=== PATIENT | male | born 1940 ===

== ENCOUNTER → 2020-05-28 13:55 | Outpatient (BNVA) | payer MEDICARE, SELFPAY | PROVIDERS: PCP Internal Medicine; Referring Provider Internal Medicine; Visit Provider Internal Medicine Cardiovascular Disease | DX: Z45.018 Encounter for adjustment and management of other part of cardiac pacemaker (principal); I25.10 Atherosclerotic heart disease of native coronary artery without angina pectoris; R07.89 Other chest pain | CPT/HCPCS: 99212 ==

== ENCOUNTER → 2020-06-11 08:18 | Outpatient (REF) | payer MEDICARE, SELFPAY ==
--- NOTE | 2020-06-11 | NM_ITS ---
Myocardial perfusion study Indication: Chest pressure with prior coronary artery disease and bypass to evaluate for myocardial ischemia Technique: The patient was brought in for a Lexiscan perfusion study on 06/11/2020. Patient performed low-level exercise and was injected 0.4 mg of Lexiscan intravenously. Within a minute of injection, 25 mCi of sestamibi was given intravenously. Images were obtained using the SPECT gamma camera interlaced with the gating device. Images were obtained in supine position. Resting perfusion study was performed on 06/15/2020. Patient was administered 25 mCi of sestamibi intravenously at rest. Images were then obtained in supine position. Images obtained with and without CT attenuation. Total DLP 57 mGy-cm. Images were processed with the software and compared side to side in short axis, horizontal long axis and vertical long axis views. Findings: The stress perfusion study showed non attenuated images show moderately reduced uptake in the basal inferior wall of the LV myocardium as well as mildly reduced uptake in the septum of the LV myocardium. Remainder of the LV myocardium is normally perfused. Attenuation corrected images show mildly reduced uptake in the basal inferior as well as distal anterior and apex of the LV myocardium.. The gated study shows normal LV systolic function with calculated LVEF of 69%. LV cavity is not present size. The gated study shows normal wall thickening and contraction of all segments except the basal inferior segment. Resting study shows no significant change in perfusion pattern compared to stress perfusion study. Gating at rest reveals normal systolic wall motion with ejection fraction at greater than 70 %. 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 NM/NM merlyn perf SPECT rest & str Impression: 1. Myocardial perfusion imaging study shows no ischemia with inferobasal NONTRANSMURAL infarct 2. Gated LVEF is 69% 3. Transient ischemic dilatation not present EKG is nondiagnostic for ischemia
--- NOTE | 2020-06-11 08:20 | CA_ITS ---
Transthoracic Echocardiogram Patient (Last, First, Middle): Kurt Henderson, Gender: Male Date of : 1940 Age: 79 Procedure Date: 06/11/2020 Procedure Type: Transthoracic Echocardiogram Location: OP Height: 165.1 cm Weight: 70.31 kg BSA: 1.78 m2 Heart Rate: bpm BP: 110 / 80 mmHg [employer] Bl[employer]: JOANNA Referring MD: David Perez MD Resource Conservationist: David Perez MD Symptoms: I10 - Essential (primary) hypertension, CAD Study Quality: Good ECG Rhythm: Sinus Conclusions: - 1. Normal LV systolic function with grade 1 diastolic dysfunction with regional wall motion abnormality suggestive underlying coronary disease 2. Normal cardiac valvular Doppler with calcific aortic valve changes 3. Normal RV systolic pressure 4. No pericardial effusion Findings Left Ventricle Normal left ventricular size, thickness, and systolic function. The visually estimated ejection fraction is between 55-60%. Spectral Doppler is indicative of an impaired relaxation filling pattern. E/E prime ratio is <8, consistent with normal filling pressures. Evidence suggests grade I (mild) diastolic dysfunction. Wall Motion Rest Echo Findings The basal inferior and basal inferoseptal segments are akinetic. All other scored wall segments showed normal motion. Right Ventricle Normal right ventricular cavity size and systolic function. There is a pacemaker wire seen in the right ventricle. Atria The left atrium is likely dilated. There is no evidence of interatrial shunt. The right atrium is normal in size. A pacemaker wire is identified in the right atrium. Aortic Valve There is mild calcification of the aortic valve. There is moderate thickening of the aortic valve. There is no aortic valve stenosis. There is no aortic valve regurgitation. Mitral Valve There is mild anterior and posterior mitral leaflet thickening. There is trace mitral valve regurgitation. There is no mitral valve stenosis. Pulmonic Valve The pulmonic valve was not well visualized. Tricuspid Valve Likely normal tricuspid valve structure and function. There is mild tricuspid valve regurgitation. The right ventricular systolic pressure is normal. The right ventricular systolic pressure is 28 mmHg. There is no evidence of pulmonary hypertension. Great Vessels All visible segments of the aorta are normal in size. The pulmonary artery was not well visualized. Venous The inferior vena cava is normal in size and collapses greater than 50% with inspiration. Pericardium/Pleural There is no evidence of pericardial effusion. Prior Study Comparison No previous study in the last 5 years for comparison Measurements 2D Linear Measurements IVSd: 0.90 0.6-0.9/0.6-1.0 cm LVIDd: 4.26 3.9-5.3/4.2-5.9 cm LVIDd Index: 2.39 2.4-3.2/2.2-3.1 cm/m2 LVIDs: 3.33 2.0-3.6 cm LVPWd: 1.17 0.7-1.1 cm Ao Root: 2.90 2.1-3.5 cm LA Diam: 3.20 2.7-3.8/3.0-4.0 cm LAIDs Index: 1.80 1.5-2.3 cm/m2 LV Mass: 183.51 67-162/88-224 g LV Mass Index: 103.09 43-95/49-115 g/m2 LVOT Diam: 2.20 3.0+(-)1.3 cm 2D Systolic Function EF 4C: 64.90 >55% EF 2C: 54.80 >55% EF BiP: 59.00 >55% Mitral Valve MV Pk E: 0.48 MV PK A: 0.55 MV Decel Time: 303.00 E/A: 0.90 E'Lateral: 8.49 E'Medial: 5.22 E/E' Med: 9.30 E/E' Lat: 5.70 PHT: 89.00 MVA PHT: 2.47 Decel Ransom: 1.60 Aortic Valve AoV Pk Ramana: 0.94 AoV Pk Grad: 4.00 LVOT LVOT Pk Ramana: 0.87 LVOT Mn Ramana: 0.57 LVOT VTI: 0.20 LVOT Pk Grad: 3.00 LVOT Mn Grad: 2.00 LVOT Diam: 2.20 LVOT Area: 3.80 Diastolic Function MV Pk E: 0.48 MV Pk A: 0.55 E/A: 0.90 E'Medial: 5.22 E/E' Med: 9.30 E' Laterial: 8.49 E/E' Lat: 5.70 Tricuspid Valve TR Pk Ramana: 2.50 TR Pk Grad: 25.00 RA Press: 3.00 RVSP: 28.00 Great Vessels Aorta Ao Root-2D: 2.90 2.0-3.7 cm Updated in Other Vendor System with Status of Final David Perez MD electronically signed on 06/12/2020 2:43:32 PM with status of Final
--- NOTE | 2020-06-11 08:20 | CA_ITS ---
Acquisition Time: 2020-06-11 10:16:24 Total Exercise Time: 00:02:00 Test Indications: cp Medications: see chart Protocol: LEXISCAN Max HR: 075 BPM 52% of Pred: 143 BPM Max BP: 116/078 mmHG Max Work Load: 1.0 METS Pharmacological stress test with Lexiscan injection, while sitting and kicking his legs, without anginal symptoms, with sinus arrythmia and one PVC, with normotensive response to injection, with nondiagnostic EKG for ischemia. Nuclear images pending. Test reviewed with Dr Perez. Referred By: David Perez Overread By: TOM MOLINA
== END ==
LOC: HO.CARD 08:18
PROVIDERS: PCP Internal Medicine Cardiovascular Disease; Visit Provider Internal Medicine Cardiovascular Disease
DX: I25.10 Atherosclerotic heart disease of native coronary artery without angina pectoris (principal); R07.89 Other chest pain; I10 Essential (primary) hypertension
CPT/HCPCS: 78452; 93017; 93306; A9500; J0280; J2785

== ENCOUNTER → 2020-12-01 11:10 | Outpatient (BNVA) | payer MEDICARE, SELFPAY | PROVIDERS: PCP Internal Medicine; Referring Provider Internal Medicine; Visit Provider Internal Medicine Cardiovascular Disease | DX: Z45.018 Encounter for adjustment and management of other part of cardiac pacemaker (principal); I25.10 Atherosclerotic heart disease of native coronary artery without angina pectoris | CPT/HCPCS: 99212 ==

== ENCOUNTER 2021-03-16 14:01 | Inpatient (IN) | payer MEDICARE, SELFPAY ==
--- NOTE | ~2021-03-16 | XR_ITS ---
EXAMINATION: XR KNEE, LEFT CLINICAL INFORMATION: Left knee swelling COMPARISON: None TECHNIQUE: Two views of the left knee. FINDINGS: No fracture or dislocation is seen. The bones are osteopenic. There is degenerative meniscal calcification. There is joint space narrowing at the medial femoral tibial joint. There is joint space narrowing and osteophyte formation at the patellofemoral joint. There is a moderate to large joint effusion. There is soft tissue arterial calcification. XR/XR knee LT 2V IMPRESSION: Moderate to large joint effusion and degenerative changes.
--- NOTE | ~2021-03-16 | XR_ITS ---
EXAMINATION: XR ELBOW, RIGHT CLINICAL INFORMATION: Fracture COMPARISON: Previous x-ray 03/16/2021 TECHNIQUE: AP, lateral, and oblique views of the right elbow. FINDINGS: There is a comminuted displaced fracture of the olecranon. This appears unchanged from recent exam. No other fracture is seen. Joint spaces are normal. There is an elbow joint effusion. There is overlying soft tissue swelling. There is a splint. XR/XR elbow RT 2V IMPRESSION: No change in the comminuted displaced olecranon fracture.
--- NOTE | ~2021-03-16 | XR_ITS ---
EXAMINATION: XR ELBOW, RIGHT CLINICAL INFORMATION: Trauma, pain COMPARISON: None TECHNIQUE: AP, lateral, and oblique views of the right elbow. FINDINGS: There is comminuted fracture involving the proximal olecranon. It is uncertain if this extends to the articular surface. There is no destructive process or dislocation. The distal humerus and proximal radius appear intact. There is small medial epicondylar spur. No visible elbow capsular effusion. XR/XR elbow RT min 3V IMPRESSION: Comminuted fracture proximal olecranon.
--- NOTE | ~2021-03-16 | CT_ITS ---
EXAMINATION: CT HEAD WITHOUT CONTRAST CT CERVICAL SPINE WITHOUT CONTRAST CLINICAL INFORMATION: Fall. COMPARISON: CT head and cervical spine February 27, 2020, December 03, 2019. TECHNIQUE: Imaging was performed from the skull base to vertex without intravenous administration of contrast. In addition, helical noncontrast CT imaging was acquired through the cervical spine and source images were reviewed along with axial reconstructions and sagittal and coronal MPRs. [This CT examination was performed using dose optimization techniques as appropriate, variously including the following: *Automated exposure control *Adjustment of mA and/or kV according to patient size (this includes techniques or standardized protocols for targeted exams where dose is matched to indication/reason for exam; i.e. extremities or head) *Use of iterative reconstruction technique] DLP: 1042 mGy-cm FINDINGS: HEAD: No intracranial mass, hemorrhage, or midline shift is visualized. There is generalized global volume loss. There is mild prominence of the ventricles and the sulci . There is mild hypodensity of the periventricular white matter due to chronic small vessel ischemic disease. There are vascular calcifications of the internal carotid arteries bilaterally. . No extra-axial collections are identified. Small volume of sinus mucosal disease in the inferior right maxillary sinus. The right frontal sinus is entirely opacified. Small volume of mucosal thickening in the anterior right ethmoid sinus. Mastoid air cells and middle ear cavities are normally aerated. CERVICAL SPINE: There is no evidence of acute cervical spine fracture. Vertebral bodies remain normal in height. Cervical vertebrae have normal alignment. There is multilevel degenerative spondylosis of the cervical spine with disc height narrowing and endplate spurs and facet joint arthrosis No pre- or paravertebral soft tissue abnormality is identified. There is an irregular 1.5 cm triangular lesion in the right upper lobe. This is unchanged since the CT of cervical spine December 03, 2019. This does have a thin calcification within it.. There is a partially calcified 7 mm lung nodule in the right upper lobe. Pacemaker leads partially visualized in the superior mediastinum. There is extensive vascular calcifications of the aorta and of carotid arteries. CT/CT cervical spine wo con IMPRESSION: 1. No acute intracranial pathology. 2. No CT evidence of acute cervical spine fracture or traumatic subluxation 3. Irregular 1.5 cm lesion right upper lobe. This is chronic unchanged since CAT scan of December 03, 2019.
--- NOTE | ~2021-03-16 | XR_ITS ---
EXAMINATION: RIGHT WRIST X-RAY CLINICAL INFORMATION: Pain post fall COMPARISON: None TECHNIQUE: 3 views of the right wrist FINDINGS: Bone alignment is normal. No fracture or dislocation is seen. There is arthritis at the first [facility] joint and trapezoid trapezium point joints. Soft tissues are unremarkable. XR/XR chest 1V IMPRESSION: Arthritis. No fracture or dislocation seen. EXAMINATION: Right elbow x-ray CLINICAL INFORMATION: Pain post fall COMPARISON: None. TECHNIQUE: 3 views of the right elbow FINDINGS: There is a comminuted displaced fracture of the olecranon. No other fracture is seen. Joint spaces are normal. There is an elbow joint effusion. There is soft tissue swelling over the fracture. IMPRESSION: Comminuted displaced fracture of the olecranon. EXAMINATION: Right shoulder x-ray CLINICAL INFORMATION: Pain post fall COMPARISON: None. TECHNIQUE: 3 views of the right shoulder FINDINGS: Bone alignment is normal. No fracture or dislocation is seen. The glenohumeral joint is normal. There is arthritis at the acromioclavicular joint. Soft tissues are unremarkable. IMPRESSION: Arthritis at the acromioclavicular joint. EXAMINATION: Chest x-ray CLINICAL INFORMATION: Pain post fall COMPARISON: Previous chest x-ray August 2016 TECHNIQUE: One view of the chest FINDINGS: The cardiac silhouette is slightly enlarged. Thoracic aorta is tortuous. The pulmonary tavon appear prominent. There is a new right subclavian dual chamber pacemaker. There is a small dense right upper lobe nodule that appears unchanged. The lungs are otherwise clear. There is no pleural effusion or pneumothorax. There are surgical clips in the left axilla. There are degenerative changes of the spine. IMPRESSION: No evidence for acute disease in the chest. Prominent pulmonary tavon questionable for enlarged pulmonary arteries versus lymphadenopathy.
--- NOTE | ~2021-03-16 | XR_ITS ---
EXAMINATION: RIGHT WRIST X-RAY CLINICAL INFORMATION: Pain post fall COMPARISON: None TECHNIQUE: 3 views of the right wrist FINDINGS: Bone alignment is normal. No fracture or dislocation is seen. There is arthritis at the first INTERMEDIATE joint and trapezoid trapezium point joints. Soft tissues are unremarkable. XR/XR wrist RT min 3V IMPRESSION: Arthritis. No fracture or dislocation seen. EXAMINATION: Right elbow x-ray CLINICAL INFORMATION: Pain post fall COMPARISON: None. TECHNIQUE: 3 views of the right elbow FINDINGS: There is a comminuted displaced fracture of the olecranon. No other fracture is seen. Joint spaces are normal. There is an elbow joint effusion. There is soft tissue swelling over the fracture. IMPRESSION: Comminuted displaced fracture of the olecranon. EXAMINATION: Right shoulder x-ray CLINICAL INFORMATION: Pain post fall COMPARISON: None. TECHNIQUE: 3 views of the right shoulder FINDINGS: Bone alignment is normal. No fracture or dislocation is seen. The glenohumeral joint is normal. There is arthritis at the acromioclavicular joint. Soft tissues are unremarkable. IMPRESSION: Arthritis at the acromioclavicular joint. EXAMINATION: Chest x-ray CLINICAL INFORMATION: Pain post fall COMPARISON: Previous chest x-ray August 2016 TECHNIQUE: One view of the chest FINDINGS: The cardiac silhouette is slightly enlarged. Thoracic aorta is tortuous. The pulmonary tavon appear prominent. There is a new right subclavian dual chamber pacemaker. There is a small dense right upper lobe nodule that appears unchanged. The lungs are otherwise clear. There is no pleural effusion or pneumothorax. There are surgical clips in the left axilla. There are degenerative changes of the spine. IMPRESSION: No evidence for acute disease in the chest. Prominent pulmonary tavon questionable for enlarged pulmonary arteries versus lymphadenopathy.
--- NOTE | ~2021-03-16 | XR_ITS ---
EXAMINATION: RIGHT WRIST X-RAY CLINICAL INFORMATION: Pain post fall COMPARISON: None TECHNIQUE: 3 views of the right wrist FINDINGS: Bone alignment is normal. No fracture or dislocation is seen. There is arthritis at the first PENITENTIARY joint and trapezoid trapezium point joints. Soft tissues are unremarkable. XR/XR shoulder RT min 2V IMPRESSION: Arthritis. No fracture or dislocation seen. EXAMINATION: Right elbow x-ray CLINICAL INFORMATION: Pain post fall COMPARISON: None. TECHNIQUE: 3 views of the right elbow FINDINGS: There is a comminuted displaced fracture of the olecranon. No other fracture is seen. Joint spaces are normal. There is an elbow joint effusion. There is soft tissue swelling over the fracture. IMPRESSION: Comminuted displaced fracture of the olecranon. EXAMINATION: Right shoulder x-ray CLINICAL INFORMATION: Pain post fall COMPARISON: None. TECHNIQUE: 3 views of the right shoulder FINDINGS: Bone alignment is normal. No fracture or dislocation is seen. The glenohumeral joint is normal. There is arthritis at the acromioclavicular joint. Soft tissues are unremarkable. IMPRESSION: Arthritis at the acromioclavicular joint. EXAMINATION: Chest x-ray CLINICAL INFORMATION: Pain post fall COMPARISON: Previous chest x-ray August 2016 TECHNIQUE: One view of the chest FINDINGS: The cardiac silhouette is slightly enlarged. Thoracic aorta is tortuous. The pulmonary tavon appear prominent. There is a new right subclavian dual chamber pacemaker. There is a small dense right upper lobe nodule that appears unchanged. The lungs are otherwise clear. There is no pleural effusion or pneumothorax. There are surgical clips in the left axilla. There are degenerative changes of the spine. IMPRESSION: No evidence for acute disease in the chest. Prominent pulmonary tavon questionable for enlarged pulmonary arteries versus lymphadenopathy.
--- NOTE | ~2021-03-16 | XR_ITS ---
EXAMINATION: RIGHT WRIST X-RAY CLINICAL INFORMATION: Pain post fall COMPARISON: None TECHNIQUE: 3 views of the right wrist FINDINGS: Bone alignment is normal. No fracture or dislocation is seen. There is arthritis at the first JAIL joint and trapezoid trapezium point joints. Soft tissues are unremarkable. XR/XR elbow RT 2V IMPRESSION: Arthritis. No fracture or dislocation seen. EXAMINATION: Right elbow x-ray CLINICAL INFORMATION: Pain post fall COMPARISON: None. TECHNIQUE: 3 views of the right elbow FINDINGS: There is a comminuted displaced fracture of the olecranon. No other fracture is seen. Joint spaces are normal. There is an elbow joint effusion. There is soft tissue swelling over the fracture. IMPRESSION: Comminuted displaced fracture of the olecranon. EXAMINATION: Right shoulder x-ray CLINICAL INFORMATION: Pain post fall COMPARISON: None. TECHNIQUE: 3 views of the right shoulder FINDINGS: Bone alignment is normal. No fracture or dislocation is seen. The glenohumeral joint is normal. There is arthritis at the acromioclavicular joint. Soft tissues are unremarkable. IMPRESSION: Arthritis at the acromioclavicular joint. EXAMINATION: Chest x-ray CLINICAL INFORMATION: Pain post fall COMPARISON: Previous chest x-ray August 2016 TECHNIQUE: One view of the chest FINDINGS: The cardiac silhouette is slightly enlarged. Thoracic aorta is tortuous. The pulmonary tavon appear prominent. There is a new right subclavian dual chamber pacemaker. There is a small dense right upper lobe nodule that appears unchanged. The lungs are otherwise clear. There is no pleural effusion or pneumothorax. There are surgical clips in the left axilla. There are degenerative changes of the spine. IMPRESSION: No evidence for acute disease in the chest. Prominent pulmonary tavon questionable for enlarged pulmonary arteries versus lymphadenopathy.
[2021-03-16 14:29] VITALS: BP 135/75; PULSE 62; RESP 18; TEMP 36.7; O2SAT 93; BMI 25.7
--- NOTE | 2021-03-16 15:06 | ED_ITS ---
HPI - General Adult General Chief complaint: General Medical Stated complaint: fractured rt elbow Time Seen by Provider: 03/16/21 14:14 Source: patient and family Mode of arrival: ambulatory Limitations: no limitations History of Present Illness HPI narrative: 80-year-old male with past medical history CAD, hypertension, depression, diabetes, breast cancer presents to the emergency department with multiple complaints. He is accompanied by his daughter who is at the bedside she states that she was seen earlier by his PCP, who stated he had a right olecranon fracture. She states he fell yesterday while he got up to go to the bathroom. It is unclear whether this was a mechanical fall, or whether this fall was due to dizziness. When he fell he hit his head, it is unclear how long he was on the floor for, he denies LOC and SMITH. According to the daughter he also had another fall today, where he fell on his bottom. She states that they are not just worried about the fracture, but they state he has had a evident cognitive decline. Per the daughter he has been more depressed than usual, and states that he having aphasia. She has noticed this decrease in cognitive decline worsening over the past week. She also states that he appears confused. Prior to this fall, they report no other falls. History is limited due to patient not answering questions, he is only answering to yes or no questions He lives at home, with his daughter and his . Denies chest pain, shortness of breath, dizziness, fevers, chills, changes in urination, numbness, paresthesias. Patient's daughter states this is not close to the patient's baseline, and he appears altered and very weak. Currently taking Bactrim for a UTI daughter states that he has a few doses left Onset (ago): day(s) (1) Related Data Home Medications Medication Instructions Recorded Confirmed alendronate 70 mg tablet 70 mg PO QWEEK 05/28/20 12/01/20 bimatoprost 0.01 % eye drops 1 drp OPHTHALMIC (EYE) BEDTIME 05/28/20 12/01/20 finasteride 5 mg tablet 5 mg PO DAILY 05/28/20 12/01/20 lamotrigine 25 mg tablet 25 mg PO DAILY 05/28/20 12/01/20 metformin 500 mg tablet,extended 500 mg PO QAM 05/28/20 12/01/20 release 24 hr pantoprazole 40 mg tablet,delayed 40 mg PO DAILY 05/28/20 12/01/20 release bupropion HCl 100 mg tablet,12 hr 150 mg PO QAM tab 12/01/20 12/01/20 sustained-release Previous Rx's Medication Instructions Recorded isosorbide mononitrate 60 mg 60 mg PO DAILY #90 tab 07/24/20 tablet,extended release 24 hr metoprolol tartrate 25 mg tablet 25 mg PO BID 90 Days #180 tab 10/01/20 atorvastatin 80 mg tablet 80 mg PO DAILY #90 tab 12/31/20 Allergies Allergy/AdvReac Type Severity Reaction Status Date / Time metoprolol AdvReac Unknown bradycardia Verified 03/16/21 14:28 timolol AdvReac Unknown low bp Verified 03/16/21 14:28 Review of Systems Review of Systems: Constitutional : No Weight loss, No Fever, No Chills, + Fatigue, No Malaise ENT/Mouth : No sore throat, No Rhinorrhea Eyes: No Eye Pain, No Swelling, No Redness Cardiovascular : No Chest Pain, No SOB, No Dyspnea on Exertion, No Orthopnea, No Edema, No Palpitations Respiratory : No Cough, No Sputum, No Wheezing Gastrointestinal : No Nausea, No Vomiting, No Diarrhea, No Constipation, No abdominal Pain, No Hematochezia, No Melena Genitourinary : No Dysuria, No Urinary Frequency, No Hematuria, Musculoskeletal : + joint pain (right elbow), No Myalgias, + Joint Swelling (right elbow), +fall Skin : No Skin Lesions, No rash Neuro : + Weakness, No Numbness, No Dizziness, No Headache Psych : No Anxiety/Panic, + Depression Heme/Lymph: No Bruising, No Bleeding,No Lymphadenopathy Endocrine : No Polyuria, No Polydipsia All other systems reviewed and are negative [facility] Past Medical History Medical History CAD (coronary artery disease) Cardiac pacemaker in situ Diabetes History of left breast cancer HTN (hypertension) Hyperlipidemia Sick sinus syndrome Surgical History History of permanent cardiac pacemaker placement Hx of CABG Hx of cataract surgery Hx of mastectomy Family History Family History Father CVD (cardiovascular disease) Mother CVD (cardiovascular disease) Brother CVD (cardiovascular disease) Sister Diabetes Son Diabetes Social History Social History Alcohol intake: never Patient Tobacco Use Status: Never used Tobacco Use of substances other than those prescribed or required for medical reasons: No Advance Directives: No Advance Directives Information Provided: No Physical Exam Vital Signs: Vital Signs: Last Vital Signs Temp 98.0 F 03/16/21 14:29 Pulse 62 03/16/21 14:29 Resp 18 03/16/21 14:29 BP 135/75 03/16/21 14:29 Pulse Ox 93 03/16/21 14:29 Body Mass Index 25.7 Appearance: Alert. Oriented to person. No acute distress. Unable to speak in full sentences, evident aphasia. Eyes: Pupils equal, round and reactive to light. ENT: Pharynx normal. Neck: Normal inspection. Neck supple. CVS: Normal heart rate and rhythm. Pulses normal. Respiratory: No respiratory distress. Breath sounds normal. Abdomen: Soft and nontender. Skin: Skin warm and dry. Normal skin color. Normal skin turgor. Extremities: No lower extremity edema. No calf ttp + Ambulating with a shuffling gait + Edema, evident swelling and erythema and abrasions overlying right elbow. Patient denies pain with ROM to elbow, shoulder, wrist, hips and foot. 2+ pulses qual and bilateral to upper and lower extremities. Neuro: Oriened to person. +Diffuse weakness. No sensory deficit. No facial drooping Course Course Course Narrative: Sign-out given To CEFERINO Burton Procedures Orthopedic Splinting/Casting Injury #1: Side: right Upper Extremity Injury Location: elbow Upper Extremity Immobilizer: sling/shoulder immobilizer and posterior splint Additional Comments: NV intact post placement Medical Decision Making MDM Narrative Medical decision making narrative: 80-year-old male past history CAD, hypertension, diabetes these comment is risk cancer presents to the emergency department with a right olecranon fracture found by his PCP earlier today, and failure to thrive. Most of the history is obtained from patient's daughter who is at the bedside, since the patient is not able to answer questions he is able to answer yes no questions. This is a concern for his he has new onset aphasia that started a week ago. She states that he fell about 36 hours of all, the fall was unwitnessed, he states he hit his head, he fell onto his right side. His PCP found an olecranon fracture but he is not complaining of any pain. She has also noted that over the past week he has had some cognitive decline, he is not his usual self, not speaking in full sentences, seems confused, and is more depressed than usual. He lives at home with his daughter and . She also adds that he is currently taking Bactrim for a UTI. Upon physical examination he denies tenderness to palpation over the elbow, wrist, shoulder, hip, knee, foot. There is a small abrasion noted over the right olecranon. He has full passive range of motion. Upper and lower extremities have 2+ pulses equal and bilateral. No wrist drop noted. Cap refill less than 2 seconds. No evident signs of trauma to the head. He is diffusely weak upper and lower extremities. There is no facial droop noted. He is not speaking in full sentences, in just answers yes or no. Sensation intact upper and lower extremities To the patient's physical exam, patient's altered mentation, and history obta ined from the family a CT of the head will be done to rule out a bleed. Plan-EKG, CT of spine, CT of head and brain x-ray of right shoulder, elbow, wrist and chest, ammonia, calcium, urine drug screen, COVID, ethanol, lactic acid, magnesium, troponin, TSH, UA, VBG, acetaminophen level, BMP, CBC, CK, liver panel and blood cultures have been ordered. ECG Data Attestation: I personally reviewed and interpreted this ECG as follows: Prior ECG tracings: available for review Interpretation: Rate: 62 Rhythm: Normal sinus [place]: Left Normal P waves. Normal [place]. Normal QRS complex. ST T wave : No ST elevations, T-wave inversion qTC: Normal prior studies: When compared to previous EKG on 03/06/2019 no significant changes. No acute signs of ischemia. The study has been interpreted contemporaneously by me. . Discharge Plan Discharge Clinical Impression: Acute confusion Elbow fracture, right Qualifiers: Encounter type: initial encounter Fracture type: closed Qualified Code(s): S42.401A - Unspecified fracture of lower end of right humerus, initial encounter for closed fracture Prescriptions: No Action isosorbide mononitrate 60 mg tablet extended release 24 hr 60 mg PO DAILY Qty: 90 RF: 3 metoprolol tartrate 25 mg tablet 25 mg PO BID 90 Days Qty: 180 RF: 1 atorvastatin 80 mg tablet 80 mg PO DAILY Qty: 90 RF: 3 alendronate 70 mg tablet 70 mg PO QWEEK RF: 0 metformin 500 mg tablet extended release 24 hr 500 mg PO QAM RF: 0 lamotrigine 25 mg tablet 25 mg PO DAILY RF: 0 finasteride 5 mg tablet 5 mg PO DAILY RF: 0 pantoprazole 40 mg tablet,delayed release (DR/EC) 40 mg PO DAILY RF: 0 Lumigan 0.01 % drops 1 drp ophthalmic (eye) BEDTIME RF: 0 bupropion HCl 100 mg tablet sustained-release 12 hr 150 mg PO QAM RF: 0
--- NOTE | 2021-03-16 15:13 | ECG_ITS ---
Test Reason : WEAKNESS/FALL Blood Pressure : / mmHG Vent. Rate : 062 BPM Atrial Rate : 062 BPM P-R Int : 208 ms QRS Dur : 088 ms QT Int : 420 ms P-R-T Axes : 000 -07 027 degrees QTc Int : 426 ms Normal sinus rhythm Inferior infarct , old Abnormal ECG When compared with ECG of 06-MAR-2019 09:59, Sinus rhythm is now Present Referred By: Cristela Villa Electronically Signed By:KERMIT LEROY
[2021-03-16 15:38] VITALS: BP 174/82; PULSE 82; RESP 18; TEMP 36.6; O2SAT 98
[2021-03-16 16:25] LABS: COVID-19 Test Negative (Negative)
[2021-03-16 17:01] LABS: Acetaminophen LAB < 1 mcg/mL (<30); Alanine Aminotransferase 34 U/L (0-40); Alkaline Phosphatase 81 U/L (39-117); Anion Gap 15 (12-20); Aspartate Amino Transferase 32 U/L (5-37); Bilirubin Direct 0.5 mg/dL (0.0-0.5); Bilirubin Total 1.1 mg/dL (0.0-1.0); Blood Urea Nitrogen 18 mg/dL (9-16); Carbon Dioxide 21 mmol/L (22-29); Chloride 108 mmol/L (96-108); Creatinine Clr Calc Pharmacy 46.8; Estimated Glomerular Filt Rate > 60; Glucose Random 103 mg/dL (60-115); Potassium 4.7 mmol/L (3.3-5.1); Sodium 139 mmol/L (135-145); Total Protein 6.4 g/dL (6.5-8.0)
[2021-03-16 17:11] LABS: VBG Base Excess -3.1 mmol/L; VBG HCO3 21 mmol/L (22-26); VBG pCO2 37 mmHg; VBG pH 7.36 (7.32-7.43); VBG pO2 47 mmHg
[2021-03-16 17:13] LABS: Venous Blood Gas Refer to POC result
[2021-03-16 17:16] LABS: Ammonia 27 umol/L (13-55)
[2021-03-16 17:22] LABS: Lactic Acid 2.3 mmol/L (0.5-2.0)
[2021-03-16 17:23] LABS: Ethanol < 10 mg/dL
[2021-03-16 17:30] LABS: Troponin-I High Sensitivity 10.1 ng/L (<3.5-35.0)
--- NOTE | 2021-03-16 17:33 | PHA.MEDREC ---
Pharmacy Consult ? Medication Reconciliation Pharmacy has completed the medication reconciliation. There are no remarkable issue for provider's attention. Reviewed medication with patient's daughter. Patient has 5 pills left of Bactrim. Ysabel Mcbride, ArunD
--- NOTE | 2021-03-16 17:36 | PC.NURSE ---
pt a very difficult stick, call made to phlebotomy to continue blood draw for CBC
[2021-03-16 17:42] LABS: Glucose, Whole Blood 94 mg/dL (60-115)
[2021-03-16 17:45] LABS: Appearance Urine CLEAR; Color Urine YELLOW; Glucose Urine UA NEG (NEG); Leukocyte Esterase Urine NEG (NEG); Nitrite Urine NEG (NEG); Specific Gravity - Urine >= 1.030 (1.005-1.025); Urine Blood NEG (NEG); Urine Ketones 5 MG/DL (NEG); Urine Protein NEG (NEG-TRACE)
[2021-03-16 17:46] LABS: TSH reflex Free T4 1.77 uIU/mL (0.32-4.0)
[2021-03-16 18:08] LABS: Amphetamine Screen Urine Not Detected (Not Detect); Barbiturates, Urine Not Detected (Not Detect); Benzodiazepines Screen Urine Not Detected (Not Detect); Cannabinoid Screen Urine Not Detected (Not Detect); Cocaine Screen Urine Not Detected (Not Detect); Fentanyl, urine Not Detected (Not Detect); Opiate Screen Urine Not Detected (Not Detect); Phencyclidine Screen Urine Not Detected (Not Detect)
[2021-03-16 19:06] LABS: Reflex Lactate? Lactic Acid Added
[2021-03-16 19:19] VITALS: BP 132/68; PULSE 66; RESP 16; TEMP 36.8; O2SAT 94
[2021-03-16 19:31] LABS: Lactic Acid 1.5 mmol/L (0.5-2.0)
[2021-03-16 19:46] LABS: MANUAL DIFF FLAG NO
[2021-03-16 19:47] LABS: Basophils Percent Auto 0.5 % (0-2); Eosinophils Absolute Auto 0.1 X10*3/uL (0.0-0.4); Eosinophils Percent Auto 1.6 % (0-4); Hematocrit 40.5 % (42-52); Hemoglobin 13.6 g/dl (14.0-18.0); Imm Gran Abs Auto 0.03 X10*3/uL (0.00-0.03); Imm Gran Pct Auto 0.3 % (0.0-0.4); Lymphocytes Absolute Auto 0.7 X10*3/uL (1.2-4.9); Lymphocytes Percent Auto 7.5 % (20-40); Mean Corpuscular HGB Conc 33.6 g/dl (31.0-36.0); Mean Corpuscular Hemoglobin 30.4 pg (27.0-33.0); Mean Corpuscular Volume 90.4 fL (80-98); Monocytes Absolute Auto 0.6 X10*3/uL (0.1-1.2); Monocytes Percent Auto 6.9 % (2-11); Neutrophils Absolute Auto 7.2 X10*3/uL (2.0-8.3); Neutrophils Percent Auto 83.2 % (45-73); Platelet Count 205 X10*3/uL (160-400); Red Blood Count 4.48 X10*6/uL (4.60-5.80); Red Cell Distribution Width 13.8 % (11.0-16.0); White Blood Count 8.7 X10*3/uL (4.8-10.8)
[2021-03-16] MEDS: Ketorolac Tromethamine 15 MG/ML VIAL 30 MG IM (21:40)
[2021-03-16 23:48] VITALS: BP 155/65; PULSE 66; TEMP 36.3; O2SAT 93
[2021-03-17] VITALS (8 sets, daily range): BP systolic 120–180; BP diastolic 53–113; PULSE 55–74; RESP 16–20; TEMP 36.9–37.1; O2SAT 91–94
[2021-03-17] MEDS: 0.9 % Sodium Chloride 1,000 ML 999 ML IV (01:17)
[2021-03-17 01:19] LABS: Troponin-I High Sensitivity 10.7 ng/L (<3.5-35.0)
[2021-03-17 02:50] LABS: Glucose, Whole Blood 66 mg/dL (60-115)
[2021-03-17] MEDS: Glucose Gel 15 GM GEL..GRAM. PO (03:20)
--- NOTE | 2021-03-17 03:21 | PC.NURSE ---
plan for patient to go into the pod as he is unable to walk. Patient shuffles despite assistance from staff. Patient refuses to speak and only shakes his head no at this point. Patient referred for crisis consult. Patient moved from 6 [address] into bed 7. He also has a consult with case management.
[2021-03-17 03:52] LABS: Glucose, Whole Blood 75 mg/dL (60-115)
[2021-03-17 06:32] LABS: Glucose, Whole Blood 122 mg/dL (60-115)
--- NOTE | 2021-03-17 09:05 | MHC.CM.ED ---
Addendum entered by Shireen Lindsay 03/17/21 11:46: Cheo Carpio, pace analyst, N will not be able to eval patient before 5pm. Shirin has notified the Care team. Original Note: Received case management consult overnight. Crisis eval is still pending. Will not be able to assess patient for CM until cleared by Crisis. Continue to monitor for d/c needs.
[2021-03-17] MEDS: Finasteride 5 MG TABLET PO (10:03)
[2021-03-17] MEDS: metFORMIN HCl ER 500 MG TAB.ER.24H PO (10:03)
[2021-03-17] MEDS: Metoprolol Tartrate 25 MG TABLET PO ×2 (10:03→19:20)
[2021-03-17] MEDS: Isosorbide Mononitrate 60 MG TAB.ER.24H PO (10:06)
[2021-03-17] MEDS: Atorvastatin Calcium 80 MG TABLET PO (10:06)
[2021-03-17] MEDS: buPROPion HCl XL 300 MG TAB.ER.24H PO (10:06)
[2021-03-17] MEDS: lamoTRIgine 25 MG TABLET PO ×2 (10:06→19:21)
[2021-03-17] MEDS: Sulfamethox/Trimeth 800/160 TABLET 1 TAB PO ×2 (10:06→19:20)
[2021-03-17] MEDS: Omeprazole 20 MG CAPSULE.DR PO (10:07)
--- NOTE | 2021-03-17 16:28 | PM.PSYCN ---
History of Present Illness Date of Service: 03/17/21 Chief Complaint: fractured rt elbow Reason for Consult: Major depression, anxiety, racing thoughts. Requesting physician: Earl Kelly Discussed with referring provider: Yes Sources of Information: patient interviewed, chart reviewed and crisis/core team assessment reviewed HPI Narrative: Patient is a 80-year-old male with past medical history of CAD, hypertension, depression, diabetes, breast cancer, presented to the emergency department with multiple complaints. Psychiatry was asked to meet with patient regarding psychiatric symptoms and recommendations. Upon entering room, patient appeared to be resting comfortably in bed, right arm in splint. His daughter Melissa was present, and he gave verbal permission for her to stay in the room. Patient has a history of bipolar 1 disorder, with 1st hypomanic episode noted in 2016 when he was a patient at [facility]. He had been admitted to in February 2019, and received ECT up until early 2019. Treatment was successful, with remission of symptoms. Patient has been prescribed several medications over the past several years, including air appear bruises all, duloxetine. Patient's care in medications include Lamictal 50 mg daily, as well as recently being restarted on Zyprexa 2.5 mg daily. The zyprexa was started several days ago. Patient has a psychiatrist, Dr. Arianne Dick, through [facility]. Patient was alert and oriented x4, and was fully cooperative with interview. Both he and his daughter report that he was diagnosed with bipolar disorder several years ago, while receiving treatment at [facility]. He has tried several different medications, and his outpatient psychiatrist has recently put him back on Zyprexa several days ago. He is also on Lamictal, currently receiving 25 mg twice daily. He reports feeling ?okay?, but that ?there is something happening to my memory, and I am not sleeping good ?. When asked to explain further, he and his daughter both reported that it is almost as if he is it experiencing hypomania again. He denies any type of suicidal ideation, denies any type of hallucinations. Reports that this I practice of the past several days has not helped him sleep, and then stated ?my mind is racing ?. He has also been experiencing as per his daughter, brief periods where he slips into a trance state. From description, it appears as if he becomes briefly catatonic, without eating, taking medications, or sleeping, simply staring. They are brief however and he does appear to do better in late afternoon evenings. Patient states that he would like to be started back with ECT treatments, as it has been effective for him in the past. Past Psychiatric History: Diagnosed with bipolar disorder, 1st hypomanic episode 2017. IPLOC at [facility] in either 2018 or 2019, related to intrusive thoughts of a knife, and hurting his . Was IPLOC on M5 here in fall 2018, received ECT. Current psychiatrist Dr. Dick at [facility]. Medical Evaluation Reviewed: Yes Personal & Social History: Patient was raised by both parents. Currently retired, lives with . Has 15 children, 7 girls and 8 boys. Reports family as supportive. Review of Systems Review of Systems A full review of systems was completed and was negative with the exception of pertinent positives noted in history of the presenting illness (HPI). Daughter reports bouts of catatonia, with selective mutism, intermittent. Yes all other systems are reviewed and are negative Constitutional: Reports no additional constitutional complaints Eyes: Reports no additional eye complaints Reports system reviewed and no additional complaints, except as documented and Reports Normal hearing present Respiratory: Reports no additional respiratory complaints Gastrointestinal: Reports no additional gastrointestinal complaints Genitourinary: Reports no additional male genitourinary complaints Comments: right arm in splint due to elbow fracture. Skin/Breast: Reports system reviewed and no additional complaints, except as docu Reports Normal hearing present, Reports behavioral changes, Reports memory loss and Reports seizure-like activity Comments: Daughter reports bouts of catatonic-like behavior, with selective mutism, refusing meds. intermittent, states it comes and goes . Psychiatric: Reports as per HPI, Reports behavioral changes, Reports difficulty concentrating and Reports memory loss Comments: reports feeling hypomanic, with racing thoughts . Endocrine: Reports as per HPI Hematologic/Lymphatic: Reports as per HPI Allergic/Immunologic: Reports as per HPI [facility] Medical History CAD (coronary artery disease) Cardiac pacemaker in situ Diabetes History of left breast cancer HTN (hypertension) Hyperlipidemia Sick sinus syndrome Surgical History History of permanent cardiac pacemaker placement Hx of CABG Hx of cataract surgery Hx of mastectomy Family History: Mother diagnosed with bipolar disorder after prison, she was hospitalized in [place]. received ECT 20 years ago, has been stable since. Social History: Retired. Lives with . Has 7 daughter, 8 sons. Family is supportive. Substance History: None reported. Trauma History: None reported. Diagnostics Vital Signs (24Hr): Vital Signs - 24 hr 03/16/21 19:19 03/16/21 23:48 03/17/21 03:16 Temperature 98.3 F 97.4 F Pulse Rate 66 66 67 Respiratory Rate 16 Blood Pressure 132/68 155/65 H 180/60 H Pulse Oximetry 94 93 91 L 03/17/21 06:11 03/17/21 07:41 03/17/21 07:49 Temperature Pulse Rate 65 65 Respiratory Rate 16 18 Blood Pressure 145/113 H 145/113 H Pulse Oximetry 93 93 03/17/21 10:03 03/17/21 10:06 03/17/21 16:10 Temperature 98.5 F Pulse Rate 72 74 55 Respiratory Rate 20 Blood Pressure 155/89 H 155/89 H 120/53 L Pulse Oximetry 92 Body Mass Index 25.7 Labs Results: 03/16/21 19:42 03/16/21 16:39 Labs: Laboratory Results - last 48 hr 03/16/21 03/16/21 03/16/21 16:05 16:39 16:59 WBC RBC Hgb Hct MCV MCH MCHC RDW Plt Count MPV Immature Gran % (Auto) Neut % (Auto) Lymph % (Auto) [place] % (Auto) Eos % (Auto) Baso % (Auto) Lymph # (Auto) [place] # (Auto) Eos # (Auto) Baso # (Auto) Abs Immat Gran (auto) Absolute Neuts (auto) Absolute Nucleated RBC Nucleated RBC % (auto) VBG pH VBG pCO2 VBG pO2 VBG HCO3 VBG O2 Saturation VBG Base Excess Sodium 139 Potassium 4.7 Chloride 108 Carbon Dioxide 21 L Anion Gap 15 BUN 18 H Creatinine 1.13 Estim Creat Clear Calc 46.8 Estimated GFR > 60 POC Glucose Random Glucose 103 Lactic Acid Calcium 10.0 Magnesium 2.0 Total Bilirubin 1.1 H Direct Bilirubin 0.5 AST 32 ALT 34 Alkaline Phosphatase 81 Ammonia 27 Total Creatine Kinase 253 H Troponin I High Sens Total Protein 6.4 L Albumin 4.0 TSH Urine Color Urine Appearance Urine pH Ur Specific [place] Urine Protein Urine Glucose (UA) Urine Ketones Urine Blood Urine Nitrite Ur Leukocyte Esterase Urine Opiates Screen Urine Fentanyl Screen Acetaminophen < 1 Ur Barbiturates Screen Ur Phencyclidine Scrn Ur Amphetamines Screen U Benzodiazepines Scrn Urine Cocaine Screen U Marijuana (THC) Screen Ethyl Alcohol COVID-19 (ANDRE) Negative COVID-19 Clin Com See Note 03/16/21 03/16/21 03/16/21 16:59 16:59 16:59 WBC RBC Hgb Hct MCV MCH MCHC RDW Plt Count MPV Immature Gran % (Auto) Neut % (Auto) Lymph % (Auto) [place] % (Auto) Eos % (Auto) Baso % (Auto) Lymph # (Auto) [place] # (Auto) Eos # (Auto) Baso # (Auto) Abs Immat Gran (auto) Absolute Neuts (auto) Absolute Nucleated RBC Nucleated RBC % (auto) VBG pH VBG pCO2 VBG pO2 VBG HCO3 VBG O2 Saturation VBG Base Excess Sodium Potassium Chloride Carbon Dioxide Anion Gap BUN Creatinine Estim Creat Clear Calc Estimated GFR POC Glucose Random Glucose Lactic Acid 2.3 H* Calcium Magnesium Total Bilirubin Direct Bilirubin AST ALT Alkaline Phosphatase Ammonia Total Creatine Kinase Troponin I High Sens 10.1 Total Protein Albumin TSH 1.77 Urine Color Urine Appearance Urine pH Ur Specific [place] Urine Protein Urine Glucose (UA) Urine Ketones Urine Blood Urine Nitrite Ur Leukocyte Esterase Urine Opiates Screen Urine Fentanyl Screen Acetaminophen Ur Barbiturates Screen Ur Phencyclidine Scrn Ur Amphetamines Screen U Benzodiazepines Scrn Urine Cocaine Screen U Marijuana (THC) Screen Ethyl Alcohol COVID-19 (ANDRE) COVID-19 Clin Com 03/16/21 03/16/21 03/16/21 16:59 17:05 17:29 WBC RBC Hgb Hct MCV MCH MCHC RDW Plt Count MPV Immature Gran % (Auto) Neut % (Auto) Lymph % (Auto) [place] % (Auto) Eos % (Auto) Baso % (Auto) Lymph # (Auto) [place] # (Auto) Eos # (Auto) Baso # (Auto) Abs Immat Gran (auto) Absolute Neuts (auto) Absolute Nucleated RBC Nucleated RBC % (auto) VBG pH 7.36 VBG pCO2 37 VBG pO2 47 VBG HCO3 21 L VBG O2 Saturation 69.0 VBG Base Excess -3.1 Sodium Potassium Chloride Carbon Dioxide Anion Gap BUN Creatinine Estim Creat Clear Calc Estimated GFR POC Glucose Random Glucose Lactic Acid Calcium Magnesium Total Bilirubin Direct Bilirubin AST ALT Alkaline Phosphatase Ammonia Total Creatine Kinase Troponin I High Sens Total Protein Albumin TSH Urine Color YELLOW Urine Appearance CLEAR Urine pH 6.0 Ur Specific [place] >= 1.030 H Urine Protein NEG Urine Glucose (UA) NEG Urine Ketones 5 Urine Blood NEG Urine Nitrite NEG Ur Leukocyte Esterase NEG Urine Opiates Screen Urine Fentanyl Screen Acetaminophen Ur Barbiturates Screen Ur Phencyclidine Scrn Ur Amphetamines Screen U Benzodiazepines Scrn Urine Cocaine Screen U Marijuana (THC) Screen Ethyl Alcohol < 10 COVID-19 (ANDRE) COVID-19 [employer] Com 03/16/21 03/16/21 03/16/21 17:29 17:37 19:10 WBC RBC Hgb Hct MCV MCH MCHC RDW Plt Count MPV Immature Gran % (Auto) Neut % (Auto) Lymph % (Auto) [place] % (Auto) Eos % (Auto) Baso % (Auto) Lymph # (Auto) [place] # (Auto) Eos # (Auto) Baso # (Auto) Abs Immat Gran (auto) Absolute Neuts (auto) Absolute Nucleated RBC Nucleated RBC % (auto) VBG pH VBG pCO2 VBG pO2 VBG HCO3 VBG O2 Saturation VBG Base Excess Sodium Potassium Chloride Carbon Dioxide Anion Gap BUN Creatinine Estim Creat Clear Calc Estimated GFR POC Glucose 94 Random Glucose Lactic Acid 1.5 Calcium Magnesium Total Bilirubin Direct Bilirubin AST ALT Alkaline Phosphatase Ammonia Total Creatine Kinase Troponin I High Sens Total Protein Albumin TSH Urine Color Urine Appearance Urine pH Ur Specific [place] Urine Protein Urine Glucose (UA) Urine Ketones Urine Blood Urine Nitrite Ur Leukocyte Esterase Urine Opiates Screen Not Detected Urine Fentanyl Screen Not Detected Acetaminophen Ur Barbiturates Screen Not Detected Ur Phencyclidine Scrn Not Detected Ur Amphetamines Screen Not Detected U Benzodiazepines Scrn Not Detected Urine Cocaine Screen Not Detected U Marijuana (THC) Screen Not Detected Ethyl Alcohol COVID-19 (ANDRE) COVID-19 [employer] Com 03/16/21 03/17/21 03/17/21 19:42 00:53 02:46 WBC 8.7 RBC 4.48 L Hgb 13.6 L Hct 40.5 L MCV 90.4 MCH 30.4 MCHC 33.6 RDW 13.8 Plt Count 205 MPV 9.0 L Immature Gran % (Auto) 0.3 Neut % (Auto) 83.2 H Lymph % (Auto) 7.5 L [place] % (Auto) 6.9 Eos % (Auto) 1.6 Baso % (Auto) 0.5 Lymph # (Auto) 0.7 L [place] # (Auto) 0.6 Eos # (Auto) 0.1 Baso # (Auto) 0.0 Abs Immat Gran (auto) 0.03 Absolute Neuts (auto) 7.2 Absolute Nucleated RBC 0.000 Nucleated RBC % (auto) 0.0 VBG pH VBG pCO2 VBG pO2 VBG HCO3 VBG O2 Saturation VBG Base Excess Sodium Potassium Chloride Carbon Dioxide Anion Gap BUN Creatinine Estim Creat Clear Calc Estimated GFR POC Glucose 66 Random Glucose Lactic Acid Calcium Magnesium Total Bilirubin Direct Bilirubin AST ALT Alkaline Phosphatase Ammonia Total Creatine Kinase Troponin I High Sens 10.7 Total Protein Albumin TSH Urine Color Urine Appearance Urine pH Ur Specific [place] Urine Protein Urine Glucose (UA) Urine Ketones Urine Blood Urine Nitrite Ur Leukocyte Esterase Urine Opiates Screen Urine Fentanyl Screen Acetaminophen Ur Barbiturates Screen Ur Phencyclidine Scrn Ur Amphetamines Screen U Benzodiazepines Scrn Urine Cocaine Screen U Marijuana (THC) Screen Ethyl Alcohol COVID-19 (ANDRE) COVID-19 Clin Com 03/17/21 03/17/21 03:46 06:27 WBC RBC Hgb Hct MCV MCH MCHC RDW Plt Count MPV Immature Gran % (Auto) Neut % (Auto) Lymph % (Auto) [place] % (Auto) Eos % (Auto) Baso % (Auto) Lymph # (Auto) [place] # (Auto) Eos # (Auto) Baso # (Auto) Abs Immat Gran (auto) Absolute Neuts (auto) Absolute Nucleated RBC Nucleated RBC % (auto) VBG pH VBG pCO2 VBG pO2 VBG HCO3 VBG O2 Saturation VBG Base Excess Sodium Potassium Chloride Carbon Dioxide Anion Gap BUN Creatinine Estim Creat Clear Calc Estimated GFR POC Glucose 75 122 H Random Glucose Lactic Acid Calcium Magnesium Total Bilirubin Direct Bilirubin AST ALT Alkaline Phosphatase Ammonia Total Creatine Kinase Troponin I High Sens Total Protein Albumin TSH Urine Color Urine Appearance Urine pH Ur Specific [place] Urine Protein Urine Glucose (UA) Urine Ketones Urine Blood Urine Nitrite Ur Leukocyte Esterase Urine Opiates Screen Urine Fentanyl Screen Acetaminophen Ur Barbiturates Screen Ur Phencyclidine Scrn Ur Amphetamines Screen U Benzodiazepines Scrn Urine Cocaine Screen U Marijuana (THC) Screen Ethyl Alcohol COVID-19 (ANDRE) COVID-19 Clin [facility] Imaging Radiology Impressions: ITS Impressions Cervical Spine CT 03/16/21 15:12 IMPRESSION: 1. No acute intracranial pathology. 2. No CT evidence of acute cervical spine fracture or traumatic subluxation 3. Irregular 1.5 cm lesion right upper lobe. This is chronic unchanged since CAT scan of December 03, 2019. Elbow X-Ray 03/16/21 15:12 IMPRESSION: Arthritis. No fracture or dislocation seen. EXAMINATION: Right elbow x-ray CLINICAL INFORMATION: Pain post fall COMPARISON: None. TECHNIQUE: 3 views of the right elbow FINDINGS: There is a comminuted displaced fracture of the olecranon. No other fracture is seen. Joint spaces are normal. There is an elbow joint effusion. There is soft tissue swelling over the fracture. IMPRESSION: Comminuted displaced fracture of the olecranon. EXAMINATION: Right shoulder x-ray CLINICAL INFORMATION: Pain post fall COMPARISON: None. TECHNIQUE: 3 views of the right shoulder FINDINGS: Bone alignment is normal. No fracture or dislocation is seen. The glenohumeral joint is normal. There is arthritis at the acromioclavicular joint. Soft tissues are unremarkable. IMPRESSION: Arthritis at the acromioclavicular joint. EXAMINATION: Chest x-ray CLINICAL INFORMATION: Pain post fall COMPARISON: Previous chest x-ray August 2016 TECHNIQUE: One view of the chest FINDINGS: The cardiac silhouette is slightly enlarged. Thoracic aorta is tortuous. The pulmonary tavon appear prominent. There is a new right subclavian dual chamber pacemaker. There is a small dense right upper lobe nodule that appears unchanged. The lungs are otherwise clear. There is no pleural effusion or pneumothorax. There are surgical clips in the left axilla. There are degenerative changes of the spine. IMPRESSION: No evidence for acute disease in the chest. Prominent pulmonary tavon questionable for enlarged pulmonary arteries versus lymphadenopathy. Head CT 03/16/21 15:12 IMPRESSION: 1. No acute intracranial pathology. 2. No CT evidence of acute cervical spine fracture or traumatic subluxation 3. Irregular 1.5 cm lesion right upper lobe. This is chronic unchanged since CAT scan of December 03, 2019. Shoulder X-Ray 03/16/21 15:12 IMPRESSION: Arthritis. No fracture or dislocation seen. EXAMINATION: Right elbow x-ray CLINICAL INFORMATION: Pain post fall COMPARISON: None. TECHNIQUE: 3 views of the right elbow FINDINGS: There is a comminuted displaced fracture of the olecranon. No other fracture is seen. Joint spaces are normal. There is an elbow joint effusion. There is soft tissue swelling over the fracture. IMPRESSION: Comminuted displaced fracture of the olecranon. EXAMINATION: Right shoulder x-ray CLINICAL INFORMATION: Pain post fall COMPARISON: None. TECHNIQUE: 3 views of the right shoulder FINDINGS: Bone alignment is normal. No fracture or dislocation is seen. The glenohumeral joint is normal. There is arthritis at the acromioclavicular joint. Soft tissues are unremarkable. IMPRESSION: Arthritis at the acromioclavicular joint. EXAMINATION: Chest x-ray CLINICAL INFORMATION: Pain post fall COMPARISON: Previous chest x-ray August 2016 TECHNIQUE: One view of the chest FINDINGS: The cardiac silhouette is slightly enlarged. Thoracic aorta is tortuous. The pulmonary tavon appear prominent. There is a new right subclavian dual chamber pacemaker. There is a small dense right upper lobe nodule that appears unchanged. The lungs are otherwise clear. There is no pleural effusion or pneumothorax. There are surgical clips in the left axilla. There are degenerative changes of the spine. IMPRESSION: No evidence for acute disease in the chest. Prominent pulmonary tavon questionable for enlarged pulmonary arteries versus lymphadenopathy. Wrist X-Ray 03/16/21 15:12 IMPRESSION: Arthritis. No fracture or dislocation seen. EXAMINATION: Right elbow x-ray CLINICAL INFORMATION: Pain post fall COMPARISON: None. TECHNIQUE: 3 views of the right elbow FINDINGS: There is a comminuted displaced fracture of the olecranon. No other fracture is seen. Joint spaces are normal. There is an elbow joint effusion. There is soft tissue swelling over the fracture. IMPRESSION: Comminuted displaced fracture of the olecranon. EXAMINATION: Right shoulder x-ray CLINICAL INFORMATION: Pain post fall COMPARISON: None. TECHNIQUE: 3 views of the right shoulder FINDINGS: Bone alignment is normal. No fracture or dislocation is seen. The glenohumeral joint is normal. There is arthritis at the acromioclavicular joint. Soft tissues are unremarkable. IMPRESSION: Arthritis at the acromioclavicular joint. EXAMINATION: Chest x-ray CLINICAL INFORMATION: Pain post fall COMPARISON: Previous chest x-ray August 2016 TECHNIQUE: One view of the chest FINDINGS: The cardiac silhouette is slightly enlarged. Thoracic aorta is tortuous. The pulmonary tavon appear prominent. There is a new right subclavian dual chamber pacemaker. There is a small dense right upper lobe nodule that appears unchanged. The lungs are otherwise clear. There is no pleural effusion or pneumothorax. There are surgical clips in the left axilla. There are degenerative changes of the spine. IMPRESSION: No evidence for acute disease in the chest. Prominent pulmonary tavon questionable for enlarged pulmonary arteries versus lymphadenopathy. Chest X-Ray 03/16/21 15:13 IMPRESSION: Arthritis. No fracture or dislocation seen. EXAMINATION: Right elbow x-ray CLINICAL INFORMATION: Pain post fall COMPARISON: None. TECHNIQUE: 3 views of the right elbow FINDINGS: There is a comminuted displaced fracture of the olecranon. No other fracture is seen. Joint spaces are normal. There is an elbow joint effusion. There is soft tissue swelling over the fracture. IMPRESSION: Comminuted displaced fracture of the olecranon. EXAMINATION: Right shoulder x-ray CLINICAL INFORMATION: Pain post fall COMPARISON: None. TECHNIQUE: 3 views of the right shoulder FINDINGS: Bone alignment is normal. No fracture or dislocation is seen. The glenohumeral joint is normal. There is arthritis at the acromioclavicular joint. Soft tissues are unremarkable. IMPRESSION: Arthritis at the acromioclavicular joint. EXAMINATION: Chest x-ray CLINICAL INFORMATION: Pain post fall COMPARISON: Previous chest x-ray August 2016 TECHNIQUE: One view of the chest FINDINGS: The cardiac silhouette is slightly enlarged. Thoracic aorta is tortuous. The pulmonary tavon appear prominent. There is a new right subclavian dual chamber pacemaker. There is a small dense right upper lobe nodule that appears unchanged. The lungs are otherwise clear. There is no pleural effusion or pneumothorax. There are surgical clips in the left axilla. There are degenerative changes of the spine. IMPRESSION: No evidence for acute disease in the chest. Prominent pulmonary tavon questionable for enlarged pulmonary arteries versus lymphadenopathy. Mental Status Exam Mental Status Exam Narrative: Patient was resting in bed comfortably, fully alert and oriented x4 during encounter. Appropriate grooming, wearing hospital garb. Right arm splinted due to elbow fracture. Patient Appearance: Well Grooomed and Appropriate Patient Orientation: Person, Place, Time and Situation Level of Consciousness: Appropriate and Alert Patient Behavior: Appropriate, Cooperative, Anxious and Good Eye Contact Mood Description: Appropriate and Anxious ( my mind is racing . ) Speech Pattern: Clear and No Speech (Patient currently fully articulate, however has had periods of time recently where he in mute. ) Memory Description: Recent Impaired and Working Impaired Hallucinations: None Delusions: Not Present Thought Process: Intact, Goal Oriented and Confusion (confusion at times reported, however patient fully alert and oriented during encounter.) Thought Content: positive for Flight of Ideas (at times) and positive for Racing Depressive Symptoms: Increased Anxiety, Insomnia and Difficulty Sleeping Abnormal Motor Activity Signs and Symptoms: Agitation (Patient appears to alternate between fully alert and oriented, calm cooperative, and agitation, almost catatonic like behaviors.) Judgement: Fair Medications Medications Current Medications Alendronate Sodium (Alendronate Sodium 70 Mg Tablet) 70 mg PO SA [facility] Atorvastatin Calcium (Atorvastatin Calcium 80 Mg Tablet) 80 mg PO DAILY [facility] Last Admin: 03/17/21 10:06 Dose: 80 mg Documented by: Bupropion HCl (Bupropion Hcl Xl 300 Mg Tab.Er.24h) 300 mg PO DAILY [facility] Last Admin: 03/17/21 10:06 Dose: 300 mg Documented by: Finasteride (Finasteride 5 Mg Tablet) 5 mg PO DAILY [facility] Last Admin: 03/17/21 10:03 Dose: 5 mg Documented by: Isosorbide Mononitrate (Isosorbide Mononitrate 60 Mg Tab.Er.24h) 60 mg PO DAILY [facility]; Protocol Last Admin: 03/17/21 10:06 Dose: 60 mg Documented by: Lamotrigine (Lamotrigine 25 Mg Tablet) 25 mg PO BID [facility] Last Admin: 03/17/21 10:06 Dose: 25 mg Documented by: Lorazepam (Lorazepam 0.5 Mg Tablet) 0.5 mg PO BID PRN PRN Reason: anxiety Melatonin (Melatonin 3 Mg Tablet) 3 mg PO BEDTIME PRN PRN Reason: insomnia Metformin HCl (Metformin Hcl Er 500 Mg Tab.Er.24h) 500 mg PO DAILY [facility] Last Admin: 03/17/21 10:03 Dose: 500 mg Documented by: Metoprolol Tartrate (Metoprolol Tartrate 25 Mg Tablet) 25 mg PO BID [facility]; Protocol Last Admin: 03/17/21 10:03 Dose: 25 mg Documented by: Non-Formulary Medication (Bimatoprost) 1 drop EYE-BOTH BEDTIME [facility] Olanzapine (Olanzapine 2.5 Mg Tablet) 2.5 mg PO BEDTIME [facility] Omeprazole (Omeprazole 20 Mg Capsule.) 20 mg PO DAILY@0630 [facility] Last Admin: 03/17/21 10:07 Dose: 20 mg Documented by: Pharmacy Consult (Consult Rx Perform Med Rec) 1 each MISCELLANE ONCE PRN PRN Reason: Consult order Pharmacy Consult (Consult Rx Perform Med Rec) 1 each MISCELLANE ONCE PRN PRN Reason: Consult order Tamsulosin HCl (Tamsulosin Hcl 0.4 Mg Capsule) 0.4 mg PO BEDTIME [facility] Trimethoprim/Sulfamethoxazole (Sulfamethox/Trimeth 800/160 Tablet) 1 tab PO BID [facility] Last Admin: 03/17/21 10:06 Dose: 1 tab Documented by: Allergies Allergies Allergy/AdvReac Type Severity Reaction Status Date / Time metoprolol AdvReac Unknown bradycardia Verified 03/16/21 14:28 timolol AdvReac Unknown low bp Verified 03/16/21 14:28 Assessment & Plan Assessment & Plan (1) Acute confusion: Status: Acute Code(s): R41.0 - Disorientation, unspecified Assessment and Plan: As per daughter, ER community case manager, and care team, patient has been alternating between periods of almost catatonic type behavior, with mutism, inattention, confusion, refusal to take meds, and periods during day of full clarity, insight into bipolar disorder, and requesting help with feeling that he is becoming hypomanic. Due to recent acute mental status changes, cyclical in nature, considering admission with further workup. Patient has had CT of brain 03/16/2021, see notes. (2) Bipolar disorder: Status: Acute Code(s): F31.9 - Bipolar disorder, unspecified Assessment and Plan: Patient has a history of bipolar disorder, with 1st hypomanic episode in 2017, while he was undergoing treatment at [facility] for breast cancer. Patient and daughter report he has not been doing well recently, with his describing feeling ?confused?. Patient has had recent medication changes, including re-initiation of Zyprexa 2.5 mg at bedtime, started 2 days ago. Patient has also recently been started back on Lamictal, currently receiving 25 mg b.i.d.. Patient is followed by Dr. Dick for outpatient psychiatry. His daughter reports that they have been in close contact with his outpatient provider, and that they are considering ECT treatment, as it has been successful for him in the past. Assessment and Plan: Patient and daughter are in agreement regarding inpatient admission to geriatric psychiatric unit here, with further evaluation to be completed regarding recent altered mental status changes and possibility of ECT as an option going forward. 1. Admit to geriatric psych unit, once medically cleared, for further assessment and care. 2. Wellbutrin discontinued, due to possible seizure-like symptoms. 3. Consider obtaining EEG, neuro consult as inpatient due to acute mental status changes. 4. Physical therapy Manuela Pascual) has seen patient this am. She has been notified of pending inpatient admit, and reports they may be able to continue providing physical therapy while inpatient. Recommend contacting them directly. This service writer has been in contact with Solitario Hawkins (CARE team) regarding recommendations. These recommendations have been shared with Earl Kelly, via secure electronic message in system. Thank you for this consultation. If you have any further questions or concerns please do not hesitate to contact us. Greater than 50% of the session was spent on counseling and/or coordination of care
--- NOTE | 2021-03-17 18:30 | MHC.CM.ED ---
Per Desiree Kim psych- pt will be admitted to [facility] psych. Possible bed tomorrow. Desiree will contact PT regarding inhouse PT for pt while hospitalized.
[2021-03-17] MEDS: Tamsulosin HCL 0.4 MG CAPSULE PO (19:20)
[2021-03-17] MEDS: OLANZapine 2.5 MG TABLET PO (19:21)
--- NOTE | 2021-03-17 23:19 | PC.NURSE ---
PT ABLE TO STAND AND USE URINAL WHILE STANDING, ASSIST OF ONE FOR SAFETY/FALL RISK.
[2021-03-18] VITALS (10 sets, daily range): BP systolic 137–199; BP diastolic 62–130; PULSE 64–80; RESP 15–18; TEMP 36–36.1; O2SAT 94–96
[2021-03-18] MEDS: LORazepam 0.5 MG TABLET PO (00:24)
--- NOTE | 2021-03-18 00:40 | PC.NURSE ---
DAUGHTER AT BEDSIDE, ASSISTS PT TO BATHROOM IN ROOM 7. PT'S URINE WAS NEGATIVE FOR INFECTION. PT HAS BEEN GETTING UP EVERY HOUR TO VOID. PT'S DAUGHTER REPORRTS HE IS IRRITATED, CAN'T GET COMFORTABLE IN BED. PT GIVEN PRN ATIVAN.
[2021-03-18 06:06] LABS: Glucose, Whole Blood 109 mg/dL (60-115)
--- NOTE | 2021-03-18 06:40 | PC.NURSE ---
PT RESTLESS, DAUGHTER REPORTS THAT HE HAS BEEN OBSESSED WITH USING TE BATHROOM, TAKING PANTS ON AND OFF AND WILL NOT LEAVE THE SLING ON RIGHT ARM.
[2021-03-18] MEDS: Omeprazole 20 MG CAPSULE.DR PO (07:04)
[2021-03-18] MEDS: OLANZapine 5 MG TABLET PO (07:04)
[2021-03-18 07:15] LABS: Glucose, Whole Blood 102 mg/dL (60-115)
--- NOTE | 2021-03-18 08:23 | PC.NURSE ---
pt is sound asleep at this time, respirations even and unlabored, pt's daughter at bedside, according to the daughter pt ate all of his breakfast. daughter requested that this rn does not wake the pt for his morning medications pt has not slept well since his arrival to the ed.
--- NOTE | 2021-03-18 11:03 | PC.NURSE ---
report given vinod ortega at s1
[2021-03-18] MEDS: Atorvastatin Calcium 80 MG TABLET PO (14:46)
[2021-03-18] MEDS: Metoprolol Tartrate 25 MG TABLET PO ×2 (14:46→19:58)
[2021-03-18] MEDS: lamoTRIgine 25 MG TABLET PO ×2 (14:46→19:59)
[2021-03-18] MEDS: Finasteride 5 MG TABLET PO (14:52)
--- NOTE | 2021-03-18 15:59 | P.HPPS_ITS ---
HPI Chief Complaint: Depression ? OD Sub abuse Sources of Information: patient interviewed HPI Subjective Notes: Conditional Voluntary Narrative: The patient is a 80-year-old male, , father 15 adult children, retired, living with his family with good social support with a past history of bipolar disorder diagnosed after treatment and then a doe for a cancer. The patient was brought to the facility after he fell and on the emergency room his family reported that he has not been sleeping, the patient has presented also with racing thoughts, poor sleep, irritability and poor attention span. He was assessed by the care team and referring to this facility for psychiatric stabilization. There is no reported he was poorly compliant with his treatment. On interview the patient denies psychotic symptoms but he admitted racing thoughts, flight of ideas and increased anxiety, with inability to focus he was able to contract for safety, he denies suicidal or homicidal ideation he was willing to take medications here. Past Psychiatric History: Diagnosed with bipolar disorder, 1st hypomanic episode 2016. IPLOC at [facility] in either 2018 or 2019, related to intrusive thoughts of a knife, and hurting his . Was IPLOC on M5 here in fall 2018, received ECT. Current psychiatrist Dr. Dick at [facility]. Medical Evaluation Reviewed: Yes [facility] Medical History CAD (coronary artery disease) Cardiac pacemaker in situ Diabetes History of left breast cancer HTN (hypertension) Hyperlipidemia Sick sinus syndrome Surgical History History of permanent cardiac pacemaker placement Hx of CABG Hx of cataract surgery Hx of mastectomy Family History: Mother diagnosed with bipolar disorder after half-way, he was hospitalized in [place]. received ECT 20 years ago, has been stable since. Social History: Retired. Lives with . Has 7 daughter, 8 sons. Family is supportive. Trauma History: None reported. Diagnostics Vital Signs (24Hr): Vital Signs - 24 hr 03/17/21 16:10 03/17/21 20:36 03/18/21 06:38 Temperature 98.5 F 98.7 F Pulse Rate 55 56 80 Respiratory Rate 20 20 16 Blood Pressure 120/53 L 137/72 182/102 H Pulse Oximetry 92 94 94 03/18/21 11:04 03/18/21 12:51 03/18/21 12:56 Temperature 96.8 F Pulse Rate 66 78 Respiratory Rate 15 18 Blood Pressure 137/62 169/108 H 167/103 H Pulse Oximetry 95 96 03/18/21 13:50 03/18/21 14:46 03/18/21 14:55 Temperature Pulse Rate 75 75 Respiratory Rate Blood Pressure 177/130 H 186/93 H 186/93 H Pulse Oximetry Body Mass Index 25.7 Labs Results: 03/16/21 19:42 03/16/21 16:39 Labs: Laboratory Results - last 48 hr 03/16/21 03/16/21 03/16/21 16:05 16:39 16:59 WBC RBC Hgb Hct MCV MCH MCHC RDW Plt Count MPV Immature Gran % (Auto) Neut % (Auto) Lymph % (Auto) [place] % (Auto) Eos % (Auto) Baso % (Auto) Lymph # (Auto) [place] # (Auto) Eos # (Auto) Baso # (Auto) Abs Immat Gran (auto) Absolute Neuts (auto) Absolute Nucleated RBC Nucleated RBC % (auto) VBG pH VBG pCO2 VBG pO2 VBG HCO3 VBG O2 Saturation VBG Base Excess Sodium 139 Potassium 4.7 Chloride 108 Carbon Dioxide 21 L Anion Gap 15 BUN 18 H Creatinine 1.13 Estim Creat Clear Calc 46.8 Estimated GFR > 60 POC Glucose Random Glucose 103 Lactic Acid Calcium 10.0 Magnesium 2.0 Total Bilirubin 1.1 H Direct Bilirubin 0.5 AST 32 ALT 34 Alkaline Phosphatase 81 Ammonia 27 Total Creatine Kinase 253 H Troponin I High Sens Total Protein 6.4 L Albumin 4.0 TSH Urine Color Urine Appearance Urine pH Ur Specific Sunol Urine Protein Urine Glucose (UA) Urine Ketones Urine Blood Urine Nitrite Ur Leukocyte Esterase Urine Opiates Screen Urine Fentanyl Screen Acetaminophen < 1 Ur Barbiturates Screen Ur Phencyclidine Scrn Ur Amphetamines Screen U Benzodiazepines Scrn Urine Cocaine Screen U Marijuana (THC) Screen Ethyl Alcohol COVID-19 (ANDRE) Negative COVID-19 Clin Com See Note 03/16/21 03/16/21 03/16/21 16:59 16:59 16:59 WBC RBC Hgb Hct MCV MCH MCHC RDW Plt Count MPV Immature Gran % (Auto) Neut % (Auto) Lymph % (Auto) [place] % (Auto) Eos % (Auto) Baso % (Auto) Lymph # (Auto) [place] # (Auto) Eos # (Auto) Baso # (Auto) Abs Immat Gran (auto) Absolute Neuts (auto) Absolute Nucleated RBC Nucleated RBC % (auto) VBG pH VBG pCO2 VBG pO2 VBG HCO3 VBG O2 Saturation VBG Base Excess Sodium Potassium Chloride Carbon Dioxide Anion Gap BUN Creatinine Estim Creat Clear Calc Estimated GFR POC Glucose Random Glucose Lactic Acid 2.3 H* Calcium Magnesium Total Bilirubin Direct Bilirubin AST ALT Alkaline Phosphatase Ammonia Total Creatine Kinase Troponin I High Sens 10.1 Total Protein Albumin TSH 1.77 Urine Color Urine Appearance Urine pH Ur Specific Sunol Urine Protein Urine Glucose (UA) Urine Ketones Urine Blood Urine Nitrite Ur Leukocyte Esterase Urine Opiates Screen Urine Fentanyl Screen Acetaminophen Ur Barbiturates Screen Ur Phencyclidine Scrn Ur Amphetamines Screen U Benzodiazepines Scrn Urine Cocaine Screen U Marijuana (THC) Screen Ethyl Alcohol COVID-19 (ANDRE) COVID-19 [employer] 03/16/21 03/16/21 03/16/21 16:59 17:05 17:29 WBC RBC Hgb Hct MCV MCH MCHC RDW Plt Count MPV Immature Gran % (Auto) Neut % (Auto) Lymph % (Auto) [place] % (Auto) Eos % (Auto) Baso % (Auto) Lymph # (Auto) [place] # (Auto) Eos # (Auto) Baso # (Auto) Abs Immat Gran (auto) Absolute Neuts (auto) Absolute Nucleated RBC Nucleated RBC % (auto) VBG pH 7.36 VBG pCO2 37 VBG pO2 47 VBG HCO3 21 L VBG O2 Saturation 69.0 VBG Base Excess -3.1 Sodium Potassium Chloride Carbon Dioxide Anion Gap BUN Creatinine Estim Creat Clear Calc Estimated GFR POC Glucose Random Glucose Lactic Acid Calcium Magnesium Total Bilirubin Direct Bilirubin AST ALT Alkaline Phosphatase Ammonia Total Creatine Kinase Troponin I High Sens Total Protein Albumin TSH Urine Color YELLOW Urine Appearance CLEAR Urine pH 6.0 Ur Specific Sunol >= 1.030 H Urine Protein NEG Urine Glucose (UA) NEG Urine Ketones 5 Urine Blood NEG Urine Nitrite NEG Ur Leukocyte Esterase NEG Urine Opiates Screen Urine Fentanyl Screen Acetaminophen Ur Barbiturates Screen Ur Phencyclidine Scrn Ur Amphetamines Screen U Benzodiazepines Scrn Urine Cocaine Screen U Marijuana (THC) Screen Ethyl Alcohol < 10 COVID-19 (ANDRE) COVID-19 [employer] 03/16/21 03/16/21 03/16/21 17:29 17:37 19:10 WBC RBC Hgb Hct MCV MCH MCHC RDW Plt Count MPV Immature Gran % (Auto) Neut % (Auto) Lymph % (Auto) [place] % (Auto) Eos % (Auto) Baso % (Auto) Lymph # (Auto) [place] # (Auto) Eos # (Auto) Baso # (Auto) Abs Immat Gran (auto) Absolute Neuts (auto) Absolute Nucleated RBC Nucleated RBC % (auto) VBG pH VBG pCO2 VBG pO2 VBG HCO3 VBG O2 Saturation VBG Base Excess Sodium Potassium Chloride Carbon Dioxide Anion Gap BUN Creatinine Estim Creat Clear Calc Estimated GFR POC Glucose 94 Random Glucose Lactic Acid 1.5 Calcium Magnesium Total Bilirubin Direct Bilirubin AST ALT Alkaline Phosphatase Ammonia Total Creatine Kinase Troponin I High Sens Total Protein Albumin TSH Urine Color Urine Appearance Urine pH Ur Specific Sunol Urine Protein Urine Glucose (UA) Urine Ketones Urine Blood Urine Nitrite Ur Leukocyte Esterase Urine Opiates Screen Not Detected Urine Fentanyl Screen Not Detected Acetaminophen Ur Barbiturates Screen Not Detected Ur Phencyclidine Scrn Not Detected Ur Amphetamines Screen Not Detected U Benzodiazepines Scrn Not Detected Urine Cocaine Screen Not Detected U Marijuana (THC) Screen Not Detected Ethyl Alcohol COVID-19 (ANDRE) COVID-19 Clin Com 03/16/21 03/17/21 03/17/21 19:42 00:53 02:46 WBC 8.7 RBC 4.48 L Hgb 13.6 L Hct 40.5 L MCV 90.4 MCH 30.4 MCHC 33.6 RDW 13.8 Plt Count 205 MPV 9.0 L Immature Gran % (Auto) 0.3 Neut % (Auto) 83.2 H Lymph % (Auto) 7.5 L [place] % (Auto) 6.9 Eos % (Auto) 1.6 Baso % (Auto) 0.5 Lymph # (Auto) 0.7 L [place] # (Auto) 0.6 Eos # (Auto) 0.1 Baso # (Auto) 0.0 Abs Immat Gran (auto) 0.03 Absolute Neuts (auto) 7.2 Absolute Nucleated RBC 0.000 Nucleated RBC % (auto) 0.0 VBG pH VBG pCO2 VBG pO2 VBG HCO3 VBG O2 Saturation VBG Base Excess Sodium Potassium Chloride Carbon Dioxide Anion Gap BUN Creatinine Estim Creat Clear Calc Estimated GFR POC Glucose 66 Random Glucose Lactic Acid Calcium Magnesium Total Bilirubin Direct Bilirubin AST ALT Alkaline Phosphatase Ammonia Total Creatine Kinase Troponin I High Sens 10.7 Total Protein Albumin TSH Urine Color Urine Appearance Urine pH Ur Specific Sunol Urine Protein Urine Glucose (UA) Urine Ketones Urine Blood Urine Nitrite Ur Leukocyte Esterase Urine Opiates Screen Urine Fentanyl Screen Acetaminophen Ur Barbiturates Screen Ur Phencyclidine Scrn Ur Amphetamines Screen U Benzodiazepines Scrn Urine Cocaine Screen U Marijuana (THC) Screen Ethyl Alcohol COVID-19 (ANDRE) COVID-19 Clin Com 03/17/21 03/17/21 03/18/21 03:46 06:27 06:02 WBC RBC Hgb Hct MCV MCH MCHC RDW Plt Count MPV Immature Gran % (Auto) Neut % (Auto) Lymph % (Auto) [place] % (Auto) Eos % (Auto) Baso % (Auto) Lymph # (Auto) [place] # (Auto) Eos # (Auto) Baso # (Auto) Abs Immat Gran (auto) Absolute Neuts (auto) Absolute Nucleated RBC Nucleated RBC % (auto) VBG pH VBG pCO2 VBG pO2 VBG HCO3 VBG O2 Saturation VBG Base Excess Sodium Potassium Chloride Carbon Dioxide Anion Gap BUN Creatinine Estim Creat Clear Calc Estimated GFR POC Glucose 75 122 H 109 Random Glucose Lactic Acid Calcium Magnesium Total Bilirubin Direct Bilirubin AST ALT Alkaline Phosphatase Ammonia Total Creatine Kinase Troponin I High Sens Total Protein Albumin TSH Urine Color Urine Appearance Urine pH Ur Specific Sunol Urine Protein Urine Glucose (UA) Urine Ketones Urine Blood Urine Nitrite Ur Leukocyte Esterase Urine Opiates Screen Urine Fentanyl Screen Acetaminophen Ur Barbiturates Screen Ur Phencyclidine Scrn Ur Amphetamines Screen U Benzodiazepines Scrn Urine Cocaine Screen U Marijuana (THC) Screen Ethyl Alcohol COVID-19 (ANDRE) COVID-19 Clin Com 03/18/21 07:10 WBC RBC Hgb Hct MCV MCH MCHC RDW Plt Count MPV Immature Gran % (Auto) Neut % (Auto) Lymph % (Auto) [place] % (Auto) Eos % (Auto) Baso % (Auto) Lymph # (Auto) [place] # (Auto) Eos # (Auto) Baso # (Auto) Abs Immat Gran (auto) Absolute Neuts (auto) Absolute Nucleated RBC Nucleated RBC % (auto) VBG pH VBG pCO2 VBG pO2 VBG HCO3 VBG O2 Saturation VBG Base Excess Sodium Potassium Chloride Carbon Dioxide Anion Gap BUN Creatinine Estim Creat Clear Calc Estimated GFR POC Glucose 102 Random Glucose Lactic Acid Calcium Magnesium Total Bilirubin Direct Bilirubin AST ALT Alkaline Phosphatase Ammonia Total Creatine Kinase Troponin I High Sens Total Protein Albumin TSH Urine Color Urine Appearance Urine pH Ur Specific Sunol Urine Protein Urine Glucose (UA) Urine Ketones Urine Blood Urine Nitrite Ur Leukocyte Esterase Urine Opiates Screen Urine Fentanyl Screen Acetaminophen Ur Barbiturates Screen Ur Phencyclidine Scrn Ur Amphetamines Screen U Benzodiazepines Scrn Urine Cocaine Screen U Marijuana (THC) Screen Ethyl Alcohol COVID-19 (ANDRE) COVID-19 Clin Com Imaging Radiology Impressions: ITS Impressions Cervical Spine CT 03/16/21 15:12 IMPRESSION: 1. No acute intracranial pathology. 2. No CT evidence of acute cervical spine fracture or traumatic subluxation 3. Irregular 1.5 cm lesion right upper lobe. This is chronic unchanged since CAT scan of December 03, 2019. Elbow X-Ray 03/16/21 15:12 IMPRESSION: Arthritis. No fracture or dislocation seen. EXAMINATION: Right elbow x-ray CLINICAL INFORMATION: Pain post fall COMPARISON: None. TECHNIQUE: 3 views of the right elbow FINDINGS: There is a comminuted displaced fracture of the olecranon. No other fracture is seen. Joint spaces are normal. There is an elbow joint effusion. There is soft tissue swelling over the fracture. IMPRESSION: Comminuted displaced fracture of the olecranon. EXAMINATION: Right shoulder x-ray CLINICAL INFORMATION: Pain post fall COMPARISON: None. TECHNIQUE: 3 views of the right shoulder FINDINGS: Bone alignment is normal. No fracture or dislocation is seen. The glenohumeral joint is normal. There is arthritis at the acromioclavicular joint. Soft tissues are unremarkable. IMPRESSION: Arthritis at the acromioclavicular joint. EXAMINATION: Chest x-ray CLINICAL INFORMATION: Pain post fall COMPARISON: Previous chest x-ray August 2016 TECHNIQUE: One view of the chest FINDINGS: The cardiac silhouette is slightly enlarged. Thoracic aorta is tortuous. The pulmonary tvaon appear prominent. There is a new right subclavian dual chamber pacemaker. There is a small dense right upper lobe nodule that appears unchanged. The lungs are otherwise clear. There is no pleural effusion or pneumothorax. There are surgical clips in the left axilla. There are degenerative changes of the spine. IMPRESSION: No evidence for acute disease in the chest. Prominent pulmonary tavon questionable for enlarged pulmonary arteries versus lymphadenopathy. Head CT 03/16/21 15:12 IMPRESSION: 1. No acute intracranial pathology. 2. No CT evidence of acute cervical spine fracture or traumatic subluxation 3. Irregular 1.5 cm lesion right upper lobe. This is chronic unchanged since CAT scan of December 03, 2019. Shoulder X-Ray 03/16/21 15:12 IMPRESSION: Arthritis. No fracture or dislocation seen. EXAMINATION: Right elbow x-ray CLINICAL INFORMATION: Pain post fall COMPARISON: None. TECHNIQUE: 3 views of the right elbow FINDINGS: There is a comminuted displaced fracture of the olecranon. No other fracture is seen. Joint spaces are normal. There is an elbow joint effusion. There is soft tissue swelling over the fracture. IMPRESSION: Comminuted displaced fracture of the olecranon. EXAMINATION: Right shoulder x-ray CLINICAL INFORMATION: Pain post fall COMPARISON: None. TECHNIQUE: 3 views of the right shoulder FINDINGS: Bone alignment is normal. No fracture or dislocation is seen. The glenohumeral joint is normal. There is arthritis at the acromioclavicular joint. Soft tissues are unremarkable. IMPRESSION: Arthritis at the acromioclavicular joint. EXAMINATION: Chest x-ray CLINICAL INFORMATION: Pain post fall COMPARISON: Previous chest x-ray August 2016 TECHNIQUE: One view of the chest FINDINGS: The cardiac silhouette is slightly enlarged. Thoracic aorta is tortuous. The pulmonary tavon appear prominent. There is a new right subclavian dual chamber pacemaker. There is a small dense right upper lobe nodule that appears unchanged. The lungs are otherwise clear. There is no pleural effusion or pneumothorax. There are surgical clips in the left axilla. There are degenerative changes of the spine. IMPRESSION: No evidence for acute disease in the chest. Prominent pulmonary tavon questionable for enlarged pulmonary arteries versus lymphadenopathy. Wrist X-Ray 03/16/21 15:12 IMPRESSION: Arthritis. No fracture or dislocation seen. EXAMINATION: Right elbow x-ray CLINICAL INFORMATION: Pain post fall COMPARISON: None. TECHNIQUE: 3 views of the right elbow FINDINGS: There is a comminuted displaced fracture of the olecranon. No other fracture is seen. Joint spaces are normal. There is an elbow joint effusion. There is soft tissue swelling over the fracture. IMPRESSION: Comminuted displaced fracture of the olecranon. EXAMINATION: Right shoulder x-ray CLINICAL INFORMATION: Pain post fall COMPARISON: None. TECHNIQUE: 3 views of the right shoulder FINDINGS: Bone alignment is normal. No fracture or dislocation is seen. The glenohumeral joint is normal. There is arthritis at the acromioclavicular joint. Soft tissues are unremarkable. IMPRESSION: Arthritis at the acromioclavicular joint. EXAMINATION: Chest x-ray CLINICAL INFORMATION: Pain post fall COMPARISON: Previous chest x-ray August 2016 TECHNIQUE: One view of the chest FINDINGS: The cardiac silhouette is slightly enlarged. Thoracic aorta is tortuous. The pulmonary tavon appear prominent. There is a new right subclavian dual chamber pacemaker. There is a small dense right upper lobe nodule that appears unchanged. The lungs are otherwise clear. There is no pleural effusion or pneumothorax. There are surgical clips in the left axilla. There are degenerative changes of the spine. IMPRESSION: No evidence for acute disease in the chest. Prominent pulmonary tavon questionable for enlarged pulmonary arteries versus lymphadenopathy. Chest X-Ray 03/16/21 15:13 IMPRESSION: Arthritis. No fracture or dislocation seen. EXAMINATION: Right elbow x-ray CLINICAL INFORMATION: Pain post fall COMPARISON: None. TECHNIQUE: 3 views of the right elbow FINDINGS: There is a comminuted displaced fracture of the olecranon. No other fracture is seen. Joint spaces are normal. There is an elbow joint effusion. There is soft tissue swelling over the fracture. IMPRESSION: Comminuted displaced fracture of the olecranon. EXAMINATION: Right shoulder x-ray CLINICAL INFORMATION: Pain post fall COMPARISON: None. TECHNIQUE: 3 views of the right shoulder FINDINGS: Bone alignment is normal. No fracture or dislocation is seen. The glenohumeral joint is normal. There is arthritis at the acromioclavicular joint. Soft tissues are unremarkable. IMPRESSION: Arthritis at the acromioclavicular joint. EXAMINATION: Chest x-ray CLINICAL INFORMATION: Pain post fall COMPARISON: Previous chest x-ray August 2016 TECHNIQUE: One view of the chest FINDINGS: The cardiac silhouette is slightly enlarged. Thoracic aorta is tortuous. The pulmonary tavon appear prominent. There is a new right subclavian dual chamber pacemaker. There is a small dense right upper lobe nodule that appears unchanged. The lungs are otherwise clear. There is no pleural effusion or pneumothorax. There are surgical clips in the left axilla. There are degenerative changes of the spine. IMPRESSION: No evidence for acute disease in the chest. Prominent pulmonary tavon questionable for enlarged pulmonary arteries versus lymphadenopathy. Meds/Allergies Meds Home Medications Acetaminophen (Acetaminophen 325 Mg Tablet) 650 mg PO Q6H PRN PRN Reason: Headache/Pain Mild Scale (1-3) Acetaminophen (Acetaminophen 325 Mg Tablet) 650 mg PO Q6H PRN PRN Reason: Headache/Pain Mild Scale (1-3) Al Hydroxide/Mg Hydroxide (Magnesium Hydrox/Alum Hydrox 30 Ml Oral.Susp) 30 ml PO Q6H PRN PRN Reason: Heartburn/Nausea Al Hydroxide/Mg Hydroxide (Magnesium Hydrox/Alum Hydrox 30 Ml Oral.Susp) 30 ml PO Q6H PRN PRN Reason: Heartburn/Nausea Alendronate Sodium (Alendronate Sodium 70 Mg Tablet) 70 mg PO [facility] Atorvastatin Calcium (Atorvastatin Calcium 80 Mg Tablet) 80 mg PO DAILY [facility] Last Admin: 03/18/21 14:46 Dose: 80 mg Documented by: Finasteride (Finasteride 5 Mg Tablet) 5 mg PO DAILY [facility] Last Admin: 03/18/21 14:52 Dose: 5 mg Documented by: Hydroxyzine HCl (Hydroxyzine Hcl 25 Mg Tablet) 25 mg PO Q6H PRN PRN Reason: Anxiety Isosorbide Mononitrate (Isosorbide Mononitrate 60 Mg Tab.Er.24h) 60 mg PO DAILY [facility]; Protocol Last Admin: 03/17/21 10:06 Dose: 60 mg Documented by: Lamotrigine (Lamotrigine 25 Mg Tablet) 25 mg PO BID [facility] Last Admin: 03/18/21 14:46 Dose: 25 mg Documented by: Lorazepam (Lorazepam 0.5 Mg Tablet) 0.5 mg PO BID PRN PRN Reason: anxiety Last Admin: 03/18/21 00:24 Dose: 0.5 mg Documented by: Magnesium Hydroxide (Milk Of Magnesia 30 Ml Oral.Susp) 30 ml PO DAILY PRN PRN Reason: Constipation Magnesium Hydroxide (Milk Of Magnesia 30 Ml Oral.Susp) 30 ml PO DAILY PRN PRN Reason: Constipation Melatonin (Melatonin 3 Mg Tablet) 3 mg PO BEDTIME PRN PRN Reason: insomnia Metformin HCl (Metformin Hcl Er 500 Mg Tab.Er.24h) 500 mg PO DAILY [facility] Last Admin: 03/17/21 10:03 Dose: 500 mg Documented by: Metoprolol Tartrate (Metoprolol Tartrate 25 Mg Tablet) 25 mg PO BID [facility]; Protocol Last Admin: 03/18/21 14:46 Dose: 25 mg Documented by: Non-Formulary Medication (Bimatoprost) 1 drop EYE-BOTH BEDTIME [facility] Olanzapine (Olanzapine 2.5 Mg Tablet) 2.5 mg PO BEDTIME [facility] Last Admin: 03/17/21 19:21 Dose: 2.5 mg Documented by: Omeprazole (Omeprazole 20 Mg Capsule.Dr) 20 mg PO DAILY@0630 [facility] Last Admin: 03/18/21 07:04 Dose: 20 mg Documented by: Pharmacy Consult (Consult Rx Perform Med Rec) 1 each MISCELLANE ONCE PRN PRN Reason: Consult order Pharmacy Consult (Consult Rx Perform Med Rec) 1 each MISCELLANE ONCE PRN PRN Reason: Consult order Tamsulosin HCl (Tamsulosin Hcl 0.4 Mg Capsule) 0.4 mg PO BEDTIME [facility] Last Admin: 03/17/21 19:20 Dose: 0.4 mg Documented by: Trazodone HCl (Trazodone Hcl 50 Mg Tablet) 50 mg PO BEDTIME PRN PRN Reason: Insomnia Trazodone HCl (Trazodone Hcl 50 Mg Tablet) 50 mg PO BEDTIME PRN PRN Reason: Insomnia Trimethoprim/Sulfamethoxazole (Sulfamethox/Trimeth 800/160 Tablet) 1 tab PO BID [facility] Last Admin: 03/17/21 19:20 Dose: 1 tab Documented by: Allergies Allergies Allergy/AdvReac Type Severity Reaction Status Date / Time metoprolol AdvReac Unknown bradycardia Verified 03/16/21 14:28 timolol AdvReac Unknown low bp Verified 03/16/21 14:28 Mental Status Exam Mental Status Exam Patient Appearance: Well Grooomed Patient Orientation: Person Level of Consciousness: Appropriate and Disoriented Patient Behavior: Cooperative Mood Description: Labile Affect Description: Constricted Patient Cognition Impaired: Yes Ability to Follow Directions: Good Speech Pattern: Soft-Spoken Delusions: Not Present Thought Process: Racing and Distracted Thought Content: positive for Loose Associations and positive for Thought Blocking Judgement: Fair Assessment & Plan Assessment & Plan (1) Bipolar disorder: Status: Acute Code(s): F31.9 - Bipolar disorder, unspecified (2) Elbow fracture, right: Status: Acute Qualifiers: Encounter type: initial encounter Fracture type: closed Qualified Code(s): S42.401A - Unspecified fracture of lower end of right humerus, initial encounter for closed fracture Code(s): S42.401A - Unspecified fracture of lower end of right humerus, initial encounter for closed fracture Assessment and Plan: The patient is an elderly male with a history of bipolar disorder with good social support referred to the facility for exacerbation of mood symptoms in the context of poor compliance. Plan 1. Continue Zyprexa 2.5 mg p.o. q.h.s. that has been effective as per his outpatient psychiatrist. 2. Gather collateral information Reason for continued inpatient stay Substantial Risk for: inability to function, rapid decompensation and med/psych decompensation
--- NOTE | 2021-03-18 17:14 | PC.ADMIT ---
Patient is a 80 year old male admitted to S1 from [facility] ED with a diagnosis of F31.9 - unspecified Bi polar and related d/o with anxious distress, severe. CV was signed by patient in [facility]. Patient is alert and oriented x4, verbal, responds to staff and appears occasionally confused. Patient was observed pacing the hallways and endorses feelings of anxiety and rates depression 10/10. patient denies SI/HI, AVH. Patient reports experiencing urinary frequency at baseline, patient's family reports patient waking up 10 to 15 times at night to use the bathroom. Patient trialed Uroxatral 01/27/21 through 02/08/21, family stopped as they felt patient became more confused. He was brought into [facility] from home by family who reports patient has been confused, refusing medication, catatonic, anxious and fall at home that resulted to fracture of his right elbow. patient reported difficulty falling asleep and poor nutrition. Upon arrival to unit, patient's blood pressure 169/108 going up to 177/130. ED staff report patient did not have morning meds as he was sleeping. S1 staff administered morning medications during admission process. Patient has previous documented diagnosis of bipolar disorder resulting to two hospitalizations; once in 2018 at [facility] and another at [facility] in 2019 where he received ECT treatments that ended in August 2019 due to the pandemic. In 2017, he was diagnosed with breast cancer and received radiation treatment, he developed depression and was later diagnosed with Bipolar d/o. While at [facility], he received treatment fro his depression from the psychiatrist there.
[2021-03-18] MEDS: Isosorbide Mononitrate 60 MG TAB.ER.24H PO (18:28)
[2021-03-18] MEDS: Sulfamethox/Trimeth 800/160 TABLET 1 TAB PO ×2 (18:30→19:59)
[2021-03-18] MEDS: metFORMIN HCl ER 500 MG TAB.ER.24H PO (18:30)
[2021-03-18] MEDS: Tamsulosin HCL 0.4 MG CAPSULE PO (19:58)
[2021-03-18] MEDS: OLANZapine 2.5 MG TABLET PO (19:59)
[2021-03-19] MEDS: Omeprazole 20 MG CAPSULE.DR PO (05:54)
[2021-03-19] MEDS: metFORMIN HCl ER 500 MG TAB.ER.24H PO (09:17)
[2021-03-19] MEDS: Metoprolol Tartrate 25 MG TABLET PO ×2 (09:18→21:25)
[2021-03-19] MEDS: lamoTRIgine 25 MG TABLET PO ×2 (09:18→21:25)
[2021-03-19] MEDS: Finasteride 5 MG TABLET PO (09:18)
[2021-03-19] MEDS: Isosorbide Mononitrate 60 MG TAB.ER.24H PO (09:18)
[2021-03-19] MEDS: Atorvastatin Calcium 80 MG TABLET PO (09:18)
[2021-03-19] MEDS: Sulfamethox/Trimeth 800/160 TABLET 1 TAB PO ×2 (10:18→21:24)
--- NOTE | 2021-03-19 13:00 | MHC.CLN ---
NUTRITION INCREASED KCAL OF DIABETIC DIET TO 2000 KCAL (28 KCAL/KG ABW).
--- NOTE | 2021-03-19 13:59 | P.PNPSI_ITS ---
Subjective Subjective Date of Service: 03/19/21 Reason For Visit: Depression ? OD Sub abuse Subjective Notes: Conditional Voluntary Interim History: The nursing staff reported that his blood pressure has been a little high but controlled. He looks confused at times and he was seen self dialogue in. The social welfare research worker has contacted his reported that his sympt oms started after he was treated for cancer at [facility] on September 2016 under later on September 2017 he developed manic symptoms. On interview, the patient reported that he slept ?it was a little?. He agreed to increase Zyprexa up to 5 mg p.o. q.h.s. Mental Status Exam Mental Status Exam Patient Appearance: Disheveled Patient Orientation: Person Level of Consciousness: Awake Patient Behavior: Cooperative Mood Description: Constricted Affect Description: Labile Patient Cognition Impaired: Yes Ability to Follow Directions: Good Speech Pattern: Clear Hallucinations: Auditory Delusions: Paranoid Ideation Thought Process: Illogical (Flight of ideas) and Distracted Thought Content: positive for Perseveration and positive for Poverty of Content Judgement: Fair Diagnostics Vital Signs (24Hr): Vital Signs - 24 hr 03/18/21 14:46 03/18/21 14:55 03/18/21 18:03 Temperature 97.0 F Pulse Rate 75 75 64 Respiratory Rate 16 Blood Pressure 186/93 H 186/93 H 184/89 H Pulse Oximetry 96 03/18/21 18:28 03/18/21 19:58 Temperature Pulse Rate 65 65 Respiratory Rate Blood Pressure 184/89 H 199/99 H Pulse Oximetry Body Mass Index 25.7 Labs Results: 03/16/21 19:42 03/16/21 16:39 Labs: Laboratory Results - last 48 hr 03/18/21 03/18/21 06:02 07:10 POC Glucose 109 102 Imaging Radiology Impressions: ITS Impressions Cervical Spine CT 03/16/21 15:12 IMPRESSION: 1. No acute intracranial pathology. 2. No CT evidence of acute cervical spine fracture or traumatic subluxation 3. Irregular 1.5 cm lesion right upper lobe. This is chronic unchanged since CAT scan of December 03, 2019. Elbow X-Ray 03/16/21 15:12 IMPRESSION: Arthritis. No fracture or dislocation seen. EXAMINATION: Right elbow x-ray CLINICAL INFORMATION: Pain post fall COMPARISON: None. TECHNIQUE: 3 views of the right elbow FINDINGS: There is a comminuted displaced fracture of the olecranon. No other fracture is seen. Joint spaces are normal. There is an elbow joint effusion. There is soft tissue swelling over the fracture. IMPRESSION: Comminuted displaced fracture of the olecranon. EXAMINATION: Right shoulder x-ray CLINICAL INFORMATION: Pain post fall COMPARISON: None. TECHNIQUE: 3 views of the right shoulder FINDINGS: Bone alignment is normal. No fracture or dislocation is seen. The glenohumeral joint is normal. There is arthritis at the acromioclavicular joint. Soft tissues are unremarkable. IMPRESSION: Arthritis at the acromioclavicular joint. EXAMINATION: Chest x-ray CLINICAL INFORMATION: Pain post fall COMPARISON: Previous chest x-ray August 2016 TECHNIQUE: One view of the chest FINDINGS: The cardiac silhouette is slightly enlarged. Thoracic aorta is tortuous. The pulmonary tavon appear prominent. There is a new right subclavian dual chamber pacemaker. There is a small dense right upper lobe nodule that appears unchanged. The lungs are otherwise clear. There is no pleural effusion or pneumothorax. There are surgical clips in the left axilla. There are degenerative changes of the spine. IMPRESSION: No evidence for acute disease in the chest. Prominent pulmonary tavon questionable for enlarged pulmonary arteries versus lymphadenopathy. Head CT 03/16/21 15:12 IMPRESSION: 1. No acute intracranial pathology. 2. No CT evidence of acute cervical spine fracture or traumatic subluxation 3. Irregular 1.5 cm lesion right upper lobe. This is chronic unchanged since CAT scan of December 03, 2019. Shoulder X-Ray 03/16/21 15:12 IMPRESSION: Arthritis. No fracture or dislocation seen. EXAMINATION: Right elbow x-ray CLINICAL INFORMATION: Pain post fall COMPARISON: None. TECHNIQUE: 3 views of the right elbow FINDINGS: There is a comminuted displaced fracture of the olecranon. No other fracture is seen. Joint spaces are normal. There is an elbow joint effusion. There is soft tissue swelling over the fracture. IMPRESSION: Comminuted displaced fracture of the olecranon. EXAMINATION: Right shoulder x-ray CLINICAL INFORMATION: Pain post fall COMPARISON: None. TECHNIQUE: 3 views of the right shoulder FINDINGS: Bone alignment is normal. No fracture or dislocation is seen. The glenohumeral joint is normal. There is arthritis at the acromioclavicular joint. Soft tissues are unremarkable. IMPRESSION: Arthritis at the acromioclavicular joint. EXAMINATION: Chest x-ray CLINICAL INFORMATION: Pain post fall COMPARISON: Previous chest x-ray August 2016 TECHNIQUE: One view of the chest FINDINGS: The cardiac silhouette is slightly enlarged. Thoracic aorta is tortuous. The pulmonary tavon appear prominent. There is a new right subclavian dual chamber pacemaker. There is a small dense right upper lobe nodule that appears unchanged. The lungs are otherwise clear. There is no pleural effusion or pneumothorax. There are surgical clips in the left axilla. There are degenerative changes of the spine. IMPRESSION: No evidence for acute disease in the chest. Prominent pulmonary tavon questionable for enlarged pulmonary arteries versus lymphadenopathy. Wrist X-Ray 03/16/21 15:12 IMPRESSION: Arthritis. No fracture or dislocation seen. EXAMINATION: Right elbow x-ray CLINICAL INFORMATION: Pain post fall COMPARISON: None. TECHNIQUE: 3 views of the right elbow FINDINGS: There is a comminuted displaced fracture of the olecranon. No other fracture is seen. Joint spaces are normal. There is an elbow joint effusion. There is soft tissue swelling over the fracture. IMPRESSION: Comminuted displaced fracture of the olecranon. EXAMINATION: Right shoulder x-ray CLINICAL INFORMATION: Pain post fall COMPARISON: None. TECHNIQUE: 3 views of the right shoulder FINDINGS: Bone alignment is normal. No fracture or dislocation is seen. The glenohumeral joint is normal. There is arthritis at the acromioclavicular joint. Soft tissues are unremarkable. IMPRESSION: Arthritis at the acromioclavicular joint. EXAMINATION: Chest x-ray CLINICAL INFORMATION: Pain post fall COMPARISON: Previous chest x-ray August 2016 TECHNIQUE: One view of the chest FINDINGS: The cardiac silhouette is slightly enlarged. Thoracic aorta is tortuous. The pulmonary tavon appear prominent. There is a new right subclavian dual chamber pacemaker. There is a small dense right upper lobe nodule that appears unchanged. The lungs are otherwise clear. There is no pleural effusion or pneumothorax. There are surgical clips in the left axilla. There are degenerative changes of the spine. IMPRESSION: No evidence for acute disease in the chest. Prominent pulmonary tavon questionable for enlarged pulmonary arteries versus lymphadenopathy. Chest X-Ray 03/16/21 15:13 IMPRESSION: Arthritis. No fracture or dislocation seen. EXAMINATION: Right elbow x-ray CLINICAL INFORMATION: Pain post fall COMPARISON: None. TECHNIQUE: 3 views of the right elbow FINDINGS: There is a comminuted displaced fracture of the olecranon. No other fracture is seen. Joint spaces are normal. There is an elbow joint effusion. There is soft tissue swelling over the fracture. IMPRESSION: Comminuted displaced fracture of the olecranon. EXAMINATION: Right shoulder x-ray CLINICAL INFORMATION: Pain post fall COMPARISON: None. TECHNIQUE: 3 views of the right shoulder FINDINGS: Bone alignment is normal. No fracture or dislocation is seen. The glenohumeral joint is normal. There is arthritis at the acromioclavicular joint. Soft tissues are unremarkable. IMPRESSION: Arthritis at the acromioclavicular joint. EXAMINATION: Chest x-ray CLINICAL INFORMATION: Pain post fall COMPARISON: Previous chest x-ray August 2016 TECHNIQUE: One view of the chest FINDINGS: The cardiac silhouette is slightly enlarged. Thoracic aorta is tortuous. The pulmonary tavon appear prominent. There is a new right subclavian dual chamber pacemaker. There is a small dense right upper lobe nodule that appears unchanged. The lungs are otherwise clear. There is no pleural effusion or pneumothorax. There are surgical clips in the left axilla. There are degenerative changes of the spine. IMPRESSION: No evidence for acute disease in the chest. Prominent pulmonary tavon questionable for enlarged pulmonary arteries versus lymphadenopathy. Medications Medications Current Medications Acetaminophen (Acetaminophen 325 Mg Tablet) 650 mg PO Q6H PRN PRN Reason: Headache/Pain Mild Scale (1-3) Acetaminophen (Acetaminophen 325 Mg Tablet) 650 mg PO Q6H PRN PRN Reason: Headache/Pain Mild Scale (1-3) Al Hydroxide/Mg Hydroxide (Magnesium Hydrox/Alum Hydrox 30 Ml Oral.Susp) 30 ml PO Q6H PRN PRN Reason: Heartburn/Nausea Al Hydroxide/Mg Hydroxide (Magnesium Hydrox/Alum Hydrox 30 Ml Oral.Susp) 30 ml PO Q6H PRN PRN Reason: Heartburn/Nausea Alendronate Sodium (Alendronate Sodium 70 Mg Tablet) 70 mg PO [facility] Atorvastatin Calcium (Atorvastatin Calcium 80 Mg Tablet) 80 mg PO DAILY [facility] Last Admin: 03/19/21 09:18 Dose: 80 mg Documented by: Finasteride (Finasteride 5 Mg Tablet) 5 mg PO DAILY [facility] Last Admin: 03/19/21 09:18 Dose: 5 mg Documented by: Hydroxyzine HCl (Hydroxyzine Hcl 25 Mg Tablet) 25 mg PO Q6H PRN PRN Reason: Anxiety Isosorbide Mononitrate (Isosorbide Mononitrate 60 Mg Tab.Er.24h) 60 mg PO DAILY [facility]; Protocol Last Admin: 03/19/21 09:18 Dose: 60 mg Documented by: Lamotrigine (Lamotrigine 25 Mg Tablet) 25 mg PO BID [facility] Last Admin: 03/19/21 09:18 Dose: 25 mg Documented by: Lorazepam (Lorazepam 0.5 Mg Tablet) 0.5 mg PO BID PRN PRN Reason: anxiety Last Admin: 03/18/21 00:24 Dose: 0.5 mg Documented by: Magnesium Hydroxide (Milk Of Magnesia 30 Ml Oral.Susp) 30 ml PO DAILY PRN PRN Reason: Constipation Magnesium Hydroxide (Milk Of Magnesia 30 Ml Oral.Susp) 30 ml PO DAILY PRN PRN Reason: Constipation Melatonin (Melatonin 3 Mg Tablet) 3 mg PO BEDTIME PRN PRN Reason: insomnia Metformin HCl (Metformin Hcl Er 500 Mg Tab.Er.24h) 500 mg PO DAILY [facility] Last Admin: 03/19/21 09:17 Dose: 500 mg Documented by: Metoprolol Tartrate (Metoprolol Tartrate 25 Mg Tablet) 25 mg PO BID [facility]; Protocol Last Admin: 03/19/21 09:18 Dose: 25 mg Documented by: Non-Formulary Medication (Bimatoprost) 1 drop EYE-BOTH BEDTIME [facility] Olanzapine (Olanzapine 2.5 Mg Tablet) 2.5 mg PO BEDTIME [facility] Last Admin: 03/18/21 19:59 Dose: 2.5 mg Documented by: Omeprazole (Omeprazole 20 Mg Capsule.) 20 mg PO DAILY@0630 [facility] Last Admin: 03/19/21 05:54 Dose: 20 mg Documented by: Pharmacy Consult (Consult Rx Perform Med Rec) 1 each MISCELLANE ONCE PRN PRN Reason: Consult order Pharmacy Consult (Consult Rx Perform Med Rec) 1 each MISCELLANE ONCE PRN PRN Reason: Consult order Tamsulosin HCl (Tamsulosin Hcl 0.4 Mg Capsule) 0.4 mg PO BEDTIME [facility] Last Admin: 03/18/21 19:58 Dose: 0.4 mg Documented by: Trazodone HCl (Trazodone Hcl 50 Mg Tablet) 50 mg PO BEDTIME PRN PRN Reason: Insomnia Trazodone HCl (Trazodone Hcl 50 Mg Tablet) 50 mg PO BEDTIME PRN PRN Reason: Insomnia Trimethoprim/Sulfamethoxazole (Sulfamethox/Trimeth 800/160 Tablet) 1 tab PO BID [facility] Last Admin: 03/19/21 10:18 Dose: 1 tab Documented by: Allergies Allergies Allergy/AdvReac Type Severity Reaction Status Date / Time metoprolol AdvReac Unknown bradycardia Verified 03/16/21 14:28 timolol AdvReac Unknown low bp Verified 03/16/21 14:28 Assessment & Plan Assessment & Plan (1) Bipolar disorder: Status: Acute Code(s): F31.9 - Bipolar disorder, unspecified (2) Elbow fracture, right: Qualifiers: Encounter type: initial encounter Fracture type: closed Qualified Code(s): S42.401A - Unspecified fracture of lower end of right humerus, initial encounter for closed fracture Status: Acute Code(s): S42.401A - Unspecified fracture of lower end of right humerus, initial encounter for closed fracture Assessment and Plan: The patient is an elderly male with a history of bipolar disorder with good social support referred to the facility for exacerbation of mood symptoms in the context of poor compliance. Plan 1. Increase Zyprexa up to 5 mg p.o. q.h.s. that has been effective as per his outpatient psychiatrist. 2. Gather collateral information Greater than 50% of the session was spent on counseling and/or coordination of care Reason for contiued inpatient stay Substantial Risk for: inability to function, rapid decompensation and med/psych decompensation
[2021-03-19 20:36] VITALS: BP 121/75; PULSE 68; RESP 18; TEMP 37; O2SAT 94
--- NOTE | 2021-03-19 21:04 | PM.EVENT ---
Event Note Date of Service: 03/19/21 Event Note: Patient has been hypertensive, HR wnl. Discussed with hospitalist and will add norvasc 2.5 mg to med regimen, may increase as tolerated if BP continues to be elevated.
[2021-03-19 21:23] VITALS: BP 132/74; PULSE 65
[2021-03-19] MEDS: Tamsulosin HCL 0.4 MG CAPSULE PO (21:24)
[2021-03-19 21:25] VITALS: BP 132/74; PULSE 65
[2021-03-19] MEDS: amLODIPine Besylate 2.5 MG TABLET PO (21:25)
[2021-03-19] MEDS: OLANZapine 2.5 MG TABLET PO (21:25)
[2021-03-20] MEDS: traZODone HCL 50 MG TABLET PO (01:20)
[2021-03-20] MEDS: LORazepam 0.5 MG TABLET PO (01:20)
[2021-03-20] MEDS: Omeprazole 20 MG CAPSULE.DR PO (05:44)
[2021-03-20 06:00] VITALS: BP 102/56; PULSE 70; TEMP 36.5; O2SAT 95
[2021-03-20] MEDS: Finasteride 5 MG TABLET PO (10:36)
[2021-03-20] MEDS: Metoprolol Tartrate 25 MG TABLET PO (10:37)
[2021-03-20] MEDS: Isosorbide Mononitrate 60 MG TAB.ER.24H PO (10:37)
[2021-03-20] MEDS: lamoTRIgine 25 MG TABLET PO ×2 (10:37→20:29)
[2021-03-20] MEDS: Atorvastatin Calcium 80 MG TABLET PO (10:37)
[2021-03-20] MEDS: Sulfamethox/Trimeth 800/160 TABLET 1 TAB PO ×2 (10:37→20:30)
[2021-03-20] MEDS: metFORMIN HCl ER 500 MG TAB.ER.24H PO (10:37)
--- NOTE | 2021-03-20 13:03 | HO.PSYCHPN ---
Subjective Subjective Date of Service: 03/20/21 Reason For Visit: Depression ? OD Sub abuse Interim History: pt does not verbally respond to MD's queries. for many of them, such as how he is doing or how his mood is, he shrugs by way of response. he has no questions or complaints for MD. per staff, pt has recent falls, currently suffering from an elbow fracture from a fall. no issues or behaviors of concern today. Mental Status Exam Mental Status Exam Patient Appearance: Disheveled Patient Orientation: Person Level of Consciousness: Awake Patient Behavior: Cooperative Mood Description: Constricted Affect Description: Calm Ability to Follow Directions: Good Speech Pattern: No Speech Judgement: Fair Diagnostics Vital Signs (24Hr): Vital Signs - 24 hr 03/19/21 20:36 03/19/21 21:23 03/19/21 21:25 Temperature 98.6 F Pulse Rate 68 65 65 Respiratory Rate 18 Blood Pressure 121/75 132/74 132/74 Pulse Oximetry 94 Body Mass Index 25.7 Labs Results: 03/16/21 19:42 03/16/21 16:39 Imaging Radiology Impressions: ITS Impressions Cervical Spine CT 03/16/21 15:12 IMPRESSION: 1. No acute intracranial pathology. 2. No CT evidence of acute cervical spine fracture or traumatic subluxation 3. Irregular 1.5 cm lesion right upper lobe. This is chronic unchanged since CAT scan of December 03, 2019. Elbow X-Ray 03/16/21 15:12 IMPRESSION: Arthritis. No fracture or dislocation seen. EXAMINATION: Right elbow x-ray CLINICAL INFORMATION: Pain post fall COMPARISON: None. TECHNIQUE: 3 views of the right elbow FINDINGS: There is a comminuted displaced fracture of the olecranon. No other fracture is seen. Joint spaces are normal. There is an elbow joint effusion. There is soft tissue swelling over the fracture. IMPRESSION: Comminuted displaced fracture of the olecranon. EXAMINATION: Right shoulder x-ray CLINICAL INFORMATION: Pain post fall COMPARISON: None. TECHNIQUE: 3 views of the right shoulder FINDINGS: Bone alignment is normal. No fracture or dislocation is seen. The glenohumeral joint is normal. There is arthritis at the acromioclavicular joint. Soft tissues are unremarkable. IMPRESSION: Arthritis at the acromioclavicular joint. EXAMINATION: Chest x-ray CLINICAL INFORMATION: Pain post fall COMPARISON: Previous chest x-ray August 2016 TECHNIQUE: One view of the chest FINDINGS: The cardiac silhouette is slightly enlarged. Thoracic aorta is tortuous. The pulmonary tavon appear prominent. There is a new right subclavian dual chamber pacemaker. There is a small dense right upper lobe nodule that appears unchanged. The lungs are otherwise clear. There is no pleural effusion or pneumothorax. There are surgical clips in the left axilla. There are degenerative changes of the spine. IMPRESSION: No evidence for acute disease in the chest. Prominent pulmonary tavon questionable for enlarged pulmonary arteries versus lymphadenopathy. Head CT 03/16/21 15:12 IMPRESSION: 1. No acute intracranial pathology. 2. No CT evidence of acute cervical spine fracture or traumatic subluxation 3. Irregular 1.5 cm lesion right upper lobe. This is chronic unchanged since CAT scan of December 03, 2019. Shoulder X-Ray 03/16/21 15:12 IMPRESSION: Arthritis. No fracture or dislocation seen. EXAMINATION: Right elbow x-ray CLINICAL INFORMATION: Pain post fall COMPARISON: None. TECHNIQUE: 3 views of the right elbow FINDINGS: There is a comminuted displaced fracture of the olecranon. No other fracture is seen. Joint spaces are normal. There is an elbow joint effusion. There is soft tissue swelling over the fracture. IMPRESSION: Comminuted displaced fracture of the olecranon. EXAMINATION: Right shoulder x-ray CLINICAL INFORMATION: Pain post fall COMPARISON: None. TECHNIQUE: 3 views of the right shoulder FINDINGS: Bone alignment is normal. No fracture or dislocation is seen. The glenohumeral joint is normal. There is arthritis at the acromioclavicular joint. Soft tissues are unremarkable. IMPRESSION: Arthritis at the acromioclavicular joint. EXAMINATION: Chest x-ray CLINICAL INFORMATION: Pain post fall COMPARISON: Previous chest x-ray August 2016 TECHNIQUE: One view of the chest FINDINGS: The cardiac silhouette is slightly enlarged. Thoracic aorta is tortuous. The pulmonary tavon appear prominent. There is a new right subclavian dual chamber pacemaker. There is a small dense right upper lobe nodule that appears unchanged. The lungs are otherwise clear. There is no pleural effusion or pneumothorax. There are surgical clips in the left axilla. There are degenerative changes of the spine. IMPRESSION: No evidence for acute disease in the chest. Prominent pulmonary tavon questionable for enlarged pulmonary arteries versus lymphadenopathy. Wrist X-Ray 03/16/21 15:12 IMPRESSION: Arthritis. No fracture or dislocation seen. EXAMINATION: Right elbow x-ray CLINICAL INFORMATION: Pain post fall COMPARISON: None. TECHNIQUE: 3 views of the right elbow FINDINGS: There is a comminuted displaced fracture of the olecranon. No other fracture is seen. Joint spaces are normal. There is an elbow joint effusion. There is soft tissue swelling over the fracture. IMPRESSION: Comminuted displaced fracture of the olecranon. EXAMINATION: Right shoulder x-ray CLINICAL INFORMATION: Pain post fall COMPARISON: None. TECHNIQUE: 3 views of the right shoulder FINDINGS: Bone alignment is normal. No fracture or dislocation is seen. The glenohumeral joint is normal. There is arthritis at the acromioclavicular joint. Soft tissues are unremarkable. IMPRESSION: Arthritis at the acromioclavicular joint. EXAMINATION: Chest x-ray CLINICAL INFORMATION: Pain post fall COMPARISON: Previous chest x-ray August 2016 TECHNIQUE: One view of the chest FINDINGS: The cardiac silhouette is slightly enlarged. Thoracic aorta is tortuous. The pulmonary tavon appear prominent. There is a new right subclavian dual chamber pacemaker. There is a small dense right upper lobe nodule that appears unchanged. The lungs are otherwise clear. There is no pleural effusion or pneumothorax. There are surgical clips in the left axilla. There are degenerative changes of the spine. IMPRESSION: No evidence for acute disease in the chest. Prominent pulmonary tavon questionable for enlarged pulmonary arteries versus lymphadenopathy. Chest X-Ray 03/16/21 15:13 IMPRESSION: Arthritis. No fracture or dislocation seen. EXAMINATION: Right elbow x-ray CLINICAL INFORMATION: Pain post fall COMPARISON: None. TECHNIQUE: 3 views of the right elbow FINDINGS: There is a comminuted displaced fracture of the olecranon. No other fracture is seen. Joint spaces are normal. There is an elbow joint effusion. There is soft tissue swelling over the fracture. IMPRESSION: Comminuted displaced fracture of the olecranon. EXAMINATION: Right shoulder x-ray CLINICAL INFORMATION: Pain post fall COMPARISON: None. TECHNIQUE: 3 views of the right shoulder FINDINGS: Bone alignment is normal. No fracture or dislocation is seen. The glenohumeral joint is normal. There is arthritis at the acromioclavicular joint. Soft tissues are unremarkable. IMPRESSION: Arthritis at the acromioclavicular joint. EXAMINATION: Chest x-ray CLINICAL INFORMATION: Pain post fall COMPARISON: Previous chest x-ray August 2016 TECHNIQUE: One view of the chest FINDINGS: The cardiac silhouette is slightly enlarged. Thoracic aorta is tortuous. The pulmonary tavon appear prominent. There is a new right subclavian dual chamber pacemaker. There is a small dense right upper lobe nodule that appears unchanged. The lungs are otherwise clear. There is no pleural effusion or pneumothorax. There are surgical clips in the left axilla. There are degenerative changes of the spine. IMPRESSION: No evidence for acute disease in the chest. Prominent pulmonary tavon questionable for enlarged pulmonary arteries versus lymphadenopathy. Medications Medications Current Medications Acetaminophen (Acetaminophen 325 Mg Tablet) 650 mg PO Q6H PRN PRN Reason: Headache/Pain Mild Scale (1-3) Acetaminophen (Acetaminophen 325 Mg Tablet) 650 mg PO Q6H PRN PRN Reason: Headache/Pain Mild Scale (1-3) Al Hydroxide/Mg Hydroxide (Magnesium Hydrox/Alum Hydrox 30 Ml Oral.Susp) 30 ml PO Q6H PRN PRN Reason: Heartburn/Nausea Al Hydroxide/Mg Hydroxide (Magnesium Hydrox/Alum Hydrox 30 Ml Oral.Susp) 30 ml PO Q6H PRN PRN Reason: Heartburn/Nausea Alendronate Sodium (Alendronate Sodium 70 Mg Tablet) 70 mg PO SA [facility] Last Admin: 03/20/21 10:56 Dose: 70 mg Documented by: Amlodipine Besylate (Amlodipine Besylate 2.5 Mg Tablet) 2.5 mg PO BEDTIME [facility]; Protocol Last Admin: 03/19/21 21:25 Dose: 2.5 mg Documented by: Atorvastatin Calcium (Atorvastatin Calcium 80 Mg Tablet) 80 mg PO DAILY [facility] Last Admin: 03/20/21 10:37 Dose: 80 mg Documented by: Finasteride (Finasteride 5 Mg Tablet) 5 mg PO DAILY [facility] Last Admin: 03/20/21 10:36 Dose: 5 mg Documented by: Hydroxyzine HCl (Hydroxyzine Hcl 25 Mg Tablet) 25 mg PO Q6H PRN PRN Reason: Anxiety Isosorbide Mononitrate (Isosorbide Mononitrate 60 Mg Tab.Er.24h) 60 mg PO DAILY [facility]; Protocol Last Admin: 03/20/21 10:37 Dose: 60 mg Documented by: Lamotrigine (Lamotrigine 25 Mg Tablet) 25 mg PO BID [facility] Last Admin: 03/20/21 10:37 Dose: 25 mg Documented by: Lorazepam (Lorazepam 0.5 Mg Tablet) 0.5 mg PO BID PRN PRN Reason: anxiety Last Admin: 03/20/21 01:20 Dose: 0.5 mg Documented by: Magnesium Hydroxide (Milk Of Magnesia 30 Ml Oral.Susp) 30 ml PO DAILY PRN PRN Reason: Constipation Magnesium Hydroxide (Milk Of Magnesia 30 Ml Oral.Susp) 30 ml PO DAILY PRN PRN Reason: Constipation Melatonin (Melatonin 3 Mg Tablet) 3 mg PO BEDTIME PRN PRN Reason: insomnia Metformin HCl (Metformin Hcl Er 500 Mg Tab.Er.24h) 500 mg PO DAILY [facility] Last Admin: 03/20/21 10:37 Dose: 500 mg Documented by: Metoprolol Tartrate (Metoprolol Tartrate 25 Mg Tablet) 25 mg PO BID [facility]; Protocol Last Admin: 03/20/21 10:37 Dose: 25 mg Documented by: Non-Formulary Medication (Bimatoprost) 1 drop EYE-BOTH BEDTIME [facility] Olanzapine (Olanzapine 2.5 Mg Tablet) 2.5 mg PO BEDTIME [facility] Last Admin: 03/19/21 21:25 Dose: 2.5 mg Documented by: Omeprazole (Omeprazole 20 Mg Capsule.) 20 mg PO DAILY@0630 [facility] Last Admin: 03/20/21 05:44 Dose: 20 mg Documented by: Pharmacy Consult (Consult Rx Perform Med Rec) 1 each MISCELLANE ONCE PRN PRN Reason: Consult order Pharmacy Consult (Consult Rx Perform Med Rec) 1 each MISCELLANE ONCE PRN PRN Reason: Consult order Tamsulosin HCl (Tamsulosin Hcl 0.4 Mg Capsule) 0.4 mg PO BEDTIME [facility] Last Admin: 03/19/21 21:24 Dose: 0.4 mg Documented by: Trazodone HCl (Trazodone Hcl 50 Mg Tablet) 50 mg PO BEDTIME PRN PRN Reason: Insomnia Last Admin: 03/20/21 01:20 Dose: 50 mg Documented by: Trazodone HCl (Trazodone Hcl 50 Mg Tablet) 50 mg PO BEDTIME PRN PRN Reason: Insomnia Trimethoprim/Sulfamethoxazole (Sulfamethox/Trimeth 800/160 Tablet) 1 tab PO BID [facility] Last Admin: 03/20/21 10:37 Dose: 1 tab Documented by: Allergies Allergies Allergy/AdvReac Type Severity Reaction Status Date / Time metoprolol AdvReac Unknown bradycardia Verified 03/16/21 14:28 timolol AdvReac Unknown low bp Verified 03/16/21 14:28 Assessment & Plan Assessment & Plan (1) Bipolar disorder: Status: Acute Code(s): F31.9 - Bipolar disorder, unspecified (2) Elbow fracture, right: Qualifiers: Encounter type: initial encounter Fracture type: closed Qualified Code(s): S42.401A - Unspecified fracture of lower end of right humerus, initial encounter for closed fracture Status: Acute Code(s): S42.401A - Unspecified fracture of lower end of right humerus, initial encounter for closed fracture Assessment and Plan: The patient is an elderly male with a history of bipolar disorder with good social support referred to the facility for exacerbation of mood symptoms in the context of poor compliance. Plan 1. Increase Zyprexa up to 5 mg p.o. q.h.s. that has been effective as per his outpatient psychiatrist. 2. Gather collateral information Greater than 50% of the session was spent on counseling and/or coordination of care Reason for contiued inpatient stay Substantial Risk for: inability to function and med/psych decompensation
[2021-03-20 20:12] VITALS: BP 124/70; PULSE 56; RESP 18; TEMP 36.6; O2SAT 97
[2021-03-20 20:27] VITALS: BP 124/70; PULSE 56
[2021-03-20] MEDS: amLODIPine Besylate 2.5 MG TABLET PO (20:27)
[2021-03-20 20:29] VITALS: BP 124/70; PULSE 56
[2021-03-20] MEDS: Tamsulosin HCL 0.4 MG CAPSULE PO (20:29)
[2021-03-20] MEDS: OLANZapine 2.5 MG TABLET PO (20:31)
[2021-03-21] MEDS: Omeprazole 20 MG CAPSULE.DR PO (05:57)
[2021-03-21 08:22] VITALS: BP 104/66; PULSE 69
[2021-03-21] MEDS: metFORMIN HCl ER 500 MG TAB.ER.24H PO (08:22)
[2021-03-21] MEDS: lamoTRIgine 25 MG TABLET PO ×2 (08:22→20:05)
[2021-03-21] MEDS: Isosorbide Mononitrate 60 MG TAB.ER.24H PO (08:22)
[2021-03-21] MEDS: Sulfamethox/Trimeth 800/160 TABLET 1 TAB PO ×2 (08:22→20:04)
[2021-03-21 08:23] VITALS: BP 104/66; PULSE 69
[2021-03-21] MEDS: Finasteride 5 MG TABLET PO (08:23)
[2021-03-21] MEDS: Metoprolol Tartrate 25 MG TABLET PO ×2 (08:23→20:04)
[2021-03-21] MEDS: Atorvastatin Calcium 80 MG TABLET PO (08:24)
[2021-03-21 08:59] VITALS: BP 104/66; PULSE 69; RESP 18; O2SAT 95
--- NOTE | 2021-03-21 14:07 | HO.PSYCHPN ---
Subjective Subjective Date of Service: 03/21/21 Reason For Visit: Depression ? OD Sub abuse Interim History: pt remains minimally verbal, shrugging the majority of his answers again today. no questions or complaints. per staff, BPs as checked on left arm OK held meds last night due to bradycardia. received all of his medications this morning. Mental Status Exam Mental Status Exam Patient Appearance: Disheveled Patient Orientation: Person Level of Consciousness: Awake Patient Behavior: Cooperative Mood Description: Constricted Affect Description: Calm Ability to Follow Directions: Good Speech Pattern: No Speech Judgement: Fair Diagnostics Vital Signs (24Hr): Vital Signs - 24 hr 03/20/21 20:12 03/20/21 20:27 03/20/21 20:29 Temperature 97.8 F Pulse Rate 56 56 56 Respiratory Rate 18 Blood Pressure 124/70 124/70 124/70 Pulse Oximetry 97 03/21/21 08:22 03/21/21 08:23 03/21/21 08:59 Temperature Pulse Rate 69 69 69 Respiratory Rate 18 Blood Pressure 104/66 104/66 104/66 Pulse Oximetry 95 Body Mass Index 25.7 Labs Results: 03/16/21 19:42 03/16/21 16:39 Imaging Radiology Impressions: ITS Impressions Cervical Spine CT 03/16/21 15:12 IMPRESSION: 1. No acute intracranial pathology. 2. No CT evidence of acute cervical spine fracture or traumatic subluxation 3. Irregular 1.5 cm lesion right upper lobe. This is chronic unchanged since CAT scan of December 03, 2019. Elbow X-Ray 03/16/21 15:12 IMPRESSION: Arthritis. No fracture or dislocation seen. EXAMINATION: Right elbow x-ray CLINICAL INFORMATION: Pain post fall COMPARISON: None. TECHNIQUE: 3 views of the right elbow FINDINGS: There is a comminuted displaced fracture of the olecranon. No other fracture is seen. Joint spaces are normal. There is an elbow joint effusion. There is soft tissue swelling over the fracture. IMPRESSION: Comminuted displaced fracture of the olecranon. EXAMINATION: Right shoulder x-ray CLINICAL INFORMATION: Pain post fall COMPARISON: None. TECHNIQUE: 3 views of the right shoulder FINDINGS: Bone alignment is normal. No fracture or dislocation is seen. The glenohumeral joint is normal. There is arthritis at the acromioclavicular joint. Soft tissues are unremarkable. IMPRESSION: Arthritis at the acromioclavicular joint. EXAMINATION: Chest x-ray CLINICAL INFORMATION: Pain post fall COMPARISON: Previous chest x-ray August 2016 TECHNIQUE: One view of the chest FINDINGS: The cardiac silhouette is slightly enlarged. Thoracic aorta is tortuous. The pulmonary taovn appear prominent. There is a new right subclavian dual chamber pacemaker. There is a small dense right upper lobe nodule that appears unchanged. The lungs are otherwise clear. There is no pleural effusion or pneumothorax. There are surgical clips in the left axilla. There are degenerative changes of the spine. IMPRESSION: No evidence for acute disease in the chest. Prominent pulmonary tavon questionable for enlarged pulmonary arteries versus lymphadenopathy. Head CT 03/16/21 15:12 IMPRESSION: 1. No acute intracranial pathology. 2. No CT evidence of acute cervical spine fracture or traumatic subluxation 3. Irregular 1.5 cm lesion right upper lobe. This is chronic unchanged since CAT scan of December 03, 2019. Shoulder X-Ray 03/16/21 15:12 IMPRESSION: Arthritis. No fracture or dislocation seen. EXAMINATION: Right elbow x-ray CLINICAL INFORMATION: Pain post fall COMPARISON: None. TECHNIQUE: 3 views of the right elbow FINDINGS: There is a comminuted displaced fracture of the olecranon. No other fracture is seen. Joint spaces are normal. There is an elbow joint effusion. There is soft tissue swelling over the fracture. IMPRESSION: Comminuted displaced fracture of the olecranon. EXAMINATION: Right shoulder x-ray CLINICAL INFORMATION: Pain post fall COMPARISON: None. TECHNIQUE: 3 views of the right shoulder FINDINGS: Bone alignment is normal. No fracture or dislocation is seen. The glenohumeral joint is normal. There is arthritis at the acromioclavicular joint. Soft tissues are unremarkable. IMPRESSION: Arthritis at the acromioclavicular joint. EXAMINATION: Chest x-ray CLINICAL INFORMATION: Pain post fall COMPARISON: Previous chest x-ray August 2016 TECHNIQUE: One view of the chest FINDINGS: The cardiac silhouette is slightly enlarged. Thoracic aorta is tortuous. The pulmonary tavon appear prominent. There is a new right subclavian dual chamber pacemaker. There is a small dense right upper lobe nodule that appears unchanged. The lungs are otherwise clear. There is no pleural effusion or pneumothorax. There are surgical clips in the left axilla. There are degenerative changes of the spine. IMPRESSION: No evidence for acute disease in the chest. Prominent pulmonary tavon questionable for enlarged pulmonary arteries versus lymphadenopathy. Wrist X-Ray 03/16/21 15:12 IMPRESSION: Arthritis. No fracture or dislocation seen. EXAMINATION: Right elbow x-ray CLINICAL INFORMATION: Pain post fall COMPARISON: None. TECHNIQUE: 3 views of the right elbow FINDINGS: There is a comminuted displaced fracture of the olecranon. No other fracture is seen. Joint spaces are normal. There is an elbow joint effusion. There is soft tissue swelling over the fracture. IMPRESSION: Comminuted displaced fracture of the olecranon. EXAMINATION: Right shoulder x-ray CLINICAL INFORMATION: Pain post fall COMPARISON: None. TECHNIQUE: 3 views of the right shoulder FINDINGS: Bone alignment is normal. No fracture or dislocation is seen. The glenohumeral joint is normal. There is arthritis at the acromioclavicular joint. Soft tissues are unremarkable. IMPRESSION: Arthritis at the acromioclavicular joint. EXAMINATION: Chest x-ray CLINICAL INFORMATION: Pain post fall COMPARISON: Previous chest x-ray August 2016 TECHNIQUE: One view of the chest FINDINGS: The cardiac silhouette is slightly enlarged. Thoracic aorta is tortuous. The pulmonary tavon appear prominent. There is a new right subclavian dual chamber pacemaker. There is a small dense right upper lobe nodule that appears unchanged. The lungs are otherwise clear. There is no pleural effusion or pneumothorax. There are surgical clips in the left axilla. There are degenerative changes of the spine. IMPRESSION: No evidence for acute disease in the chest. Prominent pulmonary tavon questionable for enlarged pulmonary arteries versus lymphadenopathy. Chest X-Ray 03/16/21 15:13 IMPRESSION: Arthritis. No fracture or dislocation seen. EXAMINATION: Right elbow x-ray CLINICAL INFORMATION: Pain post fall COMPARISON: None. TECHNIQUE: 3 views of the right elbow FINDINGS: There is a comminuted displaced fracture of the olecranon. No other fracture is seen. Joint spaces are normal. There is an elbow joint effusion. There is soft tissue swelling over the fracture. IMPRESSION: Comminuted displaced fracture of the olecranon. EXAMINATION: Right shoulder x-ray CLINICAL INFORMATION: Pain post fall COMPARISON: None. TECHNIQUE: 3 views of the right shoulder FINDINGS: Bone alignment is normal. No fracture or dislocation is seen. The glenohumeral joint is normal. There is arthritis at the acromioclavicular joint. Soft tissues are unremarkable. IMPRESSION: Arthritis at the acromioclavicular joint. EXAMINATION: Chest x-ray CLINICAL INFORMATION: Pain post fall COMPARISON: Previous chest x-ray August 2016 TECHNIQUE: One view of the chest FINDINGS: The cardiac silhouette is slightly enlarged. Thoracic aorta is tortuous. The pulmonary tavon appear prominent. There is a new right subclavian dual chamber pacemaker. There is a small dense right upper lobe nodule that appears unchanged. The lungs are otherwise clear. There is no pleural effusion or pneumothorax. There are surgical clips in the left axilla. There are degenerative changes of the spine. IMPRESSION: No evidence for acute disease in the chest. Prominent pulmonary tavon questionable for enlarged pulmonary arteries versus lymphadenopathy. Medications Medications Current Medications Acetaminophen (Acetaminophen 325 Mg Tablet) 650 mg PO Q6H PRN PRN Reason: Headache/Pain Mild Scale (1-3) Acetaminophen (Acetaminophen 325 Mg Tablet) 650 mg PO Q6H PRN PRN Reason: Headache/Pain Mild Scale (1-3) Al Hydroxide/Mg Hydroxide (Magnesium Hydrox/Alum Hydrox 30 Ml Oral.Susp) 30 ml PO Q6H PRN PRN Reason: Heartburn/Nausea Al Hydroxide/Mg Hydroxide (Magnesium Hydrox/Alum Hydrox 30 Ml Oral.Susp) 30 ml PO Q6H PRN PRN Reason: Heartburn/Nausea Alendronate Sodium (Alendronate Sodium 70 Mg Tablet) 70 mg PO SA [facility] Last Admin: 03/20/21 10:56 Dose: 70 mg Documented by: Amlodipine Besylate (Amlodipine Besylate 2.5 Mg Tablet) 2.5 mg PO BEDTIME [facility]; Protocol Last Admin: 03/20/21 20:27 Dose: 2.5 mg Documented by: Atorvastatin Calcium (Atorvastatin Calcium 80 Mg Tablet) 80 mg PO DAILY [facility] Last Admin: 03/21/21 08:24 Dose: 80 mg Documented by: Finasteride (Finasteride 5 Mg Tablet) 5 mg PO DAILY [facility] Last Admin: 03/21/21 08:23 Dose: 5 mg Documented by: Hydroxyzine HCl (Hydroxyzine Hcl 25 Mg Tablet) 25 mg PO Q6H PRN PRN Reason: Anxiety Isosorbide Mononitrate (Isosorbide Mononitrate 60 Mg Tab.Er.24h) 60 mg PO DAILY [facility]; Protocol Last Admin: 03/21/21 08:22 Dose: 60 mg Documented by: Lamotrigine (Lamotrigine 25 Mg Tablet) 25 mg PO BID [facility] Last Admin: 03/21/21 08:22 Dose: 25 mg Documented by: Lorazepam (Lorazepam 0.5 Mg Tablet) 0.5 mg PO BID PRN PRN Reason: anxiety Last Admin: 03/20/21 01:20 Dose: 0.5 mg Documented by: Magnesium Hydroxide (Milk Of Magnesia 30 Ml Oral.Susp) 30 ml PO DAILY PRN PRN Reason: Constipation Magnesium Hydroxide (Milk Of Magnesia 30 Ml Oral.Susp) 30 ml PO DAILY PRN PRN Reason: Constipation Melatonin (Melatonin 3 Mg Tablet) 3 mg PO BEDTIME PRN PRN Reason: insomnia Metformin HCl (Metformin Hcl Er 500 Mg Tab.Er.24h) 500 mg PO DAILY [facility] Last Admin: 03/21/21 08:22 Dose: 500 mg Documented by: Metoprolol Tartrate (Metoprolol Tartrate 25 Mg Tablet) 25 mg PO BID [facility]; Protocol Last Admin: 03/21/21 08:23 Dose: 25 mg Documented by: Non-Formulary Medication (Bimatoprost) 1 drop EYE-BOTH BEDTIME [facility] Olanzapine (Olanzapine 2.5 Mg Tablet) 2.5 mg PO BEDTIME [facility] Last Admin: 03/20/21 20:31 Dose: 2.5 mg Documented by: Omeprazole (Omeprazole 20 Mg Capsule.Dr) 20 mg PO DAILY@0630 [facility] Last Admin: 03/21/21 05:57 Dose: 20 mg Documented by: Pharmacy Consult (Consult Rx Perform Med Rec) 1 each MISCELLANE ONCE PRN PRN Reason: Consult order Pharmacy Consult (Consult Rx Perform Med Rec) 1 each MISCELLANE ONCE PRN PRN Reason: Consult order Tamsulosin HCl (Tamsulosin Hcl 0.4 Mg Capsule) 0.4 mg PO BEDTIME [facility] Last Admin: 03/20/21 20:29 Dose: 0.4 mg Documented by: Trazodone HCl (Trazodone Hcl 50 Mg Tablet) 50 mg PO BEDTIME PRN PRN Reason: Insomnia Last Admin: 03/20/21 01:20 Dose: 50 mg Documented by: Trazodone HCl (Trazodone Hcl 50 Mg Tablet) 50 mg PO BEDTIME PRN PRN Reason: Insomnia Trimethoprim/Sulfamethoxazole (Sulfamethox/Trimeth 800/160 Tablet) 1 tab PO BID [facility] Last Admin: 03/21/21 08:22 Dose: 1 tab Documented by: Allergies Allergies Allergy/AdvReac Type Severity Reaction Status Date / Time metoprolol AdvReac Unknown bradycardia Verified 03/16/21 14:28 timolol AdvReac Unknown low bp Verified 03/16/21 14:28 Assessment & Plan Assessment & Plan (1) Bipolar disorder: Status: Acute Code(s): F31.9 - Bipolar disorder, unspecified (2) Elbow fracture, right: Qualifiers: Encounter type: initial encounter Fracture type: closed Qualified Code(s): S42.401A - Unspecified fracture of lower end of right humerus, initial encounter for closed fracture Status: Acute Code(s): S42.401A - Unspecified fracture of lower end of right humerus, initial encounter for closed fracture Assessment and Plan: The patient is an elderly male with a history of bipolar disorder with good social support referred to the facility for exacerbation of mood symptoms in the context of poor compliance. Plan 1. Increased Zyprexa up to 5 mg p.o. q.h.s. that has been effective as per his outpatient psychiatrist. 2. Gather collateral information Greater than 50% of the session was spent on counseling and/or coordination of care Reason for contiued inpatient stay Substantial Risk for: inability to function and med/psych decompensation
[2021-03-21 18:00] VITALS: BP 118/59; PULSE 68; RESP 18; TEMP 36.3; O2SAT 93
[2021-03-21 20:04] VITALS: BP 118/59; PULSE 68
[2021-03-21 20:05] VITALS: BP 118/59; PULSE 68
[2021-03-21] MEDS: OLANZapine 2.5 MG TABLET PO (20:05)
[2021-03-21] MEDS: amLODIPine Besylate 2.5 MG TABLET PO (20:05)
[2021-03-21] MEDS: Tamsulosin HCL 0.4 MG CAPSULE PO (20:05)
[2021-03-22] MEDS: Omeprazole 20 MG CAPSULE.DR PO (05:57)
[2021-03-22 08:15] VITALS: BP 105/68; PULSE 56; RESP 14; TEMP 36.2; O2SAT 97
[2021-03-22 09:28] VITALS: BP 95/90; PULSE 55; RESP 14; TEMP 36.4; O2SAT 96
[2021-03-22] MEDS: Sulfamethox/Trimeth 800/160 TABLET 1 TAB PO ×2 (09:42→21:43)
[2021-03-22] MEDS: Atorvastatin Calcium 80 MG TABLET PO (09:42)
[2021-03-22] MEDS: metFORMIN HCl ER 500 MG TAB.ER.24H PO (09:42)
[2021-03-22] MEDS: lamoTRIgine 25 MG TABLET PO ×2 (09:42→21:43)
[2021-03-22] MEDS: Finasteride 5 MG TABLET PO (09:44)
[2021-03-22 09:58] VITALS: BP 95/90; PULSE 55
[2021-03-22 10:00] VITALS: BP 95/90; PULSE 55
--- NOTE | 2021-03-22 12:18 | HO.PSYCHPN ---
Subjective Subjective Date of Service: 03/22/21 Reason For Visit: Depression ? OD Sub abuse Interim History: The nursing staff reported that the patient can use his left hand with some impairment but overall, functional. His affect remains flat. On interview, he denied new symptoms, still reports racing thoughts. We had a family meeting and the family requested a few changes on his medical and psychiatric treatment. Unable to fully do the MOCA since he couldn't use his right hand 06/12. He missed all the points for recall (short term memory) and he couldn't do the 5 point of initial visuo-spacial. Review of Systems Acute medical concerns: No Medical Review of Systems: unchanged Mental Status Exam Mental Status Exam Patient Appearance: Well Grooomed Patient Orientation: Person, Place and Situation Level of Consciousness: Awake and Restless Patient Behavior: Guarded, Passive and Suspicious Mood Description: Withdrawn Affect Description: Constricted Patient Cognition Impaired: Yes Diagnostics Vital Signs (24Hr): Vital Signs - 24 hr 03/21/21 18:00 03/21/21 20:04 03/21/21 20:05 Temperature 97.3 F Pulse Rate 68 68 68 Respiratory Rate 18 Blood Pressure 118/59 L 118/59 L 118/59 L Pulse Oximetry 93 03/22/21 08:15 03/22/21 09:28 03/22/21 09:58 Temperature 97.1 F 97.6 F Pulse Rate 56 55 55 Respiratory Rate 14 14 Blood Pressure 105/68 95/90 H 95/90 H Pulse Oximetry 97 96 03/22/21 10:00 Temperature Pulse Rate 55 Respiratory Rate Blood Pressure 95/90 H Pulse Oximetry Body Mass Index 25.7 Labs Results: 03/16/21 19:42 03/16/21 16:39 Imaging Radiology Impressions: ITS Impressions Cervical Spine CT 03/16/21 15:12 IMPRESSION: 1. No acute intracranial pathology. 2. No CT evidence of acute cervical spine fracture or traumatic subluxation 3. Irregular 1.5 cm lesion right upper lobe. This is chronic unchanged since CAT scan of December 03, 2019. Elbow X-Ray 03/16/21 15:12 IMPRESSION: Arthritis. No fracture or dislocation seen. EXAMINATION: Right elbow x-ray CLINICAL INFORMATION: Pain post fall COMPARISON: None. TECHNIQUE: 3 views of the right elbow FINDINGS: There is a comminuted displaced fracture of the olecranon. No other fracture is seen. Joint spaces are normal. There is an elbow joint effusion. There is soft tissue swelling over the fracture. IMPRESSION: Comminuted displaced fracture of the olecranon. EXAMINATION: Right shoulder x-ray CLINICAL INFORMATION: Pain post fall COMPARISON: None. TECHNIQUE: 3 views of the right shoulder FINDINGS: Bone alignment is normal. No fracture or dislocation is seen. The glenohumeral joint is normal. There is arthritis at the acromioclavicular joint. Soft tissues are unremarkable. IMPRESSION: Arthritis at the acromioclavicular joint. EXAMINATION: Chest x-ray CLINICAL INFORMATION: Pain post fall COMPARISON: Previous chest x-ray August 2016 TECHNIQUE: One view of the chest FINDINGS: The cardiac silhouette is slightly enlarged. Thoracic aorta is tortuous. The pulmonary tavon appear prominent. There is a new right subclavian dual chamber pacemaker. There is a small dense right upper lobe nodule that appears unchanged. The lungs are otherwise clear. There is no pleural effusion or pneumothorax. There are surgical clips in the left axilla. There are degenerative changes of the spine. IMPRESSION: No evidence for acute disease in the chest. Prominent pulmonary tavon questionable for enlarged pulmonary arteries versus lymphadenopathy. Head CT 03/16/21 15:12 IMPRESSION: 1. No acute intracranial pathology. 2. No CT evidence of acute cervical spine fracture or traumatic subluxation 3. Irregular 1.5 cm lesion right upper lobe. This is chronic unchanged since CAT scan of December 03, 2019. Shoulder X-Ray 03/16/21 15:12 IMPRESSION: Arthritis. No fracture or dislocation seen. EXAMINATION: Right elbow x-ray CLINICAL INFORMATION: Pain post fall COMPARISON: None. TECHNIQUE: 3 views of the right elbow FINDINGS: There is a comminuted displaced fracture of the olecranon. No other fracture is seen. Joint spaces are normal. There is an elbow joint effusion. There is soft tissue swelling over the fracture. IMPRESSION: Comminuted displaced fracture of the olecranon. EXAMINATION: Right shoulder x-ray CLINICAL INFORMATION: Pain post fall COMPARISON: None. TECHNIQUE: 3 views of the right shoulder FINDINGS: Bone alignment is normal. No fracture or dislocation is seen. The glenohumeral joint is normal. There is arthritis at the acromioclavicular joint. Soft tissues are unremarkable. IMPRESSION: Arthritis at the acromioclavicular joint. EXAMINATION: Chest x-ray CLINICAL INFORMATION: Pain post fall COMPARISON: Previous chest x-ray August 2016 TECHNIQUE: One view of the chest FINDINGS: The cardiac silhouette is slightly enlarged. Thoracic aorta is tortuous. The pulmonary tavon appear prominent. There is a new right subclavian dual chamber pacemaker. There is a small dense right upper lobe nodule that appears unchanged. The lungs are otherwise clear. There is no pleural effusion or pneumothorax. There are surgical clips in the left axilla. There are degenerative changes of the spine. IMPRESSION: No evidence for acute disease in the chest. Prominent pulmonary tavon questionable for enlarged pulmonary arteries versus lymphadenopathy. Wrist X-Ray 03/16/21 15:12 IMPRESSION: Arthritis. No fracture or dislocation seen. EXAMINATION: Right elbow x-ray CLINICAL INFORMATION: Pain post fall COMPARISON: None. TECHNIQUE: 3 views of the right elbow FINDINGS: There is a comminuted displaced fracture of the olecranon. No other fracture is seen. Joint spaces are normal. There is an elbow joint effusion. There is soft tissue swelling over the fracture. IMPRESSION: Comminuted displaced fracture of the olecranon. EXAMINATION: Right shoulder x-ray CLINICAL INFORMATION: Pain post fall COMPARISON: None. TECHNIQUE: 3 views of the right shoulder FINDINGS: Bone alignment is normal. No fracture or dislocation is seen. The glenohumeral joint is normal. There is arthritis at the acromioclavicular joint. Soft tissues are unremarkable. IMPRESSION: Arthritis at the acromioclavicular joint. EXAMINATION: Chest x-ray CLINICAL INFORMATION: Pain post fall COMPARISON: Previous chest x-ray August 2016 TECHNIQUE: One view of the chest FINDINGS: The cardiac silhouette is slightly enlarged. Thoracic aorta is tortuous. The pulmonary tavon appear prominent. There is a new right subclavian dual chamber pacemaker. There is a small dense right upper lobe nodule that appears unchanged. The lungs are otherwise clear. There is no pleural effusion or pneumothorax. There are surgical clips in the left axilla. There are degenerative changes of the spine. IMPRESSION: No evidence for acute disease in the chest. Prominent pulmonary tavon questionable for enlarged pulmonary arteries versus lymphadenopathy. Chest X-Ray 03/16/21 15:13 IMPRESSION: Arthritis. No fracture or dislocation seen. EXAMINATION: Right elbow x-ray CLINICAL INFORMATION: Pain post fall COMPARISON: None. TECHNIQUE: 3 views of the right elbow FINDINGS: There is a comminuted displaced fracture of the olecranon. No other fracture is seen. Joint spaces are normal. There is an elbow joint effusion. There is soft tissue swelling over the fracture. IMPRESSION: Comminuted displaced fracture of the olecranon. EXAMINATION: Right shoulder x-ray CLINICAL INFORMATION: Pain post fall COMPARISON: None. TECHNIQUE: 3 views of the right shoulder FINDINGS: Bone alignment is normal. No fracture or dislocation is seen. The glenohumeral joint is normal. There is arthritis at the acromioclavicular joint. Soft tissues are unremarkable. IMPRESSION: Arthritis at the acromioclavicular joint. EXAMINATION: Chest x-ray CLINICAL INFORMATION: Pain post fall COMPARISON: Previous chest x-ray August 2016 TECHNIQUE: One view of the chest FINDINGS: The cardiac silhouette is slightly enlarged. Thoracic aorta is tortuous. The pulmonary tavon appear prominent. There is a new right subclavian dual chamber pacemaker. There is a small dense right upper lobe nodule that appears unchanged. The lungs are otherwise clear. There is no pleural effusion or pneumothorax. There are surgical clips in the left axilla. There are degenerative changes of the spine. IMPRESSION: No evidence for acute disease in the chest. Prominent pulmonary tavon questionable for enlarged pulmonary arteries versus lymphadenopathy. Medications Medications Current Medications Acetaminophen (Acetaminophen 325 Mg Tablet) 650 mg PO Q6H PRN PRN Reason: Headache/Pain Mild Scale (1-3) Acetaminophen (Acetaminophen 325 Mg Tablet) 650 mg PO Q6H PRN PRN Reason: Headache/Pain Mild Scale (1-3) Al Hydroxide/Mg Hydroxide (Magnesium Hydrox/Alum Hydrox 30 Ml Oral.Susp) 30 ml PO Q6H PRN PRN Reason: Heartburn/Nausea Alendronate Sodium (Alendronate Sodium 70 Mg Tablet) 70 mg PO SA [facility] Last Admin: 03/20/21 10:56 Dose: 70 mg Documented by: Amlodipine Besylate (Amlodipine Besylate 2.5 Mg Tablet) 2.5 mg PO BEDTIME [facility]; Protocol Last Admin: 03/21/21 20:05 Dose: 2.5 mg Documented by: Atorvastatin Calcium (Atorvastatin Calcium 80 Mg Tablet) 80 mg PO DAILY [facility] Last Admin: 03/22/21 09:42 Dose: 80 mg Documented by: Finasteride (Finasteride 5 Mg Tablet) 5 mg PO DAILY [facility] Last Admin: 03/22/21 09:44 Dose: 5 mg Documented by: Hydroxyzine HCl (Hydroxyzine Hcl 25 Mg Tablet) 25 mg PO Q6H PRN PRN Reason: Anxiety Isosorbide Mononitrate (Isosorbide Mononitrate 60 Mg Tab.Er.24h) 60 mg PO DAILY [facility]; Protocol Last Admin: 03/22/21 09:58 Dose: Not Given Documented by: Lamotrigine (Lamotrigine 25 Mg Tablet) 25 mg PO BID [facility] Last Admin: 03/22/21 09:42 Dose: 25 mg Documented by: Magnesium Hydroxide (Milk Of Magnesia 30 Ml Oral.Susp) 30 ml PO DAILY PRN PRN Reason: Constipation Magnesium Hydroxide (Milk Of Magnesia 30 Ml Oral.Susp) 30 ml PO DAILY PRN PRN Reason: Constipation Melatonin (Melatonin 3 Mg Tablet) 3 mg PO BEDTIME PRN PRN Reason: insomnia Metformin HCl (Metformin Hcl Er 500 Mg Tab.Er.24h) 500 mg PO DAILY [facility] Last Admin: 03/22/21 09:42 Dose: 500 mg Documented by: Metoprolol Tartrate (Metoprolol Tartrate 12.5 Mg Halftab) 12.5 mg PO BID [facility]; Protocol Non-Formulary Medication (Bimatoprost) 1 drop EYE-BOTH BEDTIME [facility] Olanzapine (Olanzapine 5 Mg Tablet) 5 mg PO BEDTIME [facility] Omeprazole (Omeprazole 20 Mg Capsule.Dr) 20 mg PO DAILY@0630 [facility] Last Admin: 03/22/21 05:57 Dose: 20 mg Documented by: Pharmacy Consult (Consult Rx Perform Med Rec) 1 each MISCELLANE ONCE PRN PRN Reason: Consult order Pharmacy Consult (Consult Rx Perform Med Rec) 1 each MISCELLANE ONCE PRN PRN Reason: Consult order Trazodone HCl (Trazodone Hcl 50 Mg Tablet) 50 mg PO BEDTIME PRN PRN Reason: Insomnia Last Admin: 03/20/21 01:20 Dose: 50 mg Documented by: Trimethoprim/Sulfamethoxazole (Sulfamethox/Trimeth 800/160 Tablet) 1 tab PO BID [facility] Last Admin: 03/22/21 09:42 Dose: 1 tab Documented by: Allergies Allergies Allergy/AdvReac Type Severity Reaction Status Date / Time metoprolol AdvReac Unknown bradycardia Verified 03/16/21 14:28 timolol AdvReac Unknown low bp Verified 03/16/21 14:28 Assessment & Plan Assessment & Plan (1) Bipolar disorder: Status: Acute Code(s): F31.9 - Bipolar disorder, unspecified (2) Elbow fracture, right: Qualifiers: Encounter type: initial encounter Fracture type: closed Qualified Code(s): S42.401A - Unspecified fracture of lower end of right humerus, initial encounter for closed fracture Status: Acute Code(s): S42.401A - Unspecified fracture of lower end of right humerus, initial encounter for closed fracture Assessment and Plan: The patient is an elderly male with a history of bipolar disorder with good social support referred to the facility for exacerbation of mood symptoms in the context of poor compliance. Plan 1. Increased Zyprexa up to 5 mg p.o. q.h.s. that has been effective as per his outpatient psychiatrist. 2. Gather collateral information Greater than 50% of the session was spent on counseling and/or coordination of care Reason for contiued inpatient stay Substantial Risk for: inability to function, rapid decompensation and med/psych decompensation
--- NOTE | 2021-03-22 14:57 | PC.NURSE ---
Spoke with pt, his , and three of his daughters, one present in house, and two via zoom, to discuss his medication list. Family requested Flomax be discountinued due to allergy, and Bimatroprost be ordered for glaucoma. Family is requested the pt receive Alfuzosin (instead of flomax), which is not on formulary. Daughter Shanti advised, and stated the pt's will bring Alfuzosin and Bimatoprost from home for admin to the pt. Pt's family also requested POC daily, and ortho consult, orders placed for both.
--- NOTE | 2021-03-22 15:36 | PC.NURSE ---
Patient is visible in milieu during meal times and while visiting with family. Patient is isolative to bed most of the day. Patient is limited in verbal response when interacting with staff. Patient responds with shrugging shoulders and nodding head in a yes or no manner. Patient denies any SI/HI. Patient denied any pain when asked. Patient nodded yes when asked do you feel safe on the unit . Patient is guarded and withdrawn. When asked how have you been sleeping? , patient shrugged shoulders. Patient nodded head no when asked if he is experiencing any depression or anxiety. Patient is med compliant. AM blood pressure meds held due to pulse less than 60 and blood pressure of 95/90. MD was made aware. Patient did participate in a shower today.
[2021-03-22 20:55] VITALS: BP 121/69; PULSE 63; RESP 16; TEMP 36.2; O2SAT 96
[2021-03-22 21:43] VITALS: BP 121/69; PULSE 63
[2021-03-22] MEDS: amLODIPine Besylate 2.5 MG TABLET PO (21:43)
[2021-03-22] MEDS: Metoprolol Tartrate 12.5 MG HALFTAB PO (21:43)
[2021-03-22] MEDS: OLANZapine 5 MG TABLET PO (21:43)
[2021-03-22 22:09] LABS: Glucose, Whole Blood 161 mg/dL (60-115)
[2021-03-23 06:00] VITALS: BP 109/55; PULSE 69; RESP 16; TEMP 36; O2SAT 96
[2021-03-23] MEDS: Omeprazole 20 MG CAPSULE.DR PO (06:31)
--- NOTE | 2021-03-23 07:19 | P.EN_ITS ---
Event Note Date of Service: 03/23/21 Event Note: Patient seen at bedside in ED. Case and x-rays reviewed with Dr. Abisai brand. The patient has a right olecranon fracture. The patient will be maintained in a posterior splint with a sling. NWB. The patient will followup outpatient for further orthopedic treatment. There is no intervention needed at this time.
[2021-03-23 08:23] LABS: Glucose, Whole Blood 164 mg/dL (60-115)
[2021-03-23 08:40] VITALS: BP 109/55; PULSE 69
[2021-03-23] MEDS: Isosorbide Mononitrate 60 MG TAB.ER.24H PO (08:40)
[2021-03-23] MEDS: metFORMIN HCl ER 500 MG TAB.ER.24H PO (08:41)
[2021-03-23 08:42] VITALS: BP 109/55; PULSE 69
[2021-03-23] MEDS: Sulfamethox/Trimeth 800/160 TABLET 1 TAB PO ×2 (08:42→21:00)
[2021-03-23] MEDS: lamoTRIgine 25 MG TABLET PO ×2 (08:42→21:00)
[2021-03-23] MEDS: Atorvastatin Calcium 80 MG TABLET PO (08:42)
[2021-03-23] MEDS: Metoprolol Tartrate 12.5 MG HALFTAB PO ×2 (08:42→21:00)
[2021-03-23] MEDS: Finasteride 5 MG TABLET PO (08:43)
--- NOTE | 2021-03-23 15:17 | HO.PSYCHPN ---
Subjective Subjective Date of Service: 03/23/21 Reason For Visit: Depression ? OD Sub abuse Subjective Notes: Conditional Voluntary Interim History: The nursing staff reported that the patient has been isolative, able to follow directions but mostly depressed. On interview, the patient reports still racing thoughts and dysphoria. We contacted his regular psychiatrist at [facility] in telephone [phone] and we discussed the case. Her psychiatrist reported that in the past he was more active with Wellbutrin and as a mood stabilizer Zyprexa worked well for him. Orthopedic consult was asked and apparently he will have follow-up as an outpatient no need of treatment as an inpatient as per the nurse practitioner Medication Compliance: Yes Side effects from medications: No Attending Groups: Intermittent Review of Systems Acute medical concerns: No Medical Review of Systems: unchanged Review of Systems Review of Systems Yes all other systems are reviewed and are negative Mental Status Exam Mental Status Exam Patient Appearance: Well Grooomed and Unkempt Patient Orientation: Person Level of Consciousness: Awake, Disoriented and Restless Patient Behavior: Guarded, Cooperative and Passive Mood Description: Constricted Affect Description: Depressed Patient Cognition Impaired: Yes Ability to Follow Directions: Good Thought Process: Racing and Evasive Thought Content: positive for Disorganized Judgement: Fair Diagnostics Vital Signs (24Hr): Vital Signs - 24 hr 03/22/21 20:55 03/22/21 21:43 03/23/21 06:00 Temperature 97.1 F 96.8 F Pulse Rate 63 63 69 Respiratory Rate 16 16 Blood Pressure 121/69 121/69 109/55 L Pulse Oximetry 96 96 03/23/21 08:40 03/23/21 08:42 Temperature Pulse Rate 69 69 Respiratory Rate Blood Pressure 109/55 L 109/55 L Pulse Oximetry Body Mass Index 25.7 Labs Results: 03/16/21 19:42 03/16/21 16:39 Labs: Laboratory Results - last 48 hr 03/22/21 03/23/21 22:05 08:19 POC Glucose 161 H 164 H Imaging Radiology Impressions: ITS Impressions Cervical Spine CT 03/16/21 15:12 IMPRESSION: 1. No acute intracranial pathology. 2. No CT evidence of acute cervical spine fracture or traumatic subluxation 3. Irregular 1.5 cm lesion right upper lobe. This is chronic unchanged since CAT scan of December 03, 2019. Elbow X-Ray 03/16/21 15:12 IMPRESSION: Arthritis. No fracture or dislocation seen. EXAMINATION: Right elbow x-ray CLINICAL INFORMATION: Pain post fall COMPARISON: None. TECHNIQUE: 3 views of the right elbow FINDINGS: There is a comminuted displaced fracture of the olecranon. No other fracture is seen. Joint spaces are normal. There is an elbow joint effusion. There is soft tissue swelling over the fracture. IMPRESSION: Comminuted displaced fracture of the olecranon. EXAMINATION: Right shoulder x-ray CLINICAL INFORMATION: Pain post fall COMPARISON: None. TECHNIQUE: 3 views of the right shoulder FINDINGS: Bone alignment is normal. No fracture or dislocation is seen. The glenohumeral joint is normal. There is arthritis at the acromioclavicular joint. Soft tissues are unremarkable. IMPRESSION: Arthritis at the acromioclavicular joint. EXAMINATION: Chest x-ray CLINICAL INFORMATION: Pain post fall COMPARISON: Previous chest x-ray August 2016 TECHNIQUE: One view of the chest FINDINGS: The cardiac silhouette is slightly enlarged. Thoracic aorta is tortuous. The pulmonary tavon appear prominent. There is a new right subclavian dual chamber pacemaker. There is a small dense right upper lobe nodule that appears unchanged. The lungs are otherwise clear. There is no pleural effusion or pneumothorax. There are surgical clips in the left axilla. There are degenerative changes of the spine. IMPRESSION: No evidence for acute disease in the chest. Prominent pulmonary tavon questionable for enlarged pulmonary arteries versus lymphadenopathy. Head CT 03/16/21 15:12 IMPRESSION: 1. No acute intracranial pathology. 2. No CT evidence of acute cervical spine fracture or traumatic subluxation 3. Irregular 1.5 cm lesion right upper lobe. This is chronic unchanged since CAT scan of December 03, 2019. Shoulder X-Ray 03/16/21 15:12 IMPRESSION: Arthritis. No fracture or dislocation seen. EXAMINATION: Right elbow x-ray CLINICAL INFORMATION: Pain post fall COMPARISON: None. TECHNIQUE: 3 views of the right elbow FINDINGS: There is a comminuted displaced fracture of the olecranon. No other fracture is seen. Joint spaces are normal. There is an elbow joint effusion. There is soft tissue swelling over the fracture. IMPRESSION: Comminuted displaced fracture of the olecranon. EXAMINATION: Right shoulder x-ray CLINICAL INFORMATION: Pain post fall COMPARISON: None. TECHNIQUE: 3 views of the right shoulder FINDINGS: Bone alignment is normal. No fracture or dislocation is seen. The glenohumeral joint is normal. There is arthritis at the acromioclavicular joint. Soft tissues are unremarkable. IMPRESSION: Arthritis at the acromioclavicular joint. EXAMINATION: Chest x-ray CLINICAL INFORMATION: Pain post fall COMPARISON: Previous chest x-ray August 2016 TECHNIQUE: One view of the chest FINDINGS: The cardiac silhouette is slightly enlarged. Thoracic aorta is tortuous. The pulmonary tavon appear prominent. There is a new right subclavian dual chamber pacemaker. There is a small dense right upper lobe nodule that appears unchanged. The lungs are otherwise clear. There is no pleural effusion or pneumothorax. There are surgical clips in the left axilla. There are degenerative changes of the spine. IMPRESSION: No evidence for acute disease in the chest. Prominent pulmonary tavon questionable for enlarged pulmonary arteries versus lymphadenopathy. Wrist X-Ray 03/16/21 15:12 IMPRESSION: Arthritis. No fracture or dislocation seen. EXAMINATION: Right elbow x-ray CLINICAL INFORMATION: Pain post fall COMPARISON: None. TECHNIQUE: 3 views of the right elbow FINDINGS: There is a comminuted displaced fracture of the olecranon. No other fracture is seen. Joint spaces are normal. There is an elbow joint effusion. There is soft tissue swelling over the fracture. IMPRESSION: Comminuted displaced fracture of the olecranon. EXAMINATION: Right shoulder x-ray CLINICAL INFORMATION: Pain post fall COMPARISON: None. TECHNIQUE: 3 views of the right shoulder FINDINGS: Bone alignment is normal. No fracture or dislocation is seen. The glenohumeral joint is normal. There is arthritis at the acromioclavicular joint. Soft tissues are unremarkable. IMPRESSION: Arthritis at the acromioclavicular joint. EXAMINATION: Chest x-ray CLINICAL INFORMATION: Pain post fall COMPARISON: Previous chest x-ray August 2016 TECHNIQUE: One view of the chest FINDINGS: The cardiac silhouette is slightly enlarged. Thoracic aorta is tortuous. The pulmonary tavon appear prominent. There is a new right subclavian dual chamber pacemaker. There is a small dense right upper lobe nodule that appears unchanged. The lungs are otherwise clear. There is no pleural effusion or pneumothorax. There are surgical clips in the left axilla. There are degenerative changes of the spine. IMPRESSION: No evidence for acute disease in the chest. Prominent pulmonary tavon questionable for enlarged pulmonary arteries versus lymphadenopathy. Chest X-Ray 03/16/21 15:13 IMPRESSION: Arthritis. No fracture or dislocation seen. EXAMINATION: Right elbow x-ray CLINICAL INFORMATION: Pain post fall COMPARISON: None. TECHNIQUE: 3 views of the right elbow FINDINGS: There is a comminuted displaced fracture of the olecranon. No other fracture is seen. Joint spaces are normal. There is an elbow joint effusion. There is soft tissue swelling over the fracture. IMPRESSION: Comminuted displaced fracture of the olecranon. EXAMINATION: Right shoulder x-ray CLINICAL INFORMATION: Pain post fall COMPARISON: None. TECHNIQUE: 3 views of the right shoulder FINDINGS: Bone alignment is normal. No fracture or dislocation is seen. The glenohumeral joint is normal. There is arthritis at the acromioclavicular joint. Soft tissues are unremarkable. IMPRESSION: Arthritis at the acromioclavicular joint. EXAMINATION: Chest x-ray CLINICAL INFORMATION: Pain post fall COMPARISON: Previous chest x-ray August 2016 TECHNIQUE: One view of the chest FINDINGS: The cardiac silhouette is slightly enlarged. Thoracic aorta is tortuous. The pulmonary tavon appear prominent. There is a new right subclavian dual chamber pacemaker. There is a small dense right upper lobe nodule that appears unchanged. The lungs are otherwise clear. There is no pleural effusion or pneumothorax. There are surgical clips in the left axilla. There are degenerative changes of the spine. IMPRESSION: No evidence for acute disease in the chest. Prominent pulmonary tavon questionable for enlarged pulmonary arteries versus lymphadenopathy. Medications Medications Current Medications Acetaminophen (Acetaminophen 325 Mg Tablet) 650 mg PO Q6H PRN PRN Reason: Headache/Pain Mild Scale (1-3) Acetaminophen (Acetaminophen 325 Mg Tablet) 650 mg PO Q6H PRN PRN Reason: Headache/Pain Mild Scale (1-3) Al Hydroxide/Mg Hydroxide (Magnesium Hydrox/Alum Hydrox 30 Ml Oral.Susp) 30 ml PO Q6H PRN PRN Reason: Heartburn/Nausea Alendronate Sodium (Alendronate Sodium 70 Mg Tablet) 70 mg PO SA [facility] Last Admin: 03/20/21 10:56 Dose: 70 mg Documented by: Amlodipine Besylate (Amlodipine Besylate 2.5 Mg Tablet) 2.5 mg PO BEDTIME [facility]; Protocol Last Admin: 03/22/21 21:43 Dose: 2.5 mg Documented by: Atorvastatin Calcium (Atorvastatin Calcium 80 Mg Tablet) 80 mg PO DAILY [facility] Last Admin: 03/23/21 08:42 Dose: 80 mg Documented by: Finasteride (Finasteride 5 Mg Tablet) 5 mg PO DAILY [facility] Last Admin: 03/23/21 08:43 Dose: 5 mg Documented by: Hydroxyzine HCl (Hydroxyzine Hcl 25 Mg Tablet) 25 mg PO Q6H PRN PRN Reason: Anxiety Isosorbide Mononitrate (Isosorbide Mononitrate 60 Mg Tab.Er.24h) 60 mg PO DAILY [facility]; Protocol Last Admin: 03/23/21 08:40 Dose: 60 mg Documented by: Lamotrigine (Lamotrigine 25 Mg Tablet) 25 mg PO BID [facility] Last Admin: 03/23/21 08:42 Dose: 25 mg Documented by: Magnesium Hydroxide (Milk Of Magnesia 30 Ml Oral.Susp) 30 ml PO DAILY PRN PRN Reason: Constipation Magnesium Hydroxide (Milk Of Magnesia 30 Ml Oral.Susp) 30 ml PO DAILY PRN PRN Reason: Constipation Melatonin (Melatonin 3 Mg Tablet) 3 mg PO BEDTIME PRN PRN Reason: insomnia Metformin HCl (Metformin Hcl Er 500 Mg Tab.Er.24h) 500 mg PO DAILY [facility] Last Admin: 03/23/21 08:41 Dose: 500 mg Documented by: Metoprolol Tartrate (Metoprolol Tartrate 12.5 Mg Halftab) 12.5 mg PO BID [facility]; Protocol Last Admin: 03/23/21 08:42 Dose: 12.5 mg Documented by: Non-Formulary Medication (Bimatoprost) 1 drop EYE-BOTH BEDTIME [facility] Patient Own Med ( Alfuzosin Hcl Er 10mg) 1 each PO BEDTIME [facility] Last Admin: 03/22/21 22:38 Dose: 1 each Documented by: Patient Own Med ( (Lumigan 0.01% Soln)) 1 each EYE-BOTH BEDTIME [facility] Last Admin: 03/22/21 22:39 Dose: 1 each Documented by: Olanzapine (Olanzapine 5 Mg Tablet) 5 mg PO BEDTIME [facility] Last Admin: 03/22/21 21:43 Dose: 5 mg Documented by: Omeprazole (Omeprazole 20 Mg Capsule.Dr) 20 mg PO DAILY@0630 [facility] Last Admin: 03/23/21 06:31 Dose: 20 mg Documented by: Pharmacy Consult (Consult Rx Perform Med Rec) 1 each MISCELLANE ONCE PRN PRN Reason: Consult order Pharmacy Consult (Consult Rx Perform Med Rec) 1 each MISCELLANE ONCE PRN PRN Reason: Consult order Trazodone HCl (Trazodone Hcl 50 Mg Tablet) 50 mg PO BEDTIME PRN PRN Reason: Insomnia Last Admin: 03/20/21 01:20 Dose: 50 mg Documented by: Trimethoprim/Sulfamethoxazole (Sulfamethox/Trimeth 800/160 Tablet) 1 tab PO BID [facility] Last Admin: 03/23/21 08:42 Dose: 1 tab Documented by: Allergies Allergies Allergy/AdvReac Type Severity Reaction Status Date / Time metoprolol AdvReac Unknown bradycardia Verified 03/16/21 14:28 timolol AdvReac Unknown low bp Verified 03/16/21 14:28 tamsulosin [From Flomax] AdvReac Diarrhea Verified 03/22/21 13:42 beta blockers AdvReac Hypotension Uncoded 03/22/21 13:46 Assessment & Plan Assessment & Plan (1) Bipolar disorder: Status: Acute Code(s): F31.9 - Bipolar disorder, unspecified (2) Elbow fracture, right: Qualifiers: Encounter type: initial encounter Fracture type: closed Qualified Code(s): S42.401A - Unspecified fracture of lower end of right humerus, initial encounter for closed fracture Status: Acute Code(s): S42.401A - Unspecified fracture of lower end of right humerus, initial encounter for closed fracture Assessment and Plan: The patient is an elderly male with a history of bipolar disorder with good social support referred to the facility for exacerbation of mood symptoms in the context of poor compliance. Plan 1. Increase Zyprexa up to 7.5 mg p.o. q.h.s. that has been effective as per his outpatient psychiatrist. 2. Add Wellbutrin XL 150 mg tomorrow morning Greater than 50% of the session was spent on counseling and/or coordination of care Reason for contiued inpatient stay Substantial Risk for: inability to function, rapid decompensation and med/psych decompensation
[2021-03-23 18:00] VITALS: BP 108/57; PULSE 84; RESP 16; TEMP 36.1; O2SAT 96
[2021-03-23] MEDS: amLODIPine Besylate 2.5 MG TABLET PO (21:00)
[2021-03-23] MEDS: OLANZapine 7.5 MG TABLET PO (21:00)
[2021-03-23 23:26] LABS: Glucose, Whole Blood 102 mg/dL (60-115)
[2021-03-24] MEDS: Omeprazole 20 MG CAPSULE.DR PO (06:06)
[2021-03-24 08:14] VITALS: BP 109/62; PULSE 80; RESP 16; TEMP 36.2; O2SAT 95
[2021-03-24] MEDS: Finasteride 5 MG TABLET PO (08:15)
[2021-03-24] MEDS: Sulfamethox/Trimeth 800/160 TABLET 1 TAB PO (08:15)
[2021-03-24 08:16] VITALS: BP 109/62; PULSE 80
[2021-03-24] MEDS: Isosorbide Mononitrate 60 MG TAB.ER.24H PO (08:16)
[2021-03-24] MEDS: buPROPion HCl XL 150 MG TAB.ER.24H PO (08:16)
[2021-03-24] MEDS: metFORMIN HCl ER 500 MG TAB.ER.24H PO (08:16)
[2021-03-24 08:17] VITALS: BP 109/62; PULSE 80
[2021-03-24] MEDS: Atorvastatin Calcium 80 MG TABLET PO (08:17)
[2021-03-24] MEDS: Metoprolol Tartrate 12.5 MG HALFTAB PO ×2 (08:17→20:52)
[2021-03-24] MEDS: lamoTRIgine 25 MG TABLET PO ×2 (08:17→20:51)
[2021-03-24 08:23] LABS: Creatinine Clr Calc Pharmacy 49.4; Estimated Glomerular Filt Rate > 60
[2021-03-24 10:28] LABS: Glucose, Whole Blood 171 mg/dL (60-115)
--- NOTE | 2021-03-24 13:41 | HO.PSYCHPN ---
Subjective Subjective Date of Service: 03/24/21 Reason For Visit: Depression ? OD Sub abuse Subjective Notes: Conditional Voluntary Interim History: The nursing staff reported that the patient has been isolative not speaking spontaneously. He has attended a few groups with encouragement but he participates minimally. A consult to Orthopedics was done and he will be followed as an outpatient. The staff has reported that he is over sleeping. On interview, the patient denies new symptoms he denies improvement of his mood. We discussed the case and he agreed to continue taking Wellbutrin XL 150 mg daily and Zyprexa 7.5 Medication Compliance: Yes Side effects from medications: No Attending Groups: No Review of Systems Acute medical concerns: No Medical Review of Systems: unchanged Mental Status Exam Mental Status Exam Patient Appearance: Well Grooomed Patient Orientation: Person Level of Consciousness: Awake Patient Behavior: Guarded and Cooperative Mood Description: Depressed Affect Description: Constricted Patient Cognition Impaired: Yes Ability to Follow Directions: Good Speech Pattern: Clear Hallucinations: None Delusions: Not Present Thought Process: Slowed Thinking Thought Content: positive for Circumstantial and positive for Poverty of Content Judgement: Fair Diagnostics Vital Signs (24Hr): Vital Signs - 24 hr 03/23/21 18:00 03/24/21 08:14 03/24/21 08:16 Temperature 97.0 F 97.2 F Pulse Rate 84 80 80 Respiratory Rate 16 16 Blood Pressure 108/57 L 109/62 109/62 Pulse Oximetry 96 95 03/24/21 08:17 Temperature Pulse Rate 80 Respiratory Rate Blood Pressure 109/62 Pulse Oximetry Body Mass Index 25.7 Labs Results: 03/16/21 19:42 03/24/21 07:58 Labs: Laboratory Results - last 48 hr 03/22/21 03/23/21 03/23/21 22:05 08:19 23:21 Creatinine Estim Creat Clear Calc Estimated GFR POC Glucose 161 H 164 H 102 03/24/21 03/24/21 07:58 10:23 Creatinine 1.07 Estim Creat Clear Calc 49.4 Estimated GFR > 60 POC Glucose 171 H Imaging Radiology Impressions: ITS Impressions Cervical Spine CT 03/16/21 15:12 IMPRESSION: 1. No acute intracranial pathology. 2. No CT evidence of acute cervical spine fracture or traumatic subluxation 3. Irregular 1.5 cm lesion right upper lobe. This is chronic unchanged since CAT scan of December 03, 2019. Elbow X-Ray 03/16/21 15:12 IMPRESSION: Arthritis. No fracture or dislocation seen. EXAMINATION: Right elbow x-ray CLINICAL INFORMATION: Pain post fall COMPARISON: None. TECHNIQUE: 3 views of the right elbow FINDINGS: There is a comminuted displaced fracture of the olecranon. No other fracture is seen. Joint spaces are normal. There is an elbow joint effusion. There is soft tissue swelling over the fracture. IMPRESSION: Comminuted displaced fracture of the olecranon. EXAMINATION: Right shoulder x-ray CLINICAL INFORMATION: Pain post fall COMPARISON: None. TECHNIQUE: 3 views of the right shoulder FINDINGS: Bone alignment is normal. No fracture or dislocation is seen. The glenohumeral joint is normal. There is arthritis at the acromioclavicular joint. Soft tissues are unremarkable. IMPRESSION: Arthritis at the acromioclavicular joint. EXAMINATION: Chest x-ray CLINICAL INFORMATION: Pain post fall COMPARISON: Previous chest x-ray August 2016 TECHNIQUE: One view of the chest FINDINGS: The cardiac silhouette is slightly enlarged. Thoracic aorta is tortuous. The pulmonary tavon appear prominent. There is a new right subclavian dual chamber pacemaker. There is a small dense right upper lobe nodule that appears unchanged. The lungs are otherwise clear. There is no pleural effusion or pneumothorax. There are surgical clips in the left axilla. There are degenerative changes of the spine. IMPRESSION: No evidence for acute disease in the chest. Prominent pulmonary tavon questionable for enlarged pulmonary arteries versus lymphadenopathy. Head CT 03/16/21 15:12 IMPRESSION: 1. No acute intracranial pathology. 2. No CT evidence of acute cervical spine fracture or traumatic subluxation 3. Irregular 1.5 cm lesion right upper lobe. This is chronic unchanged since CAT scan of December 03, 2019. Shoulder X-Ray 03/16/21 15:12 IMPRESSION: Arthritis. No fracture or dislocation seen. EXAMINATION: Right elbow x-ray CLINICAL INFORMATION: Pain post fall COMPARISON: None. TECHNIQUE: 3 views of the right elbow FINDINGS: There is a comminuted displaced fracture of the olecranon. No other fracture is seen. Joint spaces are normal. There is an elbow joint effusion. There is soft tissue swelling over the fracture. IMPRESSION: Comminuted displaced fracture of the olecranon. EXAMINATION: Right shoulder x-ray CLINICAL INFORMATION: Pain post fall COMPARISON: None. TECHNIQUE: 3 views of the right shoulder FINDINGS: Bone alignment is normal. No fracture or dislocation is seen. The glenohumeral joint is normal. There is arthritis at the acromioclavicular joint. Soft tissues are unremarkable. IMPRESSION: Arthritis at the acromioclavicular joint. EXAMINATION: Chest x-ray CLINICAL INFORMATION: Pain post fall COMPARISON: Previous chest x-ray August 2016 TECHNIQUE: One view of the chest FINDINGS: The cardiac silhouette is slightly enlarged. Thoracic aorta is tortuous. The pulmonary tavon appear prominent. There is a new right subclavian dual chamber pacemaker. There is a small dense right upper lobe nodule that appears unchanged. The lungs are otherwise clear. There is no pleural effusion or pneumothorax. There are surgical clips in the left axilla. There are degenerative changes of the spine. IMPRESSION: No evidence for acute disease in the chest. Prominent pulmonary tavon questionable for enlarged pulmonary arteries versus lymphadenopathy. Wrist X-Ray 03/16/21 15:12 IMPRESSION: Arthritis. No fracture or dislocation seen. EXAMINATION: Right elbow x-ray CLINICAL INFORMATION: Pain post fall COMPARISON: None. TECHNIQUE: 3 views of the right elbow FINDINGS: There is a comminuted displaced fracture of the olecranon. No other fracture is seen. Joint spaces are normal. There is an elbow joint effusion. There is soft tissue swelling over the fracture. IMPRESSION: Comminuted displaced fracture of the olecranon. EXAMINATION: Right shoulder x-ray CLINICAL INFORMATION: Pain post fall COMPARISON: None. TECHNIQUE: 3 views of the right shoulder FINDINGS: Bone alignment is normal. No fracture or dislocation is seen. The glenohumeral joint is normal. There is arthritis at the acromioclavicular joint. Soft tissues are unremarkable. IMPRESSION: Arthritis at the acromioclavicular joint. EXAMINATION: Chest x-ray CLINICAL INFORMATION: Pain post fall COMPARISON: Previous chest x-ray August 2016 TECHNIQUE: One view of the chest FINDINGS: The cardiac silhouette is slightly enlarged. Thoracic aorta is tortuous. The pulmonary tavon appear prominent. There is a new right subclavian dual chamber pacemaker. There is a small dense right upper lobe nodule that appears unchanged. The lungs are otherwise clear. There is no pleural effusion or pneumothorax. There are surgical clips in the left axilla. There are degenerative changes of the spine. IMPRESSION: No evidence for acute disease in the chest. Prominent pulmonary tavon questionable for enlarged pulmonary arteries versus lymphadenopathy. Chest X-Ray 03/16/21 15:13 IMPRESSION: Arthritis. No fracture or dislocation seen. EXAMINATION: Right elbow x-ray CLINICAL INFORMATION: Pain post fall COMPARISON: None. TECHNIQUE: 3 views of the right elbow FINDINGS: There is a comminuted displaced fracture of the olecranon. No other fracture is seen. Joint spaces are normal. There is an elbow joint effusion. There is soft tissue swelling over the fracture. IMPRESSION: Comminuted displaced fracture of the olecranon. EXAMINATION: Right shoulder x-ray CLINICAL INFORMATION: Pain post fall COMPARISON: None. TECHNIQUE: 3 views of the right shoulder FINDINGS: Bone alignment is normal. No fracture or dislocation is seen. The glenohumeral joint is normal. There is arthritis at the acromioclavicular joint. Soft tissues are unremarkable. IMPRESSION: Arthritis at the acromioclavicular joint. EXAMINATION: Chest x-ray CLINICAL INFORMATION: Pain post fall COMPARISON: Previous chest x-ray August 2016 TECHNIQUE: One view of the chest FINDINGS: The cardiac silhouette is slightly enlarged. Thoracic aorta is tortuous. The pulmonary tavon appear prominent. There is a new right subclavian dual chamber pacemaker. There is a small dense right upper lobe nodule that appears unchanged. The lungs are otherwise clear. There is no pleural effusion or pneumothorax. There are surgical clips in the left axilla. There are degenerative changes of the spine. IMPRESSION: No evidence for acute disease in the chest. Prominent pulmonary tavon questionable for enlarged pulmonary arteries versus lymphadenopathy. Medications Medications Current Medications Acetaminophen (Acetaminophen 325 Mg Tablet) 650 mg PO Q6H PRN PRN Reason: Headache/Pain Mild Scale (1-3) Acetaminophen (Acetaminophen 325 Mg Tablet) 650 mg PO Q6H PRN PRN Reason: Headache/Pain Mild Scale (1-3) Al Hydroxide/Mg Hydroxide (Magnesium Hydrox/Alum Hydrox 30 Ml Oral.Susp) 30 ml PO Q6H PRN PRN Reason: Heartburn/Nausea Alendronate Sodium (Alendronate Sodium 70 Mg Tablet) 70 mg PO SA [facility] Last Admin: 03/20/21 10:56 Dose: 70 mg Documented by: Amlodipine Besylate (Amlodipine Besylate 2.5 Mg Tablet) 2.5 mg PO BEDTIME [facility]; Protocol Last Admin: 03/23/21 21:00 Dose: 2.5 mg Documented by: Atorvastatin Calcium (Atorvastatin Calcium 80 Mg Tablet) 80 mg PO DAILY [facility] Last Admin: 03/24/21 08:17 Dose: 80 mg Documented by: Bupropion HCl (Bupropion Hcl Xl 150 Mg Tab.Er.24h) 150 mg PO DAILY [facility] Last Admin: 03/24/21 08:16 Dose: 150 mg Documented by: Finasteride (Finasteride 5 Mg Tablet) 5 mg PO DAILY [facility] Last Admin: 03/24/21 08:15 Dose: 5 mg Documented by: Hydroxyzine HCl (Hydroxyzine Hcl 25 Mg Tablet) 25 mg PO Q6H PRN PRN Reason: Anxiety Isosorbide Mononitrate (Isosorbide Mononitrate 60 Mg Tab.Er.24h) 60 mg PO DAILY [facility]; Protocol Last Admin: 03/24/21 08:16 Dose: 60 mg Documented by: Lamotrigine (Lamotrigine 25 Mg Tablet) 25 mg PO BID [facility] Last Admin: 03/24/21 08:17 Dose: 25 mg Documented by: Magnesium Hydroxide (Milk Of Magnesia 30 Ml Oral.Susp) 30 ml PO DAILY PRN PRN Reason: Constipation Magnesium Hydroxide (Milk Of Magnesia 30 Ml Oral.Susp) 30 ml PO DAILY PRN PRN Reason: Constipation Melatonin (Melatonin 3 Mg Tablet) 3 mg PO BEDTIME PRN PRN Reason: insomnia Metformin HCl (Metformin Hcl Er 500 Mg Tab.Er.24h) 500 mg PO DAILY [facility] Last Admin: 03/24/21 08:16 Dose: 500 mg Documented by: Metoprolol Tartrate (Metoprolol Tartrate 12.5 Mg Halftab) 12.5 mg PO BID [facility]; Protocol Last Admin: 03/24/21 08:17 Dose: 12.5 mg Documented by: Non-Formulary Medication (Bimatoprost) 1 drop EYE-BOTH BEDTIME [facility] Patient Own Med ( Alfuzosin Hcl Er 10mg) 1 each PO BEDTIME [facility] Last Admin: 03/23/21 21:00 Dose: 1 each Documented by: Patient Own Med ( (Lumigan 0.01% Soln)) 1 each EYE-BOTH BEDTIME [facility] Last Admin: 03/23/21 21:01 Dose: 1 each Documented by: Olanzapine (Olanzapine 7.5 Mg Tablet) 7.5 mg PO BEDTIME [facility] Last Admin: 03/23/21 21:00 Dose: 7.5 mg Documented by: Omeprazole (Omeprazole 20 Mg Capsule.) 20 mg PO DAILY@0630 [facility] Last Admin: 03/24/21 06:06 Dose: 20 mg Documented by: Pharmacy Consult (Consult Rx Perform Med Rec) 1 each MISCELLANE ONCE PRN PRN Reason: Consult order Pharmacy Consult (Consult Rx Perform Med Rec) 1 each MISCELLANE ONCE PRN PRN Reason: Consult order Trazodone HCl (Trazodone Hcl 50 Mg Tablet) 50 mg PO BEDTIME PRN PRN Reason: Insomnia Last Admin: 03/20/21 01:20 Dose: 50 mg Documented by: Allergies Allergies Allergy/AdvReac Type Severity Reaction Status Date / Time metoprolol AdvReac Unknown bradycardia Verified 03/16/21 14:28 timolol AdvReac Unknown low bp Verified 03/16/21 14:28 tamsulosin [From Flomax] AdvReac Diarrhea Verified 03/22/21 13:42 beta blockers AdvReac Hypotension Uncoded 03/22/21 13:46 Assessment & Plan Assessment & Plan (1) Bipolar disorder: Status: Acute Code(s): F31.9 - Bipolar disorder, unspecified (2) Elbow fracture, right: Qualifiers: Encounter type: initial encounter Fracture type: closed Qualified Code(s): S42.401A - Unspecified fracture of lower end of right humerus, initial encounter for closed fracture Status: Acute Code(s): S42.401A - Unspecified fracture of lower end of right humerus, initial encounter for closed fracture Assessment and Plan: The patient is an elderly male with a history of bipolar disorder with good social support referred to the facility for exacerbation of mood symptoms in the context of poor compliance. Plan 1. Keep same treatment Greater than 50% of the session was spent on counseling and/or coordination of care Reason for contiued inpatient stay Substantial Risk for: inability to function, rapid decompensation and med/psych decompensation
--- NOTE | 2021-03-24 15:37 | MHC.CLN ---
F/U PATIENT WITH CAST ON RIGHT ARM. WOUND NURSE TO SEE FOR SKIN EVALUATION. FOLLOW RESULTS OF SKIN ASSESSMENT.
[2021-03-24 20:47] VITALS: BP 128/75; PULSE 73; RESP 17; TEMP 36.2; O2SAT 96
[2021-03-24 20:52] VITALS: BP 128/75; PULSE 73
[2021-03-24 20:58] VITALS: BP 128/75; PULSE 73
[2021-03-24] MEDS: amLODIPine Besylate 2.5 MG TABLET PO (20:58)
[2021-03-24] MEDS: OLANZapine 7.5 MG TABLET PO (20:58)
[2021-03-24 21:12] LABS: Glucose, Whole Blood 150 mg/dL (60-115)
[2021-03-25 06:00] VITALS: BP 134/78; PULSE 77; RESP 18; TEMP 36.5; O2SAT 95
[2021-03-25] MEDS: Omeprazole 20 MG CAPSULE.DR PO (06:08)
[2021-03-25 07:00] VITALS: BMI 25.0
[2021-03-25] MEDS: metFORMIN HCl ER 500 MG TAB.ER.24H PO (08:26)
[2021-03-25 08:27] VITALS: BP 134/78; PULSE 77
[2021-03-25] MEDS: lamoTRIgine 25 MG TABLET PO ×2 (08:27→21:05)
[2021-03-25] MEDS: Isosorbide Mononitrate 60 MG TAB.ER.24H PO (08:27)
[2021-03-25] MEDS: buPROPion HCl XL 150 MG TAB.ER.24H PO (08:28)
[2021-03-25] MEDS: Atorvastatin Calcium 80 MG TABLET PO (08:28)
[2021-03-25 08:29] VITALS: BP 134/78; PULSE 77
[2021-03-25] MEDS: Finasteride 5 MG TABLET PO (08:29)
[2021-03-25] MEDS: Metoprolol Tartrate 12.5 MG HALFTAB PO ×2 (08:29→21:05)
[2021-03-25 10:12] LABS: Glucose, Whole Blood 265 mg/dL (60-115)
--- NOTE | 2021-03-25 11:11 | P.PNPSI_ITS ---
Subjective Subjective Date of Service: 03/25/21 Reason For Visit: Depression ? OD Sub abuse Subjective Notes: Conditional Voluntary Interim History: The nursing staff reports the patient isn't in more active especially in the afternoon but yesterday in the morning he was very sleepy and probably over sedated. Today on interview, the patient reported that he is the same no changes on his mental status he did not look over sedated Review of Systems Acute medical concerns: No Medical Review of Systems: unchanged Mental Status Exam Mental Status Exam Patient Appearance: Well Grooomed Patient Orientation: Person Level of Consciousness: Awake Patient Behavior: Guarded and Passive Mood Description: Constricted Affect Description: Depressed Patient Cognition Impaired: Yes Ability to Follow Directions: Good Speech Pattern: Clear Memory Description: Intact Hallucinations: None Thought Process: Intact Thought Content: positive for Circumstantial and positive for Poverty of Content Judgement: Fair Diagnostics Vital Signs (24Hr): Vital Signs - 24 hr 03/24/21 20:47 03/24/21 20:52 03/24/21 20:58 Temperature 97.2 F Pulse Rate 73 73 73 Respiratory Rate 17 Blood Pressure 128/75 128/75 128/75 Pulse Oximetry 96 03/25/21 06:00 03/25/21 08:27 03/25/21 08:29 Temperature 97.7 F Pulse Rate 77 77 77 Respiratory Rate 18 Blood Pressure 134/78 134/78 134/78 Pulse Oximetry 95 Body Mass Index 25.7 Labs Results: 03/16/21 19:42 03/24/21 07:58 Labs: Laboratory Results - last 48 hr 03/23/21 03/24/21 03/24/21 23:21 07:58 10:23 Creatinine 1.07 Estim Creat Clear Calc 49.4 Estimated GFR > 60 POC Glucose 102 171 H 03/24/21 03/25/21 21:07 10:07 Creatinine Estim Creat Clear Calc Estimated GFR POC Glucose 150 H 265 H Imaging Radiology Impressions: ITS Impressions Cervical Spine CT 03/16/21 15:12 IMPRESSION: 1. No acute intracranial pathology. 2. No CT evidence of acute cervical spine fracture or traumatic subluxation 3. Irregular 1.5 cm lesion right upper lobe. This is chronic unchanged since CAT scan of December 03, 2019. Elbow X-Ray 03/16/21 15:12 IMPRESSION: Arthritis. No fracture or dislocation seen. EXAMINATION: Right elbow x-ray CLINICAL INFORMATION: Pain post fall COMPARISON: None. TECHNIQUE: 3 views of the right elbow FINDINGS: There is a comminuted displaced fracture of the olecranon. No other fracture is seen. Joint spaces are normal. There is an elbow joint effusion. There is soft tissue swelling over the fracture. IMPRESSION: Comminuted displaced fracture of the olecranon. EXAMINATION: Right shoulder x-ray CLINICAL INFORMATION: Pain post fall COMPARISON: None. TECHNIQUE: 3 views of the right shoulder FINDINGS: Bone alignment is normal. No fracture or dislocation is seen. The glenohumeral joint is normal. There is arthritis at the acromioclavicular joint. Soft tissues are unremarkable. IMPRESSION: Arthritis at the acromioclavicular joint. EXAMINATION: Chest x-ray CLINICAL INFORMATION: Pain post fall COMPARISON: Previous chest x-ray August 2016 TECHNIQUE: One view of the chest FINDINGS: The cardiac silhouette is slightly enlarged. Thoracic aorta is tortuous. The pulmonary tavon appear prominent. There is a new right subclavian dual chamber pacemaker. There is a small dense right upper lobe nodule that appears unchanged. The lungs are otherwise clear. There is no pleural effusion or pneumothorax. There are surgical clips in the left axilla. There are degenerative changes of the spine. IMPRESSION: No evidence for acute disease in the chest. Prominent pulmonary tavon questionable for enlarged pulmonary arteries versus lymphadenopathy. Head CT 03/16/21 15:12 IMPRESSION: 1. No acute intracranial pathology. 2. No CT evidence of acute cervical spine fracture or traumatic subluxation 3. Irregular 1.5 cm lesion right upper lobe. This is chronic unchanged since CAT scan of December 03, 2019. Shoulder X-Ray 03/16/21 15:12 IMPRESSION: Arthritis. No fracture or dislocation seen. EXAMINATION: Right elbow x-ray CLINICAL INFORMATION: Pain post fall COMPARISON: None. TECHNIQUE: 3 views of the right elbow FINDINGS: There is a comminuted displaced fracture of the olecranon. No other fracture is seen. Joint spaces are normal. There is an elbow joint effusion. There is soft tissue swelling over the fracture. IMPRESSION: Comminuted displaced fracture of the olecranon. EXAMINATION: Right shoulder x-ray CLINICAL INFORMATION: Pain post fall COMPARISON: None. TECHNIQUE: 3 views of the right shoulder FINDINGS: Bone alignment is normal. No fracture or dislocation is seen. The glenohumeral joint is normal. There is arthritis at the acromioclavicular joint. Soft tissues are unremarkable. IMPRESSION: Arthritis at the acromioclavicular joint. EXAMINATION: Chest x-ray CLINICAL INFORMATION: Pain post fall COMPARISON: Previous chest x-ray August 2016 TECHNIQUE: One view of the chest FINDINGS: The cardiac silhouette is slightly enlarged. Thoracic aorta is tortuous. The pulmonary tavon appear prominent. There is a new right subclavian dual chamber pacemaker. There is a small dense right upper lobe nodule that appears unchanged. The lungs are otherwise clear. There is no pleural effusion or pneumothorax. There are surgical clips in the left axilla. There are degenerative changes of the spine. IMPRESSION: No evidence for acute disease in the chest. Prominent pulmonary tavon questionable for enlarged pulmonary arteries versus lymphadenopathy. Wrist X-Ray 03/16/21 15:12 IMPRESSION: Arthritis. No fracture or dislocation seen. EXAMINATION: Right elbow x-ray CLINICAL INFORMATION: Pain post fall COMPARISON: None. TECHNIQUE: 3 views of the right elbow FINDINGS: There is a comminuted displaced fracture of the olecranon. No other fracture is seen. Joint spaces are normal. There is an elbow joint effusion. There is soft tissue swelling over the fracture. IMPRESSION: Comminuted displaced fracture of the olecranon. EXAMINATION: Right shoulder x-ray CLINICAL INFORMATION: Pain post fall COMPARISON: None. TECHNIQUE: 3 views of the right shoulder FINDINGS: Bone alignment is normal. No fracture or dislocation is seen. The glenohumeral joint is normal. There is arthritis at the acromioclavicular joint. Soft tissues are unremarkable. IMPRESSION: Arthritis at the acromioclavicular joint. EXAMINATION: Chest x-ray CLINICAL INFORMATION: Pain post fall COMPARISON: Previous chest x-ray August 2016 TECHNIQUE: One view of the chest FINDINGS: The cardiac silhouette is slightly enlarged. Thoracic aorta is tortuous. The pulmonary tavon appear prominent. There is a new right subclavian dual chamber pacemaker. There is a small dense right upper lobe nodule that appears unchanged. The lungs are otherwise clear. There is no pleural effusion or pneumothorax. There are surgical clips in the left axilla. There are degenerative changes of the spine. IMPRESSION: No evidence for acute disease in the chest. Prominent pulmonary tavon questionable for enlarged pulmonary arteries versus lymphadenopathy. Chest X-Ray 03/16/21 15:13 IMPRESSION: Arthritis. No fracture or dislocation seen. EXAMINATION: Right elbow x-ray CLINICAL INFORMATION: Pain post fall COMPARISON: None. TECHNIQUE: 3 views of the right elbow FINDINGS: There is a comminuted displaced fracture of the olecranon. No other fracture is seen. Joint spaces are normal. There is an elbow joint effusion. There is soft tissue swelling over the fracture. IMPRESSION: Comminuted displaced fracture of the olecranon. EXAMINATION: Right shoulder x-ray CLINICAL INFORMATION: Pain post fall COMPARISON: None. TECHNIQUE: 3 views of the right shoulder FINDINGS: Bone alignment is normal. No fracture or dislocation is seen. The glenohumeral joint is normal. There is arthritis at the acromioclavicular joint. Soft tissues are unremarkable. IMPRESSION: Arthritis at the acromioclavicular joint. EXAMINATION: Chest x-ray CLINICAL INFORMATION: Pain post fall COMPARISON: Previous chest x-ray August 2016 TECHNIQUE: One view of the chest FINDINGS: The cardiac silhouette is slightly enlarged. Thoracic aorta is tortuous. The pulmonary tavon appear prominent. There is a new right subclavian dual chamber pacemaker. There is a small dense right upper lobe nodule that appears unchanged. The lungs are otherwise clear. There is no pleural effusion or pneumothorax. There are surgical clips in the left axilla. There are degenerative changes of the spine. IMPRESSION: No evidence for acute disease in the chest. Prominent pulmonary tavon questionable for enlarged pulmonary arteries versus lymphadenopathy. Medications Medications Current Medications Acetaminophen (Acetaminophen 325 Mg Tablet) 650 mg PO Q6H PRN PRN Reason: Headache/Pain Mild Scale (1-3) Acetaminophen (Acetaminophen 325 Mg Tablet) 650 mg PO Q6H PRN PRN Reason: Headache/Pain Mild Scale (1-3) Al Hydroxide/Mg Hydroxide (Magnesium Hydrox/Alum Hydrox 30 Ml Oral.Susp) 30 ml PO Q6H PRN PRN Reason: Heartburn/Nausea Alendronate Sodium (Alendronate Sodium 70 Mg Tablet) 70 mg PO SA [facility] Last Admin: 03/20/21 10:56 Dose: 70 mg Documented by: Amlodipine Besylate (Amlodipine Besylate 2.5 Mg Tablet) 2.5 mg PO BEDTIME [facility]; Protocol Last Admin: 03/24/21 20:58 Dose: 2.5 mg Documented by: Atorvastatin Calcium (Atorvastatin Calcium 80 Mg Tablet) 80 mg PO DAILY [facility] Last Admin: 03/25/21 08:28 Dose: 80 mg Documented by: Bupropion HCl (Bupropion Hcl Xl 150 Mg Tab.Er.24h) 150 mg PO DAILY [facility] Last Admin: 03/25/21 08:28 Dose: 150 mg Documented by: Finasteride (Finasteride 5 Mg Tablet) 5 mg PO DAILY [facility] Last Admin: 03/25/21 08:29 Dose: 5 mg Documented by: Hydroxyzine HCl (Hydroxyzine Hcl 25 Mg Tablet) 25 mg PO Q6H PRN PRN Reason: Anxiety Isosorbide Mononitrate (Isosorbide Mononitrate 60 Mg Tab.Er.24h) 60 mg PO DAILY [facility]; Protocol Last Admin: 03/25/21 08:27 Dose: 60 mg Documented by: Lamotrigine (Lamotrigine 25 Mg Tablet) 25 mg PO BID [facility] Last Admin: 03/25/21 08:27 Dose: 25 mg Documented by: Magnesium Hydroxide (Milk Of Magnesia 30 Ml Oral.Susp) 30 ml PO DAILY PRN PRN Reason: Constipation Magnesium Hydroxide (Milk Of Magnesia 30 Ml Oral.Susp) 30 ml PO DAILY PRN PRN Reason: Constipation Melatonin (Melatonin 3 Mg Tablet) 3 mg PO BEDTIME PRN PRN Reason: insomnia Metformin HCl (Metformin Hcl Er 500 Mg Tab.Er.24h) 500 mg PO DAILY [facility] Last Admin: 03/25/21 08:26 Dose: 500 mg Documented by: Metoprolol Tartrate (Metoprolol Tartrate 12.5 Mg Halftab) 12.5 mg PO BID [facility]; Protocol Last Admin: 03/25/21 08:29 Dose: 12.5 mg Documented by: Patient Own Med ( Alfuzosin Hcl Er 10mg) 1 each PO BEDTIME [facility] Last Admin: 03/24/21 20:58 Dose: 1 each Documented by: Patient Own Med ( (Lumigan 0.01% Soln)) 1 each EYE-BOTH BEDTIME [facility] Last Admin: 03/24/21 20:59 Dose: 1 each Documented by: Olanzapine (Olanzapine 7.5 Mg Tablet) 7.5 mg PO BEDTIME [facility] Last Admin: 03/24/21 20:58 Dose: 7.5 mg Documented by: Omeprazole (Omeprazole 20 Mg Capsule.Dr) 20 mg PO DAILY@0630 [facility] Last Admin: 03/25/21 06:08 Dose: 20 mg Documented by: Pharmacy Consult (Consult Rx Perform Med Rec) 1 each MISCELLANE ONCE PRN PRN Reason: Consult order Pharmacy Consult (Consult Rx Perform Med Rec) 1 each MISCELLANE ONCE PRN PRN Reason: Consult order Trazodone HCl (Trazodone Hcl 50 Mg Tablet) 50 mg PO BEDTIME PRN PRN Reason: Insomnia Last Admin: 03/20/21 01:20 Dose: 50 mg Documented by: Allergies Allergies Allergy/AdvReac Type Severity Reaction Status Date / Time metoprolol AdvReac Unknown bradycardia Verified 03/16/21 14:28 timolol AdvReac Unknown low bp Verified 03/16/21 14:28 tamsulosin [From Flomax] AdvReac Diarrhea Verified 03/22/21 13:42 beta blockers AdvReac Hypotension Uncoded 03/22/21 13:46 Assessment & Plan Assessment & Plan (1) Bipolar disorder: Status: Acute Code(s): F31.9 - Bipolar disorder, unspecified (2) Elbow fracture, right: Qualifiers: Encounter type: initial encounter Fracture type: closed Qualified Code(s): S42.401A - Unspecified fracture of lower end of right humerus, initial encounter for closed fracture Status: Acute Code(s): S42.401A - Unspecified fracture of lower end of right humerus, initial encounter for closed fracture Assessment and Plan: The patient is an elderly male with a history of bipolar disorder with good social support referred to the facility for exacerbation of mood symptoms in the context of poor compliance. Plan 1. Keep same treatment, reassess Zyprexa 7.5 if he is over-sedated in the morning. We will continue with Wellbutrin XL. 2. X-ray of the fracture. Greater than 50% of the session was spent on counseling and/or coordination of care Reason for contiued inpatient stay Substantial Risk for: inability to function, rapid decompensation and med/psych decompensation
[2021-03-25 18:00] VITALS: BP 117/68; PULSE 57; RESP 16; TEMP 36; O2SAT 98
[2021-03-25 21:04] VITALS: BP 135/74; PULSE 75
[2021-03-25] MEDS: amLODIPine Besylate 2.5 MG TABLET PO (21:04)
[2021-03-25] MEDS: OLANZapine 7.5 MG TABLET PO (21:06)
[2021-03-25 21:13] LABS: Glucose, Whole Blood 134 mg/dL (60-115)
[2021-03-26 06:00] VITALS: BP 106/58; PULSE 70; TEMP 35.9; O2SAT 95
[2021-03-26] MEDS: Omeprazole 20 MG CAPSULE.DR PO (06:42)
--- NOTE | 2021-03-26 09:03 | MHC.CLN ---
F/U REVIEWED WOUND ASSESSMENT WITH SKIN TEAR AND 2 ABRASIONS TO RIGHT ARM. NO PRESSURE INJURY. WEIGHT LOSS 3% X 1 WEEK. ADDED GLUCERNA BID TO PROVIDE 474 KCAL, 20 G PROTEIN. DX DM AND THERAPEUTIC DIET APPROPRIATE.
[2021-03-26 09:41] VITALS: BP 106/58; PULSE 70
[2021-03-26] MEDS: Metoprolol Tartrate 12.5 MG HALFTAB PO ×2 (09:41→20:29)
[2021-03-26] MEDS: Finasteride 5 MG TABLET PO (09:41)
[2021-03-26 09:42] VITALS: BP 106/58; PULSE 70
[2021-03-26] MEDS: Atorvastatin Calcium 80 MG TABLET PO (09:42)
[2021-03-26] MEDS: buPROPion HCl XL 150 MG TAB.ER.24H PO (09:42)
[2021-03-26] MEDS: Isosorbide Mononitrate 60 MG TAB.ER.24H PO (09:42)
[2021-03-26] MEDS: lamoTRIgine 25 MG TABLET PO ×2 (09:42→20:30)
[2021-03-26] MEDS: metFORMIN HCl ER 500 MG TAB.ER.24H PO (09:42)
[2021-03-26 18:00] VITALS: BP 119/71; PULSE 65; RESP 18; TEMP 36.3; O2SAT 96
[2021-03-26 20:29] VITALS: BP 119/71; PULSE 65
[2021-03-26] MEDS: OLANZapine 7.5 MG TABLET PO (20:29)
[2021-03-26 20:30] VITALS: BP 119/71; PULSE 65
[2021-03-26] MEDS: amLODIPine Besylate 2.5 MG TABLET PO (20:30)
--- NOTE | 2021-03-26 21:12 | P.PNPSI_ITS ---
Subjective Subjective Date of Service: 03/26/21 Reason For Visit: Depression ? OD Sub abuse Interim History: Patient withdrawn mostly in his room has difficulty expressing himself Medication Compliance: Yes Attending Groups: No Mental Status Exam Mental Status Exam Narrative: Patient had a difficult time expressing his feeling state denied any active thoughts of self-harm Patient Appearance: Fatigued and Disheveled Patient Orientation: Person and Situation Level of Consciousness: Awake Patient Behavior: Guarded and Passive Mood Description: Constricted Affect Description: Depressed Patient Cognition Impaired: Yes Ability to Follow Directions: Good Speech Pattern: Clear Memory Description: Intact Hallucinations: None Thought Process: Intact Thought Content: positive for Circumstantial and positive for Poverty of Content Judgement: Fair Diagnostics Vital Signs (24Hr): Vital Signs - 24 hr 03/26/21 06:00 03/26/21 09:41 03/26/21 09:42 Temperature 96.7 F L Pulse Rate 70 70 70 Respiratory Rate Blood Pressure 106/58 L 106/58 L 106/58 L Pulse Oximetry 95 03/26/21 18:00 03/26/21 20:29 03/26/21 20:30 Temperature 97.4 F Pulse Rate 65 65 65 Respiratory Rate 18 Blood Pressure 119/71 119/71 119/71 Pulse Oximetry 96 Body Mass Index 25.0 Labs Results: 03/16/21 19:42 03/24/21 07:58 Labs: Laboratory Results - last 48 hr 03/24/21 03/25/21 03/25/21 21:07 10:07 21:03 POC Glucose 150 H 265 H 134 H Imaging Radiology Impressions: ITS Impressions Cervical Spine CT 03/16/21 15:12 IMPRESSION: 1. No acute intracranial pathology. 2. No CT evidence of acute cervical spine fracture or traumatic subluxation 3. Irregular 1.5 cm lesion right upper lobe. This is chronic unchanged since CAT scan of December 03, 2019. Elbow X-Ray 03/16/21 15:12 IMPRESSION: Arthritis. No fracture or dislocation seen. EXAMINATION: Right elbow x-ray CLINICAL INFORMATION: Pain post fall COMPARISON: None. TECHNIQUE: 3 views of the right elbow FINDINGS: There is a comminuted displaced fracture of the olecranon. No other fracture is seen. Joint spaces are normal. There is an elbow joint effusion. There is soft tissue swelling over the fracture. IMPRESSION: Comminuted displaced fracture of the olecranon. EXAMINATION: Right shoulder x-ray CLINICAL INFORMATION: Pain post fall COMPARISON: None. TECHNIQUE: 3 views of the right shoulder FINDINGS: Bone alignment is normal. No fracture or dislocation is seen. The glenohumeral joint is normal. There is arthritis at the acromioclavicular joint. Soft tissues are unremarkable. IMPRESSION: Arthritis at the acromioclavicular joint. EXAMINATION: Chest x-ray CLINICAL INFORMATION: Pain post fall COMPARISON: Previous chest x-ray August 2016 TECHNIQUE: One view of the chest FINDINGS: The cardiac silhouette is slightly enlarged. Thoracic aorta is tortuous. The pulmonary tavon appear prominent. There is a new right subclavian dual chamber pacemaker. There is a small dense right upper lobe nodule that appears unchanged. The lungs are otherwise clear. There is no pleural effusion or pneumothorax. There are surgical clips in the left axilla. There are degenerative changes of the spine. IMPRESSION: No evidence for acute disease in the chest. Prominent pulmonary tavon questionable for enlarged pulmonary arteries versus lymphadenopathy. Head CT 03/16/21 15:12 IMPRESSION: 1. No acute intracranial pathology. 2. No CT evidence of acute cervical spine fracture or traumatic subluxation 3. Irregular 1.5 cm lesion right upper lobe. This is chronic unchanged since CAT scan of December 03, 2019. Shoulder X-Ray 03/16/21 15:12 IMPRESSION: Arthritis. No fracture or dislocation seen. EXAMINATION: Right elbow x-ray CLINICAL INFORMATION: Pain post fall COMPARISON: None. TECHNIQUE: 3 views of the right elbow FINDINGS: There is a comminuted displaced fracture of the olecranon. No other fracture is seen. Joint spaces are normal. There is an elbow joint effusion. There is soft tissue swelling over the fracture. IMPRESSION: Comminuted displaced fracture of the olecranon. EXAMINATION: Right shoulder x-ray CLINICAL INFORMATION: Pain post fall COMPARISON: None. TECHNIQUE: 3 views of the right shoulder FINDINGS: Bone alignment is normal. No fracture or dislocation is seen. The glenohumeral joint is normal. There is arthritis at the acromioclavicular joint. Soft tissues are unremarkable. IMPRESSION: Arthritis at the acromioclavicular joint. EXAMINATION: Chest x-ray CLINICAL INFORMATION: Pain post fall COMPARISON: Previous chest x-ray August 2016 TECHNIQUE: One view of the chest FINDINGS: The cardiac silhouette is slightly enlarged. Thoracic aorta is tortuous. The pulmonary tavon appear prominent. There is a new right subclavian dual chamber pacemaker. There is a small dense right upper lobe nodule that appears unchanged. The lungs are otherwise clear. There is no pleural effusion or pneumothorax. There are surgical clips in the left axilla. There are degenerative changes of the spine. IMPRESSION: No evidence for acute disease in the chest. Prominent pulmonary tavon questionable for enlarged pulmonary arteries versus lymphadenopathy. Wrist X-Ray 03/16/21 15:12 IMPRESSION: Arthritis. No fracture or dislocation seen. EXAMINATION: Right elbow x-ray CLINICAL INFORMATION: Pain post fall COMPARISON: None. TECHNIQUE: 3 views of the right elbow FINDINGS: There is a comminuted displaced fracture of the olecranon. No other fracture is seen. Joint spaces are normal. There is an elbow joint effusion. There is soft tissue swelling over the fracture. IMPRESSION: Comminuted displaced fracture of the olecranon. EXAMINATION: Right shoulder x-ray CLINICAL INFORMATION: Pain post fall COMPARISON: None. TECHNIQUE: 3 views of the right shoulder FINDINGS: Bone alignment is normal. No fracture or dislocation is seen. The glenohumeral joint is normal. There is arthritis at the acromioclavicular joint. Soft tissues are unremarkable. IMPRESSION: Arthritis at the acromioclavicular joint. EXAMINATION: Chest x-ray CLINICAL INFORMATION: Pain post fall COMPARISON: Previous chest x-ray August 2016 TECHNIQUE: One view of the chest FINDINGS: The cardiac silhouette is slightly enlarged. Thoracic aorta is tortuous. The pulmonary tavon appear prominent. There is a new right subclavian dual chamber pacemaker. There is a small dense right upper lobe nodule that appears unchanged. The lungs are otherwise clear. There is no pleural effusion or pneumothorax. There are surgical clips in the left axilla. There are degenerative changes of the spine. IMPRESSION: No evidence for acute disease in the chest. Prominent pulmonary tavon questionable for enlarged pulmonary arteries versus lymphadenopathy. Chest X-Ray 03/16/21 15:13 IMPRESSION: Arthritis. No fracture or dislocation seen. EXAMINATION: Right elbow x-ray CLINICAL INFORMATION: Pain post fall COMPARISON: None. TECHNIQUE: 3 views of the right elbow FINDINGS: There is a comminuted displaced fracture of the olecranon. No other fracture is seen. Joint spaces are normal. There is an elbow joint effusion. There is soft tissue swelling over the fracture. IMPRESSION: Comminuted displaced fracture of the olecranon. EXAMINATION: Right shoulder x-ray CLINICAL INFORMATION: Pain post fall COMPARISON: None. TECHNIQUE: 3 views of the right shoulder FINDINGS: Bone alignment is normal. No fracture or dislocation is seen. The glenohumeral joint is normal. There is arthritis at the acromioclavicular joint. Soft tissues are unremarkable. IMPRESSION: Arthritis at the acromioclavicular joint. EXAMINATION: Chest x-ray CLINICAL INFORMATION: Pain post fall COMPARISON: Previous chest x-ray August 2016 TECHNIQUE: One view of the chest FINDINGS: The cardiac silhouette is slightly enlarged. Thoracic aorta is tortuous. The pulmonary tavon appear prominent. There is a new right subclavian dual chamber pacemaker. There is a small dense right upper lobe nodule that appears unchanged. The lungs are otherwise clear. There is no pleural effusion or pneumothorax. There are surgical clips in the left axilla. There are degenerative changes of the spine. IMPRESSION: No evidence for acute disease in the chest. Prominent pulmonary tavon questionable for enlarged pulmonary arteries versus lymphadenopathy. Elbow X-Ray 03/25/21 14:11 IMPRESSION: No change in the comminuted displaced olecranon fracture. Medications Medications Current Medications Acetaminophen (Acetaminophen 325 Mg Tablet) 650 mg PO Q6H PRN PRN Reason: Headache/Pain Mild Scale (1-3) Acetaminophen (Acetaminophen 325 Mg Tablet) 650 mg PO Q6H PRN PRN Reason: Headache/Pain Mild Scale (1-3) Al Hydroxide/Mg Hydroxide (Magnesium Hydrox/Alum Hydrox 30 Ml Oral.Susp) 30 ml PO Q6H PRN PRN Reason: Heartburn/Nausea Alendronate Sodium (Alendronate Sodium 70 Mg Tablet) 70 mg PO SA [facility] Last Admin: 03/20/21 10:56 Dose: 70 mg Documented by: Amlodipine Besylate (Amlodipine Besylate 2.5 Mg Tablet) 2.5 mg PO BEDTIME [facility]; Protocol Last Admin: 03/26/21 20:30 Dose: 2.5 mg Documented by: Atorvastatin Calcium (Atorvastatin Calcium 80 Mg Tablet) 80 mg PO DAILY [facility] Last Admin: 03/26/21 09:42 Dose: 80 mg Documented by: Bupropion HCl (Bupropion Hcl Xl 150 Mg Tab.Er.24h) 150 mg PO DAILY [facility] Last Admin: 03/26/21 09:42 Dose: 150 mg Documented by: Finasteride (Finasteride 5 Mg Tablet) 5 mg PO DAILY [facility] Last Admin: 03/26/21 09:41 Dose: 5 mg Documented by: Hydroxyzine HCl (Hydroxyzine Hcl 25 Mg Tablet) 25 mg PO Q6H PRN PRN Reason: Anxiety Isosorbide Mononitrate (Isosorbide Mononitrate 60 Mg Tab.Er.24h) 60 mg PO DAILY [facility]; Protocol Last Admin: 03/26/21 09:42 Dose: 60 mg Documented by: Lamotrigine (Lamotrigine 25 Mg Tablet) 25 mg PO BID [facility] Last Admin: 03/26/21 20:30 Dose: 25 mg Documented by: Magnesium Hydroxide (Milk Of Magnesia 30 Ml Oral.Susp) 30 ml PO DAILY PRN PRN Reason: Constipation Magnesium Hydroxide (Milk Of Magnesia 30 Ml Oral.Susp) 30 ml PO DAILY PRN PRN Reason: Constipation Melatonin (Melatonin 3 Mg Tablet) 3 mg PO BEDTIME PRN PRN Reason: insomnia Metformin HCl (Metformin Hcl Er 500 Mg Tab.Er.24h) 500 mg PO DAILY [facility] Last Admin: 03/26/21 09:42 Dose: 500 mg Documented by: Metoprolol Tartrate (Metoprolol Tartrate 12.5 Mg Halftab) 12.5 mg PO BID [facility]; Protocol Last Admin: 03/26/21 20:29 Dose: 12.5 mg Documented by: Patient Own Med ( Alfuzosin Hcl Er 10mg) 1 each PO BEDTIME [facility] Last Admin: 03/26/21 20:31 Dose: 1 each Documented by: Patient Own Med ( (Lumigan 0.01% Soln)) 1 each EYE-BOTH BEDTIME [facility] Last Admin: 03/26/21 20:31 Dose: 1 each Documented by: Olanzapine (Olanzapine 7.5 Mg Tablet) 7.5 mg PO BEDTIME [facility] Last Admin: 03/26/21 20:29 Dose: 7.5 mg Documented by: Omeprazole (Omeprazole 20 Mg Capsule.Dr) 20 mg PO DAILY@0630 [facility] Last Admin: 03/26/21 06:42 Dose: 20 mg Documented by: Pharmacy Consult (Consult Rx Perform Med Rec) 1 each MISCELLANE ONCE PRN PRN Reason: Consult order Pharmacy Consult (Consult Rx Perform Med Rec) 1 each MISCELLANE ONCE PRN PRN Reason: Consult order Trazodone HCl (Trazodone Hcl 50 Mg Tablet) 50 mg PO BEDTIME PRN PRN Reason: Insomnia Last Admin: 03/20/21 01:20 Dose: 50 mg Documented by: Allergies Allergies Allergy/AdvReac Type Severity Reaction Status Date / Time metoprolol AdvReac Unknown bradycardia Verified 03/16/21 14:28 timolol AdvReac Unknown low bp Verified 03/16/21 14:28 tamsulosin [From Flomax] AdvReac Diarrhea Verified 03/22/21 13:42 beta blockers AdvReac Hypotension Uncoded 03/22/21 13:46 Assessment & Plan Assessment & Plan (1) Bipolar disorder: Status: Acute Code(s): F31.9 - Bipolar disorder, unspecified (2) Elbow fracture, right: Qualifiers: Encounter type: initial encounter Fracture type: closed Qualified Code(s): S42.401A - Unspecified fracture of lower end of right humerus, initial encounter for closed fracture Status: Acute Code(s): S42.401A - Unspecified fracture of lower end of right humerus, initial encounter for closed fracture Assessment and Plan: The patient is an elderly male with a history of bipolar disorder with good social support referred to the facility for exacerbation of mood symptoms in the context of poor compliance. Plan 1. Keep same treatment, reassess Zyprexa 7.5 if he is over-sedated in the mor narcisa. We will continue with Wellbutrin XL. Patient does have a history of response to ECT would consider Latuda Greater than 50% of the session was spent on counseling and/or coordination of care Reason for contiued inpatient stay Substantial Risk for: harm to self and rapid decompensation
[2021-03-27] MEDS: Omeprazole 20 MG CAPSULE.DR PO (06:36)
[2021-03-27 09:19] VITALS: BP 135/67; PULSE 59; RESP 17; TEMP 36.9; O2SAT 96
[2021-03-27] MEDS: metFORMIN HCl ER 500 MG TAB.ER.24H PO (09:27)
[2021-03-27] MEDS: buPROPion HCl XL 150 MG TAB.ER.24H PO (09:27)
[2021-03-27] MEDS: lamoTRIgine 25 MG TABLET PO ×2 (09:27→20:12)
[2021-03-27] MEDS: Finasteride 5 MG TABLET PO (09:27)
[2021-03-27] MEDS: Atorvastatin Calcium 80 MG TABLET PO (09:27)
[2021-03-27 10:53] LABS: Glucose, Whole Blood 179 mg/dL (60-115)
[2021-03-27 11:45] VITALS: BP 130/76; PULSE 74
[2021-03-27] MEDS: Isosorbide Mononitrate 60 MG TAB.ER.24H PO (11:45)
[2021-03-27] MEDS: Metoprolol Tartrate 12.5 MG HALFTAB PO ×2 (11:45→20:12)
[2021-03-27 18:00] VITALS: BP 105/59; PULSE 64; RESP 18; TEMP 37.1; O2SAT 94
--- NOTE | 2021-03-27 18:01 | PC.NURSE ---
Patient placed on 1:1 observation after review of soft cast with savanna wrap. Cmm Operator aware and MD alerted for order.
[2021-03-27 20:12] VITALS: BP 105/59; PULSE 64
[2021-03-27] MEDS: OLANZapine 7.5 MG TABLET PO (20:12)
[2021-03-27] MEDS: amLODIPine Besylate 2.5 MG TABLET PO (20:12)
[2021-03-27 21:07] LABS: Glucose, Whole Blood 160 mg/dL (60-115)
--- NOTE | 2021-03-27 23:09 | P.PNPSI_ITS ---
Subjective Subjective Date of Service: 03/27/21 Reason For Visit: Depression ? OD Sub abuse Interim History: pt seen on 03/27 pt sitting in dark room, awake he reports ongoing, severe depression; he denies SI or HI or AVH. He says maybe he's a little better but he is not really sure. Mental Status Exam Mental Status Exam Narrative: Patient Appearance:?Fatigued and Disheveled; limited eye contact Patient Orientation:?Person and Situation Level of Consciousness:?Awake Patient Behavior:?Passive Mood Description:? really depressed Affect Description:?constricted, downcast Patient Cognition Impaired:?Yes Ability to Follow Directions:?Good Speech Pattern:?Clear Memory Description:?Intact Hallucinations:?None Thought Process:?some speech latency but otherwise goal oriented; Thought Content:?Poverty of Content Judgement:?Fair Diagnostics Vital Signs (24Hr): Vital Signs - 24 hr 03/27/21 09:19 03/27/21 11:45 03/27/21 18:00 Temperature 98.4 F 98.7 F Pulse Rate 59 74 64 Respiratory Rate 17 18 Blood Pressure 135/67 130/76 105/59 L Pulse Oximetry 96 94 03/27/21 20:12 Temperature Pulse Rate 64 Respiratory Rate Blood Pressure 105/59 L Pulse Oximetry Body Mass Index 25.0 Labs Results: 03/16/21 19:42 03/24/21 07:58 Labs: Laboratory Results - last 48 hr 03/27/21 03/27/21 10:49 20:19 POC Glucose 179 H 160 H Imaging Radiology Impressions: ITS Impressions Cervical Spine CT 03/16/21 15:12 IMPRESSION: 1. No acute intracranial pathology. 2. No CT evidence of acute cervical spine fracture or traumatic subluxation 3. Irregular 1.5 cm lesion right upper lobe. This is chronic unchanged since CAT scan of December 03, 2019. Elbow X-Ray 03/16/21 15:12 IMPRESSION: Arthritis. No fracture or dislocation seen. EXAMINATION: Right elbow x-ray CLINICAL INFORMATION: Pain post fall COMPARISON: None. TECHNIQUE: 3 views of the right elbow FINDINGS: There is a comminuted displaced fracture of the olecranon. No other fracture is seen. Joint spaces are normal. There is an elbow joint effusion. There is soft tissue swelling over the fracture. IMPRESSION: Comminuted displaced fracture of the olecranon. EXAMINATION: Right shoulder x-ray CLINICAL INFORMATION: Pain post fall COMPARISON: None. TECHNIQUE: 3 views of the right shoulder FINDINGS: Bone alignment is normal. No fracture or dislocation is seen. The glenohumeral joint is normal. There is arthritis at the acromioclavicular joint. Soft tissues are unremarkable. IMPRESSION: Arthritis at the acromioclavicular joint. EXAMINATION: Chest x-ray CLINICAL INFORMATION: Pain post fall COMPARISON: Previous chest x-ray August 2016 TECHNIQUE: One view of the chest FINDINGS: The cardiac silhouette is slightly enlarged. Thoracic aorta is tortuous. The pulmonary tavon appear prominent. There is a new right subclavian dual chamber pacemaker. There is a small dense right upper lobe nodule that appears unchanged. The lungs are otherwise clear. There is no pleural effusion or pneumothorax. There are surgical clips in the left axilla. There are degenerative changes of the spine. IMPRESSION: No evidence for acute disease in the chest. Prominent pulmonary tavon questionable for enlarged pulmonary arteries versus lymphadenopathy. Head CT 03/16/21 15:12 IMPRESSION: 1. No acute intracranial pathology. 2. No CT evidence of acute cervical spine fracture or traumatic subluxation 3. Irregular 1.5 cm lesion right upper lobe. This is chronic unchanged since CAT scan of December 03, 2019. Shoulder X-Ray 03/16/21 15:12 IMPRESSION: Arthritis. No fracture or dislocation seen. EXAMINATION: Right elbow x-ray CLINICAL INFORMATION: Pain post fall COMPARISON: None. TECHNIQUE: 3 views of the right elbow FINDINGS: There is a comminuted displaced fracture of the olecranon. No other fracture is seen. Joint spaces are normal. There is an elbow joint effusion. There is soft tissue swelling over the fracture. IMPRESSION: Comminuted displaced fracture of the olecranon. EXAMINATION: Right shoulder x-ray CLINICAL INFORMATION: Pain post fall COMPARISON: None. TECHNIQUE: 3 views of the right shoulder FINDINGS: Bone alignment is normal. No fracture or dislocation is seen. The glenohumeral joint is normal. There is arthritis at the acromioclavicular joint. Soft tissues are unremarkable. IMPRESSION: Arthritis at the acromioclavicular joint. EXAMINATION: Chest x-ray CLINICAL INFORMATION: Pain post fall COMPARISON: Previous chest x-ray August 2016 TECHNIQUE: One view of the chest FINDINGS: The cardiac silhouette is slightly enlarged. Thoracic aorta is tortuous. The pulmonary tavon appear prominent. There is a new right subclavian dual chamber pacemaker. There is a small dense right upper lobe nodule that appears unchanged. The lungs are otherwise clear. There is no pleural effusion or pneumothorax. There are surgical clips in the left axilla. There are degenerative changes of the spine. IMPRESSION: No evidence for acute disease in the chest. Prominent pulmonary tavon questionable for enlarged pulmonary arteries versus lymphadenopathy. Wrist X-Ray 03/16/21 15:12 IMPRESSION: Arthritis. No fracture or dislocation seen. EXAMINATION: Right elbow x-ray CLINICAL INFORMATION: Pain post fall COMPARISON: None. TECHNIQUE: 3 views of the right elbow FINDINGS: There is a comminuted displaced fracture of the olecranon. No other fracture is seen. Joint spaces are normal. There is an elbow joint effusion. There is soft tissue swelling over the fracture. IMPRESSION: Comminuted displaced fracture of the olecranon. EXAMINATION: Right shoulder x-ray CLINICAL INFORMATION: Pain post fall COMPARISON: None. TECHNIQUE: 3 views of the right shoulder FINDINGS: Bone alignment is normal. No fracture or dislocation is seen. The glenohumeral joint is normal. There is arthritis at the acromioclavicular joint. Soft tissues are unremarkable. IMPRESSION: Arthritis at the acromioclavicular joint. EXAMINATION: Chest x-ray CLINICAL INFORMATION: Pain post fall COMPARISON: Previous chest x-ray August 2016 TECHNIQUE: One view of the chest FINDINGS: The cardiac silhouette is slightly enlarged. Thoracic aorta is tortuous. The pulmonary tavon appear prominent. There is a new right subclavian dual chamber pacemaker. There is a small dense right upper lobe nodule that appears unchanged. The lungs are otherwise clear. There is no pleural effusion or pneumothorax. There are surgical clips in the left axilla. There are degenerative changes of the spine. IMPRESSION: No evidence for acute disease in the chest. Prominent pulmonary tavon questionable for enlarged pulmonary arteries versus lymphadenopathy. Chest X-Ray 03/16/21 15:13 IMPRESSION: Arthritis. No fracture or dislocation seen. EXAMINATION: Right elbow x-ray CLINICAL INFORMATION: Pain post fall COMPARISON: None. TECHNIQUE: 3 views of the right elbow FINDINGS: There is a comminuted displaced fracture of the olecranon. No other fracture is seen. Joint spaces are normal. There is an elbow joint effusion. There is soft tissue swelling over the fracture. IMPRESSION: Comminuted displaced fracture of the olecranon. EXAMINATION: Right shoulder x-ray CLINICAL INFORMATION: Pain post fall COMPARISON: None. TECHNIQUE: 3 views of the right shoulder FINDINGS: Bone alignment is normal. No fracture or dislocation is seen. The glenohumeral joint is normal. There is arthritis at the acromioclavicular joint. Soft tissues are unremarkable. IMPRESSION: Arthritis at the acromioclavicular joint. EXAMINATION: Chest x-ray CLINICAL INFORMATION: Pain post fall COMPARISON: Previous chest x-ray August 2016 TECHNIQUE: One view of the chest FINDINGS: The cardiac silhouette is slightly enlarged. Thoracic aorta is tortuous. The pulmonary tavon appear prominent. There is a new right subclavian dual chamber pacemaker. There is a small dense right upper lobe nodule that appears unchanged. The lungs are otherwise clear. There is no pleural effusion or pneumothorax. There are surgical clips in the left axilla. There are degenerative changes of the spine. IMPRESSION: No evidence for acute disease in the chest. Prominent pulmonary tavon questionable for enlarged pulmonary arteries versus lymphadenopathy. Elbow X-Ray 03/25/21 14:11 IMPRESSION: No change in the comminuted displaced olecranon fracture. Medications Medications Current Medications Acetaminophen (Acetaminophen 325 Mg Tablet) 650 mg PO Q6H PRN PRN Reason: Headache/Pain Mild Scale (1-3) Acetaminophen (Acetaminophen 325 Mg Tablet) 650 mg PO Q6H PRN PRN Reason: Headache/Pain Mild Scale (1-3) Al Hydroxide/Mg Hydroxide (Magnesium Hydrox/Alum Hydrox 30 Ml Oral.Susp) 30 ml PO Q6H PRN PRN Reason: Heartburn/Nausea Alendronate Sodium (Alendronate Sodium 70 Mg Tablet) 70 mg PO SA [facility] Last Admin: 03/27/21 13:27 Dose: Not Given Documented by: Alendronate Sodium (Alendronate Sodium 70 Mg Tablet) 70 mg PO Tesfaye@0630 ONE Stop: 03/28/21 06:31 Amlodipine Besylate (Amlodipine Besylate 2.5 Mg Tablet) 2.5 mg PO BEDTIME [facility]; Protocol Last Admin: 03/27/21 20:12 Dose: 2.5 mg Documented by: Atorvastatin Calcium (Atorvastatin Calcium 80 Mg Tablet) 80 mg PO DAILY [facility] Last Admin: 03/27/21 09:27 Dose: 80 mg Documented by: Bupropion HCl (Bupropion Hcl Xl 150 Mg Tab.Er.24h) 150 mg PO DAILY [facility] Last Admin: 03/27/21 09:27 Dose: 150 mg Documented by: Finasteride (Finasteride 5 Mg Tablet) 5 mg PO DAILY [facility] Last Admin: 03/27/21 09:27 Dose: 5 mg Documented by: Hydroxyzine HCl (Hydroxyzine Hcl 25 Mg Tablet) 25 mg PO Q6H PRN PRN Reason: Anxiety Isosorbide Mononitrate (Isosorbide Mononitrate 60 Mg Tab.Er.24h) 60 mg PO DAILY [facility]; Protocol Last Admin: 03/27/21 11:45 Dose: 60 mg Documented by: Lamotrigine (Lamotrigine 25 Mg Tablet) 25 mg PO BID [facility] Last Admin: 03/27/21 20:12 Dose: 25 mg Documented by: Magnesium Hydroxide (Milk Of Magnesia 30 Ml Oral.Susp) 30 ml PO DAILY PRN PRN Reason: Constipation Magnesium Hydroxide (Milk Of Magnesia 30 Ml Oral.Susp) 30 ml PO DAILY PRN PRN Reason: Constipation Melatonin (Melatonin 3 Mg Tablet) 3 mg PO BEDTIME PRN PRN Reason: insomnia Metformin HCl (Metformin Hcl Er 500 Mg Tab.Er.24h) 500 mg PO DAILY [facility] Last Admin: 03/27/21 09:27 Dose: 500 mg Documented by: Metoprolol Tartrate (Metoprolol Tartrate 12.5 Mg Halftab) 12.5 mg PO BID [facility]; Protocol Last Admin: 03/27/21 20:12 Dose: 12.5 mg Documented by: Patient Own Med ( Alfuzosin Hcl Er 10mg) 1 each PO BEDTIME [facility] Last Admin: 03/27/21 20:14 Dose: 1 each Documented by: Patient Own Med ( (Lumigan 0.01% Soln)) 1 each EYE-BOTH BEDTIME [facility] Last Admin: 03/27/21 20:14 Dose: 1 each Documented by: Olanzapine (Olanzapine 7.5 Mg Tablet) 7.5 mg PO BEDTIME [facility] Last Admin: 03/27/21 20:12 Dose: 7.5 mg Documented by: Omeprazole (Omeprazole 20 Mg Capsule.Dr) 20 mg PO DAILY@0630 [facility] Last Admin: 03/27/21 06:36 Dose: 20 mg Documented by: Pharmacy Consult (Consult Rx Perform Med Rec) 1 each MISCELLANE ONCE PRN PRN Reason: Consult order Pharmacy Consult (Consult Rx Perform Med Rec) 1 each MISCELLANE ONCE PRN PRN Reason: Consult order Trazodone HCl (Trazodone Hcl 50 Mg Tablet) 50 mg PO BEDTIME PRN PRN Reason: Insomnia Last Admin: 03/20/21 01:20 Dose: 50 mg Documented by: Allergies Allergies Allergy/AdvReac Type Severity Reaction Status Date / Time metoprolol AdvReac Unknown bradycardia Verified 03/16/21 14:28 timolol AdvReac Unknown low bp Verified 03/16/21 14:28 tamsulosin [From Flomax] AdvReac Diarrhea Verified 03/22/21 13:42 beta blockers AdvReac Hypotension Uncoded 03/22/21 13:46 Assessment & Plan Assessment & Plan (1) Bipolar disorder: Status: Acute Code(s): F31.9 - Bipolar disorder, unspecified (2) Elbow fracture, right: Qualifiers: Encounter type: initial encounter Fracture type: closed Qualified Code(s): S42.401A - Unspecified fracture of lower end of right humerus, initial encounter for closed fracture Status: Acute Code(s): S42.401A - Unspecified fracture of lower end of right humerus, initial encounter for closed fracture Assessment and Plan: WEEKEND COVERAGE: pt seen on 03/27 -remains depressed; no SI -cast on arm has reuben bandage so ordered 1:1 and will see if can switch to tape from REUBEN so relieve 1:1 -discussed med options of Latuda and [place]; pt is open to either -Currently, primary team has been titrating patient on Zyprexa and he's just recently at current dose; thus, will not make any med adjustments at this time to see if current regimen can prove effective and avoid polypharm -started pt on home med of Alendronate qweekly The patient is an elderly male with a history of bipolar disorder with good social support referred to the facility for exacerbation of mood symptoms in the context of poor compliance. Plan 1. Keep same treatment, reassess Zyprexa 7.5 if he is over-sedated in the morning. We will continue with Wellbutrin XL. Patient does have a history of response to ECT would consider Latuda Greater than 50% of the session was spent on counseling and/or coordination of care Reason for contiued inpatient stay Substantial Risk for: inability to function
[2021-03-28] MEDS: Omeprazole 20 MG CAPSULE.DR PO (06:03)
[2021-03-28 08:49] VITALS: BP 108/59; PULSE 59; RESP 14; TEMP 36.3; O2SAT 95
[2021-03-28] MEDS: buPROPion HCl XL 150 MG TAB.ER.24H PO (09:32)
[2021-03-28 09:34] VITALS: BP 108/59; PULSE 59
[2021-03-28] MEDS: lamoTRIgine 25 MG TABLET PO ×2 (09:35→21:40)
[2021-03-28] MEDS: metFORMIN HCl ER 500 MG TAB.ER.24H PO (09:35)
[2021-03-28] MEDS: Atorvastatin Calcium 80 MG TABLET PO (09:35)
[2021-03-28 09:36] VITALS: BP 108/59; PULSE 59
[2021-03-28] MEDS: Isosorbide Mononitrate 60 MG TAB.ER.24H PO (09:36)
[2021-03-28] MEDS: Finasteride 5 MG TABLET PO (09:37)
[2021-03-28 10:49] LABS: Glucose, Whole Blood 203 mg/dL (60-115)
--- NOTE | 2021-03-28 14:22 | HO.PSYCHPN ---
Subjective Subjective Date of Service: 03/28/21 Reason For Visit: Depression ? OD Sub abuse Interim History: seen on 03/28 -remains depressed, no SI; was willing to get out of bed to watch football game in [place]; investigative writer discussed behavioral activation as part of his treatment to which pt says he'll work on -hospitalist ok'd changing partial cast from REUBEN to tape so can dc 1:1 Mental Status Exam Mental Status Exam Narrative: Patient Appearance:?Fatigued and Disheveled; limited eye contact Patient Orientation:?Person and Situation Level of Consciousness:?Awake Patient Behavior:?Passive Mood Description:?depressed Affect Description:?blunted to constricted; downcast Patient Cognition Impaired:?Yes Ability to Follow Directions:?Good Speech Pattern:?Clear Memory Description:?Intact Hallucinations:?None Thought Process:?some speech latency but otherwise goal oriented; Thought Content:?Poverty of Content Judgement:?Fair Diagnostics Vital Signs (24Hr): Vital Signs - 24 hr 03/27/21 18:00 03/27/21 20:12 03/28/21 08:49 Temperature 98.7 F 97.4 F Pulse Rate 64 64 59 Respiratory Rate 18 14 Blood Pressure 105/59 L 105/59 L 108/59 L Pulse Oximetry 94 95 03/28/21 09:34 03/28/21 09:36 Temperature Pulse Rate 59 59 Respiratory Rate Blood Pressure 108/59 L 108/59 L Pulse Oximetry Body Mass Index 25.0 Labs Results: 03/16/21 19:42 03/24/21 07:58 Labs: Laboratory Results - last 48 hr 03/27/21 03/27/21 03/28/21 10:49 20:19 10:44 POC Glucose 179 H 160 H 203 H Imaging Radiology Impressions: ITS Impressions Cervical Spine CT 03/16/21 15:12 IMPRESSION: 1. No acute intracranial pathology. 2. No CT evidence of acute cervical spine fracture or traumatic subluxation 3. Irregular 1.5 cm lesion right upper lobe. This is chronic unchanged since CAT scan of December 03, 2019. Elbow X-Ray 03/16/21 15:12 IMPRESSION: Arthritis. No fracture or dislocation seen. EXAMINATION: Right elbow x-ray CLINICAL INFORMATION: Pain post fall COMPARISON: None. TECHNIQUE: 3 views of the right elbow FINDINGS: There is a comminuted displaced fracture of the olecranon. No other fracture is seen. Joint spaces are normal. There is an elbow joint effusion. There is soft tissue swelling over the fracture. IMPRESSION: Comminuted displaced fracture of the olecranon. EXAMINATION: Right shoulder x-ray CLINICAL INFORMATION: Pain post fall COMPARISON: None. TECHNIQUE: 3 views of the right shoulder FINDINGS: Bone alignment is normal. No fracture or dislocation is seen. The glenohumeral joint is normal. There is arthritis at the acromioclavicular joint. Soft tissues are unremarkable. IMPRESSION: Arthritis at the acromioclavicular joint. EXAMINATION: Chest x-ray CLINICAL INFORMATION: Pain post fall COMPARISON: Previous chest x-ray August 2016 TECHNIQUE: One view of the chest FINDINGS: The cardiac silhouette is slightly enlarged. Thoracic aorta is tortuous. The pulmonary tavon appear prominent. There is a new right subclavian dual chamber pacemaker. There is a small dense right upper lobe nodule that appears unchanged. The lungs are otherwise clear. There is no pleural effusion or pneumothorax. There are surgical clips in the left axilla. There are degenerative changes of the spine. IMPRESSION: No evidence for acute disease in the chest. Prominent pulmonary tavon questionable for enlarged pulmonary arteries versus lymphadenopathy. Head CT 03/16/21 15:12 IMPRESSION: 1. No acute intracranial pathology. 2. No CT evidence of acute cervical spine fracture or traumatic subluxation 3. Irregular 1.5 cm lesion right upper lobe. This is chronic unchanged since CAT scan of December 03, 2019. Shoulder X-Ray 03/16/21 15:12 IMPRESSION: Arthritis. No fracture or dislocation seen. EXAMINATION: Right elbow x-ray CLINICAL INFORMATION: Pain post fall COMPARISON: None. TECHNIQUE: 3 views of the right elbow FINDINGS: There is a comminuted displaced fracture of the olecranon. No other fracture is seen. Joint spaces are normal. There is an elbow joint effusion. There is soft tissue swelling over the fracture. IMPRESSION: Comminuted displaced fracture of the olecranon. EXAMINATION: Right shoulder x-ray CLINICAL INFORMATION: Pain post fall COMPARISON: None. TECHNIQUE: 3 views of the right shoulder FINDINGS: Bone alignment is normal. No fracture or dislocation is seen. The glenohumeral joint is normal. There is arthritis at the acromioclavicular joint. Soft tissues are unremarkable. IMPRESSION: Arthritis at the acromioclavicular joint. EXAMINATION: Chest x-ray CLINICAL INFORMATION: Pain post fall COMPARISON: Previous chest x-ray August 2016 TECHNIQUE: One view of the chest FINDINGS: The cardiac silhouette is slightly enlarged. Thoracic aorta is tortuous. The pulmonary tavon appear prominent. There is a new right subclavian dual chamber pacemaker. There is a small dense right upper lobe nodule that appears unchanged. The lungs are otherwise clear. There is no pleural effusion or pneumothorax. There are surgical clips in the left axilla. There are degenerative changes of the spine. IMPRESSION: No evidence for acute disease in the chest. Prominent pulmonary tavon questionable for enlarged pulmonary arteries versus lymphadenopathy. Wrist X-Ray 03/16/21 15:12 IMPRESSION: Arthritis. No fracture or dislocation seen. EXAMINATION: Right elbow x-ray CLINICAL INFORMATION: Pain post fall COMPARISON: None. TECHNIQUE: 3 views of the right elbow FINDINGS: There is a comminuted displaced fracture of the olecranon. No other fracture is seen. Joint spaces are normal. There is an elbow joint effusion. There is soft tissue swelling over the fracture. IMPRESSION: Comminuted displaced fracture of the olecranon. EXAMINATION: Right shoulder x-ray CLINICAL INFORMATION: Pain post fall COMPARISON: None. TECHNIQUE: 3 views of the right shoulder FINDINGS: Bone alignment is normal. No fracture or dislocation is seen. The glenohumeral joint is normal. There is arthritis at the acromioclavicular joint. Soft tissues are unremarkable. IMPRESSION: Arthritis at the acromioclavicular joint. EXAMINATION: Chest x-ray CLINICAL INFORMATION: Pain post fall COMPARISON: Previous chest x-ray August 2016 TECHNIQUE: One view of the chest FINDINGS: The cardiac silhouette is slightly enlarged. Thoracic aorta is tortuous. The pulmonary tavon appear prominent. There is a new right subclavian dual chamber pacemaker. There is a small dense right upper lobe nodule that appears unchanged. The lungs are otherwise clear. There is no pleural effusion or pneumothorax. There are surgical clips in the left axilla. There are degenerative changes of the spine. IMPRESSION: No evidence for acute disease in the chest. Prominent pulmonary tavon questionable for enlarged pulmonary arteries versus lymphadenopathy. Chest X-Ray 03/16/21 15:13 IMPRESSION: Arthritis. No fracture or dislocation seen. EXAMINATION: Right elbow x-ray CLINICAL INFORMATION: Pain post fall COMPARISON: None. TECHNIQUE: 3 views of the right elbow FINDINGS: There is a comminuted displaced fracture of the olecranon. No other fracture is seen. Joint spaces are normal. There is an elbow joint effusion. There is soft tissue swelling over the fracture. IMPRESSION: Comminuted displaced fracture of the olecranon. EXAMINATION: Right shoulder x-ray CLINICAL INFORMATION: Pain post fall COMPARISON: None. TECHNIQUE: 3 views of the right shoulder FINDINGS: Bone alignment is normal. No fracture or dislocation is seen. The glenohumeral joint is normal. There is arthritis at the acromioclavicular joint. Soft tissues are unremarkable. IMPRESSION: Arthritis at the acromioclavicular joint. EXAMINATION: Chest x-ray CLINICAL INFORMATION: Pain post fall COMPARISON: Previous chest x-ray August 2016 TECHNIQUE: One view of the chest FINDINGS: The cardiac silhouette is slightly enlarged. Thoracic aorta is tortuous. The pulmonary tavon appear prominent. There is a new right subclavian dual chamber pacemaker. There is a small dense right upper lobe nodule that appears unchanged. The lungs are otherwise clear. There is no pleural effusion or pneumothorax. There are surgical clips in the left axilla. There are degenerative changes of the spine. IMPRESSION: No evidence for acute disease in the chest. Prominent pulmonary tavon questionable for enlarged pulmonary arteries versus lymphadenopathy. Elbow X-Ray 03/25/21 14:11 IMPRESSION: No change in the comminuted displaced olecranon fracture. Medications Medications Current Medications Acetaminophen (Acetaminophen 325 Mg Tablet) 650 mg PO Q6H PRN PRN Reason: Headache/Pain Mild Scale (1-3) Acetaminophen (Acetaminophen 325 Mg Tablet) 650 mg PO Q6H PRN PRN Reason: Headache/Pain Mild Scale (1-3) Al Hydroxide/Mg Hydroxide (Magnesium Hydrox/Alum Hydrox 30 Ml Oral.Susp) 30 ml PO Q6H PRN PRN Reason: Heartburn/Nausea Alendronate Sodium (Alendronate Sodium 70 Mg Tablet) 70 mg PO SA [facility] Last Admin: 03/27/21 13:27 Dose: Not Given Documented by: Amlodipine Besylate (Amlodipine Besylate 2.5 Mg Tablet) 2.5 mg PO BEDTIME [facility]; Protocol Last Admin: 03/27/21 20:12 Dose: 2.5 mg Documented by: Atorvastatin Calcium (Atorvastatin Calcium 80 Mg Tablet) 80 mg PO DAILY [facility] Last Admin: 03/28/21 09:35 Dose: 80 mg Documented by: Bupropion HCl (Bupropion Hcl Xl 150 Mg Tab.Er.24h) 150 mg PO DAILY [facility] Last Admin: 03/28/21 09:32 Dose: 150 mg Documented by: Finasteride (Finasteride 5 Mg Tablet) 5 mg PO DAILY [facility] Last Admin: 03/28/21 09:37 Dose: 5 mg Documented by: Hydroxyzine HCl (Hydroxyzine Hcl 25 Mg Tablet) 25 mg PO Q6H PRN PRN Reason: Anxiety Isosorbide Mononitrate (Isosorbide Mononitrate 60 Mg Tab.Er.24h) 60 mg PO DAILY [facility]; Protocol Last Admin: 03/28/21 09:36 Dose: 60 mg Documented by: Lamotrigine (Lamotrigine 25 Mg Tablet) 25 mg PO BID [facility] Last Admin: 03/28/21 09:35 Dose: 25 mg Documented by: Magnesium Hydroxide (Milk Of Magnesia 30 Ml Oral.Susp) 30 ml PO DAILY PRN PRN Reason: Constipation Magnesium Hydroxide (Milk Of Magnesia 30 Ml Oral.Susp) 30 ml PO DAILY PRN PRN Reason: Constipation Melatonin (Melatonin 3 Mg Tablet) 3 mg PO BEDTIME PRN PRN Reason: insomnia Metformin HCl (Metformin Hcl Er 500 Mg Tab.Er.24h) 500 mg PO DAILY [facility] Last Admin: 03/28/21 09:35 Dose: 500 mg Documented by: Metoprolol Tartrate (Metoprolol Tartrate 12.5 Mg Halftab) 12.5 mg PO BID [facility]; Protocol Last Admin: 03/28/21 09:34 Dose: Not Given Documented by: Patient Own Med ( Alfuzosin Hcl Er 10mg) 1 each PO BEDTIME [facility] Last Admin: 03/27/21 20:14 Dose: 1 each Documented by: Patient Own Med ( (Lumigan 0.01% Soln)) 1 each EYE-BOTH BEDTIME [facility] Last Admin: 03/27/21 20:14 Dose: 1 each Documented by: Olanzapine (Olanzapine 7.5 Mg Tablet) 7.5 mg PO BEDTIME [facility] Last Admin: 03/27/21 20:12 Dose: 7.5 mg Documented by: Omeprazole (Omeprazole 20 Mg Capsule.) 20 mg PO DAILY@0630 [facility] Last Admin: 03/28/21 06:03 Dose: 20 mg Documented by: Pharmacy Consult (Consult Rx Perform Med Rec) 1 each MISCELLANE ONCE PRN PRN Reason: Consult order Pharmacy Consult (Consult Rx Perform Med Rec) 1 each MISCELLANE ONCE PRN PRN Reason: Consult order Trazodone HCl (Trazodone Hcl 50 Mg Tablet) 50 mg PO BEDTIME PRN PRN Reason: Insomnia Last Admin: 03/20/21 01:20 Dose: 50 mg Documented by: Allergies Allergies Allergy/AdvReac Type Severity Reaction Status Date / Time metoprolol AdvReac Unknown bradycardia Verified 03/16/21 14:28 timolol AdvReac Unknown low bp Verified 03/16/21 14:28 tamsulosin [From Flomax] AdvReac Diarrhea Verified 03/22/21 13:42 beta blockers AdvReac Hypotension Uncoded 03/22/21 13:46 Assessment & Plan Assessment & Plan (1) Bipolar disorder: Status: Acute Code(s): F31.9 - Bipolar disorder, unspecified (2) Elbow fracture, right: Qualifiers: Encounter type: initial encounter Fracture type: closed Qualified Code(s): S42.401A - Unspecified fracture of lower end of right humerus, initial encounter for closed fracture Status: Acute Code(s): S42.401A - Unspecified fracture of lower end of right humerus, initial encounter for closed fracture Assessment and Plan: WEEKEND COVERAGE: pt seen on 03/28 -remains depressed; no SI; face downcast, sitting alone in dark room -cast on arm switched from REUBEN bandage to tape and so 1:1 dc'd -again, discussed med options of [place] and [place]; pt is open to either -Currently, primary team has been titrating patient on Zyprexa and he's just recently at current dose; thus, will not make any med adjustments at this time to see if current regimen can prove effective and avoid polypharm -continue home med of Alendronate qweekly The patient is an elderly male with a history of bipolar disorder with good social support referred to the facility for exacerbation of mood symptoms in the context of poor compliance. Plan 1. Keep same treatment, reassess Zyprexa 7.5 if he is over-sedated in the morning.? We will continue with Wellbutrin XL. Patient does have a history of response to ECT would consider Latuda Greater than 50% of the session was spent on counseling and/or coordination of care Reason for contiued inpatient stay Substantial Risk for: inability to function
[2021-03-28 21:34] VITALS: BP 137/73; PULSE 73; RESP 18; TEMP 36.4; O2SAT 9
[2021-03-28 21:40] VITALS: BP 137/73; PULSE 73
[2021-03-28] MEDS: Metoprolol Tartrate 12.5 MG HALFTAB PO (21:40)
[2021-03-28] MEDS: amLODIPine Besylate 2.5 MG TABLET PO (21:40)
[2021-03-28] MEDS: OLANZapine 7.5 MG TABLET PO (21:41)
[2021-03-28 21:51] LABS: Glucose, Whole Blood 176 mg/dL (60-115)
[2021-03-29] MEDS: Omeprazole 20 MG CAPSULE.DR PO (06:27)
[2021-03-29 07:46] LABS: Glucose, Whole Blood 147 mg/dL (60-115)
[2021-03-29 09:15] VITALS: BP 115/68; PULSE 66
[2021-03-29] MEDS: lamoTRIgine 25 MG TABLET PO ×2 (09:15→20:34)
[2021-03-29] MEDS: Finasteride 5 MG TABLET PO (09:15)
[2021-03-29] MEDS: Isosorbide Mononitrate 60 MG TAB.ER.24H PO (09:15)
[2021-03-29 09:16] VITALS: BP 116/68; PULSE 66
[2021-03-29] MEDS: Atorvastatin Calcium 80 MG TABLET PO (09:16)
[2021-03-29] MEDS: metFORMIN HCl ER 500 MG TAB.ER.24H PO (09:16)
[2021-03-29] MEDS: Metoprolol Tartrate 12.5 MG HALFTAB PO ×2 (09:16→20:34)
[2021-03-29] MEDS: buPROPion HCl XL 150 MG TAB.ER.24H PO (09:16)
--- NOTE | 2021-03-29 12:01 | HO.PSYCHPN ---
Subjective Subjective Date of Service: 03/29/21 Reason For Visit: Depression ? OD Sub abuse Interim History: seen on 03/29 depressed, lying in bed awake, in dark room no SI/hI again discussed behavioral activation w/ plan for pt to force himself out of room into [facility] 1/day (not including meals) discussed hx of ECT which he says helped only a little bit after first few treatments but that it never improved further and he remembers it being of little help; agrees to discuss med augmentation with primary team when the return tomorrow. Mental Status Exam Mental Status Exam Narrative: Patient Appearance:?Fatigued and Disheveled; limited eye contact Patient Orientation:?Person and Situation Level of Consciousness:?Awake Patient Behavior:?Passive Mood Description:?depressed Affect Description:?blunted to constricted; downcast Patient Cognition Impaired:?Yes Ability to Follow Directions:?Good Speech Pattern:?Clear Memory Description:?Intact Hallucinations:?None Thought Process:?some speech latency but otherwise goal oriented; Thought Content:?Poverty of Content; no SI; no HI Judgement:?Fair Diagnostics Vital Signs (24Hr): Vital Signs - 24 hr 03/28/21 21:34 03/28/21 21:40 03/29/21 09:15 Temperature 97.5 F Pulse Rate 73 73 66 Respiratory Rate 18 Blood Pressure 137/73 137/73 115/68 Pulse Oximetry 9 L 03/29/21 09:16 Temperature Pulse Rate 66 Respiratory Rate Blood Pressure 116/68 Pulse Oximetry Body Mass Index 25.0 Labs Results: 03/16/21 19:42 03/24/21 07:58 Labs: Laboratory Results - last 48 hr 03/27/21 03/28/21 03/28/21 20:19 10:44 21:46 POC Glucose 160 H 203 H 176 H 03/29/21 07:40 POC Glucose 147 H Imaging Radiology Impressions: ITS Impressions Cervical Spine CT 03/16/21 15:12 IMPRESSION: 1. No acute intracranial pathology. 2. No CT evidence of acute cervical spine fracture or traumatic subluxation 3. Irregular 1.5 cm lesion right upper lobe. This is chronic unchanged since CAT scan of December 03, 2019. Elbow X-Ray 03/16/21 15:12 IMPRESSION: Arthritis. No fracture or dislocation seen. EXAMINATION: Right elbow x-ray CLINICAL INFORMATION: Pain post fall COMPARISON: None. TECHNIQUE: 3 views of the right elbow FINDINGS: There is a comminuted displaced fracture of the olecranon. No other fracture is seen. Joint spaces are normal. There is an elbow joint effusion. There is soft tissue swelling over the fracture. IMPRESSION: Comminuted displaced fracture of the olecranon. EXAMINATION: Right shoulder x-ray CLINICAL INFORMATION: Pain post fall COMPARISON: None. TECHNIQUE: 3 views of the right shoulder FINDINGS: Bone alignment is normal. No fracture or dislocation is seen. The glenohumeral joint is normal. There is arthritis at the acromioclavicular joint. Soft tissues are unremarkable. IMPRESSION: Arthritis at the acromioclavicular joint. EXAMINATION: Chest x-ray CLINICAL INFORMATION: Pain post fall COMPARISON: Previous chest x-ray August 2016 TECHNIQUE: One view of the chest FINDINGS: The cardiac silhouette is slightly enlarged. Thoracic aorta is tortuous. The pulmonary tavon appear prominent. There is a new right subclavian dual chamber pacemaker. There is a small dense right upper lobe nodule that appears unchanged. The lungs are otherwise clear. There is no pleural effusion or pneumothorax. There are surgical clips in the left axilla. There are degenerative changes of the spine. IMPRESSION: No evidence for acute disease in the chest. Prominent pulmonary tavon questionable for enlarged pulmonary arteries versus lymphadenopathy. Head CT 03/16/21 15:12 IMPRESSION: 1. No acute intracranial pathology. 2. No CT evidence of acute cervical spine fracture or traumatic subluxation 3. Irregular 1.5 cm lesion right upper lobe. This is chronic unchanged since CAT scan of December 03, 2019. Shoulder X-Ray 03/16/21 15:12 IMPRESSION: Arthritis. No fracture or dislocation seen. EXAMINATION: Right elbow x-ray CLINICAL INFORMATION: Pain post fall COMPARISON: None. TECHNIQUE: 3 views of the right elbow FINDINGS: There is a comminuted displaced fracture of the olecranon. No other fracture is seen. Joint spaces are normal. There is an elbow joint effusion. There is soft tissue swelling over the fracture. IMPRESSION: Comminuted displaced fracture of the olecranon. EXAMINATION: Right shoulder x-ray CLINICAL INFORMATION: Pain post fall COMPARISON: None. TECHNIQUE: 3 views of the right shoulder FINDINGS: Bone alignment is normal. No fracture or dislocation is seen. The glenohumeral joint is normal. There is arthritis at the acromioclavicular joint. Soft tissues are unremarkable. IMPRESSION: Arthritis at the acromioclavicular joint. EXAMINATION: Chest x-ray CLINICAL INFORMATION: Pain post fall COMPARISON: Previous chest x-ray August 2016 TECHNIQUE: One view of the chest FINDINGS: The cardiac silhouette is slightly enlarged. Thoracic aorta is tortuous. The pulmonary tavon appear prominent. There is a new right subclavian dual chamber pacemaker. There is a small dense right upper lobe nodule that appears unchanged. The lungs are otherwise clear. There is no pleural effusion or pneumothorax. There are surgical clips in the left axilla. There are degenerative changes of the spine. IMPRESSION: No evidence for acute disease in the chest. Prominent pulmonary tavon questionable for enlarged pulmonary arteries versus lymphadenopathy. Wrist X-Ray 03/16/21 15:12 IMPRESSION: Arthritis. No fracture or dislocation seen. EXAMINATION: Right elbow x-ray CLINICAL INFORMATION: Pain post fall COMPARISON: None. TECHNIQUE: 3 views of the right elbow FINDINGS: There is a comminuted displaced fracture of the olecranon. No other fracture is seen. Joint spaces are normal. There is an elbow joint effusion. There is soft tissue swelling over the fracture. IMPRESSION: Comminuted displaced fracture of the olecranon. EXAMINATION: Right shoulder x-ray CLINICAL INFORMATION: Pain post fall COMPARISON: None. TECHNIQUE: 3 views of the right shoulder FINDINGS: Bone alignment is normal. No fracture or dislocation is seen. The glenohumeral joint is normal. There is arthritis at the acromioclavicular joint. Soft tissues are unremarkable. IMPRESSION: Arthritis at the acromioclavicular joint. EXAMINATION: Chest x-ray CLINICAL INFORMATION: Pain post fall COMPARISON: Previous chest x-ray August 2016 TECHNIQUE: One view of the chest FINDINGS: The cardiac silhouette is slightly enlarged. Thoracic aorta is tortuous. The pulmonary tavon appear prominent. There is a new right subclavian dual chamber pacemaker. There is a small dense right upper lobe nodule that appears unchanged. The lungs are otherwise clear. There is no pleural effusion or pneumothorax. There are surgical clips in the left axilla. There are degenerative changes of the spine. IMPRESSION: No evidence for acute disease in the chest. Prominent pulmonary tavon questionable for enlarged pulmonary arteries versus lymphadenopathy. Chest X-Ray 03/16/21 15:13 IMPRESSION: Arthritis. No fracture or dislocation seen. EXAMINATION: Right elbow x-ray CLINICAL INFORMATION: Pain post fall COMPARISON: None. TECHNIQUE: 3 views of the right elbow FINDINGS: There is a comminuted displaced fracture of the olecranon. No other fracture is seen. Joint spaces are normal. There is an elbow joint effusion. There is soft tissue swelling over the fracture. IMPRESSION: Comminuted displaced fracture of the olecranon. EXAMINATION: Right shoulder x-ray CLINICAL INFORMATION: Pain post fall COMPARISON: None. TECHNIQUE: 3 views of the right shoulder FINDINGS: Bone alignment is normal. No fracture or dislocation is seen. The glenohumeral joint is normal. There is arthritis at the acromioclavicular joint. Soft tissues are unremarkable. IMPRESSION: Arthritis at the acromioclavicular joint. EXAMINATION: Chest x-ray CLINICAL INFORMATION: Pain post fall COMPARISON: Previous chest x-ray August 2016 TECHNIQUE: One view of the chest FINDINGS: The cardiac silhouette is slightly enlarged. Thoracic aorta is tortuous. The pulmonary tavon appear prominent. There is a new right subclavian dual chamber pacemaker. There is a small dense right upper lobe nodule that appears unchanged. The lungs are otherwise clear. There is no pleural effusion or pneumothorax. There are surgical clips in the left axilla. There are degenerative changes of the spine. IMPRESSION: No evidence for acute disease in the chest. Prominent pulmonary tavon questionable for enlarged pulmonary arteries versus lymphadenopathy. Elbow X-Ray 03/25/21 14:11 IMPRESSION: No change in the comminuted displaced olecranon fracture. Medications Medications Current Medications Acetaminophen (Acetaminophen 325 Mg Tablet) 650 mg PO Q6H PRN PRN Reason: Headache/Pain Mild Scale (1-3) Acetaminophen (Acetaminophen 325 Mg Tablet) 650 mg PO Q6H PRN PRN Reason: Headache/Pain Mild Scale (1-3) Al Hydroxide/Mg Hydroxide (Magnesium Hydrox/Alum Hydrox 30 Ml Oral.Susp) 30 ml PO Q6H PRN PRN Reason: Heartburn/Nausea Alendronate Sodium (Alendronate Sodium 70 Mg Tablet) 70 mg PO SA [facility] Last Admin: 03/27/21 13:27 Dose: Not Given Documented by: Amlodipine Besylate (Amlodipine Besylate 2.5 Mg Tablet) 2.5 mg PO BEDTIME [facility]; Protocol Last Admin: 03/28/21 21:40 Dose: 2.5 mg Documented by: Atorvastatin Calcium (Atorvastatin Calcium 80 Mg Tablet) 80 mg PO DAILY [facility] Last Admin: 03/29/21 09:16 Dose: 80 mg Documented by: Bupropion HCl (Bupropion Hcl Xl 150 Mg Tab.Er.24h) 150 mg PO DAILY [facility] Last Admin: 03/29/21 09:16 Dose: 150 mg Documented by: Finasteride (Finasteride 5 Mg Tablet) 5 mg PO DAILY [facility] Last Admin: 03/29/21 09:15 Dose: 5 mg Documented by: Hydroxyzine HCl (Hydroxyzine Hcl 25 Mg Tablet) 25 mg PO Q6H PRN PRN Reason: Anxiety Isosorbide Mononitrate (Isosorbide Mononitrate 60 Mg Tab.Er.24h) 60 mg PO DAILY [facility]; Protocol Last Admin: 03/29/21 09:15 Dose: 60 mg Documented by: Lamotrigine (Lamotrigine 25 Mg Tablet) 25 mg PO BID [facility] Last Admin: 03/29/21 09:15 Dose: 25 mg Documented by: Magnesium Hydroxide (Milk Of Magnesia 30 Ml Oral.Susp) 30 ml PO DAILY PRN PRN Reason: Constipation Magnesium Hydroxide (Milk Of Magnesia 30 Ml Oral.Susp) 30 ml PO DAILY PRN PRN Reason: Constipation Melatonin (Melatonin 3 Mg Tablet) 3 mg PO BEDTIME PRN PRN Reason: insomnia Metformin HCl (Metformin Hcl Er 500 Mg Tab.Er.24h) 500 mg PO DAILY [facility] Last Admin: 03/29/21 09:16 Dose: 500 mg Documented by: Metoprolol Tartrate (Metoprolol Tartrate 12.5 Mg Halftab) 12.5 mg PO BID [facility]; Protocol Last Admin: 03/29/21 09:16 Dose: 12.5 mg Documented by: Patient Own Med ( Alfuzosin Hcl Er 10mg) 1 each PO BEDTIME [facility] Last Admin: 03/28/21 21:41 Dose: 1 each Documented by: Patient Own Med ( (Lumigan 0.01% Soln)) 1 each EYE-BOTH BEDTIME [facility] Last Admin: 03/28/21 21:41 Dose: 1 each Documented by: Olanzapine (Olanzapine 7.5 Mg Tablet) 7.5 mg PO BEDTIME [facility] Last Admin: 03/28/21 21:41 Dose: 7.5 mg Documented by: Omeprazole (Omeprazole 20 Mg Capsule.) 20 mg PO DAILY@0630 TEDDY Last Admin: 03/29/21 06:27 Dose: 20 mg Documented by: Pharmacy Consult (Consult Rx Perform Med Rec) 1 each MISCELLANE ONCE PRN PRN Reason: Consult order Pharmacy Consult (Consult Rx Perform Med Rec) 1 each MISCELLANE ONCE PRN PRN Reason: Consult order Trazodone HCl (Trazodone Hcl 50 Mg Tablet) 50 mg PO BEDTIME PRN PRN Reason: Insomnia Last Admin: 03/20/21 01:20 Dose: 50 mg Documented by: Allergies Allergies Allergy/AdvReac Type Severity Reaction Status Date / Time metoprolol AdvReac Unknown bradycardia Verified 03/16/21 14:28 timolol AdvReac Unknown low bp Verified 03/16/21 14:28 tamsulosin [From Flomax] AdvReac Diarrhea Verified 03/22/21 13:42 beta blockers AdvReac Hypotension Uncoded 03/22/21 13:46 Assessment & Plan Assessment & Plan (1) Bipolar disorder: Status: Acute Code(s): F31.9 - Bipolar disorder, unspecified (2) Elbow fracture, right: Qualifiers: Encounter type: initial encounter Fracture type: closed Qualified Code(s): S42.401A - Unspecified fracture of lower end of right humerus, initial encounter for closed fracture Status: Acute Code(s): S42.401A - Unspecified fracture of lower end of right humerus, initial encounter for closed fracture Assessment and Plan: WEEKEND COVERAGE: pt seen on 03/29 -remains depressed; no SI; face downcast, sitting alone in dark room -again, discussed med options of [place] and [place]; pt is open to either; says ECT was not that helpful -Currently, primary team has been titrating patient on Zyprexa and he's just recently at current dose; thus, will not make any med adjustments at this time to see if current regimen can prove effective and avoid polypharm -continue home med of Alendronate qweekly -cast on arm switched from REUBEN bandage to tape and so 1:1 dc'd The patient is an elderly male with a history of bipolar disorder with good social support referred to the facility for exacerbation of mood symptoms in the context of poor compliance. Plan 1. Keep same treatment, reassess Zyprexa 7.5 if he is over-sedated in the morning.? We will continue with Wellbutrin XL. Patient does have a history of response to ECT would consider Latuda Greater than 50% of the session was spent on counseling and/or coordination of care Reason for contiued inpatient stay Substantial Risk for: inability to function
[2021-03-29 18:00] VITALS: BP 120/86; PULSE 75; RESP 18; TEMP 36.9; O2SAT 90
[2021-03-29] MEDS: OLANZapine 7.5 MG TABLET PO (20:33)
[2021-03-29 20:34] VITALS: BP 120/86; PULSE 75
[2021-03-29] MEDS: amLODIPine Besylate 2.5 MG TABLET PO (20:34)
[2021-03-29 20:45] LABS: Glucose, Whole Blood 205 mg/dL (60-115)
[2021-03-30] MEDS: Omeprazole 20 MG CAPSULE.DR PO (05:35)
[2021-03-30 06:00] VITALS: BP 121/60; PULSE 64; RESP 18; O2SAT 95
[2021-03-30 07:53] LABS: Glucose, Whole Blood 137 mg/dL (60-115)
[2021-03-30 08:00] VITALS: BP 121/60; PULSE 64
[2021-03-30] MEDS: Atorvastatin Calcium 80 MG TABLET PO (08:00)
[2021-03-30] MEDS: Metoprolol Tartrate 12.5 MG HALFTAB PO ×2 (08:00→21:09)
[2021-03-30 08:01] VITALS: BP 121/60; PULSE 64
[2021-03-30] MEDS: Isosorbide Mononitrate 60 MG TAB.ER.24H PO (08:01)
[2021-03-30] MEDS: buPROPion HCl XL 150 MG TAB.ER.24H PO (08:01)
[2021-03-30] MEDS: lamoTRIgine 25 MG TABLET PO ×2 (08:01→21:08)
[2021-03-30] MEDS: metFORMIN HCl ER 500 MG TAB.ER.24H PO (08:01)
[2021-03-30] MEDS: Finasteride 5 MG TABLET PO (08:01)
[2021-03-30 08:30] LABS: Anion Gap 11 (12-20); Blood Urea Nitrogen 17 mg/dL (9-16); Carbon Dioxide 26 mmol/L (22-29); Chloride 106 mmol/L (96-108); Creatinine Clr Calc Pharmacy 57.5; Estimated Glomerular Filt Rate > 60; Glucose Random 169 mg/dL (60-115); Potassium 4.7 mmol/L (3.3-5.1); Sodium 138 mmol/L (135-145)
[2021-03-30 08:38] LABS: Calcium 10.3 mg/dL (8.4-10.2)
--- NOTE | 2021-03-30 14:02 | P.PNPSI_ITS ---
Subjective Subjective Date of Service: 03/30/21 Reason For Visit: Depression ? OD Sub abuse Subjective Notes: Conditional Voluntary Interim History: The nursing staff reported that the patient has doing fine. He denies suicidal ideation and he wants to interact more, he is pushing himself to attend to groups. On interview, the patient denies new symptoms he looks more, but still dysphoric Medication Compliance: Yes Side effects from medications: No Attending Groups: Intermittent Review of Systems Acute medical concerns: No Medical Review of Systems: unchanged Mental Status Exam Mental Status Exam Patient Appearance: Well Grooomed Patient Orientation: Person Level of Consciousness: Awake Patient Behavior: Appropriate Mood Description: Apathetic Affect Description: Anxious Patient Cognition Impaired: Yes Ability to Follow Directions: Good Speech Pattern: Clear Hallucinations: None Delusions: Not Present Thought Process: Disoriented Thought Content: positive for Poverty of Content Judgement: Fair Diagnostics Vital Signs (24Hr): Vital Signs - 24 hr 03/29/21 18:00 03/29/21 20:34 03/30/21 06:00 Temperature 98.4 F Pulse Rate 75 75 64 Respiratory Rate 18 18 Blood Pressure 120/86 120/86 121/60 Pulse Oximetry 90 L 95 03/30/21 08:00 03/30/21 08:01 Temperature Pulse Rate 64 64 Respiratory Rate Blood Pressure 121/60 121/60 Pulse Oximetry Body Mass Index 25.0 Labs Results: 03/16/21 19:42 03/30/21 08:02 Labs: Laboratory Results - last 48 hr 03/28/21 03/29/21 03/29/21 21:46 07:40 20:39 Sodium Potassium Chloride Carbon Dioxide Anion Gap BUN Creatinine Estim Creat Clear Calc Estimated GFR POC Glucose 176 H 147 H 205 H Random Glucose Calcium 03/30/21 03/30/21 07:42 08:02 Sodium 138 Potassium 4.7 Chloride 106 Carbon Dioxide 26 Anion Gap 11 L BUN 17 H Creatinine 0.92 Estim Creat Clear Calc 57.5 Estimated GFR > 60 POC Glucose 137 H Random Glucose 169 H D Calcium 10.3 H Imaging Radiology Impressions: ITS Impressions Cervical Spine CT 03/16/21 15:12 IMPRESSION: 1. No acute intracranial pathology. 2. No CT evidence of acute cervical spine fracture or traumatic subluxation 3. Irregular 1.5 cm lesion right upper lobe. This is chronic unchanged since CAT scan of December 03, 2019. Elbow X-Ray 03/16/21 15:12 IMPRESSION: Arthritis. No fracture or dislocation seen. EXAMINATION: Right elbow x-ray CLINICAL INFORMATION: Pain post fall COMPARISON: None. TECHNIQUE: 3 views of the right elbow FINDINGS: There is a comminuted displaced fracture of the olecranon. No other fracture is seen. Joint spaces are normal. There is an elbow joint effusion. There is soft tissue swelling over the fracture. IMPRESSION: Comminuted displaced fracture of the olecranon. EXAMINATION: Right shoulder x-ray CLINICAL INFORMATION: Pain post fall COMPARISON: None. TECHNIQUE: 3 views of the right shoulder FINDINGS: Bone alignment is normal. No fracture or dislocation is seen. The glenohumeral joint is normal. There is arthritis at the acromioclavicular joint. Soft tissues are unremarkable. IMPRESSION: Arthritis at the acromioclavicular joint. EXAMINATION: Chest x-ray CLINICAL INFORMATION: Pain post fall COMPARISON: Previous chest x-ray August 2016 TECHNIQUE: One view of the chest FINDINGS: The cardiac silhouette is slightly enlarged. Thoracic aorta is tortuous. The pulmonary tavon appear prominent. There is a new right subclavian dual chamber pacemaker. There is a small dense right upper lobe nodule that appears unchanged. The lungs are otherwise clear. There is no pleural effusion or pneumothorax. There are surgical clips in the left axilla. There are degenerative changes of the spine. IMPRESSION: No evidence for acute disease in the chest. Prominent pulmonary tavon questionable for enlarged pulmonary arteries versus lymphadenopathy. Head CT 03/16/21 15:12 IMPRESSION: 1. No acute intracranial pathology. 2. No CT evidence of acute cervical spine fracture or traumatic subluxation 3. Irregular 1.5 cm lesion right upper lobe. This is chronic unchanged since CAT scan of December 03, 2019. Shoulder X-Ray 03/16/21 15:12 IMPRESSION: Arthritis. No fracture or dislocation seen. EXAMINATION: Right elbow x-ray CLINICAL INFORMATION: Pain post fall COMPARISON: None. TECHNIQUE: 3 views of the right elbow FINDINGS: There is a comminuted displaced fracture of the olecranon. No other fracture is seen. Joint spaces are normal. There is an elbow joint effusion. There is soft tissue swelling over the fracture. IMPRESSION: Comminuted displaced fracture of the olecranon. EXAMINATION: Right shoulder x-ray CLINICAL INFORMATION: Pain post fall COMPARISON: None. TECHNIQUE: 3 views of the right shoulder FINDINGS: Bone alignment is normal. No fracture or dislocation is seen. The glenohumeral joint is normal. There is arthritis at the acromioclavicular joint. Soft tissues are unremarkable. IMPRESSION: Arthritis at the acromioclavicular joint. EXAMINATION: Chest x-ray CLINICAL INFORMATION: Pain post fall COMPARISON: Previous chest x-ray August 2016 TECHNIQUE: One view of the chest FINDINGS: The cardiac silhouette is slightly enlarged. Thoracic aorta is tortuous. The pulmonary tavon appear prominent. There is a new right subclavian dual chamber pacemaker. There is a small dense right upper lobe nodule that appears unchanged. The lungs are otherwise clear. There is no pleural effusion or pneumothorax. There are surgical clips in the left axilla. There are degenerative changes of the spine. IMPRESSION: No evidence for acute disease in the chest. Prominent pulmonary tavon questionable for enlarged pulmonary arteries versus lymphadenopathy. Wrist X-Ray 03/16/21 15:12 IMPRESSION: Arthritis. No fracture or dislocation seen. EXAMINATION: Right elbow x-ray CLINICAL INFORMATION: Pain post fall COMPARISON: None. TECHNIQUE: 3 views of the right elbow FINDINGS: There is a comminuted displaced fracture of the olecranon. No other fracture is seen. Joint spaces are normal. There is an elbow joint effusion. There is soft tissue swelling over the fracture. IMPRESSION: Comminuted displaced fracture of the olecranon. EXAMINATION: Right shoulder x-ray CLINICAL INFORMATION: Pain post fall COMPARISON: None. TECHNIQUE: 3 views of the right shoulder FINDINGS: Bone alignment is normal. No fracture or dislocation is seen. The glenohumeral joint is normal. There is arthritis at the acromioclavicular joint. Soft tissues are unremarkable. IMPRESSION: Arthritis at the acromioclavicular joint. EXAMINATION: Chest x-ray CLINICAL INFORMATION: Pain post fall COMPARISON: Previous chest x-ray August 2016 TECHNIQUE: One view of the chest FINDINGS: The cardiac silhouette is slightly enlarged. Thoracic aorta is tortuous. The pulmonary tavon appear prominent. There is a new right subclavian dual chamber pacemaker. There is a small dense right upper lobe nodule that appears unchanged. The lungs are otherwise clear. There is no pleural effusion or pneumothorax. There are surgical clips in the left axilla. There are degenerative changes of the spine. IMPRESSION: No evidence for acute disease in the chest. Prominent pulmonary tavon questionable for enlarged pulmonary arteries versus lymphadenopathy. Chest X-Ray 03/16/21 15:13 IMPRESSION: Arthritis. No fracture or dislocation seen. EXAMINATION: Right elbow x-ray CLINICAL INFORMATION: Pain post fall COMPARISON: None. TECHNIQUE: 3 views of the right elbow FINDINGS: There is a comminuted displaced fracture of the olecranon. No other fracture is seen. Joint spaces are normal. There is an elbow joint effusion. There is soft tissue swelling over the fracture. IMPRESSION: Comminuted displaced fracture of the olecranon. EXAMINATION: Right shoulder x-ray CLINICAL INFORMATION: Pain post fall COMPARISON: None. TECHNIQUE: 3 views of the right shoulder FINDINGS: Bone alignment is normal. No fracture or dislocation is seen. The glenohumeral joint is normal. There is arthritis at the acromioclavicular joint. Soft tissues are unremarkable. IMPRESSION: Arthritis at the acromioclavicular joint. EXAMINATION: Chest x-ray CLINICAL INFORMATION: Pain post fall COMPARISON: Previous chest x-ray August 2016 TECHNIQUE: One view of the chest FINDINGS: The cardiac silhouette is slightly enlarged. Thoracic aorta is tortuous. The pulmonary tavon appear prominent. There is a new right subclavian dual chamber pacemaker. There is a small dense right upper lobe nodule that appears unchanged. The lungs are otherwise clear. There is no pleural effusion or pneumothorax. There are surgical clips in the left axilla. There are degenerative changes of the spine. IMPRESSION: No evidence for acute disease in the chest. Prominent pulmonary tavon questionable for enlarged pulmonary arteries versus lymphadenopathy. Elbow X-Ray 03/25/21 14:11 IMPRESSION: No change in the comminuted displaced olecranon fracture. Medications Medications Current Medications Acetaminophen (Acetaminophen 325 Mg Tablet) 650 mg PO Q6H PRN PRN Reason: Headache/Pain Mild Scale (1-3) Acetaminophen (Acetaminophen 325 Mg Tablet) 650 mg PO Q6H PRN PRN Reason: Headache/Pain Mild Scale (1-3) Al Hydroxide/Mg Hydroxide (Magnesium Hydrox/Alum Hydrox 30 Ml Oral.Susp) 30 ml PO Q6H PRN PRN Reason: Heartburn/Nausea Alendronate Sodium (Alendronate Sodium 70 Mg Tablet) 70 mg PO [facility] Last Admin: 03/27/21 13:27 Dose: Not Given Documented by: Amlodipine Besylate (Amlodipine Besylate 2.5 Mg Tablet) 2.5 mg PO [facility]; Protocol Last Admin: 03/29/21 20:34 Dose: 2.5 mg Documented by: Atorvastatin Calcium (Atorvastatin Calcium 80 Mg Tablet) 80 mg PO [facility]ILY [facility] Last Admin: 03/30/21 08:00 Dose: 80 mg Documented by: Bupropion HCl (Bupropion Hcl Xl 150 Mg Tab.Er.24h) 150 mg PO [facility]ILY [facility] Last Admin: 03/30/21 08:01 Dose: 150 mg Documented by: Finasteride (Finasteride 5 Mg Tablet) 5 mg PO [facility] Last Admin: 03/30/21 08:01 Dose: 5 mg Documented by: Hydroxyzine HCl (Hydroxyzine Hcl 25 Mg Tablet) 25 mg PO Q6H PRN PRN Reason: Anxiety Isosorbide Mononitrate (Isosorbide Mononitrate 60 Mg Tab.Er.24h) 60 mg PO [facility]; Protocol Last Admin: 03/30/21 08:01 Dose: 60 mg Documented by: Lamotrigine (Lamotrigine 25 Mg Tablet) 25 mg PO BID [facility] Last Admin: 03/30/21 08:01 Dose: 25 mg Documented by: Magnesium Hydroxide (Milk Of Magnesia 30 Ml Oral.Susp) 30 ml PO DAILY PRN PRN Reason: Constipation Magnesium Hydroxide (Milk Of Magnesia 30 Ml Oral.Susp) 30 ml PO DAILY PRN PRN Reason: Constipation Melatonin (Melatonin 3 Mg Tablet) 3 mg PO BEDTIME PRN PRN Reason: insomnia Metformin HCl (Metformin Hcl Er 500 Mg Tab.Er.24h) 500 mg PO [facility]ILY [facility] Last Admin: 03/30/21 08:01 Dose: 500 mg Documented by: Metoprolol Tartrate (Metoprolol Tartrate 12.5 Mg Halftab) 12.5 mg PO BID [facility]; Protocol Last Admin: 03/30/21 08:00 Dose: 12.5 mg Documented by: Patient Own Med ( Alfuzosin Hcl Er 10mg) 1 each PO [facility] Last Admin: 03/29/21 20:34 Dose: 1 each Documented by: Patient Own Med ( (Lumigan 0.01% Soln)) 1 each EYE-BOTH [facility] Last Admin: 03/29/21 20:35 Dose: 1 each Documented by: Olanzapine (Olanzapine 7.5 Mg Tablet) 7.5 mg PO [facility] Last Admin: 03/29/21 20:33 Dose: 7.5 mg Documented by: Omeprazole (Omeprazole 20 Mg Shweta.) 20 mg PO DAILY@0630 [facility] Last Admin: 03/30/21 05:35 Dose: 20 mg Documented by: Pharmacy Consult (Consult Rx Perform Med Rec) 1 each MISCELLANE ONCE PRN PRN Reason: Consult order Pharmacy Consult (Consult Rx Perform Med Rec) 1 each MISCELLANE ONCE PRN PRN Reason: Consult order Trazodone HCl (Trazodone Hcl 50 Mg Tablet) 50 mg PO BEDTIME PRN PRN Reason: Insomnia Last Admin: 03/20/21 01:20 Dose: 50 mg Documented by: Allergies Allergies Allergy/AdvReac Type Severity Reaction Status Date / Time metoprolol AdvReac Unknown bradycardia Verified 03/16/21 14:28 timolol AdvReac Unknown low bp Verified 03/16/21 14:28 tamsulosin [From Flomax] AdvReac Diarrhea Verified 03/22/21 13:42 beta blockers AdvReac Hypotension Uncoded 03/22/21 13:46 Assessment & Plan Assessment & Plan (1) Bipolar disorder: Status: Acute Code(s): F31.9 - Bipolar disorder, unspecified (2) Elbow fracture, right: Qualifiers: Encounter type: initial encounter Fracture type: closed Qualified Co de(s): S42.401A - Unspecified fracture of lower end of right humerus, initial encounter for closed fracture Status: Acute Code(s): S42.401A - Unspecified fracture of lower end of right humerus, initial encounter for closed fracture Assessment and Plan: The patient is an elderly male with a history of bipolar disorder with good social support referred to the facility for exacerbation of mood symptoms in the context of poor compliance. Plan 1. Keep same treatment, reassess Zyprexa 7.5 if he is over-sedated in the morning.? We will continue with Wellbutrin XL. Patient does have a history of response to ECT but at this moment it seems that he is responding to medication management. We will have family meeting soon. Greater than 50% of the session was spent on counseling and/or coordination of care Reason for contiued inpatient stay Substantial Risk for: inability to function, rapid decompensation and med/psych decompensation
[2021-03-30 20:45] VITALS: BP 121/68; PULSE 65; RESP 16; TEMP 37.7; O2SAT 94
[2021-03-30 21:08] VITALS: BP 121/68; PULSE 65
[2021-03-30] MEDS: amLODIPine Besylate 2.5 MG TABLET PO (21:08)
[2021-03-30] MEDS: OLANZapine 7.5 MG TABLET PO (21:08)
[2021-03-30 21:36] LABS: Glucose, Whole Blood 211 mg/dL (60-115)
[2021-03-31] MEDS: Acetaminophen 325 MG TABLET 650 MG PO ×2 (04:37→23:54)
[2021-03-31] MEDS: Omeprazole 20 MG CAPSULE.DR PO (07:17)
[2021-03-31 07:47] LABS: Glucose, Whole Blood 139 mg/dL (60-115)
[2021-03-31] MEDS: Finasteride 5 MG TABLET PO (08:00)
[2021-03-31 08:01] VITALS: BP 133/84; PULSE 74
[2021-03-31] MEDS: Metoprolol Tartrate 12.5 MG HALFTAB PO ×2 (08:01→20:20)
[2021-03-31 08:02] VITALS: BP 133/84; PULSE 74
[2021-03-31] MEDS: Isosorbide Mononitrate 60 MG TAB.ER.24H PO (08:02)
[2021-03-31] MEDS: buPROPion HCl XL 150 MG TAB.ER.24H PO (08:04)
[2021-03-31] MEDS: Atorvastatin Calcium 80 MG TABLET PO (08:04)
[2021-03-31] MEDS: metFORMIN HCl ER 500 MG TAB.ER.24H PO (08:05)
[2021-03-31] MEDS: lamoTRIgine 25 MG TABLET PO ×2 (08:05→22:03)
[2021-03-31 08:26] VITALS: BP 133/84; PULSE 74; TEMP 36.3; O2SAT 99
--- NOTE | 2021-03-31 15:13 | P.PNPSI_ITS ---
Subjective Subjective Date of Service: 03/31/21 Reason For Visit: Depression ? OD Sub abuse Subjective Notes: Conditional Voluntary Interim History: The nursing staff reports the patient's affect is flat, he has a restless sleep but good appetite. He complained of pain on his in length last night. The social work instructor reported that will have a family meeting tomorrow. On interview the patient denies new symptoms but he seems flat still with racing thoughts. He agreed to increase Zyprexa to 10 mg p.o. q.h.s. Medication Compliance: Yes Side effects from medications: No Attending Groups: Intermittent Review of Systems Acute medical concerns: No Medical Review of Systems: unchanged Mental Status Exam Mental Status Exam Patient Appearance: Well Grooomed Patient Orientation: Person and Situation Level of Consciousness: Awake Patient Behavior: Cooperative Mood Description: Depressed Affect Description: Constricted Patient Cognition Impaired: Yes Ability to Follow Directions: Good Speech Pattern: Clear Hallucinations: None Delusions: Not Present Thought Process: Distracted and Slowed Thinking Thought Content: positive for Poverty of Content and positive for Thought Blocking Judgement: Fair Diagnostics Vital Signs (24Hr): Vital Signs - 24 hr 03/30/21 20:45 03/30/21 21:08 03/31/21 08:01 Temperature 99.9 F Pulse Rate 65 65 74 Respiratory Rate 16 Blood Pressure 121/68 121/68 133/84 Pulse Oximetry 94 03/31/21 08:02 03/31/21 08:26 Temperature 97.3 F Pulse Rate 74 74 Respiratory Rate Blood Pressure 133/84 133/84 Pulse Oximetry 99 Body Mass Index 25.0 Labs Results: 03/16/21 19:42 03/30/21 08:02 Labs: Laboratory Results - last 48 hr 03/29/21 03/30/21 03/30/21 20:39 07:42 08:02 Sodium 138 Potassium 4.7 Chloride 106 Carbon Dioxide 26 Anion Gap 11 L BUN 17 H Creatinine 0.92 Estim Creat Clear Calc 57.5 Estimated GFR > 60 POC Glucose 205 H 137 H Random Glucose 169 H D Calcium 10.3 H 03/30/21 03/31/21 21:33 07:31 Sodium Potassium Chloride Carbon Dioxide Anion Gap BUN Creatinine Estim Creat Clear Calc Estimated GFR POC Glucose 211 H 139 H Random Glucose Calcium Imaging Radiology Impressions: ITS Impressions Cervical Spine CT 03/16/21 15:12 IMPRESSION: 1. No acute intracranial pathology. 2. No CT evidence of acute cervical spine fracture or traumatic subluxation 3. Irregular 1.5 cm lesion right upper lobe. This is chronic unchanged since CAT scan of December 03, 2019. Elbow X-Ray 03/16/21 15:12 IMPRESSION: Arthritis. No fracture or dislocation seen. EXAMINATION: Right elbow x-ray CLINICAL INFORMATION: Pain post fall COMPARISON: None. TECHNIQUE: 3 views of the right elbow FINDINGS: There is a comminuted displaced fracture of the olecranon. No other fracture is seen. Joint spaces are normal. There is an elbow joint effusion. There is soft tissue swelling over the fracture. IMPRESSION: Comminuted displaced fracture of the olecranon. EXAMINATION: Right shoulder x-ray CLINICAL INFORMATION: Pain post fall COMPARISON: None. TECHNIQUE: 3 views of the right shoulder FINDINGS: Bone alignment is normal. No fracture or dislocation is seen. The glenohumeral joint is normal. There is arthritis at the acromioclavicular joint. Soft tissues are unremarkable. IMPRESSION: Arthritis at the acromioclavicular joint. EXAMINATION: Chest x-ray CLINICAL INFORMATION: Pain post fall COMPARISON: Previous chest x-ray August 2016 TECHNIQUE: One view of the chest FINDINGS: The cardiac silhouette is slightly enlarged. Thoracic aorta is tortuous. The pulmonary tavon appear prominent. There is a new right subclavian dual chamber pacemaker. There is a small dense right upper lobe nodule that appears unchanged. The lungs are otherwise clear. There is no pleural effusion or pneumothorax. There are surgical clips in the left axilla. There are degenerative changes of the spine. IMPRESSION: No evidence for acute disease in the chest. Prominent pulmonary tavon questionable for enlarged pulmonary arteries versus lymphadenopathy. Head CT 03/16/21 15:12 IMPRESSION: 1. No acute intracranial pathology. 2. No CT evidence of acute cervical spine fracture or traumatic subluxation 3. Irregular 1.5 cm lesion right upper lobe. This is chronic unchanged since CAT scan of December 03, 2019. Shoulder X-Ray 03/16/21 15:12 IMPRESSION: Arthritis. No fracture or dislocation seen. EXAMINATION: Right elbow x-ray CLINICAL INFORMATION: Pain post fall COMPARISON: None. TECHNIQUE: 3 views of the right elbow FINDINGS: There is a comminuted displaced fracture of the olecranon. No other fracture is seen. Joint spaces are normal. There is an elbow joint effusion. There is soft tissue swelling over the fracture. IMPRESSION: Comminuted displaced fracture of the olecranon. EXAMINATION: Right shoulder x-ray CLINICAL INFORMATION: Pain post fall COMPARISON: None. TECHNIQUE: 3 views of the right shoulder FINDINGS: Bone alignment is normal. No fracture or dislocation is seen. The glenohumeral joint is normal. There is arthritis at the acromioclavicular joint. Soft tissues are unremarkable. IMPRESSION: Arthritis at the acromioclavicular joint. EXAMINATION: Chest x-ray CLINICAL INFORMATION: Pain post fall COMPARISON: Previous chest x-ray August 2016 TECHNIQUE: One view of the chest FINDINGS: The cardiac silhouette is slightly enlarged. Thoracic aorta is tortuous. The pulmonary tavon appear prominent. There is a new right subclavian dual chamber pacemaker. There is a small dense right upper lobe nodule that appears unchanged. The lungs are otherwise clear. There is no pleural effusion or pneumothorax. There are surgical clips in the left axilla. There are degenerative changes of the spine. IMPRESSION: No evidence for acute disease in the chest. Prominent pulmonary tavon questionable for enlarged pulmonary arteries versus lymphadenopathy. Wrist X-Ray 03/16/21 15:12 IMPRESSION: Arthritis. No fracture or dislocation seen. EXAMINATION: Right elbow x-ray CLINICAL INFORMATION: Pain post fall COMPARISON: None. TECHNIQUE: 3 views of the right elbow FINDINGS: There is a comminuted displaced fracture of the olecranon. No other fracture is seen. Joint spaces are normal. There is an elbow joint effusion. There is soft tissue swelling over the fracture. IMPRESSION: Comminuted displaced fracture of the olecranon. EXAMINATION: Right shoulder x-ray CLINICAL INFORMATION: Pain post fall COMPARISON: None. TECHNIQUE: 3 views of the right shoulder FINDINGS: Bone alignment is normal. No fracture or dislocation is seen. The glenohumeral joint is normal. There is arthritis at the acromioclavicular joint. Soft tissues are unremarkable. IMPRESSION: Arthritis at the acromioclavicular joint. EXAMINATION: Chest x-ray CLINICAL INFORMATION: Pain post fall COMPARISON: Previous chest x-ray August 2016 TECHNIQUE: One view of the chest FINDINGS: The cardiac silhouette is slightly enlarged. Thoracic aorta is tortuous. The pulmonary tavon appear prominent. There is a new right subclavian dual chamber pacemaker. There is a small dense right upper lobe nodule that appears unchanged. The lungs are otherwise clear. There is no pleural effusion or pneumothorax. There are surgical clips in the left axilla. There are degenerative changes of the spine. IMPRESSION: No evidence for acute disease in the chest. Prominent pulmonary tavon questionable for enlarged pulmonary arteries versus lymphadenopathy. Chest X-Ray 03/16/21 15:13 IMPRESSION: Arthritis. No fracture or dislocation seen. EXAMINATION: Right elbow x-ray CLINICAL INFORMATION: Pain post fall COMPARISON: None. TECHNIQUE: 3 views of the right elbow FINDINGS: There is a comminuted displaced fracture of the olecranon. No other fracture is seen. Joint spaces are normal. There is an elbow joint effusion. There is soft tissue swelling over the fracture. IMPRESSION: Comminuted displaced fracture of the olecranon. EXAMINATION: Right shoulder x-ray CLINICAL INFORMATION: Pain post fall COMPARISON: None. TECHNIQUE: 3 views of the right shoulder FINDINGS: Bone alignment is normal. No fracture or dislocation is seen. The glenohumeral joint is normal. There is arthritis at the acromioclavicular joint. Soft tissues are unremarkable. IMPRESSION: Arthritis at the acromioclavicular joint. EXAMINATION: Chest x-ray CLINICAL INFORMATION: Pain post fall COMPARISON: Previous chest x-ray August 2016 TECHNIQUE: One view of the chest FINDINGS: The cardiac silhouette is slightly enlarged. Thoracic aorta is tortuous. The pulmonary tavon appear prominent. There is a new right subclavian dual chamber pacemaker. There is a small dense right upper lobe nodule that appears unchanged. The lungs are otherwise clear. There is no pleural effusion or pneumothorax. There are surgical clips in the left axilla. There are degenerative changes of the spine. IMPRESSION: No evidence for acute disease in the chest. Prominent pulmonary tavon questionable for enlarged pulmonary arteries versus lymphadenopathy. Elbow X-Ray 03/25/21 14:11 IMPRESSION: No change in the comminuted displaced olecranon fracture. Medications Medications Current Medications Acetaminophen (Acetaminophen 325 Mg Tablet) 650 mg PO Q6H PRN PRN Reason: Headache/Pain Mild Scale (1-3) Last Admin: 03/31/21 04:37 Dose: 650 mg Documented by: Acetaminophen (Acetaminophen 325 Mg Tablet) 650 mg PO Q6H PRN PRN Reason: Headache/Pain Mild Scale (1-3) Al Hydroxide/Mg Hydroxide (Magnesium Hydrox/Alum Hydrox 30 Ml Oral.Susp) 30 ml PO Q6H PRN PRN Reason: Heartburn/Nausea Alendronate Sodium (Alendronate Sodium 70 Mg Tablet) 70 mg PO SA [facility] [place] Last Admin: 03/27/21 13:27 Dose: Not Given Documented by: Amlodipine Besylate (Amlodipine Besylate 2.5 Mg Tablet) 2.5 mg PO BEDTIME [facility] [place]; Protocol Last Admin: 03/30/21 21:08 Dose: 2.5 mg Documented by: Atorvastatin Calcium (Atorvastatin Calcium 80 Mg Tablet) 80 mg PO DAILY [facility] [place] Last Admin: 03/31/21 08:04 Dose: 80 mg Documented by: Bupropion HCl (Bupropion Hcl Xl 150 Mg Tab.Er.24h) 150 mg PO DAILY [facility] [place] Last Admin: 03/31/21 08:04 Dose: 150 mg Documented by: Finasteride (Finasteride 5 Mg Tablet) 5 mg PO DAILY [facility] [place] Last Admin: 03/31/21 08:00 Dose: 5 mg Documented by: Hydroxyzine HCl (Hydroxyzine Hcl 25 Mg Tablet) 25 mg PO Q6H PRN PRN Reason: Anxiety Isosorbide Mononitrate (Isosorbide Mononitrate 60 Mg Tab.Er.24h) 60 mg PO DAILY [facility] [place]; Protocol Last Admin: 03/31/21 08:02 Dose: 60 mg Documented by: Lamotrigine (Lamotrigine 25 Mg Tablet) 25 mg PO BID [facility] [place] Last Admin: 03/31/21 08:05 Dose: 25 mg Documented by: Magnesium Hydroxide (Milk Of Magnesia 30 Ml Oral.Susp) 30 ml PO DAILY PRN PRN Reason: Constipation Magnesium Hydroxide (Milk Of Magnesia 30 Ml Oral.Susp) 30 ml PO DAILY PRN PRN Reason: Constipation Melatonin (Melatonin 3 Mg Tablet) 3 mg PO BEDTIME PRN PRN Reason: insomnia Metformin HCl (Metformin Hcl Er 500 Mg Tab.Er.24h) 500 mg PO DAILY [facility] [place] Last Admin: 03/31/21 08:05 Dose: 500 mg Documented by: Metoprolol Tartrate (Metoprolol Tartrate 12.5 Mg Halftab) 12.5 mg PO BID [facility] [place]; Protocol Last Admin: 03/31/21 08:01 Dose: 12.5 mg Documented by: Patient Own Med ( Alfuzosin Hcl Er 10mg) 1 each PO BEDTIME [facility] [place] Last Admin: 03/30/21 21:08 Dose: 1 each Documented by: Patient Own Med ( (Lumigan 0.01% Soln)) 1 each EYE-BOTH BEDTIME [facility] [place] Last Admin: 03/30/21 21:08 Dose: 1 each Documented by: Olanzapine (Olanzapine 7.5 Mg Tablet) 7.5 mg PO BEDTIME [facility] [place] Last Admin: 03/30/21 21:08 Dose: 7.5 mg Documented by: Omeprazole (Omeprazole 20 Mg Capsule.Dr) 20 mg PO DAILY@0630 [facility] [place] Last Admin: 03/31/21 07:17 Dose: 20 mg Documented by: Pharmacy Consult (Consult Rx Perform Med Rec) 1 each MISCELLANE ONCE PRN PRN Reason: Consult order Pharmacy Consult (Consult Rx Perform Med Rec) 1 each MISCELLANE ONCE PRN PRN Reason: Consult order Trazodone HCl (Trazodone Hcl 50 Mg Tablet) 50 mg PO BEDTIME PRN PRN Reason: Insomnia Last Admin: 03/20/21 01:20 Dose: 50 mg Documented by: Allergies Allergies Allergy/AdvReac Type Severity Reaction Status Date / Time metoprolol AdvReac Unknown bradycardia Verified 03/16/21 14:28 timolol AdvReac Unknown low bp Verified 03/16/21 14:28 tamsulosin [From Flomax] AdvReac Diarrhea Verified 03/22/21 13:42 beta blockers AdvReac Hypotension Uncoded 03/22/21 13:46 Assessment & Plan Assessment & Plan (1) Bipolar disorder: Status: Acute Code(s): F31.9 - Bipolar disorder, unspecified (2) Elbow fracture, right: Qualifiers: Encounter type: initial encounter Fracture type: closed Qualified Code(s): S42.401A - Unspecified fracture of lower end of right humerus, initial encounter for closed fracture Status: Acute Code(s): S42.401A - Unspecified fracture of lower end of right humerus, initial encounter for closed fracture Assessment and Plan: The patient is an elderly male with a history of bipolar disorder with good social support referred to the facility for exacerbation of mood symptoms in the context of poor compliance. Plan 1. Keep same treatment, increase Zyprexa up to 10 mgif he is over-sedated in the morning.? We will continue with Wellbutrin XL. Patient does have a history of response to ECT but at this moment it seems that he is responding to medication management. We will have family meeting soon. Greater than 50% of the session was spent on counseling and/or coordination of care Reason for contiued inpatient stay Substantial Risk for: inability to function, rapid decompensation and med/psych decompensation
[2021-03-31 18:00] VITALS: BP 117/65; PULSE 65; RESP 18; TEMP 36.9; O2SAT 94
[2021-03-31 19:56] LABS: Glucose, Whole Blood 190 mg/dL (60-115)
[2021-03-31 20:19] VITALS: BP 117/65; PULSE 65
[2021-03-31] MEDS: amLODIPine Besylate 2.5 MG TABLET PO (20:19)
[2021-03-31 20:20] VITALS: BP 117/65; PULSE 65
[2021-03-31] MEDS: OLANZapine 10 MG TABLET PO (20:21)
[2021-04-01 06:00] VITALS: BP 140/75; PULSE 71; RESP 16; TEMP 36.3; O2SAT 94
[2021-04-01] MEDS: Omeprazole 20 MG CAPSULE.DR PO (06:17)
[2021-04-01 07:00] VITALS: BMI 24.9
[2021-04-01 08:03] LABS: Glucose, Whole Blood 150 mg/dL (60-115)
[2021-04-01] MEDS: Atorvastatin Calcium 80 MG TABLET PO (09:57)
[2021-04-01] MEDS: Finasteride 5 MG TABLET PO (09:57)
[2021-04-01 09:58] VITALS: BP 140/75; PULSE 71
[2021-04-01] MEDS: Metoprolol Tartrate 12.5 MG HALFTAB PO ×2 (09:58→20:37)
[2021-04-01] MEDS: metFORMIN HCl ER 500 MG TAB.ER.24H PO (09:58)
[2021-04-01] MEDS: buPROPion HCl XL 150 MG TAB.ER.24H PO (09:58)
[2021-04-01] MEDS: Isosorbide Mononitrate 60 MG TAB.ER.24H PO (09:58)
[2021-04-01] MEDS: lamoTRIgine 25 MG TABLET PO ×2 (09:58→20:37)
[2021-04-01 10:10] LABS: Anion Gap 11 (12-20); Blood Urea Nitrogen 17 mg/dL (9-16); Calcium 9.6 mg/dL (8.4-10.2); Carbon Dioxide 27 mmol/L (22-29); Chloride 105 mmol/L (96-108); Creatinine Clr Calc Pharmacy 57.5; Estimated Glomerular Filt Rate > 60; Glucose Random 216 mg/dL (60-115); Potassium 4.6 mmol/L (3.3-5.1); Sodium 138 mmol/L (135-145)
--- NOTE | 2021-04-01 11:40 | PC.NURSE ---
Pt's left knee is swollen 2+ non-pitting, warm to the touch. Pt reports knee is painful when attempting to bend, limps when ambulating. X-ray and hospitalist consult ordered.
[2021-04-01] MEDS: Celecoxib 200 MG CAPSULE PO ×2 (13:33→20:37)
--- NOTE | 2021-04-01 13:43 | P.PNPSI_ITS ---
Subjective Subjective Date of Service: 04/01/21 Reason For Visit: Depression ? OD Sub abuse Subjective Notes: Conditional Voluntary Interim History: The nursing staff reported that he couldn't sleep well due to knee pain. Today, the Orthopedics PA visited him regarding his knee pain and left arm fracture. He doesn't need the cast at this moment. We had a family meeting and they agreed to continue the treatment with Zyprexa 10 to get rid off hypomania and if his dysphoria continues, we will consider ECT. Still with some residual racing thoughts but his affect is brighter. Mental Status Exam Mental Status Exam Patient Appearance: Well Grooomed Patient Orientation: Person and Situation Level of Consciousness: Awake and Appropriate Patient Behavior: Guarded Mood Description: Withdrawn Affect Description: Labile Patient Cognition Impaired: Yes Ability to Follow Directions: Good Speech Pattern: Clear Hallucinations: None Delusions: Not Present Thought Process: Distracted and Evasive Thought Content: positive for Poverty of Content and positive for Evasive Judgement: Fair Diagnostics Vital Signs (24Hr): Vital Signs - 24 hr 03/31/21 18:00 03/31/21 20:19 03/31/21 20:20 Temperature 98.4 F Pulse Rate 65 65 65 Respiratory Rate 18 Blood Pressure 117/65 117/65 117/65 Pulse Oximetry 94 04/01/21 06:00 04/01/21 09:58 Temperature 97.3 F Pulse Rate 71 71 Respiratory Rate 16 Blood Pressure 140/75 H 140/75 H Pulse Oximetry 94 Body Mass Index 25.0 Labs Results: 03/16/21 19:42 04/01/21 09:41 Labs: Laboratory Results - last 48 hr 03/30/21 03/31/21 03/31/21 21:33 07:31 19:52 Sodium Potassium Chloride Carbon Dioxide Anion Gap BUN Creatinine Estim Creat Clear Calc Estimated GFR POC Glucose 211 H 139 H 190 H Random Glucose Calcium 04/01/21 04/01/21 07:59 09:41 Sodium 138 Potassium 4.6 Chloride 105 Carbon Dioxide 27 Anion Gap 11 L BUN 17 H Creatinine 0.92 Estim Creat Clear Calc 57.5 Estimated GFR > 60 POC Glucose 150 H Random Glucose 216 H Calcium 9.6 D Imaging Radiology Impressions: ITS Impressions Cervical Spine CT 03/16/21 15:12 IMPRESSION: 1. No acute intracranial pathology. 2. No CT evidence of acute cervical spine fracture or traumatic subluxation 3. Irregular 1.5 cm lesion right upper lobe. This is chronic unchanged since CAT scan of December 03, 2019. Elbow X-Ray 03/16/21 15:12 IMPRESSION: Arthritis. No fracture or dislocation seen. EXAMINATION: Right elbow x-ray CLINICAL INFORMATION: Pain post fall COMPARISON: None. TECHNIQUE: 3 views of the right elbow FINDINGS: There is a comminuted displaced fracture of the olecranon. No other fracture is seen. Joint spaces are normal. There is an elbow joint effusion. There is soft tissue swelling over the fracture. IMPRESSION: Comminuted displaced fracture of the olecranon. EXAMINATION: Right shoulder x-ray CLINICAL INFORMATION: Pain post fall COMPARISON: None. TECHNIQUE: 3 views of the right shoulder FINDINGS: Bone alignment is normal. No fracture or dislocation is seen. The glenohumeral joint is normal. There is arthritis at the acromioclavicular joint. Soft tissues are unremarkable. IMPRESSION: Arthritis at the acromioclavicular joint. EXAMINATION: Chest x-ray CLINICAL INFORMATION: Pain post fall COMPARISON: Previous chest x-ray August 2016 TECHNIQUE: One view of the chest FINDINGS: The cardiac silhouette is slightly enlarged. Thoracic aorta is tortuous. The pulmonary tavon appear prominent. There is a new right subclavian dual chamber pacemaker. There is a small dense right upper lobe nodule that appears unchanged. The lungs are otherwise clear. There is no pleural effusion or pneumothorax. There are surgical clips in the left axilla. There are degenerative changes of the spine. IMPRESSION: No evidence for acute disease in the chest. Prominent pulmonary tavon questionable for enlarged pulmonary arteries versus lymphadenopathy. Head CT 03/16/21 15:12 IMPRESSION: 1. No acute intracranial pathology. 2. No CT evidence of acute cervical spine fracture or traumatic subluxation 3. Irregular 1.5 cm lesion right upper lobe. This is chronic unchanged since CAT scan of December 03, 2019. Shoulder X-Ray 03/16/21 15:12 IMPRESSION: Arthritis. No fracture or dislocation seen. EXAMINATION: Right elbow x-ray CLINICAL INFORMATION: Pain post fall COMPARISON: None. TECHNIQUE: 3 views of the right elbow FINDINGS: There is a comminuted displaced fracture of the olecranon. No other fracture is seen. Joint spaces are normal. There is an elbow joint effusion. There is soft tissue swelling over the fracture. IMPRESSION: Comminuted displaced fracture of the olecranon. EXAMINATION: Right shoulder x-ray CLINICAL INFORMATION: Pain post fall COMPARISON: None. TECHNIQUE: 3 views of the right shoulder FINDINGS: Bone alignment is normal. No fracture or dislocation is seen. The glenohumeral joint is normal. There is arthritis at the acromioclavicular joint. Soft tissues are unremarkable. IMPRESSION: Arthritis at the acromioclavicular joint. EXAMINATION: Chest x-ray CLINICAL INFORMATION: Pain post fall COMPARISON: Previous chest x-ray August 2016 TECHNIQUE: One view of the chest FINDINGS: The cardiac silhouette is slightly enlarged. Thoracic aorta is tortuous. The pulmonary tavon appear prominent. There is a new right subclavian dual chamber pacemaker. There is a small dense right upper lobe nodule that appears unchanged. The lungs are otherwise clear. There is no pleural effusion or pneumothorax. There are surgical clips in the left axilla. There are degenerative changes of the spine. IMPRESSION: No evidence for acute disease in the chest. Prominent pulmonary tavon questionable for enlarged pulmonary arteries versus lymphadenopathy. Wrist X-Ray 03/16/21 15:12 IMPRESSION: Arthritis. No fracture or dislocation seen. EXAMINATION: Right elbow x-ray CLINICAL INFORMATION: Pain post fall COMPARISON: None. TECHNIQUE: 3 views of the right elbow FINDINGS: There is a comminuted displaced fracture of the olecranon. No other fracture is seen. Joint spaces are normal. There is an elbow joint effusion. There is soft tissue swelling over the fracture. IMPRESSION: Comminuted displaced fracture of the olecranon. EXAMINATION: Right shoulder x-ray CLINICAL INFORMATION: Pain post fall COMPARISON: None. TECHNIQUE: 3 views of the right shoulder FINDINGS: Bone alignment is normal. No fracture or dislocation is seen. The glenohumeral joint is normal. There is arthritis at the acromioclavicular joint. Soft tissues are unremarkable. IMPRESSION: Arthritis at the acromioclavicular joint. EXAMINATION: Chest x-ray CLINICAL INFORMATION: Pain post fall COMPARISON: Previous chest x-ray August 2016 TECHNIQUE: One view of the chest FINDINGS: The cardiac silhouette is slightly enlarged. Thoracic aorta is tortuous. The pulmonary tavon appear prominent. There is a new right subclavian dual chamber pacemaker. There is a small dense right upper lobe nodule that appears unchanged. The lungs are otherwise clear. There is no pleural effusion or pneumothorax. There are surgical clips in the left axilla. There are degenerative changes of the spine. IMPRESSION: No evidence for acute disease in the chest. Prominent pulmonary tavon questionable for enlarged pulmonary arteries versus lymphadenopathy. Chest X-Ray 03/16/21 15:13 IMPRESSION: Arthritis. No fracture or dislocation seen. EXAMINATION: Right elbow x-ray CLINICAL INFORMATION: Pain post fall COMPARISON: None. TECHNIQUE: 3 views of the right elbow FINDINGS: There is a comminuted displaced fracture of the olecranon. No other fracture is seen. Joint spaces are normal. There is an elbow joint effusion. There is soft tissue swelling over the fracture. IMPRESSION: Comminuted displaced fracture of the olecranon. EXAMINATION: Right shoulder x-ray CLINICAL INFORMATION: Pain post fall COMPARISON: None. TECHNIQUE: 3 views of the right shoulder FINDINGS: Bone alignment is normal. No fracture or dislocation is seen. The glenohumeral joint is normal. There is arthritis at the acromioclavicular joint. Soft tissues are unremarkable. IMPRESSION: Arthritis at the acromioclavicular joint. EXAMINATION: Chest x-ray CLINICAL INFORMATION: Pain post fall COMPARISON: Previous chest x-ray August 2016 TECHNIQUE: One view of the chest FINDINGS: The cardiac silhouette is slightly enlarged. Thoracic aorta is tortuous. The pulmonary tavon appear prominent. There is a new right subclavian dual chamber pacemaker. There is a small dense right upper lobe nodule that appears unchanged. The lungs are otherwise clear. There is no pleural effusion or pneumothorax. There are surgical clips in the left axilla. There are degenerative changes of the spine. IMPRESSION: No evidence for acute disease in the chest. Prominent pulmonary tavon questionable for enlarged pulmonary arteries versus lymphadenopathy. Elbow X-Ray 03/25/21 14:11 IMPRESSION: No change in the comminuted displaced olecranon fracture. Knee X-Ray 04/01/21 11:28 IMPRESSION: Moderate to large joint effusion and degenerative changes. Medications Medications Current Medications Acetaminophen (Acetaminophen 325 Mg Tablet) 650 mg PO Q6H PRN PRN Reason: Headache/Pain Mild Scale (1-3) Last Admin: 03/31/21 23:54 Dose: 650 mg Documented by: Acetaminophen (Acetaminophen 325 Mg Tablet) 650 mg PO Q6H PRN PRN Reason: Headache/Pain Mild Scale (1-3) Al Hydroxide/Mg Hydroxide (Magnesium Hydrox/Alum Hydrox 30 Ml Oral.Susp) 30 ml PO Q6H PRN PRN Reason: Heartburn/Nausea Alendronate Sodium (Alendronate Sodium 70 Mg Tablet) 70 mg PO SA [facility] [place] Last Admin: 03/27/21 13:27 Dose: Not Given Documented by: Amlodipine Besylate (Amlodipine Besylate 2.5 Mg Tablet) 2.5 mg PO BEDTIME [facility] [place]; Protocol Last Admin: 03/31/21 20:19 Dose: 2.5 mg Documented by: Atorvastatin Calcium (Atorvastatin Calcium 80 Mg Tablet) 80 mg PO DAILY [facility] [place] Last Admin: 04/01/21 09:57 Dose: 80 mg Documented by: Bupropion HCl (Bupropion Hcl Xl 150 Mg Tab.Er.24h) 150 mg PO DAILY [facility] [place] Last Admin: 04/01/21 09:58 Dose: 150 mg Documented by: Celecoxib (Celecoxib 200 Mg Capsule) 200 mg PO BID [facility] [place] Last Admin: 04/01/21 13:33 Dose: 200 mg Documented by: Finasteride (Finasteride 5 Mg Tablet) 5 mg PO DAILY [facility] [place] Last Admin: 04/01/21 09:57 Dose: 5 mg Documented by: Hydroxyzine HCl (Hydroxyzine Hcl 25 Mg Tablet) 25 mg PO Q6H PRN PRN Reason: Anxiety Isosorbide Mononitrate (Isosorbide Mononitrate 60 Mg Tab.Er.24h) 60 mg PO DAILY [facility] [place]; Protocol Last Admin: 04/01/21 09:58 Dose: 60 mg Documented by: Lamotrigine (Lamotrigine 25 Mg Tablet) 25 mg PO BID [facility] [place] Last Admin: 04/01/21 09:58 Dose: 25 mg Documented by: Magnesium Hydroxide (Milk Of Magnesia 30 Ml Oral.Susp) 30 ml PO DAILY PRN PRN Reason: Constipation Magnesium Hydroxide (Milk Of Magnesia 30 Ml Oral.Susp) 30 ml PO DAILY PRN PRN Reason: Constipation Melatonin (Melatonin 3 Mg Tablet) 3 mg PO BEDTIME PRN PRN Reason: insomnia Metformin HCl (Metformin Hcl Er 500 Mg Tab.Er.24h) 500 mg PO DAILY [facility] [place] Last Admin: 04/01/21 09:58 Dose: 500 mg Documented by: Metoprolol Tartrate (Metoprolol Tartrate 12.5 Mg Halftab) 12.5 mg PO BID [facility] [place]; Protocol Last Admin: 04/01/21 09:58 Dose: 12.5 mg Documented by: Patient Own Med ( Alfuzosin Hcl Er 10mg) 1 each PO BEDTIME [facility] Last Admin: 03/31/21 20:21 Dose: 1 each Documented by: Patient Own Med ( (Lumigan 0.01% Soln)) 1 each EYE-BOTH BEDTIME [facility] Last Admin: 03/31/21 22:02 Dose: 1 each Documented by: Olanzapine (Olanzapine 10 Mg Tablet) 10 mg PO BEDTIME [facility] Last Admin: 03/31/21 20:21 Dose: 10 mg Documented by: Omeprazole (Omeprazole 20 Mg Capsule.Dr) 20 mg PO DAILY@0630 [facility] [place] Last Admin: 04/01/21 06:17 Dose: 20 mg Documented by: Pharmacy Consult (Consult Rx Perform Med Rec) 1 each MISCELLANE ONCE PRN PRN Reason: Consult order Pharmacy Consult (Consult Rx Perform Med Rec) 1 each MISCELLANE ONCE PRN PRN Reason: Consult order Trazodone HCl (Trazodone Hcl 50 Mg Tablet) 50 mg PO BEDTIME PRN PRN Reason: Insomnia Last Admin: 03/20/21 01:20 Dose: 50 mg Documented by: Allergies Allergies Allergy/AdvReac Type Severity Reaction Status Date / Time metoprolol AdvReac Unknown bradycardia Verified 03/16/21 14:28 timolol AdvReac Unknown low bp Verified 03/16/21 14:28 tamsulosin [From Flomax] AdvReac Diarrhea Verified 03/22/21 13:42 beta blockers AdvReac Hypotension Uncoded 03/22/21 13:46 Assessment & Plan Assessment & Plan (1) Bipolar disorder: Status: Acute Code(s): F31.9 - Bipolar disorder, unspecified (2) Elbow fracture, right: Qualifiers: Encounter type: initial encounter Fracture type: closed Qualified Code(s): S42.401A - Unspecified fracture of lower end of right humerus, initial encounter for closed fracture Status: Acute Code(s): S42.401A - Unspecified fracture of lower end of right humerus, initial encounter for closed fracture Assessment and Plan: The patient is an elderly male with a history of bipolar disorder with good social support referred to the facility for exacerbation of mood symptoms in the context of poor compliance. Plan 1. Keep same treatment, increase Zyprexa up to 10 mgif he is over-sedated in the morning.? We will continue with Wellbutrin XL. Patient does have a history of response to ECT but at this moment it seems that he is responding to medication management. We will have family meeting soon. Greater than 50% of the session was spent on counseling and/or coordination of care Reason for contiued inpatient stay Substantial Risk for: inability to function, rapid decompensation and med/psych decompensation
--- NOTE | 2021-04-01 16:22 | PM.EVENT ---
Event Note Date of Service: 04/01/21 Event Note: Asked to see patient for knee swelling. S - Patient seen and examined. He does endorse limited mobility due to pain. Denies any trauma to the joint. O L knee with significant swelling. XR showing effusion. No erythema appreciated. ROM limited, but no major TTP A/p 80 yo M with L knee effusion -- moderate by XR. D/w Dr. Whitmore. Patient is reportedly seen by the orthopedics with plans to drain the knee. At this time, does not have signs to suggest septic joint. Will defer mgmt to ortho as they are already on the case. Please reconsult if any further questions.
[2021-04-01 18:00] VITALS: BP 115/71; PULSE 75; RESP 18; TEMP 37.1; O2SAT 95
[2021-04-01 20:37] VITALS: BP 115/71; PULSE 75
[2021-04-01] MEDS: OLANZapine 10 MG TABLET PO (20:37)
[2021-04-01] MEDS: amLODIPine Besylate 2.5 MG TABLET PO (20:37)
[2021-04-01 20:52] LABS: Glucose, Whole Blood 170 mg/dL (60-115)
[2021-04-02] MEDS: Omeprazole 20 MG CAPSULE.DR PO (07:56)
[2021-04-02] MEDS: Metoprolol Tartrate 12.5 MG HALFTAB PO ×2 (07:56→20:16)
[2021-04-02] MEDS: buPROPion HCl XL 150 MG TAB.ER.24H PO (07:57)
[2021-04-02] MEDS: Celecoxib 200 MG CAPSULE PO ×2 (07:57→20:16)
[2021-04-02] MEDS: Atorvastatin Calcium 80 MG TABLET PO (07:57)
[2021-04-02] MEDS: metFORMIN HCl ER 500 MG TAB.ER.24H PO (07:57)
[2021-04-02] MEDS: Isosorbide Mononitrate 60 MG TAB.ER.24H PO (07:57)
[2021-04-02] MEDS: Finasteride 5 MG TABLET PO (07:57)
[2021-04-02] MEDS: lamoTRIgine 25 MG TABLET PO ×2 (07:57→20:16)
[2021-04-02 08:10] LABS: Glucose, Whole Blood 149 mg/dL (60-115)
[2021-04-02 08:46] VITALS: BP 110/71; PULSE 68; RESP 18; TEMP 36.7; O2SAT 94
[2021-04-02] MEDS: Lidocaine HCl 1 % 20 ML VIAL SUBCUT (12:30)
[2021-04-02] MEDS: methylPREDNISolone acetate 40 MG VIAL INTRAARTIC (12:30)
--- NOTE | 2021-04-02 12:44 | PM.PRCOR ---
Brief Operative Note Date of procedure: 04/02/21 Pre-op diagnosis: left knee effusion, Osteoarthritis Post-op diagnosis: same Procedure: Left knee aspiration. 80 cc of cloudy yellow aspirate obtained. Knee was then injection with 4mg lidocane, 4mg bupivicane, and 1mg of depomedrol Anesthesia: none Ground Support Equipment Fitter: Neeta Collazo Pathology: none sent Condition: stable Disposition: floor
--- NOTE | 2021-04-02 14:20 | P.PNPSI_ITS ---
Subjective Subjective Date of Service: 04/02/21 Reason For Visit: Depression ? OD Sub abuse Subjective Notes: Conditional Voluntary Interim History: The nursing staff reported that the patient had flat affect but he slept well. To the orthopedics came and they did a tap on her left knee that was swollen. He feels much better. On interview, the patient denies new symptoms still with some flat affect but with less racing thoughts. We will observe Zyprexa 10 mg p.o. q.h.s. to target hypomania and reassess on Monday Mental Status Exam Mental Status Exam Patient Appearance: Well Grooomed Patient Orientation: Person Level of Consciousness: Awake Patient Behavior: Cooperative Mood Description: Constricted Affect Description: Constricted Patient Cognition Impaired: Yes Ability to Follow Directions: Good Speech Pattern: Clear Memory Description: Intact Hallucinations: None Delusions: Not Present Thought Process: Goal Oriented Thought Content: positive for Circumstantial Judgement: Fair Diagnostics Vital Signs (24Hr): Vital Signs - 24 hr 04/01/21 18:00 04/01/21 20:37 04/02/21 08:46 Temperature 98.7 F 98.0 F Pulse Rate 75 75 68 Respiratory Rate 18 18 Blood Pressure 115/71 115/71 110/71 Pulse Oximetry 95 94 Body Mass Index 24.9 Labs Results: 03/16/21 19:42 04/01/21 09:41 Labs: Laboratory Results - last 48 hr 03/31/21 04/01/21 04/01/21 19:52 07:59 09:41 Sodium 138 Potassium 4.6 Chloride 105 Carbon Dioxide 27 Anion Gap 11 L BUN 17 H Creatinine 0.92 Estim Creat Clear Calc 57.5 Estimated GFR > 60 POC Glucose 190 H 150 H Random Glucose 216 H Calcium 9.6 D 04/01/21 04/02/21 20:42 08:04 Sodium Potassium Chloride Carbon Dioxide Anion Gap BUN Creatinine Estim Creat Clear Calc Estimated GFR POC Glucose 170 H 149 H Random Glucose Calcium Imaging Radiology Impressions: ITS Impressions Cervical Spine CT 03/16/21 15:12 IMPRESSION: 1. No acute intracranial pathology. 2. No CT evidence of acute cervical spine fracture or traumatic subluxation 3. Irregular 1.5 cm lesion right upper lobe. This is chronic unchanged since CAT scan of December 03, 2019. Elbow X-Ray 03/16/21 15:12 IMPRESSION: Arthritis. No fracture or dislocation seen. EXAMINATION: Right elbow x-ray CLINICAL INFORMATION: Pain post fall COMPARISON: None. TECHNIQUE: 3 views of the right elbow FINDINGS: There is a comminuted displaced fracture of the olecranon. No other fracture is seen. Joint spaces are normal. There is an elbow joint effusion. There is soft tissue swelling over the fracture. IMPRESSION: Comminuted displaced fracture of the olecranon. EXAMINATION: Right shoulder x-ray CLINICAL INFORMATION: Pain post fall COMPARISON: None. TECHNIQUE: 3 views of the right shoulder FINDINGS: Bone alignment is normal. No fracture or dislocation is seen. The glenohumeral joint is normal. There is arthritis at the acromioclavicular joint. Soft tissues are unremarkable. IMPRESSION: Arthritis at the acromioclavicular joint. EXAMINATION: Chest x-ray CLINICAL INFORMATION: Pain post fall COMPARISON: Previous chest x-ray August 2016 TECHNIQUE: One view of the chest FINDINGS: The cardiac silhouette is slightly enlarged. Thoracic aorta is tortuous. The pulmonary tavon appear prominent. There is a new right subclavian dual chamber pacemaker. There is a small dense right upper lobe nodule that appears unchanged. The lungs are otherwise clear. There is no pleural effusion or pneumothorax. There are surgical clips in the left axilla. There are degenerative changes of the spine. IMPRESSION: No evidence for acute disease in the chest. Prominent pulmonary tavon questionable for enlarged pulmonary arteries versus lymphadenopathy. Head CT 03/16/21 15:12 IMPRESSION: 1. No acute intracranial pathology. 2. No CT evidence of acute cervical spine fracture or traumatic subluxation 3. Irregular 1.5 cm lesion right upper lobe. This is chronic unchanged since CAT scan of December 03, 2019. Shoulder X-Ray 03/16/21 15:12 IMPRESSION: Arthritis. No fracture or dislocation seen. EXAMINATION: Right elbow x-ray CLINICAL INFORMATION: Pain post fall COMPARISON: None. TECHNIQUE: 3 views of the right elbow FINDINGS: There is a comminuted displaced fracture of the olecranon. No other fracture is seen. Joint spaces are normal. There is an elbow joint effusion. There is soft tissue swelling over the fracture. IMPRESSION: Comminuted displaced fracture of the olecranon. EXAMINATION: Right shoulder x-ray CLINICAL INFORMATION: Pain post fall COMPARISON: None. TECHNIQUE: 3 views of the right shoulder FINDINGS: Bone alignment is normal. No fracture or dislocation is seen. The glenohumeral joint is normal. There is arthritis at the acromioclavicular joint. Soft tissues are unremarkable. IMPRESSION: Arthritis at the acromioclavicular joint. EXAMINATION: Chest x-ray CLINICAL INFORMATION: Pain post fall COMPARISON: Previous chest x-ray August 2016 TECHNIQUE: One view of the chest FINDINGS: The cardiac silhouette is slightly enlarged. Thoracic aorta is tortuous. The pulmonary tavon appear prominent. There is a new right subclavian dual chamber pacemaker. There is a small dense right upper lobe nodule that appears unchanged. The lungs are otherwise clear. There is no pleural effusion or pneumothorax. There are surgical clips in the left axilla. There are degenerative changes of the spine. IMPRESSION: No evidence for acute disease in the chest. Prominent pulmonary tavon questionable for enlarged pulmonary arteries versus lymphadenopathy. Wrist X-Ray 03/16/21 15:12 IMPRESSION: Arthritis. No fracture or dislocation seen. EXAMINATION: Right elbow x-ray CLINICAL INFORMATION: Pain post fall COMPARISON: None. TECHNIQUE: 3 views of the right elbow FINDINGS: There is a comminuted displaced fracture of the olecranon. No other fracture is seen. Joint spaces are normal. There is an elbow joint effusion. There is soft tissue swelling over the fracture. IMPRESSION: Comminuted displaced fracture of the olecranon. EXAMINATION: Right shoulder x-ray CLINICAL INFORMATION: Pain post fall COMPARISON: None. TECHNIQUE: 3 views of the right shoulder FINDINGS: Bone alignment is normal. No fracture or dislocation is seen. The glenohumeral joint is normal. There is arthritis at the acromioclavicular joint. Soft tissues are unremarkable. IMPRESSION: Arthritis at the acromioclavicular joint. EXAMINATION: Chest x-ray CLINICAL INFORMATION: Pain post fall COMPARISON: Previous chest x-ray August 2016 TECHNIQUE: One view of the chest FINDINGS: The cardiac silhouette is slightly enlarged. Thoracic aorta is tortuous. The pulmonary tavon appear prominent. There is a new right subclavian dual chamber pacemaker. There is a small dense right upper lobe nodule that appears unchanged. The lungs are otherwise clear. There is no pleural effusion or pneumothorax. There are surgical clips in the left axilla. There are degenerative changes of the spine. IMPRESSION: No evidence for acute disease in the chest. Prominent pulmonary tavon questionable for enlarged pulmonary arteries versus lymphadenopathy. Chest X-Ray 03/16/21 15:13 IMPRESSION: Arthritis. No fracture or dislocation seen. EXAMINATION: Right elbow x-ray CLINICAL INFORMATION: Pain post fall COMPARISON: None. TECHNIQUE: 3 views of the right elbow FINDINGS: There is a comminuted displaced fracture of the olecranon. No other fracture is seen. Joint spaces are normal. There is an elbow joint effusion. There is soft tissue swelling over the fracture. IMPRESSION: Comminuted displaced fracture of the olecranon. EXAMINATION: Right shoulder x-ray CLINICAL INFORMATION: Pain post fall COMPARISON: None. TECHNIQUE: 3 views of the right shoulder FINDINGS: Bone alignment is normal. No fracture or dislocation is seen. The glenohumeral joint is normal. There is arthritis at the acromioclavicular joint. Soft tissues are unremarkable. IMPRESSION: Arthritis at the acromioclavicular joint. EXAMINATION: Chest x-ray CLINICAL INFORMATION: Pain post fall COMPARISON: Previous chest x-ray August 2016 TECHNIQUE: One view of the chest FINDINGS: The cardiac silhouette is slightly enlarged. Thoracic aorta is tortuous. The pulmonary tavon appear prominent. There is a new right subclavian dual chamber pacemaker. There is a small dense right upper lobe nodule that appears unchanged. The lungs are otherwise clear. There is no pleural effusion or pneumothorax. There are surgical clips in the left axilla. There are degenerative changes of the spine. IMPRESSION: No evidence for acute disease in the chest. Prominent pulmonary tavon questionable for enlarged pulmonary arteries versus lymphadenopathy. Elbow X-Ray 03/25/21 14:11 IMPRESSION: No change in the comminuted displaced olecranon fracture. Knee X-Ray 04/01/21 11:28 IMPRESSION: Moderate to large joint effusion and degenerative changes. Elbow X-Ray 04/01/21 13:59 IMPRESSION: Comminuted fracture proximal olecranon. Medications Medications Current Medications Acetaminophen (Acetaminophen 325 Mg Tablet) 650 mg PO Q6H PRN PRN Reason: Headache/Pain Mild Scale (1-3) Last Admin: 03/31/21 23:54 Dose: 650 mg Documented by: Acetaminophen (Acetaminophen 325 Mg Tablet) 650 mg PO Q6H PRN PRN Reason: Headache/Pain Mild Scale (1-3) Al Hydroxide/Mg Hydroxide (Magnesium Hydrox/Alum Hydrox 30 Ml Oral.Susp) 30 ml PO Q6H PRN PRN Reason: Heartburn/Nausea Alendronate Sodium (Alendronate Sodium 70 Mg Tablet) 70 mg PO SA [facility] Last Admin: 03/27/21 13:27 Dose: Not Given Documented by: Amlodipine Besylate (Amlodipine Besylate 2.5 Mg Tablet) 2.5 mg PO BEDTIME [facility]; Protocol Last Admin: 04/01/21 20:37 Dose: 2.5 mg Documented by: Atorvastatin Calcium (Atorvastatin Calcium 80 Mg Tablet) 80 mg PO DAILY [facility] Last Admin: 04/02/21 07:57 Dose: 80 mg Documented by: Bupropion HCl (Bupropion Hcl Xl 150 Mg Tab.Er.24h) 150 mg PO DAILY [facility] Last Admin: 04/02/21 07:57 Dose: 150 mg Documented by: Celecoxib (Celecoxib 200 Mg Capsule) 200 mg PO BID [facility] Last Admin: 04/02/21 07:57 Dose: 200 mg Documented by: Finasteride (Finasteride 5 Mg Tablet) 5 mg PO DAILY [facility] Last Admin: 04/02/21 07:57 Dose: 5 mg Documented by: Hydroxyzine HCl (Hydroxyzine Hcl 25 Mg Tablet) 25 mg PO Q6H PRN PRN Reason: Anxiety Isosorbide Mononitrate (Isosorbide Mononitrate 60 Mg Tab.Er.24h) 60 mg PO DAILY [facility]; Protocol Last Admin: 04/02/21 07:57 Dose: 60 mg Documented by: Lamotrigine (Lamotrigine 25 Mg Tablet) 25 mg PO BID [facility] Last Admin: 04/02/21 07:57 Dose: 25 mg Documented by: Magnesium Hydroxide (Milk Of Magnesia 30 Ml Oral.Susp) 30 ml PO DAILY PRN PRN Reason: Constipation Magnesium Hydroxide (Milk Of Magnesia 30 Ml Oral.Susp) 30 ml PO DAILY PRN PRN Reason: Constipation Melatonin (Melatonin 3 Mg Tablet) 3 mg PO BEDTIME PRN PRN Reason: insomnia Metformin HCl (Metformin Hcl Er 500 Mg Tab.Er.24h) 500 mg PO DAILY [facility] Last Admin: 04/02/21 07:57 Dose: 500 mg Documented by: Metoprolol Tartrate (Metoprolol Tartrate 12.5 Mg Halftab) 12.5 mg PO BID [facility]; Protocol Last Admin: 04/02/21 07:56 Dose: 12.5 mg Documented by: Patient Own Med ( Alfuzosin Hcl Er 10mg) 1 each PO BEDTIME [facility] Last Admin: 04/01/21 20:39 Dose: 1 each Documented by: Patient Own Med ( (Lumigan 0.01% Soln)) 1 each EYE-BOTH BEDTIME [facility] Last Admin: 03/31/21 22:02 Dose: 1 each Documented by: Olanzapine (Olanzapine 10 Mg Tablet) 10 mg PO BEDTIME [facility] Last Admin: 04/01/21 20:37 Dose: 10 mg Documented by: Omeprazole (Omeprazole 20 Mg Capsule.Dr) 20 mg PO DAILY@0630 [facility] Last Admin: 04/02/21 07:56 Dose: 20 mg Documented by: Pharmacy Consult (Consult Rx Perform Med Rec) 1 each MISCELLANE ONCE PRN PRN Reason: Consult order Pharmacy Consult (Consult Rx Perform Med Rec) 1 each MISCELLANE ONCE PRN PRN Reason: Consult order Trazodone HCl (Trazodone Hcl 50 Mg Tablet) 50 mg PO BEDTIME PRN PRN Reason: Insomnia Last Admin: 03/20/21 01:20 Dose: 50 mg Documented by: Allergies Allergies Allergy/AdvReac Type Severity Reaction Status Date / Time metoprolol AdvReac Unknown bradycardia Verified 03/16/21 14:28 timolol AdvReac Unknown low bp Verified 03/16/21 14:28 tamsulosin [From Flomax] AdvReac Diarrhea Verified 03/22/21 13:42 beta blockers AdvReac Hypotension Uncoded 03/22/21 13:46 Assessment & Plan Assessment & Plan (1) Bipolar disorder: Status: Acute Code(s): F31.9 - Bipolar disorder, unspecified (2) Elbow fracture, right: Qualifiers: Encounter type: initial encounter Fracture type: closed Qualified Code(s): S42.401A - Unspecified fracture of lower end of right humerus, initial encounter for closed fracture Status: Acute Code(s): S42.401A - Unspecified fracture of lower end of right humerus, initial encounter for closed fracture Assessment and Plan: The patient is an elderly male with a history of bipolar disorder with good social support referred to the facility for exacerbation of mood symptoms in the context of poor compliance. Plan 1. Keep same treatment, increase Zyprexa up to 10 mgif he is over-sedated in the morning.? We will continue with Wellbutrin XL. Patient does have a history of response to ECT but at this moment it seems that he is responding to medication management. 2. We had a family meeting last and they agreed on the plan. We will observe his behavior or to see if he has flight of ideas improve with Zyprexa 10 mg and consider next week the possibility of ECT if his depression is worse. Greater than 50% of the session was spent on counseling and/or coordination of care Reason for contiued inpatient stay Substantial Risk for: inability to function, rapid decompensation and med/psych decompensation
[2021-04-02 20:15] VITALS: BP 103/61; PULSE 61
[2021-04-02] MEDS: amLODIPine Besylate 2.5 MG TABLET PO (20:15)
[2021-04-02 20:16] VITALS: BP 103/61; PULSE 61
[2021-04-02] MEDS: OLANZapine 10 MG TABLET PO (20:16)
[2021-04-02 20:25] VITALS: BP 103/61; PULSE 61; RESP 18; TEMP 37; O2SAT 95
[2021-04-02 22:26] LABS: Glucose, Whole Blood 217 mg/dL (60-115)
[2021-04-03 06:00] VITALS: BP 113/81; PULSE 71; RESP 16; TEMP 36; O2SAT 97
[2021-04-03] MEDS: Omeprazole 20 MG CAPSULE.DR PO (06:22)
[2021-04-03] MEDS: Finasteride 5 MG TABLET PO (10:09)
[2021-04-03] MEDS: lamoTRIgine 25 MG TABLET PO ×2 (10:10→20:15)
[2021-04-03] MEDS: Atorvastatin Calcium 80 MG TABLET PO (10:11)
[2021-04-03] MEDS: metFORMIN HCl ER 500 MG TAB.ER.24H PO (10:11)
[2021-04-03] MEDS: Celecoxib 200 MG CAPSULE PO ×2 (10:11→20:15)
[2021-04-03] MEDS: buPROPion HCl XL 150 MG TAB.ER.24H PO (10:12)
[2021-04-03 10:16] VITALS: BP 113/81; PULSE 71
[2021-04-03] MEDS: Metoprolol Tartrate 12.5 MG HALFTAB PO ×2 (10:16→20:15)
[2021-04-03 10:17] VITALS: BP 113/81; PULSE 71
[2021-04-03] MEDS: Isosorbide Mononitrate 60 MG TAB.ER.24H PO (10:17)
[2021-04-03 14:11] LABS: Glucose, Whole Blood 136 mg/dL (60-115)
[2021-04-03 18:00] VITALS: BP 114/71; PULSE 64; RESP 16; TEMP 36; O2SAT 97
--- NOTE | 2021-04-03 18:16 | HO.PSYCHPN ---
Subjective Subjective Date of Service: 04/03/21 Reason For Visit: Depression ? OD Sub abuse Interim History: Patient seen and discussed with team. Patient evaluated this morning and upon interview he reports his mood is okay. No questions or concerns. Feels okay with medications. Sleep and appetite are okay. No physical health complaints. Knee is feeling good. In the milieu, patient is safe but isoaltive in behavior. Denies SI/SIB/HI upon inquiry. Denies irritability or assaultive ideation. Says he feels safe. Medication Compliance: Yes Side effects from medications: No Review of Systems Medical Review of Systems: unchanged Mental Status Exam Mental Status Exam Narrative: Patient Appearance:?Well Grooomed Patient Orientation:?Person Level of Consciousness:?Awake Patient Behavior:?Cooperative Mood Description:?Constricted Affect Description:?Constricted Patient Cognition Impaired:?Yes Ability to Follow Directions:?Good Speech Pattern:?Clear Memory Description:?Intact Hallucinations:?None Delusions:?Not Present Thought Process:?Goal Oriented Thought Content:?positive for Circumstantial Judgement:?Fair Diagnostics Vital Signs (24Hr): Vital Signs - 24 hr 04/02/21 20:15 04/02/21 20:16 04/02/21 20:25 Temperature 98.6 F Pulse Rate 61 61 61 Respiratory Rate 18 Blood Pressure 103/61 103/61 103/61 Pulse Oximetry 95 04/03/21 06:00 04/03/21 10:16 04/03/21 10:17 Temperature 96.8 F Pulse Rate 71 71 71 Respiratory Rate 16 Blood Pressure 113/81 113/81 113/81 Pulse Oximetry 97 Body Mass Index 24.9 Labs Results: 03/16/21 19:42 04/01/21 09:41 Labs: Laboratory Results - last 48 hr 04/01/21 04/02/21 04/02/21 20:42 08:04 22:21 POC Glucose 170 H 149 H 217 H 04/03/21 14:05 POC Glucose 136 H Imaging Radiology Impressions: ITS Impressions Cervical Spine CT 03/16/21 15:12 IMPRESSION: 1. No acute intracranial pathology. 2. No CT evidence of acute cervical spine fracture or traumatic subluxation 3. Irregular 1.5 cm lesion right upper lobe. This is chronic unchanged since CAT scan of December 03, 2019. Elbow X-Ray 03/16/21 15:12 IMPRESSION: Arthritis. No fracture or dislocation seen. EXAMINATION: Right elbow x-ray CLINICAL INFORMATION: Pain post fall COMPARISON: None. TECHNIQUE: 3 views of the right elbow FINDINGS: There is a comminuted displaced fracture of the olecranon. No other fracture is seen. Joint spaces are normal. There is an elbow joint effusion. There is soft tissue swelling over the fracture. IMPRESSION: Comminuted displaced fracture of the olecranon. EXAMINATION: Right shoulder x-ray CLINICAL INFORMATION: Pain post fall COMPARISON: None. TECHNIQUE: 3 views of the right shoulder FINDINGS: Bone alignment is normal. No fracture or dislocation is seen. The glenohumeral joint is normal. There is arthritis at the acromioclavicular joint. Soft tissues are unremarkable. IMPRESSION: Arthritis at the acromioclavicular joint. EXAMINATION: Chest x-ray CLINICAL INFORMATION: Pain post fall COMPARISON: Previous chest x-ray August 2016 TECHNIQUE: One view of the chest FINDINGS: The cardiac silhouette is slightly enlarged. Thoracic aorta is tortuous. The pulmonary tavon appear prominent. There is a new right subclavian dual chamber pacemaker. There is a small dense right upper lobe nodule that appears unchanged. The lungs are otherwise clear. There is no pleural effusion or pneumothorax. There are surgical clips in the left axilla. There are degenerative changes of the spine. IMPRESSION: No evidence for acute disease in the chest. Prominent pulmonary tavon questionable for enlarged pulmonary arteries versus lymphadenopathy. Head CT 03/16/21 15:12 IMPRESSION: 1. No acute intracranial pathology. 2. No CT evidence of acute cervical spine fracture or traumatic subluxation 3. Irregular 1.5 cm lesion right upper lobe. This is chronic unchanged since CAT scan of December 03, 2019. Shoulder X-Ray 03/16/21 15:12 IMPRESSION: Arthritis. No fracture or dislocation seen. EXAMINATION: Right elbow x-ray CLINICAL INFORMATION: Pain post fall COMPARISON: None. TECHNIQUE: 3 views of the right elbow FINDINGS: There is a comminuted displaced fracture of the olecranon. No other fracture is seen. Joint spaces are normal. There is an elbow joint effusion. There is soft tissue swelling over the fracture. IMPRESSION: Comminuted displaced fracture of the olecranon. EXAMINATION: Right shoulder x-ray CLINICAL INFORMATION: Pain post fall COMPARISON: None. TECHNIQUE: 3 views of the right shoulder FINDINGS: Bone alignment is normal. No fracture or dislocation is seen. The glenohumeral joint is normal. There is arthritis at the acromioclavicular joint. Soft tissues are unremarkable. IMPRESSION: Arthritis at the acromioclavicular joint. EXAMINATION: Chest x-ray CLINICAL INFORMATION: Pain post fall COMPARISON: Previous chest x-ray August 2016 TECHNIQUE: One view of the chest FINDINGS: The cardiac silhouette is slightly enlarged. Thoracic aorta is tortuous. The pulmonary tavon appear prominent. There is a new right subclavian dual chamber pacemaker. There is a small dense right upper lobe nodule that appears unchanged. The lungs are otherwise clear. There is no pleural effusion or pneumothorax. There are surgical clips in the left axilla. There are degenerative changes of the spine. IMPRESSION: No evidence for acute disease in the chest. Prominent pulmonary tavon questionable for enlarged pulmonary arteries versus lymphadenopathy. Wrist X-Ray 03/16/21 15:12 IMPRESSION: Arthritis. No fracture or dislocation seen. EXAMINATION: Right elbow x-ray CLINICAL INFORMATION: Pain post fall COMPARISON: None. TECHNIQUE: 3 views of the right elbow FINDINGS: There is a comminuted displaced fracture of the olecranon. No other fracture is seen. Joint spaces are normal. There is an elbow joint effusion. There is soft tissue swelling over the fracture. IMPRESSION: Comminuted displaced fracture of the olecranon. EXAMINATION: Right shoulder x-ray CLINICAL INFORMATION: Pain post fall COMPARISON: None. TECHNIQUE: 3 views of the right shoulder FINDINGS: Bone alignment is normal. No fracture or dislocation is seen. The glenohumeral joint is normal. There is arthritis at the acromioclavicular joint. Soft tissues are unremarkable. IMPRESSION: Arthritis at the acromioclavicular joint. EXAMINATION: Chest x-ray CLINICAL INFORMATION: Pain post fall COMPARISON: Previous chest x-ray August 2016 TECHNIQUE: One view of the chest FINDINGS: The cardiac silhouette is slightly enlarged. Thoracic aorta is tortuous. The pulmonary tavon appear prominent. There is a new right subclavian dual chamber pacemaker. There is a small dense right upper lobe nodule that appears unchanged. The lungs are otherwise clear. There is no pleural effusion or pneumothorax. There are surgical clips in the left axilla. There are degenerative changes of the spine. IMPRESSION: No evidence for acute disease in the chest. Prominent pulmonary tavon questionable for enlarged pulmonary arteries versus lymphadenopathy. Chest X-Ray 03/16/21 15:13 IMPRESSION: Arthritis. No fracture or dislocation seen. EXAMINATION: Right elbow x-ray CLINICAL INFORMATION: Pain post fall COMPARISON: None. TECHNIQUE: 3 views of the right elbow FINDINGS: There is a comminuted displaced fracture of the olecranon. No other fracture is seen. Joint spaces are normal. There is an elbow joint effusion. There is soft tissue swelling over the fracture. IMPRESSION: Comminuted displaced fracture of the olecranon. EXAMINATION: Right shoulder x-ray CLINICAL INFORMATION: Pain post fall COMPARISON: None. TECHNIQUE: 3 views of the right shoulder FINDINGS: Bone alignment is normal. No fracture or dislocation is seen. The glenohumeral joint is normal. There is arthritis at the acromioclavicular joint. Soft tissues are unremarkable. IMPRESSION: Arthritis at the acromioclavicular joint. EXAMINATION: Chest x-ray CLINICAL INFORMATION: Pain post fall COMPARISON: Previous chest x-ray August 2016 TECHNIQUE: One view of the chest FINDINGS: The cardiac silhouette is slightly enlarged. Thoracic aorta is tortuous. The pulmonary tavon appear prominent. There is a new right subclavian dual chamber pacemaker. There is a small dense right upper lobe nodule that appears unchanged. The lungs are otherwise clear. There is no pleural effusion or pneumothorax. There are surgical clips in the left axilla. There are degenerative changes of the spine. IMPRESSION: No evidence for acute disease in the chest. Prominent pulmonary tavon questionable for enlarged pulmonary arteries versus lymphadenopathy. Elbow X-Ray 03/25/21 14:11 IMPRESSION: No change in the comminuted displaced olecranon fracture. Knee X-Ray 04/01/21 11:28 IMPRESSION: Moderate to large joint effusion and degenerative changes. Elbow X-Ray 04/01/21 13:59 IMPRESSION: Comminuted fracture proximal olecranon. Medications Medications Current Medications Acetaminophen (Acetaminophen 325 Mg Tablet) 650 mg PO Q6H PRN PRN Reason: Headache/Pain Mild Scale (1-3) Last Admin: 03/31/21 23:54 Dose: 650 mg Documented by: Acetaminophen (Acetaminophen 325 Mg Tablet) 650 mg PO Q6H PRN PRN Reason: Headache/Pain Mild Scale (1-3) Al Hydroxide/Mg Hydroxide (Magnesium Hydrox/Alum Hydrox 30 Ml Oral.Susp) 30 ml PO Q6H PRN PRN Reason: Heartburn/Nausea Alendronate Sodium (Alendronate Sodium 70 Mg Tablet) 70 mg PO SA [facility] Last Admin: 04/03/21 10:55 Dose: 70 mg Documented by: Amlodipine Besylate (Amlodipine Besylate 2.5 Mg Tablet) 2.5 mg PO BEDTIME [facility]; Protocol Last Admin: 04/02/21 20:15 Dose: 2.5 mg Documented by: Atorvastatin Calcium (Atorvastatin Calcium 80 Mg Tablet) 80 mg PO DAILY [facility] Last Admin: 04/03/21 10:11 Dose: 80 mg Documented by: Bupropion HCl (Bupropion Hcl Xl 150 Mg Tab.Er.24h) 150 mg PO DAILY [facility] Last Admin: 04/03/21 10:12 Dose: 150 mg Documented by: Celecoxib (Celecoxib 200 Mg Capsule) 200 mg PO BID [facility] Last Admin: 04/03/21 10:11 Dose: 200 mg Documented by: Finasteride (Finasteride 5 Mg Tablet) 5 mg PO DAILY [facility] Last Admin: 04/03/21 10:09 Dose: 5 mg Documented by: Hydroxyzine HCl (Hydroxyzine Hcl 25 Mg Tablet) 25 mg PO Q6H PRN PRN Reason: Anxiety Isosorbide Mononitrate (Isosorbide Mononitrate 60 Mg Tab.Er.24h) 60 mg PO DAILY [facility]; Protocol Last Admin: 04/03/21 10:17 Dose: 60 mg Documented by: Lamotrigine (Lamotrigine 25 Mg Tablet) 25 mg PO BID [facility] Last Admin: 04/03/21 10:10 Dose: 25 mg Documented by: Magnesium Hydroxide (Milk Of Magnesia 30 Ml Oral.Susp) 30 ml PO DAILY PRN PRN Reason: Constipation Magnesium Hydroxide (Milk Of Magnesia 30 Ml Oral.Susp) 30 ml PO DAILY PRN PRN Reason: Constipation Melatonin (Melatonin 3 Mg Tablet) 3 mg PO BEDTIME PRN PRN Reason: insomnia Metformin HCl (Metformin Hcl Er 500 Mg Tab.Er.24h) 500 mg PO DAILY [facility] Last Admin: 04/03/21 10:11 Dose: 500 mg Documented by: Metoprolol Tartrate (Metoprolol Tartrate 12.5 Mg Halftab) 12.5 mg PO BID [facility]; Protocol Last Admin: 04/03/21 10:16 Dose: 12.5 mg Documented by: Patient Own Med ( Alfuzosin Hcl Er 10mg) 1 each PO BEDTIME [facility] Last Admin: 04/02/21 20:17 Dose: 1 each Documented by: Patient Own Med ( (Lumigan 0.01% Soln)) 1 each EYE-BOTH BEDTIME [facility] Last Admin: 04/02/21 20:17 Dose: 1 each Documented by: Olanzapine (Olanzapine 10 Mg Tablet) 10 mg PO BEDTIME [facility] Last Admin: 04/02/21 20:16 Dose: 10 mg Documented by: Omeprazole (Omeprazole 20 Mg Capsule.Dr) 20 mg PO DAILY@0630 [facility] Last Admin: 04/03/21 06:22 Dose: 20 mg Documented by: Pharmacy Consult (Consult Rx Perform Med Rec) 1 each MISCELLANE ONCE PRN PRN Reason: Consult order Pharmacy Consult (Consult Rx Perform Med Rec) 1 each MISCELLANE ONCE PRN PRN Reason: Consult order Trazodone HCl (Trazodone Hcl 50 Mg Tablet) 50 mg PO BEDTIME PRN PRN Reason: Insomnia Last Admin: 03/20/21 01:20 Dose: 50 mg Documented by: Allergies Allergies Allergy/AdvReac Type Severity Reaction Status Date / Time metoprolol AdvReac Unknown bradycardia Verified 03/16/21 14:28 timolol AdvReac Unknown low bp Verified 03/16/21 14:28 tamsulosin [From Flomax] AdvReac Diarrhea Verified 03/22/21 13:42 beta blockers AdvReac Hypotension Uncoded 03/22/21 13:46 Assessment & Plan Assessment & Plan (1) Bipolar disorder: Status: Acute Code(s): F31.9 - Bipolar disorder, unspecified (2) Elbow fracture, right: Qualifiers: Encounter type: initial encounter Fracture type: closed Qualified Code(s): S42.401A - Unspecified fracture of lower end of right humerus, initial encounter for closed fracture Status: Acute Code(s): S42.401A - Unspecified fracture of lower end of right humerus, initial encounter for closed fracture Assessment and Plan: The patient is an elderly male with a history of bipolar disorder with good social support referred to the facility for exacerbation of mood symptoms in the context of poor compliance. Plan 1. Keep same treatment, increase Zyprexa up to 10 mgif he is over-sedated in the morning.? We will continue with Wellbutrin XL. Patient does have a history of response to ECT but at this moment it seems that he is responding to medication management. 2. We had a family meeting last and they agreed on the plan. We will observe his behavior or to see if he has flight of ideas improve with Zyprexa 10 mg and consider next week the possibility of ECT if his depression is worse. Weekend coverage: Pt presents with sx of depression but he is safe and redirectable in behavior, continues to meet with him daily. No changes made to med regimen. Greater than 50% of the session was spent on counseling and/or coordination of care Reason for contiued inpatient stay Substantial Risk for: rapid decompensation and med/psych decompensation
[2021-04-03] MEDS: Melatonin 3 MG TABLET PO (20:14)
[2021-04-03 20:15] VITALS: BP 107/60; PULSE 57
[2021-04-03] MEDS: amLODIPine Besylate 2.5 MG TABLET PO (20:15)
[2021-04-03] MEDS: hydrOXYzine HCL 25 MG TABLET PO (20:15)
[2021-04-03] MEDS: OLANZapine 10 MG TABLET PO (20:15)
[2021-04-03 22:21] LABS: Glucose, Whole Blood 177 mg/dL (60-115)
[2021-04-04 06:00] VITALS: BP 116/66; PULSE 60; RESP 16; TEMP 36.2; O2SAT 95
[2021-04-04] MEDS: Omeprazole 20 MG CAPSULE.DR PO (06:03)
[2021-04-04] MEDS: Finasteride 5 MG TABLET PO (09:35)
[2021-04-04] MEDS: lamoTRIgine 25 MG TABLET PO ×2 (09:35→20:18)
[2021-04-04] MEDS: Isosorbide Mononitrate 60 MG TAB.ER.24H PO (09:36)
[2021-04-04] MEDS: metFORMIN HCl ER 500 MG TAB.ER.24H PO (09:36)
[2021-04-04] MEDS: Metoprolol Tartrate 12.5 MG HALFTAB PO ×2 (09:37→20:16)
[2021-04-04] MEDS: Atorvastatin Calcium 80 MG TABLET PO (09:37)
[2021-04-04] MEDS: Celecoxib 200 MG CAPSULE PO ×2 (09:37→20:16)
[2021-04-04] MEDS: buPROPion HCl XL 150 MG TAB.ER.24H PO (09:38)
[2021-04-04 11:28] LABS: Glucose, Whole Blood 132 mg/dL (60-115)
[2021-04-04 18:00] VITALS: BP 113/70; PULSE 62; RESP 18; TEMP 36.3; O2SAT 95
[2021-04-04 20:16] VITALS: BP 113/70; PULSE 62
[2021-04-04 20:18] VITALS: BP 113/70; PULSE 62
[2021-04-04] MEDS: OLANZapine 10 MG TABLET PO (20:18)
[2021-04-04] MEDS: amLODIPine Besylate 2.5 MG TABLET PO (20:18)
[2021-04-04 21:28] LABS: Glucose, Whole Blood 152 mg/dL (60-115)
[2021-04-05 05:32] LABS: Glucose, Whole Blood 127 mg/dL (60-115)
[2021-04-05 06:00] VITALS: BP 119/67; PULSE 65; RESP 14; TEMP 36.6; O2SAT 96
[2021-04-05] MEDS: Omeprazole 20 MG CAPSULE.DR PO (06:10)
--- NOTE | 2021-04-05 07:44 | HO.PSYCHPN ---
Subjective Subjective Date of Service: 04/04/21 Reason For Visit: Depression ? OD Sub abuse Interim History: Patient seen and discussed with team. Patient evaluated this morning and upon interview he reports his mood is pretty much the same. Medications are okay. Sleep is okay. No questions or concerns. In the milieu, patient is safe but isolating in behavior. Denies SI/SIB/HI upon inquiry. Denies irritability or assaultive ideation. Says he feels safe. Mental Status Exam Mental Status Exam Narrative: Narrative:?Patient Appearance:?Well Grooomed Patient Orientation:?Person Level of Consciousness:?Awake Patient Behavior:?Cooperative Mood Description:?Constricted Affect Description:?Constricted Patient Cognition Impaired:?Yes Ability to Follow Directions:?Good Speech Pattern:?Clear Memory Description:?Intact Hallucinations:?None Delusions:?Not Present Thought Process:?Goal Oriented Thought Content:?positive for Circumstantial Judgement:?Fair Diagnostics Vital Signs (24Hr): Vital Signs - 24 hr 04/04/21 18:00 04/04/21 20:16 04/04/21 20:18 Temperature 97.3 F Pulse Rate 62 62 62 Respiratory Rate 18 Blood Pressure 113/70 113/70 113/70 Pulse Oximetry 95 Body Mass Index 24.9 Labs Results: 03/16/21 19:42 04/01/21 09:41 Labs: Laboratory Results - last 48 hr 04/03/21 04/03/21 04/04/21 14:05 22:18 11:08 POC Glucose 136 H 177 H 132 H 04/04/21 04/05/21 20:14 05:23 POC Glucose 152 H 127 H Imaging Radiology Impressions: ITS Impressions Cervical Spine CT 03/16/21 15:12 IMPRESSION: 1. No acute intracranial pathology. 2. No CT evidence of acute cervical spine fracture or traumatic subluxation 3. Irregular 1.5 cm lesion right upper lobe. This is chronic unchanged since CAT scan of December 03, 2019. Elbow X-Ray 03/16/21 15:12 IMPRESSION: Arthritis. No fracture or dislocation seen. EXAMINATION: Right elbow x-ray CLINICAL INFORMATION: Pain post fall COMPARISON: None. TECHNIQUE: 3 views of the right elbow FINDINGS: There is a comminuted displaced fracture of the olecranon. No other fracture is seen. Joint spaces are normal. There is an elbow joint effusion. There is soft tissue swelling over the fracture. IMPRESSION: Comminuted displaced fracture of the olecranon. EXAMINATION: Right shoulder x-ray CLINICAL INFORMATION: Pain post fall COMPARISON: None. TECHNIQUE: 3 views of the right shoulder FINDINGS: Bone alignment is normal. No fracture or dislocation is seen. The glenohumeral joint is normal. There is arthritis at the acromioclavicular joint. Soft tissues are unremarkable. IMPRESSION: Arthritis at the acromioclavicular joint. EXAMINATION: Chest x-ray CLINICAL INFORMATION: Pain post fall COMPARISON: Previous chest x-ray August 2016 TECHNIQUE: One view of the chest FINDINGS: The cardiac silhouette is slightly enlarged. Thoracic aorta is tortuous. The pulmonary tavon appear prominent. There is a new right subclavian dual chamber pacemaker. There is a small dense right upper lobe nodule that appears unchanged. The lungs are otherwise clear. There is no pleural effusion or pneumothorax. There are surgical clips in the left axilla. There are degenerative changes of the spine. IMPRESSION: No evidence for acute disease in the chest. Prominent pulmonary tavon questionable for enlarged pulmonary arteries versus lymphadenopathy. Head CT 03/16/21 15:12 IMPRESSION: 1. No acute intracranial pathology. 2. No CT evidence of acute cervical spine fracture or traumatic subluxation 3. Irregular 1.5 cm lesion right upper lobe. This is chronic unchanged since CAT scan of December 03, 2019. Shoulder X-Ray 03/16/21 15:12 IMPRESSION: Arthritis. No fracture or dislocation seen. EXAMINATION: Right elbow x-ray CLINICAL INFORMATION: Pain post fall COMPARISON: None. TECHNIQUE: 3 views of the right elbow FINDINGS: There is a comminuted displaced fracture of the olecranon. No other fracture is seen. Joint spaces are normal. There is an elbow joint effusion. There is soft tissue swelling over the fracture. IMPRESSION: Comminuted displaced fracture of the olecranon. EXAMINATION: Right shoulder x-ray CLINICAL INFORMATION: Pain post fall COMPARISON: None. TECHNIQUE: 3 views of the right shoulder FINDINGS: Bone alignment is normal. No fracture or dislocation is seen. The glenohumeral joint is normal. There is arthritis at the acromioclavicular joint. Soft tissues are unremarkable. IMPRESSION: Arthritis at the acromioclavicular joint. EXAMINATION: Chest x-ray CLINICAL INFORMATION: Pain post fall COMPARISON: Previous chest x-ray August 2016 TECHNIQUE: One view of the chest FINDINGS: The cardiac silhouette is slightly enlarged. Thoracic aorta is tortuous. The pulmonary tavon appear prominent. There is a new right subclavian dual chamber pacemaker. There is a small dense right upper lobe nodule that appears unchanged. The lungs are otherwise clear. There is no pleural effusion or pneumothorax. There are surgical clips in the left axilla. There are degenerative changes of the spine. IMPRESSION: No evidence for acute disease in the chest. Prominent pulmonary tavon questionable for enlarged pulmonary arteries versus lymphadenopathy. Wrist X-Ray 03/16/21 15:12 IMPRESSION: Arthritis. No fracture or dislocation seen. EXAMINATION: Right elbow x-ray CLINICAL INFORMATION: Pain post fall COMPARISON: None. TECHNIQUE: 3 views of the right elbow FINDINGS: There is a comminuted displaced fracture of the olecranon. No other fracture is seen. Joint spaces are normal. There is an elbow joint effusion. There is soft tissue swelling over the fracture. IMPRESSION: Comminuted displaced fracture of the olecranon. EXAMINATION: Right shoulder x-ray CLINICAL INFORMATION: Pain post fall COMPARISON: None. TECHNIQUE: 3 views of the right shoulder FINDINGS: Bone alignment is normal. No fracture or dislocation is seen. The glenohumeral joint is normal. There is arthritis at the acromioclavicular joint. Soft tissues are unremarkable. IMPRESSION: Arthritis at the acromioclavicular joint. EXAMINATION: Chest x-ray CLINICAL INFORMATION: Pain post fall COMPARISON: Previous chest x-ray August 2016 TECHNIQUE: One view of the chest FINDINGS: The cardiac silhouette is slightly enlarged. Thoracic aorta is tortuous. The pulmonary tavon appear prominent. There is a new right subclavian dual chamber pacemaker. There is a small dense right upper lobe nodule that appears unchanged. The lungs are otherwise clear. There is no pleural effusion or pneumothorax. There are surgical clips in the left axilla. There are degenerative changes of the spine. IMPRESSION: No evidence for acute disease in the chest. Prominent pulmonary tavon questionable for enlarged pulmonary arteries versus lymphadenopathy. Chest X-Ray 03/16/21 15:13 IMPRESSION: Arthritis. No fracture or dislocation seen. EXAMINATION: Right elbow x-ray CLINICAL INFORMATION: Pain post fall COMPARISON: None. TECHNIQUE: 3 views of the right elbow FINDINGS: There is a comminuted displaced fracture of the olecranon. No other fracture is seen. Joint spaces are normal. There is an elbow joint effusion. There is soft tissue swelling over the fracture. IMPRESSION: Comminuted displaced fracture of the olecranon. EXAMINATION: Right shoulder x-ray CLINICAL INFORMATION: Pain post fall COMPARISON: None. TECHNIQUE: 3 views of the right shoulder FINDINGS: Bone alignment is normal. No fracture or dislocation is seen. The glenohumeral joint is normal. There is arthritis at the acromioclavicular joint. Soft tissues are unremarkable. IMPRESSION: Arthritis at the acromioclavicular joint. EXAMINATION: Chest x-ray CLINICAL INFORMATION: Pain post fall COMPARISON: Previous chest x-ray August 2016 TECHNIQUE: One view of the chest FINDINGS: The cardiac silhouette is slightly enlarged. Thoracic aorta is tortuous. The pulmonary tavon appear prominent. There is a new right subclavian dual chamber pacemaker. There is a small dense right upper lobe nodule that appears unchanged. The lungs are otherwise clear. There is no pleural effusion or pneumothorax. There are surgical clips in the left axilla. There are degenerative changes of the spine. IMPRESSION: No evidence for acute disease in the chest. Prominent pulmonary tavon questionable for enlarged pulmonary arteries versus lymphadenopathy. Elbow X-Ray 03/25/21 14:11 IMPRESSION: No change in the comminuted displaced olecranon fracture. Knee X-Ray 04/01/21 11:28 IMPRESSION: Moderate to large joint effusion and degenerative changes. Elbow X-Ray 04/01/21 13:59 IMPRESSION: Comminuted fracture proximal olecranon. Medications Medications Current Medications Acetaminophen (Acetaminophen 325 Mg Tablet) 650 mg PO Q6H PRN PRN Reason: Headache/Pain Mild Scale (1-3) Last Admin: 03/31/21 23:54 Dose: 650 mg Documented by: Acetaminophen (Acetaminophen 325 Mg Tablet) 650 mg PO Q6H PRN PRN Reason: Headache/Pain Mild Scale (1-3) Al Hydroxide/Mg Hydroxide (Magnesium Hydrox/Alum Hydrox 30 Ml Oral.Susp) 30 ml PO Q6H PRN PRN Reason: Heartburn/Nausea Alendronate Sodium (Alendronate Sodium 70 Mg Tablet) 70 mg PO SA [facility] Last Admin: 04/03/21 10:55 Dose: 70 mg Documented by: Amlodipine Besylate (Amlodipine Besylate 2.5 Mg Tablet) 2.5 mg PO BEDTIME [facility]; Protocol Last Admin: 04/04/21 20:18 Dose: 2.5 mg Documented by: Atorvastatin Calcium (Atorvastatin Calcium 80 Mg Tablet) 80 mg PO DAILY [facility] Last Admin: 04/04/21 09:37 Dose: 80 mg Documented by: Bupropion HCl (Bupropion Hcl Xl 150 Mg Tab.Er.24h) 150 mg PO DAILY [facility] Last Admin: 04/04/21 09:38 Dose: 150 mg Documented by: Celecoxib (Celecoxib 200 Mg Capsule) 200 mg PO BID [facility] Last Admin: 04/04/21 20:16 Dose: 200 mg Documented by: Finasteride (Finasteride 5 Mg Tablet) 5 mg PO DAILY [facility] Last Admin: 04/04/21 09:35 Dose: 5 mg Documented by: Hydroxyzine HCl (Hydroxyzine Hcl 25 Mg Tablet) 25 mg PO Q6H PRN PRN Reason: Anxiety Last Admin: 04/03/21 20:15 Dose: 25 mg Documented by: Isosorbide Mononitrate (Isosorbide Mononitrate 60 Mg Tab.Er.24h) 60 mg PO DAILY [facility]; Protocol Last Admin: 04/04/21 09:36 Dose: 60 mg Documented by: Lamotrigine (Lamotrigine 25 Mg Tablet) 25 mg PO BID [facility] Last Admin: 04/04/21 20:18 Dose: 25 mg Documented by: Magnesium Hydroxide (Milk Of Magnesia 30 Ml Oral.Susp) 30 ml PO DAILY PRN PRN Reason: Constipation Magnesium Hydroxide (Milk Of Magnesia 30 Ml Oral.Susp) 30 ml PO DAILY PRN PRN Reason: Constipation Melatonin (Melatonin 3 Mg Tablet) 3 mg PO BEDTIME PRN PRN Reason: insomnia Last Admin: 04/03/21 20:14 Dose: 3 mg Documented by: Metformin HCl (Metformin Hcl Er 500 Mg Tab.Er.24h) 500 mg PO DAILY [facility] Last Admin: 04/04/21 09:36 Dose: 500 mg Documented by: Metoprolol Tartrate (Metoprolol Tartrate 12.5 Mg Halftab) 12.5 mg PO BID [facility]; Protocol Last Admin: 04/04/21 20:16 Dose: 12.5 mg Documented by: Patient Own Med ( Alfuzosin Hcl Er 10mg) 1 each PO BEDTIME [facility] Last Admin: 04/04/21 20:19 Dose: 1 each Documented by: Patient Own Med ( (Lumigan 0.01% Soln)) 1 each EYE-BOTH BEDTIME [facility] Last Admin: 04/04/21 20:19 Dose: 1 each Documented by: Olanzapine (Olanzapine 10 Mg Tablet) 10 mg PO BEDTIME [facility] Last Admin: 04/04/21 20:18 Dose: 10 mg Documented by: Omeprazole (Omeprazole 20 Mg Capsule.Dr) 20 mg PO DAILY@0630 [facility] Last Admin: 04/05/21 06:10 Dose: 20 mg Documented by: Pharmacy Consult (Consult Rx Perform Med Rec) 1 each MISCELLANE ONCE PRN PRN Reason: Consult order Pharmacy Consult (Consult Rx Perform Med Rec) 1 each MISCELLANE ONCE PRN PRN Reason: Consult order Trazodone HCl (Trazodone Hcl 50 Mg Tablet) 50 mg PO BEDTIME PRN PRN Reason: Insomnia Last Admin: 03/20/21 01:20 Dose: 50 mg Documented by: Allergies Allergies Allergy/AdvReac Type Severity Reaction Status Date / Time metoprolol AdvReac Unknown bradycardia Verified 03/16/21 14:28 timolol AdvReac Unknown low bp Verified 03/16/21 14:28 tamsulosin [From Flomax] AdvReac Diarrhea Verified 03/22/21 13:42 beta blockers AdvReac Hypotension Uncoded 03/22/21 13:46 Assessment & Plan Assessment & Plan (1) Bipolar disorder: Status: Acute Code(s): F31.9 - Bipolar disorder, unspecified (2) Elbow fracture, right: Qualifiers: Encounter type: initial encounter Fracture type: closed Qualified Code(s): S42.401A - Unspecified fracture of lower end of right humerus, initial encounter for closed fracture Status: Acute Code(s): S42.401A - Unspecified fracture of lower end of right humerus, initial encounter for closed fracture Assessment and Plan: The patient is an elderly male with a history of bipolar disorder with good social support referred to the facility for exacerbation of mood symptoms in the context of poor compliance. Plan 1. Keep same treatment, increase Zyprexa up to 10 mgif he is over-sedated in the morning.? We will continue with Wellbutrin XL. Patient does have a history of response to ECT but at this moment it seems that he is responding to medication management. 2. We had a family meeting last and they agreed on the plan. We will observe his behavior or to see if he has flight of ideas improve with Zyprexa 10 mg and consider next week the possibility of ECT if his depression is worse. Weekend coverage: No changes made to primary med plan today. Per staff, he is somewhat more visible in the milieu today. Greater than 50% of the session was spent on counseling and/or coordination of care Reason for contiued inpatient stay Substantial Risk for: inability to function and med/psych decompensation
[2021-04-05] MEDS: Finasteride 5 MG TABLET PO (09:09)
[2021-04-05 09:10] VITALS: BP 119/67; PULSE 65
[2021-04-05] MEDS: Metoprolol Tartrate 12.5 MG HALFTAB PO ×2 (09:10→20:56)
[2021-04-05] MEDS: Celecoxib 200 MG CAPSULE PO ×2 (09:10→20:56)
[2021-04-05 09:11] VITALS: BP 119/67; PULSE 65
[2021-04-05] MEDS: metFORMIN HCl ER 500 MG TAB.ER.24H PO (09:11)
[2021-04-05] MEDS: Isosorbide Mononitrate 60 MG TAB.ER.24H PO (09:11)
[2021-04-05] MEDS: lamoTRIgine 25 MG TABLET PO (09:11)
[2021-04-05] MEDS: buPROPion HCl XL 150 MG TAB.ER.24H PO (09:12)
[2021-04-05] MEDS: Atorvastatin Calcium 80 MG TABLET PO (09:12)
--- NOTE | 2021-04-05 13:46 | HO.PSYCHPN ---
Subjective Subjective Date of Service: 04/05/21 Reason For Visit: Depression ? OD Sub abuse Subjective Notes: Conditional Voluntary Interim History: The nursing staff reported the patient is alert and oriented but he goes out only for meals. The occupational therapist has reported that he looks a little more animated and appropriate in groups but he needs help to be fully functional. We talk with her daughter today with the social insurance administrator and explained that he has improved but he remains mildly dysphoric. We discussed risk and benefits and he agreed to increase Lamictal. On interview, the patient reports feeling okay and his affect is a little brighter but he is not at his baseline. Medication Compliance: Yes Side effects from medications: No Attending Groups: Intermittent Review of Systems Acute medical concerns: No Mental Status Exam Mental Status Exam Patient Appearance: Well Grooomed Patient Orientation: Person and Situation Level of Consciousness: Awake and Appropriate Patient Behavior: Cooperative Mood Description: Calm Affect Description: Constricted Patient Cognition Impaired: Yes Ability to Follow Directions: Good Speech Pattern: Clear Hallucinations: None Delusions: Not Present Thought Process: Distracted and Slowed Thinking Thought Content: positive for Circumstantial Judgement: Fair Diagnostics Vital Signs (24Hr): Vital Signs - 24 hr 04/04/21 18:00 04/04/21 20:16 04/04/21 20:18 Temperature 97.3 F Pulse Rate 62 62 62 Respiratory Rate 18 Blood Pressure 113/70 113/70 113/70 Pulse Oximetry 95 04/05/21 06:00 04/05/21 09:10 04/05/21 09:11 Temperature 97.8 F Pulse Rate 65 65 65 Respiratory Rate 14 Blood Pressure 119/67 119/67 119/67 Pulse Oximetry 96 Body Mass Index 24.9 Labs Results: 03/16/21 19:42 04/01/21 09:41 Labs: Laboratory Results - last 48 hr 04/03/21 04/03/21 04/04/21 14:05 22:18 11:08 POC Glucose 136 H 177 H 132 H 04/04/21 04/05/21 20:14 05:23 POC Glucose 152 H 127 H Imaging Radiology Impressions: ITS Impressions Cervical Spine CT 03/16/21 15:12 IMPRESSION: 1. No acute intracranial pathology. 2. No CT evidence of acute cervical spine fracture or traumatic subluxation 3. Irregular 1.5 cm lesion right upper lobe. This is chronic unchanged since CAT scan of December 03, 2019. Elbow X-Ray 03/16/21 15:12 IMPRESSION: Arthritis. No fracture or dislocation seen. EXAMINATION: Right elbow x-ray CLINICAL INFORMATION: Pain post fall COMPARISON: None. TECHNIQUE: 3 views of the right elbow FINDINGS: There is a comminuted displaced fracture of the olecranon. No other fracture is seen. Joint spaces are normal. There is an elbow joint effusion. There is soft tissue swelling over the fracture. IMPRESSION: Comminuted displaced fracture of the olecranon. EXAMINATION: Right shoulder x-ray CLINICAL INFORMATION: Pain post fall COMPARISON: None. TECHNIQUE: 3 views of the right shoulder FINDINGS: Bone alignment is normal. No fracture or dislocation is seen. The glenohumeral joint is normal. There is arthritis at the acromioclavicular joint. Soft tissues are unremarkable. IMPRESSION: Arthritis at the acromioclavicular joint. EXAMINATION: Chest x-ray CLINICAL INFORMATION: Pain post fall COMPARISON: Previous chest x-ray August 2016 TECHNIQUE: One view of the chest FINDINGS: The cardiac silhouette is slightly enlarged. Thoracic aorta is tortuous. The pulmonary tavon appear prominent. There is a new right subclavian dual chamber pacemaker. There is a small dense right upper lobe nodule that appears unchanged. The lungs are otherwise clear. There is no pleural effusion or pneumothorax. There are surgical clips in the left axilla. There are degenerative changes of the spine. IMPRESSION: No evidence for acute disease in the chest. Prominent pulmonary tavon questionable for enlarged pulmonary arteries versus lymphadenopathy. Head CT 03/16/21 15:12 IMPRESSION: 1. No acute intracranial pathology. 2. No CT evidence of acute cervical spine fracture or traumatic subluxation 3. Irregular 1.5 cm lesion right upper lobe. This is chronic unchanged since CAT scan of December 03, 2019. Shoulder X-Ray 03/16/21 15:12 IMPRESSION: Arthritis. No fracture or dislocation seen. EXAMINATION: Right elbow x-ray CLINICAL INFORMATION: Pain post fall COMPARISON: None. TECHNIQUE: 3 views of the right elbow FINDINGS: There is a comminuted displaced fracture of the olecranon. No other fracture is seen. Joint spaces are normal. There is an elbow joint effusion. There is soft tissue swelling over the fracture. IMPRESSION: Comminuted displaced fracture of the olecranon. EXAMINATION: Right shoulder x-ray CLINICAL INFORMATION: Pain post fall COMPARISON: None. TECHNIQUE: 3 views of the right shoulder FINDINGS: Bone alignment is normal. No fracture or dislocation is seen. The glenohumeral joint is normal. There is arthritis at the acromioclavicular joint. Soft tissues are unremarkable. IMPRESSION: Arthritis at the acromioclavicular joint. EXAMINATION: Chest x-ray CLINICAL INFORMATION: Pain post fall COMPARISON: Previous chest x-ray August 2016 TECHNIQUE: One view of the chest FINDINGS: The cardiac silhouette is slightly enlarged. Thoracic aorta is tortuous. The pulmonary tavon appear prominent. There is a new right subclavian dual chamber pacemaker. There is a small dense right upper lobe nodule that appears unchanged. The lungs are otherwise clear. There is no pleural effusion or pneumothorax. There are surgical clips in the left axilla. There are degenerative changes of the spine. IMPRESSION: No evidence for acute disease in the chest. Prominent pulmonary tavon questionable for enlarged pulmonary arteries versus lymphadenopathy. Wrist X-Ray 03/16/21 15:12 IMPRESSION: Arthritis. No fracture or dislocation seen. EXAMINATION: Right elbow x-ray CLINICAL INFORMATION: Pain post fall COMPARISON: None. TECHNIQUE: 3 views of the right elbow FINDINGS: There is a comminuted displaced fracture of the olecranon. No other fracture is seen. Joint spaces are normal. There is an elbow joint effusion. There is soft tissue swelling over the fracture. IMPRESSION: Comminuted displaced fracture of the olecranon. EXAMINATION: Right shoulder x-ray CLINICAL INFORMATION: Pain post fall COMPARISON: None. TECHNIQUE: 3 views of the right shoulder FINDINGS: Bone alignment is normal. No fracture or dislocation is seen. The glenohumeral joint is normal. There is arthritis at the acromioclavicular joint. Soft tissues are unremarkable. IMPRESSION: Arthritis at the acromioclavicular joint. EXAMINATION: Chest x-ray CLINICAL INFORMATION: Pain post fall COMPARISON: Previous chest x-ray August 2016 TECHNIQUE: One view of the chest FINDINGS: The cardiac silhouette is slightly enlarged. Thoracic aorta is tortuous. The pulmonary tavon appear prominent. There is a new right subclavian dual chamber pacemaker. There is a small dense right upper lobe nodule that appears unchanged. The lungs are otherwise clear. There is no pleural effusion or pneumothorax. There are surgical clips in the left axilla. There are degenerative changes of the spine. IMPRESSION: No evidence for acute disease in the chest. Prominent pulmonary tavon questionable for enlarged pulmonary arteries versus lymphadenopathy. Chest X-Ray 03/16/21 15:13 IMPRESSION: Arthritis. No fracture or dislocation seen. EXAMINATION: Right elbow x-ray CLINICAL INFORMATION: Pain post fall COMPARISON: None. TECHNIQUE: 3 views of the right elbow FINDINGS: There is a comminuted displaced fracture of the olecranon. No other fracture is seen. Joint spaces are normal. There is an elbow joint effusion. There is soft tissue swelling over the fracture. IMPRESSION: Comminuted displaced fracture of the olecranon. EXAMINATION: Right shoulder x-ray CLINICAL INFORMATION: Pain post fall COMPARISON: None. TECHNIQUE: 3 views of the right shoulder FINDINGS: Bone alignment is normal. No fracture or dislocation is seen. The glenohumeral joint is normal. There is arthritis at the acromioclavicular joint. Soft tissues are unremarkable. IMPRESSION: Arthritis at the acromioclavicular joint. EXAMINATION: Chest x-ray CLINICAL INFORMATION: Pain post fall COMPARISON: Previous chest x-ray August 2016 TECHNIQUE: One view of the chest FINDINGS: The cardiac silhouette is slightly enlarged. Thoracic aorta is tortuous. The pulmonary tavon appear prominent. There is a new right subclavian dual chamber pacemaker. There is a small dense right upper lobe nodule that appears unchanged. The lungs are otherwise clear. There is no pleural effusion or pneumothorax. There are surgical clips in the left axilla. There are degenerative changes of the spine. IMPRESSION: No evidence for acute disease in the chest. Prominent pulmonary tavon questionable for enlarged pulmonary arteries versus lymphadenopathy. Elbow X-Ray 03/25/21 14:11 IMPRESSION: No change in the comminuted displaced olecranon fracture. Knee X-Ray 04/01/21 11:28 IMPRESSION: Moderate to large joint effusion and degenerative changes. Elbow X-Ray 04/01/21 13:59 IMPRESSION: Comminuted fracture proximal olecranon. Medications Medications Current Medications Acetaminophen (Acetaminophen 325 Mg Tablet) 650 mg PO Q6H PRN PRN Reason: Headache/Pain Mild Scale (1-3) Last Admin: 03/31/21 23:54 Dose: 650 mg Documented by: Acetaminophen (Acetaminophen 325 Mg Tablet) 650 mg PO Q6H PRN PRN Reason: Headache/Pain Mild Scale (1-3) Al Hydroxide/Mg Hydroxide (Magnesium Hydrox/Alum Hydrox 30 Ml Oral.Susp) 30 ml PO Q6H PRN PRN Reason: Heartburn/Nausea Alendronate Sodium (Alendronate Sodium 70 Mg Tablet) 70 mg PO SA [facility] Last Admin: 04/03/21 10:55 Dose: 70 mg Documented by: Amlodipine Besylate (Amlodipine Besylate 2.5 Mg Tablet) 2.5 mg PO BEDTIME [facility]; Protocol Last Admin: 04/04/21 20:18 Dose: 2.5 mg Documented by: Atorvastatin Calcium (Atorvastatin Calcium 80 Mg Tablet) 80 mg PO DAILY [facility] Last Admin: 04/05/21 09:12 Dose: 80 mg Documented by: Bupropion HCl (Bupropion Hcl Xl 150 Mg Tab.Er.24h) 150 mg PO DAILY [facility] Last Admin: 04/05/21 09:12 Dose: 150 mg Documented by: Celecoxib (Celecoxib 200 Mg Capsule) 200 mg PO BID [facility] Last Admin: 04/05/21 09:10 Dose: 200 mg Documented by: Finasteride (Finasteride 5 Mg Tablet) 5 mg PO DAILY [facility] Last Admin: 04/05/21 09:09 Dose: 5 mg Documented by: Hydroxyzine HCl (Hydroxyzine Hcl 25 Mg Tablet) 25 mg PO Q6H PRN PRN Reason: Anxiety Last Admin: 04/03/21 20:15 Dose: 25 mg Documented by: Isosorbide Mononitrate (Isosorbide Mononitrate 60 Mg Tab.Er.24h) 60 mg PO DAILY [facility]; Protocol Last Admin: 04/05/21 09:11 Dose: 60 mg Documented by: Lamotrigine (Lamotrigine 25 Mg Tablet) 50 mg PO BID [facility] Magnesium Hydroxide (Milk Of Magnesia 30 Ml Oral.Susp) 30 ml PO DAILY PRN PRN Reason: Constipation Magnesium Hydroxide (Milk Of Magnesia 30 Ml Oral.Susp) 30 ml PO DAILY PRN PRN Reason: Constipation Melatonin (Melatonin 3 Mg Tablet) 3 mg PO BEDTIME PRN PRN Reason: insomnia Last Admin: 04/03/21 20:14 Dose: 3 mg Documented by: Metformin HCl (Metformin Hcl Er 500 Mg Tab.Er.24h) 500 mg PO DAILY [facility] Last Admin: 04/05/21 09:11 Dose: 500 mg Documented by: Metoprolol Tartrate (Metoprolol Tartrate 12.5 Mg Halftab) 12.5 mg PO BID [facility]; Protocol Last Admin: 04/05/21 09:10 Dose: 12.5 mg Documented by: Patient Own Med ( Alfuzosin Hcl Er 10mg) 1 each PO BEDTIME [facility] Last Admin: 04/04/21 20:19 Dose: 1 each Documented by: Patient Own Med ( (Lumigan 0.01% Soln)) 1 each EYE-BOTH BEDTIME [facility] Last Admin: 04/04/21 20:19 Dose: 1 each Documented by: Olanzapine (Olanzapine 10 Mg Tablet) 10 mg PO BEDTIME [facility] Last Admin: 04/04/21 20:18 Dose: 10 mg Documented by: Omeprazole (Omeprazole 20 Mg Capsule.Dr) 20 mg PO DAILY@0630 [facility] Last Admin: 04/05/21 06:10 Dose: 20 mg Documented by: Pharmacy Consult (Consult Rx Perform Med Rec) 1 each MISCELLANE ONCE PRN PRN Reason: Consult order Pharmacy Consult (Consult Rx Perform Med Rec) 1 each MISCELLANE ONCE PRN PRN Reason: Consult order Trazodone HCl (Trazodone Hcl 50 Mg Tablet) 50 mg PO BEDTIME PRN PRN Reason: Insomnia Last Admin: 03/20/21 01:20 Dose: 50 mg Documented by: Allergies Allergies Allergy/AdvReac Type Severity Reaction Status Date / Time metoprolol AdvReac Unknown bradycardia Verified 03/16/21 14:28 timolol AdvReac Unknown low bp Verified 03/16/21 14:28 tamsulosin [From Flomax] AdvReac Diarrhea Verified 03/22/21 13:42 beta blockers AdvReac Hypotension Uncoded 03/22/21 13:46 Assessment & Plan Assessment & Plan (1) Bipolar disorder: Status: Acute Code(s): F31.9 - Bipolar disorder, unspecified (2) Elbow fracture, right: Qualifiers: Encounter type: initial encounter Fracture type: closed Qualified Code(s): S42.401A - Unspecified fracture of lower end of right humerus, initial encounter for closed fracture Status: Acute Code(s): S42.401A - Unspecified fracture of lower end of right humerus, initial encounter for closed fracture Assessment and Plan: The patient is an elderly male with a history of bipolar disorder with good social support referred to the facility for exacerbation of mood symptoms in the context of poor compliance. Plan 1. Keep same treatment, increase Zyprexa up to 10 mgif he is over-sedated in the morning.? We will continue with Wellbutrin XL. Patient does have a history of response to ECT but at this moment it seems that he is responding to medication management. 2. In general, we have seen an improvement of his mood but he still mildly dysphoric. We discussed risks benefits, and side effects and he agreed to increase Lamictal up to 50 mg p.o. b.i.d. to target depression and mood lability. Greater than 50% of the session was spent on counseling and/or coordination of care Reason for contiued inpatient stay Substantial Risk for: inability to function, rapid decompensation and med/psych decompensation
[2021-04-05 17:29] LABS: Glucose, Whole Blood 159 mg/dL (60-115)
[2021-04-05 20:38] VITALS: BP 107/58; PULSE 60; RESP 16; TEMP 36.9; O2SAT 95
[2021-04-05 20:44] LABS: Glucose, Whole Blood 157 mg/dL (60-115)
[2021-04-05 20:56] VITALS: BP 107/58; PULSE 60
[2021-04-05] MEDS: OLANZapine 10 MG TABLET PO (20:56)
[2021-04-05] MEDS: lamoTRIgine 25 MG TABLET 50 MG PO (20:56)
[2021-04-05] MEDS: amLODIPine Besylate 2.5 MG TABLET PO (20:57)
[2021-04-06] MEDS: Omeprazole 20 MG CAPSULE.DR PO (06:56)
[2021-04-06 08:45] VITALS: BP 111/62; PULSE 56
[2021-04-06] MEDS: Celecoxib 200 MG CAPSULE PO ×2 (08:45→20:20)
[2021-04-06] MEDS: Metoprolol Tartrate 12.5 MG HALFTAB PO (08:45)
[2021-04-06] MEDS: lamoTRIgine 25 MG TABLET 50 MG PO ×2 (08:45→20:20)
[2021-04-06 08:46] VITALS: BP 111/62; PULSE 56
[2021-04-06] MEDS: Atorvastatin Calcium 80 MG TABLET PO (08:46)
[2021-04-06] MEDS: Isosorbide Mononitrate 60 MG TAB.ER.24H PO (08:46)
[2021-04-06] MEDS: buPROPion HCl XL 150 MG TAB.ER.24H PO (08:47)
[2021-04-06] MEDS: metFORMIN HCl ER 500 MG TAB.ER.24H PO (08:47)
[2021-04-06] MEDS: Finasteride 5 MG TABLET PO (08:50)
[2021-04-06 09:00] VITALS: BP 111/62; PULSE 56; TEMP 35.8; O2SAT 99
--- NOTE | 2021-04-06 15:06 | P.PNPSI_ITS ---
Subjective Subjective Date of Service: 04/06/21 Reason For Visit: Depression ? OD Sub abuse Subjective Notes: Conditional Voluntary Interim History: The nursing staff reported that the patient has been isolative. Occupational therapist reports that the patient goes to groups only with encouragement. On interview, the patient denies new symptoms, he states that he feels the same even though that he has racing thoughts are much better. Medication Compliance: Yes Side effects from medications: No Attending Groups: Intermittent Review of Systems Acute medical concerns: No Medical Review of Systems: unchanged Mental Status Exam Mental Status Exam Patient Appearance: Well Grooomed Patient Orientation: Person Level of Consciousness: Awake and Appropriate Patient Behavior: Cooperative Mood Description: Constricted Affect Description: Constricted and Depressed Patient Cognition Impaired: Yes Ability to Follow Directions: Good Speech Pattern: Clear Hallucinations: None Delusions: Not Present Thought Process: Evasive Thought Content: positive for Circumstantial Judgement: Fair Diagnostics Vital Signs (24Hr): Vital Signs - 24 hr 04/05/21 20:38 04/05/21 20:56 04/06/21 08:45 Temperature 98.4 F Pulse Rate 60 60 56 Respiratory Rate 16 Blood Pressure 107/58 L 107/58 L 111/62 Pulse Oximetry 95 04/06/21 08:46 04/06/21 09:00 Temperature 96.5 F L Pulse Rate 56 56 Respiratory Rate Blood Pressure 111/62 111/62 Pulse Oximetry 99 Body Mass Index 24.9 Labs Results: 03/16/21 19:42 04/01/21 09:41 Labs: Laboratory Results - last 48 hr 04/04/21 04/05/21 04/05/21 20:14 05:23 17:24 POC Glucose 152 H 127 H 159 H 04/05/21 20:39 POC Glucose 157 H Imaging Radiology Impressions: ITS Impressions Cervical Spine CT 03/16/21 15:12 IMPRESSION: 1. No acute intracranial pathology. 2. No CT evidence of acute cervical spine fracture or traumatic subluxation 3. Irregular 1.5 cm lesion right upper lobe. This is chronic unchanged since CAT scan of December 03, 2019. Elbow X-Ray 03/16/21 15:12 IMPRESSION: Arthritis. No fracture or dislocation seen. EXAMINATION: Right elbow x-ray CLINICAL INFORMATION: Pain post fall COMPARISON: None. TECHNIQUE: 3 views of the right elbow FINDINGS: There is a comminuted displaced fracture of the olecranon. No other fracture is seen. Joint spaces are normal. There is an elbow joint effusion. There is soft tissue swelling over the fracture. IMPRESSION: Comminuted displaced fracture of the olecranon. EXAMINATION: Right shoulder x-ray CLINICAL INFORMATION: Pain post fall COMPARISON: None. TECHNIQUE: 3 views of the right shoulder FINDINGS: Bone alignment is normal. No fracture or dislocation is seen. The glenohumeral joint is normal. There is arthritis at the acromioclavicular joint. Soft tissues are unremarkable. IMPRESSION: Arthritis at the acromioclavicular joint. EXAMINATION: Chest x-ray CLINICAL INFORMATION: Pain post fall COMPARISON: Previous chest x-ray August 2016 TECHNIQUE: One view of the chest FINDINGS: The cardiac silhouette is slightly enlarged. Thoracic aorta is tortuous. The pulmonary tavon appear prominent. There is a new right subclavian dual chamber pacemaker. There is a small dense right upper lobe nodule that appears unchanged. The lungs are otherwise clear. There is no pleural effusion or pneumothorax. There are surgical clips in the left axilla. There are degenerative changes of the spine. IMPRESSION: No evidence for acute disease in the chest. Prominent pulmonary tavon questionable for enlarged pulmonary arteries versus lymphadenopathy. Head CT 03/16/21 15:12 IMPRESSION: 1. No acute intracranial pathology. 2. No CT evidence of acute cervical spine fracture or traumatic subluxation 3. Irregular 1.5 cm lesion right upper lobe. This is chronic unchanged since CAT scan of December 03, 2019. Shoulder X-Ray 03/16/21 15:12 IMPRESSION: Arthritis. No fracture or dislocation seen. EXAMINATION: Right elbow x-ray CLINICAL INFORMATION: Pain post fall COMPARISON: None. TECHNIQUE: 3 views of the right elbow FINDINGS: There is a comminuted displaced fracture of the olecranon. No other fracture is seen. Joint spaces are normal. There is an elbow joint effusion. There is soft tissue swelling over the fracture. IMPRESSION: Comminuted displaced fracture of the olecranon. EXAMINATION: Right shoulder x-ray CLINICAL INFORMATION: Pain post fall COMPARISON: None. TECHNIQUE: 3 views of the right shoulder FINDINGS: Bone alignment is normal. No fracture or dislocation is seen. The glenohumeral joint is normal. There is arthritis at the acromioclavicular joint. Soft tissues are unremarkable. IMPRESSION: Arthritis at the acromioclavicular joint. EXAMINATION: Chest x-ray CLINICAL INFORMATION: Pain post fall COMPARISON: Previous chest x-ray August 2016 TECHNIQUE: One view of the chest FINDINGS: The cardiac silhouette is slightly enlarged. Thoracic aorta is tortuous. The pulmonary tavon appear prominent. There is a new right subclavian dual chamber pacemaker. There is a small dense right upper lobe nodule that appears unchanged. The lungs are otherwise clear. There is no pleural effusion or pneumothorax. There are surgical clips in the left axilla. There are degenerative changes of the spine. IMPRESSION: No evidence for acute disease in the chest. Prominent pulmonary tavon questionable for enlarged pulmonary arteries versus lymphadenopathy. Wrist X-Ray 03/16/21 15:12 IMPRESSION: Arthritis. No fracture or dislocation seen. EXAMINATION: Right elbow x-ray CLINICAL INFORMATION: Pain post fall COMPARISON: None. TECHNIQUE: 3 views of the right elbow FINDINGS: There is a comminuted displaced fracture of the olecranon. No other fracture is seen. Joint spaces are normal. There is an elbow joint effusion. There is soft tissue swelling over the fracture. IMPRESSION: Comminuted displaced fracture of the olecranon. EXAMINATION: Right shoulder x-ray CLINICAL INFORMATION: Pain post fall COMPARISON: None. TECHNIQUE: 3 views of the right shoulder FINDINGS: Bone alignment is normal. No fracture or dislocation is seen. The glenohumeral joint is normal. There is arthritis at the acromioclavicular joint. Soft tissues are unremarkable. IMPRESSION: Arthritis at the acromioclavicular joint. EXAMINATION: Chest x-ray CLINICAL INFORMATION: Pain post fall COMPARISON: Previous chest x-ray August 2016 TECHNIQUE: One view of the chest FINDINGS: The cardiac silhouette is slightly enlarged. Thoracic aorta is tortuous. The pulmonary tavon appear prominent. There is a new right subclavian dual chamber pacemaker. There is a small dense right upper lobe nodule that appears unchanged. The lungs are otherwise clear. There is no pleural effusion or pneumothorax. There are surgical clips in the left axilla. There are degenerative changes of the spine. IMPRESSION: No evidence for acute disease in the chest. Prominent pulmonary tavon questionable for enlarged pulmonary arteries versus lymphadenopathy. Chest X-Ray 03/16/21 15:13 IMPRESSION: Arthritis. No fracture or dislocation seen. EXAMINATION: Right elbow x-ray CLINICAL INFORMATION: Pain post fall COMPARISON: None. TECHNIQUE: 3 views of the right elbow FINDINGS: There is a comminuted displaced fracture of the olecranon. No other fracture is seen. Joint spaces are normal. There is an elbow joint effusion. There is soft tissue swelling over the fracture. IMPRESSION: Comminuted displaced fracture of the olecranon. EXAMINATION: Right shoulder x-ray CLINICAL INFORMATION: Pain post fall COMPARISON: None. TECHNIQUE: 3 views of the right shoulder FINDINGS: Bone alignment is normal. No fracture or dislocation is seen. The glenohumeral joint is normal. There is arthritis at the acromioclavicular joint. Soft tissues are unremarkable. IMPRESSION: Arthritis at the acromioclavicular joint. EXAMINATION: Chest x-ray CLINICAL INFORMATION: Pain post fall COMPARISON: Previous chest x-ray August 2016 TECHNIQUE: One view of the chest FINDINGS: The cardiac silhouette is slightly enlarged. Thoracic aorta is tortuous. The pulmonary tavon appear prominent. There is a new right subclavian dual chamber pacemaker. There is a small dense right upper lobe nodule that appears unchanged. The lungs are otherwise clear. There is no pleural effusion or pneumothorax. There are surgical clips in the left axilla. There are degenerative changes of the spine. IMPRESSION: No evidence for acute disease in the chest. Prominent pulmonary tavon questionable for enlarged pulmonary arteries versus lymphadenopathy. Elbow X-Ray 03/25/21 14:11 IMPRESSION: No change in the comminuted displaced olecranon fracture. Knee X-Ray 04/01/21 11:28 IMPRESSION: Moderate to large joint effusion and degenerative changes. Elbow X-Ray 04/01/21 13:59 IMPRESSION: Comminuted fracture proximal olecranon. Medications Medications Current Medications Acetaminophen (Acetaminophen 325 Mg Tablet) 650 mg PO Q6H PRN PRN Reason: Headache/Pain Mild Scale (1-3) Last Admin: 03/31/21 23:54 Dose: 650 mg Documented by: Acetaminophen (Acetaminophen 325 Mg Tablet) 650 mg PO Q6H PRN PRN Reason: Headache/Pain Mild Scale (1-3) Al Hydroxide/Mg Hydroxide (Magnesium Hydrox/Alum Hydrox 30 Ml Oral.Susp) 30 ml PO Q6H PRN PRN Reason: Heartburn/Nausea Alendronate Sodium (Alendronate Sodium 70 Mg Tablet) 70 mg PO SA [facility] Last Admin: 04/03/21 10:55 Dose: 70 mg Documented by: Amlodipine Besylate (Amlodipine Besylate 2.5 Mg Tablet) 2.5 mg PO BEDTIME [facility]; Protocol Last Admin: 04/05/21 20:57 Dose: 2.5 mg Documented by: Atorvastatin Calcium (Atorvastatin Calcium 80 Mg Tablet) 80 mg PO DAILY [facility] Last Admin: 04/06/21 08:46 Dose: 80 mg Documented by: Bupropion HCl (Bupropion Hcl Xl 150 Mg Tab.Er.24h) 150 mg PO DAILY [facility] Last Admin: 04/06/21 08:47 Dose: 150 mg Documented by: Celecoxib (Celecoxib 200 Mg Capsule) 200 mg PO BID [facility] Last Admin: 04/06/21 08:45 Dose: 200 mg Documented by: Finasteride (Finasteride 5 Mg Tablet) 5 mg PO DAILY [facility] Last Admin: 04/06/21 08:50 Dose: 5 mg Documented by: Hydroxyzine HCl (Hydroxyzine Hcl 25 Mg Tablet) 25 mg PO Q6H PRN PRN Reason: Anxiety Last Admin: 04/03/21 20:15 Dose: 25 mg Documented by: Isosorbide Mononitrate (Isosorbide Mononitrate 60 Mg Tab.Er.24h) 60 mg PO DAILY [facility]; Protocol Last Admin: 04/06/21 08:46 Dose: 60 mg Documented by: Lamotrigine (Lamotrigine 25 Mg Tablet) 50 mg PO BID [facility] Last Admin: 04/06/21 08:45 Dose: 50 mg Documented by: Magnesium Hydroxide (Milk Of Magnesia 30 Ml Oral.Susp) 30 ml PO DAILY PRN PRN Reason: Constipation Magnesium Hydroxide (Milk Of Magnesia 30 Ml Oral.Susp) 30 ml PO DAILY PRN PRN Reason: Constipation Melatonin (Melatonin 3 Mg Tablet) 3 mg PO BEDTIME PRN PRN Reason: insomnia Last Admin: 04/03/21 20:14 Dose: 3 mg Documented by: Metformin HCl (Metformin Hcl Er 500 Mg Tab.Er.24h) 500 mg PO DAILY [facility] Last Admin: 04/06/21 08:47 Dose: 500 mg Documented by: Metoprolol Tartrate (Metoprolol Tartrate 12.5 Mg Halftab) 12.5 mg PO BID [facility]; Protocol Last Admin: 04/06/21 08:45 Dose: 12.5 mg Documented by: Patient Own Med ( Alfuzosin Hcl Er 10mg) 1 each PO BEDTIME [facility] Last Admin: 04/05/21 20:54 Dose: 1 each Documented by: Patient Own Med ( (Lumigan 0.01% Soln)) 1 each EYE-BOTH BEDTIME [facility] Last Admin: 04/05/21 20:54 Dose: 1 each Documented by: Olanzapine (Olanzapine 10 Mg Tablet) 10 mg PO BEDTIME [facility] Last Admin: 04/05/21 20:56 Dose: 10 mg Documented by: Omeprazole (Omeprazole 20 Mg Capsule.Dr) 20 mg PO DAILY@0630 [facility] Last Admin: 04/06/21 06:56 Dose: 20 mg Documented by: Pharmacy Consult (Consult Rx Perform Med Rec) 1 each MISCELLANE ONCE PRN PRN Reason: Consult order Pharmacy Consult (Consult Rx Perform Med Rec) 1 each MISCELLANE ONCE PRN PRN Reason: Consult order Trazodone HCl (Trazodone Hcl 50 Mg Tablet) 50 mg PO BEDTIME PRN PRN Reason: Insomnia Last Admin: 03/20/21 01:20 Dose: 50 mg Documented by: Allergies Allergies Allergy/AdvReac Type Severity Reaction Status Date / Time metoprolol AdvReac Unknown bradycardia Verified 03/16/21 14:28 timolol AdvReac Unknown low bp Verified 03/16/21 14:28 tamsulosin [From Flomax] AdvReac Diarrhea Verified 03/22/21 13:42 beta blockers AdvReac Hypotension Uncoded 03/22/21 13:46 Assessment & Plan Assessment & Plan (1) Bipolar disorder: Status: Acute Code(s): F31.9 - Bipolar disorder, unspecified (2) Elbow fracture, right: Qualifiers: Encounter type: initial encounter Fracture type: closed Qualified Code(s): S42.401A - Unspecified fracture of lower end of right humerus, initial encounter for closed fracture Status: Acute Code(s): S42.401A - Unspecified fracture of lower end of right humerus, initial encounter for closed fracture Assessment and Plan: The patient is an elderly male with a history of bipolar disorder with good social support referred to the facility for exacerbation of mood symptoms in the context of poor compliance. Plan 1. Keep same treatment, increase Zyprexa up to 10 mgif he is over-sedated in the morning.? We will continue with Wellbutrin XL. Patient does have a history of response to ECT but at this moment it seems that he is responding to medication management. 2. In general, we have seen an improvement of his mood but he still mildly dysphoric. We discussed risks benefits, and side effects and he agreed to increase Lamictal up to 50 mg p.o. b.i.d. to target depression and mood lability. 3. ECT was considered and he was agreeable on the treatment I spent minutes with the patient and/or on the patient floor today, greater than?50% of which was spent counseling/coordinating care. Reason for contiued inpatient stay Substantial Risk for: inability to function, rapid decompensation and med/psych decompensation
[2021-04-06 20:20] VITALS: BP 114/67; PULSE 58; RESP 20; TEMP 36.1; O2SAT 95
[2021-04-06] MEDS: OLANZapine 10 MG TABLET PO (20:20)
[2021-04-06 20:24] VITALS: BP 114/67; PULSE 58
[2021-04-06] MEDS: amLODIPine Besylate 2.5 MG TABLET PO (20:24)
[2021-04-06 20:26] VITALS: BP 114/67; PULSE 58
[2021-04-06 20:47] LABS: Glucose, Whole Blood 143 mg/dL (60-115)
--- NOTE | 2021-04-07 | ECG_ITS ---
Test Reason : ECT Blood Pressure : / mmHG Vent. Rate : 055 BPM Atrial Rate : 055 BPM P-R Int : 302 ms QRS Dur : 088 ms QT Int : 406 ms P-R-T Axes : 000 -01 029 degrees QTc Int : 388 ms Atrial-paced rhythm with prolonged AV conduction RSR' or QR pattern in V1 suggests right ventricular conduction delay Abnormal ECG pacemaker is new Referred By: Paul Whitmore Electronically Signed By:ALMA ROSA LOFTON MD
[2021-04-07 06:00] VITALS: BP 138/74; PULSE 70; TEMP 35.9; O2SAT 95
[2021-04-07] MEDS: Omeprazole 20 MG CAPSULE.DR PO (06:07)
[2021-04-07 08:01] VITALS: BP 138/74; PULSE 70
[2021-04-07] MEDS: Isosorbide Mononitrate 60 MG TAB.ER.24H PO (08:01)
[2021-04-07] MEDS: lamoTRIgine 25 MG TABLET 50 MG PO ×2 (08:01→21:31)
[2021-04-07] MEDS: Metoprolol Tartrate 12.5 MG HALFTAB PO (08:01)
[2021-04-07] MEDS: metFORMIN HCl ER 500 MG TAB.ER.24H PO (08:02)
[2021-04-07] MEDS: buPROPion HCl XL 150 MG TAB.ER.24H PO (08:02)
[2021-04-07] MEDS: Atorvastatin Calcium 80 MG TABLET PO (08:02)
[2021-04-07] MEDS: Celecoxib 200 MG CAPSULE PO ×2 (08:02→21:17)
[2021-04-07] MEDS: Finasteride 5 MG TABLET PO (08:04)
[2021-04-07 09:22] LABS: Glucose, Whole Blood 203 mg/dL (60-115)
--- NOTE | 2021-04-07 16:24 | HO.PSYCHPN ---
Subjective Subjective Date of Service: 04/07/21 Reason For Visit: Depression ? OD Sub abuse Subjective Notes: Conditional Voluntary Interim History: The nursing staff reported the patient has not have new changes. He is isolative, he attends to groups only with a lot of encouragement. The OT staff reported that he attended just related to groups. On interview, the patient reports still feeling dysphoric, he does not feel any better and we discussed at length possibility of ECT and he wanted to have the procedure. We will talk with his daughter Medication Compliance: Yes Side effects from medications: No Attending Groups: Intermittent Review of Systems Review of Systems Yes all other systems are reviewed and are negative Mental Status Exam Mental Status Exam Patient Appearance: Disheveled Patient Orientation: Person and Situation Level of Consciousness: Awake and Appropriate Patient Behavior: Cooperative Mood Description: Depressed Affect Description: Constricted Patient Cognition Impaired: Yes Ability to Follow Directions: Good Speech Pattern: Appropriate Hallucinations: None Delusions: Not Present Thought Process: Evasive Thought Content: positive for Circumstantial and positive for Poverty of Content Depressive Symptoms: Isolating-Friends/Family Judgement: Fair Diagnostics Vital Signs (24Hr): Vital Signs - 24 hr 04/06/21 20:20 04/06/21 20:24 04/06/21 20:26 Temperature 97 F Pulse Rate 58 58 58 Respiratory Rate 20 Blood Pressure 114/67 114/67 114/67 Pulse Oximetry 95 04/07/21 06:00 04/07/21 08:01 Temperature 96.6 F L Pulse Rate 70 70 Respiratory Rate Blood Pressure 138/74 138/74 Pulse Oximetry 95 Body Mass Index 24.9 Labs Results: 03/16/21 19:42 04/01/21 09:41 Labs: Laboratory Results - last 48 hr 04/05/21 04/05/21 04/06/21 17:24 20:39 20:36 POC Glucose 159 H 157 H 143 H 04/07/21 09:16 POC Glucose 203 H Imaging Radiology Impressions: ITS Impressions Cervical Spine CT 03/16/21 15:12 IMPRESSION: 1. No acute intracranial pathology. 2. No CT evidence of acute cervical spine fracture or traumatic subluxation 3. Irregular 1.5 cm lesion right upper lobe. This is chronic unchanged since CAT scan of December 03, 2019. Elbow X-Ray 03/16/21 15:12 IMPRESSION: Arthritis. No fracture or dislocation seen. EXAMINATION: Right elbow x-ray CLINICAL INFORMATION: Pain post fall COMPARISON: None. TECHNIQUE: 3 views of the right elbow FINDINGS: There is a comminuted displaced fracture of the olecranon. No other fracture is seen. Joint spaces are normal. There is an elbow joint effusion. There is soft tissue swelling over the fracture. IMPRESSION: Comminuted displaced fracture of the olecranon. EXAMINATION: Right shoulder x-ray CLINICAL INFORMATION: Pain post fall COMPARISON: None. TECHNIQUE: 3 views of the right shoulder FINDINGS: Bone alignment is normal. No fracture or dislocation is seen. The glenohumeral joint is normal. There is arthritis at the acromioclavicular joint. Soft tissues are unremarkable. IMPRESSION: Arthritis at the acromioclavicular joint. EXAMINATION: Chest x-ray CLINICAL INFORMATION: Pain post fall COMPARISON: Previous chest x-ray August 2016 TECHNIQUE: One view of the chest FINDINGS: The cardiac silhouette is slightly enlarged. Thoracic aorta is tortuous. The pulmonary tavon appear prominent. There is a new right subclavian dual chamber pacemaker. There is a small dense right upper lobe nodule that appears unchanged. The lungs are otherwise clear. There is no pleural effusion or pneumothorax. There are surgical clips in the left axilla. There are degenerative changes of the spine. IMPRESSION: No evidence for acute disease in the chest. Prominent pulmonary tavon questionable for enlarged pulmonary arteries versus lymphadenopathy. Head CT 03/16/21 15:12 IMPRESSION: 1. No acute intracranial pathology. 2. No CT evidence of acute cervical spine fracture or traumatic subluxation 3. Irregular 1.5 cm lesion right upper lobe. This is chronic unchanged since CAT scan of December 03, 2019. Shoulder X-Ray 03/16/21 15:12 IMPRESSION: Arthritis. No fracture or dislocation seen. EXAMINATION: Right elbow x-ray CLINICAL INFORMATION: Pain post fall COMPARISON: None. TECHNIQUE: 3 views of the right elbow FINDINGS: There is a comminuted displaced fracture of the olecranon. No other fracture is seen. Joint spaces are normal. There is an elbow joint effusion. There is soft tissue swelling over the fracture. IMPRESSION: Comminuted displaced fracture of the olecranon. EXAMINATION: Right shoulder x-ray CLINICAL INFORMATION: Pain post fall COMPARISON: None. TECHNIQUE: 3 views of the right shoulder FINDINGS: Bone alignment is normal. No fracture or dislocation is seen. The glenohumeral joint is normal. There is arthritis at the acromioclavicular joint. Soft tissues are unremarkable. IMPRESSION: Arthritis at the acromioclavicular joint. EXAMINATION: Chest x-ray CLINICAL INFORMATION: Pain post fall COMPARISON: Previous chest x-ray August 2016 TECHNIQUE: One view of the chest FINDINGS: The cardiac silhouette is slightly enlarged. Thoracic aorta is tortuous. The pulmonary tavon appear prominent. There is a new right subclavian dual chamber pacemaker. There is a small dense right upper lobe nodule that appears unchanged. The lungs are otherwise clear. There is no pleural effusion or pneumothorax. There are surgical clips in the left axilla. There are degenerative changes of the spine. IMPRESSION: No evidence for acute disease in the chest. Prominent pulmonary tavon questionable for enlarged pulmonary arteries versus lymphadenopathy. Wrist X-Ray 03/16/21 15:12 IMPRESSION: Arthritis. No fracture or dislocation seen. EXAMINATION: Right elbow x-ray CLINICAL INFORMATION: Pain post fall COMPARISON: None. TECHNIQUE: 3 views of the right elbow FINDINGS: There is a comminuted displaced fracture of the olecranon. No other fracture is seen. Joint spaces are normal. There is an elbow joint effusion. There is soft tissue swelling over the fracture. IMPRESSION: Comminuted displaced fracture of the olecranon. EXAMINATION: Right shoulder x-ray CLINICAL INFORMATION: Pain post fall COMPARISON: None. TECHNIQUE: 3 views of the right shoulder FINDINGS: Bone alignment is normal. No fracture or dislocation is seen. The glenohumeral joint is normal. There is arthritis at the acromioclavicular joint. Soft tissues are unremarkable. IMPRESSION: Arthritis at the acromioclavicular joint. EXAMINATION: Chest x-ray CLINICAL INFORMATION: Pain post fall COMPARISON: Previous chest x-ray August 2016 TECHNIQUE: One view of the chest FINDINGS: The cardiac silhouette is slightly enlarged. Thoracic aorta is tortuous. The pulmonary tavon appear prominent. There is a new right subclavian dual chamber pacemaker. There is a small dense right upper lobe nodule that appears unchanged. The lungs are otherwise clear. There is no pleural effusion or pneumothorax. There are surgical clips in the left axilla. There are degenerative changes of the spine. IMPRESSION: No evidence for acute disease in the chest. Prominent pulmonary tavon questionable for enlarged pulmonary arteries versus lymphadenopathy. Chest X-Ray 03/16/21 15:13 IMPRESSION: Arthritis. No fracture or dislocation seen. EXAMINATION: Right elbow x-ray CLINICAL INFORMATION: Pain post fall COMPARISON: None. TECHNIQUE: 3 views of the right elbow FINDINGS: There is a comminuted displaced fracture of the olecranon. No other fracture is seen. Joint spaces are normal. There is an elbow joint effusion. There is soft tissue swelling over the fracture. IMPRESSION: Comminuted displaced fracture of the olecranon. EXAMINATION: Right shoulder x-ray CLINICAL INFORMATION: Pain post fall COMPARISON: None. TECHNIQUE: 3 views of the right shoulder FINDINGS: Bone alignment is normal. No fracture or dislocation is seen. The glenohumeral joint is normal. There is arthritis at the acromioclavicular joint. Soft tissues are unremarkable. IMPRESSION: Arthritis at the acromioclavicular joint. EXAMINATION: Chest x-ray CLINICAL INFORMATION: Pain post fall COMPARISON: Previous chest x-ray August 2016 TECHNIQUE: One view of the chest FINDINGS: The cardiac silhouette is slightly enlarged. Thoracic aorta is tortuous. The pulmonary tavon appear prominent. There is a new right subclavian dual chamber pacemaker. There is a small dense right upper lobe nodule that appears unchanged. The lungs are otherwise clear. There is no pleural effusion or pneumothorax. There are surgical clips in the left axilla. There are degenerative changes of the spine. IMPRESSION: No evidence for acute disease in the chest. Prominent pulmonary tavon questionable for enlarged pulmonary arteries versus lymphadenopathy. Elbow X-Ray 03/25/21 14:11 IMPRESSION: No change in the comminuted displaced olecranon fracture. Knee X-Ray 04/01/21 11:28 IMPRESSION: Moderate to large joint effusion and degenerative changes. Elbow X-Ray 04/01/21 13:59 IMPRESSION: Comminuted fracture proximal olecranon. Medications Medications Current Medications Acetaminophen (Acetaminophen 325 Mg Tablet) 650 mg PO Q6H PRN PRN Reason: Headache/Pain Mild Scale (1-3) Last Admin: 03/31/21 23:54 Dose: 650 mg Documented by: Acetaminophen (Acetaminophen 325 Mg Tablet) 650 mg PO Q6H PRN PRN Reason: Headache/Pain Mild Scale (1-3) Al Hydroxide/Mg Hydroxide (Magnesium Hydrox/Alum Hydrox 30 Ml Oral.Susp) 30 ml PO Q6H PRN PRN Reason: Heartburn/Nausea Alendronate Sodium (Alendronate Sodium 70 Mg Tablet) 70 mg PO SA [facility] Last Admin: 04/03/21 10:55 Dose: 70 mg Documented by: Amlodipine Besylate (Amlodipine Besylate 2.5 Mg Tablet) 2.5 mg PO BEDTIME [facility]; Protocol Last Admin: 04/06/21 20:24 Dose: 2.5 mg Documented by: Atorvastatin Calcium (Atorvastatin Calcium 80 Mg Tablet) 80 mg PO DAILY [facility] Last Admin: 04/07/21 08:02 Dose: 80 mg Documented by: Bupropion HCl (Bupropion Hcl Xl 150 Mg Tab.Er.24h) 150 mg PO DAILY [facility] Last Admin: 04/07/21 08:02 Dose: 150 mg Documented by: Celecoxib (Celecoxib 200 Mg Capsule) 200 mg PO BID [facility] Last Admin: 04/07/21 08:02 Dose: 200 mg Documented by: Finasteride (Finasteride 5 Mg Tablet) 5 mg PO DAILY [facility] Last Admin: 04/07/21 08:04 Dose: 5 mg Documented by: Hydroxyzine HCl (Hydroxyzine Hcl 25 Mg Tablet) 25 mg PO Q6H PRN PRN Reason: Anxiety Last Admin: 04/03/21 20:15 Dose: 25 mg Documented by: Isosorbide Mononitrate (Isosorbide Mononitrate 60 Mg Tab.Er.24h) 60 mg PO DAILY [facility]; Protocol Last Admin: 04/07/21 08:01 Dose: 60 mg Documented by: Lamotrigine (Lamotrigine 25 Mg Tablet) 50 mg PO BID [facility] Last Admin: 04/07/21 08:01 Dose: 50 mg Documented by: Magnesium Hydroxide (Milk Of Magnesia 30 Ml Oral.Susp) 30 ml PO DAILY PRN PRN Reason: Constipation Magnesium Hydroxide (Milk Of Magnesia 30 Ml Oral.Susp) 30 ml PO DAILY PRN PRN Reason: Constipation Melatonin (Melatonin 3 Mg Tablet) 3 mg PO BEDTIME PRN PRN Reason: insomnia Last Admin: 04/03/21 20:14 Dose: 3 mg Documented by: Metformin HCl (Metformin Hcl Er 500 Mg Tab.Er.24h) 500 mg PO DAILY [facility] Last Admin: 04/07/21 08:02 Dose: 500 mg Documented by: Metoprolol Tartrate (Metoprolol Tartrate 12.5 Mg Halftab) 12.5 mg PO BID [facility]; Protocol Last Admin: 04/07/21 08:01 Dose: 12.5 mg Documented by: Patient Own Med ( Alfuzosin Hcl Er 10mg) 1 each PO BEDTIME [facility] Last Admin: 04/06/21 20:27 Dose: 1 each Documented by: Patient Own Med ( (Lumigan 0.01% Soln)) 1 each EYE-BOTH BEDTIME [facility] Last Admin: 04/06/21 20:28 Dose: 1 each Documented by: Olanzapine (Olanzapine 10 Mg Tablet) 10 mg PO BEDTIME [facility] Last Admin: 04/06/21 20:20 Dose: 10 mg Documented by: Omeprazole (Omeprazole 20 Mg Capsule.Dr) 20 mg PO DAILY@0630 [facility] Last Admin: 04/07/21 06:07 Dose: 20 mg Documented by: Pharmacy Consult (Consult Rx Perform Med Rec) 1 each MISCELLANE ONCE PRN PRN Reason: Consult order Pharmacy Consult (Consult Rx Perform Med Rec) 1 each MISCELLANE ONCE PRN PRN Reason: Consult order Trazodone HCl (Trazodone Hcl 50 Mg Tablet) 50 mg PO BEDTIME PRN PRN Reason: Insomnia Last Admin: 03/20/21 01:20 Dose: 50 mg Documented by: Allergies Allergies Allergy/AdvReac Type Severity Reaction Status Date / Time metoprolol AdvReac Unknown bradycardia Verified 03/16/21 14:28 timolol AdvReac Unknown low bp Verified 03/16/21 14:28 tamsulosin [From Flomax] AdvReac Diarrhea Verified 03/22/21 13:42 beta blockers AdvReac Hypotension Uncoded 03/22/21 13:46 Assessment & Plan Assessment & Plan (1) Bipolar disorder: Status: Acute Code(s): F31.9 - Bipolar disorder, unspecified (2) Elbow fracture, right: Qualifiers: Encounter type: initial encounter Fracture type: closed Qualified Code(s): S42.401A - Unspecified fracture of lower end of right humerus, initial encounter for closed fracture Status: Acute Code(s): S42.401A - Unspecified fracture of lower end of right humerus, initial encounter for closed fracture Assessment and Plan: The patient is an elderly male with a history of bipolar disorder with good social support referred to the facility for exacerbation of mood symptoms in the context of poor compliance. Plan 1. Keep same treatment, increase Zyprexa up to 10 mgif he is over-sedated in the morning.? We will continue with Wellbutrin XL. Patient does have a history of response to ECT but at this moment it seems that he is responding to medication management. 2. In general, we have seen an improvement of his mood but he still mildly dysphoric. We discussed risks benefits, and side effects and he agreed to increase Lamictal up to 50 mg p.o. b.i.d. to target depression and mood lability. 3. ECT was considered and he was agreeable on the treatment I spent minutes with the patient and/or on the patient floor today, greater than?50% of which was spent counseling/coordinating care. Reason for contiued inpatient stay Substantial Risk for: inability to function, rapid decompensation and med/psych decompensation
[2021-04-07 19:15] VITALS: BP 130/60; PULSE 56; RESP 18; TEMP 36.8; O2SAT 95
[2021-04-07 21:17] VITALS: BP 130/60; PULSE 56
[2021-04-07] MEDS: amLODIPine Besylate 2.5 MG TABLET PO (21:17)
[2021-04-07] MEDS: OLANZapine 10 MG TABLET PO (21:17)
[2021-04-07 21:31] VITALS: BP 130/60; PULSE 56
[2021-04-07 21:36] LABS: Glucose, Whole Blood 156 mg/dL (60-115)
[2021-04-08] MEDS: Melatonin 3 MG TABLET PO (01:54)
[2021-04-08 06:00] VITALS: BP 112/62; PULSE 56; TEMP 35.5; O2SAT 94
[2021-04-08] MEDS: Omeprazole 20 MG CAPSULE.DR PO (06:09)
[2021-04-08 07:28] LABS: Creatinine Clr Calc Pharmacy 62.3; Estimated Glomerular Filt Rate > 60
[2021-04-08 07:59] VITALS: BP 112/62; PULSE 56
[2021-04-08] MEDS: Metoprolol Tartrate 12.5 MG HALFTAB PO ×2 (07:59→20:39)
[2021-04-08] MEDS: Celecoxib 200 MG CAPSULE PO ×2 (07:59→20:39)
[2021-04-08] MEDS: buPROPion HCl XL 150 MG TAB.ER.24H PO (07:59)
[2021-04-08] MEDS: Atorvastatin Calcium 80 MG TABLET PO (07:59)
[2021-04-08 08:00] VITALS: BP 112/62; PULSE 56
[2021-04-08] MEDS: metFORMIN HCl ER 500 MG TAB.ER.24H PO (08:00)
[2021-04-08] MEDS: Isosorbide Mononitrate 60 MG TAB.ER.24H PO (08:00)
[2021-04-08] MEDS: Finasteride 5 MG TABLET PO (08:00)
[2021-04-08] MEDS: lamoTRIgine 25 MG TABLET 50 MG PO (08:00)
[2021-04-08 09:11] LABS: Glucose, Whole Blood 208 mg/dL (60-115)
[2021-04-08 11:27] VITALS: BMI 25.3
--- NOTE | 2021-04-08 15:46 | HO.PSYCHPN ---
Subjective Subjective Date of Service: 04/08/21 Reason For Visit: Depression ? OD Sub abuse Subjective Notes: Conditional Voluntary Interim History: Occupational therapist reported that the patient has shown more range of affect but still his dysphoric. The nursing staff reported full compliance with treatment. On interview, the patient reports being depressed and he is willing to have ECT to improve his mood. Medication Compliance: Yes Side effects from medications: No Attending Groups: Intermittent Review of Systems Acute medical concerns: No Medical Review of Systems: unchanged Review of Systems Review of Systems Yes all other systems are reviewed and are negative Mental Status Exam Mental Status Exam Patient Appearance: Well Grooomed Patient Orientation: Person, Place and Situation Level of Consciousness: Awake and Appropriate Patient Behavior: Cooperative Mood Description: Depressed Affect Description: Constricted Patient Cognition Impaired: No Speech Pattern: Appropriate Hallucinations: None Delusions: Not Present Thought Process: Linear Thought Content: positive for Circumstantial Depressive Symptoms: Hopelessness, Isolating-Friends/Family and Low Self Esteem Judgement: Fair Diagnostics Vital Signs (24Hr): Vital Signs - 24 hr 04/07/21 19:15 04/07/21 21:17 04/07/21 21:31 Temperature 98.2 F Pulse Rate 56 56 56 Respiratory Rate 18 Blood Pressure 130/60 130/60 130/60 Pulse Oximetry 95 04/08/21 06:00 04/08/21 07:59 04/08/21 08:00 Temperature 96 F L Pulse Rate 56 56 56 Respiratory Rate Blood Pressure 112/62 112/62 112/62 Pulse Oximetry 94 Body Mass Index 25.3 Labs Results: 03/16/21 19:42 04/08/21 07:05 Labs: Laboratory Results - last 48 hr 04/06/21 04/07/21 04/07/21 20:36 09:16 21:21 Creatinine Estim Creat Clear Calc Estimated GFR POC Glucose 143 H 203 H 156 H 04/08/21 04/08/21 07:05 09:06 Creatinine 0.85 Estim Creat Clear Calc 62.3 Estimated GFR > 60 POC Glucose 208 H Imaging Radiology Impressions: ITS Impressions Cervical Spine CT 03/16/21 15:12 IMPRESSION: 1. No acute intracranial pathology. 2. No CT evidence of acute cervical spine fracture or traumatic subluxation 3. Irregular 1.5 cm lesion right upper lobe. This is chronic unchanged since CAT scan of December 03, 2019. Elbow X-Ray 03/16/21 15:12 IMPRESSION: Arthritis. No fracture or dislocation seen. EXAMINATION: Right elbow x-ray CLINICAL INFORMATION: Pain post fall COMPARISON: None. TECHNIQUE: 3 views of the right elbow FINDINGS: There is a comminuted displaced fracture of the olecranon. No other fracture is seen. Joint spaces are normal. There is an elbow joint effusion. There is soft tissue swelling over the fracture. IMPRESSION: Comminuted displaced fracture of the olecranon. EXAMINATION: Right shoulder x-ray CLINICAL INFORMATION: Pain post fall COMPARISON: None. TECHNIQUE: 3 views of the right shoulder FINDINGS: Bone alignment is normal. No fracture or dislocation is seen. The glenohumeral joint is normal. There is arthritis at the acromioclavicular joint. Soft tissues are unremarkable. IMPRESSION: Arthritis at the acromioclavicular joint. EXAMINATION: Chest x-ray CLINICAL INFORMATION: Pain post fall COMPARISON: Previous chest x-ray August 2016 TECHNIQUE: One view of the chest FINDINGS: The cardiac silhouette is slightly enlarged. Thoracic aorta is tortuous. The pulmonary tavon appear prominent. There is a new right subclavian dual chamber pacemaker. There is a small dense right upper lobe nodule that appears unchanged. The lungs are otherwise clear. There is no pleural effusion or pneumothorax. There are surgical clips in the left axilla. There are degenerative changes of the spine. IMPRESSION: No evidence for acute disease in the chest. Prominent pulmonary tavon questionable for enlarged pulmonary arteries versus lymphadenopathy. Head CT 03/16/21 15:12 IMPRESSION: 1. No acute intracranial pathology. 2. No CT evidence of acute cervical spine fracture or traumatic subluxation 3. Irregular 1.5 cm lesion right upper lobe. This is chronic unchanged since CAT scan of December 03, 2019. Shoulder X-Ray 03/16/21 15:12 IMPRESSION: Arthritis. No fracture or dislocation seen. EXAMINATION: Right elbow x-ray CLINICAL INFORMATION: Pain post fall COMPARISON: None. TECHNIQUE: 3 views of the right elbow FINDINGS: There is a comminuted displaced fracture of the olecranon. No other fracture is seen. Joint spaces are normal. There is an elbow joint effusion. There is soft tissue swelling over the fracture. IMPRESSION: Comminuted displaced fracture of the olecranon. EXAMINATION: Right shoulder x-ray CLINICAL INFORMATION: Pain post fall COMPARISON: None. TECHNIQUE: 3 views of the right shoulder FINDINGS: Bone alignment is normal. No fracture or dislocation is seen. The glenohumeral joint is normal. There is arthritis at the acromioclavicular joint. Soft tissues are unremarkable. IMPRESSION: Arthritis at the acromioclavicular joint. EXAMINATION: Chest x-ray CLINICAL INFORMATION: Pain post fall COMPARISON: Previous chest x-ray August 2016 TECHNIQUE: One view of the chest FINDINGS: The cardiac silhouette is slightly enlarged. Thoracic aorta is tortuous. The pulmonary tavon appear prominent. There is a new right subclavian dual chamber pacemaker. There is a small dense right upper lobe nodule that appears unchanged. The lungs are otherwise clear. There is no pleural effusion or pneumothorax. There are surgical clips in the left axilla. There are degenerative changes of the spine. IMPRESSION: No evidence for acute disease in the chest. Prominent pulmonary tavon questionable for enlarged pulmonary arteries versus lymphadenopathy. Wrist X-Ray 03/16/21 15:12 IMPRESSION: Arthritis. No fracture or dislocation seen. EXAMINATION: Right elbow x-ray CLINICAL INFORMATION: Pain post fall COMPARISON: None. TECHNIQUE: 3 views of the right elbow FINDINGS: There is a comminuted displaced fracture of the olecranon. No other fracture is seen. Joint spaces are normal. There is an elbow joint effusion. There is soft tissue swelling over the fracture. IMPRESSION: Comminuted displaced fracture of the olecranon. EXAMINATION: Right shoulder x-ray CLINICAL INFORMATION: Pain post fall COMPARISON: None. TECHNIQUE: 3 views of the right shoulder FINDINGS: Bone alignment is normal. No fracture or dislocation is seen. The glenohumeral joint is normal. There is arthritis at the acromioclavicular joint. Soft tissues are unremarkable. IMPRESSION: Arthritis at the acromioclavicular joint. EXAMINATION: Chest x-ray CLINICAL INFORMATION: Pain post fall COMPARISON: Previous chest x-ray August 2016 TECHNIQUE: One view of the chest FINDINGS: The cardiac silhouette is slightly enlarged. Thoracic aorta is tortuous. The pulmonary tavon appear prominent. There is a new right subclavian dual chamber pacemaker. There is a small dense right upper lobe nodule that appears unchanged. The lungs are otherwise clear. There is no pleural effusion or pneumothorax. There are surgical clips in the left axilla. There are degenerative changes of the spine. IMPRESSION: No evidence for acute disease in the chest. Prominent pulmonary tavon questionable for enlarged pulmonary arteries versus lymphadenopathy. Chest X-Ray 03/16/21 15:13 IMPRESSION: Arthritis. No fracture or dislocation seen. EXAMINATION: Right elbow x-ray CLINICAL INFORMATION: Pain post fall COMPARISON: None. TECHNIQUE: 3 views of the right elbow FINDINGS: There is a comminuted displaced fracture of the olecranon. No other fracture is seen. Joint spaces are normal. There is an elbow joint effusion. There is soft tissue swelling over the fracture. IMPRESSION: Comminuted displaced fracture of the olecranon. EXAMINATION: Right shoulder x-ray CLINICAL INFORMATION: Pain post fall COMPARISON: None. TECHNIQUE: 3 views of the right shoulder FINDINGS: Bone alignment is normal. No fracture or dislocation is seen. The glenohumeral joint is normal. There is arthritis at the acromioclavicular joint. Soft tissues are unremarkable. IMPRESSION: Arthritis at the acromioclavicular joint. EXAMINATION: Chest x-ray CLINICAL INFORMATION: Pain post fall COMPARISON: Previous chest x-ray August 2016 TECHNIQUE: One view of the chest FINDINGS: The cardiac silhouette is slightly enlarged. Thoracic aorta is tortuous. The pulmonary tavon appear prominent. There is a new right subclavian dual chamber pacemaker. There is a small dense right upper lobe nodule that appears unchanged. The lungs are otherwise clear. There is no pleural effusion or pneumothorax. There are surgical clips in the left axilla. There are degenerative changes of the spine. IMPRESSION: No evidence for acute disease in the chest. Prominent pulmonary tavon questionable for enlarged pulmonary arteries versus lymphadenopathy. Elbow X-Ray 03/25/21 14:11 IMPRESSION: No change in the comminuted displaced olecranon fracture. Knee X-Ray 04/01/21 11:28 IMPRESSION: Moderate to large joint effusion and degenerative changes. Elbow X-Ray 04/01/21 13:59 IMPRESSION: Comminuted fracture proximal olecranon. Medications Medications Current Medications Acetaminophen (Acetaminophen 325 Mg Tablet) 650 mg PO Q6H PRN PRN Reason: Headache/Pain Mild Scale (1-3) Last Admin: 03/31/21 23:54 Dose: 650 mg Documented by: Acetaminophen (Acetaminophen 325 Mg Tablet) 650 mg PO Q6H PRN PRN Reason: Headache/Pain Mild Scale (1-3) Al Hydroxide/Mg Hydroxide (Magnesium Hydrox/Alum Hydrox 30 Ml Oral.Susp) 30 ml PO Q6H PRN PRN Reason: Heartburn/Nausea Alendronate Sodium (Alendronate Sodium 70 Mg Tablet) 70 mg PO SA [facility] Last Admin: 04/03/21 10:55 Dose: 70 mg Documented by: Amlodipine Besylate (Amlodipine Besylate 2.5 Mg Tablet) 2.5 mg PO BEDTIME [facility]; Protocol Last Admin: 04/07/21 21:17 Dose: 2.5 mg Documented by: Atorvastatin Calcium (Atorvastatin Calcium 80 Mg Tablet) 80 mg PO DAILY [facility] Last Admin: 04/08/21 07:59 Dose: 80 mg Documented by: Bupropion HCl (Bupropion Hcl Xl 150 Mg Tab.Er.24h) 150 mg PO DAILY [facility] Last Admin: 04/08/21 07:59 Dose: 150 mg Documented by: Celecoxib (Celecoxib 200 Mg Capsule) 200 mg PO BID [facility] Last Admin: 04/08/21 07:59 Dose: 200 mg Documented by: Finasteride (Finasteride 5 Mg Tablet) 5 mg PO DAILY [facility] Last Admin: 04/08/21 08:00 Dose: 5 mg Documented by: Hydroxyzine HCl (Hydroxyzine Hcl 25 Mg Tablet) 25 mg PO Q6H PRN PRN Reason: Anxiety Last Admin: 04/03/21 20:15 Dose: 25 mg Documented by: Isosorbide Mononitrate (Isosorbide Mononitrate 60 Mg Tab.Er.24h) 60 mg PO DAILY [facility]; Protocol Last Admin: 04/08/21 08:00 Dose: 60 mg Documented by: Lamotrigine (Lamotrigine 25 Mg Tablet) 50 mg PO BID [facility] Last Admin: 04/08/21 08:00 Dose: 50 mg Documented by: Magnesium Hydroxide (Milk Of Magnesia 30 Ml Oral.Susp) 30 ml PO DAILY PRN PRN Reason: Constipation Magnesium Hydroxide (Milk Of Magnesia 30 Ml Oral.Susp) 30 ml PO DAILY PRN PRN Reason: Constipation Melatonin (Melatonin 3 Mg Tablet) 3 mg PO BEDTIME PRN PRN Reason: insomnia Last Admin: 04/08/21 01:54 Dose: 3 mg Documented by: Metformin HCl (Metformin Hcl Er 500 Mg Tab.Er.24h) 500 mg PO DAILY [facility] Last Admin: 04/08/21 08:00 Dose: 500 mg Documented by: Metoprolol Tartrate (Metoprolol Tartrate 12.5 Mg Halftab) 12.5 mg PO BID [facility]; Protocol Last Admin: 04/08/21 07:59 Dose: 12.5 mg Documented by: Patient Own Med ( Alfuzosin Hcl Er 10mg) 1 each PO BEDTIME [facility] Last Admin: 04/07/21 21:17 Dose: 1 each Documented by: Patient Own Med ( (Lumigan 0.01% Soln)) 1 each EYE-BOTH BEDTIME [facility] Last Admin: 04/07/21 21:17 Dose: 1 each Documented by: Olanzapine (Olanzapine 10 Mg Tablet) 10 mg PO BEDTIME [facility] Last Admin: 04/07/21 21:17 Dose: 10 mg Documented by: Omeprazole (Omeprazole 20 Mg Capsule.Dr) 20 mg PO DAILY@0630 [facility] Last Admin: 04/08/21 06:09 Dose: 20 mg Documented by: Pharmacy Consult (Consult Rx Perform Med Rec) 1 each MISCELLANE ONCE PRN PRN Reason: Consult order Pharmacy Consult (Consult Rx Perform Med Rec) 1 each MISCELLANE ONCE PRN PRN Reason: Consult order Trazodone HCl (Trazodone Hcl 50 Mg Tablet) 50 mg PO BEDTIME PRN PRN Reason: Insomnia Last Admin: 03/20/21 01:20 Dose: 50 mg Documented by: Allergies Allergies Allergy/AdvReac Type Severity Reaction Status Date / Time metoprolol AdvReac Unknown bradycardia Verified 03/16/21 14:28 timolol AdvReac Unknown low bp Verified 03/16/21 14:28 tamsulosin [From Flomax] AdvReac Diarrhea Verified 03/22/21 13:42 beta blockers AdvReac Hypotension Uncoded 03/22/21 13:46 Assessment & Plan Assessment & Plan (1) Bipolar disorder: Status: Acute Code(s): F31.9 - Bipolar disorder, unspecified (2) Elbow fracture, right: Qualifiers: Encounter type: initial encounter Fracture type: closed Qualified Code(s): S42.401A - Unspecified fracture of lower end of right humerus, initial encounter for closed fracture Status: Acute Code(s): S42.401A - Unspecified fracture of lower end of right humerus, initial encounter for closed fracture Assessment and Plan: The patient is an elderly male with a history of bipolar disorder with good social support referred to the facility for exacerbation of mood symptoms in the context of poor compliance. Plan 1. Keep same treatment, increase Zyprexa up to 10 mgif he is over-sedated in the morning.? We will continue with Wellbutrin XL. Patient does have a history of response to ECT but at this moment it seems that he is responding to medication management. 2. In general, we have seen an improvement of his mood but he still mildly dysphoric. We discussed risks benefits, and side effects and he agreed to increase Lamictal up to 50 mg p.o. b.i.d. to target depression and mood lability. 3. ECT was considered and he was agreeable on the treatment. It is scheduled for tomorrow morning I spent minutes with the patient and/or on the patient floor today, greater than?50% of which was spent counseling/coordinating care. Reason for contiued inpatient stay Substantial Risk for: inability to function, rapid decompensation and med/psych decompensation
--- NOTE | 2021-04-08 16:59 | HO.PM.IMCN ---
History of Present Illness Data of Consult Service Date: 04/08/21 Requesting physician: Paul Whitmore Primary Care Provider: Teresa Duran MD HPI Asked to see this 80-year-old gentleman admitted to the psychiatric judd with a history of bipolar disorder. He is scheduled for ECT in a.m.. Consult for risk stratification. When queried, patient states he has had multiple sessions of ECT with good results and is hopeful awaiting tomorrow's treatment. He has no cardiac complaints. Does have a pacer but he states he has had multiple ECT treatments with the pacer without issue Review of Systems Review of Systems: Denies chest pain Denies shortness of breath Denies nausea vomiting diarrhea PMFSH Medical History CAD (coronary artery disease) Cardiac pacemaker in situ Diabetes History of left breast cancer HTN (hypertension) Hyperlipidemia Sick sinus syndrome Family History Father CVD (cardiovascular disease) Mother CVD (cardiovascular disease) Brother CVD (cardiovascular disease) Sister Diabetes Son Diabetes Pertinent family history: . Surgical History History of permanent cardiac pacemaker placement Hx of CABG Hx of cataract surgery Hx of mastectomy Social History Household Members: Spouse Housing: House Do you presently have visiting nurse or other home services: No Alcohol intake: never Patient Tobacco Use Status: Former Tobacco user Tobacco use type: Cigarette Advance Directives Date on File: 03/17/21 service: No Sexual orientation: Straight/Heterosexual Meds Allergies Allergy/AdvReac Type Severity Reaction Status Date / Time metoprolol AdvReac Unknown bradycardia Verified 03/16/21 14:28 timolol AdvReac Unknown low bp Verified 03/16/21 14:28 tamsulosin [From Flomax] AdvReac Diarrhea Verified 03/22/21 13:42 beta blockers AdvReac Hypotension Uncoded 03/22/21 13:46 Active Medications: Current Medications Acetaminophen (Acetaminophen 325 Mg Tablet) 650 mg PO Q6H PRN PRN Reason: Headache/Pain Mild Scale (1-3) Last Admin: 03/31/21 23:54 Dose: 650 mg Documented by: Acetaminophen (Acetaminophen 325 Mg Tablet) 650 mg PO Q6H PRN PRN Reason: Headache/Pain Mild Scale (1-3) Al Hydroxide/Mg Hydroxide (Magnesium Hydrox/Alum Hydrox 30 Ml Oral.Susp) 30 ml PO Q6H PRN PRN Reason: Heartburn/Nausea Alendronate Sodium (Alendronate Sodium 70 Mg Tablet) 70 mg PO SA [facility] Last Admin: 04/03/21 10:55 Dose: 70 mg Documented by: Amlodipine Besylate (Amlodipine Besylate 2.5 Mg Tablet) 2.5 mg PO BEDTIME [facility]; Protocol Last Admin: 04/07/21 21:17 Dose: 2.5 mg Documented by: Atorvastatin Calcium (Atorvastatin Calcium 80 Mg Tablet) 80 mg PO DAILY [facility] Last Admin: 04/08/21 07:59 Dose: 80 mg Documented by: Bupropion HCl (Bupropion Hcl Xl 150 Mg Tab.Er.24h) 150 mg PO DAILY [facility] Last Admin: 04/08/21 07:59 Dose: 150 mg Documented by: Celecoxib (Celecoxib 200 Mg Capsule) 200 mg PO BID [facility] Last Admin: 04/08/21 07:59 Dose: 200 mg Documented by: Finasteride (Finasteride 5 Mg Tablet) 5 mg PO DAILY [facility] Last Admin: 04/08/21 08:00 Dose: 5 mg Documented by: Hydroxyzine HCl (Hydroxyzine Hcl 25 Mg Tablet) 25 mg PO Q6H PRN PRN Reason: Anxiety Last Admin: 04/03/21 20:15 Dose: 25 mg Documented by: Isosorbide Mononitrate (Isosorbide Mononitrate 60 Mg Tab.Er.24h) 60 mg PO DAILY [facility]; Protocol Last Admin: 04/08/21 08:00 Dose: 60 mg Documented by: Magnesium Hydroxide (Milk Of Magnesia 30 Ml Oral.Susp) 30 ml PO DAILY PRN PRN Reason: Constipation Magnesium Hydroxide (Milk Of Magnesia 30 Ml Oral.Susp) 30 ml PO DAILY PRN PRN Reason: Constipation Melatonin (Melatonin 3 Mg Tablet) 3 mg PO BEDTIME PRN PRN Reason: insomnia Last Admin: 04/08/21 01:54 Dose: 3 mg Documented by: Metformin HCl (Metformin Hcl Er 500 Mg Tab.Er.24h) 500 mg PO DAILY [facility] Last Admin: 04/08/21 08:00 Dose: 500 mg Documented by: Metoprolol Tartrate (Metoprolol Tartrate 12.5 Mg Halftab) 12.5 mg PO BID [facility]; Protocol Last Admin: 04/08/21 07:59 Dose: 12.5 mg Documented by: Patient Own Med ( Alfuzosin Hcl Er 10mg) 1 each PO BEDTIME [facility] Last Admin: 04/07/21 21:17 Dose: 1 each Documented by: Patient Own Med ( (Lumigan 0.01% Soln)) 1 each EYE-BOTH BEDTIME [facility] Last Admin: 04/07/21 21:17 Dose: 1 each Documented by: Olanzapine (Olanzapine 10 Mg Tablet) 10 mg PO BEDTIME [facility] Last Admin: 04/07/21 21:17 Dose: 10 mg Documented by: Omeprazole (Omeprazole 20 Mg Capsule.Dr) 20 mg PO DAILY@0630 [facility] Last Admin: 04/08/21 06:09 Dose: 20 mg Documented by: Pharmacy Consult (Consult Rx Perform Med Rec) 1 each MISCELLANE ONCE PRN PRN Reason: Consult order Pharmacy Consult (Consult Rx Perform Med Rec) 1 each MISCELLANE ONCE PRN PRN Reason: Consult order Trazodone HCl (Trazodone Hcl 50 Mg Tablet) 50 mg PO BEDTIME PRN PRN Reason: Insomnia Last Admin: 03/20/21 01:20 Dose: 50 mg Documented by: Home Medications Medication Instructions Recorded Confirmed Last Taken Type alendronate 70 mg tablet 70 mg PO SA 05/28/20 03/16/21 03/13/21 History bimatoprost 0.01 % eye drops 1 drp OPHTHALMIC (EYE) BEDTIME 05/28/20 03/16/21 03/15/21 History finasteride 5 mg tablet 5 mg PO DAILY 05/28/20 03/16/21 03/15/21 History lamotrigine 25 mg tablet 25 mg PO BID 05/28/20 03/16/21 03/15/21 History metformin 500 mg tablet,extended 500 mg PO QAM 05/28/20 03/16/21 03/16/21 History release 24 hr pantoprazole 40 mg tablet,delayed 40 mg PO DAILY 05/28/20 03/16/21 03/15/21 History release alfuzosin 10 mg tablet,extended 1 tab PO BEDTIME 03/16/21 03/16/21 03/15/21 History release 24 hr bupropion HCl 300 mg 24 hr tablet, 1 tab PO DAILY 03/16/21 03/16/21 03/15/21 History extended release lorazepam 0.5 mg tablet 1 tab PO BID PRN 03/16/21 03/16/21 03/13/21 History melatonin 3 mg tablet 1 tab PO BEDTIME PRN 03/16/21 03/16/21 03/15/21 History olanzapine 2.5 mg tablet 1 tab PO BEDTIME 03/16/21 03/16/21 03/15/21 History sulfamethoxazole 800 1 tab PO BID 03/16/21 03/16/21 03/16/21 History mg-trimethoprim 160 mg tablet (Bactrim DS) Physical Exam Vital Signs and Narrative: Vital Signs: Last Vital Signs Temp 96 F L 04/08/21 06:00 Pulse 56 04/08/21 08:00 Resp 18 04/07/21 19:15 BP 112/62 04/08/21 08:00 Pulse Ox 94 04/08/21 06:00 Body Mass Index 25.3 Const: Other: No acute distress HENMT: Other: Membranes moist; posterior pharynx clear Resp: Other: Clear to auscultation bilaterally no rales rhonchi or wheezes Cardio: Other: No S4; positive S1-S2; no S3 murmurs rubs or gallops GI: Other: Soft nontender nondistended with normoactive bowel sounds. There is no appreciable hepatosplenomegaly Neuro: Other: Cranial nerves 2-12 were grossly intact as tested. Motor is 5/5 in all extremities. Sensation intact. Cognition unremarkable. Gait steady Extrem: Other: No edema bilaterally Results Labs CBC and Chem 7: 03/16/21 19:42 04/08/21 07:05 Labs: Laboratory Results - last 24 hr 04/07/21 04/08/21 04/08/21 21:21 07:05 09:06 Estim Creat Clear Calc 62.3 Estimated GFR > 60 POC Glucose 156 H 208 H ECG Interpretation: Atrial paced rhythm; interventricular conduction delay Assessment and Plan (1) Bipolar disorder: Status: Acute 80-year-old male with a history of bipolar disease scheduled for ECT in a.m.. Mr. Henderson is medically acceptable for ECT. There are no medically prohibitive issues. May proceed as outlined
[2021-04-08 20:00] VITALS: BP 115/60; PULSE 62; RESP 17; TEMP 37; O2SAT 95
[2021-04-08 20:38] VITALS: BP 115/60; PULSE 62
[2021-04-08] MEDS: OLANZapine 10 MG TABLET PO (20:38)
[2021-04-08] MEDS: amLODIPine Besylate 2.5 MG TABLET PO (20:38)
[2021-04-08 20:39] VITALS: BP 115/60; PULSE 62
[2021-04-09] VITALS (12 sets, daily range): BP systolic 92–119; BP diastolic 49–67; PULSE 55–73; RESP 16–18; TEMP 36.1–36.9; O2SAT 93–99
[2021-04-09 05:44] LABS: Glucose, Whole Blood 102 mg/dL (60-115)
--- NOTE | 2021-04-09 06:50 | MHC.SHP ---
Pre-Procedural Eval Section A Date of Service: 04/09/21 The patient is an INPATIENT: Yes Changes since office visit: No Cold of Flu in the past 2 weeks, No New Medical Problems, No Changes in Medication and No Patient answered all questions The History & Physical has been completed within 30 days and I have reviewed it.: Yes Section B Chief Complaint: Depression ? OD Sub abuse Details of Present Illness: The patient remains dysphoric, responded minimally to AD. Relevant Family History (Specify if Yes): No Relevant Social History: None Present Medications: see Short Stay Collaborative assessment Medical History: No relevant PMH History of Previous Operations: No relevant previous surgery Allergies: Allergies Allergy/AdvReac Type Severity Reaction Status Date / Time metoprolol AdvReac Unknown bradycardia Verified 03/16/21 14:28 timolol AdvReac Unknown low bp Verified 03/16/21 14:28 tamsulosin [From Flomax] AdvReac Diarrhea Verified 03/22/21 13:42 beta blockers AdvReac Hypotension Uncoded 03/22/21 13:46 Review of Systems Sugical H&P ROS: Negative: Constitution, Cardiovascular, Respiratory, Neurological, Psychiatric, Hem-Onc, Allergic/Immunologic, Gastrointestinal, Genitourinary, Musculoskeletal, Integumentary, Endocrine and Eyes/Ears/Nose/Throat Exam Surgical H&P Exam: Normal: HEENT, Normal: Heart, Normal: Lungs, Normal: Extremities, Normal: Abdomen, Normal: Skin and Normal: Neurological Plan Diagnosis/Plan: Unchanged I have reviewed the history and physical and performed a pertinent physical examination on my patient. No changes have occurred unless specified.
--- NOTE | 2021-04-09 07:03 | HO.ECTPROC ---
ECT Procedure Note Diagnosis/Treatment Date of Service: 04/09/21 Diagnosis: Bipolar disorder Current Treatment Number: 1 Treatment: Series Interval Clinical Notes: The patient reported mild improvement of dysphoria ECT Settings Device: THYMATRON DGx Electrode Placement: Right Unilateral Program/Pulse Width: 0.25 Energy Percent: 20 Seizure Duration By EEG (in seconds): 31 By Motor Observation (in seconds): 31 Medications Administration General Anesthetic: Etomidate (14) Muscle Relaxant: Succinylcholine (100) Ancillary Medications Analgesics: Torodol - Pre ECT Anti-emetics: Zofran - Pre ECT Miscillaneous Medications: Propofol (30) Airway Management Airway Management: Bag Mask Ventilation Treatment Recommendations No Changes Recommended: No change Electrode Placement: Right Unilateral Program/Pulse Width: 0.25 Energy Percent: 15 Pt Tolerated Procedure w/o Issue: Yes
--- NOTE | 2021-04-09 07:43 | HO.ANESPROP2 ---
HPI - Anesthesia Eval Consult details Narrative: 80 yo male patient for ECT. Last ECT ?08[facility] Active Problems Active Problems: All Active Problems (Updated 03/17/21 @ 17:33 by Desiree Tyson) Bipolar disorder (Acute) Acute confusion (Acute) Elbow fracture, right (Acute) Major depression (Acute) Acute alteration in mental status (Acute) Chest pressure (Acute) CAD (coronary artery disease) (Acute). Denies recent chest pain Cardiac pacemaker in situ (Acute) HTN (hypertension) (Acute) Diabetes (Acute) Hyperlipidemia (Acute) Past Medical History Medical History CAD (coronary artery disease) Cardiac pacemaker in situ Diabetes History of left breast cancer HTN (hypertension) Hyperlipidemia Sick sinus syndrome Family History Family History Father CVD (cardiovascular disease) Mother CVD (cardiovascular disease) Brother CVD (cardiovascular disease) Sister Diabetes Son Diabetes Family history of problems with anesthesia: No Surgical History Surgical History History of permanent cardiac pacemaker placement Hx of CABG Hx of cataract surgery Hx of mastectomy History of Problems with Anesthesia: No Social History Social History Household Members: Spouse Housing: House Do you presently have visiting nurse or other home services: No Alcohol intake: never Patient Tobacco Use Status: Former Tobacco user Tobacco use type: Cigarette Advance Directives Date on File: 03/17/21 service: No Sexual orientation: Straight/Heterosexual Meds Allergies Allergy/AdvReac Type Severity Reaction Status Date / Time metoprolol AdvReac Unknown bradycardia Verified 03/16/21 14:28 timolol AdvReac Unknown low bp Verified 03/16/21 14:28 tamsulosin [From Flomax] AdvReac Diarrhea Verified 03/22/21 13:42 beta blockers AdvReac Hypotension Uncoded 03/22/21 13:46 Active Medications: Current Medications Acetaminophen (Acetaminophen 325 Mg Tablet) 650 mg PO Q6H PRN PRN Reason: Headache/Pain Mild Scale (1-3) Last Admin: 03/31/21 23:54 Dose: 650 mg Documented by: Acetaminophen (Acetaminophen 325 Mg Tablet) 650 mg PO Q6H PRN PRN Reason: Headache/Pain Mild Scale (1-3) Al Hydroxide/Mg Hydroxide (Magnesium Hydrox/Alum Hydrox 30 Ml Oral.Susp) 30 ml PO Q6H PRN PRN Reason: Heartburn/Nausea Alendronate Sodium (Alendronate Sodium 70 Mg Tablet) 70 mg PO SA [facility] Last Admin: 04/03/21 10:55 Dose: 70 mg Documented by: Amlodipine Besylate (Amlodipine Besylate 2.5 Mg Tablet) 2.5 mg PO BEDTIME [facility]; Protocol Last Admin: 04/08/21 20:38 Dose: 2.5 mg Documented by: Atorvastatin Calcium (Atorvastatin Calcium 80 Mg Tablet) 80 mg PO DAILY [facility] Last Admin: 04/08/21 07:59 Dose: 80 mg Documented by: Bupropion HCl (Bupropion Hcl Xl 150 Mg Tab.Er.24h) 150 mg PO DAILY [facility] Last Admin: 04/08/21 07:59 Dose: 150 mg Documented by: Celecoxib (Celecoxib 200 Mg Capsule) 200 mg PO BID [facility] Last Admin: 04/08/21 20:39 Dose: 200 mg Documented by: Finasteride (Finasteride 5 Mg Tablet) 5 mg PO DAILY [facility] Last Admin: 04/08/21 08:00 Dose: 5 mg Documented by: Hydroxyzine HCl (Hydroxyzine Hcl 25 Mg Tablet) 25 mg PO Q6H PRN PRN Reason: Anxiety Last Admin: 04/03/21 20:15 Dose: 25 mg Documented by: Isosorbide Mononitrate (Isosorbide Mononitrate 60 Mg Tab.Er.24h) 60 mg PO DAILY [facility]; Protocol Last Admin: 04/08/21 08:00 Dose: 60 mg Documented by: Magnesium Hydroxide (Milk Of Magnesia 30 Ml Oral.Susp) 30 ml PO DAILY PRN PRN Reason: Constipation Magnesium Hydroxide (Milk Of Magnesia 30 Ml Oral.Susp) 30 ml PO DAILY PRN PRN Reason: Constipation Melatonin (Melatonin 3 Mg Tablet) 3 mg PO BEDTIME PRN PRN Reason: insomnia Last Admin: 04/08/21 01:54 Dose: 3 mg Documented by: Metformin HCl (Metformin Hcl Er 500 Mg Tab.Er.24h) 500 mg PO DAILY [facility] Last Admin: 04/08/21 08:00 Dose: 500 mg Documented by: Metoprolol Tartrate (Metoprolol Tartrate 12.5 Mg Halftab) 12.5 mg PO BID [facility]; Protocol Last Admin: 04/08/21 20:39 Dose: 12.5 mg Documented by: Patient Own Med ( Alfuzosin Hcl Er 10mg) 1 each PO BEDTIME [facility] Last Admin: 04/08/21 20:40 Dose: 1 each Documented by: Patient Own Med ( (Lumigan 0.01% Soln)) 1 each EYE-BOTH BEDTIME T[facility] Last Admin: 04/08/21 20:42 Dose: 1 each Documented by: Olanzapine (Olanzapine 10 Mg Tablet) 10 mg PO BEDTIME T[facility] Last Admin: 04/08/21 20:38 Dose: 10 mg Documented by: Omeprazole (Omeprazole 20 Mg Capsule.Dr) 20 mg PO DAILY@0630 [facility] Last Admin: 04/08/21 06:09 Dose: 20 mg Documented by: Pharmacy Consult (Consult Rx Perform Med Rec) 1 each MISCELLANE ONCE PRN PRN Reason: Consult order Pharmacy Consult (Consult Rx Perform Med Rec) 1 each MISCELLANE ONCE PRN PRN Reason: Consult order Trazodone HCl (Trazodone Hcl 50 Mg Tablet) 50 mg PO BEDTIME PRN PRN Reason: Insomnia Last Admin: 03/20/21 01:20 Dose: 50 mg Documented by: Home Medications Medication Instructions Recorded Confirmed Last Taken Type alendronate 70 mg tablet 70 mg PO SA 05/28/20 03/16/21 03/13/21 History bimatoprost 0.01 % eye drops 1 drp OPHTHALMIC (EYE) BEDTIME 05/28/20 03/16/21 03/15/21 History finasteride 5 mg tablet 5 mg PO DAILY 05/28/20 03/16/21 03/15/21 History lamotrigine 25 mg tablet 25 mg PO BID 05/28/20 03/16/21 03/15/21 History metformin 500 mg tablet,extended 500 mg PO QAM 05/28/20 03/16/21 03/16/21 History release 24 hr pantoprazole 40 mg tablet,delayed 40 mg PO DAILY 05/28/20 03/16/21 03/15/21 History release alfuzosin 10 mg tablet,extended 1 tab PO BEDTIME 03/16/21 03/16/21 03/15/21 History release 24 hr bupropion HCl 300 mg 24 hr tablet, 1 tab PO DAILY 03/16/21 03/16/21 03/15/21 History extended release lorazepam 0.5 mg tablet 1 tab PO BID PRN 03/16/21 03/16/21 03/13/21 History melatonin 3 mg tablet 1 tab PO BEDTIME PRN 03/16/21 03/16/21 03/15/21 History olanzapine 2.5 mg tablet 1 tab PO BEDTIME 03/16/21 03/16/21 03/15/21 History sulfamethoxazole 800 1 tab PO BID 03/16/21 03/16/21 03/16/21 History mg-trimethoprim 160 mg tablet (Bactrim DS) Exam Exam Date and Time: April 09, 2021 0743 Height,Weight and Vital Signs: Height 5 ft 5 in Weight 69.1 kg Last Vital Signs Temp 96.9 F 04/09/21 06:31 Pulse 55 04/09/21 06:31 Resp 16 04/09/21 06:31 BP 116/67 04/09/21 06:31 Pulse Ox 95 04/09/21 06:31 Pertinent Lab Results Pertinent Lab Results: Laboratory Tests 03/16/21 03/16/21 03/16/21 16:05 16:39 16:59 WBC RBC Hgb Hct MCV MCH MCHC RDW Plt Count MPV Immature Gran % (Auto) Neut % (Auto) Lymph % (Auto) [place] % (Auto) Eos % (Auto) Baso % (Auto) Lymph # (Auto) [place] # (Auto) Eos # (Auto) Baso # (Auto) Abs Immat Gran (auto) Absolute Neuts (auto) Absolute Nucleated RBC Nucleated RBC % (auto) VBG pH VBG pCO2 VBG pO2 VBG HCO3 VBG O2 Saturation VBG Base Excess Sodium 139 Potassium 4.7 Chloride 108 Carbon Dioxide 21 L Anion Gap 15 BUN 18 H Creatinine 1.13 Estim Creat Clear Calc 46.8 Estimated GFR > 60 POC Glucose Random Glucose 103 Lactic Acid Calcium 10.0 Magnesium 2.0 Total Bilirubin 1.1 H Direct Bilirubin 0.5 AST 32 ALT 34 Alkaline Phosphatase 81 Ammonia 27 Total Creatine Kinase 253 H Troponin I High Sens Total Protein 6.4 L Albumin 4.0 TSH Urine Color Urine Appearance Urine pH Ur Specific [place] Urine Protein Urine Glucose (UA) Urine Ketones Urine Blood Urine Nitrite Ur Leukocyte Esterase Urine Opiates Screen Urine Fentanyl Screen Acetaminophen < 1 Ur Barbiturates Screen Ur Phencyclidine Scrn Ur Amphetamines Screen U Benzodiazepines Scrn Urine Cocaine Screen U Marijuana (THC) Screen Ethyl Alcohol COVID-19 (ANDRE) Negative COVID-19 Clin Com See Note 03/16/21 03/16/21 03/16/21 16:59 16:59 16:59 WBC RBC Hgb Hct MCV MCH MCHC RDW Plt Count MPV Immature Gran % (Auto) Neut % (Auto) Lymph % (Auto) [place] % (Auto) Eos % (Auto) Baso % (Auto) Lymph # (Auto) [place] # (Auto) Eos # (Auto) Baso # (Auto) Abs Immat Gran (auto) Absolute Neuts (auto) Absolute Nucleated RBC Nucleated RBC % (auto) VBG pH VBG pCO2 VBG pO2 VBG HCO3 VBG O2 Saturation VBG Base Excess Sodium Potassium Chloride Carbon Dioxide Anion Gap BUN Creatinine Estim Creat Clear Calc Estimated GFR POC Glucose Random Glucose Lactic Acid 2.3 H* Calcium Magnesium Total Bilirubin Direct Bilirubin AST ALT Alkaline Phosphatase Ammonia Total Creatine Kinase Troponin I High Sens 10.1 Total Protein Albumin TSH 1.77 Urine Color Urine Appearance Urine pH Ur Specific [place] Urine Protein Urine Glucose (UA) Urine Ketones Urine Blood Urine Nitrite Ur Leukocyte Esterase Urine Opiates Screen Urine Fentanyl Screen Acetaminophen Ur Barbiturates Screen Ur Phencyclidine Scrn Ur Amphetamines Screen U Benzodiazepines Scrn Urine Cocaine Screen U Marijuana (THC) Screen Ethyl Alcohol COVID-19 ([facility]) COVID-19 Clin Com 03/16/21 03/16/21 03/16/21 16:59 17:05 17:29 WBC RBC Hgb Hct MCV MCH MCHC RDW Plt Count MPV Immature Gran % (Auto) Neut % (Auto) Lymph % (Auto) [place] % (Auto) Eos % (Auto) Baso % (Auto) Lymph # (Auto) [place] # (Auto) Eos # (Auto) Baso # (Auto) Abs Immat Gran (auto) Absolute Neuts (auto) Absolute Nucleated RBC Nucleated RBC % (auto) VBG pH 7.36 VBG pCO2 37 VBG pO2 47 VBG HCO3 21 L VBG O2 Saturation 69.0 VBG Base Excess -3.1 Sodium Potassium Chloride Carbon Dioxide Anion Gap BUN Creatinine Estim Creat Clear Calc Estimated GFR POC Glucose Random Glucose Lactic Acid Calcium Magnesium Total Bilirubin Direct Bilirubin AST ALT Alkaline Phosphatase Ammonia Total Creatine Kinase Troponin I High Sens Total Protein Albumin TSH Urine Color YELLOW Urine Appearance CLEAR Urine pH 6.0 Ur Specific [place] >= 1.030 H Urine Protein NEG Urine Glucose (UA) NEG Urine Ketones 5 Urine Blood NEG Urine Nitrite NEG Ur Leukocyte Esterase NEG Urine Opiates Screen Urine Fentanyl Screen Acetaminophen Ur Barbiturates Screen Ur Phencyclidine Scrn Ur Amphetamines Screen U Benzodiazepines Scrn Urine Cocaine Screen U Marijuana (THC) Screen Ethyl Alcohol < 10 COVID-19 ([facility]RE) COVID-19 [employer] 03/16/21 03/16/21 03/16/21 17:29 17:37 19:10 WBC RBC Hgb Hct MCV MCH MCHC RDW Plt Count MPV Immature Gran % (Auto) Neut % (Auto) Lymph % (Auto) [place] % (Auto) Eos % (Auto) Baso % (Auto) Lymph # (Auto) [place] # (Auto) Eos # (Auto) Baso # (Auto) Abs Immat Gran (auto) Absolute Neuts (auto) Absolute Nucleated RBC Nucleated RBC % (auto) VBG pH VBG pCO2 VBG pO2 VBG HCO3 VBG O2 Saturation VBG Base Excess Sodium Potassium Chloride Carbon Dioxide Anion Gap BUN Creatinine Estim Creat Clear Calc Estimated GFR POC Glucose 94 Random Glucose Lactic Acid 1.5 Calcium Magnesium Total Bilirubin Direct Bilirubin AST ALT Alkaline Phosphatase Ammonia Total Creatine Kinase Troponin I High Sens Total Protein Albumin TSH Urine Color Urine Appearance Urine pH Ur Specific [place] Urine Protein Urine Glucose (UA) Urine Ketones Urine Blood Urine Nitrite Ur Leukocyte Esterase Urine Opiates Screen Not Detected Urine Fentanyl Screen Not Detected Acetaminophen Ur Barbiturates Screen Not Detected Ur Phencyclidine Scrn Not Detected Ur Amphetamines Screen Not Detected U Benzodiazepines Scrn Not Detected Urine Cocaine Screen Not Detected U Marijuana (THC) Screen Not Detected Ethyl Alcohol COVID-19 (ANDRE) COVID-19 [employer] 03/16/21 03/17/21 03/17/21 19:42 00:53 02:46 WBC 8.7 RBC 4.48 L Hgb 13.6 L Hct 40.5 L MCV 90.4 MCH 30.4 MCHC 33.6 RDW 13.8 Plt Count 205 MPV 9.0 L Immature Gran % (Auto) 0.3 Neut % (Auto) 83.2 H Lymph % (Auto) 7.5 L [place] % (Auto) 6.9 Eos % (Auto) 1.6 Baso % (Auto) 0.5 Lymph # (Auto) 0.7 L [place] # (Auto) 0.6 Eos # (Auto) 0.1 Baso # (Auto) 0.0 Abs Immat Gran (auto) 0.03 Absolute Neuts (auto) 7.2 Absolute Nucleated RBC 0.000 Nucleated RBC % (auto) 0.0 VBG pH VBG pCO2 VBG pO2 VBG HCO3 VBG O2 Saturation VBG Base Excess Sodium Potassium Chloride Carbon Dioxide Anion Gap BUN Creatinine Estim Creat Clear Calc Estimated GFR POC Glucose 66 Random Glucose Lactic Acid Calcium Magnesium Total Bilirubin Direct Bilirubin AST ALT Alkaline Phosphatase Ammonia Total Creatine Kinase Troponin I High Sens 10.7 Total Protein Albumin TSH Urine Color Urine Appearance Urine pH Ur Specific [place] Urine Protein Urine Glucose (UA) Urine Ketones Urine Blood Urine Nitrite Ur Leukocyte Esterase Urine Opiates Screen Urine Fentanyl Screen Acetaminophen Ur Barbiturates Screen Ur Phencyclidine Scrn Ur Amphetamines Screen U Benzodiazepines Scrn Urine Cocaine Screen U Marijuana (THC) Screen Ethyl Alcohol COVID-19 (ANDRE) [employer] 03/17/21 03/17/21 03/18/21 03:46 06:27 06:02 WBC RBC Hgb Hct MCV MCH MCHC RDW Plt Count MPV Immature Gran % (Auto) Neut % (Auto) Lymph % (Auto) [place] % (Auto) Eos % (Auto) Baso % (Auto) Lymph # (Auto) [place] # (Auto) Eos # (Auto) Baso # (Auto) Abs Immat Gran (auto) Absolute Neuts (auto) Absolute Nucleated RBC Nucleated RBC % (auto) VBG pH VBG pCO2 VBG pO2 VBG HCO3 VBG O2 Saturation VBG Base Excess Sodium Potassium Chloride Carbon Dioxide Anion Gap BUN Creatinine Estim Creat Clear Calc Estimated GFR POC Glucose 75 122 H 109 Random Glucose Lactic Acid Calcium Magnesium Total Bilirubin Direct Bilirubin AST ALT Alkaline Phosphatase Ammonia Total Creatine Kinase Troponin I High Sens Total Protein Albumin TSH Urine Color Urine Appearance Urine pH Ur Specific [place] Urine Protein Urine Glucose (UA) Urine Ketones Urine Blood Urine Nitrite Ur Leukocyte Esterase Urine Opiates Screen Urine Fentanyl Screen Acetaminophen Ur Barbiturates Screen Ur Phencyclidine Scrn Ur Amphetamines Screen U Benzodiazepines Scrn Urine Cocaine Screen U Marijuana (THC) Screen Ethyl Alcohol COVID-19 (ANDRE) COVID-19 [employer] 03/18/21 03/22/21 03/23/21 07:10 22:05 08:19 WBC RBC Hgb Hct MCV MCH MCHC RDW Plt Count MPV Immature Gran % (Auto) Neut % (Auto) Lymph % (Auto) [place] % (Auto) Eos % (Auto) Baso % (Auto) Lymph # (Auto) [place] # (Auto) Eos # (Auto) Baso # (Auto) Abs Immat Gran (auto) Absolute Neuts (auto) Absolute Nucleated RBC Nucleated RBC % (auto) VBG pH VBG pCO2 VBG pO2 VBG HCO3 VBG O2 Saturation VBG Base Excess Sodium Potassium Chloride Carbon Dioxide Anion Gap BUN Creatinine Estim Creat Clear Calc Estimated GFR POC Glucose 102 161 H 164 H Random Glucose Lactic Acid Calcium Magnesium Total Bilirubin Direct Bilirubin AST ALT Alkaline Phosphatase Ammonia Total Creatine Kinase Troponin I High Sens Total Protein Albumin TSH Urine Color Urine Appearance Urine pH Ur Specific [place] Urine Protein Urine Glucose (UA) Urine Ketones Urine Blood Urine Nitrite Ur Leukocyte Esterase Urine Opiates Screen Urine Fentanyl Screen Acetaminophen Ur Barbiturates Screen Ur Phencyclidine Scrn Ur Amphetamines Screen U Benzodiazepines Scrn Urine Cocaine Screen U Marijuana (THC) Screen Ethyl Alcohol COVID-19 (ANDRE) COVID-19 [employer] 03/23/21 03/24/21 03/24/21 23:21 07:58 10:23 WBC RBC Hgb Hct MCV MCH MCHC RDW Plt Count MPV Immature Gran % (Auto) Neut % (Auto) Lymph % (Auto) [place] % (Auto) Eos % (Auto) Baso % (Auto) Lymph # (Auto) [place] # (Auto) Eos # (Auto) Baso # (Auto) Abs Immat Gran (auto) Absolute Neuts (auto) Absolute Nucleated RBC Nucleated RBC % (auto) VBG pH VBG pCO2 VBG pO2 VBG HCO3 VBG O2 Saturation VBG Base Excess Sodium Potassium Chloride Carbon Dioxide Anion Gap BUN Creatinine 1.07 Estim Creat Clear Calc 49.4 Estimated GFR > 60 POC Glucose 102 171 H Random Glucose Lactic Acid Calcium Magnesium Total Bilirubin Direct Bilirubin AST ALT Alkaline Phosphatase Ammonia Total Creatine Kinase Troponin I High Sens Total Protein Albumin TSH Urine Color Urine Appearance Urine pH Ur Specific [place] Urine Protein Urine Glucose (UA) Urine Ketones Urine Blood Urine Nitrite Ur Leukocyte Esterase Urine Opiates Screen Urine Fentanyl Screen Acetaminophen Ur Barbiturates Screen Ur Phencyclidine Scrn Ur Amphetamines Screen U Benzodiazepines Scrn Urine Cocaine Screen U Marijuana (THC) Screen Ethyl Alcohol COVID-19 (ANDRE) COVID-19 [employer] 03/24/21 03/25/21 03/25/21 21:07 10:07 21:03 WBC RBC Hgb Hct MCV MCH MCHC RDW Plt Count MPV Immature Gran % (Auto) Neut % (Auto) Lymph % (Auto) [place] % (Auto) Eos % (Auto) Baso % (Auto) Lymph # (Auto) [place] # (Auto) Eos # (Auto) Baso # (Auto) Abs Immat Gran (auto) Absolute Neuts (auto) Absolute Nucleated RBC Nucleated RBC % (auto) VBG pH VBG pCO2 VBG pO2 VBG HCO3 VBG O2 Saturation VBG Base Excess Sodium Potassium Chloride Carbon Dioxide Anion Gap BUN Creatinine Estim Creat Clear Calc Estimated GFR POC Glucose 150 H 265 H 134 H Random Glucose Lactic Acid Calcium Magnesium Total Bilirubin Direct Bilirubin AST ALT Alkaline Phosphatase Ammonia Total Creatine Kinase Troponin I High Sens Total Protein Albumin TSH Urine Color Urine Appearance Urine pH Ur Specific [place] Urine Protein Urine Glucose (UA) Urine Ketones Urine Blood Urine Nitrite Ur Leukocyte Esterase Urine Opiates Screen Urine Fentanyl Screen Acetaminophen Ur Barbiturates Screen Ur Phencyclidine Scrn Ur Amphetamines Screen U Benzodiazepines Scrn Urine Cocaine Screen U Marijuana (THC) Screen Ethyl Alcohol COVID-19 (ANDRE) COVID-19 Clin Com 03/27/21 03/27/21 03/28/21 10:49 20:19 10:44 WBC RBC Hgb Hct MCV MCH MCHC RDW Plt Count MPV Immature Gran % (Auto) Neut % (Auto) Lymph % (Auto) [place] % (Auto) Eos % (Auto) Baso % (Auto) Lymph # (Auto) [place] # (Auto) Eos # (Auto) Baso # (Auto) Abs Immat Gran (auto) Absolute Neuts (auto) Absolute Nucleated RBC Nucleated RBC % (auto) VBG pH VBG pCO2 VBG pO2 VBG HCO3 VBG O2 Saturation VBG Base Excess Sodium Potassium Chloride Carbon Dioxide Anion Gap BUN Creatinine Estim Creat Clear Calc Estimated GFR POC Glucose 179 H 160 H 203 H Random Glucose Lactic Acid Calcium Magnesium Total Bilirubin Direct Bilirubin AST ALT Alkaline Phosphatase Ammonia Total Creatine Kinase Troponin I High Sens Total Protein Albumin TSH Urine Color Urine Appearance Urine pH Ur Specific [place] Urine Protein Urine Glucose (UA) Urine Ketones Urine Blood Urine Nitrite Ur Leukocyte Esterase Urine Opiates Screen Urine Fentanyl Screen Acetaminophen Ur Barbiturates Screen Ur Phencyclidine Scrn Ur Amphetamines Screen U Benzodiazepines Scrn Urine Cocaine Screen U Marijuana (THC) Screen Ethyl Alcohol COVID-19 (ANDRE) COVID-19 [employer] 03/28/21 03/29/21 03/29/21 21:46 07:40 20:39 WBC RBC Hgb Hct MCV MCH MCHC RDW Plt Count MPV Immature Gran % (Auto) Neut % (Auto) Lymph % (Auto) [place] % (Auto) Eos % (Auto) Baso % (Auto) Lymph # (Auto) [place] # (Auto) Eos # (Auto) Baso # (Auto) Abs Immat Gran (auto) Absolute Neuts (auto) Absolute Nucleated RBC Nucleated RBC % (auto) VBG pH VBG pCO2 VBG pO2 VBG HCO3 VBG O2 Saturation VBG Base Excess Sodium Potassium Chloride Carbon Dioxide Anion Gap BUN Creatinine Estim Creat Clear Calc Estimated GFR POC Glucose 176 H 147 H 205 H Random Glucose Lactic Acid Calcium Magnesium Total Bilirubin Direct Bilirubin AST ALT Alkaline Phosphatase Ammonia Total Creatine Kinase Troponin I High Sens Total Protein Albumin TSH Urine Color Urine Appearance Urine pH Ur Specific [place] Urine Protein Urine Glucose (UA) Urine Ketones Urine Blood Urine Nitrite Ur Leukocyte Esterase Urine Opiates Screen Urine Fentanyl Screen Acetaminophen Ur Barbiturates Screen Ur Phencyclidine Scrn Ur Amphetamines Screen U Benzodiazepines Scrn Urine Cocaine Screen U Marijuana (THC) Screen Ethyl Alcohol COVID-19 (ANDRE) [employer] 03/30/21 03/30/21 03/30/21 07:42 08:02 21:33 WBC RBC Hgb Hct MCV MCH MCHC RDW Plt Count MPV Immature Gran % (Auto) Neut % (Auto) Lymph % (Auto) [place] % (Auto) Eos % (Auto) Baso % (Auto) Lymph # (Auto) [place] # (Auto) Eos # (Auto) Baso # (Auto) Abs Immat Gran (auto) Absolute Neuts (auto) Absolute Nucleated RBC Nucleated RBC % (auto) VBG pH VBG pCO2 VBG pO2 VBG HCO3 VBG O2 Saturation VBG Base Excess Sodium 138 Potassium 4.7 Chloride 106 Carbon Dioxide 26 Anion Gap 11 L BUN 17 H Creatinine 0.92 Estim Creat Clear Calc 57.5 Estimated GFR > 60 POC Glucose 137 H 211 H Random Glucose 169 H D Lactic Acid Calcium 10.3 H Magnesium Total Bilirubin Direct Bilirubin AST ALT Alkaline Phosphatase Ammonia Total Creatine Kinase Troponin I High Sens Total Protein Albumin TSH Urine Color Urine Appearance Urine pH Ur Specific [place] Urine Protein Urine Glucose (UA) Urine Ketones Urine Blood Urine Nitrite Ur Leukocyte Esterase Urine Opiates Screen Urine Fentanyl Screen Acetaminophen Ur Barbiturates Screen Ur Phencyclidine Scrn Ur Amphetamines Screen U Benzodiazepines Scrn Urine Cocaine Screen U Marijuana (THC) Screen Ethyl Alcohol COVID-19 (ANDRE) COVID-19 Clin Com 03/31/21 03/31/21 04/01/21 07:31 19:52 07:59 WBC RBC Hgb Hct MCV MCH MCHC RDW Plt Count MPV Immature Gran % (Auto) Neut % (Auto) Lymph % (Auto) [place] % (Auto) Eos % (Auto) Baso % (Auto) Lymph # (Auto) [place] # (Auto) Eos # (Auto) Baso # (Auto) Abs Immat Gran (auto) Absolute Neuts (auto) Absolute Nucleated RBC Nucleated RBC % (auto) VBG pH VBG pCO2 VBG pO2 VBG HCO3 VBG O2 Saturation VBG Base Excess Sodium Potassium Chloride Carbon Dioxide Anion Gap BUN Creatinine Estim Creat Clear Calc Estimated GFR POC Glucose 139 H 190 H 150 H Random Glucose Lactic Acid Calcium Magnesium Total Bilirubin Direct Bilirubin AST ALT Alkaline Phosphatase Ammonia Total Creatine Kinase Troponin I High Sens Total Protein Albumin TSH Urine Color Urine Appearance Urine pH Ur Specific [place] Urine Protein Urine Glucose (UA) Urine Ketones Urine Blood Urine Nitrite Ur Leukocyte Esterase Urine Opiates Screen Urine Fentanyl Screen Acetaminophen Ur Barbiturates Screen Ur Phencyclidine Scrn Ur Amphetamines Screen U Benzodiazepines Scrn Urine Cocaine Screen U Marijuana (THC) Screen Ethyl Alcohol COVID-19 (ANDRE) COVID-19 Clin Com 04/01/21 04/01/21 04/02/21 09:41 20:42 08:04 WBC RBC Hgb Hct MCV MCH MCHC RDW Plt Count MPV Immature Gran % (Auto) Neut % (Auto) Lymph % (Auto) [place] % (Auto) Eos % (Auto) Baso % (Auto) Lymph # (Auto) [place] # (Auto) Eos # (Auto) Baso # (Auto) Abs Immat Gran (auto) Absolute Neuts (auto) Absolute Nucleated RBC Nucleated RBC % (auto) VBG pH VBG pCO2 VBG pO2 VBG HCO3 VBG O2 Saturation VBG Base Excess Sodium 138 Potassium 4.6 Chloride 105 Carbon Dioxide 27 Anion Gap 11 L BUN 17 H Creatinine 0.92 Estim Creat Clear Calc 57.5 Estimated GFR > 60 POC Glucose 170 H 149 H Random Glucose 216 H Lactic Acid Calcium 9.6 D Magnesium Total Bilirubin Direct Bilirubin AST ALT Alkaline Phosphatase Ammonia Total Creatine Kinase Troponin I High Sens Total Protein Albumin TSH Urine Color Urine Appearance Urine pH Ur Specific [place] Urine Protein Urine Glucose (UA) Urine Ketones Urine Blood Urine Nitrite Ur Leukocyte Esterase Urine Opiates Screen Urine Fentanyl Screen Acetaminophen Ur Barbiturates Screen Ur Phencyclidine Scrn Ur Amphetamines Screen U Benzodiazepines Scrn Urine Cocaine Screen U Marijuana (THC) Screen Ethyl Alcohol COVID-19 (ANDRE) COVID-19 [employer] 04/02/21 04/03/21 04/03/21 22:21 14:05 22:18 WBC RBC Hgb Hct MCV MCH MCHC RDW Plt Count MPV Immature Gran % (Auto) Neut % (Auto) Lymph % (Auto) [place] % (Auto) Eos % (Auto) Baso % (Auto) Lymph # (Auto) [place] # (Auto) Eos # (Auto) Baso # (Auto) Abs Immat Gran (auto) Absolute Neuts (auto) Absolute Nucleated RBC Nucleated RBC % (auto) VBG pH VBG pCO2 VBG pO2 VBG HCO3 VBG O2 Saturation VBG Base Excess Sodium Potassium Chloride Carbon Dioxide Anion Gap BUN Creatinine Estim Creat Clear Calc Estimated GFR POC Glucose 217 H 136 H 177 H Random Glucose Lactic Acid Calcium Magnesium Total Bilirubin Direct Bilirubin AST ALT Alkaline Phosphatase Ammonia Total Creatine Kinase Troponin I High Sens Total Protein Albumin TSH Urine Color Urine Appearance Urine pH Ur Specific [place] Urine Protein Urine Glucose (UA) Urine Ketones Urine Blood Urine Nitrite Ur Leukocyte Esterase Urine Opiates Screen Urine Fentanyl Screen Acetaminophen Ur Barbiturates Screen Ur Phencyclidine Scrn Ur Amphetamines Screen U Benzodiazepines Scrn Urine Cocaine Screen U Marijuana (THC) Screen Ethyl Alcohol COVID-19 (ANDRE) [employer] 04/04/21 04/04/21 04/05/21 11:08 20:14 05:23 WBC RBC Hgb Hct MCV MCH MCHC RDW Plt Count MPV Immature Gran % (Auto) Neut % (Auto) Lymph % (Auto) [place] % (Auto) Eos % (Auto) Baso % (Auto) Lymph # (Auto) [place] # (Auto) Eos # (Auto) Baso # (Auto) Abs Immat Gran (auto) Absolute Neuts (auto) Absolute Nucleated RBC Nucleated RBC % (auto) VBG pH VBG pCO2 VBG pO2 VBG HCO3 VBG O2 Saturation VBG Base Excess Sodium Potassium Chloride Carbon Dioxide Anion Gap BUN Creatinine Estim Creat Clear Calc Estimated GFR POC Glucose 132 H 152 H 127 H Random Glucose Lactic Acid Calcium Magnesium Total Bilirubin Direct Bilirubin AST ALT Alkaline Phosphatase Ammonia Total Creatine Kinase Troponin I High Sens Total Protein Albumin TSH Urine Color Urine Appearance Urine pH Ur Specific [place] Urine Protein Urine Glucose (UA) Urine Ketones Urine Blood Urine Nitrite Ur Leukocyte Esterase Urine Opiates Screen Urine Fentanyl Screen Acetaminophen Ur Barbiturates Screen Ur Phencyclidine Scrn Ur Amphetamines Screen U Benzodiazepines Scrn Urine Cocaine Screen U Marijuana (THC) Screen Ethyl Alcohol COVID-19 (ANDRE) COVID-19 [employer] 04/05/21 04/05/21 04/06/21 17:24 20:39 20:36 WBC RBC Hgb Hct MCV MCH MCHC RDW Plt Count MPV Immature Gran % (Auto) Neut % (Auto) Lymph % (Auto) [place] % (Auto) Eos % (Auto) Baso % (Auto) Lymph # (Auto) [place] # (Auto) Eos # (Auto) Baso # (Auto) Abs Immat Gran (auto) Absolute Neuts (auto) Absolute Nucleated RBC Nucleated RBC % (auto) VBG pH VBG pCO2 VBG pO2 VBG HCO3 VBG O2 Saturation VBG Base Excess Sodium Potassium Chloride Carbon Dioxide Anion Gap BUN Creatinine Estim Creat Clear Calc Estimated GFR POC Glucose 159 H 157 H 143 H Random Glucose Lactic Acid Calcium Magnesium Total Bilirubin Direct Bilirubin AST ALT Alkaline Phosphatase Ammonia Total Creatine Kinase Troponin I High Sens Total Protein Albumin TSH Urine Color Urine Appearance Urine pH Ur Specific [place] Urine Protein Urine Glucose (UA) Urine Ketones Urine Blood Urine Nitrite Ur Leukocyte Esterase Urine Opiates Screen Urine Fentanyl Screen Acetaminophen Ur Barbiturates Screen Ur Phencyclidine Scrn Ur Amphetamines Screen U Benzodiazepines Scrn Urine Cocaine Screen U Marijuana (THC) Screen Ethyl Alcohol COVID-19 (ANDRE) [employer]DJZ 04/07/21 04/07/21 04/08/21 09:16 21:21 07:05 WBC RBC Hgb Hct MCV MCH MCHC RDW Plt Count MPV Immature Gran % (Auto) Neut % (Auto) Lymph % (Auto) [place] % (Auto) Eos % (Auto) Baso % (Auto) Lymph # (Auto) [place] # (Auto) Eos # (Auto) Baso # (Auto) Abs Immat Gran (auto) Absolute Neuts (auto) Absolute Nucleated RBC Nucleated RBC % (auto) VBG pH VBG pCO2 VBG pO2 VBG HCO3 VBG O2 Saturation VBG Base Excess Sodium Potassium Chloride Carbon Dioxide Anion Gap BUN Creatinine 0.85 Estim Creat Clear Calc 62.3 Estimated GFR > 60 POC Glucose 203 H 156 H Random Glucose Lactic Acid Calcium Magnesium Total Bilirubin Direct Bilirubin AST ALT Alkaline Phosphatase Ammonia Total Creatine Kinase Troponin I High Sens Total Protein Albumin TSH Urine Color Urine Appearance Urine pH Ur Specific [place] Urine Protein Urine Glucose (UA) Urine Ketones Urine Blood Urine Nitrite Ur Leukocyte Esterase Urine Opiates Screen Urine Fentanyl Screen Acetaminophen Ur Barbiturates Screen Ur Phencyclidine Scrn Ur Amphetamines Screen U Benzodiazepines Scrn Urine Cocaine Screen U Marijuana (THC) Screen Ethyl Alcohol COVID-19 (ANDRE) [employer] 04/08/21 04/09/21 09:06 05:34 WBC RBC Hgb Hct MCV MCH MCHC RDW Plt Count MPV Immature Gran % (Auto) Neut % (Auto) Lymph % (Auto) [place] % (Auto) Eos % (Auto) Baso % (Auto) Lymph # (Auto) [place] # (Auto) Eos # (Auto) Baso # (Auto) Abs Immat Gran (auto) Absolute Neuts (auto) Absolute Nucleated RBC Nucleated RBC % (auto) VBG pH VBG pCO2 VBG pO2 VBG HCO3 VBG O2 Saturation VBG Base Excess Sodium Potassium Chloride Carbon Dioxide Anion Gap BUN Creatinine Estim Creat Clear Calc Estimated GFR POC Glucose 208 H 102 Random Glucose Lactic Acid Calcium Magnesium Total Bilirubin Direct Bilirubin AST ALT Alkaline Phosphatase Ammonia Total Creatine Kinase Troponin I High Sens Total Protein Albumin TSH Urine Color Urine Appearance Urine pH Ur Specific [place] Urine Protein Urine Glucose (UA) Urine Ketones Urine Blood Urine Nitrite Ur Leukocyte Esterase Urine Opiates Screen Urine Fentanyl Screen Acetaminophen Ur Barbiturates Screen Ur Phencyclidine Scrn Ur Amphetamines Screen U Benzodiazepines Scrn Urine Cocaine Screen U Marijuana (THC) Screen Ethyl Alcohol COVID-19 (ANDRE) [employer] Airway Mallampati Class: II TM Dist: >3cm Neck ROM: Full Loose/Missing/Broken Teeth: No Heart: RRR Lungs: CTAB Assessment and Plan Assessment Anesthesia Assessment: Chart Reviewed Final Anesthetic Review Family History of Problems with Anesthesia: No History of Problems with Anesthesia: No NPO: Yes ASA Class: III Final Preanesthetic Review: No Changes in Pt Med Stat, Meds/Allgs Chart Reviewed, Consent Obtained/Reviewed and Anes Risks/Benef Reviewed Patient Risk: Intermediate Procedure Risk: Intermediate Assessment/Block/Sedation in SS: Assess/Block/Sedation-SS Anesthetic Plan Anesthetic Plan: GA Disposition: Standard PACU and Inp. Admit - Standard Bed
[2021-04-09] MEDS: Atorvastatin Calcium 80 MG TABLET PO (10:14)
[2021-04-09] MEDS: Celecoxib 200 MG CAPSULE PO ×2 (10:16→20:53)
[2021-04-09] MEDS: Isosorbide Mononitrate 60 MG TAB.ER.24H PO (10:16)
[2021-04-09] MEDS: Omeprazole 20 MG CAPSULE.DR PO (10:16)
[2021-04-09] MEDS: Finasteride 5 MG TABLET PO (10:16)
[2021-04-09] MEDS: metFORMIN HCl ER 500 MG TAB.ER.24H PO (10:17)
[2021-04-09] MEDS: buPROPion HCl XL 150 MG TAB.ER.24H PO (10:17)
--- NOTE | 2021-04-09 13:24 | MHC.CLN ---
F/U NPO THIS AM FOR ECT TX. DIET RESUMED, DIET=DIABETIC 2000 KCAL, GLUCERNA BID.
--- NOTE | 2021-04-09 14:13 | HO.PSYCHPN ---
Subjective Subjective Date of Service: 04/09/21 Reason For Visit: Mood lability Subjective Notes: Conditional Voluntary Interim History: The nursing staff reported the patient has been pleasant and cooperative but still seclusive. We discussed ECT and he decided to go and he had it today. On interview, the patient denies new symptoms. He feels better after ECT. The aids social worker reported that will have a family meeting for Monday or Monday. Review of Systems Acute medical concerns: No Medical Review of Systems: unchanged Mental Status Exam Mental Status Exam Patient Appearance: Well Grooomed Patient Orientation: Person, Place and Situation Level of Consciousness: Awake and Appropriate Patient Behavior: Cooperative Mood Description: Constricted Affect Description: Constricted Patient Cognition Impaired: Yes Ability to Follow Directions: Good Speech Pattern: Clear Memory Description: Intact Hallucinations: None Delusions: Not Present Thought Process: Intact Thought Content: positive for Circumstantial Depressive Symptoms: Increased Anxiety and Changes in Appetite Judgement: Fair Diagnostics Vital Signs (24Hr): Vital Signs - 24 hr 04/08/21 20:00 04/08/21 20:38 04/08/21 20:39 Temperature 98.6 F Pulse Rate 62 62 62 Respiratory Rate 17 Blood Pressure 115/60 115/60 115/60 Pulse Oximetry 95 04/09/21 05:49 04/09/21 06:31 04/09/21 07:58 Temperature 97.6 F 96.9 F 97.1 F Pulse Rate 58 55 73 Respiratory Rate 18 16 18 Blood Pressure 99/57 L 116/67 119/58 L Pulse Oximetry 95 95 99 04/09/21 08:03 04/09/21 08:08 04/09/21 08:13 Temperature Pulse Rate 55 55 55 Respiratory Rate 17 17 18 Blood Pressure 95/55 L 93/58 L 100/61 Pulse Oximetry 94 93 96 04/09/21 08:28 04/09/21 08:47 04/09/21 10:16 Temperature 97.3 F Pulse Rate 55 55 55 Respiratory Rate 17 18 Blood Pressure 108/62 115/49 L 92/54 L Pulse Oximetry 93 99 Body Mass Index 25.3 Labs Results: 03/16/21 19:42 04/08/21 07:05 Labs: Laboratory Results - last 48 hr 04/07/21 04/08/21 04/08/21 21:21 07:05 09:06 Creatinine 0.85 Estim Creat Clear Calc 62.3 Estimated GFR > 60 POC Glucose 156 H 208 H 04/09/21 05:34 Creatinine Estim Creat Clear Calc Estimated GFR POC Glucose 102 Imaging Radiology Impressions: ITS Impressions Cervical Spine CT 03/16/21 15:12 IMPRESSION: 1. No acute intracranial pathology. 2. No CT evidence of acute cervical spine fracture or traumatic subluxation 3. Irregular 1.5 cm lesion right upper lobe. This is chronic unchanged since CAT scan of December 03, 2019. Elbow X-Ray 03/16/21 15:12 IMPRESSION: Arthritis. No fracture or dislocation seen. EXAMINATION: Right elbow x-ray CLINICAL INFORMATION: Pain post fall COMPARISON: None. TECHNIQUE: 3 views of the right elbow FINDINGS: There is a comminuted displaced fracture of the olecranon. No other fracture is seen. Joint spaces are normal. There is an elbow joint effusion. There is soft tissue swelling over the fracture. IMPRESSION: Comminuted displaced fracture of the olecranon. EXAMINATION: Right shoulder x-ray CLINICAL INFORMATION: Pain post fall COMPARISON: None. TECHNIQUE: 3 views of the right shoulder FINDINGS: Bone alignment is normal. No fracture or dislocation is seen. The glenohumeral joint is normal. There is arthritis at the acromioclavicular joint. Soft tissues are unremarkable. IMPRESSION: Arthritis at the acromioclavicular joint. EXAMINATION: Chest x-ray CLINICAL INFORMATION: Pain post fall COMPARISON: Previous chest x-ray August 2016 TECHNIQUE: One view of the chest FINDINGS: The cardiac silhouette is slightly enlarged. Thoracic aorta is tortuous. The pulmonary tavon appear prominent. There is a new right subclavian dual chamber pacemaker. There is a small dense right upper lobe nodule that appears unchanged. The lungs are otherwise clear. There is no pleural effusion or pneumothorax. There are surgical clips in the left axilla. There are degenerative changes of the spine. IMPRESSION: No evidence for acute disease in the chest. Prominent pulmonary tavon questionable for enlarged pulmonary arteries versus lymphadenopathy. Head CT 03/16/21 15:12 IMPRESSION: 1. No acute intracranial pathology. 2. No CT evidence of acute cervical spine fracture or traumatic subluxation 3. Irregular 1.5 cm lesion right upper lobe. This is chronic unchanged since CAT scan of December 03, 2019. Shoulder X-Ray 03/16/21 15:12 IMPRESSION: Arthritis. No fracture or dislocation seen. EXAMINATION: Right elbow x-ray CLINICAL INFORMATION: Pain post fall COMPARISON: None. TECHNIQUE: 3 views of the right elbow FINDINGS: There is a comminuted displaced fracture of the olecranon. No other fracture is seen. Joint spaces are normal. There is an elbow joint effusion. There is soft tissue swelling over the fracture. IMPRESSION: Comminuted displaced fracture of the olecranon. EXAMINATION: Right shoulder x-ray CLINICAL INFORMATION: Pain post fall COMPARISON: None. TECHNIQUE: 3 views of the right shoulder FINDINGS: Bone alignment is normal. No fracture or dislocation is seen. The glenohumeral joint is normal. There is arthritis at the acromioclavicular joint. Soft tissues are unremarkable. IMPRESSION: Arthritis at the acromioclavicular joint. EXAMINATION: Chest x-ray CLINICAL INFORMATION: Pain post fall COMPARISON: Previous chest x-ray August 2016 TECHNIQUE: One view of the chest FINDINGS: The cardiac silhouette is slightly enlarged. Thoracic aorta is tortuous. The pulmonary tavon appear prominent. There is a new right subclavian dual chamber pacemaker. There is a small dense right upper lobe nodule that appears unchanged. The lungs are otherwise clear. There is no pleural effusion or pneumothorax. There are surgical clips in the left axilla. There are degenerative changes of the spine. IMPRESSION: No evidence for acute disease in the chest. Prominent pulmonary tavon questionable for enlarged pulmonary arteries versus lymphadenopathy. Wrist X-Ray 03/16/21 15:12 IMPRESSION: Arthritis. No fracture or dislocation seen. EXAMINATION: Right elbow x-ray CLINICAL INFORMATION: Pain post fall COMPARISON: None. TECHNIQUE: 3 views of the right elbow FINDINGS: There is a comminuted displaced fracture of the olecranon. No other fracture is seen. Joint spaces are normal. There is an elbow joint effusion. There is soft tissue swelling over the fracture. IMPRESSION: Comminuted displaced fracture of the olecranon. EXAMINATION: Right shoulder x-ray CLINICAL INFORMATION: Pain post fall COMPARISON: None. TECHNIQUE: 3 views of the right shoulder FINDINGS: Bone alignment is normal. No fracture or dislocation is seen. The glenohumeral joint is normal. There is arthritis at the acromioclavicular joint. Soft tissues are unremarkable. IMPRESSION: Arthritis at the acromioclavicular joint. EXAMINATION: Chest x-ray CLINICAL INFORMATION: Pain post fall COMPARISON: Previous chest x-ray August 2016 TECHNIQUE: One view of the chest FINDINGS: The cardiac silhouette is slightly enlarged. Thoracic aorta is tortuous. The pulmonary tavon appear prominent. There is a new right subclavian dual chamber pacemaker. There is a small dense right upper lobe nodule that appears unchanged. The lungs are otherwise clear. There is no pleural effusion or pneumothorax. There are surgical clips in the left axilla. There are degenerative changes of the spine. IMPRESSION: No evidence for acute disease in the chest. Prominent pulmonary tavon questionable for enlarged pulmonary arteries versus lymphadenopathy. Chest X-Ray 03/16/21 15:13 IMPRESSION: Arthritis. No fracture or dislocation seen. EXAMINATION: Right elbow x-ray CLINICAL INFORMATION: Pain post fall COMPARISON: None. TECHNIQUE: 3 views of the right elbow FINDINGS: There is a comminuted displaced fracture of the olecranon. No other fracture is seen. Joint spaces are normal. There is an elbow joint effusion. There is soft tissue swelling over the fracture. IMPRESSION: Comminuted displaced fracture of the olecranon. EXAMINATION: Right shoulder x-ray CLINICAL INFORMATION: Pain post fall COMPARISON: None. TECHNIQUE: 3 views of the right shoulder FINDINGS: Bone alignment is normal. No fracture or dislocation is seen. The glenohumeral joint is normal. There is arthritis at the acromioclavicular joint. Soft tissues are unremarkable. IMPRESSION: Arthritis at the acromioclavicular joint. EXAMINATION: Chest x-ray CLINICAL INFORMATION: Pain post fall COMPARISON: Previous chest x-ray August 2016 TECHNIQUE: One view of the chest FINDINGS: The cardiac silhouette is slightly enlarged. Thoracic aorta is tortuous. The pulmonary tavon appear prominent. There is a new right subclavian dual chamber pacemaker. There is a small dense right upper lobe nodule that appears unchanged. The lungs are otherwise clear. There is no pleural effusion or pneumothorax. There are surgical clips in the left axilla. There are degenerative changes of the spine. IMPRESSION: No evidence for acute disease in the chest. Prominent pulmonary tavon questionable for enlarged pulmonary arteries versus lymphadenopathy. Elbow X-Ray 03/25/21 14:11 IMPRESSION: No change in the comminuted displaced olecranon fracture. Knee X-Ray 04/01/21 11:28 IMPRESSION: Moderate to large joint effusion and degenerative changes. Elbow X-Ray 04/01/21 13:59 IMPRESSION: Comminuted fracture proximal olecranon. Medications Medications Current Medications Acetaminophen (Acetaminophen 325 Mg Tablet) 650 mg PO Q6H PRN PRN Reason: Headache/Pain Mild Scale (1-3) Last Admin: 03/31/21 23:54 Dose: 650 mg Documented by: Acetaminophen (Acetaminophen 325 Mg Tablet) 650 mg PO Q6H PRN PRN Reason: Headache/Pain Mild Scale (1-3) Acetaminophen (Acetaminophen 325 Mg Tablet) 650 mg PO ONCE PRN PRN Reason: Pain, Mild (Pain Scale 1-3) Al Hydroxide/Mg Hydroxide (Magnesium Hydrox/Alum Hydrox 30 Ml Oral.Susp) 30 ml PO Q6H PRN PRN Reason: Heartburn/Nausea Alendronate Sodium (Alendronate Sodium 70 Mg Tablet) 70 mg PO SA [facility] Last Admin: 04/03/21 10:55 Dose: 70 mg Documented by: Amlodipine Besylate (Amlodipine Besylate 2.5 Mg Tablet) 2.5 mg PO BEDTIME [facility]; Protocol Last Admin: 04/08/21 20:38 Dose: 2.5 mg Documented by: Atorvastatin Calcium (Atorvastatin Calcium 80 Mg Tablet) 80 mg PO DAILY [facility] Last Admin: 04/09/21 10:14 Dose: 80 mg Documented by: Bupropion HCl (Bupropion Hcl Xl 150 Mg Tab.Er.24h) 150 mg PO DAILY [facility] Last Admin: 04/09/21 10:17 Dose: 150 mg Documented by: Celecoxib (Celecoxib 200 Mg Capsule) 200 mg PO BID [facility] Last Admin: 04/09/21 10:16 Dose: 200 mg Documented by: Finasteride (Finasteride 5 Mg Tablet) 5 mg PO DAILY [facility] Last Admin: 04/09/21 10:16 Dose: 5 mg Documented by: Hydroxyzine HCl (Hydroxyzine Hcl 25 Mg Tablet) 25 mg PO Q6H PRN PRN Reason: Anxiety Last Admin: 04/03/21 20:15 Dose: 25 mg Documented by: Isosorbide Mononitrate (Isosorbide Mononitrate 60 Mg Tab.Er.24h) 60 mg PO DAILY [facility]; Protocol Last Admin: 04/09/21 10:16 Dose: 60 mg Documented by: Magnesium Hydroxide (Milk Of Magnesia 30 Ml Oral.Susp) 30 ml PO DAILY PRN PRN Reason: Constipation Magnesium Hydroxide (Milk Of Magnesia 30 Ml Oral.Susp) 30 ml PO DAILY PRN PRN Reason: Constipation Melatonin (Melatonin 3 Mg Tablet) 3 mg PO BEDTIME PRN PRN Reason: insomnia Last Admin: 04/08/21 01:54 Dose: 3 mg Documented by: Metformin HCl (Metformin Hcl Er 500 Mg Tab.Er.24h) 500 mg PO DAILY [facility] Last Admin: 04/09/21 10:17 Dose: 500 mg Documented by: Metoprolol Tartrate (Metoprolol Tartrate 12.5 Mg Halftab) 12.5 mg PO BID [facility]; Protocol Last Admin: 04/09/21 11:07 Dose: Not Given Documented by: Patient Own Med ( Alfuzosin Hcl Er 10mg) 1 each PO BEDTIME [facility] Last Admin: 04/08/21 20:40 Dose: 1 each Documented by: Patient Own Med ( (Lumigan 0.01% Soln)) 1 each EYE-BOTH BEDTIME [facility] Last Admin: 04/08/21 20:42 Dose: 1 each Documented by: Olanzapine (Olanzapine 10 Mg Tablet) 10 mg PO BEDTIME [facility] Last Admin: 04/08/21 20:38 Dose: 10 mg Documented by: Omeprazole (Omeprazole 20 Mg Capsule.Dr) 20 mg PO DAILY@0630 [facility] Last Admin: 04/09/21 10:16 Dose: 20 mg Documented by: Ondansetron HCl (Ondansetron Hcl 4 Mg/2 Ml Vial) 4 mg IVPUSH ONCE PRN PRN Reason: Nausea and Vomiting Pharmacy Consult (Consult Rx Perform Med Rec) 1 each MISCELLANE ONCE PRN PRN Reason: Consult order Pharmacy Consult (Consult Rx Perform Med Rec) 1 each MISCELLANE ONCE PRN PRN Reason: Consult order Trazodone HCl (Trazodone Hcl 50 Mg Tablet) 50 mg PO BEDTIME PRN PRN Reason: Insomnia Last Admin: 03/20/21 01:20 Dose: 50 mg Documented by: Allergies Allergies Allergy/AdvReac Type Severity Reaction Status Date / Time metoprolol AdvReac Unknown bradycardia Verified 03/16/21 14:28 timolol AdvReac Unknown low bp Verified 03/16/21 14:28 tamsulosin [From Flomax] AdvReac Diarrhea Verified 03/22/21 13:42 beta blockers AdvReac Hypotension Uncoded 03/22/21 13:46 Assessment & Plan Assessment & Plan (1) Bipolar disorder: Status: Acute Code(s): F31.9 - Bipolar disorder, unspecified Assessment and Plan: 80-year-old male with a history of bipolar disease and dementia, admitted for exacerbation of mixed symptoms elicited by hypomania and severe depression. The patient has improved with Zyprexa 10 mg p.o. q.h.s. to target manic symptoms with for improvement but still dysphoric so we discussed the possibility of starting ECT and he agreed. Plan 1. Continue same medications. 2. ECT for Monday. 3. Family meeting next week I spent minutes with the patient and/or on the patient floor today, greater than?50% of which was spent counseling/coordinating care. Reason for contiued inpatient stay Substantial Risk for: inability to function, rapid decompensation and med/psych decompensation
[2021-04-09] MEDS: lamoTRIgine 25 MG TABLET 50 MG PO (20:53)
[2021-04-09] MEDS: OLANZapine 10 MG TABLET PO (20:54)
[2021-04-09] MEDS: amLODIPine Besylate 2.5 MG TABLET PO (20:54)
[2021-04-09] MEDS: Metoprolol Tartrate 12.5 MG HALFTAB PO (20:55)
[2021-04-09 21:13] LABS: Glucose, Whole Blood 164 mg/dL (60-115)
[2021-04-10 06:00] VITALS: BP 106/59; PULSE 55; TEMP 36.9; O2SAT 94
[2021-04-10] MEDS: Omeprazole 20 MG CAPSULE.DR PO (06:38)
[2021-04-10 09:08] VITALS: BP 106/59; PULSE 55
[2021-04-10] MEDS: Isosorbide Mononitrate 60 MG TAB.ER.24H PO (09:08)
[2021-04-10] MEDS: Celecoxib 200 MG CAPSULE PO ×2 (09:09→20:50)
[2021-04-10] MEDS: metFORMIN HCl ER 500 MG TAB.ER.24H PO (09:09)
[2021-04-10] MEDS: Atorvastatin Calcium 80 MG TABLET PO (09:09)
[2021-04-10] MEDS: lamoTRIgine 25 MG TABLET 50 MG PO ×2 (09:09→20:50)
[2021-04-10] MEDS: buPROPion HCl XL 150 MG TAB.ER.24H PO (09:09)
[2021-04-10] MEDS: Finasteride 5 MG TABLET PO (09:10)
--- NOTE | 2021-04-10 14:00 | P.PNPSI_ITS ---
Subjective Subjective Date of Service: 04/10/21 Reason For Visit: Mood lability Subjective Notes: Conditional Voluntary Interim History: The nursing staff reported the patient has been pleasant and cooperative but still seclusive. Patient reports he feels well after his ECT yesterday. No side effeects.No complaints. Denies SI> On interview, the patient denies new symptoms. Medication Compliance: Yes Review of Systems Review of Systems Denies chest pain Denies shortness of breath Denies nausea vomiting diarrhea Yes all other systems are reviewed and are negative Constitutional: Reports no additional constitutional complaints Eyes: Reports no additional eye complaints Reports system reviewed and no additional complaints, except as documented and Reports Normal hearing present Respiratory: Reports no additional respiratory complaints Gastrointestinal: Reports no additional gastrointestinal complaints Genitourinary: Reports no additional male genitourinary complaints Skin/Breast: Reports system reviewed and no additional complaints, except as docu Reports Normal hearing present, Reports behavioral changes, Reports memory loss and Reports seizure-like activity Psychiatric: Reports as per HPI, Reports behavioral changes, Reports difficulty concentrating and Reports memory loss Endocrine: Reports as per HPI Hematologic/Lymphatic: Reports as per HPI Allergic/Immunologic: Reports as per HPI Mental Status Exam Mental Status Exam Narrative: Narrative:?Patient Appearance:?Well Grooomed Patient Orientation:?Person Level of Consciousness:?Awake Patient Behavior:?Cooperative Mood Description:?Constricted Affect Description:?Constricted Patient Cognition Impaired:?Yes Ability to Follow Directions:?Good Speech Pattern:?Clear Memory Description:?Intact Hallucinations:?None Delusions:?Not Present Thought Process:?Goal Oriented Thought Content:?positive for Circumstantial Judgement:?Fair Patient Appearance: Well Grooomed Patient Orientation: Person, Place and Situation Level of Consciousness: Awake and Appropriate Patient Behavior: Cooperative Mood Description: Constricted Affect Description: Constricted Patient Cognition Impaired: Yes Ability to Follow Directions: Good Speech Pattern: Clear Memory Description: Intact Diagnostics Vital Signs (24Hr): Vital Signs - 24 hr 04/09/21 20:51 04/09/21 20:54 04/09/21 20:55 Temperature 98.5 F Pulse Rate 62 62 62 Respiratory Rate 17 Blood Pressure 105/55 L 105/55 L 105/55 L Pulse Oximetry 96 04/10/21 06:00 04/10/21 09:08 Temperature 98.4 F Pulse Rate 55 55 Respiratory Rate Blood Pressure 106/59 L 106/59 L Pulse Oximetry 94 Body Mass Index 25.3 Labs Results: 03/16/21 19:42 04/08/21 07:05 Labs: Laboratory Results - last 48 hr 04/09/21 04/09/21 05:34 21:02 POC Glucose 102 164 H Imaging Radiology Impressions: ITS Impressions Cervical Spine CT 03/16/21 15:12 IMPRESSION: 1. No acute intracranial pathology. 2. No CT evidence of acute cervical spine fracture or traumatic subluxation 3. Irregular 1.5 cm lesion right upper lobe. This is chronic unchanged since CAT scan of December 03, 2019. Elbow X-Ray 03/16/21 15:12 IMPRESSION: Arthritis. No fracture or dislocation seen. EXAMINATION: Right elbow x-ray CLINICAL INFORMATION: Pain post fall COMPARISON: None. TECHNIQUE: 3 views of the right elbow FINDINGS: There is a comminuted displaced fracture of the olecranon. No other fracture is seen. Joint spaces are normal. There is an elbow joint effusion. There is soft tissue swelling over the fracture. IMPRESSION: Comminuted displaced fracture of the olecranon. EXAMINATION: Right shoulder x-ray CLINICAL INFORMATION: Pain post fall COMPARISON: None. TECHNIQUE: 3 views of the right shoulder FINDINGS: Bone alignment is normal. No fracture or dislocation is seen. The glenohumeral joint is normal. There is arthritis at the acromioclavicular joint. Soft tissues are unremarkable. IMPRESSION: Arthritis at the acromioclavicular joint. EXAMINATION: Chest x-ray CLINICAL INFORMATION: Pain post fall COMPARISON: Previous chest x-ray August 2016 TECHNIQUE: One view of the chest FINDINGS: The cardiac silhouette is slightly enlarged. Thoracic aorta is tortuous. The pulmonary tavon appear prominent. There is a new right subclavian dual chamber pacemaker. There is a small dense right upper lobe nodule that appears unchanged. The lungs are otherwise clear. There is no pleural effusion or pneumothorax. There are surgical clips in the left axilla. There are degenerative changes of the spine. IMPRESSION: No evidence for acute disease in the chest. Prominent pulmonary tavon questionable for enlarged pulmonary arteries versus lymphadenopathy. Head CT 03/16/21 15:12 IMPRESSION: 1. No acute intracranial pathology. 2. No CT evidence of acute cervical spine fracture or traumatic subluxation 3. Irregular 1.5 cm lesion right upper lobe. This is chronic unchanged since CAT scan of December 03, 2019. Shoulder X-Ray 03/16/21 15:12 IMPRESSION: Arthritis. No fracture or dislocation seen. EXAMINATION: Right elbow x-ray CLINICAL INFORMATION: Pain post fall COMPARISON: None. TECHNIQUE: 3 views of the right elbow FINDINGS: There is a comminuted displaced fracture of the olecranon. No other fracture is seen. Joint spaces are normal. There is an elbow joint effusion. There is soft tissue swelling over the fracture. IMPRESSION: Comminuted displaced fracture of the olecranon. EXAMINATION: Right shoulder x-ray CLINICAL INFORMATION: Pain post fall COMPARISON: None. TECHNIQUE: 3 views of the right shoulder FINDINGS: Bone alignment is normal. No fracture or dislocation is seen. The glenohumeral joint is normal. There is arthritis at the acromioclavicular joint. Soft tissues are unremarkable. IMPRESSION: Arthritis at the acromioclavicular joint. EXAMINATION: Chest x-ray CLINICAL INFORMATION: Pain post fall COMPARISON: Previous chest x-ray August 2016 TECHNIQUE: One view of the chest FINDINGS: The cardiac silhouette is slightly enlarged. Thoracic aorta is tortuous. The pulmonary tavon appear prominent. There is a new right subclavian dual chamber pacemaker. There is a small dense right upper lobe nodule that appears unchanged. The lungs are otherwise clear. There is no pleural effusion or pneumothorax. There are surgical clips in the left axilla. There are degenerative changes of the spine. IMPRESSION: No evidence for acute disease in the chest. Prominent pulmonary tavon questionable for enlarged pulmonary arteries versus lymphadenopathy. Wrist X-Ray 03/16/21 15:12 IMPRESSION: Arthritis. No fracture or dislocation seen. EXAMINATION: Right elbow x-ray CLINICAL INFORMATION: Pain post fall COMPARISON: None. TECHNIQUE: 3 views of the right elbow FINDINGS: There is a comminuted displaced fracture of the olecranon. No other fracture is seen. Joint spaces are normal. There is an elbow joint effusion. There is soft tissue swelling over the fracture. IMPRESSION: Comminuted displaced fracture of the olecranon. EXAMINATION: Right shoulder x-ray CLINICAL INFORMATION: Pain post fall COMPARISON: None. TECHNIQUE: 3 views of the right shoulder FINDINGS: Bone alignment is normal. No fracture or dislocation is seen. The glenohumeral joint is normal. There is arthritis at the acromioclavicular joint. Soft tissues are unremarkable. IMPRESSION: Arthritis at the acromioclavicular joint. EXAMINATION: Chest x-ray CLINICAL INFORMATION: Pain post fall COMPARISON: Previous chest x-ray August 2016 TECHNIQUE: One view of the chest FINDINGS: The cardiac silhouette is slightly enlarged. Thoracic aorta is tortuous. The pulmonary tavon appear prominent. There is a new right subclavian dual chamber pacemaker. There is a small dense right upper lobe nodule that appears unchanged. The lungs are otherwise clear. There is no pleural effusion or pneumothorax. There are surgical clips in the left axilla. There are degenerative changes of the spine. IMPRESSION: No evidence for acute disease in the chest. Prominent pulmonary tavon questionable for enlarged pulmonary arteries versus lymphadenopathy. Chest X-Ray 03/16/21 15:13 IMPRESSION: Arthritis. No fracture or dislocation seen. EXAMINATION: Right elbow x-ray CLINICAL INFORMATION: Pain post fall COMPARISON: None. TECHNIQUE: 3 views of the right elbow FINDINGS: There is a comminuted displaced fracture of the olecranon. No other fracture is seen. Joint spaces are normal. There is an elbow joint effusion. There is soft tissue swelling over the fracture. IMPRESSION: Comminuted displaced fracture of the olecranon. EXAMINATION: Right shoulder x-ray CLINICAL INFORMATION: Pain post fall COMPARISON: None. TECHNIQUE: 3 views of the right shoulder FINDINGS: Bone alignment is normal. No fracture or dislocation is seen. The glenohumeral joint is normal. There is arthritis at the acromioclavicular joint. Soft tissues are unremarkable. IMPRESSION: Arthritis at the acromioclavicular joint. EXAMINATION: Chest x-ray CLINICAL INFORMATION: Pain post fall COMPARISON: Previous chest x-ray August 2016 TECHNIQUE: One view of the chest FINDINGS: The cardiac silhouette is slightly enlarged. Thoracic aorta is tortuous. The pulmonary tavon appear prominent. There is a new right subclavian dual chamber pacemaker. There is a small dense right upper lobe nodule that appears unchanged. The lungs are otherwise clear. There is no pleural effusion or pneumothorax. There are surgical clips in the left axilla. There are degenerative changes of the spine. IMPRESSION: No evidence for acute disease in the chest. Prominent pulmonary tavon questionable for enlarged pulmonary arteries versus lymphadenopathy. Elbow X-Ray 03/25/21 14:11 IMPRESSION: No change in the comminuted displaced olecranon fracture. Knee X-Ray 04/01/21 11:28 IMPRESSION: Moderate to large joint effusion and degenerative changes. Elbow X-Ray 04/01/21 13:59 IMPRESSION: Comminuted fracture proximal olecranon. Medications Medications Current Medications Acetaminophen (Acetaminophen 325 Mg Tablet) 650 mg PO Q6H PRN PRN Reason: Headache/Pain Mild Scale (1-3) Last Admin: 03/31/21 23:54 Dose: 650 mg Documented by: Acetaminophen (Acetaminophen 325 Mg Tablet) 650 mg PO Q6H PRN PRN Reason: Headache/Pain Mild Scale (1-3) Acetaminophen (Acetaminophen 325 Mg Tablet) 650 mg PO ONCE PRN PRN Reason: Pain, Mild (Pain Scale 1-3) Al Hydroxide/Mg Hydroxide (Magnesium Hydrox/Alum Hydrox 30 Ml Oral.Susp) 30 ml PO Q6H PRN PRN Reason: Heartburn/Nausea Alendronate Sodium (Alendronate Sodium 70 Mg Tablet) 70 mg PO SA [facility] Last Admin: 04/10/21 09:10 Dose: 70 mg Documented by: Amlodipine Besylate (Amlodipine Besylate 2.5 Mg Tablet) 2.5 mg PO BEDTIME [facility]; Protocol Last Admin: 04/09/21 20:54 Dose: 2.5 mg Documented by: Atorvastatin Calcium (Atorvastatin Calcium 80 Mg Tablet) 80 mg PO DAILY [facility] Last Admin: 04/10/21 09:09 Dose: 80 mg Documented by: Bupropion HCl (Bupropion Hcl Xl 150 Mg Tab.Er.24h) 150 mg PO DAILY [facility] Last Admin: 04/10/21 09:09 Dose: 150 mg Documented by: Celecoxib (Celecoxib 200 Mg Capsule) 200 mg PO BID [facility] Last Admin: 04/10/21 09:09 Dose: 200 mg Documented by: Finasteride (Finasteride 5 Mg Tablet) 5 mg PO DAILY [facility] Last Admin: 04/10/21 09:10 Dose: 5 mg Documented by: Hydroxyzine HCl (Hydroxyzine Hcl 25 Mg Tablet) 25 mg PO Q6H PRN PRN Reason: Anxiety Last Admin: 04/03/21 20:15 Dose: 25 mg Documented by: Isosorbide Mononitrate (Isosorbide Mononitrate 60 Mg Tab.Er.24h) 60 mg PO DAILY [facility]; Protocol Last Admin: 04/10/21 09:08 Dose: 60 mg Documented by: Lamotrigine (Lamotrigine 25 Mg Tablet) 50 mg PO BID [facility] Stop: 04/11/21 10:00 Last Admin: 04/10/21 09:09 Dose: 50 mg Documented by: Magnesium Hydroxide (Milk Of Magnesia 30 Ml Oral.Susp) 30 ml PO DAILY PRN PRN Reason: Constipation Magnesium Hydroxide (Milk Of Magnesia 30 Ml Oral.Susp) 30 ml PO DAILY PRN PRN Reason: Constipation Melatonin (Melatonin 3 Mg Tablet) 3 mg PO BEDTIME PRN PRN Reason: insomnia Last Admin: 04/08/21 01:54 Dose: 3 mg Documented by: Metformin HCl (Metformin Hcl Er 500 Mg Tab.Er.24h) 500 mg PO DAILY [facility] Last Admin: 04/10/21 09:09 Dose: 500 mg Documented by: Metoprolol Tartrate (Metoprolol Tartrate 12.5 Mg Halftab) 12.5 mg PO BID [facility]; Protocol Last Admin: 04/10/21 11:08 Dose: Not Given Documented by: Patient Own Med ( Alfuzosin Hcl Er 10mg) 1 each PO BEDTIME [facility] Last Admin: 04/09/21 20:54 Dose: 1 each Documented by: Patient Own Med ( (Lumigan 0.01% Soln)) 1 each EYE-BOTH BEDTIME [facility] Last Admin: 04/09/21 20:54 Dose: 1 each Documented by: Olanzapine (Olanzapine 10 Mg Tablet) 10 mg PO BEDTIME [facility] Last Admin: 04/09/21 20:54 Dose: 10 mg Documented by: Omeprazole (Omeprazole 20 Mg Capsule.Dr) 20 mg PO DAILY@0630 [facility] Last Admin: 04/10/21 06:38 Dose: 20 mg Documented by: Ondansetron HCl (Ondansetron Hcl 4 Mg/2 Ml Vial) 4 mg IVPUSH ONCE PRN PRN Reason: Nausea and Vomiting Pharmacy Consult (Consult Rx Perform Med Rec) 1 each MISCELLANE ONCE PRN PRN Reason: Consult order Pharmacy Consult (Consult Rx Perform Med Rec) 1 each MISCELLANE ONCE PRN PRN Reason: Consult order Trazodone HCl (Trazodone Hcl 50 Mg Tablet) 50 mg PO BEDTIME PRN PRN Reason: Insomnia Last Admin: 03/20/21 01:20 Dose: 50 mg Documented by: Allergies Allergies Allergy/AdvReac Type Severity Reaction Status Date / Time metoprolol AdvReac Unknown bradycardia Verified 03/16/21 14:28 timolol AdvReac Unknown low bp Verified 03/16/21 14:28 tamsulosin [From Flomax] AdvReac Diarrhea Verified 03/22/21 13:42 beta blockers AdvReac Hypotension Uncoded 03/22/21 13:46 Assessment & Plan Assessment & Plan (1) Bipolar disorder: Status: Acute Code(s): F31.9 - Bipolar disorder, unspecified Assessment and Plan: 80-year-old male with a history of bipolar disease and dementia, admitted for exacerbation of mixed symptoms elicited by hypomania and severe depression. Plan 1. Continue same medications. 2. ECT per primary team. 3. Family meeting next week I spent minutes with the patient and/or on the patient floor today, greater than?50% of which was spent counseling/coordinating care. Reason for contiued inpatient stay Substantial Risk for: inability to function and rapid decompensation
[2021-04-10 20:49] VITALS: BP 115/67; PULSE 55
[2021-04-10] MEDS: amLODIPine Besylate 2.5 MG TABLET PO (20:49)
[2021-04-10] MEDS: OLANZapine 10 MG TABLET PO (20:50)
[2021-04-10 20:51] VITALS: BP 115/67; PULSE 55
[2021-04-10 21:08] VITALS: BP 115/67; PULSE 55; TEMP 36.6; O2SAT 94
[2021-04-11] MEDS: Omeprazole 20 MG CAPSULE.DR PO (06:31)
[2021-04-11] MEDS: Finasteride 5 MG TABLET PO (07:55)
[2021-04-11] MEDS: Atorvastatin Calcium 80 MG TABLET PO (07:56)
[2021-04-11] MEDS: buPROPion HCl XL 150 MG TAB.ER.24H PO (07:56)
[2021-04-11 07:57] VITALS: BP 101/56; PULSE 58
[2021-04-11] MEDS: Metoprolol Tartrate 12.5 MG HALFTAB PO ×2 (07:57→20:38)
[2021-04-11] MEDS: metFORMIN HCl ER 500 MG TAB.ER.24H PO (07:57)
[2021-04-11] MEDS: Celecoxib 200 MG CAPSULE PO ×2 (07:57→20:39)
[2021-04-11 07:58] VITALS: BP 101/56; PULSE 58
[2021-04-11] MEDS: Isosorbide Mononitrate 60 MG TAB.ER.24H PO (07:58)
[2021-04-11] MEDS: lamoTRIgine 25 MG TABLET 50 MG PO (08:00)
[2021-04-11 08:54] VITALS: BP 101/56; PULSE 58; RESP 14; TEMP 36.3; O2SAT 95
--- NOTE | 2021-04-11 20:00 | HO.PSYCHPN ---
Subjective Subjective Date of Service: 04/11/21 Reason For Visit: Mood lability Interim History: Patient seen in the day room. He reports he is feeling well. He denies SI/HI. Future oriented and aware of tomorrow's ECT tx. The nursing staff reported the patient has been pleasant and cooperative. On interview, the patient denies new symptoms. Review of Systems Review of Systems Denies chest pain Denies shortness of breath Denies nausea vomiting diarrhea Yes all other systems are reviewed and are negative Constitutional: Reports no additional constitutional complaints Eyes: Reports no additional eye complaints Reports system reviewed and no additional complaints, except as documented and Reports Normal hearing present Respiratory: Reports no additional respiratory complaints Gastrointestinal: Reports no additional gastrointestinal complaints Genitourinary: Reports no additional male genitourinary complaints Skin/Breast: Reports system reviewed and no additional complaints, except as docu Reports Normal hearing present, Reports behavioral changes, Reports memory loss and Reports seizure-like activity Psychiatric: Reports as per HPI, Reports behavioral changes, Reports difficulty concentrating and Reports memory loss Endocrine: Reports as per HPI Hematologic/Lymphatic: Reports as per HPI Allergic/Immunologic: Reports as per HPI Mental Status Exam Mental Status Exam Narrative: Narrative:?Patient Appearance:?Well Grooomed Patient Orientation:?Person Level of Consciousness:?Awake Patient Behavior:?Cooperative Mood Description:?Constricted Affect Description:?Constricted Patient Cognition Impaired:?Yes Ability to Follow Directions:?Good Speech Pattern:?Clear Memory Description:?Intact Hallucinations:?None Delusions:?Not Present Thought Process:?Goal Oriented Thought Content:?positive for Circumstantial Judgement:?Fair Patient Appearance: Well Grooomed Patient Orientation: Person, Place and Situation Level of Consciousness: Awake and Appropriate Patient Behavior: Cooperative Mood Description: Constricted Affect Description: Constricted Patient Cognition Impaired: Yes Ability to Follow Directions: Good Speech Pattern: Clear Memory Description: Intact Diagnostics Vital Signs (24Hr): Vital Signs - 24 hr 04/10/21 20:49 04/10/21 20:51 04/10/21 21:08 Temperature 98 F Pulse Rate 55 55 55 Respiratory Rate Blood Pressure 115/67 115/67 115/67 Pulse Oximetry 94 04/11/21 07:57 04/11/21 07:58 04/11/21 08:54 Temperature 97.4 F Pulse Rate 58 58 58 Respiratory Rate 14 Blood Pressure 101/56 L 101/56 L 101/56 L Pulse Oximetry 95 Body Mass Index 25.3 Labs Results: 03/16/21 19:42 04/08/21 07:05 Labs: Laboratory Results - last 48 hr 04/09/21 21:02 POC Glucose 164 H Imaging Radiology Impressions: ITS Impressions Cervical Spine CT 03/16/21 15:12 IMPRESSION: 1. No acute intracranial pathology. 2. No CT evidence of acute cervical spine fracture or traumatic subluxation 3. Irregular 1.5 cm lesion right upper lobe. This is chronic unchanged since CAT scan of December 03, 2019. Elbow X-Ray 03/16/21 15:12 IMPRESSION: Arthritis. No fracture or dislocation seen. EXAMINATION: Right elbow x-ray CLINICAL INFORMATION: Pain post fall COMPARISON: None. TECHNIQUE: 3 views of the right elbow FINDINGS: There is a comminuted displaced fracture of the olecranon. No other fracture is seen. Joint spaces are normal. There is an elbow joint effusion. There is soft tissue swelling over the fracture. IMPRESSION: Comminuted displaced fracture of the olecranon. EXAMINATION: Right shoulder x-ray CLINICAL INFORMATION: Pain post fall COMPARISON: None. TECHNIQUE: 3 views of the right shoulder FINDINGS: Bone alignment is normal. No fracture or dislocation is seen. The glenohumeral joint is normal. There is arthritis at the acromioclavicular joint. Soft tissues are unremarkable. IMPRESSION: Arthritis at the acromioclavicular joint. EXAMINATION: Chest x-ray CLINICAL INFORMATION: Pain post fall COMPARISON: Previous chest x-ray August 2016 TECHNIQUE: One view of the chest FINDINGS: The cardiac silhouette is slightly enlarged. Thoracic aorta is tortuous. The pulmonary tavon appear prominent. There is a new right subclavian dual chamber pacemaker. There is a small dense right upper lobe nodule that appears unchanged. The lungs are otherwise clear. There is no pleural effusion or pneumothorax. There are surgical clips in the left axilla. There are degenerative changes of the spine. IMPRESSION: No evidence for acute disease in the chest. Prominent pulmonary tavon questionable for enlarged pulmonary arteries versus lymphadenopathy. Head CT 03/16/21 15:12 IMPRESSION: 1. No acute intracranial pathology. 2. No CT evidence of acute cervical spine fracture or traumatic subluxation 3. Irregular 1.5 cm lesion right upper lobe. This is chronic unchanged since CAT scan of December 03, 2019. Shoulder X-Ray 03/16/21 15:12 IMPRESSION: Arthritis. No fracture or dislocation seen. EXAMINATION: Right elbow x-ray CLINICAL INFORMATION: Pain post fall COMPARISON: None. TECHNIQUE: 3 views of the right elbow FINDINGS: There is a comminuted displaced fracture of the olecranon. No other fracture is seen. Joint spaces are normal. There is an elbow joint effusion. There is soft tissue swelling over the fracture. IMPRESSION: Comminuted displaced fracture of the olecranon. EXAMINATION: Right shoulder x-ray CLINICAL INFORMATION: Pain post fall COMPARISON: None. TECHNIQUE: 3 views of the right shoulder FINDINGS: Bone alignment is normal. No fracture or dislocation is seen. The glenohumeral joint is normal. There is arthritis at the acromioclavicular joint. Soft tissues are unremarkable. IMPRESSION: Arthritis at the acromioclavicular joint. EXAMINATION: Chest x-ray CLINICAL INFORMATION: Pain post fall COMPARISON: Previous chest x-ray August 2016 TECHNIQUE: One view of the chest FINDINGS: The cardiac silhouette is slightly enlarged. Thoracic aorta is tortuous. The pulmonary tavon appear prominent. There is a new right subclavian dual chamber pacemaker. There is a small dense right upper lobe nodule that appears unchanged. The lungs are otherwise clear. There is no pleural effusion or pneumothorax. There are surgical clips in the left axilla. There are degenerative changes of the spine. IMPRESSION: No evidence for acute disease in the chest. Prominent pulmonary tavon questionable for enlarged pulmonary arteries versus lymphadenopathy. Wrist X-Ray 03/16/21 15:12 IMPRESSION: Arthritis. No fracture or dislocation seen. EXAMINATION: Right elbow x-ray CLINICAL INFORMATION: Pain post fall COMPARISON: None. TECHNIQUE: 3 views of the right elbow FINDINGS: There is a comminuted displaced fracture of the olecranon. No other fracture is seen. Joint spaces are normal. There is an elbow joint effusion. There is soft tissue swelling over the fracture. IMPRESSION: Comminuted displaced fracture of the olecranon. EXAMINATION: Right shoulder x-ray CLINICAL INFORMATION: Pain post fall COMPARISON: None. TECHNIQUE: 3 views of the right shoulder FINDINGS: Bone alignment is normal. No fracture or dislocation is seen. The glenohumeral joint is normal. There is arthritis at the acromioclavicular joint. Soft tissues are unremarkable. IMPRESSION: Arthritis at the acromioclavicular joint. EXAMINATION: Chest x-ray CLINICAL INFORMATION: Pain post fall COMPARISON: Previous chest x-ray August 2016 TECHNIQUE: One view of the chest FINDINGS: The cardiac silhouette is slightly enlarged. Thoracic aorta is tortuous. The pulmonary tavon appear prominent. There is a new right subclavian dual chamber pacemaker. There is a small dense right upper lobe nodule that appears unchanged. The lungs are otherwise clear. There is no pleural effusion or pneumothorax. There are surgical clips in the left axilla. There are degenerative changes of the spine. IMPRESSION: No evidence for acute disease in the chest. Prominent pulmonary tavon questionable for enlarged pulmonary arteries versus lymphadenopathy. Chest X-Ray 03/16/21 15:13 IMPRESSION: Arthritis. No fracture or dislocation seen. EXAMINATION: Right elbow x-ray CLINICAL INFORMATION: Pain post fall COMPARISON: None. TECHNIQUE: 3 views of the right elbow FINDINGS: There is a comminuted displaced fracture of the olecranon. No other fracture is seen. Joint spaces are normal. There is an elbow joint effusion. There is soft tissue swelling over the fracture. IMPRESSION: Comminuted displaced fracture of the olecranon. EXAMINATION: Right shoulder x-ray CLINICAL INFORMATION: Pain post fall COMPARISON: None. TECHNIQUE: 3 views of the right shoulder FINDINGS: Bone alignment is normal. No fracture or dislocation is seen. The glenohumeral joint is normal. There is arthritis at the acromioclavicular joint. Soft tissues are unremarkable. IMPRESSION: Arthritis at the acromioclavicular joint. EXAMINATION: Chest x-ray CLINICAL INFORMATION: Pain post fall COMPARISON: Previous chest x-ray August 2016 TECHNIQUE: One view of the chest FINDINGS: The cardiac silhouette is slightly enlarged. Thoracic aorta is tortuous. The pulmonary tavon appear prominent. There is a new right subclavian dual chamber pacemaker. There is a small dense right upper lobe nodule that appears unchanged. The lungs are otherwise clear. There is no pleural effusion or pneumothorax. There are surgical clips in the left axilla. There are degenerative changes of the spine. IMPRESSION: No evidence for acute disease in the chest. Prominent pulmonary tavon questionable for enlarged pulmonary arteries versus lymphadenopathy. Elbow X-Ray 03/25/21 14:11 IMPRESSION: No change in the comminuted displaced olecranon fracture. Knee X-Ray 04/01/21 11:28 IMPRESSION: Moderate to large joint effusion and degenerative changes. Elbow X-Ray 04/01/21 13:59 IMPRESSION: Comminuted fracture proximal olecranon. Medications Medications Current Medications Acetaminophen (Acetaminophen 325 Mg Tablet) 650 mg PO Q6H PRN PRN Reason: Headache/Pain Mild Scale (1-3) Last Admin: 03/31/21 23:54 Dose: 650 mg Documented by: Acetaminophen (Acetaminophen 325 Mg Tablet) 650 mg PO Q6H PRN PRN Reason: Headache/Pain Mild Scale (1-3) Acetaminophen (Acetaminophen 325 Mg Tablet) 650 mg PO ONCE PRN PRN Reason: Pain, Mild (Pain Scale 1-3) Al Hydroxide/Mg Hydroxide (Magnesium Hydrox/Alum Hydrox 30 Ml Oral.Susp) 30 ml PO Q6H PRN PRN Reason: Heartburn/Nausea Alendronate Sodium (Alendronate Sodium 70 Mg Tablet) 70 mg PO SA [facility] [place] Last Admin: 04/10/21 09:10 Dose: 70 mg Documented by: Amlodipine Besylate (Amlodipine Besylate 2.5 Mg Tablet) 2.5 mg PO BEDTIME [facility] [place]; Protocol Last Admin: 04/10/21 20:49 Dose: 2.5 mg Documented by: Atorvastatin Calcium (Atorvastatin Calcium 80 Mg Tablet) 80 mg PO DAILY [facility] [place] Last Admin: 04/11/21 07:56 Dose: 80 mg Documented by: Bupropion HCl (Bupropion Hcl Xl 150 Mg Tab.Er.24h) 150 mg PO DAILY [facility] [place] Last Admin: 04/11/21 07:56 Dose: 150 mg Documented by: Celecoxib (Celecoxib 200 Mg Capsule) 200 mg PO BID [facility] [place] Last Admin: 04/11/21 07:57 Dose: 200 mg Documented by: Finasteride (Finasteride 5 Mg Tablet) 5 mg PO DAILY [facility] [place] Last Admin: 04/11/21 07:55 Dose: 5 mg Documented by: Hydroxyzine HCl (Hydroxyzine Hcl 25 Mg Tablet) 25 mg PO Q6H PRN PRN Reason: Anxiety Last Admin: 04/03/21 20:15 Dose: 25 mg Documented by: Isosorbide Mononitrate (Isosorbide Mononitrate 60 Mg Tab.Er.24h) 60 mg PO DAILY [facility] [place]; Protocol Last Admin: 04/11/21 07:58 Dose: 60 mg Documented by: Magnesium Hydroxide (Milk Of Magnesia 30 Ml Oral.Susp) 30 ml PO DAILY PRN PRN Reason: Constipation Magnesium Hydroxide (Milk Of Magnesia 30 Ml Oral.Susp) 30 ml PO DAILY PRN PRN Reason: Constipation Melatonin (Melatonin 3 Mg Tablet) 3 mg PO BEDTIME PRN PRN Reason: insomnia Last Admin: 04/08/21 01:54 Dose: 3 mg Documented by: Metformin HCl (Metformin Hcl Er 500 Mg Tab.Er.24h) 500 mg PO DAILY [facility] [place] Last Admin: 04/11/21 07:57 Dose: 500 mg Documented by: Metoprolol Tartrate (Metoprolol Tartrate 12.5 Mg Halftab) 12.5 mg PO BID [facility] [place]; Protocol Last Admin: 04/11/21 07:57 Dose: 12.5 mg Documented by: Patient Own Med ( Alfuzosin Hcl Er 10mg) 1 each PO BEDTIME [facility] [place] Last Admin: 04/10/21 20:50 Dose: 1 each Documented by: Patient Own Med ( (Lumigan 0.01% Soln)) 1 each EYE-BOTH BEDTIME [facility] [place] Last Admin: 04/10/21 20:50 Dose: 1 each Documented by: Olanzapine (Olanzapine 10 Mg Tablet) 10 mg PO BEDTIME [facility] Last Admin: 04/10/21 20:50 Dose: 10 mg Documented by: Omeprazole (Omeprazole 20 Mg Capsule.Dr) 20 mg PO DAILY@0630 [facility] [place] Last Admin: 04/11/21 06:31 Dose: 20 mg Documented by: Ondansetron HCl (Ondansetron Hcl 4 Mg/2 Ml Vial) 4 mg IVPUSH ONCE PRN PRN Reason: Nausea and Vomiting Pharmacy Consult (Consult Rx Perform Med Rec) 1 each MISCELLANE ONCE PRN PRN Reason: Consult order Pharmacy Consult (Consult Rx Perform Med Rec) 1 each MISCELLANE ONCE PRN PRN Reason: Consult order Trazodone HCl (Trazodone Hcl 50 Mg Tablet) 50 mg PO BEDTIME PRN PRN Reason: Insomnia Last Admin: 03/20/21 01:20 Dose: 50 mg Documented by: Allergies Allergies Allergy/AdvReac Type Severity Reaction Status Date / Time metoprolol AdvReac Unknown bradycardia Verified 03/16/21 14:28 timolol AdvReac Unknown low bp Verified 03/16/21 14:28 tamsulosin [From Flomax] AdvReac Diarrhea Verified 03/22/21 13:42 beta blockers AdvReac Hypotension Uncoded 03/22/21 13:46 Assessment & Plan Assessment & Plan (1) Bipolar disorder: Status: Acute Code(s): F31.9 - Bipolar disorder, unspecified Assessment and Plan: 80-year-old male with a history of bipolar disease and dementia, admitted for exacerbation of mixed symptoms elicited by hypomania and severe depression. Plan 1. Continue same medications. 2. ECT per primary team. 3. Family meeting next week I spent minutes with the patient and/or on the patient floor today, greater than?50% of which was spent counseling/coordinating care. Reason for contiued inpatient stay Substantial Risk for: harm to self and inability to function
[2021-04-11 20:38] VITALS: BP 103/58; PULSE 55
[2021-04-11 20:39] VITALS: BP 103/58; PULSE 55
[2021-04-11] MEDS: OLANZapine 10 MG TABLET PO (20:39)
[2021-04-11] MEDS: amLODIPine Besylate 2.5 MG TABLET PO (20:39)
[2021-04-11 21:01] VITALS: BP 103/58; PULSE 55; RESP 17; TEMP 36.3; O2SAT 95
[2021-04-11 21:20] LABS: Glucose, Whole Blood 143 mg/dL (60-115)
[2021-04-12] VITALS (12 sets, daily range): BP systolic 108–163; BP diastolic 58–78; PULSE 55; RESP 16–18; TEMP 35.8–37; O2SAT 95–97; BMI 25.0
[2021-04-12] MEDS: Omeprazole 20 MG CAPSULE.DR PO (06:04)
[2021-04-12 06:39] LABS: Glucose, Whole Blood 117 mg/dL (60-115)
--- NOTE | 2021-04-12 06:49 | MHC.SHP ---
Pre-Procedural Eval Section A Date of Service: 04/12/21 The patient is an INPATIENT: Yes Changes since office visit: No Cold of Flu in the past 2 weeks, No New Medical Problems, No Changes in Medication and No Patient answered all questions The History & Physical has been completed within 30 days and I have reviewed it.: Yes Section B Chief Complaint: Mood lability Allergies: Allergies Allergy/AdvReac Type Severity Reaction Status Date / Time metoprolol AdvReac Unknown bradycardia Verified 03/16/21 14:28 timolol AdvReac Unknown low bp Verified 03/16/21 14:28 tamsulosin [From Flomax] AdvReac Diarrhea Verified 03/22/21 13:42 beta blockers AdvReac Hypotension Uncoded 03/22/21 13:46 Plan I have reviewed the history and physical and performed a pertinent physical examination on my patient. No changes have occurred unless specified.
--- NOTE | 2021-04-12 06:49 | HO.ECTPROC ---
ECT Procedure Note Diagnosis/Treatment Date of Service: 04/12/21 Diagnosis: Bipolar disorder Previous ECT Date: 04/09/21 Current Treatment Number: 2 Treatment: Series Interval Clinical Notes: The patient reported less dysphoria. No side effects with previous ECT. ECT Settings Device: THYMATRON DGx Electrode Placement: Right Unilateral Program/Pulse Width: 0.25 Energy Percent: 15 Seizure Duration By EEG (in seconds): 21 By Motor Observation (in seconds): 21 Medications Administration General Anesthetic: Etomidate (14) Muscle Relaxant: Succinylcholine (100) Ancillary Medications Analgesics: Torodol - Pre ECT Anti-emetics: Zofran - Pre ECT Miscillaneous Medications: Propofol (30) Airway Management Airway Management: Bag Mask Ventilation Treatment Recommendations No Changes Recommended: No change Pt Tolerated Procedure w/o Issue: Yes
--- NOTE | 2021-04-12 06:51 | P.CONAN_ITS ---
[facility] Active Problems Active Problems: All Active Problems (Updated 03/17/21 @ 17:33 by Desiree canas) Bipolar disorder (Acute) Acute confusion (Acute) Elbow fracture, right (Acute) Major depression (Acute) Acute alteration in mental status (Acute) Chest pressure (Acute) CAD (coronary artery disease) (Acute) Cardiac pacemaker in situ (Acute) HTN (hypertension) (Acute) Diabetes (Acute) Hyperlipidemia (Acute) Past Medical History Medical History CAD (coronary artery disease) Cardiac pacemaker in situ Diabetes History of left breast cancer HTN (hypertension) Hyperlipidemia Sick sinus syndrome Family History Family History Father CVD (cardiovascular disease) Mother CVD (cardiovascular disease) Brother CVD (cardiovascular disease) Sister Diabetes Son Diabetes Family history of problems with anesthesia: No Surgical History Surgical History History of permanent cardiac pacemaker placement Hx of CABG Hx of cataract surgery Hx of mastectomy History of Problems with Anesthesia: No Social History Social History Household Members: Spouse Housing: House Do you presently have visiting nurse or other home services: No Alcohol intake: never Patient Tobacco Use Status: Former Tobacco user Tobacco use type: Cigarette Advance Directives Date on File: 03/17/21 service: No Sexual orientation: Straight/Heterosexual Meds Allergies Allergy/AdvReac Type Severity Reaction Status Date / Time metoprolol AdvReac Unknown bradycardia Verified 03/16/21 14:28 timolol AdvReac Unknown low bp Verified 03/16/21 14:28 tamsulosin [From Flomax] AdvReac Diarrhea Verified 03/22/21 13:42 beta blockers AdvReac Hypotension Uncoded 03/22/21 13:46 Active Medications: Current Medications Acetaminophen (Acetaminophen 325 Mg Tablet) 650 mg PO Q6H PRN PRN Reason: Headache/Pain Mild Scale (1-3) Last Admin: 03/31/21 23:54 Dose: 650 mg Documented by: Acetaminophen (Acetaminophen 325 Mg Tablet) 650 mg PO Q6H PRN PRN Reason: Headache/Pain Mild Scale (1-3) Acetaminophen (Acetaminophen 325 Mg Tablet) 650 mg PO ONCE PRN PRN Reason: Pain, Mild (Pain Scale 1-3) Al Hydroxide/Mg Hydroxide (Magnesium Hydrox/Alum Hydrox 30 Ml Oral.Susp) 30 ml PO Q6H PRN PRN Reason: Heartburn/Nausea Alendronate Sodium (Alendronate Sodium 70 Mg Tablet) 70 mg PO SA [facility] Last Admin: 04/10/21 09:10 Dose: 70 mg Documented by: Amlodipine Besylate (Amlodipine Besylate 2.5 Mg Tablet) 2.5 mg PO BEDTIME [facility]; Protocol Last Admin: 04/11/21 20:39 Dose: 2.5 mg Documented by: Atorvastatin Calcium (Atorvastatin Calcium 80 Mg Tablet) 80 mg PO DAILY [facility] Last Admin: 04/11/21 07:56 Dose: 80 mg Documented by: Bupropion HCl (Bupropion Hcl Xl 150 Mg Tab.Er.24h) 150 mg PO DAILY [facility] Last Admin: 04/11/21 07:56 Dose: 150 mg Documented by: Celecoxib (Celecoxib 200 Mg Capsule) 200 mg PO BID [facility] Last Admin: 04/11/21 20:39 Dose: 200 mg Documented by: Finasteride (Finasteride 5 Mg Tablet) 5 mg PO DAILY [facility] Last Admin: 04/11/21 07:55 Dose: 5 mg Documented by: Hydroxyzine HCl (Hydroxyzine Hcl 25 Mg Tablet) 25 mg PO Q6H PRN PRN Reason: Anxiety Last Admin: 04/03/21 20:15 Dose: 25 mg Documented by: Isosorbide Mononitrate (Isosorbide Mononitrate 60 Mg Tab.Er.24h) 60 mg PO DAILY [facility]; Protocol Last Admin: 04/11/21 07:58 Dose: 60 mg Documented by: Magnesium Hydroxide (Milk Of Magnesia 30 Ml Oral.Susp) 30 ml PO DAILY PRN PRN Reason: Constipation Magnesium Hydroxide (Milk Of Magnesia 30 Ml Oral.Susp) 30 ml PO DAILY PRN PRN Reason: Constipation Melatonin (Melatonin 3 Mg Tablet) 3 mg PO BEDTIME PRN PRN Reason: insomnia Last Admin: 04/08/21 01:54 Dose: 3 mg Documented by: Metformin HCl (Metformin Hcl Er 500 Mg Tab.Er.24h) 500 mg PO DAILY [facility] Last Admin: 04/11/21 07:57 Dose: 500 mg Documented by: Metoprolol Tartrate (Metoprolol Tartrate 12.5 Mg Halftab) 12.5 mg PO BID TEDDY; Protocol Last Admin: 04/11/21 20:38 Dose: 12.5 mg Documented by: Patient Own Med ( Alfuzosin Hcl Er 10mg) 1 each PO BEDTIME TEDDY Last Admin: 04/11/21 20:39 Dose: 1 each Documented by: Patient Own Med ( (Lumigan 0.01% Soln)) 1 each EYE-BOTH BEDTIME [facility] Last Admin: 04/11/21 20:39 Dose: 1 each Documented by: Olanzapine (Olanzapine 10 Mg Tablet) 10 mg PO BEDTIME TEDDY Last Admin: 04/11/21 20:39 Dose: 10 mg Documented by: Omeprazole (Omeprazole 20 Mg Capsule.Dr) 20 mg PO DAILY@0630 [facility] Last Admin: 04/12/21 06:04 Dose: 20 mg Documented by: Ondansetron HCl (Ondansetron Hcl 4 Mg/2 Ml Vial) 4 mg IVPUSH ONCE PRN PRN Reason: Nausea and Vomiting Pharmacy Consult (Consult Rx Perform Med Rec) 1 each MISCELLANE ONCE PRN PRN Reason: Consult order Pharmacy Consult (Consult Rx Perform Med Rec) 1 each MISCELLANE ONCE PRN PRN Reason: Consult order Trazodone HCl (Trazodone Hcl 50 Mg Tablet) 50 mg PO BEDTIME PRN PRN Reason: Insomnia Last Admin: 03/20/21 01:20 Dose: 50 mg Documented by: Home Medications Medication Instructions Recorded Confirmed Last Taken Type alendronate 70 mg tablet 70 mg PO SA 05/28/20 03/16/21 03/13/21 History bimatoprost 0.01 % eye drops 1 drp OPHTHALMIC (EYE) BEDTIME 05/28/20 03/16/21 03/15/21 History finasteride 5 mg tablet 5 mg PO DAILY 05/28/20 03/16/21 03/15/21 History lamotrigine 25 mg tablet 25 mg PO BID 05/28/20 03/16/21 03/15/21 History metformin 500 mg tablet,extended 500 mg PO QAM 05/28/20 03/16/21 03/16/21 History release 24 hr pantoprazole 40 mg tablet,delayed 40 mg PO DAILY 05/28/20 03/16/21 03/15/21 History release alfuzosin 10 mg tablet,extended 1 tab PO BEDTIME 03/16/21 03/16/21 03/15/21 History release 24 hr bupropion HCl 300 mg 24 hr tablet, 1 tab PO DAILY 03/16/21 03/16/21 03/15/21 History extended release lorazepam 0.5 mg tablet 1 tab PO BID PRN 03/16/21 03/16/21 03/13/21 History melatonin 3 mg tablet 1 tab PO BEDTIME PRN 03/16/21 03/16/21 03/15/21 History olanzapine 2.5 mg tablet 1 tab PO BEDTIME 03/16/21 03/16/21 03/15/21 History sulfamethoxazole 800 1 tab PO BID 03/16/21 03/16/21 03/16/21 History mg-trimethoprim 160 mg tablet (Bactrim DS) Exam Exam Date and Time: April 12, 2021 0651 Height,Weight and Vital Signs: Height 5 ft 5 in Weight 68.132 kg Last Vital Signs Temp 98.6 F 04/12/21 06:35 Pulse 55 04/12/21 06:35 Resp 16 04/12/21 06:35 BP 113/60 04/12/21 06:35 Pulse Ox 95 04/12/21 06:35 Pertinent Lab Results Pertinent Lab Results: Laboratory Tests 03/16/21 03/16/21 03/16/21 16:05 16:39 16:59 WBC RBC Hgb Hct MCV MCH MCHC RDW Plt Count MPV Immature Gran % (Auto) Neut % (Auto) Lymph % (Auto) [place] % (Auto) Eos % (Auto) Baso % (Auto) Lymph # (Auto) [place] # (Auto) Eos # (Auto) Baso # (Auto) Abs Immat Gran (auto) Absolute Neuts (auto) Absolute Nucleated RBC Nucleated RBC % (auto) VBG pH VBG pCO2 VBG pO2 VBG HCO3 VBG O2 Saturation VBG Base Excess Sodium 139 Potassium 4.7 Chloride 108 Carbon Dioxide 21 L Anion Gap 15 BUN 18 H Creatinine 1.13 Estim Creat Clear Calc 46.8 Estimated GFR > 60 POC Glucose Random Glucose 103 Lactic Acid Calcium 10.0 Magnesium 2.0 Total Bilirubin 1.1 H Direct Bilirubin 0.5 AST 32 ALT 34 Alkaline Phosphatase 81 Ammonia 27 Total Creatine Kinase 253 H Troponin I High Sens Total Protein 6.4 L Albumin 4.0 TSH Urine Color Urine Appearance Urine pH Ur Specific [place] Urine Protein Urine Glucose (UA) Urine Ketones Urine Blood Urine Nitrite Ur Leukocyte Esterase Urine Opiates Screen Urine Fentanyl Screen Acetaminophen < 1 Ur Barbiturates Screen Ur Phencyclidine Scrn Ur Amphetamines Screen U Benzodiazepines Scrn Urine Cocaine Screen U Marijuana (THC) Screen Ethyl Alcohol COVID-19 (ANDRE) Negative COVID-19 Clin Com See Note 03/16/21 03/16/21 03/16/21 16:59 16:59 16:59 WBC RBC Hgb Hct MCV MCH MCHC RDW Plt Count MPV Immature Gran % (Auto) Neut % (Auto) Lymph % (Auto) [place] % (Auto) Eos % (Auto) Baso % (Auto) Lymph # (Auto) [place] # (Auto) Eos # (Auto) Baso # (Auto) Abs Immat Gran (auto) Absolute Neuts (auto) Absolute Nucleated RBC Nucleated RBC % (auto) VBG pH VBG pCO2 VBG pO2 VBG HCO3 VBG O2 Saturation VBG Base Excess Sodium Potassium Chloride Carbon Dioxide Anion Gap BUN Creatinine Estim Creat Clear Calc Estimated GFR POC Glucose Random Glucose Lactic Acid 2.3 H* Calcium Magnesium Total Bilirubin Direct Bilirubin AST ALT Alkaline Phosphatase Ammonia Total Creatine Kinase Troponin I High Sens 10.1 Total Protein Albumin TSH 1.77 Urine Color Urine Appearance Urine pH Ur Specific [place] Urine Protein Urine Glucose (UA) Urine Ketones Urine Blood Urine Nitrite Ur Leukocyte Esterase Urine Opiates Screen Urine Fentanyl Screen Acetaminophen Ur Barbiturates Screen Ur Phencyclidine Scrn Ur Amphetamines Screen U Benzodiazepines Scrn Urine Cocaine Screen U Marijuana (THC) Screen Ethyl Alcohol COVID-19 (ANDRE) COVID-19 Clin Com 03/16/21 03/16/21 03/16/21 16:59 17:05 17:29 WBC RBC Hgb Hct MCV MCH MCHC RDW Plt Count MPV Immature Gran % (Auto) Neut % (Auto) Lymph % (Auto) [place] % (Auto) Eos % (Auto) Baso % (Auto) Lymph # (Auto) [place] # (Auto) Eos # (Auto) Baso # (Auto) Abs Immat Gran (auto) Absolute Neuts (auto) Absolute Nucleated RBC Nucleated RBC % (auto) VBG pH 7.36 VBG pCO2 37 VBG pO2 47 VBG HCO3 21 L VBG O2 Saturation 69.0 VBG Base Excess -3.1 Sodium Potassium Chloride Carbon Dioxide Anion Gap BUN Creatinine Estim Creat Clear Calc Estimated GFR POC Glucose Random Glucose Lactic Acid Calcium Magnesium Total Bilirubin Direct Bilirubin AST ALT Alkaline Phosphatase Ammonia Total Creatine Kinase Troponin I High Sens Total Protein Albumin TSH Urine Color YELLOW Urine Appearance CLEAR Urine pH 6.0 Ur Specific [place] >= 1.030 H Urine Protein NEG Urine Glucose (UA) NEG Urine Ketones 5 Urine Blood NEG Urine Nitrite NEG Ur Leukocyte Esterase NEG Urine Opiates Screen Urine Fentanyl Screen Acetaminophen Ur Barbiturates Screen Ur Phencyclidine Scrn Ur Amphetamines Screen U Benzodiazepines Scrn Urine Cocaine Screen U Marijuana (THC) Screen Ethyl Alcohol < 10 COVID-19 (ANDRE) COVID-19 Tripping Com 03/16/21 03/16/21 03/16/21 17:29 17:37 19:10 WBC RBC Hgb Hct MCV MCH MCHC RDW Plt Count MPV Immature Gran % (Auto) Neut % (Auto) Lymph % (Auto) [place] % (Auto) Eos % (Auto) Baso % (Auto) Lymph # (Auto) [place] # (Auto) Eos # (Auto) Baso # (Auto) Abs Immat Gran (auto) Absolute Neuts (auto) Absolute Nucleated RBC Nucleated RBC % (auto) VBG pH VBG pCO2 VBG pO2 VBG HCO3 VBG O2 Saturation VBG Base Excess Sodium Potassium Chloride Carbon Dioxide Anion Gap BUN Creatinine Estim Creat Clear Calc Estimated GFR POC Glucose 94 Random Glucose Lactic Acid 1.5 Calcium Magnesium Total Bilirubin Direct Bilirubin AST ALT Alkaline Phosphatase Ammonia Total Creatine Kinase Troponin I High Sens Total Protein Albumin TSH Urine Color Urine Appearance Urine pH Ur Specific [place] Urine Protein Urine Glucose (UA) Urine Ketones Urine Blood Urine Nitrite Ur Leukocyte Esterase Urine Opiates Screen Not Detected Urine Fentanyl Screen Not Detected Acetaminophen Ur Barbiturates Screen Not Detected Ur Phencyclidine Scrn Not Detected Ur Amphetamines Screen Not Detected U Benzodiazepines Scrn Not Detected Urine Cocaine Screen Not Detected U Marijuana (THC) Screen Not Detected Ethyl Alcohol COVID-19 (ANDRE) COVID-19 Tripping Com 03/16/21 03/17/21 03/17/21 19:42 00:53 02:46 WBC 8.7 RBC 4.48 L Hgb 13.6 L Hct 40.5 L MCV 90.4 MCH 30.4 MCHC 33.6 RDW 13.8 Plt Count 205 MPV 9.0 L Immature Gran % (Auto) 0.3 Neut % (Auto) 83.2 H Lymph % (Auto) 7.5 L [place] % (Auto) 6.9 Eos % (Auto) 1.6 Baso % (Auto) 0.5 Lymph # (Auto) 0.7 L [place] # (Auto) 0.6 Eos # (Auto) 0.1 Baso # (Auto) 0.0 Abs Immat Gran (auto) 0.03 Absolute Neuts (auto) 7.2 Absolute Nucleated RBC 0.000 Nucleated RBC % (auto) 0.0 VBG pH VBG pCO2 VBG pO2 VBG HCO3 VBG O2 Saturation VBG Base Excess Sodium Potassium Chloride Carbon Dioxide Anion Gap BUN Creatinine Estim Creat Clear Calc Estimated GFR POC Glucose 66 Random Glucose Lactic Acid Calcium Magnesium Total Bilirubin Direct Bilirubin AST ALT Alkaline Phosphatase Ammonia Total Creatine Kinase Troponin I High Sens 10.7 Total Protein Albumin TSH Urine Color Urine Appearance Urine pH Ur Specific [place] Urine Protein Urine Glucose (UA) Urine Ketones Urine Blood Urine Nitrite Ur Leukocyte Esterase Urine Opiates Screen Urine Fentanyl Screen Acetaminophen Ur Barbiturates Screen Ur Phencyclidine Scrn Ur Amphetamines Screen U Benzodiazepines Scrn Urine Cocaine Screen U Marijuana (THC) Screen Ethyl Alcohol COVID-19 (ANDRE) COVID-19 Tripping Com 03/17/21 03/17/21 03/18/21 03:46 06:27 06:02 WBC RBC Hgb Hct MCV MCH MCHC RDW Plt Count MPV Immature Gran % (Auto) Neut % (Auto) Lymph % (Auto) [place] % (Auto) Eos % (Auto) Baso % (Auto) Lymph # (Auto) [place] # (Auto) Eos # (Auto) Baso # (Auto) Abs Immat Gran (auto) Absolute Neuts (auto) Absolute Nucleated RBC Nucleated RBC % (auto) VBG pH VBG pCO2 VBG pO2 VBG HCO3 VBG O2 Saturation VBG Base Excess Sodium Potassium Chloride Carbon Dioxide Anion Gap BUN Creatinine Estim Creat Clear Calc Estimated GFR POC Glucose 75 122 H 109 Random Glucose Lactic Acid Calcium Magnesium Total Bilirubin Direct Bilirubin AST ALT Alkaline Phosphatase Ammonia Total Creatine Kinase Troponin I High Sens Total Protein Albumin TSH Urine Color Urine Appearance Urine pH Ur Specific [place] Urine Protein Urine Glucose (UA) Urine Ketones Urine Blood Urine Nitrite Ur Leukocyte Esterase Urine Opiates Screen Urine Fentanyl Screen Acetaminophen Ur Barbiturates Screen Ur Phencyclidine Scrn Ur Amphetamines Screen U Benzodiazepines Scrn Urine Cocaine Screen U Marijuana (THC) Screen Ethyl Alcohol COVID-19 (ANDRE) COVID-19 Tripping Com 03/18/21 03/22/21 03/23/21 07:10 22:05 08:19 WBC RBC Hgb Hct MCV MCH MCHC RDW Plt Count MPV Immature Gran % (Auto) Neut % (Auto) Lymph % (Auto) [place] % (Auto) Eos % (Auto) Baso % (Auto) Lymph # (Auto) [place] # (Auto) Eos # (Auto) Baso # (Auto) Abs Immat Gran (auto) Absolute Neuts (auto) Absolute Nucleated RBC Nucleated RBC % (auto) VBG pH VBG pCO2 VBG pO2 VBG HCO3 VBG O2 Saturation VBG Base Excess Sodium Potassium Chloride Carbon Dioxide Anion Gap BUN Creatinine Estim Creat Clear Calc Estimated GFR POC Glucose 102 161 H 164 H Random Glucose Lactic Acid Calcium Magnesium Total Bilirubin Direct Bilirubin AST ALT Alkaline Phosphatase Ammonia Total Creatine Kinase Troponin I High Sens Total Protein Albumin TSH Urine Color Urine Appearance Urine pH Ur Specific [place] Urine Protein Urine Glucose (UA) Urine Ketones Urine Blood Urine Nitrite Ur Leukocyte Esterase Urine Opiates Screen Urine Fentanyl Screen Acetaminophen Ur Barbiturates Screen Ur Phencyclidine Scrn Ur Amphetamines Screen U Benzodiazepines Scrn Urine Cocaine Screen U Marijuana (THC) Screen Ethyl Alcohol COVID-19 (ANDRE) COVID-19 Clin [place] 03/23/21 03/24/21 03/24/21 23:21 07:58 10:23 WBC RBC Hgb Hct MCV MCH MCHC RDW Plt Count MPV Immature Gran % (Auto) Neut % (Auto) Lymph % (Auto) [place] % (Auto) Eos % (Auto) Baso % (Auto) Lymph # (Auto) [place] # (Auto) Eos # (Auto) Baso # (Auto) Abs Immat Gran (auto) Absolute Neuts (auto) Absolute Nucleated RBC Nucleated RBC % (auto) VBG pH VBG pCO2 VBG pO2 VBG HCO3 VBG O2 Saturation VBG Base Excess Sodium Potassium Chloride Carbon Dioxide Anion Gap BUN Creatinine 1.07 Estim Creat Clear Calc 49.4 Estimated GFR > 60 POC Glucose 102 171 H Random Glucose Lactic Acid Calcium Magnesium Total Bilirubin Direct Bilirubin AST ALT Alkaline Phosphatase Ammonia Total Creatine Kinase Troponin I High Sens Total Protein Albumin TSH Urine Color Urine Appearance Urine pH Ur Specific [place] Urine Protein Urine Glucose (UA) Urine Ketones Urine Blood Urine Nitrite Ur Leukocyte Esterase Urine Opiates Screen Urine Fentanyl Screen Acetaminophen Ur Barbiturates Screen Ur Phencyclidine Scrn Ur Amphetamines Screen U Benzodiazepines Scrn Urine Cocaine Screen U Marijuana (THC) Screen Ethyl Alcohol COVID-19 (ANDRE) COVID-19 [place] 03/24/21 03/25/21 03/25/21 21:07 10:07 21:03 WBC RBC Hgb Hct MCV MCH MCHC RDW Plt Count MPV Immature Gran % (Auto) Neut % (Auto) Lymph % (Auto) [place] % (Auto) Eos % (Auto) Baso % (Auto) Lymph # (Auto) [place] # (Auto) Eos # (Auto) Baso # (Auto) Abs Immat Gran (auto) Absolute Neuts (auto) Absolute Nucleated RBC Nucleated RBC % (auto) VBG pH VBG pCO2 VBG pO2 VBG HCO3 VBG O2 Saturation VBG Base Excess Sodium Potassium Chloride Carbon Dioxide Anion Gap BUN Creatinine Estim Creat Clear Calc Estimated GFR POC Glucose 150 H 265 H 134 H Random Glucose Lactic Acid Calcium Magnesium Total Bilirubin Direct Bilirubin AST ALT Alkaline Phosphatase Ammonia Total Creatine Kinase Troponin I High Sens Total Protein Albumin TSH Urine Color Urine Appearance Urine pH Ur Specific [place] Urine Protein Urine Glucose (UA) Urine Ketones Urine Blood Urine Nitrite Ur Leukocyte Esterase Urine Opiates Screen Urine Fentanyl Screen Acetaminophen Ur Barbiturates Screen Ur Phencyclidine Scrn Ur Amphetamines Screen U Benzodiazepines Scrn Urine Cocaine Screen U Marijuana (THC) Screen Ethyl Alcohol COVID-19 (ANDRE) COVID-[place] 03/27/21 03/27/21 03/28/21 10:49 20:19 10:44 WBC RBC Hgb Hct MCV MCH MCHC RDW Plt Count MPV Immature Gran % (Auto) Neut % (Auto) Lymph % (Auto) [place] % (Auto) Eos % (Auto) Baso % (Auto) Lymph # (Auto) [place] # (Auto) Eos # (Auto) Baso # (Auto) Abs Immat Gran (auto) Absolute Neuts (auto) Absolute Nucleated RBC Nucleated RBC % (auto) VBG pH VBG pCO2 VBG pO2 VBG HCO3 VBG O2 Saturation VBG Base Excess Sodium Potassium Chloride Carbon Dioxide Anion Gap BUN Creatinine Estim Creat Clear Calc Estimated GFR POC Glucose 179 H 160 H 203 H Random Glucose Lactic Acid Calcium Magnesium Total Bilirubin Direct Bilirubin AST ALT Alkaline Phosphatase Ammonia Total Creatine Kinase Troponin I High Sens Total Protein Albumin TSH Urine Color Urine Appearance Urine pH Ur Specific [place] Urine Protein Urine Glucose (UA) Urine Ketones Urine Blood Urine Nitrite Ur Leukocyte Esterase Urine Opiates Screen Urine Fentanyl Screen Acetaminophen Ur Barbiturates Screen Ur Phencyclidine Scrn Ur Amphetamines Screen U Benzodiazepines Scrn Urine Cocaine Screen U Marijuana (THC) Screen Ethyl Alcohol COVID-19 (ANDRE) COVID-19 [place] 03/28/21 03/29/21 03/29/21 21:46 07:40 20:39 WBC RBC Hgb Hct MCV MCH MCHC RDW Plt Count MPV Immature Gran % (Auto) Neut % (Auto) Lymph % (Auto) [place] % (Auto) Eos % (Auto) Baso % (Auto) Lymph # (Auto) [place] # (Auto) Eos # (Auto) Baso # (Auto) Abs Immat Gran (auto) Absolute Neuts (auto) Absolute Nucleated RBC Nucleated RBC % (auto) VBG pH VBG pCO2 VBG pO2 VBG HCO3 VBG O2 Saturation VBG Base Excess Sodium Potassium Chloride Carbon Dioxide Anion Gap BUN Creatinine Estim Creat Clear Calc Estimated GFR POC Glucose 176 H 147 H 205 H Random Glucose Lactic Acid Calcium Magnesium Total Bilirubin Direct Bilirubin AST ALT Alkaline Phosphatase Ammonia Total Creatine Kinase Troponin I High Sens Total Protein Albumin TSH Urine Color Urine Appearance Urine pH Ur Specific [place] Urine Protein Urine Glucose (UA) Urine Ketones Urine Blood Urine Nitrite Ur Leukocyte Esterase Urine Opiates Screen Urine Fentanyl Screen Acetaminophen Ur Barbiturates Screen Ur Phencyclidine Scrn Ur Amphetamines Screen U Benzodiazepines Scrn Urine Cocaine Screen U Marijuana (THC) Screen Ethyl Alcohol COVID-19 (ANDRE) COVID-19 [employer] [place] 03/30/21 03/30/21 03/30/21 07:42 08:02 21:33 WBC RBC Hgb Hct MCV MCH MCHC RDW Plt Count MPV Immature Gran % (Auto) Neut % (Auto) Lymph % (Auto) [place] % (Auto) Eos % (Auto) Baso % (Auto) Lymph # (Auto) [place] # (Auto) Eos # (Auto) Baso # (Auto) Abs Immat Gran (auto) Absolute Neuts (auto) Absolute Nucleated RBC Nucleated RBC % (auto) VBG pH VBG pCO2 VBG pO2 VBG HCO3 VBG O2 Saturation VBG Base Excess Sodium 138 Potassium 4.7 Chloride 106 Carbon Dioxide 26 Anion Gap 11 L BUN 17 H Creatinine 0.92 Estim Creat Clear Calc 57.5 Estimated GFR > 60 POC Glucose 137 H 211 H Random Glucose 169 H D Lactic Acid Calcium 10.3 H Magnesium Total Bilirubin Direct Bilirubin AST ALT Alkaline Phosphatase Ammonia Total Creatine Kinase Troponin I High Sens Total Protein Albumin TSH Urine Color Urine Appearance Urine pH Ur Specific [place] Urine Protein Urine Glucose (UA) Urine Ketones Urine Blood Urine Nitrite Ur Leukocyte Esterase Urine Opiates Screen Urine Fentanyl Screen Acetaminophen Ur Barbiturates Screen Ur Phencyclidine Scrn Ur Amphetamines Screen U Benzodiazepines Scrn Urine Cocaine Screen U Marijuana (THC) Screen Ethyl Alcohol COVID-19 (ANDRE) COVID-19 [employer] [place] 03/31/21 03/31/21 04/01/21 07:31 19:52 07:59 WBC RBC Hgb Hct MCV MCH MCHC RDW Plt Count MPV Immature Gran % (Auto) Neut % (Auto) Lymph % (Auto) [place] % (Auto) Eos % (Auto) Baso % (Auto) Lymph # (Auto) [place] # (Auto) Eos # (Auto) Baso # (Auto) Abs Immat Gran (auto) Absolute Neuts (auto) Absolute Nucleated RBC Nucleated RBC % (auto) VBG pH VBG pCO2 VBG pO2 VBG HCO3 VBG O2 Saturation VBG Base Excess Sodium Potassium Chloride Carbon Dioxide Anion Gap BUN Creatinine Estim Creat Clear Calc Estimated GFR POC Glucose 139 H 190 H 150 H Random Glucose Lactic Acid Calcium Magnesium Total Bilirubin Direct Bilirubin AST ALT Alkaline Phosphatase Ammonia Total Creatine Kinase Troponin I High Sens Total Protein Albumin TSH Urine Color Urine Appearance Urine pH Ur Specific [place] Urine Protein Urine Glucose (UA) Urine Ketones Urine Blood Urine Nitrite Ur Leukocyte Esterase Urine Opiates Screen Urine Fentanyl Screen Acetaminophen Ur Barbiturates Screen Ur Phencyclidine Scrn Ur Amphetamines Screen U Benzodiazepines Scrn Urine Cocaine Screen U Marijuana (THC) Screen Ethyl Alcohol COVID-19 (ANDRE) COVID-[place] 04/01/21 04/01/21 04/02/21 09:41 20:42 08:04 WBC RBC Hgb Hct MCV MCH MCHC RDW Plt Count MPV Immature Gran % (Auto) Neut % (Auto) Lymph % (Auto) [place] % (Auto) Eos % (Auto) Baso % (Auto) Lymph # (Auto) [place] # (Auto) Eos # (Auto) Baso # (Auto) Abs Immat Gran (auto) Absolute Neuts (auto) Absolute Nucleated RBC Nucleated RBC % (auto) VBG pH VBG pCO2 VBG pO2 VBG HCO3 VBG O2 Saturation VBG Base Excess Sodium 138 Potassium 4.6 Chloride 105 Carbon Dioxide 27 Anion Gap 11 L BUN 17 H Creatinine 0.92 Estim Creat Clear Calc 57.5 Estimated GFR > 60 POC Glucose 170 H 149 H Random Glucose 216 H Lactic Acid Calcium 9.6 D Magnesium Total Bilirubin Direct Bilirubin AST ALT Alkaline Phosphatase Ammonia Total Creatine Kinase Troponin I High Sens Total Protein Albumin TSH Urine Color Urine Appearance Urine pH Ur Specific [place] Urine Protein Urine Glucose (UA) Urine Ketones Urine Blood Urine Nitrite Ur Leukocyte Esterase Urine Opiates Screen Urine Fentanyl Screen Acetaminophen Ur Barbiturates Screen Ur Phencyclidine Scrn Ur Amphetamines Screen U Benzodiazepines Scrn Urine Cocaine Screen U Marijuana (THC) Screen Ethyl Alcohol COVID-19 (ANDRE) COVID-19 [employer] [place] 04/02/21 04/03/21 04/03/21 22:21 14:05 22:18 WBC RBC Hgb Hct MCV MCH MCHC RDW Plt Count MPV Immature Gran % (Auto) Neut % (Auto) Lymph % (Auto) [place] % (Auto) Eos % (Auto) Baso % (Auto) Lymph # (Auto) [place] # (Auto) Eos # (Auto) Baso # (Auto) Abs Immat Gran (auto) Absolute Neuts (auto) Absolute Nucleated RBC Nucleated RBC % (auto) VBG pH VBG pCO2 VBG pO2 VBG HCO3 VBG O2 Saturation VBG Base Excess Sodium Potassium Chloride Carbon Dioxide Anion Gap BUN Creatinine Estim Creat Clear Calc Estimated GFR POC Glucose 217 H 136 H 177 H Random Glucose Lactic Acid Calcium Magnesium Total Bilirubin Direct Bilirubin AST ALT Alkaline Phosphatase Ammonia Total Creatine Kinase Troponin I High Sens Total Protein Albumin TSH Urine Color Urine Appearance Urine pH Ur Specific [place] Urine Protein Urine Glucose (UA) Urine Ketones Urine Blood Urine Nitrite Ur Leukocyte Esterase Urine Opiates Screen Urine Fentanyl Screen Acetaminophen Ur Barbiturates Screen Ur Phencyclidine Scrn Ur Amphetamines Screen U Benzodiazepines Scrn Urine Cocaine Screen U Marijuana (THC) Screen Ethyl Alcohol COVID-19 (ANDRE) COVID-19 [employer] 04/04/21 04/04/21 04/05/21 11:08 20:14 05:23 WBC RBC Hgb Hct MCV MCH MCHC RDW Plt Count MPV Immature Gran % (Auto) Neut % (Auto) Lymph % (Auto) [place] % (Auto) Eos % (Auto) Baso % (Auto) Lymph # (Auto) [place] # (Auto) Eos # (Auto) Baso # (Auto) Abs Immat Gran (auto) Absolute Neuts (auto) Absolute Nucleated RBC Nucleated RBC % (auto) VBG pH VBG pCO2 VBG pO2 VBG HCO3 VBG O2 Saturation VBG Base Excess Sodium Potassium Chloride Carbon Dioxide Anion Gap BUN Creatinine Estim Creat Clear Calc Estimated GFR POC Glucose 132 H 152 H 127 H Random Glucose Lactic Acid Calcium Magnesium Total Bilirubin Direct Bilirubin AST ALT Alkaline Phosphatase Ammonia Total Creatine Kinase Troponin I High Sens Total Protein Albumin TSH Urine Color Urine Appearance Urine pH Ur Specific [place] Urine Protein Urine Glucose (UA) Urine Ketones Urine Blood Urine Nitrite Ur Leukocyte Esterase Urine Opiates Screen Urine Fentanyl Screen Acetaminophen Ur Barbiturates Screen Ur Phencyclidine Scrn Ur Amphetamines Screen U Benzodiazepines Scrn Urine Cocaine Screen U Marijuana (THC) Screen Ethyl Alcohol COVID-19 (ANDRE) [employer] 04/05/21 04/05/21 04/06/21 17:24 20:39 20:36 WBC RBC Hgb Hct MCV MCH MCHC RDW Plt Count MPV Immature Gran % (Auto) Neut % (Auto) Lymph % (Auto) [place] % (Auto) Eos % (Auto) Baso % (Auto) Lymph # (Auto) [place] # (Auto) Eos # (Auto) Baso # (Auto) Abs Immat Gran (auto) Absolute Neuts (auto) Absolute Nucleated RBC Nucleated RBC % (auto) VBG pH VBG pCO2 VBG pO2 VBG HCO3 VBG O2 Saturation VBG Base Excess Sodium Potassium Chloride Carbon Dioxide Anion Gap BUN Creatinine Estim Creat Clear Calc Estimated GFR POC Glucose 159 H 157 H 143 H Random Glucose Lactic Acid Calcium Magnesium Total Bilirubin Direct Bilirubin AST ALT Alkaline Phosphatase Ammonia Total Creatine Kinase Troponin I High Sens Total Protein Albumin TSH Urine Color Urine Appearance Urine pH Ur Specific [place] Urine Protein Urine Glucose (UA) Urine Ketones Urine Blood Urine Nitrite Ur Leukocyte Esterase Urine Opiates Screen Urine Fentanyl Screen Acetaminophen Ur Barbiturates Screen Ur Phencyclidine Scrn Ur Amphetamines Screen U Benzodiazepines Scrn Urine Cocaine Screen U Marijuana (THC) Screen Ethyl Alcohol COVID-19 (ANDRE) [employer] 04/07/21 04/07/21 04/08/21 09:16 21:21 07:05 WBC RBC Hgb Hct MCV MCH MCHC RDW Plt Count MPV Immature Gran % (Auto) Neut % (Auto) Lymph % (Auto) [place] % (Auto) Eos % (Auto) Baso % (Auto) Lymph # (Auto) [place] # (Auto) Eos # (Auto) Baso # (Auto) Abs Immat Gran (auto) Absolute Neuts (auto) Absolute Nucleated RBC Nucleated RBC % (auto) VBG pH VBG pCO2 VBG pO2 VBG HCO3 VBG O2 Saturation VBG Base Excess Sodium Potassium Chloride Carbon Dioxide Anion Gap BUN Creatinine 0.85 Estim Creat Clear Calc 62.3 Estimated GFR > 60 POC Glucose 203 H 156 H Random Glucose Lactic Acid Calcium Magnesium Total Bilirubin Direct Bilirubin AST ALT Alkaline Phosphatase Ammonia Total Creatine Kinase Troponin I High Sens Total Protein Albumin TSH Urine Color Urine Appearance Urine pH Ur Specific [place] Urine Protein Urine Glucose (UA) Urine Ketones Urine Blood Urine Nitrite Ur Leukocyte Esterase Urine Opiates Screen Urine Fentanyl Screen Acetaminophen Ur Barbiturates Screen Ur Phencyclidine Scrn Ur Amphetamines Screen U Benzodiazepines Scrn Urine Cocaine Screen U Marijuana (THC) Screen Ethyl Alcohol COVID-19 (ANDRE) [employer] 04/08/21 04/09/21 04/09/21 09:06 05:34 21:02 WBC RBC Hgb Hct MCV MCH MCHC RDW Plt Count MPV Immature Gran % (Auto) Neut % (Auto) Lymph % (Auto) [place] % (Auto) Eos % (Auto) Baso % (Auto) Lymph # (Auto) [place] # (Auto) Eos # (Auto) Baso # (Auto) Abs Immat Gran (auto) Absolute Neuts (auto) Absolute Nucleated RBC Nucleated RBC % (auto) VBG pH VBG pCO2 VBG pO2 VBG HCO3 VBG O2 Saturation VBG Base Excess Sodium Potassium Chloride Carbon Dioxide Anion Gap BUN Creatinine Estim Creat Clear Calc Estimated GFR POC Glucose 208 H 102 164 H Random Glucose Lactic Acid Calcium Magnesium Total Bilirubin Direct Bilirubin AST ALT Alkaline Phosphatase Ammonia Total Creatine Kinase Troponin I High Sens Total Protein Albumin TSH Urine Color Urine Appearance Urine pH Ur Specific [place] Urine Protein Urine Glucose (UA) Urine Ketones Urine Blood Urine Nitrite Ur Leukocyte Esterase Urine Opiates Screen Urine Fentanyl Screen Acetaminophen Ur Barbiturates Screen Ur Phencyclidine Scrn Ur Amphetamines Screen U Benzodiazepines Scrn Urine Cocaine Screen U Marijuana (THC) Screen Ethyl Alcohol COVID-19 (ANDRE) [employer] 04/11/21 04/12/21 21:16 06:24 WBC RBC Hgb Hct MCV MCH MCHC RDW Plt Count MPV Immature Gran % (Auto) Neut % (Auto) Lymph % (Auto) [place] % (Auto) Eos % (Auto) Baso % (Auto) Lymph # (Auto) [place] # (Auto) Eos # (Auto) Baso # (Auto) Abs Immat Gran (auto) Absolute Neuts (auto) Absolute Nucleated RBC Nucleated RBC % (auto) VBG pH VBG pCO2 VBG pO2 VBG HCO3 VBG O2 Saturation VBG Base Excess Sodium Potassium Chloride Carbon Dioxide Anion Gap BUN Creatinine Estim Creat Clear Calc Estimated GFR POC Glucose 143 H 117 H Random Glucose Lactic Acid Calcium Magnesium Total Bilirubin Direct Bilirubin AST ALT Alkaline Phosphatase Ammonia Total Creatine Kinase Troponin I High Sens Total Protein Albumin TSH Urine Color Urine Appearance Urine pH Ur Specific [place] Urine Protein Urine Glucose (UA) Urine Ketones Urine Blood Urine Nitrite Ur Leukocyte Esterase Urine Opiates Screen Urine Fentanyl Screen Acetaminophen Ur Barbiturates Screen Ur Phencyclidine Scrn Ur Amphetamines Screen U Benzodiazepines Scrn Urine Cocaine Screen U Marijuana (THC) Screen Ethyl Alcohol COVID-19 (ANDRE) COVID-19 Clin Com Airway Mallampati Class: II TM Dist: >3cm Neck ROM: Full Heart: rrr Lungs: cc Assessment and Plan Assessment Anesthesia Assessment: Anesthesia Plan Discussed and Chart Reviewed Final Anesthetic Review Family History of Problems with Anesthesia: No History of Problems with Anesthesia: No NPO: Yes ASA Class: III Final Preanesthetic Review: No Changes in Pt Med Stat, Meds/Allgs Chart Reviewed and Consent Obtained/Reviewed Patient Risk: Intermediate Procedure Risk: Intermediate Anesthetic Plan Anesthetic Plan: GA Disposition: Standard PACU
[2021-04-12] MEDS: Lactated Ringers 1,000 ML 50 ML IVCONT (07:43)
[2021-04-12] MEDS: Atorvastatin Calcium 80 MG TABLET PO (09:25)
[2021-04-12] MEDS: buPROPion HCl XL 150 MG TAB.ER.24H PO (09:25)
[2021-04-12] MEDS: Finasteride 5 MG TABLET PO (09:25)
[2021-04-12] MEDS: Metoprolol Tartrate 12.5 MG HALFTAB PO ×2 (09:25→20:34)
[2021-04-12] MEDS: Celecoxib 200 MG CAPSULE PO ×2 (09:25→20:34)
[2021-04-12] MEDS: Isosorbide Mononitrate 60 MG TAB.ER.24H PO (09:26)
[2021-04-12] MEDS: metFORMIN HCl ER 500 MG TAB.ER.24H PO (09:26)
--- NOTE | 2021-04-12 14:57 | P.PNPSI_ITS ---
Subjective Subjective Date of Service: 04/12/21 Reason For Visit: Mood lability Subjective Notes: Conditional Voluntary Interim History: The nursing staff reported that the patient has been mostly in his room but he is pleasant and cooperative. With occupational therapy discussed reported that his affect is brighter and he even smiles. It was seen that he over sleeps most of the days. On interview, the patient denies side effects with ECT, we have ECT today wi thout any problems. We will have a family meeting soon and probably will start thinking of functiona lity discharge this week Mental Status Exam Mental Status Exam Patient Appearance: Well Grooomed Patient Orientation: Person Level of Consciousness: Awake Patient Behavior: Cooperative Mood Description: Depressed Affect Description: Constricted Patient Cognition Impaired: Yes Ability to Follow Directions: Good Speech Pattern: Appropriate Hallucinations: None Delusions: Not Present Thought Process: Distracted and Linear Thought Content: positive for Circumstantial Judgement: Fair Diagnostics Vital Signs (24Hr): Vital Signs - 24 hr 04/11/21 20:38 04/11/21 20:39 04/11/21 21:01 Temperature 97.4 F Pulse Rate 55 55 55 Respiratory Rate 17 Blood Pressure 103/58 L 103/58 L 103/58 L Pulse Oximetry 95 04/12/21 06:00 04/12/21 06:33 04/12/21 06:35 Temperature 98 F 98 F 98.6 F Pulse Rate 55 55 55 Respiratory Rate 17 17 16 Blood Pressure 121/67 121/67 113/60 Pulse Oximetry 97 95 04/12/21 07:24 04/12/21 07:29 04/12/21 07:34 Temperature 97.7 F Pulse Rate 55 55 55 Respiratory Rate 16 18 17 Blood Pressure 163/78 H 114/68 115/66 Pulse Oximetry 97 97 97 04/12/21 07:39 04/12/21 07:51 04/12/21 07:54 Temperature 96.4 F L Pulse Rate 55 55 55 Respiratory Rate 18 16 17 Blood Pressure 115/67 114/64 121/68 Pulse Oximetry 97 95 95 04/12/21 08:10 04/12/21 09:25 04/12/21 09:26 Temperature 98.6 F Pulse Rate 55 55 55 Respiratory Rate 17 Blood Pressure 117/58 L 108/60 108/60 Pulse Oximetry 95 Body Mass Index 25.0 Labs Results: 03/16/21 19:42 04/08/21 07:05 Labs: Laboratory Results - last 48 hr 04/11/21 04/12/21 21:16 06:24 POC Glucose 143 H 117 H Imaging Radiology Impressions: ITS Impressions Cervical Spine CT 03/16/21 15:12 IMPRESSION: 1. No acute intracranial pathology. 2. No CT evidence of acute cervical spine fracture or traumatic subluxation 3. Irregular 1.5 cm lesion right upper lobe. This is chronic unchanged since CAT scan of December 03, 2019. Elbow X-Ray 03/16/21 15:12 IMPRESSION: Arthritis. No fracture or dislocation seen. EXAMINATION: Right elbow x-ray CLINICAL INFORMATION: Pain post fall COMPARISON: None. TECHNIQUE: 3 views of the right elbow FINDINGS: There is a comminuted displaced fracture of the olecranon. No other fracture is seen. Joint spaces are normal. There is an elbow joint effusion. There is soft tissue swelling over the fracture. IMPRESSION: Comminuted displaced fracture of the olecranon. EXAMINATION: Right shoulder x-ray CLINICAL INFORMATION: Pain post fall COMPARISON: None. TECHNIQUE: 3 views of the right shoulder FINDINGS: Bone alignment is normal. No fracture or dislocation is seen. The glenohumeral joint is normal. There is arthritis at the acromioclavicular joint. Soft tissues are unremarkable. IMPRESSION: Arthritis at the acromioclavicular joint. EXAMINATION: Chest x-ray CLINICAL INFORMATION: Pain post fall COMPARISON: Previous chest x-ray August 2016 TECHNIQUE: One view of the chest FINDINGS: The cardiac silhouette is slightly enlarged. Thoracic aorta is tortuous. The pulmonary tavon appear prominent. There is a new right subclavian dual chamber pacemaker. There is a small dense right upper lobe nodule that appears unchanged. The lungs are otherwise clear. There is no pleural effusion or pneumothorax. There are surgical clips in the left axilla. There are degenerative changes of the spine. IMPRESSION: No evidence for acute disease in the chest. Prominent pulmonary tavon questionable for enlarged pulmonary arteries versus lymphadenopathy. Head CT 03/16/21 15:12 IMPRESSION: 1. No acute intracranial pathology. 2. No CT evidence of acute cervical spine fracture or traumatic subluxation 3. Irregular 1.5 cm lesion right upper lobe. This is chronic unchanged since CAT scan of December 03, 2019. Shoulder X-Ray 03/16/21 15:12 IMPRESSION: Arthritis. No fracture or dislocation seen. EXAMINATION: Right elbow x-ray CLINICAL INFORMATION: Pain post fall COMPARISON: None. TECHNIQUE: 3 views of the right elbow FINDINGS: There is a comminuted displaced fracture of the olecranon. No other fracture is seen. Joint spaces are normal. There is an elbow joint effusion. There is soft tissue swelling over the fracture. IMPRESSION: Comminuted displaced fracture of the olecranon. EXAMINATION: Right shoulder x-ray CLINICAL INFORMATION: Pain post fall COMPARISON: None. TECHNIQUE: 3 views of the right shoulder FINDINGS: Bone alignment is normal. No fracture or dislocation is seen. The glenohumeral joint is normal. There is arthritis at the acromioclavicular joint. Soft tissues are unremarkable. IMPRESSION: Arthritis at the acromioclavicular joint. EXAMINATION: Chest x-ray CLINICAL INFORMATION: Pain post fall COMPARISON: Previous chest x-ray August 2016 TECHNIQUE: One view of the chest FINDINGS: The cardiac silhouette is slightly enlarged. Thoracic aorta is tortuous. The pulmonary tavon appear prominent. There is a new right subclavian dual chamber pacemaker. There is a small dense right upper lobe nodule that appears unchanged. The lungs are otherwise clear. There is no pleural effusion or pneumothorax. There are surgical clips in the left axilla. There are degenerative changes of the spine. IMPRESSION: No evidence for acute disease in the chest. Prominent pulmonary tavon questionable for enlarged pulmonary arteries versus lymphadenopathy. Wrist X-Ray 03/16/21 15:12 IMPRESSION: Arthritis. No fracture or dislocation seen. EXAMINATION: Right elbow x-ray CLINICAL INFORMATION: Pain post fall COMPARISON: None. TECHNIQUE: 3 views of the right elbow FINDINGS: There is a comminuted displaced fracture of the olecranon. No other fracture is seen. Joint spaces are normal. There is an elbow joint effusion. There is soft tissue swelling over the fracture. IMPRESSION: Comminuted displaced fracture of the olecranon. EXAMINATION: Right shoulder x-ray CLINICAL INFORMATION: Pain post fall COMPARISON: None. TECHNIQUE: 3 views of the right shoulder FINDINGS: Bone alignment is normal. No fracture or dislocation is seen. The glenohumeral joint is normal. There is arthritis at the acromioclavicular joint. Soft tissues are unremarkable. IMPRESSION: Arthritis at the acromioclavicular joint. EXAMINATION: Chest x-ray CLINICAL INFORMATION: Pain post fall COMPARISON: Previous chest x-ray August 2016 TECHNIQUE: One view of the chest FINDINGS: The cardiac silhouette is slightly enlarged. Thoracic aorta is tortuous. The pulmonary tavon appear prominent. There is a new right subclavian dual chamber pacemaker. There is a small dense right upper lobe nodule that appears unchanged. The lungs are otherwise clear. There is no pleural effusion or pneumothorax. There are surgical clips in the left axilla. There are degenerative changes of the spine. IMPRESSION: No evidence for acute disease in the chest. Prominent pulmonary tavon questionable for enlarged pulmonary arteries versus lymphadenopathy. Chest X-Ray 03/16/21 15:13 IMPRESSION: Arthritis. No fracture or dislocation seen. EXAMINATION: Right elbow x-ray CLINICAL INFORMATION: Pain post fall COMPARISON: None. TECHNIQUE: 3 views of the right elbow FINDINGS: There is a comminuted displaced fracture of the olecranon. No other fracture is seen. Joint spaces are normal. There is an elbow joint effusion. There is soft tissue swelling over the fracture. IMPRESSION: Comminuted displaced fracture of the olecranon. EXAMINATION: Right shoulder x-ray CLINICAL INFORMATION: Pain post fall COMPARISON: None. TECHNIQUE: 3 views of the right shoulder FINDINGS: Bone alignment is normal. No fracture or dislocation is seen. The glenohumeral joint is normal. There is arthritis at the acromioclavicular joint. Soft tissues are unremarkable. IMPRESSION: Arthritis at the acromioclavicular joint. EXAMINATION: Chest x-ray CLINICAL INFORMATION: Pain post fall COMPARISON: Previous chest x-ray August 2016 TECHNIQUE: One view of the chest FINDINGS: The cardiac silhouette is slightly enlarged. Thoracic aorta is tortuous. The pulmonary tavon appear prominent. There is a new right subclavian dual chamber pacemaker. There is a small dense right upper lobe nodule that appears unchanged. The lungs are otherwise clear. There is no pleural effusion or pneumothorax. There are surgical clips in the left axilla. There are degenerative changes of the spine. IMPRESSION: No evidence for acute disease in the chest. Prominent pulmonary tavon questionable for enlarged pulmonary arteries versus lymphadenopathy. Elbow X-Ray 03/25/21 14:11 IMPRESSION: No change in the comminuted displaced olecranon fracture. Knee X-Ray 04/01/21 11:28 IMPRESSION: Moderate to large joint effusion and degenerative changes. Elbow X-Ray 04/01/21 13:59 IMPRESSION: Comminuted fracture proximal olecranon. Medications Medications Current Medications Acetaminophen (Acetaminophen 325 Mg Tablet) 650 mg PO Q6H PRN PRN Reason: Headache/Pain Mild Scale (1-3) Last Admin: 03/31/21 23:54 Dose: 650 mg Documented by: Acetaminophen (Acetaminophen 325 Mg Tablet) 650 mg PO Q6H PRN PRN Reason: Headache/Pain Mild Scale (1-3) Acetaminophen (Acetaminophen 325 Mg Tablet) 650 mg PO ONCE PRN PRN Reason: Pain, Mild (Pain Scale 1-3) Al Hydroxide/Mg Hydroxide (Magnesium Hydrox/Alum Hydrox 30 Ml Oral.Susp) 30 ml PO Q6H PRN PRN Reason: Heartburn/Nausea Alendronate Sodium (Alendronate Sodium 70 Mg Tablet) 70 mg PO SA [facility] Last Admin: 04/10/21 09:10 Dose: 70 mg Documented by: Amlodipine Besylate (Amlodipine Besylate 2.5 Mg Tablet) 2.5 mg PO BEDTIME [facility]; Protocol Last Admin: 04/11/21 20:39 Dose: 2.5 mg Documented by: Atorvastatin Calcium (Atorvastatin Calcium 80 Mg Tablet) 80 mg PO DAILY [facility] Last Admin: 04/12/21 09:25 Dose: 80 mg Documented by: Bupropion HCl (Bupropion Hcl Xl 150 Mg Tab.Er.24h) 150 mg PO DAILY [facility] Last Admin: 04/12/21 09:25 Dose: 150 mg Documented by: Celecoxib (Celecoxib 200 Mg Capsule) 200 mg PO BID TEDDY Last Admin: 04/12/21 09:25 Dose: 200 mg Documented by: Finasteride (Finasteride 5 Mg Tablet) 5 mg PO DAILY [facility] Last Admin: 04/12/21 09:25 Dose: 5 mg Documented by: Hydroxyzine HCl (Hydroxyzine Hcl 25 Mg Tablet) 25 mg PO Q6H PRN PRN Reason: Anxiety Last Admin: 04/03/21 20:15 Dose: 25 mg Documented by: Lactated Ringer's (Lr) 1,000 mls @ 50 mls/hr IVCONT .Q20H TEDDY Last Admin: 04/12/21 07:43 Dose: 50 mls/hr Documented by: Isosorbide Mononitrate (Isosorbide Mononitrate 60 Mg Tab.Er.24h) 60 mg PO DAILY TEDDY; Protocol Last Admin: 04/12/21 09:26 Dose: 60 mg Documented by: Magnesium Hydroxide (Milk Of Magnesia 30 Ml Oral.Susp) 30 ml PO DAILY PRN PRN Reason: Constipation Magnesium Hydroxide (Milk Of Magnesia 30 Ml Oral.Susp) 30 ml PO DAILY PRN PRN Reason: Constipation Melatonin (Melatonin 3 Mg Tablet) 3 mg PO BEDTIME PRN PRN Reason: insomnia Last Admin: 04/08/21 01:54 Dose: 3 mg Documented by: Metformin HCl (Metformin Hcl Er 500 Mg Tab.Er.24h) 500 mg PO DAILY TEDDY Last Admin: 04/12/21 09:26 Dose: 500 mg Documented by: Metoprolol Tartrate (Metoprolol Tartrate 12.5 Mg Halftab) 12.5 mg PO BID [facility]; Protocol Last Admin: 04/12/21 09:25 Dose: 12.5 mg Documented by: Patient Own Med ( Alfuzosin Hcl Er 10mg) 1 each PO BEDTIME TEDDY Last Admin: 04/11/21 20:39 Dose: 1 each Documented by: Patient Own Med ( (Lumigan 0.01% Soln)) 1 each EYE-BOTH BEDTIME TEDDY Last Admin: 04/11/21 20:39 Dose: 1 each Documented by: Olanzapine (Olanzapine 10 Mg Tablet) 10 mg PO BEDTIME TEDDY Last Admin: 04/11/21 20:39 Dose: 10 mg Documented by: Omeprazole (Omeprazole 20 Mg Capsule.Dr) 20 mg PO DAILY@0630 [facility] Last Admin: 04/12/21 06:04 Dose: 20 mg Documented by: Ondansetron HCl (Ondansetron Hcl 4 Mg/2 Ml Vial) 4 mg IVPUSH ONCE PRN PRN Reason: Nausea and Vomiting Pharmacy Consult (Consult Rx Perform Med Rec) 1 each MISCELLANE ONCE PRN PRN Reason: Consult order Pharmacy Consult (Consult Rx Perform Med Rec) 1 each MISCELLANE ONCE PRN PRN Reason: Consult order Trazodone HCl (Trazodone Hcl 50 Mg Tablet) 50 mg PO BEDTIME PRN PRN Reason: Insomnia Last Admin: 03/20/21 01:20 Dose: 50 mg Documented by: Allergies Allergies Allergy/AdvReac Type Severity Reaction Status Date / Time metoprolol AdvReac Unknown bradycardia Verified 03/16/21 14:28 timolol AdvReac Unknown low bp Verified 03/16/21 14:28 tamsulosin [From Flomax] AdvReac Diarrhea Verified 03/22/21 13:42 beta blockers AdvReac Hypotension Uncoded 03/22/21 13:46 Assessment & Plan Assessment & Plan (1) Bipolar disorder: Status: Acute Code(s): F31.9 - Bipolar disorder, unspecified Assessment and Plan: 80-year-old male with a history of bipolar disease and dementia, admitted for exacerbation of mixed symptoms elicited by hypomania and severe depression. Plan 1. Continue same medications. 2. ECT per primary team. 3. Family meeting next week I spent minutes with the patient and/or on the patient floor today, greater than?50% of which was spent counseling/coordinating care. Reason for contiued inpatient stay Substantial Risk for: inability to function, rapid decompensation and med/psych decompensation
[2021-04-12] MEDS: amLODIPine Besylate 2.5 MG TABLET PO (20:34)
[2021-04-12] MEDS: OLANZapine 10 MG TABLET PO (20:34)
[2021-04-12 20:48] LABS: Glucose, Whole Blood 110 mg/dL (60-115)
[2021-04-13] MEDS: Omeprazole 20 MG CAPSULE.DR PO (06:23)
[2021-04-13 08:47] VITALS: BP 101/59; PULSE 65
[2021-04-13] MEDS: Atorvastatin Calcium 80 MG TABLET PO (08:47)
[2021-04-13] MEDS: Isosorbide Mononitrate 60 MG TAB.ER.24H PO (08:47)
[2021-04-13] MEDS: metFORMIN HCl ER 500 MG TAB.ER.24H PO (08:48)
[2021-04-13] MEDS: buPROPion HCl XL 150 MG TAB.ER.24H PO (08:48)
[2021-04-13] MEDS: Celecoxib 200 MG CAPSULE PO ×2 (08:48→20:50)
[2021-04-13] MEDS: Finasteride 5 MG TABLET PO (08:49)
[2021-04-13] MEDS: Metoprolol Tartrate 12.5 MG HALFTAB PO ×2 (08:49→20:51)
[2021-04-13 09:13] VITALS: BP 101/59; PULSE 65; RESP 14; TEMP 36.9; O2SAT 94
[2021-04-13 10:03] LABS: Glucose, Whole Blood 203 mg/dL (60-115)
--- NOTE | 2021-04-13 15:54 | P.PNPSI_ITS ---
Subjective Subjective Date of Service: 04/13/21 Reason For Visit: Mood lability Subjective Notes: Conditional Voluntary Interim History: The nursing staff reports the patient is doing fine, he showed more range of his affect. On interview, the patient denies new symptoms, he will have ECT tomorrow Mental Status Exam Mental Status Exam Patient Appearance: Well Grooomed Patient Orientation: Person and Situation Level of Consciousness: Awake and Appropriate Patient Behavior: Cooperative Mood Description: Constricted Affect Description: Depressed Patient Cognition Impaired: Yes Ability to Follow Directions: Good Speech Pattern: Clear Hallucinations: None Delusions: Not Present Thought Content: positive for Circumstantial Judgement: Fair Diagnostics Vital Signs (24Hr): Vital Signs - 24 hr 04/13/21 08:47 04/13/21 09:13 Temperature 98.4 F Pulse Rate 65 65 Respiratory Rate 14 Blood Pressure 101/59 L 101/59 L Pulse Oximetry 94 Body Mass Index 25.0 Labs Results: 03/16/21 19:42 04/08/21 07:05 Labs: Laboratory Results - last 48 hr 04/11/21 04/12/21 04/12/21 21:16 06:24 20:41 POC Glucose 143 H 117 H 110 04/13/21 08:45 POC Glucose 203 H Imaging Radiology Impressions: ITS Impressions Cervical Spine CT 03/16/21 15:12 IMPRESSION: 1. No acute intracranial pathology. 2. No CT evidence of acute cervical spine fracture or traumatic subluxation 3. Irregular 1.5 cm lesion right upper lobe. This is chronic unchanged since CAT scan of December 03, 2019. Elbow X-Ray 03/16/21 15:12 IMPRESSION: Arthritis. No fracture or dislocation seen. EXAMINATION: Right elbow x-ray CLINICAL INFORMATION: Pain post fall COMPARISON: None. TECHNIQUE: 3 views of the right elbow FINDINGS: There is a comminuted displaced fracture of the olecranon. No other fracture is seen. Joint spaces are normal. There is an elbow joint effusion. There is soft tissue swelling over the fracture. IMPRESSION: Comminuted displaced fracture of the olecranon. EXAMINATION: Right shoulder x-ray CLINICAL INFORMATION: Pain post fall COMPARISON: None. TECHNIQUE: 3 views of the right shoulder FINDINGS: Bone alignment is normal. No fracture or dislocation is seen. The glenohumeral joint is normal. There is arthritis at the acromioclavicular joint. Soft tissues are unremarkable. IMPRESSION: Arthritis at the acromioclavicular joint. EXAMINATION: Chest x-ray CLINICAL INFORMATION: Pain post fall COMPARISON: Previous chest x-ray August 2016 TECHNIQUE: One view of the chest FINDINGS: The cardiac silhouette is slightly enlarged. Thoracic aorta is tortuous. The pulmonary tavon appear prominent. There is a new right subclavian dual chamber pacemaker. There is a small dense right upper lobe nodule that appears unchanged. The lungs are otherwise clear. There is no pleural effusion or pneumothorax. There are surgical clips in the left axilla. There are degenerative changes of the spine. IMPRESSION: No evidence for acute disease in the chest. Prominent pulmonary tavon questionable for enlarged pulmonary arteries versus lymphadenopathy. Head CT 03/16/21 15:12 IMPRESSION: 1. No acute intracranial pathology. 2. No CT evidence of acute cervical spine fracture or traumatic subluxation 3. Irregular 1.5 cm lesion right upper lobe. This is chronic unchanged since CAT scan of December 03, 2019. Shoulder X-Ray 03/16/21 15:12 IMPRESSION: Arthritis. No fracture or dislocation seen. EXAMINATION: Right elbow x-ray CLINICAL INFORMATION: Pain post fall COMPARISON: None. TECHNIQUE: 3 views of the right elbow FINDINGS: There is a comminuted displaced fracture of the olecranon. No other fracture is seen. Joint spaces are normal. There is an elbow joint effusion. There is soft tissue swelling over the fracture. IMPRESSION: Comminuted displaced fracture of the olecranon. EXAMINATION: Right shoulder x-ray CLINICAL INFORMATION: Pain post fall COMPARISON: None. TECHNIQUE: 3 views of the right shoulder FINDINGS: Bone alignment is normal. No fracture or dislocation is seen. The glenohumeral joint is normal. There is arthritis at the acromioclavicular joint. Soft tissues are unremarkable. IMPRESSION: Arthritis at the acromioclavicular joint. EXAMINATION: Chest x-ray CLINICAL INFORMATION: Pain post fall COMPARISON: Previous chest x-ray August 2016 TECHNIQUE: One view of the chest FINDINGS: The cardiac silhouette is slightly enlarged. Thoracic aorta is tortuous. The pulmonary tavon appear prominent. There is a new right subclavian dual chamber pacemaker. There is a small dense right upper lobe nodule that appears unchanged. The lungs are otherwise clear. There is no pleural effusion or pneumothorax. There are surgical clips in the left axilla. There are degenerative changes of the spine. IMPRESSION: No evidence for acute disease in the chest. Prominent pulmonary tavon questionable for enlarged pulmonary arteries versus lymphadenopathy. Wrist X-Ray 03/16/21 15:12 IMPRESSION: Arthritis. No fracture or dislocation seen. EXAMINATION: Right elbow x-ray CLINICAL INFORMATION: Pain post fall COMPARISON: None. TECHNIQUE: 3 views of the right elbow FINDINGS: There is a comminuted displaced fracture of the olecranon. No other fracture is seen. Joint spaces are normal. There is an elbow joint effusion. There is soft tissue swelling over the fracture. IMPRESSION: Comminuted displaced fracture of the olecranon. EXAMINATION: Right shoulder x-ray CLINICAL INFORMATION: Pain post fall COMPARISON: None. TECHNIQUE: 3 views of the right shoulder FINDINGS: Bone alignment is normal. No fracture or dislocation is seen. The glenohumeral joint is normal. There is arthritis at the acromioclavicular joint. Soft tissues are unremarkable. IMPRESSION: Arthritis at the acromioclavicular joint. EXAMINATION: Chest x-ray CLINICAL INFORMATION: Pain post fall COMPARISON: Previous chest x-ray August 2016 TECHNIQUE: One view of the chest FINDINGS: The cardiac silhouette is slightly enlarged. Thoracic aorta is tortuous. The pulmonary tavon appear prominent. There is a new right subclavian dual chamber pacemaker. There is a small dense right upper lobe nodule that appears unchanged. The lungs are otherwise clear. There is no pleural effusion or pneumothorax. There are surgical clips in the left axilla. There are degenerative changes of the spine. IMPRESSION: No evidence for acute disease in the chest. Prominent pulmonary tavon questionable for enlarged pulmonary arteries versus lymphadenopathy. Chest X-Ray 03/16/21 15:13 IMPRESSION: Arthritis. No fracture or dislocation seen. EXAMINATION: Right elbow x-ray CLINICAL INFORMATION: Pain post fall COMPARISON: None. TECHNIQUE: 3 views of the right elbow FINDINGS: There is a comminuted displaced fracture of the olecranon. No other fracture is seen. Joint spaces are normal. There is an elbow joint effusion. There is soft tissue swelling over the fracture. IMPRESSION: Comminuted displaced fracture of the olecranon. EXAMINATION: Right shoulder x-ray CLINICAL INFORMATION: Pain post fall COMPARISON: None. TECHNIQUE: 3 views of the right shoulder FINDINGS: Bone alignment is normal. No fracture or dislocation is seen. The glenohumeral joint is normal. There is arthritis at the acromioclavicular joint. Soft tissues are unremarkable. IMPRESSION: Arthritis at the acromioclavicular joint. EXAMINATION: Chest x-ray CLINICAL INFORMATION: Pain post fall COMPARISON: Previous chest x-ray August 2016 TECHNIQUE: One view of the chest FINDINGS: The cardiac silhouette is slightly enlarged. Thoracic aorta is tortuous. The pulmonary tavon appear prominent. There is a new right subclavian dual chamber pacemaker. There is a small dense right upper lobe nodule that appears unchanged. The lungs are otherwise clear. There is no pleural effusion or pneumothorax. There are surgical clips in the left axilla. There are degenerative changes of the spine. IMPRESSION: No evidence for acute disease in the chest. Prominent pulmonary tavon questionable for enlarged pulmonary arteries versus lymphadenopathy. Elbow X-Ray 03/25/21 14:11 IMPRESSION: No change in the comminuted displaced olecranon fracture. Knee X-Ray 04/01/21 11:28 IMPRESSION: Moderate to large joint effusion and degenerative changes. Elbow X-Ray 04/01/21 13:59 IMPRESSION: Comminuted fracture proximal olecranon. Medications Medications Current Medications Acetaminophen (Acetaminophen 325 Mg Tablet) 650 mg PO Q6H PRN PRN Reason: Headache/Pain Mild Scale (1-3) Last Admin: 03/31/21 23:54 Dose: 650 mg Documented by: Acetaminophen (Acetaminophen 325 Mg Tablet) 650 mg PO Q6H PRN PRN Reason: Headache/Pain Mild Scale (1-3) Acetaminophen (Acetaminophen 325 Mg Tablet) 650 mg PO ONCE PRN PRN Reason: Pain, Mild (Pain Scale 1-3) Al Hydroxide/Mg Hydroxide (Magnesium Hydrox/Alum Hydrox 30 Ml Oral.Susp) 30 ml PO Q6H PRN PRN Reason: Heartburn/Nausea Alendronate Sodium (Alendronate Sodium 70 Mg Tablet) 70 mg PO SA [facility] Last Admin: 04/10/21 09:10 Dose: 70 mg Documented by: Amlodipine Besylate (Amlodipine Besylate 2.5 Mg Tablet) 2.5 mg PO BEDTIME TEDDY; Protocol Last Admin: 04/12/21 20:34 Dose: 2.5 mg Documented by: Atorvastatin Calcium (Atorvastatin Calcium 80 Mg Tablet) 80 mg PO DAILY [facility] Last Admin: 04/13/21 08:47 Dose: 80 mg Documented by: Bupropion HCl (Bupropion Hcl Xl 150 Mg Tab.Er.24h) 150 mg PO DAILY [facility] Last Admin: 04/13/21 08:48 Dose: 150 mg Documented by: Celecoxib (Celecoxib 200 Mg Capsule) 200 mg PO BID [facility] Last Admin: 04/13/21 08:48 Dose: 200 mg Documented by: Finasteride (Finasteride 5 Mg Tablet) 5 mg PO DAILY [facility] Last Admin: 04/13/21 08:49 Dose: 5 mg Documented by: Hydroxyzine HCl (Hydroxyzine Hcl 25 Mg Tablet) 25 mg PO Q6H PRN PRN Reason: Anxiety Last Admin: 04/03/21 20:15 Dose: 25 mg Documented by: Lactated Ringer's (Lr) 1,000 mls @ 50 mls/hr IVCONT .Q20H [facility] Last Infusion: 04/13/21 03:05 Dose: 0 mls/hr Documented by: Isosorbide Mononitrate (Isosorbide Mononitrate 60 Mg Tab.Er.24h) 60 mg PO DAILY [facility]; Protocol Last Admin: 04/13/21 08:47 Dose: 60 mg Documented by: Magnesium Hydroxide (Milk Of Magnesia 30 Ml Oral.Susp) 30 ml PO DAILY PRN PRN Reason: Constipation Magnesium Hydroxide (Milk Of Magnesia 30 Ml Oral.Susp) 30 ml PO DAILY PRN PRN Reason: Constipation Melatonin (Melatonin 3 Mg Tablet) 3 mg PO BEDTIME PRN PRN Reason: insomnia Last Admin: 04/08/21 01:54 Dose: 3 mg Documented by: Metformin HCl (Metformin Hcl Er 500 Mg Tab.Er.24h) 500 mg PO DAILY [facility] Last Admin: 04/13/21 08:48 Dose: 500 mg Documented by: Metoprolol Tartrate (Metoprolol Tartrate 12.5 Mg Halftab) 12.5 mg PO BID [facility]; Protocol Last Admin: 04/13/21 08:49 Dose: 12.5 mg Documented by: Patient Own Med ( Alfuzosin Hcl Er 10mg) 1 each PO BEDTIME [facility] Last Admin: 04/12/21 20:34 Dose: 1 each Documented by: Patient Own Med ( (Lumigan 0.01% Soln)) 1 each EYE-BOTH BEDTIME [facility] Last Admin: 04/12/21 20:34 Dose: 1 each Documented by: Olanzapine (Olanzapine 10 Mg Tablet) 10 mg PO BEDTIME [facility] Last Admin: 04/12/21 20:34 Dose: 10 mg Documented by: Omeprazole (Omeprazole 20 Mg Capsule.) 20 mg PO DAILY@0630 [facility] Last Admin: 04/13/21 06:23 Dose: 20 mg Documented by: Ondansetron HCl (Ondansetron Hcl 4 Mg/2 Ml Vial) 4 mg IVPUSH ONCE PRN PRN Reason: Nausea and Vomiting Pharmacy Consult (Consult Rx Perform Med Rec) 1 each MISCELLANE ONCE PRN PRN Reason: Consult order Pharmacy Consult (Consult Rx Perform Med Rec) 1 each MISCELLANE ONCE PRN PRN Reason: Consult order Trazodone HCl (Trazodone Hcl 50 Mg Tablet) 50 mg PO BEDTIME PRN PRN Reason: Insomnia Last Admin: 03/20/21 01:20 Dose: 50 mg Documented by: Allergies Allergies Allergy/AdvReac Type Severity Reaction Status Date / Time metoprolol AdvReac Unknown bradycardia Verified 03/16/21 14:28 timolol AdvReac Unknown low bp Verified 03/16/21 14:28 tamsulosin [From Flomax] AdvReac Diarrhea Verified 03/22/21 13:42 beta blockers AdvReac Hypotension Uncoded 03/22/21 13:46 Assessment & Plan Assessment & Plan (1) Bipolar disorder: Status: Acute Code(s): F31.9 - Bipolar disorder, unspecified Assessment and Plan: 80-year-old male with a history of bipolar disease and dementia, admitted for exacerbation of mixed symptoms elicited by hypomania and severe depression. Plan 1. Continue same medications. 2. ECT per primary team. 3. Family meeting next week I spent minutes with the patient and/or on the patient floor today, greater than?50% of which was spent counseling/coordinating care. Reason for contiued inpatient stay Substantial Risk for: inability to function, rapid decompensation and med/psych decompensation
[2021-04-13 20:50] VITALS: BP 99/59; PULSE 60
[2021-04-13] MEDS: amLODIPine Besylate 2.5 MG TABLET PO (20:50)
[2021-04-13 20:51] VITALS: BP 99/59; PULSE 60
[2021-04-13] MEDS: OLANZapine 10 MG TABLET PO (20:51)
[2021-04-14] VITALS (15 sets, daily range): BP systolic 93–162; BP diastolic 53–80; PULSE 55–62; RESP 16–18; TEMP 35.2–37.1; O2SAT 94–99
[2021-04-14 03:46] LABS: Glucose, Whole Blood 154 mg/dL (60-115)
[2021-04-14] MEDS: Metoprolol Tartrate 12.5 MG HALFTAB PO (06:19)
[2021-04-14 06:28] LABS: Glucose, Whole Blood 93 mg/dL (60-115)
--- NOTE | 2021-04-14 07:07 | P.CONAN_ITS ---
FORM[facility] Active Problems Active Problems: All Active Problems (Updated 03/17/21 @ 17:33 by Desiree canas) Bipolar disorder (Acute) Acute confusion (Acute) Elbow fracture, right (Acute) Major depression (Acute) Acute alteration in mental status (Acute) Chest pressure (Acute) CAD (coronary artery disease) (Acute) Cardiac pacemaker in situ (Acute) HTN (hypertension) (Acute) Diabetes (Acute) Hyperlipidemia (Acute) Past Medical History Medical History CAD (coronary artery disease) Cardiac pacemaker in situ Diabetes History of left breast cancer HTN (hypertension) Hyperlipidemia Sick sinus syndrome Family History Family History Father CVD (cardiovascular disease) Mother CVD (cardiovascular disease) Brother CVD (cardiovascular disease) Sister Diabetes Son Diabetes Family history of problems with anesthesia: No Surgical History Surgical History History of permanent cardiac pacemaker placement Hx of CABG Hx of cataract surgery Hx of mastectomy History of Problems with Anesthesia: No Social History Social History Household Members: Spouse Housing: House Do you presently have visiting nurse or other home services: No Alcohol intake: never Patient Tobacco Use Status: Former Tobacco user Tobacco use type: Cigarette Advance Directives Date on File: 03/17/21 service: No Sexual orientation: Straight/Heterosexual Meds Allergies Allergy/AdvReac Type Severity Reaction Status Date / Time metoprolol AdvReac Unknown bradycardia Verified 03/16/21 14:28 timolol AdvReac Unknown low bp Verified 03/16/21 14:28 tamsulosin [From Flomax] AdvReac Diarrhea Verified 03/22/21 13:42 beta blockers AdvReac Hypotension Uncoded 03/22/21 13:46 Active Medications: Current Medications Acetaminophen (Acetaminophen 325 Mg Tablet) 650 mg PO Q6H PRN PRN Reason: Headache/Pain Mild Scale (1-3) Last Admin: 03/31/21 23:54 Dose: 650 mg Documented by: Acetaminophen (Acetaminophen 325 Mg Tablet) 650 mg PO Q6H PRN PRN Reason: Headache/Pain Mild Scale (1-3) Acetaminophen (Acetaminophen 325 Mg Tablet) 650 mg PO ONCE PRN PRN Reason: Pain, Mild (Pain Scale 1-3) Al Hydroxide/Mg Hydroxide (Magnesium Hydrox/Alum Hydrox 30 Ml Oral.Susp) 30 ml PO Q6H PRN PRN Reason: Heartburn/Nausea Alendronate Sodium (Alendronate Sodium 70 Mg Tablet) 70 mg PO SA [facility] Last Admin: 04/10/21 09:10 Dose: 70 mg Documented by: Amlodipine Besylate (Amlodipine Besylate 2.5 Mg Tablet) 2.5 mg PO BEDTIME [facility]; Protocol Last Admin: 04/13/21 20:50 Dose: 2.5 mg Documented by: Atorvastatin Calcium (Atorvastatin Calcium 80 Mg Tablet) 80 mg PO DAILY [facility] Last Admin: 04/13/21 08:47 Dose: 80 mg Documented by: Bupropion HCl (Bupropion Hcl Xl 150 Mg Tab.Er.24h) 150 mg PO DAILY [facility] Last Admin: 04/13/21 08:48 Dose: 150 mg Documented by: Celecoxib (Celecoxib 200 Mg Capsule) 200 mg PO BID [facility] Last Admin: 04/13/21 20:50 Dose: 200 mg Documented by: Finasteride (Finasteride 5 Mg Tablet) 5 mg PO DAILY [facility] Last Admin: 04/13/21 08:49 Dose: 5 mg Documented by: Hydroxyzine HCl (Hydroxyzine Hcl 25 Mg Tablet) 25 mg PO Q6H PRN PRN Reason: Anxiety Last Admin: 04/03/21 20:15 Dose: 25 mg Documented by: Lactated Ringer's (Lr) 1,000 mls @ 50 mls/hr IVCONT .Q20H [facility] Last Admin: 04/14/21 00:18 Dose: Not Given Documented by: Isosorbide Mononitrate (Isosorbide Mononitrate 60 Mg Tab.Er.24h) 60 mg PO DAILY [facility]; Protocol Last Admin: 04/13/21 08:47 Dose: 60 mg Documented by: Magnesium Hydroxide (Milk Of Magnesia 30 Ml Oral.Susp) 30 ml PO DAILY PRN PRN Reason: Constipation Magnesium Hydroxide (Milk Of Magnesia 30 Ml Oral.Susp) 30 ml PO DAILY PRN PRN Reason: Constipation Melatonin (Melatonin 3 Mg Tablet) 3 mg PO BEDTIME PRN PRN Reason: insomnia Last Admin: 04/08/21 01:54 Dose: 3 mg Documented by: Metformin HCl (Metformin Hcl Er 500 Mg Tab.Er.24h) 500 mg PO DAILY [facility] Last Admin: 04/13/21 08:48 Dose: 500 mg Documented by: Metoprolol Tartrate (Metoprolol Tartrate 12.5 Mg Halftab) 12.5 mg PO BID [facility]; Protocol Last Admin: 04/14/21 06:19 Dose: 12.5 mg Documented by: Patient Own Med ( Alfuzosin Hcl Er 10mg) 1 each PO BEDTIME [facility] Last Admin: 04/13/21 20:51 Dose: 1 each Documented by: Patient Own Med ( (Lumigan 0.01% Soln)) 1 each EYE-BOTH BEDTIME [facility] Last Admin: 04/13/21 20:51 Dose: 1 each Documented by: Olanzapine (Olanzapine 10 Mg Tablet) 10 mg PO BEDTIME [facility] Last Admin: 04/13/21 20:51 Dose: 10 mg Documented by: Omeprazole (Omeprazole 20 Mg Capsule.Dr) 20 mg PO DAILY@0630 [facility] Last Admin: 04/13/21 06:23 Dose: 20 mg Documented by: Ondansetron HCl (Ondansetron Hcl 4 Mg/2 Ml Vial) 4 mg IVPUSH ONCE PRN PRN Reason: Nausea and Vomiting Pharmacy Consult (Consult Rx Perform Med Rec) 1 each MISCELLANE ONCE PRN PRN Reason: Consult order Pharmacy Consult (Consult Rx Perform Med Rec) 1 each MISCELLANE ONCE PRN PRN Reason: Consult order Trazodone HCl (Trazodone Hcl 50 Mg Tablet) 50 mg PO BEDTIME PRN PRN Reason: Insomnia Last Admin: 03/20/21 01:20 Dose: 50 mg Documented by: Home Medications Medication Instructions Recorded Confirmed Last Taken Type alendronate 70 mg tablet 70 mg PO SA 05/28/20 03/16/21 03/13/21 History bimatoprost 0.01 % eye drops 1 drp OPHTHALMIC (EYE) BEDTIME 05/28/20 03/16/21 03/15/21 History finasteride 5 mg tablet 5 mg PO DAILY 05/28/20 03/16/21 03/15/21 History lamotrigine 25 mg tablet 25 mg PO BID 05/28/20 03/16/21 03/15/21 History metformin 500 mg tablet,extended 500 mg PO QAM 05/28/20 03/16/21 03/16/21 History release 24 hr pantoprazole 40 mg tablet,delayed 40 mg PO DAILY 05/28/20 03/16/21 03/15/21 History release alfuzosin 10 mg tablet,extended 1 tab PO BEDTIME 03/16/21 03/16/21 03/15/21 History release 24 hr bupropion HCl 300 mg 24 hr tablet, 1 tab PO DAILY 03/16/21 03/16/21 03/15/21 History extended release lorazepam 0.5 mg tablet 1 tab PO BID PRN 03/16/21 03/16/21 03/13/21 History melatonin 3 mg tablet 1 tab PO BEDTIME PRN 03/16/21 03/16/21 03/15/21 History olanzapine 2.5 mg tablet 1 tab PO BEDTIME 03/16/21 03/16/21 03/15/21 History sulfamethoxazole 800 1 tab PO BID 03/16/21 03/16/21 03/16/21 History mg-trimethoprim 160 mg tablet (Bactrim DS) Exam Exam Date and Time: April 14, 2021 0707 Height,Weight and Vital Signs: Height 5 ft 5 in Weight 68.132 kg Last Vital Signs Temp 97.0 F 04/14/21 06:46 Pulse 55 04/14/21 06:46 Resp 16 04/14/21 06:46 BP 108/63 04/14/21 06:46 Pulse Ox 96 04/14/21 06:46 Pertinent Lab Results Pertinent Lab Results: Laboratory Tests 03/16/21 03/16/21 03/16/21 16:05 16:39 16:59 WBC RBC Hgb Hct MCV MCH MCHC RDW Plt Count MPV Immature Gran % (Auto) Neut % (Auto) Lymph % (Auto) [place] % (Auto) Eos % (Auto) Baso % (Auto) Lymph # (Auto) [place] # (Auto) Eos # (Auto) Baso # (Auto) Abs Immat Gran (auto) Absolute Neuts (auto) Absolute Nucleated RBC Nucleated RBC % (auto) VBG pH VBG pCO2 VBG pO2 VBG HCO3 VBG O2 Saturation VBG Base Excess Sodium 139 Potassium 4.7 Chloride 108 Carbon Dioxide 21 L Anion Gap 15 BUN 18 H Creatinine 1.13 Estim Creat Clear Calc 46.8 Estimated GFR > 60 POC Glucose Random Glucose 103 Lactic Acid Calcium 10.0 Magnesium 2.0 Total Bilirubin 1.1 H Direct Bilirubin 0.5 AST 32 ALT 34 Alkaline Phosphatase 81 Ammonia 27 Total Creatine Kinase 253 H Troponin I High Sens Total Protein 6.4 L Albumin 4.0 TSH Urine Color Urine Appearance Urine pH Ur Specific [place] Urine Protein Urine Glucose (UA) Urine Ketones Urine Blood Urine Nitrite Ur Leukocyte Esterase Urine Opiates Screen Urine Fentanyl Screen Acetaminophen < 1 Ur Barbiturates Screen Ur Phencyclidine Scrn Ur Amphetamines Screen U Benzodiazepines Scrn Urine Cocaine Screen U Marijuana (THC) Screen Ethyl Alcohol COVID-19 (ANDRE) Negative COVID-19 [employer] See Note 03/16/21 03/16/21 03/16/21 16:59 16:59 16:59 WBC RBC Hgb Hct MCV MCH MCHC RDW Plt Count MPV Immature Gran % (Auto) Neut % (Auto) Lymph % (Auto) [place] % (Auto) Eos % (Auto) Baso % (Auto) Lymph # (Auto) [place] # (Auto) Eos # (Auto) Baso # (Auto) Abs Immat Gran (auto) Absolute Neuts (auto) Absolute Nucleated RBC Nucleated RBC % (auto) VBG pH VBG pCO2 VBG pO2 VBG HCO3 VBG O2 Saturation VBG Base Excess Sodium Potassium Chloride Carbon Dioxide Anion Gap BUN Creatinine Estim Creat Clear Calc Estimated GFR POC Glucose Random Glucose Lactic Acid 2.3 H* Calcium Magnesium Total Bilirubin Direct Bilirubin AST ALT Alkaline Phosphatase Ammonia Total Creatine Kinase Troponin I High Sens 10.1 Total Protein Albumin TSH 1.77 Urine Color Urine Appearance Urine pH Ur Specific [place] Urine Protein Urine Glucose (UA) Urine Ketones Urine Blood Urine Nitrite Ur Leukocyte Esterase Urine Opiates Screen Urine Fentanyl Screen Acetaminophen Ur Barbiturates Screen Ur Phencyclidine Scrn Ur Amphetamines Screen U Benzodiazepines Scrn Urine Cocaine Screen U Marijuana (THC) Screen Ethyl Alcohol COVID-19 (ANDRE) [employer] 03/16/21 03/16/21 03/16/21 16:59 17:05 17:29 WBC RBC Hgb Hct MCV MCH MCHC RDW Plt Count MPV Immature Gran % (Auto) Neut % (Auto) Lymph % (Auto) [place] % (Auto) Eos % (Auto) Baso % (Auto) Lymph # (Auto) [place] # (Auto) Eos # (Auto) Baso # (Auto) Abs Immat Gran (auto) Absolute Neuts (auto) Absolute Nucleated RBC Nucleated RBC % (auto) VBG pH 7.36 VBG pCO2 37 VBG pO2 47 VBG HCO3 21 L VBG O2 Saturation 69.0 VBG Base Excess -3.1 Sodium Potassium Chloride Carbon Dioxide Anion Gap BUN Creatinine Estim Creat Clear Calc Estimated GFR POC Glucose Random Glucose Lactic Acid Calcium Magnesium Total Bilirubin Direct Bilirubin AST ALT Alkaline Phosphatase Ammonia Total Creatine Kinase Troponin I High Sens Total Protein Albumin TSH Urine Color YELLOW Urine Appearance CLEAR Urine pH 6.0 Ur Specific [place] >= 1.030 H Urine Protein NEG Urine Glucose (UA) NEG Urine Ketones 5 Urine Blood NEG Urine Nitrite NEG Ur Leukocyte Esterase NEG Urine Opiates Screen Urine Fentanyl Screen Acetaminophen Ur Barbiturates Screen Ur Phencyclidine Scrn Ur Amphetamines Screen U Benzodiazepines Scrn Urine Cocaine Screen U Marijuana (THC) Screen Ethyl Alcohol < 10 COVID-19 (ANDRE) COVID-19 [employer] 03/16/21 03/16/21 03/16/21 17:29 17:37 19:10 WBC RBC Hgb Hct MCV MCH MCHC RDW Plt Count MPV Immature Gran % (Auto) Neut % (Auto) Lymph % (Auto) [place] % (Auto) Eos % (Auto) Baso % (Auto) Lymph # (Auto) [place] # (Auto) Eos # (Auto) Baso # (Auto) Abs Immat Gran (auto) Absolute Neuts (auto) Absolute Nucleated RBC Nucleated RBC % (auto) VBG pH VBG pCO2 VBG pO2 VBG HCO3 VBG O2 Saturation VBG Base Excess Sodium Potassium Chloride Carbon Dioxide Anion Gap BUN Creatinine Estim Creat Clear Calc Estimated GFR POC Glucose 94 Random Glucose Lactic Acid 1.5 Calcium Magnesium Total Bilirubin Direct Bilirubin AST ALT Alkaline Phosphatase Ammonia Total Creatine Kinase Troponin I High Sens Total Protein Albumin TSH Urine Color Urine Appearance Urine pH Ur Specific [place] Urine Protein Urine Glucose (UA) Urine Ketones Urine Blood Urine Nitrite Ur Leukocyte Esterase Urine Opiates Screen Not Detected Urine Fentanyl Screen Not Detected Acetaminophen Ur Barbiturates Screen Not Detected Ur Phencyclidine Scrn Not Detected Ur Amphetamines Screen Not Detected U Benzodiazepines Scrn Not Detected Urine Cocaine Screen Not Detected U Marijuana (THC) Screen Not Detected Ethyl Alcohol COVID-19 (ANDRE) COVID-19 [employer] 03/16/21 03/17/21 03/17/21 19:42 00:53 02:46 WBC 8.7 RBC 4.48 L Hgb 13.6 L Hct 40.5 L MCV 90.4 MCH 30.4 MCHC 33.6 RDW 13.8 Plt Count 205 MPV 9.0 L Immature Gran % (Auto) 0.3 Neut % (Auto) 83.2 H Lymph % (Auto) 7.5 L [place] % (Auto) 6.9 Eos % (Auto) 1.6 Baso % (Auto) 0.5 Lymph # (Auto) 0.7 L [place] # (Auto) 0.6 Eos # (Auto) 0.1 Baso # (Auto) 0.0 Abs Immat Gran (auto) 0.03 Absolute Neuts (auto) 7.2 Absolute Nucleated RBC 0.000 Nucleated RBC % (auto) 0.0 VBG pH VBG pCO2 VBG pO2 VBG HCO3 VBG O2 Saturation VBG Base Excess Sodium Potassium Chloride Carbon Dioxide Anion Gap BUN Creatinine Estim Creat Clear Calc Estimated GFR POC Glucose 66 Random Glucose Lactic Acid Calcium Magnesium Total Bilirubin Direct Bilirubin AST ALT Alkaline Phosphatase Ammonia Total Creatine Kinase Troponin I High Sens 10.7 Total Protein Albumin TSH Urine Color Urine Appearance Urine pH Ur Specific [place] Urine Protein Urine Glucose (UA) Urine Ketones Urine Blood Urine Nitrite Ur Leukocyte Esterase Urine Opiates Screen Urine Fentanyl Screen Acetaminophen Ur Barbiturates Screen Ur Phencyclidine Scrn Ur Amphetamines Screen U Benzodiazepines Scrn Urine Cocaine Screen U Marijuana (THC) Screen Ethyl Alcohol COVID-19 (ANDRE) COVID-19 Clin Com 03/17/21 03/17/21 03/18/21 03:46 06:27 06:02 WBC RBC Hgb Hct MCV MCH MCHC RDW Plt Count MPV Immature Gran % (Auto) Neut % (Auto) Lymph % (Auto) [place] % (Auto) Eos % (Auto) Baso % (Auto) Lymph # (Auto) [place] # (Auto) Eos # (Auto) Baso # (Auto) Abs Immat Gran (auto) Absolute Neuts (auto) Absolute Nucleated RBC Nucleated RBC % (auto) VBG pH VBG pCO2 VBG pO2 VBG HCO3 VBG O2 Saturation VBG Base Excess Sodium Potassium Chloride Carbon Dioxide Anion Gap BUN Creatinine Estim Creat Clear Calc Estimated GFR POC Glucose 75 122 H 109 Random Glucose Lactic Acid Calcium Magnesium Total Bilirubin Direct Bilirubin AST ALT Alkaline Phosphatase Ammonia Total Creatine Kinase Troponin I High Sens Total Protein Albumin TSH Urine Color Urine Appearance Urine pH Ur Specific [place] Urine Protein Urine Glucose (UA) Urine Ketones Urine Blood Urine Nitrite Ur Leukocyte Esterase Urine Opiates Screen Urine Fentanyl Screen Acetaminophen Ur Barbiturates Screen Ur Phencyclidine Scrn Ur Amphetamines Screen U Benzodiazepines Scrn Urine Cocaine Screen U Marijuana (THC) Screen Ethyl Alcohol COVID-19 (ANDRE) COVID-19 [employer] 03/18/21 03/22/21 03/23/21 07:10 22:05 08:19 WBC RBC Hgb Hct MCV MCH MCHC RDW Plt Count MPV Immature Gran % (Auto) Neut % (Auto) Lymph % (Auto) [place] % (Auto) Eos % (Auto) Baso % (Auto) Lymph # (Auto) [place] # (Auto) Eos # (Auto) Baso # (Auto) Abs Immat Gran (auto) Absolute Neuts (auto) Absolute Nucleated RBC Nucleated RBC % (auto) VBG pH VBG pCO2 VBG pO2 VBG HCO3 VBG O2 Saturation VBG Base Excess Sodium Potassium Chloride Carbon Dioxide Anion Gap BUN Creatinine Estim Creat Clear Calc Estimated GFR POC Glucose 102 161 H 164 H Random Glucose Lactic Acid Calcium Magnesium Total Bilirubin Direct Bilirubin AST ALT Alkaline Phosphatase Ammonia Total Creatine Kinase Troponin I High Sens Total Protein Albumin TSH Urine Color Urine Appearance Urine pH Ur Specific [place] Urine Protein Urine Glucose (UA) Urine Ketones Urine Blood Urine Nitrite Ur Leukocyte Esterase Urine Opiates Screen Urine Fentanyl Screen Acetaminophen Ur Barbiturates Screen Ur Phencyclidine Scrn Ur Amphetamines Screen U Benzodiazepines Scrn Urine Cocaine Screen U Marijuana (THC) Screen Ethyl Alcohol COVID-19 (ANDRE) COVID-19 [employer] 03/23/21 03/24/21 03/24/21 23:21 07:58 10:23 WBC RBC Hgb Hct MCV MCH MCHC RDW Plt Count MPV Immature Gran % (Auto) Neut % (Auto) Lymph % (Auto) [place] % (Auto) Eos % (Auto) Baso % (Auto) Lymph # (Auto) [place] # (Auto) Eos # (Auto) Baso # (Auto) Abs Immat Gran (auto) Absolute Neuts (auto) Absolute Nucleated RBC Nucleated RBC % (auto) VBG pH VBG pCO2 VBG pO2 VBG HCO3 VBG O2 Saturation VBG Base Excess Sodium Potassium Chloride Carbon Dioxide Anion Gap BUN Creatinine 1.07 Estim Creat Clear Calc 49.4 Estimated GFR > 60 POC Glucose 102 171 H Random Glucose Lactic Acid Calcium Magnesium Total Bilirubin Direct Bilirubin AST ALT Alkaline Phosphatase Ammonia Total Creatine Kinase Troponin I High Sens Total Protein Albumin TSH Urine Color Urine Appearance Urine pH Ur Specific [place] Urine Protein Urine Glucose (UA) Urine Ketones Urine Blood Urine Nitrite Ur Leukocyte Esterase Urine Opiates Screen Urine Fentanyl Screen Acetaminophen Ur Barbiturates Screen Ur Phencyclidine Scrn Ur Amphetamines Screen U Benzodiazepines Scrn Urine Cocaine Screen U Marijuana (THC) Screen Ethyl Alcohol COVID-19 (ANDRE) COVID-19 [employer] 03/24/21 03/25/21 03/25/21 21:07 10:07 21:03 WBC RBC Hgb Hct MCV MCH MCHC RDW Plt Count MPV Immature Gran % (Auto) Neut % (Auto) Lymph % (Auto) [place] % (Auto) Eos % (Auto) Baso % (Auto) Lymph # (Auto) [place] # (Auto) Eos # (Auto) Baso # (Auto) Abs Immat Gran (auto) Absolute Neuts (auto) Absolute Nucleated RBC Nucleated RBC % (auto) VBG pH VBG pCO2 VBG pO2 VBG HCO3 VBG O2 Saturation VBG Base Excess Sodium Potassium Chloride Carbon Dioxide Anion Gap BUN Creatinine Estim Creat Clear Calc Estimated GFR POC Glucose 150 H 265 H 134 H Random Glucose Lactic Acid Calcium Magnesium Total Bilirubin Direct Bilirubin AST ALT Alkaline Phosphatase Ammonia Total Creatine Kinase Troponin I High Sens Total Protein Albumin TSH Urine Color Urine Appearance Urine pH Ur Specific [place] Urine Protein Urine Glucose (UA) Urine Ketones Urine Blood Urine Nitrite Ur Leukocyte Esterase Urine Opiates Screen Urine Fentanyl Screen Acetaminophen Ur Barbiturates Screen Ur Phencyclidine Scrn Ur Amphetamines Screen U Benzodiazepines Scrn Urine Cocaine Screen U Marijuana (THC) Screen Ethyl Alcohol COVID-19 (ANDRE) COVID-19 [employer] 03/27/21 03/27/21 03/28/21 10:49 20:19 10:44 WBC RBC Hgb Hct MCV MCH MCHC RDW Plt Count MPV Immature Gran % (Auto) Neut % (Auto) Lymph % (Auto) [place] % (Auto) Eos % (Auto) Baso % (Auto) Lymph # (Auto) [place] # (Auto) Eos # (Auto) Baso # (Auto) Abs Immat Gran (auto) Absolute Neuts (auto) Absolute Nucleated RBC Nucleated RBC % (auto) VBG pH VBG pCO2 VBG pO2 VBG HCO3 VBG O2 Saturation VBG Base Excess Sodium Potassium Chloride Carbon Dioxide Anion Gap BUN Creatinine Estim Creat Clear Calc Estimated GFR POC Glucose 179 H 160 H 203 H Random Glucose Lactic Acid Calcium Magnesium Total Bilirubin Direct Bilirubin AST ALT Alkaline Phosphatase Ammonia Total Creatine Kinase Troponin I High Sens Total Protein Albumin TSH Urine Color Urine Appearance Urine pH Ur Specific [place] Urine Protein Urine Glucose (UA) Urine Ketones Urine Blood Urine Nitrite Ur Leukocyte Esterase Urine Opiates Screen Urine Fentanyl Screen Acetaminophen Ur Barbiturates Screen Ur Phencyclidine Scrn Ur Amphetamines Screen U Benzodiazepines Scrn Urine Cocaine Screen U Marijuana (THC) Screen Ethyl Alcohol COVID-19 (ANDRE) COVID-19 [employer] 03/28/21 03/29/21 03/29/21 21:46 07:40 20:39 WBC RBC Hgb Hct MCV MCH MCHC RDW Plt Count MPV Immature Gran % (Auto) Neut % (Auto) Lymph % (Auto) [place] % (Auto) Eos % (Auto) Baso % (Auto) Lymph # (Auto) [place] # (Auto) Eos # (Auto) Baso # (Auto) Abs Immat Gran (auto) Absolute Neuts (auto) Absolute Nucleated RBC Nucleated RBC % (auto) VBG pH VBG pCO2 VBG pO2 VBG HCO3 VBG O2 Saturation VBG Base Excess Sodium Potassium Chloride Carbon Dioxide Anion Gap BUN Creatinine Estim Creat Clear Calc Estimated GFR POC Glucose 176 H 147 H 205 H Random Glucose Lactic Acid Calcium Magnesium Total Bilirubin Direct Bilirubin AST ALT Alkaline Phosphatase Ammonia Total Creatine Kinase Troponin I High Sens Total Protein Albumin TSH Urine Color Urine Appearance Urine pH Ur Specific [place] Urine Protein Urine Glucose (UA) Urine Ketones Urine Blood Urine Nitrite Ur Leukocyte Esterase Urine Opiates Screen Urine Fentanyl Screen Acetaminophen Ur Barbiturates Screen Ur Phencyclidine Scrn Ur Amphetamines Screen U Benzodiazepines Scrn Urine Cocaine Screen U Marijuana (THC) Screen Ethyl Alcohol COVID-19 (ANDRE) [employer] 03/30/21 03/30/21 03/30/21 07:42 08:02 21:33 WBC RBC Hgb Hct MCV MCH MCHC RDW Plt Count MPV Immature Gran % (Auto) Neut % (Auto) Lymph % (Auto) [place] % (Auto) Eos % (Auto) Baso % (Auto) Lymph # (Auto) [place] # (Auto) Eos # (Auto) Baso # (Auto) Abs Immat Gran (auto) Absolute Neuts (auto) Absolute Nucleated RBC Nucleated RBC % (auto) VBG pH VBG pCO2 VBG pO2 VBG HCO3 VBG O2 Saturation VBG Base Excess Sodium 138 Potassium 4.7 Chloride 106 Carbon Dioxide 26 Anion Gap 11 L BUN 17 H Creatinine 0.92 Estim Creat Clear Calc 57.5 Estimated GFR > 60 POC Glucose 137 H 211 H Random Glucose 169 H D Lactic Acid Calcium 10.3 H Magnesium Total Bilirubin Direct Bilirubin AST ALT Alkaline Phosphatase Ammonia Total Creatine Kinase Troponin I High Sens Total Protein Albumin TSH Urine Color Urine Appearance Urine pH Ur Specific [place] Urine Protein Urine Glucose (UA) Urine Ketones Urine Blood Urine Nitrite Ur Leukocyte Esterase Urine Opiates Screen Urine Fentanyl Screen Acetaminophen Ur Barbiturates Screen Ur Phencyclidine Scrn Ur Amphetamines Screen U Benzodiazepines Scrn Urine Cocaine Screen U Marijuana (THC) Screen Ethyl Alcohol COVID-19 (ANDRE) COVID-19 [employer] 03/31/21 03/31/21 04/01/21 07:31 19:52 07:59 WBC RBC Hgb Hct MCV MCH MCHC RDW Plt Count MPV Immature Gran % (Auto) Neut % (Auto) Lymph % (Auto) [place] % (Auto) Eos % (Auto) Baso % (Auto) Lymph # (Auto) [place] # (Auto) Eos # (Auto) Baso # (Auto) Abs Immat Gran (auto) Absolute Neuts (auto) Absolute Nucleated RBC Nucleated RBC % (auto) VBG pH VBG pCO2 VBG pO2 VBG HCO3 VBG O2 Saturation VBG Base Excess Sodium Potassium Chloride Carbon Dioxide Anion Gap BUN Creatinine Estim Creat Clear Calc Estimated GFR POC Glucose 139 H 190 H 150 H Random Glucose Lactic Acid Calcium Magnesium Total Bilirubin Direct Bilirubin AST ALT Alkaline Phosphatase Ammonia Total Creatine Kinase Troponin I High Sens Total Protein Albumin TSH Urine Color Urine Appearance Urine pH Ur Specific [place] Urine Protein Urine Glucose (UA) Urine Ketones Urine Blood Urine Nitrite Ur Leukocyte Esterase Urine Opiates Screen Urine Fentanyl Screen Acetaminophen Ur Barbiturates Screen Ur Phencyclidine Scrn Ur Amphetamines Screen U Benzodiazepines Scrn Urine Cocaine Screen U Marijuana (THC) Screen Ethyl Alcohol COVID-19 (ANDRE) COVID-[employer] 04/01/21 04/01/21 04/02/21 09:41 20:42 08:04 WBC RBC Hgb Hct MCV MCH MCHC RDW Plt Count MPV Immature Gran % (Auto) Neut % (Auto) Lymph % (Auto) [place] % (Auto) Eos % (Auto) Baso % (Auto) Lymph # (Auto) [place] # (Auto) Eos # (Auto) Baso # (Auto) Abs Immat Gran (auto) Absolute Neuts (auto) Absolute Nucleated RBC Nucleated RBC % (auto) VBG pH VBG pCO2 VBG pO2 VBG HCO3 VBG O2 Saturation VBG Base Excess Sodium 138 Potassium 4.6 Chloride 105 Carbon Dioxide 27 Anion Gap 11 L BUN 17 H Creatinine 0.92 Estim Creat Clear Calc 57.5 Estimated GFR > 60 POC Glucose 170 H 149 H Random Glucose 216 H Lactic Acid Calcium 9.6 D Magnesium Total Bilirubin Direct Bilirubin AST ALT Alkaline Phosphatase Ammonia Total Creatine Kinase Troponin I High Sens Total Protein Albumin TSH Urine Color Urine Appearance Urine pH Ur Specific [place] Urine Protein Urine Glucose (UA) Urine Ketones Urine Blood Urine Nitrite Ur Leukocyte Esterase Urine Opiates Screen Urine Fentanyl Screen Acetaminophen Ur Barbiturates Screen Ur Phencyclidine Scrn Ur Amphetamines Screen U Benzodiazepines Scrn Urine Cocaine Screen U Marijuana (THC) Screen Ethyl Alcohol COVID-19 (ANDRE) [email or web address] 04/02/21 04/03/21 04/03/21 22:21 14:05 22:18 WBC RBC Hgb Hct MCV MCH MCHC RDW Plt Count MPV Immature Gran % (Auto) Neut % (Auto) Lymph % (Auto) [place] % (Auto) Eos % (Auto) Baso % (Auto) Lymph # (Auto) [place] # (Auto) Eos # (Auto) Baso # (Auto) Abs Immat Gran (auto) Absolute Neuts (auto) Absolute Nucleated RBC Nucleated RBC % (auto) VBG pH VBG pCO2 VBG pO2 VBG HCO3 VBG O2 Saturation VBG Base Excess Sodium Potassium Chloride Carbon Dioxide Anion Gap BUN Creatinine Estim Creat Clear Calc Estimated GFR POC Glucose 217 H 136 H 177 H Random Glucose Lactic Acid Calcium Magnesium Total Bilirubin Direct Bilirubin AST ALT Alkaline Phosphatase Ammonia Total Creatine Kinase Troponin I High Sens Total Protein Albumin TSH Urine Color Urine Appearance Urine pH Ur Specific [place] Urine Protein Urine Glucose (UA) Urine Ketones Urine Blood Urine Nitrite Ur Leukocyte Esterase Urine Opiates Screen Urine Fentanyl Screen Acetaminophen Ur Barbiturates Screen Ur Phencyclidine Scrn Ur Amphetamines Screen U Benzodiazepines Scrn Urine Cocaine Screen U Marijuana (THC) Screen Ethyl Alcohol COVID-19 (ANDRE) [employer] 04/04/21 04/04/21 04/05/21 11:08 20:14 05:23 WBC RBC Hgb Hct MCV MCH MCHC RDW Plt Count MPV Immature Gran % (Auto) Neut % (Auto) Lymph % (Auto) Mcnairy % (Auto) Eos % (Auto) Baso % (Auto) Lymph # (Auto) Mcnairy # (Auto) Eos # (Auto) Baso # (Auto) Abs Immat Gran (auto) Absolute Neuts (auto) Absolute Nucleated RBC Nucleated RBC % (auto) VBG pH VBG pCO2 VBG pO2 VBG HCO3 VBG O2 Saturation VBG Base Excess Sodium Potassium Chloride Carbon Dioxide Anion Gap BUN Creatinine Estim Creat Clear Calc Estimated GFR POC Glucose 132 H 152 H 127 H Random Glucose Lactic Acid Calcium Magnesium Total Bilirubin Direct Bilirubin AST ALT Alkaline Phosphatase Ammonia Total Creatine Kinase Troponin I High Sens Total Protein Albumin TSH Urine Color Urine Appearance Urine pH Ur Specific [place] Urine Protein Urine Glucose (UA) Urine Ketones Urine Blood Urine Nitrite Ur Leukocyte Esterase Urine Opiates Screen Urine Fentanyl Screen Acetaminophen Ur Barbiturates Screen Ur Phencyclidine Scrn Ur Amphetamines Screen U Benzodiazepines Scrn Urine Cocaine Screen U Marijuana (THC) Screen Ethyl Alcohol COVID-19 (ANDRE) [employer] 04/05/21 04/05/21 04/06/21 17:24 20:39 20:36 WBC RBC Hgb Hct MCV MCH MCHC RDW Plt Count MPV Immature Gran % (Auto) Neut % (Auto) Lymph % (Auto) Mcnairy % (Auto) Eos % (Auto) Baso % (Auto) Lymph # (Auto) Mcnairy # (Auto) Eos # (Auto) Baso # (Auto) Abs Immat Gran (auto) Absolute Neuts (auto) Absolute Nucleated RBC Nucleated RBC % (auto) VBG pH VBG pCO2 VBG pO2 VBG HCO3 VBG O2 Saturation VBG Base Excess Sodium Potassium Chloride Carbon Dioxide Anion Gap BUN Creatinine Estim Creat Clear Calc Estimated GFR POC Glucose 159 H 157 H 143 H Random Glucose Lactic Acid Calcium Magnesium Total Bilirubin Direct Bilirubin AST ALT Alkaline Phosphatase Ammonia Total Creatine Kinase Troponin I High Sens Total Protein Albumin TSH Urine Color Urine Appearance Urine pH Ur Specific [place] Urine Protein Urine Glucose (UA) Urine Ketones Urine Blood Urine Nitrite Ur Leukocyte Esterase Urine Opiates Screen Urine Fentanyl Screen Acetaminophen Ur Barbiturates Screen Ur Phencyclidine Scrn Ur Amphetamines Screen U Benzodiazepines Scrn Urine Cocaine Screen U Marijuana (THC) Screen Ethyl Alcohol COVID-19 (ANDRE) [employer] 04/07/21 04/07/21 04/08/21 09:16 21:21 07:05 WBC RBC Hgb Hct MCV MCH MCHC RDW Plt Count MPV Immature Gran % (Auto) Neut % (Auto) Lymph % (Auto) Mcnairy % (Auto) Eos % (Auto) Baso % (Auto) Lymph # (Auto) Mcnairy # (Auto) Eos # (Auto) Baso # (Auto) Abs Immat Gran (auto) Absolute Neuts (auto) Absolute Nucleated RBC Nucleated RBC % (auto) VBG pH VBG pCO2 VBG pO2 VBG HCO3 VBG O2 Saturation VBG Base Excess Sodium Potassium Chloride Carbon Dioxide Anion Gap BUN Creatinine 0.85 Estim Creat Clear Calc 62.3 Estimated GFR > 60 POC Glucose 203 H 156 H Random Glucose Lactic Acid Calcium Magnesium Total Bilirubin Direct Bilirubin AST ALT Alkaline Phosphatase Ammonia Total Creatine Kinase Troponin I High Sens Total Protein Albumin TSH Urine Color Urine Appearance Urine pH Ur Specific [place] Urine Protein Urine Glucose (UA) Urine Ketones Urine Blood Urine Nitrite Ur Leukocyte Esterase Urine Opiates Screen Urine Fentanyl Screen Acetaminophen Ur Barbiturates Screen Ur Phencyclidine Scrn Ur Amphetamines Screen U Benzodiazepines Scrn Urine Cocaine Screen U Marijuana (THC) Screen Ethyl Alcohol COVID-19 (ANDRE) COVID-19 [employer] 04/08/21 04/09/21 04/09/21 09:06 05:34 21:02 WBC RBC Hgb Hct MCV MCH MCHC RDW Plt Count MPV Immature Gran % (Auto) Neut % (Auto) Lymph % (Auto) Mcnairy % (Auto) Eos % (Auto) Baso % (Auto) Lymph # (Auto) Mcnairy # (Auto) Eos # (Auto) Baso # (Auto) Abs Immat Gran (auto) Absolute Neuts (auto) Absolute Nucleated RBC Nucleated RBC % (auto) VBG pH VBG pCO2 VBG pO2 VBG HCO3 VBG O2 Saturation VBG Base Excess Sodium Potassium Chloride Carbon Dioxide Anion Gap BUN Creatinine Estim Creat Clear Calc Estimated GFR POC Glucose 208 H 102 164 H Random Glucose Lactic Acid Calcium Magnesium Total Bilirubin Direct Bilirubin AST ALT Alkaline Phosphatase Ammonia Total Creatine Kinase Troponin I High Sens Total Protein Albumin TSH Urine Color Urine Appearance Urine pH Ur Specific [place] Urine Protein Urine Glucose (UA) Urine Ketones Urine Blood Urine Nitrite Ur Leukocyte Esterase Urine Opiates Screen Urine Fentanyl Screen Acetaminophen Ur Barbiturates Screen Ur Phencyclidine Scrn Ur Amphetamines Screen U Benzodiazepines Scrn Urine Cocaine Screen U Marijuana (THC) Screen Ethyl Alcohol COVID-19 (ANDRE) COVID-19 [employer] 04/11/21 04/12/21 04/12/21 21:16 06:24 20:41 WBC RBC Hgb Hct MCV MCH MCHC RDW Plt Count MPV Immature Gran % (Auto) Neut % (Auto) Lymph % (Auto) Mcnairy % (Auto) Eos % (Auto) Baso % (Auto) Lymph # (Auto) Mcnairy # (Auto) Eos # (Auto) Baso # (Auto) Abs Immat Gran (auto) Absolute Neuts (auto) Absolute Nucleated RBC Nucleated RBC % (auto) VBG pH VBG pCO2 VBG pO2 VBG HCO3 VBG O2 Saturation VBG Base Excess Sodium Potassium Chloride Carbon Dioxide Anion Gap BUN Creatinine Estim Creat Clear Calc Estimated GFR POC Glucose 143 H 117 H 110 Random Glucose Lactic Acid Calcium Magnesium Total Bilirubin Direct Bilirubin AST ALT Alkaline Phosphatase Ammonia Total Creatine Kinase Troponin I High Sens Total Protein Albumin TSH Urine Color Urine Appearance Urine pH Ur Specific [place] Urine Protein Urine Glucose (UA) Urine Ketones Urine Blood Urine Nitrite Ur Leukocyte Esterase Urine Opiates Screen Urine Fentanyl Screen Acetaminophen Ur Barbiturates Screen Ur Phencyclidine Scrn Ur Amphetamines Screen U Benzodiazepines Scrn Urine Cocaine Screen U Marijuana (THC) Screen Ethyl Alcohol COVID-19 (ANDRE) COVID-19 [employer] 04/13/21 04/13/21 04/14/21 08:45 20:49 06:15 WBC RBC Hgb Hct MCV MCH MCHC RDW Plt Count MPV Immature Gran % (Auto) Neut % (Auto) Lymph % (Auto) Mcnairy % (Auto) Eos % (Auto) Baso % (Auto) Lymph # (Auto) Mcnairy # (Auto) Eos # (Auto) Baso # (Auto) Abs Immat Gran (auto) Absolute Neuts (auto) Absolute Nucleated RBC Nucleated RBC % (auto) VBG pH VBG pCO2 VBG pO2 VBG HCO3 VBG O2 Saturation VBG Base Excess Sodium Potassium Chloride Carbon Dioxide Anion Gap BUN Creatinine Estim Creat Clear Calc Estimated GFR POC Glucose 203 H 154 H 93 Random Glucose Lactic Acid Calcium Magnesium Total Bilirubin Direct Bilirubin AST ALT Alkaline Phosphatase Ammonia Total Creatine Kinase Troponin I High Sens Total Protein Albumin TSH Urine Color Urine Appearance Urine pH Ur Specific [place] Urine Protein Urine Glucose (UA) Urine Ketones Urine Blood Urine Nitrite Ur Leukocyte Esterase Urine Opiates Screen Urine Fentanyl Screen Acetaminophen Ur Barbiturates Screen Ur Phencyclidine Scrn Ur Amphetamines Screen U Benzodiazepines Scrn Urine Cocaine Screen U Marijuana (THC) Screen Ethyl Alcohol COVID-19 (ANDRE) COVID-19 Clin Com Airway Mallampati Class: II TM Dist: >3cm Neck ROM: Full Heart: rrr Assessment and Plan Assessment Anesthesia Assessment: Anesthesia Plan Discussed and Chart Reviewed Final Anesthetic Review Family History of Problems with Anesthesia: No History of Problems with Anesthesia: No NPO: Yes ASA Class: III Final Preanesthetic Review: No Changes in Pt Med Stat, Meds/Allgs Chart Reviewed and Consent Obtained/Reviewed Patient Risk: Intermediate Procedure Risk: Intermediate Anesthetic Plan Anesthetic Plan: GA Disposition: Standard PACU
--- NOTE | 2021-04-14 07:18 | MHC.SHP ---
Pre-Procedural Eval Section A Date of Service: 04/14/21 The patient is an INPATIENT: Yes Changes since office visit: Yes Changes in Medication and Yes Patient answered all questions; No Cold of Flu in the past 2 weeks and No New Medical Problems The History & Physical has been completed within 30 days and I have reviewed it.: Yes Section B Chief Complaint: Mood lability Allergies: Allergies Allergy/AdvReac Type Severity Reaction Status Date / Time metoprolol AdvReac Unknown bradycardia Verified 03/16/21 14:28 timolol AdvReac Unknown low bp Verified 03/16/21 14:28 tamsulosin [From Flomax] AdvReac Diarrhea Verified 03/22/21 13:42 beta blockers AdvReac Hypotension Uncoded 03/22/21 13:46 Plan I have reviewed the history and physical and performed a pertinent physical examination on my patient. No changes have occurred unless specified.
--- NOTE | 2021-04-14 07:57 | HO.ECTPROC ---
ECT Procedure Note Diagnosis/Treatment Date of Service: 04/14/21 Diagnosis: Major Depressive Disorder Previous ECT Date: 04/12/21 Current Treatment Number: 3 Treatment: Series Interval Clinical Notes: Pt feeling somewhat better no c/o side effects ECT Settings Device: THYMATRON DGx Electrode Placement: Right Unilateral Program/Pulse Width: 0.25 Energy Percent: 25 Seizure Duration By EEG (in seconds): 55 Medications Administration General Anesthetic: Etomidate (14) Muscle Relaxant: Succinylcholine (100) Ancillary Medications Analgesics: Torodol - Pre ECT Anti-emetics: Zofran - Pre ECT Miscillaneous Medications: Propofol (30) Airway Management Airway Management: Bag Mask Ventilation Treatment Recommendations No Changes Recommended: No change Notes: discussed option of maintenance ect Pt Tolerated Procedure w/o Issue: Yes
[2021-04-14] MEDS: buPROPion HCl XL 150 MG TAB.ER.24H PO (09:58)
[2021-04-14] MEDS: Finasteride 5 MG TABLET PO (09:58)
[2021-04-14] MEDS: Isosorbide Mononitrate 60 MG TAB.ER.24H PO (09:58)
[2021-04-14] MEDS: Atorvastatin Calcium 80 MG TABLET PO (09:59)
[2021-04-14] MEDS: Celecoxib 200 MG CAPSULE PO ×2 (09:59→20:57)
[2021-04-14] MEDS: metFORMIN HCl ER 500 MG TAB.ER.24H PO (09:59)
[2021-04-14] MEDS: Omeprazole 20 MG CAPSULE.DR PO (09:59)
--- NOTE | 2021-04-14 10:18 | PC.NURSE ---
Patient was back from PACU around 10:00. Patient reported no pain. He is alert, oriented x3. VT stable ( TA: 126/77, Pls: 55, Spo2: 94 , Temp:95.3 ). Continue to monitor .
--- NOTE | 2021-04-14 16:01 | HO.PSYCHPN ---
Subjective Subjective Date of Service: 04/14/21 Reason For Visit: Mood lability Subjective Notes: Conditional Voluntary Interim History: The nursing staff reports the patient is much better with a brighter affect. He had her CT last night. He had ECT today and after the procedure the patient was alert and oriented. On interview, the patient reports that he is feeling better. We had a family meeting with the addiction social worker will start working for discharge planning. Mental Status Exam Mental Status Exam Patient Appearance: Well Grooomed Patient Orientation: Person and Situation Level of Consciousness: Awake Patient Behavior: Cooperative Mood Description: Constricted Affect Description: Constricted Patient Cognition Impaired: Yes Ability to Follow Directions: Good Speech Pattern: Appropriate Hallucinations: None Thought Process: Goal Oriented Thought Content: positive for Circumstantial Judgement: Fair Diagnostics Vital Signs (24Hr): Vital Signs - 24 hr 04/13/21 20:50 04/13/21 20:51 04/14/21 06:15 Temperature 97.3 F Pulse Rate 60 60 62 Respiratory Rate 16 Blood Pressure 99/59 L 99/59 L 146/74 H Pulse Oximetry 96 04/14/21 06:19 04/14/21 06:46 04/14/21 08:00 Temperature 97.0 F 97.3 F Pulse Rate 62 55 55 Respiratory Rate 16 16 Blood Pressure 146/74 H 108/63 162/80 H Pulse Oximetry 96 99 04/14/21 08:05 04/14/21 08:10 04/14/21 08:15 Temperature Pulse Rate 55 55 55 Respiratory Rate 18 18 18 Blood Pressure 93/53 L 105/53 L 107/60 Pulse Oximetry 97 97 97 04/14/21 08:30 04/14/21 08:45 04/14/21 09:00 Temperature 97.4 F Pulse Rate 55 55 55 Respiratory Rate 16 16 17 Blood Pressure 121/64 124/67 110/62 Pulse Oximetry 97 94 96 04/14/21 09:58 04/14/21 10:12 Temperature 95.3 F L Pulse Rate 55 55 Respiratory Rate Blood Pressure 126/77 126/77 Pulse Oximetry 94 Body Mass Index 25.0 Labs Results: 03/16/21 19:42 04/08/21 07:05 Labs: Laboratory Results - last 48 hr 04/12/21 04/13/21 04/13/21 20:41 08:45 20:49 POC Glucose 110 203 H 154 H 04/14/21 06:15 POC Glucose 93 Imaging Radiology Impressions: ITS Impressions Cervical Spine CT 03/16/21 15:12 IMPRESSION: 1. No acute intracranial pathology. 2. No CT evidence of acute cervical spine fracture or traumatic subluxation 3. Irregular 1.5 cm lesion right upper lobe. This is chronic unchanged since CAT scan of December 03, 2019. Elbow X-Ray 03/16/21 15:12 IMPRESSION: Arthritis. No fracture or dislocation seen. EXAMINATION: Right elbow x-ray CLINICAL INFORMATION: Pain post fall COMPARISON: None. TECHNIQUE: 3 views of the right elbow FINDINGS: There is a comminuted displaced fracture of the olecranon. No other fracture is seen. Joint spaces are normal. There is an elbow joint effusion. There is soft tissue swelling over the fracture. IMPRESSION: Comminuted displaced fracture of the olecranon. EXAMINATION: Right shoulder x-ray CLINICAL INFORMATION: Pain post fall COMPARISON: None. TECHNIQUE: 3 views of the right shoulder FINDINGS: Bone alignment is normal. No fracture or dislocation is seen. The glenohumeral joint is normal. There is arthritis at the acromioclavicular joint. Soft tissues are unremarkable. IMPRESSION: Arthritis at the acromioclavicular joint. EXAMINATION: Chest x-ray CLINICAL INFORMATION: Pain post fall COMPARISON: Previous chest x-ray August 2016 TECHNIQUE: One view of the chest FINDINGS: The cardiac silhouette is slightly enlarged. Thoracic aorta is tortuous. The pulmonary tavon appear prominent. There is a new right subclavian dual chamber pacemaker. There is a small dense right upper lobe nodule that appears unchanged. The lungs are otherwise clear. There is no pleural effusion or pneumothorax. There are surgical clips in the left axilla. There are degenerative changes of the spine. IMPRESSION: No evidence for acute disease in the chest. Prominent pulmonary tavon questionable for enlarged pulmonary arteries versus lymphadenopathy. Head CT 03/16/21 15:12 IMPRESSION: 1. No acute intracranial pathology. 2. No CT evidence of acute cervical spine fracture or traumatic subluxation 3. Irregular 1.5 cm lesion right upper lobe. This is chronic unchanged since CAT scan of December 03, 2019. Shoulder X-Ray 03/16/21 15:12 IMPRESSION: Arthritis. No fracture or dislocation seen. EXAMINATION: Right elbow x-ray CLINICAL INFORMATION: Pain post fall COMPARISON: None. TECHNIQUE: 3 views of the right elbow FINDINGS: There is a comminuted displaced fracture of the olecranon. No other fracture is seen. Joint spaces are normal. There is an elbow joint effusion. There is soft tissue swelling over the fracture. IMPRESSION: Comminuted displaced fracture of the olecranon. EXAMINATION: Right shoulder x-ray CLINICAL INFORMATION: Pain post fall COMPARISON: None. TECHNIQUE: 3 views of the right shoulder FINDINGS: Bone alignment is normal. No fracture or dislocation is seen. The glenohumeral joint is normal. There is arthritis at the acromioclavicular joint. Soft tissues are unremarkable. IMPRESSION: Arthritis at the acromioclavicular joint. EXAMINATION: Chest x-ray CLINICAL INFORMATION: Pain post fall COMPARISON: Previous chest x-ray August 2016 TECHNIQUE: One view of the chest FINDINGS: The cardiac silhouette is slightly enlarged. Thoracic aorta is tortuous. The pulmonary tavon appear prominent. There is a new right subclavian dual chamber pacemaker. There is a small dense right upper lobe nodule that appears unchanged. The lungs are otherwise clear. There is no pleural effusion or pneumothorax. There are surgical clips in the left axilla. There are degenerative changes of the spine. IMPRESSION: No evidence for acute disease in the chest. Prominent pulmonary tavon questionable for enlarged pulmonary arteries versus lymphadenopathy. Wrist X-Ray 03/16/21 15:12 IMPRESSION: Arthritis. No fracture or dislocation seen. EXAMINATION: Right elbow x-ray CLINICAL INFORMATION: Pain post fall COMPARISON: None. TECHNIQUE: 3 views of the right elbow FINDINGS: There is a comminuted displaced fracture of the olecranon. No other fracture is seen. Joint spaces are normal. There is an elbow joint effusion. There is soft tissue swelling over the fracture. IMPRESSION: Comminuted displaced fracture of the olecranon. EXAMINATION: Right shoulder x-ray CLINICAL INFORMATION: Pain post fall COMPARISON: None. TECHNIQUE: 3 views of the right shoulder FINDINGS: Bone alignment is normal. No fracture or dislocation is seen. The glenohumeral joint is normal. There is arthritis at the acromioclavicular joint. Soft tissues are unremarkable. IMPRESSION: Arthritis at the acromioclavicular joint. EXAMINATION: Chest x-ray CLINICAL INFORMATION: Pain post fall COMPARISON: Previous chest x-ray August 2016 TECHNIQUE: One view of the chest FINDINGS: The cardiac silhouette is slightly enlarged. Thoracic aorta is tortuous. The pulmonary tavon appear prominent. There is a new right subclavian dual chamber pacemaker. There is a small dense right upper lobe nodule that appears unchanged. The lungs are otherwise clear. There is no pleural effusion or pneumothorax. There are surgical clips in the left axilla. There are degenerative changes of the spine. IMPRESSION: No evidence for acute disease in the chest. Prominent pulmonary tavon questionable for enlarged pulmonary arteries versus lymphadenopathy. Chest X-Ray 03/16/21 15:13 IMPRESSION: Arthritis. No fracture or dislocation seen. EXAMINATION: Right elbow x-ray CLINICAL INFORMATION: Pain post fall COMPARISON: None. TECHNIQUE: 3 views of the right elbow FINDINGS: There is a comminuted displaced fracture of the olecranon. No other fracture is seen. Joint spaces are normal. There is an elbow joint effusion. There is soft tissue swelling over the fracture. IMPRESSION: Comminuted displaced fracture of the olecranon. EXAMINATION: Right shoulder x-ray CLINICAL INFORMATION: Pain post fall COMPARISON: None. TECHNIQUE: 3 views of the right shoulder FINDINGS: Bone alignment is normal. No fracture or dislocation is seen. The glenohumeral joint is normal. There is arthritis at the acromioclavicular joint. Soft tissues are unremarkable. IMPRESSION: Arthritis at the acromioclavicular joint. EXAMINATION: Chest x-ray CLINICAL INFORMATION: Pain post fall COMPARISON: Previous chest x-ray August 2016 TECHNIQUE: One view of the chest FINDINGS: The cardiac silhouette is slightly enlarged. Thoracic aorta is tortuous. The pulmonary tavon appear prominent. There is a new right subclavian dual chamber pacemaker. There is a small dense right upper lobe nodule that appears unchanged. The lungs are otherwise clear. There is no pleural effusion or pneumothorax. There are surgical clips in the left axilla. There are degenerative changes of the spine. IMPRESSION: No evidence for acute disease in the chest. Prominent pulmonary tavon questionable for enlarged pulmonary arteries versus lymphadenopathy. Elbow X-Ray 03/25/21 14:11 IMPRESSION: No change in the comminuted displaced olecranon fracture. Knee X-Ray 04/01/21 11:28 IMPRESSION: Moderate to large joint effusion and degenerative changes. Elbow X-Ray 04/01/21 13:59 IMPRESSION: Comminuted fracture proximal olecranon. Medications Medications Current Medications Acetaminophen (Acetaminophen 325 Mg Tablet) 650 mg PO Q6H PRN PRN Reason: Headache/Pain Mild Scale (1-3) Last Admin: 03/31/21 23:54 Dose: 650 mg Documented by: Acetaminophen (Acetaminophen 325 Mg Tablet) 650 mg PO Q6H PRN PRN Reason: Headache/Pain Mild Scale (1-3) Acetaminophen (Acetaminophen 325 Mg Tablet) 650 mg PO ONCE PRN PRN Reason: Pain, Mild (Pain Scale 1-3) Al Hydroxide/Mg Hydroxide (Magnesium Hydrox/Alum Hydrox 30 Ml Oral.Susp) 30 ml PO Q6H PRN PRN Reason: Heartburn/Nausea Alendronate Sodium (Alendronate Sodium 70 Mg Tablet) 70 mg PO SA [facility] Last Admin: 04/10/21 09:10 Dose: 70 mg Documented by: Amlodipine Besylate (Amlodipine Besylate 2.5 Mg Tablet) 2.5 mg PO BEDTIME [facility]; Protocol Last Admin: 04/13/21 20:50 Dose: 2.5 mg Documented by: Atorvastatin Calcium (Atorvastatin Calcium 80 Mg Tablet) 80 mg PO DAILY [facility] Last Admin: 04/14/21 09:59 Dose: 80 mg Documented by: Bupropion HCl (Bupropion Hcl Xl 150 Mg Tab.Er.24h) 150 mg PO DAILY [facility] Last Admin: 04/14/21 09:58 Dose: 150 mg Documented by: Celecoxib (Celecoxib 200 Mg Capsule) 200 mg PO BID [facility] Last Admin: 04/14/21 09:59 Dose: 200 mg Documented by: Finasteride (Finasteride 5 Mg Tablet) 5 mg PO DAILY [facility] Last Admin: 04/14/21 09:58 Dose: 5 mg Documented by: Hydroxyzine HCl (Hydroxyzine Hcl 25 Mg Tablet) 25 mg PO Q6H PRN PRN Reason: Anxiety Last Admin: 04/03/21 20:15 Dose: 25 mg Documented by: Isosorbide Mononitrate (Isosorbide Mononitrate 60 Mg Tab.Er.24h) 60 mg PO DAILY [facility]; Protocol Last Admin: 04/14/21 09:58 Dose: 60 mg Documented by: Magnesium Hydroxide (Milk Of Magnesia 30 Ml Oral.Susp) 30 ml PO DAILY PRN PRN Reason: Constipation Magnesium Hydroxide (Milk Of Magnesia 30 Ml Oral.Susp) 30 ml PO DAILY PRN PRN Reason: Constipation Melatonin (Melatonin 3 Mg Tablet) 3 mg PO BEDTIME PRN PRN Reason: insomnia Last Admin: 04/08/21 01:54 Dose: 3 mg Documented by: Metformin HCl (Metformin Hcl Er 500 Mg Tab.Er.24h) 500 mg PO DAILY [facility] Last Admin: 04/14/21 09:59 Dose: 500 mg Documented by: Metoprolol Tartrate (Metoprolol Tartrate 12.5 Mg Halftab) 12.5 mg PO BID [facility]; Protocol Last Admin: 04/14/21 06:19 Dose: 12.5 mg Documented by: Patient Own Med ( Alfuzosin Hcl Er 10mg) 1 each PO BEDTIME [facility] Last Admin: 04/13/21 20:51 Dose: 1 each Documented by: Patient Own Med ( (Lumigan 0.01% Soln)) 1 each EYE-BOTH BEDTIME [facility] Last Admin: 04/13/21 20:51 Dose: 1 each Documented by: Olanzapine (Olanzapine 10 Mg Tablet) 10 mg PO BEDTIME [facility] Last Admin: 04/13/21 20:51 Dose: 10 mg Documented by: Omeprazole (Omeprazole 20 Mg Capsule.Dr) 20 mg PO DAILY@0630 [facility] Last Admin: 04/14/21 09:59 Dose: 20 mg Documented by: Pharmacy Consult (Consult Rx Perform Med Rec) 1 each MISCELLANE ONCE PRN PRN Reason: Consult order Pharmacy Consult (Consult Rx Perform Med Rec) 1 each MISCELLANE ONCE PRN PRN Reason: Consult order Trazodone HCl (Trazodone Hcl 50 Mg Tablet) 50 mg PO BEDTIME PRN PRN Reason: Insomnia Last Admin: 03/20/21 01:20 Dose: 50 mg Documented by: Allergies Allergies Allergy/AdvReac Type Severity Reaction Status Date / Time metoprolol AdvReac Unknown bradycardia Verified 03/16/21 14:28 timolol AdvReac Unknown low bp Verified 03/16/21 14:28 tamsulosin [From Flomax] AdvReac Diarrhea Verified 03/22/21 13:42 beta blockers AdvReac Hypotension Uncoded 03/22/21 13:46 Assessment & Plan Assessment & Plan (1) Bipolar disorder: Status: Acute Code(s): F31.9 - Bipolar disorder, unspecified Assessment and Plan: 80-year-old male with a history of bipolar disease and dementia, admitted for exacerbation of mixed symptoms elicited by hypomania and severe depression. Plan 1. Continue same medications. 2. ECT per primary team. 3. Family meeting next week I spent minutes with the patient and/or on the patient floor today, greater than?50% of which was spent counseling/coordinating care. Reason for contiued inpatient stay Substantial Risk for: inability to function, rapid decompensation and med/psych decompensation
[2021-04-14 20:15] LABS: Glucose, Whole Blood 115 mg/dL (60-115)
[2021-04-14] MEDS: OLANZapine 10 MG TABLET PO (20:56)
[2021-04-14] MEDS: amLODIPine Besylate 2.5 MG TABLET PO (20:57)
[2021-04-15] MEDS: Omeprazole 20 MG CAPSULE.DR PO (06:29)
[2021-04-15 06:44] LABS: Creatinine Clr Calc Pharmacy 51.4; Estimated Glomerular Filt Rate > 60
[2021-04-15 06:57] LABS: Glucose, Whole Blood 110 mg/dL (60-115)
[2021-04-15 08:26] VITALS: BP 104/72; PULSE 59
[2021-04-15] MEDS: metFORMIN HCl ER 500 MG TAB.ER.24H PO (08:26)
[2021-04-15] MEDS: Isosorbide Mononitrate 60 MG TAB.ER.24H PO (08:26)
[2021-04-15] MEDS: Metoprolol Tartrate 12.5 MG HALFTAB PO ×2 (08:26→20:45)
[2021-04-15] MEDS: Finasteride 5 MG TABLET PO (08:26)
[2021-04-15] MEDS: Celecoxib 200 MG CAPSULE PO ×2 (08:26→20:43)
[2021-04-15] MEDS: buPROPion HCl XL 150 MG TAB.ER.24H PO (08:27)
[2021-04-15] MEDS: Atorvastatin Calcium 80 MG TABLET PO (08:27)
--- NOTE | 2021-04-15 16:40 | P.PNPSI_ITS ---
Subjective Subjective Date of Service: 04/15/21 Reason For Visit: Mood lability Subjective Notes: Conditional Voluntary Interim History: The nursing staff reported the patient slept well, he had good appetite and he was cooperative. On interview, the patient reported that he had ECT with no side effects. He reports that his mood has improved. Medication Compliance: Yes Side effects from medications: No Attending Groups: Intermittent Review of Systems Acute medical concerns: No Medical Review of Systems: unchanged Mental Status Exam Mental Status Exam Patient Appearance: Well Grooomed Patient Orientation: Person Level of Consciousness: Awake Patient Behavior: Cooperative Mood Description: Constricted Affect Description: Constricted Patient Cognition Impaired: Yes Ability to Follow Directions: Good Speech Pattern: Clear Hallucinations: None Delusions: Not Present Thought Process: Intact Thought Content: positive for Circumstantial Judgement: Fair Diagnostics Vital Signs (24Hr): Vital Signs - 24 hr 04/14/21 20:57 04/14/21 21:00 04/14/21 21:16 Temperature 98.8 F Pulse Rate 55 55 55 Respiratory Rate 18 Blood Pressure 145/61 H 145/61 H Pulse Oximetry 95 04/15/21 08:26 Temperature Pulse Rate 59 Respiratory Rate Blood Pressure 104/72 Pulse Oximetry Body Mass Index 25.0 Labs Results: 03/16/21 19:42 04/15/21 06:12 Labs: Laboratory Results - last 48 hr 04/13/21 04/14/21 04/14/21 20:49 06:15 20:08 Creatinine Estim Creat Clear Calc Estimated GFR POC Glucose 154 H 93 115 04/15/21 04/15/21 06:12 06:28 Creatinine 1.03 Estim Creat Clear Calc 51.4 Estimated GFR > 60 POC Glucose 110 Imaging Radiology Impressions: ITS Impressions Cervical Spine CT 03/16/21 15:12 IMPRESSION: 1. No acute intracranial pathology. 2. No CT evidence of acute cervical spine fracture or traumatic subluxation 3. Irregular 1.5 cm lesion right upper lobe. This is chronic unchanged since CAT scan of December 03, 2019. Elbow X-Ray 03/16/21 15:12 IMPRESSION: Arthritis. No fracture or dislocation seen. EXAMINATION: Right elbow x-ray CLINICAL INFORMATION: Pain post fall COMPARISON: None. TECHNIQUE: 3 views of the right elbow FINDINGS: There is a comminuted displaced fracture of the olecranon. No other fracture is seen. Joint spaces are normal. There is an elbow joint effusion. There is soft tissue swelling over the fracture. IMPRESSION: Comminuted displaced fracture of the olecranon. EXAMINATION: Right shoulder x-ray CLINICAL INFORMATION: Pain post fall COMPARISON: None. TECHNIQUE: 3 views of the right shoulder FINDINGS: Bone alignment is normal. No fracture or dislocation is seen. The glenohumeral joint is normal. There is arthritis at the acromioclavicular joint. Soft tissues are unremarkable. IMPRESSION: Arthritis at the acromioclavicular joint. EXAMINATION: Chest x-ray CLINICAL INFORMATION: Pain post fall COMPARISON: Previous chest x-ray August 2016 TECHNIQUE: One view of the chest FINDINGS: The cardiac silhouette is slightly enlarged. Thoracic aorta is tortuous. The pulmonary tavon appear prominent. There is a new right subclavian dual chamber pacemaker. There is a small dense right upper lobe nodule that appears unchanged. The lungs are otherwise clear. There is no pleural effusion or pneumothorax. There are surgical clips in the left axilla. There are degenerative changes of the spine. IMPRESSION: No evidence for acute disease in the chest. Prominent pulmonary tavon questionable for enlarged pulmonary arteries versus lymphadenopathy. Head CT 03/16/21 15:12 IMPRESSION: 1. No acute intracranial pathology. 2. No CT evidence of acute cervical spine fracture or traumatic subluxation 3. Irregular 1.5 cm lesion right upper lobe. This is chronic unchanged since CAT scan of December 03, 2019. Shoulder X-Ray 03/16/21 15:12 IMPRESSION: Arthritis. No fracture or dislocation seen. EXAMINATION: Right elbow x-ray CLINICAL INFORMATION: Pain post fall COMPARISON: None. TECHNIQUE: 3 views of the right elbow FINDINGS: There is a comminuted displaced fracture of the olecranon. No other fracture is seen. Joint spaces are normal. There is an elbow joint effusion. There is soft tissue swelling over the fracture. IMPRESSION: Comminuted displaced fracture of the olecranon. EXAMINATION: Right shoulder x-ray CLINICAL INFORMATION: Pain post fall COMPARISON: None. TECHNIQUE: 3 views of the right shoulder FINDINGS: Bone alignment is normal. No fracture or dislocation is seen. The glenohumeral joint is normal. There is arthritis at the acromioclavicular joint. Soft tissues are unremarkable. IMPRESSION: Arthritis at the acromioclavicular joint. EXAMINATION: Chest x-ray CLINICAL INFORMATION: Pain post fall COMPARISON: Previous chest x-ray August 2016 TECHNIQUE: One view of the chest FINDINGS: The cardiac silhouette is slightly enlarged. Thoracic aorta is tortuous. The pulmonary tavon appear prominent. There is a new right subclavian dual chamber pacemaker. There is a small dense right upper lobe nodule that appears unchanged. The lungs are otherwise clear. There is no pleural effusion or pneumothorax. There are surgical clips in the left axilla. There are degenerative changes of the spine. IMPRESSION: No evidence for acute disease in the chest. Prominent pulmonary tavon questionable for enlarged pulmonary arteries versus lymphadenopathy. Wrist X-Ray 03/16/21 15:12 IMPRESSION: Arthritis. No fracture or dislocation seen. EXAMINATION: Right elbow x-ray CLINICAL INFORMATION: Pain post fall COMPARISON: None. TECHNIQUE: 3 views of the right elbow FINDINGS: There is a comminuted displaced fracture of the olecranon. No other fracture is seen. Joint spaces are normal. There is an elbow joint effusion. There is soft tissue swelling over the fracture. IMPRESSION: Comminuted displaced fracture of the olecranon. EXAMINATION: Right shoulder x-ray CLINICAL INFORMATION: Pain post fall COMPARISON: None. TECHNIQUE: 3 views of the right shoulder FINDINGS: Bone alignment is normal. No fracture or dislocation is seen. The glenohumeral joint is normal. There is arthritis at the acromioclavicular joint. Soft tissues are unremarkable. IMPRESSION: Arthritis at the acromioclavicular joint. EXAMINATION: Chest x-ray CLINICAL INFORMATION: Pain post fall COMPARISON: Previous chest x-ray August 2016 TECHNIQUE: One view of the chest FINDINGS: The cardiac silhouette is slightly enlarged. Thoracic aorta is tortuous. The pulmonary tavon appear prominent. There is a new right subclavian dual chamber pacemaker. There is a small dense right upper lobe nodule that appears unchanged. The lungs are otherwise clear. There is no pleural effusion or pneumothorax. There are surgical clips in the left axilla. There are degenerative changes of the spine. IMPRESSION: No evidence for acute disease in the chest. Prominent pulmonary tavon questionable for enlarged pulmonary arteries versus lymphadenopathy. Chest X-Ray 03/16/21 15:13 IMPRESSION: Arthritis. No fracture or dislocation seen. EXAMINATION: Right elbow x-ray CLINICAL INFORMATION: Pain post fall COMPARISON: None. TECHNIQUE: 3 views of the right elbow FINDINGS: There is a comminuted displaced fracture of the olecranon. No other fracture is seen. Joint spaces are normal. There is an elbow joint effusion. There is soft tissue swelling over the fracture. IMPRESSION: Comminuted displaced fracture of the olecranon. EXAMINATION: Right shoulder x-ray CLINICAL INFORMATION: Pain post fall COMPARISON: None. TECHNIQUE: 3 views of the right shoulder FINDINGS: Bone alignment is normal. No fracture or dislocation is seen. The glenohumeral joint is normal. There is arthritis at the acromioclavicular joint. Soft tissues are unremarkable. IMPRESSION: Arthritis at the acromioclavicular joint. EXAMINATION: Chest x-ray CLINICAL INFORMATION: Pain post fall COMPARISON: Previous chest x-ray August 2016 TECHNIQUE: One view of the chest FINDINGS: The cardiac silhouette is slightly enlarged. Thoracic aorta is tortuous. The pulmonary tavon appear prominent. There is a new right subclavian dual chamber pacemaker. There is a small dense right upper lobe nodule that appears unchanged. The lungs are otherwise clear. There is no pleural effusion or pneumothorax. There are surgical clips in the left axilla. There are degenerative changes of the spine. IMPRESSION: No evidence for acute disease in the chest. Prominent pulmonary tavon questionable for enlarged pulmonary arteries versus lymphadenopathy. Elbow X-Ray 03/25/21 14:11 IMPRESSION: No change in the comminuted displaced olecranon fracture. Knee X-Ray 04/01/21 11:28 IMPRESSION: Moderate to large joint effusion and degenerative changes. Elbow X-Ray 04/01/21 13:59 IMPRESSION: Comminuted fracture proximal olecranon. Medications Medications Current Medications Acetaminophen (Acetaminophen 325 Mg Tablet) 650 mg PO Q6H PRN PRN Reason: Headache/Pain Mild Scale (1-3) Last Admin: 03/31/21 23:54 Dose: 650 mg Documented by: Acetaminophen (Acetaminophen 325 Mg Tablet) 650 mg PO Q6H PRN PRN Reason: Headache/Pain Mild Scale (1-3) Acetaminophen (Acetaminophen 325 Mg Tablet) 650 mg PO ONCE PRN PRN Reason: Pain, Mild (Pain Scale 1-3) Al Hydroxide/Mg Hydroxide (Magnesium Hydrox/Alum Hydrox 30 Ml Oral.Susp) 30 ml PO Q6H PRN PRN Reason: Heartburn/Nausea Alendronate Sodium (Alendronate Sodium 70 Mg Tablet) 70 mg PO SA [facility] Last Admin: 04/10/21 09:10 Dose: 70 mg Documented by: Amlodipine Besylate (Amlodipine Besylate 2.5 Mg Tablet) 2.5 mg PO BEDTIME [facility]; Protocol Last Admin: 04/14/21 20:57 Dose: 2.5 mg Documented by: Atorvastatin Calcium (Atorvastatin Calcium 80 Mg Tablet) 80 mg PO DAILY [facility] Last Admin: 04/15/21 08:27 Dose: 80 mg Documented by: Bupropion HCl (Bupropion Hcl Xl 150 Mg Tab.Er.24h) 150 mg PO DAILY [facility] Last Admin: 04/15/21 08:27 Dose: 150 mg Documented by: Celecoxib (Celecoxib 200 Mg Capsule) 200 mg PO BID [facility] Last Admin: 04/15/21 08:26 Dose: 200 mg Documented by: Finasteride (Finasteride 5 Mg Tablet) 5 mg PO DAILY [facility] Last Admin: 04/15/21 08:26 Dose: 5 mg Documented by: Hydroxyzine HCl (Hydroxyzine Hcl 25 Mg Tablet) 25 mg PO Q6H PRN PRN Reason: Anxiety Last Admin: 04/03/21 20:15 Dose: 25 mg Documented by: Isosorbide Mononitrate (Isosorbide Mononitrate 60 Mg Tab.Er.24h) 60 mg PO DAILY [facility]; Protocol Last Admin: 04/15/21 08:26 Dose: 60 mg Documented by: Magnesium Hydroxide (Milk Of Magnesia 30 Ml Oral.Susp) 30 ml PO DAILY PRN PRN Reason: Constipation Magnesium Hydroxide (Milk Of Magnesia 30 Ml Oral.Susp) 30 ml PO DAILY PRN PRN Reason: Constipation Melatonin (Melatonin 3 Mg Tablet) 3 mg PO BEDTIME PRN PRN Reason: insomnia Last Admin: 04/08/21 01:54 Dose: 3 mg Documented by: Metformin HCl (Metformin Hcl Er 500 Mg Tab.Er.24h) 500 mg PO DAILY [facility] Last Admin: 04/15/21 08:26 Dose: 500 mg Documented by: Metoprolol Tartrate (Metoprolol Tartrate 12.5 Mg Halftab) 12.5 mg PO BID [facility]; Protocol Last Admin: 04/15/21 08:26 Dose: 12.5 mg Documented by: Patient Own Med ( Alfuzosin Hcl Er 10mg) 1 each PO BEDTIME [facility] Last Admin: 04/14/21 20:56 Dose: 1 each Documented by: Patient Own Med ( (Lumigan 0.01% Soln)) 1 each EYE-BOTH BEDTIME [facility] Last Admin: 04/15/21 04:15 Dose: Not Given Documented by: Olanzapine (Olanzapine 10 Mg Tablet) 10 mg PO BEDTIME [facility] Last Admin: 04/14/21 20:56 Dose: 10 mg Documented by: Omeprazole (Omeprazole 20 Mg Capsule.Dr) 20 mg PO DAILY@0630 [facility] Last Admin: 04/15/21 06:29 Dose: 20 mg Documented by: Pharmacy Consult (Consult Rx Perform Med Rec) 1 each MISCELLANE ONCE PRN PRN Reason: Consult order Pharmacy Consult (Consult Rx Perform Med Rec) 1 each MISCELLANE ONCE PRN PRN Reason: Consult order Trazodone HCl (Trazodone Hcl 50 Mg Tablet) 50 mg PO BEDTIME PRN PRN Reason: Insomnia Last Admin: 03/20/21 01:20 Dose: 50 mg Documented by: Allergies Allergies Allergy/AdvReac Type Severity Reaction Status Date / Time metoprolol AdvReac Unknown bradycardia Verified 03/16/21 14:28 timolol AdvReac Unknown low bp Verified 03/16/21 14:28 tamsulosin [From Flomax] AdvReac Diarrhea Verified 03/22/21 13:42 beta blockers AdvReac Hypotension Uncoded 03/22/21 13:46 Assessment & Plan Assessment & Plan (1) Bipolar disorder: Status: Acute Code(s): F31.9 - Bipolar disorder, unspecified Assessment and Plan: 80-year-old male with a history of bipolar disease and dementia, admitted for exacerbation of mixed symptoms elicited by hypomania and severe depression. Plan 1. Continue same medications. 2. ECT per primary team as an outpatient after discharge 3. Discharge tomorrow I spent minutes with the patient and/or on the patient floor today, greater than?50% of which was spent counseling/coordinating care. Reason for contiued inpatient stay Substantial Risk for: harm to self, inability to function, rapid decompensation and med/psych decompensation
[2021-04-15] MEDS: OLANZapine 10 MG TABLET PO (20:43)
[2021-04-15 20:44] VITALS: BP 107/58; PULSE 61
[2021-04-15] MEDS: Melatonin 3 MG TABLET PO (20:44)
[2021-04-15] MEDS: amLODIPine Besylate 2.5 MG TABLET PO (20:44)
[2021-04-15 20:45] VITALS: BP 107/58; PULSE 61
[2021-04-15 21:10] LABS: Glucose, Whole Blood 149 mg/dL (60-115)
[2021-04-16 05:46] VITALS: BP 100/57; PULSE 55; RESP 16; TEMP 37.1; O2SAT 95
[2021-04-16 05:55] LABS: Glucose, Whole Blood 132 mg/dL (60-115)
[2021-04-16 06:49] VITALS: BP 114/64; PULSE 55; RESP 16; TEMP 36; O2SAT 95
--- NOTE | 2021-04-16 07:24 | MHC.SHP ---
Pre-Procedural Eval Section A Date of Service: 04/16/21 The patient is an INPATIENT: Yes Changes since office visit: Yes Changes in Medication and Yes Patient answered all questions; No Cold of Flu in the past 2 weeks and No New Medical Problems The History & Physical has been completed within 30 days and I have reviewed it.: Yes Section B Chief Complaint: Mood lability Allergies: Allergies Allergy/AdvReac Type Severity Reaction Status Date / Time metoprolol AdvReac Unknown bradycardia Verified 03/16/21 14:28 timolol AdvReac Unknown low bp Verified 03/16/21 14:28 tamsulosin [From Flomax] AdvReac Diarrhea Verified 03/22/21 13:42 beta blockers AdvReac Hypotension Uncoded 03/22/21 13:46 Plan I have reviewed the history and physical and performed a pertinent physical examination on my patient. No changes have occurred unless specified.
--- NOTE | 2021-04-16 07:35 | HO.ECTPROC ---
ECT Procedure Note Diagnosis/Treatment Date of Service: 04/16/21 Diagnosis: Major Depressive Disorder Current Treatment Number: 4 Treatment: Series Interval Clinical Notes: pt feeling better ECT Settings Device: THYMATRON DGx Electrode Placement: Right Unilateral Program/Pulse Width: 0.25 Energy Percent: 25 Seizure Duration By EEG (in seconds): 63 Medications Administration General Anesthetic: Etomidate Muscle Relaxant: Succinylcholine (100) Ancillary Medications Analgesics: Torodol - Pre ECT Anti-emetics: Zofran - Pre ECT Airway Management Airway Management: Bag Mask Ventilation Treatment Recommendations No Changes Recommended: No change Notes: continue tx series case reviewed dr glaser Pt Tolerated Procedure w/o Issue: Yes
--- NOTE | 2021-04-16 07:54 | P.CONAN_ITS ---
[facility] Active Problems Active Problems: All Active Problems (Updated 03/17/21 @ 17:33 by Desiree canas) Bipolar disorder (Acute) Acute confusion (Acute) Elbow fracture, right (Acute) Major depression (Acute) Acute alteration in mental status (Acute) Chest pressure (Acute) CAD (coronary artery disease) (Acute) Cardiac pacemaker in situ (Acute) HTN (hypertension) (Acute) Diabetes (Acute) Hyperlipidemia (Acute) Past Medical History Medical History CAD (coronary artery disease) Cardiac pacemaker in situ Diabetes History of left breast cancer HTN (hypertension) Hyperlipidemia Sick sinus syndrome Family History Family History Father CVD (cardiovascular disease) Mother CVD (cardiovascular disease) Brother CVD (cardiovascular disease) Sister Diabetes Son Diabetes Family history of problems with anesthesia: No Surgical History Surgical History History of permanent cardiac pacemaker placement Hx of CABG Hx of cataract surgery Hx of mastectomy History of Problems with Anesthesia: No Social History Social History Household Members: Spouse Housing: House Do you presently have visiting nurse or other home services: No Alcohol intake: never Patient Tobacco Use Status: Former Tobacco user Tobacco use type: Cigarette Advance Directives Date on File: 03/17/21 service: No Sexual orientation: Straight/Heterosexual Meds Allergies Allergy/AdvReac Type Severity Reaction Status Date / Time metoprolol AdvReac Unknown bradycardia Verified 03/16/21 14:28 timolol AdvReac Unknown low bp Verified 03/16/21 14:28 tamsulosin [From Flomax] AdvReac Diarrhea Verified 03/22/21 13:42 beta blockers AdvReac Hypotension Uncoded 03/22/21 13:46 Active Medications: Current Medications Acetaminophen (Acetaminophen 325 Mg Tablet) 650 mg PO Q6H PRN PRN Reason: Headache/Pain Mild Scale (1-3) Last Admin: 03/31/21 23:54 Dose: 650 mg Documented by: Acetaminophen (Acetaminophen 325 Mg Tablet) 650 mg PO Q6H PRN PRN Reason: Headache/Pain Mild Scale (1-3) Acetaminophen (Acetaminophen 325 Mg Tablet) 650 mg PO ONCE PRN PRN Reason: Pain, Mild (Pain Scale 1-3) Al Hydroxide/Mg Hydroxide (Magnesium Hydrox/Alum Hydrox 30 Ml Oral.Susp) 30 ml PO Q6H PRN PRN Reason: Heartburn/Nausea Alendronate Sodium (Alendronate Sodium 70 Mg Tablet) 70 mg PO SA [facility] Last Admin: 04/10/21 09:10 Dose: 70 mg Documented by: Amlodipine Besylate (Amlodipine Besylate 2.5 Mg Tablet) 2.5 mg PO BEDTIME [facility]; Protocol Last Admin: 04/15/21 20:44 Dose: 2.5 mg Documented by: Atorvastatin Calcium (Atorvastatin Calcium 80 Mg Tablet) 80 mg PO DAILY [facility] Last Admin: 04/15/21 08:27 Dose: 80 mg Documented by: Bupropion HCl (Bupropion Hcl Xl 150 Mg Tab.Er.24h) 150 mg PO DAILY [facility] Last Admin: 04/15/21 08:27 Dose: 150 mg Documented by: Celecoxib (Celecoxib 200 Mg Capsule) 200 mg PO BID [facility] Last Admin: 04/15/21 20:43 Dose: 200 mg Documented by: Finasteride (Finasteride 5 Mg Tablet) 5 mg PO DAILY [facility] Last Admin: 04/15/21 08:26 Dose: 5 mg Documented by: Hydroxyzine HCl (Hydroxyzine Hcl 25 Mg Tablet) 25 mg PO Q6H PRN PRN Reason: Anxiety Last Admin: 04/03/21 20:15 Dose: 25 mg Documented by: Isosorbide Mononitrate (Isosorbide Mononitrate 60 Mg Tab.Er.24h) 60 mg PO DAILY [facility]; Protocol Last Admin: 04/15/21 08:26 Dose: 60 mg Documented by: Magnesium Hydroxide (Milk Of Magnesia 30 Ml Oral.Susp) 30 ml PO DAILY PRN PRN Reason: Constipation Magnesium Hydroxide (Milk Of Magnesia 30 Ml Oral.Susp) 30 ml PO DAILY PRN PRN Reason: Constipation Melatonin (Melatonin 3 Mg Tablet) 3 mg PO BEDTIME PRN PRN Reason: insomnia Last Admin: 04/15/21 20:44 Dose: 3 mg Documented by: Metformin HCl (Metformin Hcl Er 500 Mg Tab.Er.24h) 500 mg PO DAILY [facility] Last Admin: 04/15/21 08:26 Dose: 500 mg Documented by: Metoprolol Tartrate (Metoprolol Tartrate 12.5 Mg Halftab) 12.5 mg PO BID [facility]; Protocol Last Admin: 04/15/21 20:45 Dose: 12.5 mg Documented by: Patient Own Med ( Alfuzosin Hcl Er 10mg) 1 each PO BEDTIME [facility] Last Admin: 04/15/21 22:48 Dose: 1 each Documented by: Patient Own Med ( (Lumigan 0.01% Soln)) 1 each EYE-BOTH BEDTIME [facility] Last Admin: 04/15/21 22:46 Dose: 1 each Documented by: Olanzapine (Olanzapine 10 Mg Tablet) 10 mg PO BEDTIME [facility] Last Admin: 04/15/21 20:43 Dose: 10 mg Documented by: Omeprazole (Omeprazole 20 Mg Capsule.Dr) 20 mg PO DAILY@0630 [facility] Last Admin: 04/16/21 05:23 Dose: Not Given Documented by: Pharmacy Consult (Consult Rx Perform Med Rec) 1 each MISCELLANE ONCE PRN PRN Reason: Consult order Pharmacy Consult (Consult Rx Perform Med Rec) 1 each MISCELLANE ONCE PRN PRN Reason: Consult order Trazodone HCl (Trazodone Hcl 50 Mg Tablet) 50 mg PO BEDTIME PRN PRN Reason: Insomnia Last Admin: 03/20/21 01:20 Dose: 50 mg Documented by: Home Medications Medication Instructions Recorded Confirmed Last Taken Type alendronate 70 mg tablet 70 mg PO SA 05/28/20 03/16/21 03/13/21 History bimatoprost 0.01 % eye drops 1 drp OPHTHALMIC (EYE) BEDTIME 05/28/20 03/16/21 03/15/21 History finasteride 5 mg tablet 5 mg PO DAILY 05/28/20 03/16/21 03/15/21 History lamotrigine 25 mg tablet 25 mg PO BID 05/28/20 03/16/21 03/15/21 History metformin 500 mg tablet,extended 500 mg PO QAM 05/28/20 03/16/21 03/16/21 History release 24 hr pantoprazole 40 mg tablet,delayed 40 mg PO DAILY 05/28/20 03/16/21 03/15/21 History release alfuzosin 10 mg tablet,extended 1 tab PO BEDTIME 03/16/21 03/16/21 03/15/21 History release 24 hr bupropion HCl 300 mg 24 hr tablet, 1 tab PO DAILY 03/16/21 03/16/21 03/15/21 History extended release lorazepam 0.5 mg tablet 1 tab PO BID PRN 03/16/21 03/16/21 03/13/21 History melatonin 3 mg tablet 1 tab PO BEDTIME PRN 03/16/21 03/16/21 03/15/21 History olanzapine 2.5 mg tablet 1 tab PO BEDTIME 03/16/21 03/16/21 03/15/21 History sulfamethoxazole 800 1 tab PO BID 03/16/21 03/16/21 03/16/21 History mg-trimethoprim 160 mg tablet (Bactrim DS) Exam Exam Date and Time: April 16, 2021 0754 Height,Weight and Vital Signs: Height 5 ft 5 in Weight 68.132 kg Last Vital Signs Temp 96.8 F 04/16/21 06:49 Pulse 55 04/16/21 06:49 Resp 16 04/16/21 06:49 BP 114/64 04/16/21 06:49 Pulse Ox 95 04/16/21 06:49 Pertinent Lab Results Pertinent Lab Results: Laboratory Tests 03/16/21 03/16/21 03/16/21 16:05 16:39 16:59 WBC RBC Hgb Hct MCV MCH MCHC RDW Plt Count MPV Immature Gran % (Auto) Neut % (Auto) Lymph % (Auto) [place] % (Auto) Eos % (Auto) Baso % (Auto) Lymph # (Auto) [place] # (Auto) Eos # (Auto) Baso # (Auto) Abs Immat Gran (auto) Absolute Neuts (auto) Absolute Nucleated RBC Nucleated RBC % (auto) VBG pH VBG pCO2 VBG pO2 VBG HCO3 VBG O2 Saturation VBG Base Excess Sodium 139 Potassium 4.7 Chloride 108 Carbon Dioxide 21 L Anion Gap 15 BUN 18 H Creatinine 1.13 Estim Creat Clear Calc 46.8 Estimated GFR > 60 POC Glucose Random Glucose 103 Lactic Acid Calcium 10.0 Magnesium 2.0 Total Bilirubin 1.1 H Direct Bilirubin 0.5 AST 32 ALT 34 Alkaline Phosphatase 81 Ammonia 27 Total Creatine Kinase 253 H Troponin I High Sens Total Protein 6.4 L Albumin 4.0 TSH Urine Color Urine Appearance Urine pH Ur Specific [place] Urine Protein Urine Glucose (UA) Urine Ketones Urine Blood Urine Nitrite Ur Leukocyte Esterase Urine Opiates Screen Urine Fentanyl Screen Acetaminophen < 1 Ur Barbiturates Screen Ur Phencyclidine Scrn Ur Amphetamines Screen U Benzodiazepines Scrn Urine Cocaine Screen U Marijuana (THC) Screen Ethyl Alcohol COVID-19 ([facility]RE) Negative COVID-19 Clin Com See Note 03/16/21 03/16/21 03/16/21 16:59 16:59 16:59 WBC RBC Hgb Hct MCV MCH MCHC RDW Plt Count MPV Immature Gran % (Auto) Neut % (Auto) Lymph % (Auto) [place] % (Auto) Eos % (Auto) Baso % (Auto) Lymph # (Auto) [place] # (Auto) Eos # (Auto) Baso # (Auto) Abs Immat Gran (auto) Absolute Neuts (auto) Absolute Nucleated RBC Nucleated RBC % (auto) VBG pH VBG pCO2 VBG pO2 VBG HCO3 VBG O2 Saturation VBG Base Excess Sodium Potassium Chloride Carbon Dioxide Anion Gap BUN Creatinine Estim Creat Clear Calc Estimated GFR POC Glucose Random Glucose Lactic Acid 2.3 H* Calcium Magnesium Total Bilirubin Direct Bilirubin AST ALT Alkaline Phosphatase Ammonia Total Creatine Kinase Troponin I High Sens 10.1 Total Protein Albumin TSH 1.77 Urine Color Urine Appearance Urine pH Ur Specific [place] Urine Protein Urine Glucose (UA) Urine Ketones Urine Blood Urine Nitrite Ur Leukocyte Esterase Urine Opiates Screen Urine Fentanyl Screen Acetaminophen Ur Barbiturates Screen Ur Phencyclidine Scrn Ur Amphetamines Screen U Benzodiazepines Scrn Urine Cocaine Screen U Marijuana (THC) Screen Ethyl Alcohol COVID-19 ([facility]) COVID-19 Clin Com 03/16/21 03/16/21 03/16/21 16:59 17:05 17:29 WBC RBC Hgb Hct MCV MCH MCHC RDW Plt Count MPV Immature Gran % (Auto) Neut % (Auto) Lymph % (Auto) [place] % (Auto) Eos % (Auto) Baso % (Auto) Lymph # (Auto) [place] # (Auto) Eos # (Auto) Baso # (Auto) Abs Immat Gran (auto) Absolute Neuts (auto) Absolute Nucleated RBC Nucleated RBC % (auto) VBG pH 7.36 VBG pCO2 37 VBG pO2 47 VBG HCO3 21 L VBG O2 Saturation 69.0 VBG Base Excess -3.1 Sodium Potassium Chloride Carbon Dioxide Anion Gap BUN Creatinine Estim Creat Clear Calc Estimated GFR POC Glucose Random Glucose Lactic Acid Calcium Magnesium Total Bilirubin Direct Bilirubin AST ALT Alkaline Phosphatase Ammonia Total Creatine Kinase Troponin I High Sens Total Protein Albumin TSH Urine Color YELLOW Urine Appearance CLEAR Urine pH 6.0 Ur Specific [place] >= 1.030 H Urine Protein NEG Urine Glucose (UA) NEG Urine Ketones 5 Urine Blood NEG Urine Nitrite NEG Ur Leukocyte Esterase NEG Urine Opiates Screen Urine Fentanyl Screen Acetaminophen Ur Barbiturates Screen Ur Phencyclidine Scrn Ur Amphetamines Screen U Benzodiazepines Scrn Urine Cocaine Screen U Marijuana (THC) Screen Ethyl Alcohol < 10 COVID-19 ([facility]) COVID-19 Clin Com 03/16/21 03/16/21 03/16/21 17:29 17:37 19:10 WBC RBC Hgb Hct MCV MCH MCHC RDW Plt Count MPV Immature Gran % (Auto) Neut % (Auto) Lymph % (Auto) [place] % (Auto) Eos % (Auto) Baso % (Auto) Lymph # (Auto) [place] # (Auto) Eos # (Auto) Baso # (Auto) Abs Immat Gran (auto) Absolute Neuts (auto) Absolute Nucleated RBC Nucleated RBC % (auto) VBG pH VBG pCO2 VBG pO2 VBG HCO3 VBG O2 Saturation VBG Base Excess Sodium Potassium Chloride Carbon Dioxide Anion Gap BUN Creatinine Estim Creat Clear Calc Estimated GFR POC Glucose 94 Random Glucose Lactic Acid 1.5 Calcium Magnesium Total Bilirubin Direct Bilirubin AST ALT Alkaline Phosphatase Ammonia Total Creatine Kinase Troponin I High Sens Total Protein Albumin TSH Urine Color Urine Appearance Urine pH Ur Specific [place] Urine Protein Urine Glucose (UA) Urine Ketones Urine Blood Urine Nitrite Ur Leukocyte Esterase Urine Opiates Screen Not Detected Urine Fentanyl Screen Not Detected Acetaminophen Ur Barbiturates Screen Not Detected Ur Phencyclidine Scrn Not Detected Ur Amphetamines Screen Not Detected U Benzodiazepines Scrn Not Detected Urine Cocaine Screen Not Detected U Marijuana (THC) Screen Not Detected Ethyl Alcohol COVID-19 ([facility]RE) COVID-19 Clin Com 03/16/21 03/17/21 03/17/21 19:42 00:53 02:46 WBC 8.7 RBC 4.48 L Hgb 13.6 L Hct 40.5 L MCV 90.4 MCH 30.4 MCHC 33.6 RDW 13.8 Plt Count 205 MPV 9.0 L Immature Gran % (Auto) 0.3 Neut % (Auto) 83.2 H Lymph % (Auto) 7.5 L [place] % (Auto) 6.9 Eos % (Auto) 1.6 Baso % (Auto) 0.5 Lymph # (Auto) 0.7 L [place] # (Auto) 0.6 Eos # (Auto) 0.1 Baso # (Auto) 0.0 Abs Immat Gran (auto) 0.03 Absolute Neuts (auto) 7.2 Absolute Nucleated RBC 0.000 Nucleated RBC % (auto) 0.0 VBG pH VBG pCO2 VBG pO2 VBG HCO3 VBG O2 Saturation VBG Base Excess Sodium Potassium Chloride Carbon Dioxide Anion Gap BUN Creatinine Estim Creat Clear Calc Estimated GFR POC Glucose 66 Random Glucose Lactic Acid Calcium Magnesium Total Bilirubin Direct Bilirubin AST ALT Alkaline Phosphatase Ammonia Total Creatine Kinase Troponin I High Sens 10.7 Total Protein Albumin TSH Urine Color Urine Appearance Urine pH Ur Specific [place] Urine Protein Urine Glucose (UA) Urine Ketones Urine Blood Urine Nitrite Ur Leukocyte Esterase Urine Opiates Screen Urine Fentanyl Screen Acetaminophen Ur Barbiturates Screen Ur Phencyclidine Scrn Ur Amphetamines Screen U Benzodiazepines Scrn Urine Cocaine Screen U Marijuana (THC) Screen Ethyl Alcohol COVID-19 (ANDRE) COVID-[employer] 03/17/21 03/17/21 03/18/21 03:46 06:27 06:02 WBC RBC Hgb Hct MCV MCH MCHC RDW Plt Count MPV Immature Gran % (Auto) Neut % (Auto) Lymph % (Auto) [place] % (Auto) Eos % (Auto) Baso % (Auto) Lymph # (Auto) [place] # (Auto) Eos # (Auto) Baso # (Auto) Abs Immat Gran (auto) Absolute Neuts (auto) Absolute Nucleated RBC Nucleated RBC % (auto) VBG pH VBG pCO2 VBG pO2 VBG HCO3 VBG O2 Saturation VBG Base Excess Sodium Potassium Chloride Carbon Dioxide Anion Gap BUN Creatinine Estim Creat Clear Calc Estimated GFR POC Glucose 75 122 H 109 Random Glucose Lactic Acid Calcium Magnesium Total Bilirubin Direct Bilirubin AST ALT Alkaline Phosphatase Ammonia Total Creatine Kinase Troponin I High Sens Total Protein Albumin TSH Urine Color Urine Appearance Urine pH Ur Specific [place] Urine Protein Urine Glucose (UA) Urine Ketones Urine Blood Urine Nitrite Ur Leukocyte Esterase Urine Opiates Screen Urine Fentanyl Screen Acetaminophen Ur Barbiturates Screen Ur Phencyclidine Scrn Ur Amphetamines Screen U Benzodiazepines Scrn Urine Cocaine Screen U Marijuana (THC) Screen Ethyl Alcohol COVID-19 (ANDRE) COVID-[employer] 03/18/21 03/22/21 03/23/21 07:10 22:05 08:19 WBC RBC Hgb Hct MCV MCH MCHC RDW Plt Count MPV Immature Gran % (Auto) Neut % (Auto) Lymph % (Auto) [place] % (Auto) Eos % (Auto) Baso % (Auto) Lymph # (Auto) [place] # (Auto) Eos # (Auto) Baso # (Auto) Abs Immat Gran (auto) Absolute Neuts (auto) Absolute Nucleated RBC Nucleated RBC % (auto) VBG pH VBG pCO2 VBG pO2 VBG HCO3 VBG O2 Saturation VBG Base Excess Sodium Potassium Chloride Carbon Dioxide Anion Gap BUN Creatinine Estim Creat Clear Calc Estimated GFR POC Glucose 102 161 H 164 H Random Glucose Lactic Acid Calcium Magnesium Total Bilirubin Direct Bilirubin AST ALT Alkaline Phosphatase Ammonia Total Creatine Kinase Troponin I High Sens Total Protein Albumin TSH Urine Color Urine Appearance Urine pH Ur Specific [place] Urine Protein Urine Glucose (UA) Urine Ketones Urine Blood Urine Nitrite Ur Leukocyte Esterase Urine Opiates Screen Urine Fentanyl Screen Acetaminophen Ur Barbiturates Screen Ur Phencyclidine Scrn Ur Amphetamines Screen U Benzodiazepines Scrn Urine Cocaine Screen U Marijuana (THC) Screen Ethyl Alcohol COVID-19 (ANDRE) COVID-[employer] 03/23/21 03/24/21 03/24/21 23:21 07:58 10:23 WBC RBC Hgb Hct MCV MCH MCHC RDW Plt Count MPV Immature Gran % (Auto) Neut % (Auto) Lymph % (Auto) [place] % (Auto) Eos % (Auto) Baso % (Auto) Lymph # (Auto) [place] # (Auto) Eos # (Auto) Baso # (Auto) Abs Immat Gran (auto) Absolute Neuts (auto) Absolute Nucleated RBC Nucleated RBC % (auto) VBG pH VBG pCO2 VBG pO2 VBG HCO3 VBG O2 Saturation VBG Base Excess Sodium Potassium Chloride Carbon Dioxide Anion Gap BUN Creatinine 1.07 Estim Creat Clear Calc 49.4 Estimated GFR > 60 POC Glucose 102 171 H Random Glucose Lactic Acid Calcium Magnesium Total Bilirubin Direct Bilirubin AST ALT Alkaline Phosphatase Ammonia Total Creatine Kinase Troponin I High Sens Total Protein Albumin TSH Urine Color Urine Appearance Urine pH Ur Specific [place] Urine Protein Urine Glucose (UA) Urine Ketones Urine Blood Urine Nitrite Ur Leukocyte Esterase Urine Opiates Screen Urine Fentanyl Screen Acetaminophen Ur Barbiturates Screen Ur Phencyclidine Scrn Ur Amphetamines Screen U Benzodiazepines Scrn Urine Cocaine Screen U Marijuana (THC) Screen Ethyl Alcohol COVID-19 ([facility]RE) [employer] 03/24/21 03/25/21 03/25/21 21:07 10:07 21:03 WBC RBC Hgb Hct MCV MCH MCHC RDW Plt Count MPV Immature Gran % (Auto) Neut % (Auto) Lymph % (Auto) [place] % (Auto) Eos % (Auto) Baso % (Auto) Lymph # (Auto) [place] # (Auto) Eos # (Auto) Baso # (Auto) Abs Immat Gran (auto) Absolute Neuts (auto) Absolute Nucleated RBC Nucleated RBC % (auto) VBG pH VBG pCO2 VBG pO2 VBG HCO3 VBG O2 Saturation VBG Base Excess Sodium Potassium Chloride Carbon Dioxide Anion Gap BUN Creatinine Estim Creat Clear Calc Estimated GFR POC Glucose 150 H 265 H 134 H Random Glucose Lactic Acid Calcium Magnesium Total Bilirubin Direct Bilirubin AST ALT Alkaline Phosphatase Ammonia Total Creatine Kinase Troponin I High Sens Total Protein Albumin TSH Urine Color Urine Appearance Urine pH Ur Specific [place] Urine Protein Urine Glucose (UA) Urine Ketones Urine Blood Urine Nitrite Ur Leukocyte Esterase Urine Opiates Screen Urine Fentanyl Screen Acetaminophen Ur Barbiturates Screen Ur Phencyclidine Scrn Ur Amphetamines Screen U Benzodiazepines Scrn Urine Cocaine Screen U Marijuana (THC) Screen Ethyl Alcohol COVID-19 ([facility]RE) COVID-19 Clin Com 03/27/21 03/27/21 03/28/21 10:49 20:19 10:44 WBC RBC Hgb Hct MCV MCH MCHC RDW Plt Count MPV Immature Gran % (Auto) Neut % (Auto) Lymph % (Auto) [place] % (Auto) Eos % (Auto) Baso % (Auto) Lymph # (Auto) [place] # (Auto) Eos # (Auto) Baso # (Auto) Abs Immat Gran (auto) Absolute Neuts (auto) Absolute Nucleated RBC Nucleated RBC % (auto) VBG pH VBG pCO2 VBG pO2 VBG HCO3 VBG O2 Saturation VBG Base Excess Sodium Potassium Chloride Carbon Dioxide Anion Gap BUN Creatinine Estim Creat Clear Calc Estimated GFR POC Glucose 179 H 160 H 203 H Random Glucose Lactic Acid Calcium Magnesium Total Bilirubin Direct Bilirubin AST ALT Alkaline Phosphatase Ammonia Total Creatine Kinase Troponin I High Sens Total Protein Albumin TSH Urine Color Urine Appearance Urine pH Ur Specific [place] Urine Protein Urine Glucose (UA) Urine Ketones Urine Blood Urine Nitrite Ur Leukocyte Esterase Urine Opiates Screen Urine Fentanyl Screen Acetaminophen Ur Barbiturates Screen Ur Phencyclidine Scrn Ur Amphetamines Screen U Benzodiazepines Scrn Urine Cocaine Screen U Marijuana (THC) Screen Ethyl Alcohol COVID-19 (ANDRE) COVID-19 [employer] 03/28/21 03/29/21 03/29/21 21:46 07:40 20:39 WBC RBC Hgb Hct MCV MCH MCHC RDW Plt Count MPV Immature Gran % (Auto) Neut % (Auto) Lymph % (Auto) [place] % (Auto) Eos % (Auto) Baso % (Auto) Lymph # (Auto) [place] # (Auto) Eos # (Auto) Baso # (Auto) Abs Immat Gran (auto) Absolute Neuts (auto) Absolute Nucleated RBC Nucleated RBC % (auto) VBG pH VBG pCO2 VBG pO2 VBG HCO3 VBG O2 Saturation VBG Base Excess Sodium Potassium Chloride Carbon Dioxide Anion Gap BUN Creatinine Estim Creat Clear Calc Estimated GFR POC Glucose 176 H 147 H 205 H Random Glucose Lactic Acid Calcium Magnesium Total Bilirubin Direct Bilirubin AST ALT Alkaline Phosphatase Ammonia Total Creatine Kinase Troponin I High Sens Total Protein Albumin TSH Urine Color Urine Appearance Urine pH Ur Specific [place] Urine Protein Urine Glucose (UA) Urine Ketones Urine Blood Urine Nitrite Ur Leukocyte Esterase Urine Opiates Screen Urine Fentanyl Screen Acetaminophen Ur Barbiturates Screen Ur Phencyclidine Scrn Ur Amphetamines Screen U Benzodiazepines Scrn Urine Cocaine Screen U Marijuana (THC) Screen Ethyl Alcohol COVID-19 (ANDRE) COVID-19 [employer] 03/30/21 03/30/21 03/30/21 07:42 08:02 21:33 WBC RBC Hgb Hct MCV MCH MCHC RDW Plt Count MPV Immature Gran % (Auto) Neut % (Auto) Lymph % (Auto) [place] % (Auto) Eos % (Auto) Baso % (Auto) Lymph # (Auto) [place] # (Auto) Eos # (Auto) Baso # (Auto) Abs Immat Gran (auto) Absolute Neuts (auto) Absolute Nucleated RBC Nucleated RBC % (auto) VBG pH VBG pCO2 VBG pO2 VBG HCO3 VBG O2 Saturation VBG Base Excess Sodium 138 Potassium 4.7 Chloride 106 Carbon Dioxide 26 Anion Gap 11 L BUN 17 H Creatinine 0.92 Estim Creat Clear Calc 57.5 Estimated GFR > 60 POC Glucose 137 H 211 H Random Glucose 169 H D Lactic Acid Calcium 10.3 H Magnesium Total Bilirubin Direct Bilirubin AST ALT Alkaline Phosphatase Ammonia Total Creatine Kinase Troponin I High Sens Total Protein Albumin TSH Urine Color Urine Appearance Urine pH Ur Specific [place] Urine Protein Urine Glucose (UA) Urine Ketones Urine Blood Urine Nitrite Ur Leukocyte Esterase Urine Opiates Screen Urine Fentanyl Screen Acetaminophen Ur Barbiturates Screen Ur Phencyclidine Scrn Ur Amphetamines Screen U Benzodiazepines Scrn Urine Cocaine Screen U Marijuana (THC) Screen Ethyl Alcohol COVID-19 (ANDRE) COVID-19 [employer] 03/31/21 03/31/21 04/01/21 07:31 19:52 07:59 WBC RBC Hgb Hct MCV MCH MCHC RDW Plt Count MPV Immature Gran % (Auto) Neut % (Auto) Lymph % (Auto) [place] % (Auto) Eos % (Auto) Baso % (Auto) Lymph # (Auto) [place] # (Auto) Eos # (Auto) Baso # (Auto) Abs Immat Gran (auto) Absolute Neuts (auto) Absolute Nucleated RBC Nucleated RBC % (auto) VBG pH VBG pCO2 VBG pO2 VBG HCO3 VBG O2 Saturation VBG Base Excess Sodium Potassium Chloride Carbon Dioxide Anion Gap BUN Creatinine Estim Creat Clear Calc Estimated GFR POC Glucose 139 H 190 H 150 H Random Glucose Lactic Acid Calcium Magnesium Total Bilirubin Direct Bilirubin AST ALT Alkaline Phosphatase Ammonia Total Creatine Kinase Troponin I High Sens Total Protein Albumin TSH Urine Color Urine Appearance Urine pH Ur Specific [place] Urine Protein Urine Glucose (UA) Urine Ketones Urine Blood Urine Nitrite Ur Leukocyte Esterase Urine Opiates Screen Urine Fentanyl Screen Acetaminophen Ur Barbiturates Screen Ur Phencyclidine Scrn Ur Amphetamines Screen U Benzodiazepines Scrn Urine Cocaine Screen U Marijuana (THC) Screen Ethyl Alcohol COVID-19 (ANDRE) COVID-19 [employer] 04/01/21 04/01/21 04/02/21 09:41 20:42 08:04 WBC RBC Hgb Hct MCV MCH MCHC RDW Plt Count MPV Immature Gran % (Auto) Neut % (Auto) Lymph % (Auto) [place] % (Auto) Eos % (Auto) Baso % (Auto) Lymph # (Auto) [place] # (Auto) Eos # (Auto) Baso # (Auto) Abs Immat Gran (auto) Absolute Neuts (auto) Absolute Nucleated RBC Nucleated RBC % (auto) VBG pH VBG pCO2 VBG pO2 VBG HCO3 VBG O2 Saturation VBG Base Excess Sodium 138 Potassium 4.6 Chloride 105 Carbon Dioxide 27 Anion Gap 11 L BUN 17 H Creatinine 0.92 Estim Creat Clear Calc 57.5 Estimated GFR > 60 POC Glucose 170 H 149 H Random Glucose 216 H Lactic Acid Calcium 9.6 D Magnesium Total Bilirubin Direct Bilirubin AST ALT Alkaline Phosphatase Ammonia Total Creatine Kinase Troponin I High Sens Total Protein Albumin TSH Urine Color Urine Appearance Urine pH Ur Specific [place] Urine Protein Urine Glucose (UA) Urine Ketones Urine Blood Urine Nitrite Ur Leukocyte Esterase Urine Opiates Screen Urine Fentanyl Screen Acetaminophen Ur Barbiturates Screen Ur Phencyclidine Scrn Ur Amphetamines Screen U Benzodiazepines Scrn Urine Cocaine Screen U Marijuana (THC) Screen Ethyl Alcohol COVID-19 (ANDRE) COVID-19 [employer] 04/02/21 04/03/21 04/03/21 22:21 14:05 22:18 WBC RBC Hgb Hct MCV MCH MCHC RDW Plt Count MPV Immature Gran % (Auto) Neut % (Auto) Lymph % (Auto) [place] % (Auto) Eos % (Auto) Baso % (Auto) Lymph # (Auto) [place] # (Auto) Eos # (Auto) Baso # (Auto) Abs Immat Gran (auto) Absolute Neuts (auto) Absolute Nucleated RBC Nucleated RBC % (auto) VBG pH VBG pCO2 VBG pO2 VBG HCO3 VBG O2 Saturation VBG Base Excess Sodium Potassium Chloride Carbon Dioxide Anion Gap BUN Creatinine Estim Creat Clear Calc Estimated GFR POC Glucose 217 H 136 H 177 H Random Glucose Lactic Acid Calcium Magnesium Total Bilirubin Direct Bilirubin AST ALT Alkaline Phosphatase Ammonia Total Creatine Kinase Troponin I High Sens Total Protein Albumin TSH Urine Color Urine Appearance Urine pH Ur Specific [place] Urine Protein Urine Glucose (UA) Urine Ketones Urine Blood Urine Nitrite Ur Leukocyte Esterase Urine Opiates Screen Urine Fentanyl Screen Acetaminophen Ur Barbiturates Screen Ur Phencyclidine Scrn Ur Amphetamines Screen U Benzodiazepines Scrn Urine Cocaine Screen U Marijuana (THC) Screen Ethyl Alcohol COVID-19 (ANDRE) [employer] 04/04/21 04/04/21 04/05/21 11:08 20:14 05:23 WBC RBC Hgb Hct MCV MCH MCHC RDW Plt Count MPV Immature Gran % (Auto) Neut % (Auto) Lymph % (Auto) [place] % (Auto) Eos % (Auto) Baso % (Auto) Lymph # (Auto) [place] # (Auto) Eos # (Auto) Baso # (Auto) Abs Immat Gran (auto) Absolute Neuts (auto) Absolute Nucleated RBC Nucleated RBC % (auto) VBG pH VBG pCO2 VBG pO2 VBG HCO3 VBG O2 Saturation VBG Base Excess Sodium Potassium Chloride Carbon Dioxide Anion Gap BUN Creatinine Estim Creat Clear Calc Estimated GFR POC Glucose 132 H 152 H 127 H Random Glucose Lactic Acid Calcium Magnesium Total Bilirubin Direct Bilirubin AST ALT Alkaline Phosphatase Ammonia Total Creatine Kinase Troponin I High Sens Total Protein Albumin TSH Urine Color Urine Appearance Urine pH Ur Specific [place] Urine Protein Urine Glucose (UA) Urine Ketones Urine Blood Urine Nitrite Ur Leukocyte Esterase Urine Opiates Screen Urine Fentanyl Screen Acetaminophen Ur Barbiturates Screen Ur Phencyclidine Scrn Ur Amphetamines Screen U Benzodiazepines Scrn Urine Cocaine Screen U Marijuana (THC) Screen Ethyl Alcohol COVID-19 (ANDRE) [employer] 04/05/21 04/05/21 04/06/21 17:24 20:39 20:36 WBC RBC Hgb Hct MCV MCH MCHC RDW Plt Count MPV Immature Gran % (Auto) Neut % (Auto) Lymph % (Auto) [place] % (Auto) Eos % (Auto) Baso % (Auto) Lymph # (Auto) [place] # (Auto) Eos # (Auto) Baso # (Auto) Abs Immat Gran (auto) Absolute Neuts (auto) Absolute Nucleated RBC Nucleated RBC % (auto) VBG pH VBG pCO2 VBG pO2 VBG HCO3 VBG O2 Saturation VBG Base Excess Sodium Potassium Chloride Carbon Dioxide Anion Gap BUN Creatinine Estim Creat Clear Calc Estimated GFR POC Glucose 159 H 157 H 143 H Random Glucose Lactic Acid Calcium Magnesium Total Bilirubin Direct Bilirubin AST ALT Alkaline Phosphatase Ammonia Total Creatine Kinase Troponin I High Sens Total Protein Albumin TSH Urine Color Urine Appearance Urine pH Ur Specific [place] Urine Protein Urine Glucose (UA) Urine Ketones Urine Blood Urine Nitrite Ur Leukocyte Esterase Urine Opiates Screen Urine Fentanyl Screen Acetaminophen Ur Barbiturates Screen Ur Phencyclidine Scrn Ur Amphetamines Screen U Benzodiazepines Scrn Urine Cocaine Screen U Marijuana (THC) Screen Ethyl Alcohol COVID-19 (ANDRE) [employer] 04/07/21 04/07/21 04/08/21 09:16 21:21 07:05 WBC RBC Hgb Hct MCV MCH MCHC RDW Plt Count MPV Immature Gran % (Auto) Neut % (Auto) Lymph % (Auto) [place] % (Auto) Eos % (Auto) Baso % (Auto) Lymph # (Auto) [place] # (Auto) Eos # (Auto) Baso # (Auto) Abs Immat Gran (auto) Absolute Neuts (auto) Absolute Nucleated RBC Nucleated RBC % (auto) VBG pH VBG pCO2 VBG pO2 VBG HCO3 VBG O2 Saturation VBG Base Excess Sodium Potassium Chloride Carbon Dioxide Anion Gap BUN Creatinine 0.85 Estim Creat Clear Calc 62.3 Estimated GFR > 60 POC Glucose 203 H 156 H Random Glucose Lactic Acid Calcium Magnesium Total Bilirubin Direct Bilirubin AST ALT Alkaline Phosphatase Ammonia Total Creatine Kinase Troponin I High Sens Total Protein Albumin TSH Urine Color Urine Appearance Urine pH Ur Specific [place] Urine Protein Urine Glucose (UA) Urine Ketones Urine Blood Urine Nitrite Ur Leukocyte Esterase Urine Opiates Screen Urine Fentanyl Screen Acetaminophen Ur Barbiturates Screen Ur Phencyclidine Scrn Ur Amphetamines Screen U Benzodiazepines Scrn Urine Cocaine Screen U Marijuana (THC) Screen Ethyl Alcohol COVID-19 (ANDRE) [employer] 04/08/21 04/09/21 04/09/21 09:06 05:34 21:02 WBC RBC Hgb Hct MCV MCH MCHC RDW Plt Count MPV Immature Gran % (Auto) Neut % (Auto) Lymph % (Auto) [place] % (Auto) Eos % (Auto) Baso % (Auto) Lymph # (Auto) [place] # (Auto) Eos # (Auto) Baso # (Auto) Abs Immat Gran (auto) Absolute Neuts (auto) Absolute Nucleated RBC Nucleated RBC % (auto) VBG pH VBG pCO2 VBG pO2 VBG HCO3 VBG O2 Saturation VBG Base Excess Sodium Potassium Chloride Carbon Dioxide Anion Gap BUN Creatinine Estim Creat Clear Calc Estimated GFR POC Glucose 208 H 102 164 H Random Glucose Lactic Acid Calcium Magnesium Total Bilirubin Direct Bilirubin AST ALT Alkaline Phosphatase Ammonia Total Creatine Kinase Troponin I High Sens Total Protein Albumin TSH Urine Color Urine Appearance Urine pH Ur Specific [place] Urine Protein Urine Glucose (UA) Urine Ketones Urine Blood Urine Nitrite Ur Leukocyte Esterase Urine Opiates Screen Urine Fentanyl Screen Acetaminophen Ur Barbiturates Screen Ur Phencyclidine Scrn Ur Amphetamines Screen U Benzodiazepines Scrn Urine Cocaine Screen U Marijuana (THC) Screen Ethyl Alcohol COVID-19 (ANDRE) [employer] 04/11/21 04/12/21 04/12/21 21:16 06:24 20:41 WBC RBC Hgb Hct MCV MCH MCHC RDW Plt Count MPV Immature Gran % (Auto) Neut % (Auto) Lymph % (Auto) [place] % (Auto) Eos % (Auto) Baso % (Auto) Lymph # (Auto) [place] # (Auto) Eos # (Auto) Baso # (Auto) Abs Immat Gran (auto) Absolute Neuts (auto) Absolute Nucleated RBC Nucleated RBC % (auto) VBG pH VBG pCO2 VBG pO2 VBG HCO3 VBG O2 Saturation VBG Base Excess Sodium Potassium Chloride Carbon Dioxide Anion Gap BUN Creatinine Estim Creat Clear Calc Estimated GFR POC Glucose 143 H 117 H 110 Random Glucose Lactic Acid Calcium Magnesium Total Bilirubin Direct Bilirubin AST ALT Alkaline Phosphatase Ammonia Total Creatine Kinase Troponin I High Sens Total Protein Albumin TSH Urine Color Urine Appearance Urine pH Ur Specific [place] Urine Protein Urine Glucose (UA) Urine Ketones Urine Blood Urine Nitrite Ur Leukocyte Esterase Urine Opiates Screen Urine Fentanyl Screen Acetaminophen Ur Barbiturates Screen Ur Phencyclidine Scrn Ur Amphetamines Screen U Benzodiazepines Scrn Urine Cocaine Screen U Marijuana (THC) Screen Ethyl Alcohol COVID-19 (ANDRE) [employer] 04/13/21 04/13/21 04/14/21 08:45 20:49 06:15 WBC RBC Hgb Hct MCV MCH MCHC RDW Plt Count MPV Immature Gran % (Auto) Neut % (Auto) Lymph % (Auto) [place] % (Auto) Eos % (Auto) Baso % (Auto) Lymph # (Auto) [place] # (Auto) Eos # (Auto) Baso # (Auto) Abs Immat Gran (auto) Absolute Neuts (auto) Absolute Nucleated RBC Nucleated RBC % (auto) VBG pH VBG pCO2 VBG pO2 VBG HCO3 VBG O2 Saturation VBG Base Excess Sodium Potassium Chloride Carbon Dioxide Anion Gap BUN Creatinine Estim Creat Clear Calc Estimated GFR POC Glucose 203 H 154 H 93 Random Glucose Lactic Acid Calcium Magnesium Total Bilirubin Direct Bilirubin AST ALT Alkaline Phosphatase Ammonia Total Creatine Kinase Troponin I High Sens Total Protein Albumin TSH Urine Color Urine Appearance Urine pH Ur Specific [place] Urine Protein Urine Glucose (UA) Urine Ketones Urine Blood Urine Nitrite Ur Leukocyte Esterase Urine Opiates Screen Urine Fentanyl Screen Acetaminophen Ur Barbiturates Screen Ur Phencyclidine Scrn Ur Amphetamines Screen U Benzodiazepines Scrn Urine Cocaine Screen U Marijuana (THC) Screen Ethyl Alcohol COVID-19 (ANDRE) [employer] 04/14/21 04/15/21 04/15/21 20:08 06:12 06:28 WBC RBC Hgb Hct MCV MCH MCHC RDW Plt Count MPV Immature Gran % (Auto) Neut % (Auto) Lymph % (Auto) [place] % (Auto) Eos % (Auto) Baso % (Auto) Lymph # (Auto) [place] # (Auto) Eos # (Auto) Baso # (Auto) Abs Immat Gran (auto) Absolute Neuts (auto) Absolute Nucleated RBC Nucleated RBC % (auto) VBG pH VBG pCO2 VBG pO2 VBG HCO3 VBG O2 Saturation VBG Base Excess Sodium Potassium Chloride Carbon Dioxide Anion Gap BUN Creatinine 1.03 Estim Creat Clear Calc 51.4 Estimated GFR > 60 POC Glucose 115 110 Random Glucose Lactic Acid Calcium Magnesium Total Bilirubin Direct Bilirubin AST ALT Alkaline Phosphatase Ammonia Total Creatine Kinase Troponin I High Sens Total Protein Albumin TSH Urine Color Urine Appearance Urine pH Ur Specific [place] Urine Protein Urine Glucose (UA) Urine Ketones Urine Blood Urine Nitrite Ur Leukocyte Esterase Urine Opiates Screen Urine Fentanyl Screen Acetaminophen Ur Barbiturates Screen Ur Phencyclidine Scrn Ur Amphetamines Screen U Benzodiazepines Scrn Urine Cocaine Screen U Marijuana (THC) Screen Ethyl Alcohol COVID-19 (ANDRE) [employer] 04/15/21 04/16/21 21:07 05:51 WBC RBC Hgb Hct MCV MCH MCHC RDW Plt Count MPV Immature Gran % (Auto) Neut % (Auto) Lymph % (Auto) [place] % (Auto) Eos % (Auto) Baso % (Auto) Lymph # (Auto) [place] # (Auto) Eos # (Auto) Baso # (Auto) Abs Immat Gran (auto) Absolute Neuts (auto) Absolute Nucleated RBC Nucleated RBC % (auto) VBG pH VBG pCO2 VBG pO2 VBG HCO3 VBG O2 Saturation VBG Base Excess Sodium Potassium Chloride Carbon Dioxide Anion Gap BUN Creatinine Estim Creat Clear Calc Estimated GFR POC Glucose 149 H 132 H Random Glucose Lactic Acid Calcium Magnesium Total Bilirubin Direct Bilirubin AST ALT Alkaline Phosphatase Ammonia Total Creatine Kinase Troponin I High Sens Total Protein Albumin TSH Urine Color Urine Appearance Urine pH Ur Specific [place] Urine Protein Urine Glucose (UA) Urine Ketones Urine Blood Urine Nitrite Ur Leukocyte Esterase Urine Opiates Screen Urine Fentanyl Screen Acetaminophen Ur Barbiturates Screen Ur Phencyclidine Scrn Ur Amphetamines Screen U Benzodiazepines Scrn Urine Cocaine Screen U Marijuana (THC) Screen Ethyl Alcohol COVID-19 (ANDRE) COVID-19 [employer] Airway Mallampati Class: II TM Dist: >3cm Neck ROM: Full Heart: rrr Lungs: cta Assessment and Plan Assessment Anesthesia Assessment: Anesthesia Plan Discussed and Chart Reviewed Final Anesthetic Review Family History of Problems with Anesthesia: No History of Problems with Anesthesia: No NPO: Yes ASA Class: III Final Preanesthetic Review: No Changes in Pt Med Stat, Meds/Allgs Chart Reviewed and Consent Obtained/Reviewed Patient Risk: Intermediate Procedure Risk: Intermediate Anesthetic Plan Anesthetic Plan: GA Disposition: Standard PACU
[2021-04-16 08:30] VITALS: BP 165/85; PULSE 56; RESP 16; TEMP 36.2; O2SAT 98
[2021-04-16 08:45] VITALS: BP 116/68; PULSE 55; RESP 16; O2SAT 94
[2021-04-16 10:05] VITALS: BP 121/63; PULSE 60
[2021-04-16] MEDS: Isosorbide Mononitrate 60 MG TAB.ER.24H PO (10:05)
[2021-04-16] MEDS: metFORMIN HCl ER 500 MG TAB.ER.24H PO (10:05)
[2021-04-16] MEDS: buPROPion HCl XL 150 MG TAB.ER.24H PO (10:05)
[2021-04-16] MEDS: Finasteride 5 MG TABLET PO (10:05)
[2021-04-16 10:06] VITALS: BP 121/63; PULSE 60
[2021-04-16] MEDS: Atorvastatin Calcium 80 MG TABLET PO (10:06)
[2021-04-16] MEDS: Metoprolol Tartrate 12.5 MG HALFTAB PO (10:06)
[2021-04-16] MEDS: Celecoxib 200 MG CAPSULE PO (10:06)
--- NOTE | 2021-04-16 11:10 | P.DS_ITS ---
DS: Providers Provider Date of Service: 04/16/21 Date of admission: 03/18/21 14:24 Date of discharge: 04/16/21 Primary care physician: Teresa Duran MD Attending physician on discharge: Paul Whitmore DS: Diagnosis Discharge Diagnosis (1) Bipolar disorder: Status: Acute DS: Medications Discharge Medications Home Medications: Home Medications Medication Instructions Recorded Confirmed alendronate 70 mg tablet 70 mg PO SA 05/28/20 03/16/21 bimatoprost 0.01 % eye drops 1 drp OPHTHALMIC (EYE) BEDTIME 05/28/20 03/16/21 finasteride 5 mg tablet 5 mg PO DAILY 05/28/20 03/16/21 lamotrigine 25 mg tablet 25 mg PO BID 05/28/20 03/16/21 metformin 500 mg tablet,extended 500 mg PO QAM 05/28/20 03/16/21 release 24 hr pantoprazole 40 mg tablet,delayed 40 mg PO DAILY 05/28/20 03/16/21 release alfuzosin 10 mg tablet,extended 1 tab PO BEDTIME 03/16/21 03/16/21 release 24 hr bupropion HCl 300 mg 24 hr tablet, 1 tab PO DAILY 03/16/21 03/16/21 extended release lorazepam 0.5 mg tablet 1 tab PO BID PRN 03/16/21 03/16/21 melatonin 3 mg tablet 1 tab PO BEDTIME PRN 03/16/21 03/16/21 olanzapine 2.5 mg tablet 1 tab PO BEDTIME 03/16/21 03/16/21 sulfamethoxazole 800 1 tab PO BID 03/16/21 03/16/21 mg-trimethoprim 160 mg tablet (Bactrim DS) Previous Rx's Medication Instructions Recorded isosorbide mononitrate 60 mg 60 mg PO DAILY #90 tab 07/24/20 tablet,extended release 24 hr metoprolol tartrate 25 mg tablet 25 mg PO BID 90 Days #180 tab 10/01/20 atorvastatin 80 mg tablet 80 mg PO DAILY #90 tab 12/31/20 Mental Status Exam Mental Status Exam Patient Appearance: Well Grooomed Patient Orientation: Person, Place and Situation Level of Consciousness: Awake Patient Behavior: Cooperative Mood Description: Calm Affect Description: Constricted Patient Cognition Impaired: Yes Ability to Follow Directions: Good Speech Pattern: Clear Hallucinations: None Delusions: Not Present Thought Process: Goal Oriented Thought Content: positive for Circumstantial Judgement: Fair Data Data Completed and Pending Completed studies during hospitalization [Text1]: 04/09/21 04/11/21 04/12/21 21:02 21:16 06:24 Creatinine Estim Creat Clear Calc Estimated GFR POC Glucose 164 H 143 H 117 H 04/12/21 04/13/21 04/13/21 20:41 08:45 20:49 Creatinine Estim Creat Clear Calc Estimated GFR POC Glucose 110 203 H 154 H 04/14/21 04/14/21 04/15/21 06:15 20:08 06:12 Creatinine 1.03 Estim Creat Clear Calc 51.4 Estimated GFR > 60 POC Glucose 93 115 04/15/21 04/15/21 04/16/21 06:28 21:07 05:51 Creatinine Estim Creat Clear Calc Estimated GFR POC Glucose 110 149 H 132 H 03/16/21 16:40 Blood - Venous Blood Culture - Final No growth after 5 days. 03/16/21 16:05 Blood - Venous Blood Culture - Final No growth after 5 days. Imaging Diagnostic Imaging Impressions Cervical Spine CT 03/16/21 15:12 IMPRESSION: 1. No acute intracranial pathology. 2. No CT evidence of acute cervical spine fracture or traumatic subluxation 3. Irregular 1.5 cm lesion right upper lobe. This is chronic unchanged since CAT scan of December 03, 2019. Elbow X-Ray 03/16/21 15:12 IMPRESSION: Arthritis. No fracture or dislocation seen. EXAMINATION: Right elbow x-ray CLINICAL INFORMATION: Pain post fall COMPARISON: None. TECHNIQUE: 3 views of the right elbow FINDINGS: There is a comminuted displaced fracture of the olecranon. No other fracture is seen. Joint spaces are normal. There is an elbow joint effusion. There is soft tissue swelling over the fracture. IMPRESSION: Comminuted displaced fracture of the olecranon. EXAMINATION: Right shoulder x-ray CLINICAL INFORMATION: Pain post fall COMPARISON: None. TECHNIQUE: 3 views of the right shoulder FINDINGS: Bone alignment is normal. No fracture or dislocation is seen. The glenohumeral joint is normal. There is arthritis at the acromioclavicular joint. Soft tissues are unremarkable. IMPRESSION: Arthritis at the acromioclavicular joint. EXAMINATION: Chest x-ray CLINICAL INFORMATION: Pain post fall COMPARISON: Previous chest x-ray August 2016 TECHNIQUE: One view of the chest FINDINGS: The cardiac silhouette is slightly enlarged. Thoracic aorta is tortuous. The pulmonary tavon appear prominent. There is a new right subclavian dual chamber pacemaker. There is a small dense right upper lobe nodule that appears unchanged. The lungs are otherwise clear. There is no pleural effusion or pneumothorax. There are surgical clips in the left axilla. There are degenerative changes of the spine. IMPRESSION: No evidence for acute disease in the chest. Prominent pulmonary tavon questionable for enlarged pulmonary arteries versus lymphadenopathy. Head CT 03/16/21 15:12 IMPRESSION: 1. No acute intracranial pathology. 2. No CT evidence of acute cervical spine fracture or traumatic subluxation 3. Irregular 1.5 cm lesion right upper lobe. This is chronic unchanged since CAT scan of December 03, 2019. Shoulder X-Ray 03/16/21 15:12 IMPRESSION: Arthritis. No fracture or dislocation seen. EXAMINATION: Right elbow x-ray CLINICAL INFORMATION: Pain post fall COMPARISON: None. TECHNIQUE: 3 views of the right elbow FINDINGS: There is a comminuted displaced fracture of the olecranon. No other fracture is seen. Joint spaces are normal. There is an elbow joint effusion. There is soft tissue swelling over the fracture. IMPRESSION: Comminuted displaced fracture of the olecranon. EXAMINATION: Right shoulder x-ray CLINICAL INFORMATION: Pain post fall COMPARISON: None. TECHNIQUE: 3 views of the right shoulder FINDINGS: Bone alignment is normal. No fracture or dislocation is seen. The glenohumeral joint is normal. There is arthritis at the acromioclavicular joint. Soft tissues are unremarkable. IMPRESSION: Arthritis at the acromioclavicular joint. EXAMINATION: Chest x-ray CLINICAL INFORMATION: Pain post fall COMPARISON: Previous chest x-ray August 2016 TECHNIQUE: One view of the chest FINDINGS: The cardiac silhouette is slightly enlarged. Thoracic aorta is tortuous. The pulmonary tavon appear prominent. There is a new right subclavian dual chamber pacemaker. There is a small dense right upper lobe nodule that appears unchanged. The lungs are otherwise clear. There is no pleural effusion or pneumothorax. There are surgical clips in the left axilla. There are degenerative changes of the spine. IMPRESSION: No evidence for acute disease in the chest. Prominent pulmonary tavon questionable for enlarged pulmonary arteries versus lymphadenopathy. Wrist X-Ray 03/16/21 15:12 IMPRESSION: Arthritis. No fracture or dislocation seen. EXAMINATION: Right elbow x-ray CLINICAL INFORMATION: Pain post fall COMPARISON: None. TECHNIQUE: 3 views of the right elbow FINDINGS: There is a comminuted displaced fracture of the olecranon. No other fracture is seen. Joint spaces are normal. There is an elbow joint effusion. There is soft tissue swelling over the fracture. IMPRESSION: Comminuted displaced fracture of the olecranon. EXAMINATION: Right shoulder x-ray CLINICAL INFORMATION: Pain post fall COMPARISON: None. TECHNIQUE: 3 views of the right shoulder FINDINGS: Bone alignment is normal. No fracture or dislocation is seen. The glenohumeral joint is normal. There is arthritis at the acromioclavicular joint. Soft tissues are unremarkable. IMPRESSION: Arthritis at the acromioclavicular joint. EXAMINATION: Chest x-ray CLINICAL INFORMATION: Pain post fall COMPARISON: Previous chest x-ray August 2016 TECHNIQUE: One view of the chest FINDINGS: The cardiac silhouette is slightly enlarged. Thoracic aorta is tortuous. The pulmonary tavon appear prominent. There is a new right subclavian dual chamber pacemaker. There is a small dense right upper lobe nodule that appears unchanged. The lungs are otherwise clear. There is no pleural effusion or pneumothorax. There are surgical clips in the left axilla. There are degenerative changes of the spine. IMPRESSION: No evidence for acute disease in the chest. Prominent pulmonary tavon questionable for enlarged pulmonary arteries versus lymphadenopathy. Chest X-Ray 03/16/21 15:13 IMPRESSION: Arthritis. No fracture or dislocation seen. EXAMINATION: Right elbow x-ray CLINICAL INFORMATION: Pain post fall COMPARISON: None. TECHNIQUE: 3 views of the right elbow FINDINGS: There is a comminuted displaced fracture of the olecranon. No other fracture is seen. Joint spaces are normal. There is an elbow joint effusion. There is soft tissue swelling over the fracture. IMPRESSION: Comminuted displaced fracture of the olecranon. EXAMINATION: Right shoulder x-ray CLINICAL INFORMATION: Pain post fall COMPARISON: None. TECHNIQUE: 3 views of the right shoulder FINDINGS: Bone alignment is normal. No fracture or dislocation is seen. The glenohumeral joint is normal. There is arthritis at the acromioclavicular joint. Soft tissues are unremarkable. IMPRESSION: Arthritis at the acromioclavicular joint. EXAMINATION: Chest x-ray CLINICAL INFORMATION: Pain post fall COMPARISON: Previous chest x-ray August 2016 TECHNIQUE: One view of the chest FINDINGS: The cardiac silhouette is slightly enlarged. Thoracic aorta is tortuous. The pulmonary tavon appear prominent. There is a new right subclavian dual chamber pacemaker. There is a small dense right upper lobe nodule that appears unchanged. The lungs are otherwise clear. There is no pleural effusion or pneumothorax. There are surgical clips in the left axilla. There are degenerative changes of the spine. IMPRESSION: No evidence for acute disease in the chest. Prominent pulmonary tavon questionable for enlarged pulmonary arteries versus lymphadenopathy. Elbow X-Ray 03/25/21 14:11 IMPRESSION: No change in the comminuted displaced olecranon fracture. Knee X-Ray 04/01/21 11:28 IMPRESSION: Moderate to large joint effusion and degenerative changes. Elbow X-Ray 04/01/21 13:59 IMPRESSION: Comminuted fracture proximal olecranon. DS: Summary Hospital Course Hospital Course: The patient was initially admitted for manic symptoms elicited by racing thoughts, irritability, anxiety and depressive symptoms such as depressed mood l ack of energy and feelings of hopelessness. Please see HPI over the admission note for more details. On admission, the patient was assessed and we decided to use olanzapine as a mood stabilizer since the patient had very poor sleep. It was titrated slowly up to 10 mg p.o. q.h.s. with improvement of the racing thoughts. Even though that his hypomanic symptoms were improved, the patient was very dysphoric. He was restarted on Wellbutrin XL up to 150 mg p.o. q.h.s. without side effects and some improvement. The patient historically had responded very well to ECT. The patient and his family advocated for the possibility of this treatment to accelerate the dysphoria. We decided to continue ECT, 4 sessions were scheduled Wednesdays and Monday with no side effect and a remark improvement of his mood. The patient's depression improved, he was future oriented and there were no side effects. Since there were no safety concerns discharge planning was discussed Time spent discussing smoking cessation with patient: 3 to 10 minutes Status at Discharge Cognitive/behavioral status at discharge: At baseline Functional status at discharge: independent ambulation Overall status at discharge: patient is back to baseline Time Spent with Patient Time attestation: Total time spent providing and/or coordinating discharge services: Time spent: Less than 30 minutes Discharge Plan Discharge Patient Disposition: Home, Self-Care Discharge Diagnosis: Bipolar disorder type 1 Referrals: [facility] [Other] - 1 Week (Referral made on 04/15/21 for [facility]. They will contact family to schedule home visit when discharged from hospital. Please follow up in 5 days if you have not received phone call from them at number stated above.) Dr. Arianne Pozo (psychiatrists) [Other] - 05/18/21 9:30 am (Appointment scheduled with Dr. Pozo on May 18 @ 9:30 AM IN OFFICE VISIT.) Ortho Appointment Chata Castaneda [Other] - 04/22/21 11:15 am (Appt scheduled with Chata Castaneda for , 04/22/21 @ 11:15 AM.) [facility] Outpatient therapists @ [facility] [Other] - 1 Week (Kurt placed on waitlist with [facility] for male outpatient therapists for 1:1 individual counseling. Please call weekly to check on wait list status.) ECT outpatient treatments [Other] - 04/19/21 6:00 am (ECT will be 6 AM every Monday morning for next 4-[address] Whitmore.) [facility] [Other] - 1 Week ([facility] will start MONDAY - 04.19.21 Please FAX DC Paperwork to ATTN: Daniela Price # ) Teresa Duran MD [Primary Care Provider] - 1 Week Discharge Medications: New celecoxib 200 mg Capsule 200 mg PO BID 30 Days Qty: 60 RF: 0 trazodone 50 mg Tablet 50 mg PO BEDTIME PRN (Reason: Insomnia) 30 Days RF: 0 olanzapine 10 mg Tablet 10 mg PO BEDTIME 30 Days Qty: 30 RF: 0 amlodipine 2.5 mg Tablet 2.5 mg PO BEDTIME 30 Days Qty: 30 RF: 0 bupropion HCl 150 mg Tablet Extended Release 24 Hr 150 mg PO DAILY 30 Days Qty: 30 RF: 0 metoprolol tartrate 25 mg tablet 12.5 mg PO BID Qty: 30 RF: 0 Continued atorvastatin 80 mg tablet 80 mg PO DAILY 90 Days Qty: 90 RF: 3 alendronate 70 mg tablet 70 mg PO SA 30 Days Qty: 5 RF: 0 lamotrigine 25 mg tablet 25 mg PO BID Qty: 60 RF: 0 isosorbide mononitrate 60 mg tablet extended release 24 hr 60 mg PO DAILY 90 Days Qty: 90 RF: 3 pantoprazole 40 mg tablet,delayed release (DR/EC) 40 mg PO DAILY 30 Days Qty: 30 RF: 0 metformin 500 mg tablet extended release 24 hr 500 mg PO QAM 30 Days Qty: 30 RF: 0 finasteride 5 mg tablet 5 mg PO DAILY 30 Days Qty: 30 RF: 0 alfuzosin 10 mg tablet extended release 24 hr 1 tab PO BEDTIME 90 Days Qty: 90 RF: 0 bimatoprost 0.01 % drops 1 drp ophthalmic (eye) BEDTIME RF: 0 Changed melatonin 3 mg tablet 3 mg PO BEDTIME PRN (Reason: insomnia) Qty: 30 RF: 0 lorazepam 0.5 mg tablet 0.5 mg PO BID PRN (Reason: anxiety) 30 Days Qty: 60 RF: 0 Discontinued metoprolol tartrate 25 mg tablet 25 mg PO BID 90 Days Qty: 180 RF: 1 olanzapine 2.5 mg tablet 1 tab PO BEDTIME RF: 0 bupropion HCl 300 mg tablet extended release 24 hr 1 tab PO DAILY RF: 0 sulfamethoxazole-trimethoprim [Bactrim DS] 800-160 mg Tablet 1 tab PO BID RF: 0 Discharge Orders: Discharge Order (Routine); Ordered 04/16/21 Ordered By: Paul Whitmore Diet: advance to usual diet Activity on Discharge: As tolerated Stand Alone Forms: Patient Portal Discharge page Care Plan Goals: Care plan goals achieved in the unit Health Concerns: Medically stable, he should continue with his outpatient providers Plan of Treatment: Continue medication management. Continue ECT once a week for 4 weeks Assessment: The patient is an elderly male with a history of bipolar disorder and recent cognitive impairment who was admitted for manic symptoms in the context of discontinuation of lithium. He is more stable with the combination of Zyprexa and Wellbutrin. He also improved with ECT. At this moment there is no evidence of safety concerns he is ready for discharge
--- NOTE | 2021-04-16 14:21 | PC.NURSE ---
Pt left the floor at 1315 with all belongings, with his and daughter present. Pt reports he is ready for discharge, pt reports he feels safe with discharge. Pt denies AH;VH. Pt denies SI;HI. All discharge paperwork completed and faxed to PCP.
== END 2021-04-16 13:15 | disposition home or self-care (01) | DRG 885 ==
LOC: HO.ED 03-18 14:11 → HO.PGERI 03-18 14:28
PROVIDERS: Emergency Medicine; Physician Assistant; Registered Nurse; Admitting Provider Psychiatry & Neurology Psychiatry; Emergency Provider Emergency Medicine Emergency Medical Services; PCP Internal Medicine; Visit Provider Psychiatry & Neurology Psychiatry
PROC: (CPT 90870; principal; 2021-04-09 08:00)
PROC: GZB4ZZZ Other Electroconvulsive Therapy (ICD-10-PCS; CPT 90870; principal; 2021-04-12 07:00)
DX: F31.9 Bipolar disorder, unspecified (principal); S42.401A Unspecified fracture of lower end of right humerus, initial encounter for closed fracture; I25.10 Atherosclerotic heart disease of native coronary artery without angina pectoris; E11.9 Type 2 diabetes mellitus without complications; W18.30XA Fall on same level, unspecified, initial encounter; Y92.009 Unspecified place in unspecified non-institutional (private) residence as the place of occurrence of the external cause; R29.6 Repeated falls; M25.462 Effusion, left knee; Z91.81 History of falling; E78.5 Hyperlipidemia, unspecified; I49.5 Sick sinus syndrome; Z20.822 Contact with and (suspected) exposure to COVID-19; Z95.1 Presence of aortocoronary bypass graft; Z79.1 Long term (current) use of non-steroidal anti-inflammatories (NSAID); Z79.899 Other long term (current) drug therapy
CPT/HCPCS: 36415; 70450; 71045; 72125; 73030; 73070; 73080; 73110; 73560; 80048; 80076; 80143; 80307; 81003; 82077; 82140; 82550; 82565; 82803; 82947; 83605; 83735; 84443; 84484; 85025; 87040; 87635; 90870; 93005; 96360; 96372; 97161; 97162; 99285; J0330; J1020; J1610; J1885; J2405

== ENCOUNTER 2021-03-22 07:22 | Outpatient (REF) | payer MEDICARE, SELFPAY | END 2021-03-22 07:23 | disposition home or self-care (01) | LOC: HO.HOSX 07:22 | PROVIDERS: Visit Provider Physician Assistant | DX: Z13.89 Encounter for screening for other disorder (principal) ==

== ENCOUNTER 2021-04-19 06:01 | Day surgery (SDC) | payer MEDICARE, SELFPAY ==
[2021-04-19] VITALS (7 sets, daily range): BP systolic 107–145; BP diastolic 58–80; PULSE 55; RESP 12–17; TEMP 36.3–36.6; O2SAT 93–99; BMI 26.6
--- NOTE | 2021-04-19 06:54 | MHC.SHP ---
Pre-Procedural Eval Section A Date of Service: 04/19/21 The patient is an INPATIENT: No Changes since office visit: No Cold of Flu in the past 2 weeks, No New Medical Problems, No Changes in Medication and No Patient answered all questions The History & Physical has been completed within 30 days and I have reviewed it.: Yes Section B Chief Complaint: major depression Allergies: Allergies Allergy/AdvReac Type Severity Reaction Status Date / Time metoprolol AdvReac Unknown bradycardia Verified 03/16/21 14:28 timolol AdvReac Unknown low bp Verified 03/16/21 14:28 tamsulosin [From Flomax] AdvReac Diarrhea Verified 03/22/21 13:42 beta blockers AdvReac Hypotension Uncoded 03/22/21 13:46 Plan I have reviewed the history and physical and performed a pertinent physical examination on my patient. No changes have occurred unless specified.
--- NOTE | 2021-04-19 06:57 | P.CONAN_ITS ---
[facility] Active Problems Active Problems: All Active Problems (Updated 03/17/21 @ 17:33 by Desiree canas) Bipolar disorder (Acute) Acute confusion (Acute) Elbow fracture, right (Acute) Major depression (Acute) Acute alteration in mental status (Acute) Chest pressure (Acute) CAD (coronary artery disease) (Acute) Cardiac pacemaker in situ (Acute) HTN (hypertension) (Acute) Diabetes (Acute) Hyperlipidemia (Acute) Past Medical History Medical History CAD (coronary artery disease) Cardiac pacemaker in situ Diabetes History of left breast cancer HTN (hypertension) Hyperlipidemia Sick sinus syndrome Family History Family History Father CVD (cardiovascular disease) Mother CVD (cardiovascular disease) Brother CVD (cardiovascular disease) Sister Diabetes Son Diabetes Family history of problems with anesthesia: No Surgical History Surgical History History of permanent cardiac pacemaker placement Hx of CABG Hx of cataract surgery Hx of mastectomy History of Problems with Anesthesia: No Social History Social History Household Members: Spouse Housing: House Do you presently have visiting nurse or other home services: No Alcohol intake: never Patient Tobacco Use Status: Former Tobacco user Tobacco use type: Cigarette Advance Directives: Yes Advance Directives on File: Yes Advance Directives Date on File: 03/17/21 service: No Sexual orientation: Straight/Heterosexual Meds Allergies Allergy/AdvReac Type Severity Reaction Status Date / Time metoprolol AdvReac Unknown bradycardia Verified 03/16/21 14:28 timolol AdvReac Unknown low bp Verified 03/16/21 14:28 tamsulosin [From Flomax] AdvReac Diarrhea Verified 03/22/21 13:42 beta blockers AdvReac Hypotension Uncoded 03/22/21 13:46 Home Medications Medication Instructions Recorded Confirmed Last Taken Type bimatoprost 0.01 % eye drops 1 drp OPHTHALMIC (EYE) BEDTIME 05/28/20 03/16/21 03/15/21 History Exam Exam Date and Time: April 19, 2021 0657 Height,Weight and Vital Signs: Height 5 ft 5 in Weight 72.575 kg Last Vital Signs Temp 97.3 F 04/19/21 06:35 Pulse 55 04/19/21 06:35 Resp 16 04/19/21 06:35 BP 129/70 04/19/21 06:35 Pulse Ox 95 04/19/21 06:35 Airway Mallampati Class: III TM Dist: >3cm Neck ROM: Full Assessment and Plan Final Anesthetic Review Family History of Problems with Anesthesia: No History of Problems with Anesthesia: No
[2021-04-19 07:04] LABS: Glucose, Whole Blood 124 mg/dL (60-115)
--- NOTE | 2021-04-19 07:09 | HO.ECTPROC ---
ECT Procedure Note Diagnosis/Treatment Date of Service: 04/19/21 Diagnosis: Bipolar disorder Previous ECT Date: 05/15/20 Current Treatment Number: 5 Treatment: Series Interval Clinical Notes: The patient reported improvement of mood, he was already discharged and he is at home. ECT Settings Device: THYMATRON DGx Electrode Placement: Right Unilateral Program/Pulse Width: 0.25 Energy Percent: 25 Seizure Duration By EEG (in seconds): 52 By Motor Observation (in seconds): 0 (not registered?!) Medications Administration General Anesthetic: Etomidate (14) Muscle Relaxant: Succinylcholine (100) Ancillary Medications Analgesics: Torodol - Pre ECT Anti-emetics: Zofran - Pre ECT Miscillaneous Medications: Propofol Airway Management Airway Management: Bag Mask Ventilation Treatment Recommendations No Changes Recommended: No change Pt Tolerated Procedure w/o Issue: Yes
== END 2021-04-19 08:49 | disposition home or self-care (01) ==
PROVIDERS: PCP Internal Medicine; Visit Provider Psychiatry & Neurology Psychiatry
PROC: (CPT 90870; principal; 2021-04-19 07:30)
DX: F31.5 Bipolar disorder, current episode depressed, severe, with psychotic features (principal); F30.8 Other manic episodes; F03.90 Unspecified dementia, unspecified severity, without behavioral disturbance, psychotic disturbance, mood disturbance, and anxiety; I10 Essential (primary) hypertension; Z79.899 Other long term (current) drug therapy
CPT/HCPCS: 82947; 90870; J0330; J1885; J2405

== ENCOUNTER 2021-04-26 07:19 | Day surgery (SDC) | payer MEDICARE, SELFPAY ==
[2021-04-26] VITALS (7 sets, daily range): BP systolic 110–150; BP diastolic 62–80; PULSE 55–60; RESP 16–20; TEMP 36.2–36.3; O2SAT 95–97; BMI 26.6
[2021-04-26] MEDS: Lactated Ringers 1,000 ML 50 ML IVCONT (07:10)
--- NOTE | 2021-04-26 07:28 | P.HPSUR_ITS ---
Pre-Procedural Eval Section A Date of Service: 04/26/21 Changes since office visit: Yes Cold of Flu in the past 2 weeks, Yes New Medical Problems, Yes Changes in Medication and Yes Patient answered all questions The History & Physical has been completed within 30 days and I have reviewed i t.: Yes Section B Chief Complaint: depression Allergies: Allergies Allergy/AdvReac Type Severity Reaction Status Date / Time metoprolol AdvReac Unknown bradycardia Verified 03/16/21 14:28 timolol AdvReac Unknown low bp Verified 03/16/21 14:28 tamsulosin [From Flomax] AdvReac Diarrhea Verified 03/22/21 13:42 beta blockers AdvReac Hypotension Uncoded 03/22/21 13:46 Plan I have reviewed the history and physical and performed a pertinent physical examination on my patient. No changes have occurred unless specified.
--- NOTE | 2021-04-26 07:30 | HO.ECTPROC ---
ECT Procedure Note Diagnosis/Treatment Date of Service: 04/26/21 Diagnosis: Bipolar disorder Previous ECT Date: 04/19/21 Current Treatment Number: 6 Treatment: Maintenance Interval Clinical Notes: The patient reported good and stable mood. no side effects with previous ECT. ECT Settings Device: THYMATRON DGx Electrode Placement: Right Unilateral Program/Pulse Width: 0.25 Energy Percent: 25 Seizure Duration By EEG (in seconds): 0 By Motor Observation (in seconds): 31 Medications Administration General Anesthetic: Etomidate (16) Muscle Relaxant: Succinylcholine (100) Ancillary Medications Analgesics: Torodol - Pre ECT Anti-emetics: Zofran - Pre ECT Miscillaneous Medications: Propofol (30) Airway Management Airway Management: Bag Mask Ventilation Treatment Recommendations No Changes Recommended: No change
--- NOTE | 2021-04-26 07:32 | P.CONAN_ITS ---
[facility] Active Problems Active Problems: All Active Problems (Updated 04/24/21 @ 00:03 by Jamel García) Bipolar disorder (Acute) Chest pressure (Acute) CAD (coronary artery disease) (Acute) Cardiac pacemaker in situ (Acute) HTN (hypertension) (Acute) Diabetes (Acute) Hyperlipidemia (Acute) Past Medical History Medical History CAD (coronary artery disease) Cardiac pacemaker in situ Diabetes History of left breast cancer HTN (hypertension) Hyperlipidemia Sick sinus syndrome Family History Family History Father CVD (cardiovascular disease) Mother CVD (cardiovascular disease) Brother CVD (cardiovascular disease) Sister Diabetes Son Diabetes Family history of problems with anesthesia: No Surgical History Surgical History History of permanent cardiac pacemaker placement Hx of CABG Hx of cataract surgery Hx of mastectomy History of Problems with Anesthesia: No Social History Social History Household Members: Spouse Housing: House Do you presently have visiting nurse or other home services: No Alcohol intake: never Patient Tobacco Use Status: Former Tobacco user Tobacco use type: Cigarette Advance Directives: Yes Advance Directives on File: Yes Advance Directives Date on File: 03/17/21 Recently lost weight without trying: No service: No Sexual orientation: Straight/Heterosexual Meds Allergies Allergy/AdvReac Type Severity Reaction Status Date / Time metoprolol AdvReac Unknown bradycardia Verified 03/16/21 14:28 timolol AdvReac Unknown low bp Verified 03/16/21 14:28 tamsulosin [From Flomax] AdvReac Diarrhea Verified 03/22/21 13:42 beta blockers AdvReac Hypotension Uncoded 03/22/21 13:46 Home Medications Medication Instructions Recorded Confirmed Last Taken Type bimatoprost 0.01 % eye drops 1 drp OPHTHALMIC (EYE) BEDTIME 05/28/20 03/16/21 03/15/21 History Exam Exam Date and Time: April 26, 2021 0732 Height,Weight and Vital Signs: Height 5 ft 5 in Weight 72.575 kg Last Vital Signs Temp 97.2 F 04/26/21 07:22 Pulse 55 04/26/21 07:22 Resp 17 04/26/21 07:22 BP 146/80 H 04/26/21 07:22 Pulse Ox 97 04/26/21 07:22 Airway Mallampati Class: II TM Dist: >3cm Neck ROM: Full Heart: rrr Lungs: cta Assessment and Plan Assessment Anesthesia Assessment: Anesthesia Plan Discussed and Chart Reviewed Final Anesthetic Review Family History of Problems with Anesthesia: No History of Problems with Anesthesia: No NPO: Yes ASA Class: III Final Preanesthetic Review: No Changes in Pt Med Stat, Meds/Allgs Chart Reviewed and Consent Obtained/Reviewed Patient Risk: Intermediate Procedure Risk: Intermediate Anesthetic Plan Anesthetic Plan: GA Disposition: Standard PACU
== END 2021-04-26 09:33 | disposition home or self-care (01) ==
PROVIDERS: Visit Provider Psychiatry & Neurology Psychiatry
PROC: (CPT 90870; principal; 2021-04-26 07:30)
DX: F31.9 Bipolar disorder, unspecified (principal); I25.10 Atherosclerotic heart disease of native coronary artery without angina pectoris; Z95.1 Presence of aortocoronary bypass graft; I10 Essential (primary) hypertension; I49.5 Sick sinus syndrome; Z95.0 Presence of cardiac pacemaker; E11.9 Type 2 diabetes mellitus without complications; Z79.899 Other long term (current) drug therapy; Z88.8 Allergy status to other drugs, medicaments and biological substances; Z87.891 Personal history of nicotine dependence
CPT/HCPCS: 90870; J0330; J1885; J2405

== ENCOUNTER 2021-04-27 07:22 | Outpatient (REF) | payer MEDICARE, SELFPAY ==
--- NOTE | ~2021-04-27 | XR_ITS ---
EXAMINATION: XR ELBOW, RIGHT CLINICAL INFORMATION: Pain COMPARISON: Previous x-ray most recent 04/01/2021 TECHNIQUE: AP, lateral, and oblique views of the right elbow. FINDINGS: There is a comminuted displaced fracture of the olecranon. This does not appear changed. No other fracture is seen. The joint spaces are normal. There is a small elbow joint effusion. There is soft tissue swelling over the olecranon. XR/XR elbow RT min 3V IMPRESSION: No change in comminuted olecranon fracture.
== END 2021-04-27 07:23 | disposition home or self-care (01) ==
LOC: HO.HOSX 07:22
PROVIDERS: Visit Provider Physician Assistant
DX: S52.021D Displaced fracture of olecranon process without intraarticular extension of right ulna, subsequent encounter for closed fracture with routine healing (principal); Z87.891 Personal history of nicotine dependence
CPT/HCPCS: 73080; 99212

== ENCOUNTER 2021-05-03 05:59 | Day surgery (SDC) | payer MEDICARE, SELFPAY ==
[2021-05-03] VITALS (8 sets, daily range): BP systolic 106–148; BP diastolic 62–80; PULSE 55–58; RESP 15–17; TEMP 36.1–36.5; O2SAT 95–98; BMI 27.4
[2021-05-03 06:35] LABS: Glucose, Whole Blood 123 mg/dL (60-115)
--- NOTE | 2021-05-03 06:45 | P.CONAN_ITS ---
[facility] Active Problems Active Problems: All Active Problems (Updated 04/27/21 @ 10:45 by Chata nielsen PA-C) Fracture of olecranon process, right, closed (Acute) Unsteady gait (Acute) Bipolar disorder (Acute) Chest pressure (Acute) CAD (coronary artery disease) (Acute) Cardiac pacemaker in situ (Acute) HTN (hypertension) (Acute) Diabetes (Acute) Hyperlipidemia (Acute) Past Medical History Medical History CAD (coronary artery disease) Cardiac pacemaker in situ Diabetes History of left breast cancer HTN (hypertension) Hyperlipidemia Sick sinus syndrome Family History Family History Father CVD (cardiovascular disease) Mother CVD (cardiovascular disease) Brother CVD (cardiovascular disease) Sister Diabetes Son Diabetes Family history of problems with anesthesia: No Surgical History Surgical History History of permanent cardiac pacemaker placement Hx of CABG Hx of cataract surgery Hx of mastectomy History of Problems with Anesthesia: No Social History Social History Household Members: Spouse Housing: House Do you presently have visiting nurse or other home services: No Alcohol intake: never Patient Tobacco Use Status: Former Tobacco user Tobacco use type: Cigarette Advance Directives: Yes Advance Directives on File: Yes Advance Directives Date on File: 03/17/21 service: No Sexual orientation: Straight/Heterosexual Meds Allergies Allergy/AdvReac Type Severity Reaction Status Date / Time metoprolol AdvReac Unknown bradycardia Verified 04/27/21 10:37 timolol AdvReac Unknown low bp Verified 04/27/21 10:37 tamsulosin [From Flomax] AdvReac Diarrhea Verified 04/27/21 10:37 beta blockers AdvReac Hypotension Uncoded 04/27/21 10:37 Active Medications: Current Medications Lactated Ringer's (Lr) 1,000 mls @ 50 mls/hr IVCONT .Q20H [facility] Home Medications Medication Instructions Recorded Confirmed Last Taken Type bimatoprost 0.01 % eye drops 1 drp OPHTHALMIC (EYE) BEDTIME 05/28/20 03/16/21 03/15/21 History bupropion HCl 300 mg 24 hr tablet, 300 mg PO DAILY 04/27/21 Unknown History extended release olanzapine 2.5 mg tablet 2.5 mg PO BEDTIME 04/27/21 Unknown History Exam Exam Date and Time: May 03, 2021 06 Pertinent Lab Results Pertinent Lab Results: Laboratory Tests 05/03/21 06:31 POC Glucose 123 H Airway Mallampati Class: II TM Dist: >3cm Neck ROM: Full Heart: rrr Lungs: cta Assessment and Plan Assessment Anesthesia Assessment: Anesthesia Plan Discussed Final Anesthetic Review Family History of Problems with Anesthesia: No History of Problems with Anesthesia: No NPO: Yes (Sip water with meds) ASA Class: III Final Preanesthetic Review: No Changes in Pt Med Stat, Meds/Allgs Chart Reviewed and Consent Obtained/Reviewed Patient Risk: Intermediate Procedure Risk: Intermediate Anesthetic Plan Anesthetic Plan: GA Disposition: Standard PACU
--- NOTE | 2021-05-03 07:00 | MHC.SHP ---
Pre-Procedural Eval Section A Date of Service: 05/03/21 The patient is an INPATIENT: No Changes since office visit: No Cold of Flu in the past 2 weeks, No New Medical Problems, No Changes in Medication and No Patient answered all questions The History & Physical has been completed within 30 days and I have reviewed it.: Yes Section B Chief Complaint: Severe Depression Allergies: Allergies Allergy/AdvReac Type Severity Reaction Status Date / Time metoprolol AdvReac Unknown bradycardia Verified 04/27/21 10:37 timolol AdvReac Unknown low bp Verified 04/27/21 10:37 tamsulosin [From Flomax] AdvReac Diarrhea Verified 04/27/21 10:37 beta blockers AdvReac Hypotension Uncoded 04/27/21 10:37 Plan I have reviewed the history and physical and performed a pertinent physical examination on my patient. No changes have occurred unless specified.
--- NOTE | 2021-05-03 07:02 | HO.ECTPROC ---
ECT Procedure Note Diagnosis/Treatment Date of Service: 05/03/21 Diagnosis: Bipolar disorder Previous ECT Date: 04/26/21 Current Treatment Number: 7 Treatment: Maintenance Interval Clinical Notes: The patient denies new symptoms, denies depression or evans, stable, fully compliant with treatment. ECT Settings Device: THYMATRON DGx Electrode Placement: Right Unilateral Program/Pulse Width: 0.25 Energy Percent: 25 Seizure Duration By EEG (in seconds): 0 (EEG didn't registered seizure activity) By Motor Observation (in seconds): 31 Medications Administration General Anesthetic: Etomidate (14) Muscle Relaxant: Succinylcholine (100) Ancillary Medications Analgesics: Torodol - Pre ECT Anti-emetics: Zofran - Pre ECT Miscillaneous Medications: Propofol (30) Airway Management Airway Management: Bag Mask Ventilation Treatment Recommendations No Changes Recommended: No change Pt Tolerated Procedure w/o Issue: Yes
== END 2021-05-03 08:55 | disposition home or self-care (01) ==
PROVIDERS: PCP Internal Medicine; Visit Provider Psychiatry & Neurology Psychiatry
PROC: (CPT 90870; principal; 2021-05-03 07:30)
DX: F31.9 Bipolar disorder, unspecified (principal); I49.5 Sick sinus syndrome; I25.10 Atherosclerotic heart disease of native coronary artery without angina pectoris; I10 Essential (primary) hypertension; Z95.1 Presence of aortocoronary bypass graft; Z95.0 Presence of cardiac pacemaker; E78.5 Hyperlipidemia, unspecified; E11.9 Type 2 diabetes mellitus without complications; Z79.84 Long term (current) use of oral hypoglycemic drugs; Z79.899 Other long term (current) drug therapy; Z88.8 Allergy status to other drugs, medicaments and biological substances; Z87.891 Personal history of nicotine dependence
CPT/HCPCS: 82947; 90870; J0330; J1885; J2405

== ENCOUNTER 2021-05-10 05:53 | Day surgery (SDC) | payer MEDICARE, SELFPAY ==
[2021-05-10] VITALS (7 sets, daily range): BP systolic 115–139; BP diastolic 51–62; PULSE 55–67; RESP 16–20; TEMP 36.1–36.4; O2SAT 93–96; BMI 26.6
--- NOTE | 2021-05-10 07:02 | HO.ANESPROP2 ---
[facility] Active Problems Active Problems: All Active Problems (Updated 04/27/21 @ 10:45 by Chata Castaneda PA-C) Fracture of olecranon process, right, closed (Acute) Unsteady gait (Acute) Bipolar disorder (Acute) Chest pressure (Acute) CAD (coronary artery disease) (Acute) Cardiac pacemaker in situ (Acute) HTN (hypertension) (Acute) Diabetes (Acute) Hyperlipidemia (Acute) Past Medical History Medical History CAD (coronary artery disease) Cardiac pacemaker in situ Diabetes History of left breast cancer HTN (hypertension) Hyperlipidemia Sick sinus syndrome Family History Family History Father CVD (cardiovascular disease) Mother CVD (cardiovascular disease) Brother CVD (cardiovascular disease) Sister Diabetes Son Diabetes Family history of problems with anesthesia: No Surgical History Surgical History History of permanent cardiac pacemaker placement Hx of CABG Hx of cataract surgery Hx of mastectomy History of Problems with Anesthesia: No Social History Social History Household Members: Spouse Housing: House Do you presently have visiting nurse or other home services: No Alcohol intake: never Patient Tobacco Use Status: Former Tobacco user Tobacco use type: Cigarette Use of substances other than those prescribed or required for medical reasons: No Are you DNR?: No Advance Directives: Yes Advance Directives on File: Yes Advance Directives Date on File: 03/17/21 service: No Sexual orientation: Straight/Heterosexual Meds Allergies Allergy/AdvReac Type Severity Reaction Status Date / Time metoprolol AdvReac Unknown bradycardia Verified 04/27/21 10:37 timolol AdvReac Unknown low bp Verified 04/27/21 10:37 tamsulosin [From Flomax] AdvReac Diarrhea Verified 04/27/21 10:37 beta blockers AdvReac Hypotension Uncoded 04/27/21 10:37 Home Medications Medication Instructions Recorded Confirmed Last Taken Type bimatoprost 0.01 % eye drops 1 drp OPHTHALMIC (EYE) BEDTIME 05/28/20 03/16/21 03/15/21 History bupropion HCl 300 mg 24 hr tablet, 300 mg PO DAILY 04/27/21 Unknown History extended release olanzapine 2.5 mg tablet 2.5 mg PO BEDTIME 04/27/21 Unknown History Exam Exam Date and Time: May 10, 2021 0702 Height,Weight and Vital Signs: Height 5 ft 5 in Weight 72.575 kg Last Vital Signs Temp 97.0 F 05/10/21 06:53 Pulse 55 05/10/21 06:53 Resp 16 05/10/21 06:53 BP 123/59 L 05/10/21 06:53 Pulse Ox 95 05/10/21 06:53 Airway Mallampati Class: II TM Dist: >3cm Neck ROM: Full Heart: rrr Lungs: cta Assessment and Plan Assessment Anesthesia Assessment: Anesthesia Plan Discussed and Chart Reviewed Final Anesthetic Review Family History of Problems with Anesthesia: No History of Problems with Anesthesia: No NPO: Yes ASA Class: III Final Preanesthetic Review: No Changes in Pt Med Stat, Meds/Allgs Chart Reviewed and Consent Obtained/Reviewed Patient Risk: Intermediate Procedure Risk: Intermediate Anesthetic Plan Anesthetic Plan: GA Disposition: Standard PACU
[2021-05-10 07:07] LABS: Glucose, Whole Blood 141 mg/dL (60-115)
[2021-05-10] MEDS: Lactated Ringers 1,000 ML 50 ML IVCONT (07:09)
--- NOTE | 2021-05-10 07:26 | MHC.SHP ---
Pre-Procedural Eval Section A Date of Service: 05/10/21 The patient is an INPATIENT: No Changes since office visit: No Cold of Flu in the past 2 weeks, No New Medical Problems, No Changes in Medication and No Patient answered all questions The History & Physical has been completed within 30 days and I have reviewed it.: No Section B Chief Complaint: Severe Depression Details of Present Illness: The patient reported stable mood with medications and weekly ECT Relevant Family History (Specify if Yes): No Relevant Social History: None Present Medications: see Short Stay Collaborative assessment Medical History: No relevant PMH History of Previous Operations: No relevant previous surgery Allergies: Allergies Allergy/AdvReac Type Severity Reaction Status Date / Time metoprolol AdvReac Unknown bradycardia Verified 04/27/21 10:37 timolol AdvReac Unknown low bp Verified 04/27/21 10:37 tamsulosin [From Flomax] AdvReac Diarrhea Verified 04/27/21 10:37 beta blockers AdvReac Hypotension Uncoded 04/27/21 10:37 Review of Systems Sugical H&P ROS: Negative: Constitution, Cardiovascular, Respiratory, Neurological, Psychiatric, Hem-Onc, Allergic/Immunologic, Gastrointestinal, Genitourinary, Musculoskeletal, Integumentary, Endocrine and Eyes/Ears/Nose/Throat Exam Surgical H&P Exam: Normal: HEENT, Normal: Heart, Normal: Lungs, Normal: Extremities, Normal: Abdomen, Normal: Skin and Normal: Neurological Plan Diagnosis/Plan: Unchanged I have reviewed the history and physical and performed a pertinent physical examination on my patient. No changes have occurred unless specified.
--- NOTE | 2021-05-10 07:27 | HO.ECTPROC ---
ECT Procedure Note Diagnosis/Treatment Date of Service: 05/10/21 Diagnosis: Bipolar disorder Previous ECT Date: 05/03/21 Treatment: Maintenance Interval Clinical Notes: The patient denies new symptoms, stable mood. ECT Settings Device: THYMATRON DGx Electrode Placement: Right Unilateral Program/Pulse Width: 0.25 Energy Percent: 25 Seizure Duration By EEG (in seconds): 0 (seizure not recorded by EEG but there was a motor seizure over 40s) By Motor Observation (in seconds): 41 Medications Administration General Anesthetic: Etomidate (16) Muscle Relaxant: Succinylcholine (100) Ancillary Medications Analgesics: Torodol - Pre ECT Anti-emetics: Zofran - Pre ECT Miscillaneous Medications: Propofol Airway Management Airway Management: Bag Mask Ventilation Treatment Recommendations No Changes Recommended: No change
== END 2021-05-10 09:01 | disposition home or self-care (01) ==
PROVIDERS: PCP Internal Medicine; Visit Provider Psychiatry & Neurology Psychiatry
PROC: (CPT 90870; principal; 2021-05-10 07:00)
DX: F31.4 Bipolar disorder, current episode depressed, severe, without psychotic features (principal); I25.10 Atherosclerotic heart disease of native coronary artery without angina pectoris; I10 Essential (primary) hypertension; Z95.1 Presence of aortocoronary bypass graft; I49.5 Sick sinus syndrome; Z95.0 Presence of cardiac pacemaker; E11.9 Type 2 diabetes mellitus without complications; Z79.84 Long term (current) use of oral hypoglycemic drugs; Z79.899 Other long term (current) drug therapy; Z87.891 Personal history of nicotine dependence; Z88.8 Allergy status to other drugs, medicaments and biological substances
CPT/HCPCS: 82947; 90870; J0330; J1885; J2405

== ENCOUNTER 2021-05-17 05:57 | Day surgery (SDC) | payer MEDICARE, SELFPAY ==
[2021-05-17] VITALS (8 sets, daily range): BP systolic 132–197; BP diastolic 76–89; PULSE 55–56; RESP 16–18; TEMP 36.1; O2SAT 94–98; BMI 26.6; BMI 26.7
--- NOTE | 2021-05-17 06:43 | HO.ANESPROP2 ---
[facility] Active Problems Active Problems: All Active Problems (Updated 04/27/21 @ 10:45 by Chata Castaneda PA-C) Fracture of olecranon process, right, closed (Acute) Unsteady gait (Acute) Bipolar disorder (Acute) Chest pressure (Acute) CAD (coronary artery disease) (Acute) Cardiac pacemaker in situ (Acute) HTN (hypertension) (Acute) Diabetes (Acute) Hyperlipidemia (Acute) Past Medical History Medical History CAD (coronary artery disease) Cardiac pacemaker in situ Diabetes History of left breast cancer HTN (hypertension) Hyperlipidemia Sick sinus syndrome Family History Family History Father CVD (cardiovascular disease) Mother CVD (cardiovascular disease) Brother CVD (cardiovascular disease) Sister Diabetes Son Diabetes Family history of problems with anesthesia: No Surgical History Surgical History History of permanent cardiac pacemaker placement Hx of CABG Hx of cataract surgery Hx of mastectomy History of Problems with Anesthesia: No Social History Social History Household Members: Spouse Housing: House Do you presently have visiting nurse or other home services: No Alcohol intake: never Patient Tobacco Use Status: Former Tobacco user Tobacco use type: Cigarette Advance Directives: Yes Advance Directives on File: Yes Advance Directives Date on File: 03/17/21 service: No Sexual orientation: Straight/Heterosexual Meds Allergies Allergy/AdvReac Type Severity Reaction Status Date / Time metoprolol AdvReac Unknown bradycardia Verified 04/27/21 10:37 timolol AdvReac Unknown low bp Verified 04/27/21 10:37 tamsulosin [From Flomax] AdvReac Diarrhea Verified 04/27/21 10:37 beta blockers AdvReac Hypotension Uncoded 04/27/21 10:37 Home Medications Medication Instructions Recorded Confirmed Last Taken Type bimatoprost 0.01 % eye drops 1 drp OPHTHALMIC (EYE) BEDTIME 05/28/20 03/16/21 03/15/21 History bupropion HCl 300 mg 24 hr tablet, 300 mg PO DAILY 04/27/21 Unknown History extended release olanzapine 2.5 mg tablet 2.5 mg PO BEDTIME 04/27/21 Unknown History Exam Exam Date and Time: May 17, 2021 0643 Airway Mallampati Class: II TM Dist: >3cm Neck ROM: Full Heart: rrr Lungs: cta Assessment and Plan Assessment Anesthesia Assessment: Anesthesia Plan Discussed and Chart Reviewed Final Anesthetic Review Family History of Problems with Anesthesia: No History of Problems with Anesthesia: No NPO: Yes ASA Class: III Final Preanesthetic Review: No Changes in Pt Med Stat, Meds/Allgs Chart Reviewed and Consent Obtained/Reviewed Patient Risk: Intermediate Procedure Risk: Intermediate Anesthetic Plan Anesthetic Plan: GA Disposition: Standard PACU
[2021-05-17 06:48] LABS: Glucose, Whole Blood 139 mg/dL (60-115)
--- NOTE | 2021-05-17 07:04 | HO.ECTPROC ---
ECT Procedure Note Diagnosis/Treatment Date of Service: 05/17/21 Diagnosis: Bipolar disorder Previous ECT Date: 05/10/21 Treatment: Maintenance Interval Clinical Notes: the patient reported stable mood ECT Settings Device: THYMATRON DGx Electrode Placement: Right Unilateral Program/Pulse Width: 0.25 Energy Percent: 25 Seizure Duration By EEG (in seconds): 0 (not recorded on EEG but seizure activity up to 47s) By Motor Observation (in seconds): 46 Medications Administration General Anesthetic: Etomidate (16) Muscle Relaxant: Succinylcholine (100) Ancillary Medications Analgesics: Torodol - Pre ECT Anti-emetics: Zofran - Pre ECT Airway Management Airway Management: Bag Mask Ventilation Treatment Recommendations No Changes Recommended: No change Pt Tolerated Procedure w/o Issue: Yes
--- NOTE | 2021-05-17 07:04 | MHC.SHP ---
Pre-Procedural Eval Section A Date of Service: 05/17/21 The patient is an INPATIENT: No Changes since office visit: No Cold of Flu in the past 2 weeks, No New Medical Problems, No Changes in Medication and No Patient answered all questions The History & Physical has been completed within 30 days and I have reviewed it.: Yes Section B Chief Complaint: depression Allergies: Allergies Allergy/AdvReac Type Severity Reaction Status Date / Time metoprolol AdvReac Unknown bradycardia Verified 04/27/21 10:37 timolol AdvReac Unknown low bp Verified 04/27/21 10:37 tamsulosin [From Flomax] AdvReac Diarrhea Verified 04/27/21 10:37 beta blockers AdvReac Hypotension Uncoded 04/27/21 10:37 Plan I have reviewed the history and physical and performed a pertinent physical examination on my patient. No changes have occurred unless specified.
== END 2021-05-17 08:55 | disposition home or self-care (01) ==
PROVIDERS: PCP Internal Medicine; Visit Provider Psychiatry & Neurology Psychiatry
PROC: (CPT 90870; principal; 2021-05-17 07:00)
DX: F31.9 Bipolar disorder, unspecified (principal); I25.10 Atherosclerotic heart disease of native coronary artery without angina pectoris; I49.5 Sick sinus syndrome; I10 Essential (primary) hypertension; Z95.1 Presence of aortocoronary bypass graft; Z95.0 Presence of cardiac pacemaker; E11.9 Type 2 diabetes mellitus without complications; Z79.4 Long term (current) use of insulin; Z79.899 Other long term (current) drug therapy; Z88.8 Allergy status to other drugs, medicaments and biological substances; Z87.891 Personal history of nicotine dependence; Z85.3 Personal history of malignant neoplasm of breast
CPT/HCPCS: 82947; 90870; J0330; J1885; J2405

== ENCOUNTER → 2021-05-25 12:29 | Outpatient (BNVA) | payer MEDICARE, SELFPAY | PROVIDERS: PCP Internal Medicine; Visit Provider Internal Medicine Cardiovascular Disease | DX: Z45.018 Encounter for adjustment and management of other part of cardiac pacemaker (principal); I25.10 Atherosclerotic heart disease of native coronary artery without angina pectoris | CPT/HCPCS: 93005; 99212 ==

== ENCOUNTER 2021-08-16 10:00 | Outpatient (RCR) | payer OTHER, MEDICARE, SELFPAY ==
[2021-05-31 10:06] VITALS: BP 120/59; PULSE 54
--- NOTE | 2021-05-31 11:55 | MHC.PT.EP ---
[facility] [place] Office [place] Office [place] Office [address] Trevor Cruz [address] [phone] F: [phone] F: [phone] F: [phone] F: [phone] Physical Therapy Plan of Care Date of Evaluation: Date of Surgery: N/A Diagnosis: unsteadiness on feet Assessment: pt falls out of age-appropriate norms for his dynamic balance testing. pt presents to physical therapy with pain, decreased range of motion, decreased strength, impaired functional mobility, impaired postural awareness, and gait deviations. pt is a good candidate for skilled PT due to age, potential remediation of impairments, typical disease/condition progression and prognosis, comorbidities, and motivation. pt would benefit from tailored strengthening and stretching exercise program, functional training, gait training, postural re-training, neuromuscular re-education, modalities as needed for pain, equipment safety demonstration. Frequency and Duration: The patient will be seen 2x/wk for 6 wks Short Term Goals: pt will be I w/ HEP to promote self-management of condition. pt will improve B quad strength by 1 MMT grade to perform sit<>stand transfer mod I to rollator w/ no UE usage to promote improved functional independence w/ transfers at home. pt will improve B ankle DF to 0 degrees to improve toe clearance on even ground w/ LRAD. Sourcing Manager Goals: pt will improve 5xSTS by 8 seconds to reduce fall risk w/ transfers from different surfaces within home and community environments. pt will improve TUG by 6 seconds to reduce fall risk w/ ambulation using LRAD to promote functional independence w/ ambulation within his condo. pt will report a statistically significant improvement in his ABC scale to promote improved balance within the home and community. Treatment Plan: Modalities to reduce pain, spasms and effusion. Manual therapy to restore motion and function. Therapeutic exercise to improve strength and flexibility. Neuromuscular re-education for posture and balance. Therapeutic activities to return to functional activities of daily living. Electronically signed by: Ro Hilton PT, DPT Please sign and return to therapist. Thank you for your referral.
--- NOTE | 2021-09-08 15:32 | MHC.PT.DC ---
[facility] [place] Office [place] Office [place] Office [address] Trevor Cruz [address] [phone] F: [phone] F: [phone] F: [phone] F: [phone] Physical Therapy Discharge Report Diagnosis: unsteadiness on feet Date of Surgery: N/A Date of Evaluation: 05/31/21 Date of Discharge: 09/08/21 Treatments to Date: 12 Cancellations to Date: 3 No Shows to Date: Discharge Status: Improved Function Independent with HEP Discharge Summary: The patient reported overall he feels he has made improvements in physical therapy. He denied any recent falls or near falls. Overall, this therapist has noticed that he has improved regarding his lower extremity strength, endurance, and ability to tolerate prolonged periods of physical activity. He does; however, continue to require cueing for proper sequencing for sit to stand transfers and bed mobility to maximize safety and independence which has been reinforced since his first visit. He also occasionally requires verbal and tactile cueing for exercises he has been performing for several weeks now. He was given a home exercise program handout detailing all exercises and which level resistance to use. This was reviewed with his to maximize carryover. He is discharged from this physical therapy plan of care to his home exercise program. Electronically signed by: Ro Hilton PT, DPT Please sign and return to therapist. Thank you for your referral.
== END 2021-09-08 15:32 | disposition home or self-care (01) ==
LOC: HO.PT 10:00
PROVIDERS: PCP Internal Medicine; Visit Provider Physician Assistant
DX: R26.81 Unsteadiness on feet (principal)
CPT/HCPCS: 97110; 97112; 97116; 97162; 97530

== ENCOUNTER → 2021-11-30 12:19 | Outpatient (BNVA) | payer MEDICARE, SELFPAY | PROVIDERS: PCP Internal Medicine; Referring Provider Internal Medicine; Visit Provider Internal Medicine Cardiovascular Disease | DX: Z45.018 Encounter for adjustment and management of other part of cardiac pacemaker (principal); I25.10 Atherosclerotic heart disease of native coronary artery without angina pectoris | CPT/HCPCS: 93280; 99212 ==

== ENCOUNTER 2022-02-01 13:02 | Emergency (ER) | payer MEDICARE, SELFPAY ==
--- NOTE | 2022-02-01 | ECG_ITS ---
Test Reason : fall Blood Pressure : / mmHG Vent. Rate : 059 BPM Atrial Rate : 059 BPM P-R Int : 312 ms QRS Dur : 092 ms QT Int : 412 ms P-R-T Axes : 000 -09 125 degrees QTc Int : 407 ms Atrial-paced rhythm with prolonged AV conduction with occasional Premature ventricular complexes Incomplete right bundle branch block Inferior infarct (cited on or before 01-FEB-2022) T wave abnormality, consider lateral ischemia Abnormal ECG When compared with ECG of 08-APR-2021 11:43, Premature ventricular complexes are now Present T wave inversion now evident in Lateral leads Referred By: Generic ED Physician Electronically Signed By:KERMIT LEROY
--- NOTE | ~2022-02-01 | CT_ITS ---
EXAMINATION: CT HEAD WITHOUT CONTRAST CT CERVICAL SPINE WITHOUT CONTRAST CLINICAL INFORMATION: Reason for Exam fall COMPARISON: 03/16/2021. TECHNIQUE: Imaging was performed from the skull base to vertex without intravenous administration of contrast. In addition, helical noncontrast CT imaging was acquired through the cervical spine and source images were reviewed along with axial reconstructions and sagittal and coronal MPRs. This CT examination was performed using dose optimization techniques as appropriate, variously including the following: *Automated exposure control. *Adjustment of mA and/or kV according to patient size (this includes techniques or standardized protocols for targeted exams where dose is matched to indication/reason for exam; i.e. extremities or head). *Use of iterative reconstruction technique. Total exam dose-length product 1186 mGy-cm FINDINGS: HEAD: No intracranial mass, hemorrhage, or midline shift is visualized. The ventricles and sulci are within normal limits. No extra-axial collections are identified. The paranasal sinuses and mastoid air cells are well aerated, except for mucoperiosteal thickening involving the right maxillary sinus and right frontal sinus, similar to prior study dated 03/16/2021. CERVICAL SPINE: Marked diffuse osteopenia, moderate to severe degenerative spondylosis at C5-C6 and C6-C7 and significant facet joint arthritic changes throughout the entire cervical spine appear stable. Deformity of the odontoid process and superimposed degenerative changes at the atlantoaxial joint appear unchanged. There is no evidence of acute cervical spine fracture. Vertebral bodies remain normal in height, and alignment is anatomic. No prevertebral or paravertebral soft tissue abnormality is identified. Limited assessment of the lung apices remain abnormal with evidence of bilobed spiculated mass at right lung apex,, possibly increased minimally since 03/16/2021. Given its shape, accurate comparison is difficult. However, dedicated CT scan of the chest is recommended for further full detail evaluation. CT/CT cervical spine wo con IMPRESSION: 1. No acute intracranial pathology. 2. No CT evidence of acute cervical spine fracture or traumatic subluxation. 3. Abnormal right lung apex with possible enlargement of spiculated mass. Given the shape of the abnormality, accurate comparison with prior studies difficult. A dedicated nonemergent CT scan of the chest however is recommended for further full detail evaluation.
--- NOTE | ~2022-02-01 | XR_ITS ---
EXAMINATION: XR CHEST CLINICAL INFORMATION: Fall. Shortness of breath and weakness COMPARISON: Chest radiograph 03/16/2021 TECHNIQUE: Frontal view of the chest was obtained. FINDINGS: Heart size is normal. No infiltrates, effusions or lung masses are seen. Previously seen prominent pulmonary tavon appear smaller when compared to prior. Status post median sternotomy with mediastinal clips. A dual-lead right chest wall pacemaker is present. 2 abandoned leads are seen extending from the left chest to the atria and ventricle. Surgical clips are noted along the left chest wall. Degenerative changes are present in the left shoulder. No visualized fractures are seen on the bony thorax. XR/XR chest 1V IMPRESSION: No acute intrathoracic disease.
[2022-02-01 13:09] VITALS: BP 120/70; PULSE 58; O2SAT 95
[2022-02-01 13:10] VITALS: BP 99/39; PULSE 55; RESP 17; TEMP 36.9; O2SAT 94; BMI 27.4
--- NOTE | 2022-02-01 13:45 | ED.FALL ---
HPI - Fall General Chief Complaint: Head Injury Stated Complaint: fall with headstrike Time Seen by Provider: 02/01/22 13:32 Source: patient and family Mode of arrival: EMS Limitations: no limitations History of Present Illness HPI Narrative: 81 yo male with hx of CAD, PPM, HTN, bipolar disorder, unsteady gait, DM, HLD here with c/o tripping today and hitting head on table and falling into radiator he denies any preceding symptoms no CP/SOB no dizziness and no GIB symptoms. He feels normal at this time. He notes he is unsteady and has a history of falls. He is not on blood thinners. He was not on the floor for long. MD complaint: fall Onset (ago): minute(s) (just prior to arrival ) Fall from: standing Fall witnessed: yes, by family Place fall occurred: home Loss of consciousness: none Prolonged down time: no Symptoms prior to fall: none Context: tripped/slipped Location of injury: head Severity: mild Quality: aching Associated symptoms (after fall): denies Related Data Home Medications Medication Instructions Recorded Confirmed bimatoprost 0.01 % eye drops 1 drp ophthalmic (eye) BEDTIME 05/28/20 11/30/21 bupropion HCl 150 mg 24 hr tablet, 150 mg PO DAILY 05/25/21 11/30/21 extended release celecoxib 200 mg capsule 200 mg PO DAILY 05/25/21 11/30/21 melatonin 5 mg tablet 5 mg PO BEDTIME PRN insomnia 05/25/21 11/30/21 Previous Rx's Medication Instructions Recorded alendronate 70 mg tablet 70 mg PO SA 30 days #5 tabs 04/16/21 alfuzosin 10 mg tablet,extended 1 tab PO BEDTIME 90 days #90 tabs 04/16/21 release 24 hr atorvastatin 80 mg tablet 80 mg PO DAILY 90 days #90 tabs 04/16/21 finasteride 5 mg tablet 5 mg PO DAILY 30 days #30 tabs 04/16/21 lamotrigine 25 mg tablet 25 mg PO BID #60 tabs 04/16/21 lorazepam 0.5 mg tablet 0.5 mg PO BID PRN anxiety 30 days 04/16/21 #60 tabs metformin 500 mg tablet,extended 500 mg PO QAM 30 days #30 tabs 04/16/21 release 24 hr olanzapine 10 mg tablet 10 mg PO BEDTIME 30 days #30 tabs 04/16/21 pantoprazole 40 mg tablet,delayed 40 mg PO DAILY 30 days #30 tabs 04/16/21 release trazodone 50 mg tablet 50 mg PO BEDTIME PRN Insomnia 30 04/16/21 days metoprolol tartrate 25 mg tablet 12.5 mg PO BID #30 tabs 10/25/21 Allergies Allergy/AdvReac Type Severity Reaction Status Date / Time metoprolol AdvReac Unknown bradycardia Verified 04/27/21 10:37 timolol AdvReac Unknown low bp Verified 04/27/21 10:37 tamsulosin [From Flomax] AdvReac Diarrhea Verified 04/27/21 10:37 beta blockers AdvReac Hypotension Uncoded 04/27/21 10:37 Review of Systems Review of Systems: Constitutional : No Fever, No Chills, No Fatigue ENT/Mouth : No sore throat, No Rhinorrhea Eyes: No Eye Pain, No Swelling, No Redness Cardiovascular : No Chest Pain, No SOB, No Dyspnea on Exertion Respiratory : No Cough, No Sputum Gastrointestinal : No Nausea, No Vomiting, No Diarrhea, No abdominal Pain Genitourinary : No Dysuria, No Urinary Frequency, No Hematuria, Musculoskeletal : No joint pain, No Myalgias, No Joint Swelling Skin : No Skin Lesions, No rash Neuro : No Weakness, No Numbness, No Dizziness, positive Headache Psych : No Anxiety/Panic, No Depression Heme/Lymph: No Bruising, No Bleeding,No Lymphadenopathy Endocrine : No Polyuria, No Polydipsia All other systems reviewed and are negative PMFSH Past Medical History Attestation statement: The following information was validated with the patient. Medical History CAD (coronary artery disease) Cardiac pacemaker in situ Diabetes History of left breast cancer HTN (hypertension) Hyperlipidemia Sick sinus syndrome Surgical History History of permanent cardiac pacemaker placement Hx of CABG Hx of cataract surgery Hx of mastectomy Family History Family History Father CVD (cardiovascular disease) Mother CVD (cardiovascular disease) Brother CVD (cardiovascular disease) Sister Diabetes Son Diabetes Social History Social History Household Members: Spouse Housing: House Do you presently have visiting nurse or other home services: No Alcohol intake: never Patient Tobacco Use Status: Former Tobacco user Tobacco use type: Cigarette Advance Directives: Yes Advance Directives on File: Yes Advance Directives Date on File: 03/17/21 service: No Sexual orientation: Straight/Heterosexual Physical Exam Vital Signs: Vital Signs: Last Vital Signs Temp 97.9 F 02/01/22 14:09 Pulse 55 02/01/22 14:09 Resp 17 02/01/22 14:09 BP 100/57 L 02/01/22 14:09 Pulse Ox 93 02/01/22 14:09 O2 Del Method 02/01/22 14:09 BMI result Body Mass Index 27.4 Appearance: Alert. Oriented X3. No acute distress. Eyes: Pupils equal, round and reactive to light. ENT: Pharynx normal. superficial linear abrasion to posterior scalp Neck: Normal inspection. Neck supple. CVS: Normal heart rate and rhythm. Pulses normal. Chest wall: non-tender Respiratory: No respiratory distress. Breath sounds normal. Abdomen: Soft and non-tender. Skin: Skin warm and dry. Normal skin color. Normal skin turgor. Extremities: No lower extremity edema. no pain with ROM or axial loading Neuro: Oriented X 3. No motor deficit. No sensory deficit. Course Course Course Narrative: signed out to Dr. Kelly - pending CT scans and repeat trop has new t wave inversions but asymptomatic and EKG 1 year ago MDM - Fall MDM Narrative Medical decision making narrative: 81 yo male with hx of CAD, PPM, HTN, bipolar disorder, unsteady gait, DM, HLD reports mechanical fall without any preceding symptoms initial BP low but up on recheck - he has no complaints and is adamant he tripped. At this time will obtain basic labs, CT head/cspine for trauma given age. CXR post fall, EKG and will monitor and repeat fluids. Dispo per results and findings. Lab Data Result diagrams: 02/01/22 13:58 02/01/22 13:58 Labs: Lab Results 02/01/22 02/01/22 02/01/22 Range/Units 13:58 13:58 13:58 WBC 8.3 (4.8-10.8) X10*3/uL RBC 4.66 (4.60-5.80) X10*6/uL Hgb 14.0 (14.0-18.0) g/dl Hct 42.2 (42.0-52.0) % MCV 90.6 (80.0-98.0) fL MCH 30.0 (27.0-33.0) pg MCHC 33.2 (31.0-36.0) g/dl RDW 13.6 (11.0-16.0) % Plt Count 227 (160-400) X10*3/uL MPV 9.3 L (9.4-12.4) fL Immature Gran % (Auto) 0.4 (0.0-0.4) % Neut % (Auto) 83.7 H (45-73) % Lymph % (Auto) 9.2 L (20-40) % [place] % (Auto) 4.5 (2-11) % Eos % (Auto) 1.6 (0-4) % Baso % (Auto) 0.6 (0-2) % Lymph # (Auto) 0.8 L (1.2-4.9) X10*3/uL [place] # (Auto) 0.4 (0.1-1.2) X10*3/uL Eos # (Auto) 0.1 (0.0-0.4) X10*3/uL Baso # (Auto) 0.1 (0.0-0.2) X10*3/uL Abs Immat Gran (auto) 0.03 (0.00-0.03) X10*3/uL Absolute Neuts (auto) 6.9 (2.0-8.3) x10*3/uL Absolute Nucleated RBC 0.000 (0.0-0.012) X10*3/uL Nucleated RBC % (auto) 0.0 (0.0-0.2) /100WBC PT (10.0-13.1) SEC INR (0.9-1.1) Sodium 141 (135-145) mmol/L Potassium 4.7 (3.3-5.1) mmol/L Chloride 107 (96-108) mmol/L Carbon Dioxide 23 (22-29) mmol/L Anion Gap 16 (12-20) BUN 21 H (9-16) mg/dL Creatinine 1.18 (0.5-1.4) mg/dL Estim Creat Clear Calc 47.9 Estimated GFR 60 Random Glucose 290 H (60-115) mg/dL Calcium 9.8 (8.4-10.2) mg/dL Magnesium 1.7 (1.6-2.6) mg/dL Total Bilirubin 0.7 (0.0-1.0) mg/dL Direct Bilirubin 0.3 (0.0-0.5) mg/dL AST 21 (5-37) U/L ALT 23 (0-40) U/L Alkaline Phosphatase 93 (39-117) U/L Troponin I High Sens (<3.5-35.0) ng/L Total Protein 6.2 L (6.5-8.0) g/dL Albumin 3.8 (3.5-5.0) g/dL COVID-19 (ANDRE) Negative (Negative) COVID-19 Clin Com See Note 02/01/22 02/01/22 Range/Units 13:58 13:58 WBC (4.8-10.8) X10*3/uL RBC (4.60-5.80) X10*6/uL Hgb (14.0-18.0) g/dl Hct (42.0-52.0) % MCV (80.0-98.0) fL MCH (27.0-33.0) pg MCHC (31.0-36.0) g/dl RDW (11.0-16.0) % Plt Count (160-400) X10*3/uL MPV (9.4-12.4) fL Immature Gran % (Auto) (0.0-0.4) % Neut % (Auto) (45-73) % Lymph % (Auto) (20-40) % [place]land % (Auto) (2-11) % Eos % (Auto) (0-4) % Baso % (Auto) (0-2) % Lymph # (Auto) (1.2-4.9) X10*3/uL [place] # (Auto) (0.1-1.2) X10*3/uL Eos # (Auto) (0.0-0.4) X10*3/uL Baso # (Auto) (0.0-0.2) X10*3/uL Abs Immat Gran (auto) (0.00-0.03) X10*3/uL Absolute Neuts (auto) (2.0-8.3) x10*3/uL Absolute Nucleated RBC (0.0-0.012) X10*3/uL Nucleated RBC % (auto) (0.0-0.2) /100WBC PT 11.9 (10.0-13.1) SEC INR 1.0 (0.9-1.1) Sodium (135-145) mmol/L Potassium (3.3-5.1) mmol/L Chloride (96-108) mmol/L Carbon Dioxide (22-29) mmol/L Anion Gap (12-20) BUN (9-16) mg/dL Creatinine (0.5-1.4) mg/dL Estim Creat Clear Calc Estimated GFR Random Glucose (60-115) mg/dL Calcium (8.4-10.2) mg/dL Magnesium (1.6-2.6) mg/dL Total Bilirubin (0.0-1.0) mg/dL Direct Bilirubin (0.0-0.5) mg/dL AST (5-37) U/L ALT (0-40) U/L Alkaline Phosphatase (39-117) U/L Troponin I High Sens 4.6 (<3.5-35.0) ng/L Total Protein (6.5-8.0) g/dL Albumin (3.5-5.0) g/dL COVID-19 (ANDRE) (Negative) COVID-19 Clin Com ECG Data Attestation: I personally reviewed and interpreted this ECG as follows: ECG interpretation date: 02/01/22 ECG interpretation time: 14:51 Interpretation: Rate: 59 Rhythm: atiral paced prolonged AV conduction Hank[place]: left Normal QRS complex. ST T wave : inverted t waves I, aVL, V5-V6 qTC: normal prior studies: t wave inversions new as of 2020 The study has been interpreted contemporaneously by me. . Discharge Plan Discharge Clinical Impression: T wave inversion in EKG Closed head injury Qualifiers: Encounter type: initial encounter Qualified Code(s): S09.90XA - Unspecified injury of head, initial encounter Patient Disposition: Still a Patient Prescriptions: No Action metoprolol tartrate 25 mg tablet 12.5 mg PO BID Qty: 30 3RF trazodone 50 mg Tablet 50 mg PO BEDTIME PRN (Reason: Insomnia) 30 Days 0RF olanzapine 10 mg Tablet 10 mg PO BEDTIME 30 Days Qty: 30 0RF atorvastatin 80 mg tablet 80 mg PO DAILY 90 Days Qty: 90 3RF alendronate 70 mg tablet 70 mg PO SA 30 Days Qty: 5 0RF lamotrigine 25 mg tablet 25 mg PO BID Qty: 60 0RF lorazepam 0.5 mg tablet 0.5 mg PO BID PRN (Reason: anxiety) 30 Days Qty: 60 0RF pantoprazole 40 mg tablet,delayed release (DR/EC) 40 mg PO DAILY 30 Days Qty: 30 0RF metformin 500 mg tablet extended release 24 hr 500 mg PO QAM 30 Days Qty: 30 0RF finasteride 5 mg tablet 5 mg PO DAILY 30 Days Qty: 30 0RF alfuzosin 10 mg tablet extended release 24 hr 1 tab PO BEDTIME 90 Days Qty: 90 0RF bimatoprost 0.01 % drops 1 drp ophthalmic (eye) BEDTIME bupropion HCl 150 mg tablet extended release 24 hr 150 mg PO DAILY celecoxib 200 mg capsule 200 mg PO DAILY melatonin 5 mg tablet 5 mg PO BEDTIME PRN (Reason: insomnia)
[2022-02-01] MEDS: 0.9 % Sodium Chloride 500 ML IV (13:59)
[2022-02-01 14:08] LABS: MANUAL DIFF FLAG NO
[2022-02-01 14:09] VITALS: BP 100/57; PULSE 55; RESP 17; TEMP 36.6; O2SAT 93
[2022-02-01 14:10] LABS: Basophils Absolute Auto 0.1 X10*3/uL (0.0-0.2); Basophils Percent Auto 0.6 % (0-2); Eosinophils Absolute Auto 0.1 X10*3/uL (0.0-0.4); Eosinophils Percent Auto 1.6 % (0-4); Hematocrit 42.2 % (42.0-52.0); Imm Gran Abs Auto 0.03 X10*3/uL (0.00-0.03); Imm Gran Pct Auto 0.4 % (0.0-0.4); Lymphocytes Absolute Auto 0.8 X10*3/uL (1.2-4.9); Lymphocytes Percent Auto 9.2 % (20-40); Mean Corpuscular HGB Conc 33.2 g/dl (31.0-36.0); Mean Corpuscular Volume 90.6 fL (80.0-98.0); Mean Platelet Volume 9.3 fL (9.4-12.4); Monocytes Absolute Auto 0.4 X10*3/uL (0.1-1.2); Monocytes Percent Auto 4.5 % (2-11); Neutrophils Absolute Auto 6.9 x10*3/uL (2.0-8.3); Neutrophils Percent Auto 83.7 % (45-73); Platelet Count 227 X10*3/uL (160-400); Red Blood Count 4.66 X10*6/uL (4.60-5.80); Red Cell Distribution Width 13.6 % (11.0-16.0); White Blood Count 8.3 X10*3/uL (4.8-10.8)
[2022-02-01 14:14] LABS: Prothrombin Time 11.9 SEC (10.0-13.1)
[2022-02-01 14:30] LABS: Troponin-I High Sensitivity 4.6 ng/L (<3.5-35.0)
[2022-02-01 14:36] LABS: Alanine Aminotransferase 23 U/L (0-40); Albumin Level 3.8 g/dL (3.5-5.0); Alkaline Phosphatase 93 U/L (39-117); Anion Gap 16 (12-20); Aspartate Amino Transferase 21 U/L (5-37); Bilirubin Direct 0.3 mg/dL (0.0-0.5); Bilirubin Total 0.7 mg/dL (0.0-1.0); Blood Urea Nitrogen 21 mg/dL (9-16); Calcium 9.8 mg/dL (8.4-10.2); Carbon Dioxide 23 mmol/L (22-29); Chloride 107 mmol/L (96-108); Creatinine Clr Calc Pharmacy 47.9; Estimated Glomerular Filt Rate 60; Glucose Random 290 mg/dL (60-115); Magnesium 1.7 mg/dL (1.6-2.6); Potassium 4.7 mmol/L (3.3-5.1); Sodium 141 mmol/L (135-145); Total Protein 6.2 g/dL (6.5-8.0)
[2022-02-01 14:47] LABS: COVID-19 Test Negative (Negative); IDNOW Serial# 16C4AD1C
[2022-02-01 15:58] VITALS: BP 117/54; PULSE 55; RESP 12; TEMP 36.6; O2SAT 95
[2022-02-01 16:36] LABS: Troponin-I High Sensitivity 4.8 ng/L (<3.5-35.0)
== END 2022-02-01 19:36 | disposition home or self-care (01) ==
PROVIDERS: Emergency Medicine; Emergency Provider Emergency Medicine Emergency Medical Services; PCP Internal Medicine
DX: S09.90XA Unspecified injury of head, initial encounter (principal); R51.9 Headache, unspecified; M54.2 Cervicalgia; R94.31 Abnormal electrocardiogram [ECG] [EKG]; I25.10 Atherosclerotic heart disease of native coronary artery without angina pectoris; W01.10XA Fall on same level from slipping, tripping and stumbling with subsequent striking against unspecified object, initial encounter; Y93.9 Activity, unspecified; Y92.9 Unspecified place or not applicable; Y99.9 Unspecified external cause status; Z20.822 Contact with and (suspected) exposure to COVID-19; Z79.899 Other long term (current) drug therapy
CPT/HCPCS: 36415; 70450; 71045; 72125; 80048; 80076; 83735; 84484; 85025; 85610; 87635; 93005; 99284; 99285

== ENCOUNTER → 2022-04-15 09:40 | Outpatient (REF) | payer MEDICARE, SELFPAY ==
--- NOTE | ~2022-04-15 | NM_ITS ---
Myocardial perfusion study Indication: Chest pain with prior to evaluate for myocardial ischemia Technique: The patient was brought in for a Lexiscan perfusion study on 04/15/2022. Patient performed low-level exercise and was injected 0.4 mg of Lexiscan intravenously. Within a minute of injection, 25 mCi of sestamibi was given intravenously. Images were obtained using the SPECT gamma camera interlaced with the gating device. Images were obtained in supine position. Resting perfusion study was performed on 04/19/2022. Patient was administered 25 mCi of sestamibi intravenously at rest. Images were then obtained in supine position. Images obtained with and without CT attenuation. Total DLP 80 mGy-cm. Images were processed with the software and compared side to side in short axis, horizontal long axis and vertical long axis views. Findings: The stress perfusion study showed non attenuated images show mildly reduced uptake in the basal inferior and inferolateral wall of the LV myocardium. Remainder of the LV myocardium is normally perfused. Attenuation corrected images show mildly reduced uptake in the basal inferior wall of the LV myocardium. The gated study shows normal LV systolic function with calculated LVEF of 74%. LV cavity is normal in size. The gated study shows normal systolic wall thickening and contraction of segments. Resting study shows no change in perfusion pattern compared to stress perfusion study. Gating at rest reveals normal systolic wall motion with ejection fraction at 64%. The findings are consistent with no clear reversible defect suggestive of ischemia. Possible small area of fixed basal inferior wall defect which could suggest nontransmural CA. NM/NM merlyn perf SPECT rest & str Impression: 1. Myocardial perfusion imaging study shows no reversible ischemia 2. Gated LVEF is 64% 3. Transient ischemic dilatation not present EKG is nondiagnostic for ischemia
--- NOTE | 2022-04-15 09:42 | CA_ITS ---
Acquisition Time: 2022-04-15 09:53:35 Total Exercise Time: 00:02:00 Test Indications: R/O CAD Medications: Protocol: LEXISCAN Max HR: 069 BPM 48% of Pred: 141 BPM Max BP: 122/056 mmHG Max Work Load: 1.0 METS Pharmacological stress test with Lexiscan injection, while sitting and kicking his legs, without anginal symptoms, with isolated PVC, with normotensive response to injection, with nondiagnostic EKG for ischemia. Nuclear images pending. Test reviewed with Dr Perez. Referred By: David Perez Overread By: TOM MOLINA
== END ==
LOC: HO.CARD 09:40
PROVIDERS: PCP Internal Medicine; Visit Provider Internal Medicine Cardiovascular Disease
DX: R07.89 Other chest pain (principal); I25.10 Atherosclerotic heart disease of native coronary artery without angina pectoris; R26.81 Unsteadiness on feet
CPT/HCPCS: 78452; 93017; A9500; J0280; J2785

== ENCOUNTER 2022-04-26 10:00 | Outpatient (RCR) | payer MEDICARE, SELFPAY ==
--- NOTE | 2022-06-08 08:37 | MHC.PT.DC ---
[facility] [employer] [facility] [place] [facility] [address] Trevor Cruz [address] [phone] F: [phone] F: [phone] F: [phone] F: [phone] Physical Therapy Discharge Report Diagnosis: INCREASED FALL RISK Date of Surgery: Date of Evaluation: 03/10/22 Date of Discharge: 04/29/22 Treatments to Date: 10 Cancellations to Date: 0 No Shows to Date: 0 Discharge Status: Achieved Goals Improved Function Discharge Summary: Mr. Hnederson has progressed well in PT. He is independent with current HEP but requires encouragement to perform independently. His understands the program and is able to assist him at home. Electronically signed by: Arlyn Ward PT, DPT Please sign and return to therapist. Thank you for your referral.
== END 2022-06-08 08:37 | disposition home or self-care (01) ==
LOC: HO.PT 10:00
PROVIDERS: Visit Provider Physician Assistant
DX: R26.81 Unsteadiness on feet (principal)
CPT/HCPCS: 97110; 97161; 97530

== ENCOUNTER 2022-04-28 11:19 | Outpatient (REF) | payer MEDICARE, SELFPAY ==
--- NOTE | ~2022-04-28 | XR_ITS ---
EXAMINATION: XR RIBS, LEFT, PA CHEST CLINICAL INFORMATION: Chest pain. COMPARISON: Chest radiograph dated 02/01/2022. TECHNIQUE: 3 views of the left ribs were obtained and PA chest. Skin markers overlie the inferior left chest. FINDINGS: An ovoid nodule seen overlying the left upper lobe measuring 1.3 cm. A coarsely calcified granuloma in the right apex is stable. Coarsely calcified hilar and mediastinal lymph nodes are again noted without interval change. The lungs are otherwise clear. The heart and mediastinal structures are unremarkable. Osseous structures are unremarkable. Ribs are intact. No fractures are identified. XR/XR ribs LT min 3V w CXR1V IMPRESSION: 1. Left upper lobe nodule was not well-seen previously. This could represent an evolving granuloma however could be further evaluated with a chest CT scan for additional characterization. 2. Right upper lobe granuloma and calcified hilar and mediastinal lymph nodes without significant change consistent with old granulomatous disease.
== END 2022-04-28 11:20 | disposition home or self-care (01) ==
LOC: HO.XRAY 11:19
PROVIDERS: PCP Internal Medicine; Visit Provider Internal Medicine Cardiovascular Disease
DX: R07.81 Pleurodynia (principal)
CPT/HCPCS: 71101

== ENCOUNTER → 2022-06-09 12:44 | Outpatient (BNVA) | payer MEDICARE, SELFPAY | PROVIDERS: PCP Internal Medicine; Visit Provider Internal Medicine Cardiovascular Disease | DX: I25.10 Atherosclerotic heart disease of native coronary artery without angina pectoris (principal); I10 Essential (primary) hypertension; E11.9 Type 2 diabetes mellitus without complications; E78.5 Hyperlipidemia, unspecified; Z95.0 Presence of cardiac pacemaker; Z95.1 Presence of aortocoronary bypass graft | CPT/HCPCS: 93280; 99212 ==

== ENCOUNTER 2022-07-05 17:45 | Emergency (ER) | payer MEDICARE, SELFPAY ==
--- NOTE | ~2022-07-05 | CT_ITS ---
EXAMINATION: CT HEAD WITHOUT CONTRAST CT CERVICAL SPINE WITHOUT CONTRAST CLINICAL INFORMATION: Trauma. COMPARISON: CT head and cervical spine from 02/01/2022. TECHNIQUE: Contiguous axial imaging was performed from the skull base to vertex without intravenous administration of contrast. Contiguous axial imaging was performed from the upper chest through the skull base without intravenous administration of contrast. Coronal and sagittal reformats were obtained at the acquisition workstation. This CT examination was performed using dose optimization techniques as appropriate, variously including the following: *Automated exposure control. *Adjustment of mA and/or kV according to patient size (this includes techniques or standardized protocols for targeted exams where dose is matched to indication/reason for exam; i.e. extremities or head). *Use of iterative reconstruction technique. DLP: 1243 mGy-cm FINDINGS: Head: There is no evidence of acute intracranial hemorrhage or edematous territorial infarction. Conti-white matter differentiation is preserved. Scattered and partially confluent hypoattenuation in the periventricular and deep white matter are consistent with moderate microangiopathy. Proportional prominence of the ventricles and sulcal spaces without evidence of obstructive hydrocephalus. No abnormal mass effect or midline shift. No extra-axial fluid collections. Soft tissue laceration along the right vertex. No associated osseous abnormalities. No radiopaque foreign bodies. Complete opacification of the right frontal sinus. Moderate mucosal thickening of the right maxillary sinus and ethmoid air cells. Associated hyperostotic changes consistent with sequela of chronic sinusitis. Moderate rightward nasal septal deviation with spurring. The mastoid air cells and middle ear cavities are clear. Moderate to advanced degenerative arthropathy of the temporomandibular joints. Bilateral lens extractions. Cervical Spine: The atlantooccipital articulation remains well aligned. Advanced degenerative arthropathy of the atlantodental articulation. Associated retrolisthesis of C1 on C2. Moderate degenerative anterolistheses of C3 on C4 and C4 on C5. Otherwise, straightening of the normal cervical lordosis. No evidence of acute fracture or subluxation. The vertebral body heights are maintained. Advanced degenerative disc disease at C5-C6 and C6-C7 with moderate to advanced disc-osteophyte complex formation. There appears to be at least mild to moderate spinal canal stenosis at C5-C6 and C6-C7. Mild to moderate degenerative disc disease at all additional cervical levels. Facet and uncovertebral joint arthropathy leads osseous encroachment on the neural foramina from C2-C7. There is no prevertebral soft tissue swelling. Left pectoral pacemaker. The thyroid gland and remaining cervical soft tissues are normal in appearance. Chronic coarsely calcified lymphadenopathy within the mediastinum. Additional coarsely calcified granulomas within the visualized upper lungs. CT/CT cervical spine wo IV con IMPRESSION: 1. No evidence of acute intracranial hemorrhage or edematous territorial infarction. Moderate underlying microangiopathy and generalized cerebral volume loss. 2. No evidence of acute fracture or traumatic subluxation of the cervical spine. Moderate to advanced multilevel degenerative spondyloarthropathy of the cervical spine. Most notably on this limited exam without intrathecal contrast, there appears to be at least mild to moderate spinal canal stenosis at C5-C6 and C6-C7. 3. Right-sided scalp laceration without associated osseous abnormalities.
--- NOTE | ~2022-07-05 | XR_ITS ---
EXAMINATION: XR KNEE, RIGHT CLINICAL INFORMATION: Pain COMPARISON: None TECHNIQUE: Two views of the right knee. FINDINGS: There is a horizontal minimally displaced fracture through the patella. Trace joint effusion may be present. Degenerative changes are present with mild narrowing of all 3 compartments. Chondrocalcinosis is present with calcification in the lateral meniscus. An osteophyte is seen arising from the mid lateral femoral condyle. XR/XR knee RT 2V IMPRESSION: Horizontal minimally displaced transverse fracture through the patella.
--- NOTE | 2022-07-05 17:53 | ED_ITS ---
HPI - Fall General Chief Complaint: Fall Stated Complaint: FALL,-LOC,+HS,+THIN,REFUSED COLLAR Time Seen by Provider: 07/05/22 17:48 Source: patient Mode of arrival: EMS Limitations: no limitations History of Present Illness HPI Narrative: Patient with history of hypertension diabetes hyperlipidemia unsteady gait with frequent falls has fallen 3 times in this week not on any anticoagulants today was go to the bathroom stumbled and hit his head to the door frame came with laceration to the top of the head no loss of consciousness also skin tear on the bilateral hands no seizures no chest pain or palpitation patient just felt weak and fell down Related Data Home Medications Medication Instructions Recorded Confirmed bimatoprost 0.01 % eye drops 1 drp ophthalmic (eye) BEDTIME 05/28/20 07/05/22 bupropion HCl 150 mg 24 hr tablet, 150 mg PO DAILY 05/25/21 07/05/22 extended release cyanocobalamin (vitamin B-12) 1,000 mcg PO DAILY 06/09/22 07/05/22 1,000 mcg tablet (Vitamin B-12) folic acid 1 mg tablet 1 mg PO DAILY 06/09/22 07/05/22 melatonin 10 mg tablet 1 tab PO BEDTIME PRN insomnia 07/05/22 07/05/22 metformin 500 mg tablet,extended 500 mg PO DAILY 07/05/22 07/05/22 release 24 hr Previous Rx's Medication Instructions Recorded alendronate 70 mg tablet 70 mg PO SA 30 days #5 tabs 04/16/21 alfuzosin 10 mg tablet,extended 1 tab PO BEDTIME 90 days #90 tabs 04/16/21 release 24 hr atorvastatin 80 mg tablet 80 mg PO DAILY 90 days #90 tabs 04/16/21 finasteride 5 mg tablet 5 mg PO DAILY 30 days #30 tabs 04/16/21 lamotrigine 25 mg tablet 25 mg PO BID #60 tabs 04/16/21 olanzapine 10 mg tablet 10 mg PO BEDTIME 30 days #30 tabs 04/16/21 pantoprazole 40 mg tablet,delayed 40 mg PO DAILY 30 days #30 tabs 04/16/21 release metoprolol tartrate 25 mg tablet 12.5 mg PO BID #90 tabs 06/01/22 Allergies Allergy/AdvReac Type Severity Reaction Status Date / Time Penicillins Allergy Unknown Unknown Verified 07/05/22 17:53 metoprolol AdvReac Intermediate bradycardia Verified 07/05/22 17:53 timolol AdvReac Intermediate low bp Verified 07/05/22 17:53 tamsulosin [From Flomax] AdvReac Mild Diarrhea Verified 07/05/22 17:53 beta blockers AdvReac Hypotension Uncoded 04/27/21 10:37 Review of Systems Review of Systems: Yes all other systems are reviewed and are negative [facility] Past Medical History Medical History CAD (coronary artery disease) Cardiac pacemaker in situ Diabetes History of left breast cancer HTN (hypertension) Hyperlipidemia Sick sinus syndrome Surgical History History of permanent cardiac pacemaker placement Hx of CABG Hx of cataract surgery Hx of mastectomy Family History Family History Father CVD (cardiovascular disease) Mother CVD (cardiovascular disease) Brother CVD (cardiovascular disease) Sister Diabetes Son Diabetes Social History Social History Household Members: Spouse Housing: House Do you presently have visiting nurse or other home services: No Alcohol intake: never Patient Tobacco Use Status: Former Tobacco user Tobacco use type: Cigarette Smoked in Last 30 Days: No Use of substances other than those prescribed or required for medical reasons: No Advance Directives: Yes Advance Directives on File: Yes Advance Directives Date on File: 03/17/21 service: No Sexual orientation: Straight/Heterosexual Physical Exam Vital Signs: Vital Signs: Last Vital Signs Temp 98.5 F 07/06/22 02:23 Pulse 55 07/06/22 02:23 Resp 22 H 07/06/22 02:23 BP 191/81 H 07/06/22 02:23 Pulse Ox 95 07/06/22 02:23 O2 Del Method 07/06/22 02:23 BMI result Body Mass Index 29.0 Appearance: Alert. Oriented X3. No acute distress. Eyes: PERRLA, No Nystagmus HEENT: Pharynx normal. Oral Mucosa moist laceration right temporal area Neck: Normal inspection. Neck supple. CVS: Normal heart rate and rhythm. Pulses normal. Respiratory: No respiratory distress. Equal air entry bilateral, no wheezing/rales/rhonchi Abdomen: Soft and nontender. Bowel sounds are present, no mass palpable, no CVA tenderness Skin: Skin warm and dry. Normal skin color. Normal skin turgor. skin tear on left hand right elbow right forearm Extremities: No lower extremity edema. No calf tenderness low muscle mass Neuro: Oriented X 3. No motor deficit. No sensory deficit.No cerebellar signs , cranial nerves II-XII intact HEENT: Head images: 1. 4 cm long laceration Extrem: Elbow/forearm/wrist images: 1. Skin tear 2. Small skin tear 3. Skin tear Procedures Laceration Laceration 1: Site: scalp Side (If applicable): right Size (cm): 4 Description: linear Depth: simple, single layer Skin layer closed with: other (diego #4) Medical Decision Making Medical Decision Making [facility] Narrative: Patient frail with multiple mechanical falls with leg weakness plan to place him in rehab case discussed with case management Lab Data [facility] Lab Attestation statement: I reviewed the patient's lab results. 07/05/22 18:57 07/05/22 18:57 Labs: Lab Results 07/05/22 07/05/22 07/05/22 Range/Units 18:57 18:57 18:57 WBC 6.8 (4.8-10.8) X10*3/uL RBC 4.20 L (4.60-5.80) X10*6/uL Hgb 12.6 L (14.0-18.0) g/dl Hct 37.8 L (42.0-52.0) % MCV 90.0 (80.0-98.0) fL MCH 30.0 (27.0-33.0) pg MCHC 33.3 (31.0-36.0) g/dl RDW 13.6 (11.0-16.0) % Plt Count 195 (160-400) X10*3/uL MPV 9.1 L (9.4-12.4) fL Immature Gran % (Auto) 0.4 (0.0-0.4) % Neut % (Auto) 76.5 H (45-73) % Lymph % (Auto) 14.1 L (20-40) % Polk % (Auto) 6.5 (2-11) % Eos % (Auto) 1.9 (0-4) % Baso % (Auto) 0.6 (0-2) % Lymph # (Auto) 1.0 L (1.2-4.9) X10*3/uL Polk # (Auto) 0.4 (0.1-1.2) X10*3/uL Eos # (Auto) 0.1 (0.0-0.4) X10*3/uL Baso # (Auto) 0.0 (0.0-0.2) X10*3/uL Abs Immat Gran (auto) 0.03 (0.00-0.03) X10*3/uL Absolute Neuts (auto) 5.2 (2.0-8.3) x10*3/uL Absolute Nucleated RBC 0.000 (0.0-0.012) X10*3/uL Nucleated RBC % (auto) 0.0 (0.0-0.2) /100WBC PT 11.6 (10.0-13.1) SEC INR 1.0 (0.9-1.1) Sodium 141 (135-145) mmol/L Potassium 4.1 (3.3-5.1) mmol/L Chloride 109 H (96-108) mmol/L Carbon Dioxide 26 (22-29) mmol/L Anion Gap 10 L (12-20) BUN 17 H (9-16) mg/dL Creatinine 0.93 (0.5-1.4) mg/dL Estim Creat Clear Calc 62.5 Estimated GFR > 60 Random Glucose 176 H (60-115) mg/dL Calcium 9.3 (8.4-10.2) mg/dL Total Bilirubin 0.6 (0.0-1.0) mg/dL AST 26 (5-37) U/L ALT 31 (0-40) U/L Alkaline Phosphatase 106 (39-117) U/L Troponin I High Sens (<3.5-35.0) ng/L Total Protein 5.7 L (6.5-8.0) g/dL Albumin 3.5 (3.5-5.0) g/dL COVID-19 (ANDRE) (Negative) COVID-19 Clin Com 07/05/22 07/05/22 Range/Units 18:57 21:53 WBC (4.8-10.8) X10*3/uL RBC (4.60-5.80) X10*6/uL Hgb (14.0-18.0) g/dl Hct (42.0-52.0) % MCV (80.0-98.0) fL MCH (27.0-33.0) pg MCHC (31.0-36.0) g/dl RDW (11.0-16.0) % Plt Count (160-400) X10*3/uL MPV (9.4-12.4) fL Immature Gran % (Auto) (0.0-0.4) % Neut % (Auto) (45-73) % Lymph % (Auto) (20-40) % Polk % (Auto) (2-11) % Eos % (Auto) (0-4) % Baso % (Auto) (0-2) % Lymph # (Auto) (1.2-4.9) X10*3/uL Polk # (Auto) (0.1-1.2) X10*3/uL Eos # (Auto) (0.0-0.4) X10*3/uL Baso # (Auto) (0.0-0.2) X10*3/uL Abs Immat Gran (auto) (0.00-0.03) X10*3/uL Absolute Neuts (auto) (2.0-8.3) x10*3/uL Absolute Nucleated RBC (0.0-0.012) X10*3/uL Nucleated RBC % (auto) (0.0-0.2) /100WBC PT (10.0-13.1) SEC INR (0.9-1.1) Sodium (135-145) mmol/L Potassium (3.3-5.1) mmol/L Chloride (96-108) mmol/L Carbon Dioxide (22-29) mmol/L Anion Gap (12-20) BUN (9-16) mg/dL Creatinine (0.5-1.4) mg/dL Estim Creat Clear Calc Estimated GFR Random Glucose (60-115) mg/dL Calcium (8.4-10.2) mg/dL Total Bilirubin (0.0-1.0) mg/dL AST (5-37) U/L ALT (0-40) U/L Alkaline Phosphatase (39-117) U/L Troponin I High Sens 5.0 (<3.5-35.0) ng/L Total Protein (6.5-8.0) g/dL Albumin (3.5-5.0) g/dL COVID-19 (ANDRE) Negative (Negative) COVID-19 Clin Com See Note Discharge Plan Discharge Clinical Impression: Unsteady gait, Frequent falls, Skin tear of upper extremity, Laceration of scalp Patient Disposition: Still a Patient Prescriptions: No Action metoprolol tartrate 25 mg tablet 12.5 mg PO BID Qty: 90 3RF melatonin 10 mg tablet 1 tab PO BEDTIME PRN (Reason: insomnia) metformin 500 mg tablet extended release 24 hr 500 mg PO DAILY olanzapine 10 mg Tablet 10 mg PO BEDTIME 30 Days Qty: 30 0RF atorvastatin 80 mg tablet 80 mg PO DAILY 90 Days Qty: 90 3RF alendronate 70 mg tablet 70 mg PO SA 30 Days Qty: 5 0RF lamotrigine 25 mg tablet 25 mg PO BID Qty: 60 0RF pantoprazole 40 mg tablet,delayed release (DR/EC) 40 mg PO DAILY 30 Days Qty: 30 0RF finasteride 5 mg tablet 5 mg PO DAILY 30 Days Qty: 30 0RF alfuzosin 10 mg tablet extended release 24 hr 1 tab PO BEDTIME 90 Days Qty: 90 0RF bimatoprost 0.01 % drops 1 drp ophthalmic (eye) BEDTIME bupropion HCl 150 mg tablet extended release 24 hr 150 mg PO DAILY folic acid 1 mg tablet 1 mg PO DAILY cyanocobalamin (vitamin B-12) [Vitamin B-12] 1,000 mcg tablet 1,000 mcg PO DAILY
--- NOTE | 2022-07-05 17:53 | ECG_ITS ---
Test Reason : FALL Blood Pressure : / mmHG Vent. Rate : 055 BPM Atrial Rate : 055 BPM P-R Int : 300 ms QRS Dur : 094 ms QT Int : 442 ms P-R-T Axes : 000 -01 081 degrees QTc Int : 422 ms Atrial-paced rhythm with prolonged AV conduction Inferior infarct (cited on or before 01-FEB-2022) Abnormal ECG When compared with ECG of 01-FEB-2022 14:37, Premature ventricular complexes are no longer Present Nonspecific T wave abnormality has replaced inverted T waves in Lateral leads Referred By: Adolph Ibarra Electronically Signed By:GABRIELA VALDES MD
[2022-07-05 17:54] VITALS: BP 170/100; BP 171/74; PULSE 55; PULSE 62; RESP 18; TEMP 526.1; TEMP 978.9; O2SAT 96; BMI 29.0
[2022-07-05 19:06] LABS: MANUAL DIFF FLAG NO
[2022-07-05 19:08] LABS: Basophils Percent Auto 0.6 % (0-2); Eosinophils Absolute Auto 0.1 X10*3/uL (0.0-0.4); Eosinophils Percent Auto 1.9 % (0-4); Hematocrit 37.8 % (42.0-52.0); Hemoglobin 12.6 g/dl (14.0-18.0); Imm Gran Abs Auto 0.03 X10*3/uL (0.00-0.03); Imm Gran Pct Auto 0.4 % (0.0-0.4); Lymphocytes Percent Auto 14.1 % (20-40); Mean Corpuscular HGB Conc 33.3 g/dl (31.0-36.0); Mean Platelet Volume 9.1 fL (9.4-12.4); Monocytes Absolute Auto 0.4 X10*3/uL (0.1-1.2); Monocytes Percent Auto 6.5 % (2-11); Neutrophils Absolute Auto 5.2 x10*3/uL (2.0-8.3); Neutrophils Percent Auto 76.5 % (45-73); Platelet Count 195 X10*3/uL (160-400); Red Cell Distribution Width 13.6 % (11.0-16.0); White Blood Count 6.8 X10*3/uL (4.8-10.8)
[2022-07-05 19:14] LABS: Prothrombin Time 11.6 SEC (10.0-13.1)
[2022-07-05 19:27] LABS: Alanine Aminotransferase 31 U/L (0-40); Albumin Level 3.5 g/dL (3.5-5.0); Alkaline Phosphatase 106 U/L (39-117); Anion Gap 10 (12-20); Aspartate Amino Transferase 26 U/L (5-37); Bilirubin Total 0.6 mg/dL (0.0-1.0); Blood Urea Nitrogen 17 mg/dL (9-16); Calcium 9.3 mg/dL (8.4-10.2); Carbon Dioxide 26 mmol/L (22-29); Chloride 109 mmol/L (96-108); Creatinine Clr Calc Pharmacy 62.5; Estimated Glomerular Filt Rate > 60; Glucose Random 176 mg/dL (60-115); Potassium 4.1 mmol/L (3.3-5.1); Sodium 141 mmol/L (135-145); Total Protein 5.7 g/dL (6.5-8.0)
[2022-07-05 19:36] VITALS: BP 198/92; PULSE 55; RESP 14; TEMP 36.7; O2SAT 94
--- NOTE | 2022-07-05 19:37 | PC.NURSE ---
RN assumed care for patient. Pt requested to use urinal. Pt denies pain at this time. Dr. Polk at pt side.
--- NOTE | 2022-07-05 20:43 | MHC.CM.ED ---
CM consult received from Dr. Ibarra requesting CM to speak with patient and family regarding need for PT and STR. Pt had 3 falls this week. Pt is A&Ox4. Lives with . Uses a walker. Pt admits to sometimes forgetting to use it all the time in the apartment. [facility] alert. No other services. Pf[employer] x4. HCP on file. HCP#1/ [facility]ady Henderson ([phone]). Family requesting referrals to both Acute and STR. Pt is independent at home. Explained that Acute rehab will determine if patient is a candidate or not. Requesting [facility] for STR, otherwise local facilities with at least 3 stars. Contact card given. Pt daughter, Emily, is a medical management trainer for Dr. Perez at [employer]. Dr. Ibarra informed about patient decision to remain in ED for PT assessment and rehab. CM will follow for discharge planning.
--- NOTE | 2022-07-05 21:59 | PHA.MEDREC ---
Pharmacy Consult ? Medication Reconciliation Pharmacy has completed the medication reconciliation.
[2022-07-05 22:16] LABS: COVID-19 Test Negative (Negative); IDNOW Serial# 6674DD1D
[2022-07-05 23:19] VITALS: BP 179/83; PULSE 55; RESP 16; TEMP 36.8; O2SAT 95
[2022-07-06] VITALS (9 sets, daily range): BP systolic 136–191; BP diastolic 69–81; PULSE 55–56; RESP 16–22; TEMP 36.8–37.2; O2SAT 94–96
--- NOTE | 2022-07-06 00:43 | PC.NURSE ---
Pt FRANCES x4 found standing at the side of the bed using the urinal. Pt assisted back in bed water sponger stickers replaced. Pt denies pain at this time. Pt in a hospital bed.
--- NOTE | 2022-07-06 02:25 | PC.NURSE ---
RN and tech noted pt wearing brief and incontyenant of urine. Pt was asdsisted to use urinal recieve perineal care and repositioned. Pt denies pain at this time.
--- NOTE | 2022-07-06 06:16 | PC.NURSE ---
Pt slept for most of the night. Rn at pt bedside he reports he used the urinal pt denies pain at this time.
--- NOTE | 2022-07-06 07:45 | MHC.EDTECH ---
pt repositioned in bed. Pad changed. Bed in low, locked position. Call conti in reach, able to make needs known.
[2022-07-06] MEDS: Atorvastatin Calcium 80 MG TABLET PO (07:49)
[2022-07-06] MEDS: lamoTRIgine 25 MG TABLET PO (07:49)
[2022-07-06] MEDS: Omeprazole 20 MG CAPSULE.DR PO (07:49)
[2022-07-06] MEDS: Metoprolol Tartrate 12.5 MG HALFTAB PO (07:49)
[2022-07-06] MEDS: buPROPion HCl XL 150 MG TAB.ER.24H PO (07:50)
[2022-07-06] MEDS: Cyanocobalamin (Vitamin B-12) 1,000 MCG TABLET 1000 MCG PO (07:50)
[2022-07-06] MEDS: metFORMIN HCl ER 500 MG TAB.ER.24H PO (07:50)
[2022-07-06] MEDS: Folic Acid 1 MG TABLET PO (07:50)
--- NOTE | 2022-07-06 07:56 | PC.NURSE ---
pt a/o x 3 no sob/ras noted speaks in full sentences. lungs - diminished all lobes . heart sounds - regular. abd soft and non-tender. bs + x 4 quads. no edema noted. 4 diego to r side (frontal) of head intact. clean dry dressings noted to r forearm (2) and (1) to l forearm. pt aware of plan of care.
[2022-07-06 07:58] LABS: Glucose, Whole Blood 166 mg/dL (60-115)
--- NOTE | 2022-07-06 08:03 | MHC.EDTECH ---
pts head lac cleaned
--- NOTE | 2022-07-06 08:28 | PC.NURSE ---
physical therapy at bedside, pt aware of plan of care.
[2022-07-06] MEDS: Finasteride 5 MG TABLET PO (08:36)
--- NOTE | 2022-07-06 09:48 | PC.NURSE ---
bedside x-ray of r knee is being done.
--- NOTE | 2022-07-06 13:06 | MHC.CM.ED ---
Patient remains in ER. Physical therapy eval completed. Short term rehab is being recommended. [facility] not able to offer a bed. [facility] is able to offer a bed. Patient and , [facility] accept bed. Patient can leave at 3pm. Paul RODRIGUEZ booked. Med nec in chart. Patient, Marion Conteh RN and Sandie DE LA VEGA aware. Continue to monitor for d/c needs.
--- NOTE | 2022-07-06 13:24 | MHC.EDTECH ---
knee immobilizer fit as well as crutches. Full bed change done, bed in low, locked position. Call conti in reach, able to make needs known.
--- NOTE | 2022-07-06 15:06 | PC.NURSE ---
RN TO RN REPORT GIVEN TO SOCORRO AT [facility]. PT/ AWARE OF PLAN OF CARE FOR TRANSFER TO FACILITY.
== END 2022-07-06 18:06 | disposition skilled nursing facility (03) ==
PROVIDERS: Emergency Provider Internal Medicine; PCP Internal Medicine
DX: S01.01XA Laceration without foreign body of scalp, initial encounter (principal); S51.812A Laceration without foreign body of left forearm, initial encounter; S51.811A Laceration without foreign body of right forearm, initial encounter; R26.81 Unsteadiness on feet; R51.9 Headache, unspecified; M54.2 Cervicalgia; I25.10 Atherosclerotic heart disease of native coronary artery without angina pectoris; W01.190A Fall on same level from slipping, tripping and stumbling with subsequent striking against furniture, initial encounter; Y93.9 Activity, unspecified; Y92.002 Bathroom of unspecified non-institutional (private) residence as the place of occurrence of the external cause; Y99.9 Unspecified external cause status; Z20.828 Contact with and (suspected) exposure to other viral communicable diseases; Z20.822 Contact with and (suspected) exposure to COVID-19; Z79.899 Other long term (current) drug therapy; Z87.891 Personal history of nicotine dependence
CPT/HCPCS: 12002; 36415; 70450; 72125; 73560; 80053; 82947; 84484; 85025; 85610; 87635; 93005; 97162; 99285

== ENCOUNTER 2022-07-14 16:28 | Outpatient (REF) | payer OTHER, MEDICARE, SELFPAY ==
--- NOTE | ~2022-07-14 | XR_ITS ---
EXAMINATION: XR KNEE, RIGHT CLINICAL INFORMATION: Pain. COMPARISON: Right knee 07/06/2022 TECHNIQUE: 2 views of the right knee. FINDINGS: Since the last exam there is mild widening in the transverse patellar fracture. Mild prepatellar superficial soft tissue swelling is unchanged. No abnormal joint effusion seen. No additional fracture seen. XR/XR knee RT 2V IMPRESSION: Transverse mid patellar fracture is further displaced since 07/06/2022.
== END 2022-07-14 16:29 | disposition home or self-care (01) ==
LOC: HO.HOSX 16:28
PROVIDERS: Visit Provider Physician Assistant
DX: S82.001A Unspecified fracture of right patella, initial encounter for closed fracture (principal); X58.XXXA Exposure to other specified factors, initial encounter; Y93.9 Activity, unspecified; Y92.9 Unspecified place or not applicable; Y99.9 Unspecified external cause status
CPT/HCPCS: 73560; 99212

== ENCOUNTER 2022-08-04 11:02 | Outpatient (REF) | payer MEDICARE, SELFPAY ==
--- NOTE | ~2022-08-04 | XR_ITS ---
EXAMINATION: XR KNEE, RIGHT CLINICAL INFORMATION: Pain. COMPARISON: None TECHNIQUE: AP and lateral views of the right knee. FINDINGS: There is bony demineralization. The lateral and medial joint space compartments are well-maintained. There is narrowing of the patellofemoral compartment. There is mild chondrocalcinosis. A transverse fracture is noted of the patella. This shows stable mild displacement. No new callus formation is seen. There is diffuse atherosclerotic calcifications. Surgical clips are seen within the medial thigh. XR/XR knee RT 2V IMPRESSION: 1. There is stable alignment of a transverse patellar fracture. No new callus formation is noted. 2. There is chondrocalcinosis, which can be associated with CPPD.
== END 2022-08-04 11:03 | disposition home or self-care (01) ==
LOC: HO.HOSX 11:02
PROVIDERS: Visit Provider Physician Assistant
DX: S82.001A Unspecified fracture of right patella, initial encounter for closed fracture (principal)
CPT/HCPCS: 73560; 99212

== ENCOUNTER 2022-09-06 14:25 | Outpatient (REF) | payer MEDICARE, SELFPAY ==
--- NOTE | ~2022-09-06 | XR_ITS ---
EXAMINATION: XR KNEE, RIGHT CLINICAL INFORMATION: Right knee pain, follow-up fracture COMPARISON: 08/04/2022 TECHNIQUE: AP and lateral views of the right knee. FINDINGS: Transverse fracture is again seen through the patella. Fracture line demonstrates some increased sclerosis along its margins. No significant displacement. Remaining osseous structures are intact. There is decreased soft tissue edema and joint effusion compared to the prior exam. Joint spaces are maintained. Extensive atherosclerotic calcification seen in the arterial vessels XR/XR knee RT 2V IMPRESSION: Transverse fracture of the patella with mildly increased sclerosis along the fracture margins.
== END 2022-09-06 14:26 | disposition home or self-care (01) ==
LOC: HO.HOSX 14:25
PROVIDERS: Visit Provider Physician Assistant
DX: S82.001A Unspecified fracture of right patella, initial encounter for closed fracture (principal)
CPT/HCPCS: 73560; 99212

== ENCOUNTER 2022-10-13 10:30 | Outpatient (REF) | payer MEDICARE, SELFPAY ==
--- NOTE | ~2022-10-13 | XR_ITS ---
EXAMINATION: XR KNEE, RIGHT CLINICAL INFORMATION: Right knee pain COMPARISON: 09/06/2022 TECHNIQUE: 2 views of the right knee. FINDINGS: Redemonstration of transverse oriented fracture of the patella. Interval decrease in suprapatellar effusion with edema seen in Hoffa's fat pad. Dense arterial calcifications and posterior knee soft tissue surgical clips. Calcification of the bilateral tibiofemoral compartments likely reflects chondrocalcinosis. XR/XR knee RT 2V IMPRESSION: Redemonstration of transverse oriented fracture of the patella. Interval decrease in suprapatellar effusion with edema seen in Hoffa's fat pad.
== END 2022-10-13 10:31 | disposition home or self-care (01) ==
LOC: HO.HOSX 10:30
PROVIDERS: Visit Provider Physician Assistant
DX: S82.001A Unspecified fracture of right patella, initial encounter for closed fracture (principal)
CPT/HCPCS: 73560; 99212

== ENCOUNTER 2022-11-22 07:35 | Outpatient (REF) | payer MEDICARE, SELFPAY ==
--- NOTE | ~2022-11-22 | XR_ITS ---
EXAMINATION: XR KNEE, RIGHT CLINICAL INFORMATION: Pain in unspecified knee COMPARISON: Same-day bilateral AP standing views of the knees TECHNIQUE: Lateral and sunrise views of the right knee of the right knee. FINDINGS: The bones are intact. No fracture or joint effusion. Alignment is anatomic. There is bilateral moderate narrowing of the medial lateral joint compartments with associated chondrocalcinosis. There is extensive arterial vascular calcification indicative of marked atherosclerosis. Surgical clips are seen along the soft tissues of the right medial lower thigh and medial right calf. There is also right lateral patellar tilt and marked narrowing of the patellofemoral joint compartment. XR/XR knee RT 2V IMPRESSION: Bilateral moderate narrowing of the medial lateral joint compartments with associated chondrocalcinosis. Tricompartment osteoarthritis of the right knee.
--- NOTE | ~2022-11-22 | XR_ITS ---
EXAMINATION: XR KNEE AP STANDING CLINICAL INFORMATION: Pain in unspecified knee COMPARISON: Same-day 2 views right knee TECHNIQUE: AP bilateral standing view of the knees was obtained. FINDINGS: The bones are intact. No fracture or joint effusion. Alignment is anatomic. There is bilateral moderate narrowing of the medial lateral joint compartments with associated chondrocalcinosis. There is extensive arterial vascular calcification indicative of marked atherosclerosis. Surgical clips are seen along the soft tissues of the right medial lower thigh and medial right calf. There is also right lateral patellar tilt and marked narrowing of the patellofemoral joint compartment. XR/XR knee standing BI IMPRESSION: Bilateral moderate narrowing of the medial lateral joint compartments with associated chondrocalcinosis. Tricompartment osteoarthritis of the right knee.
== END 2022-11-22 07:36 | disposition home or self-care (01) ==
LOC: HO.HOSX 07:35
PROVIDERS: Visit Provider Physician Assistant
DX: S82.001D Unspecified fracture of right patella, subsequent encounter for closed fracture with routine healing (principal); X58.XXXD Exposure to other specified factors, subsequent encounter
CPT/HCPCS: 73560; 73565; 99212

== ENCOUNTER → 2022-12-06 12:39 | Outpatient (BNVA) | payer MEDICARE, SELFPAY | PROVIDERS: PCP Internal Medicine Infectious Disease; Referring Provider Internal Medicine Infectious Disease; Visit Provider Internal Medicine Cardiovascular Disease | DX: Z45.018 Encounter for adjustment and management of other part of cardiac pacemaker (principal); I25.10 Atherosclerotic heart disease of native coronary artery without angina pectoris | CPT/HCPCS: 93280; 99212 ==

== ENCOUNTER 2023-01-17 11:00 | Outpatient (RCR) | payer MEDICARE, SELFPAY ==
--- NOTE | 2022-11-10 14:51 | MHC.PT.EP ---
[facility] [place] [facility] [place] [facility] [place] [facility] [address] Trevor Cruz [address] [phone] F: [phone] F: [phone] F: [phone] F: [phone] Physical Therapy Plan of Care Date of Evaluation: Date of Surgery: N/A Diagnosis: Assessment: pt is a 82 y/o male presenting to physical therapy w/ referring diagnosis of S82.001A unspecified fracture of right patella, initial encounter for closed fracture. Impairments include pain, decreased range of motion, decreased strength, impaired functional mobility, impaired postural awareness, and altered ambulation mechanics. pt is a fair candidate for skilled PT due to age, potential remediation of impairments, typical disease/condition progression and prognosis, comorbidities, and motivation. pt would benefit from skilled PT intervention to provide a tailored strengthening and stretching exercise program, functional training, gait training, postural re-training, neuromuscular re-education, modalities as needed for pain, equipment safety demonstration. Frequency and Duration: The patient will be seen 2x/wk for 4 wks Short Term Goals: pt will be I w/ HEP to promote self-management of condition. pt will improve R knee extension strength by 1 MMT grade to promote ease in sit<>stand transfers. [employer] Goals: pt will report a statistically significant improvement in self-reported outcome measure, LEFI, to promote return to PLOF. pt will perform x5 STS transfers w/ minimal UE assist. Treatment Plan: Modalities to reduce pain, spasms and effusion. Manual therapy to restore motion and function. Therapeutic exercise to improve strength and flexibility. Neuromuscular re-education for posture and balance. Therapeutic activities to return to functional activities of daily living. Electronically signed by: Ro Hilton PT, DPT Please sign and return to therapist. Thank you for your referral.
--- NOTE | 2023-01-17 11:49 | MHC.PT.DC ---
[facility] [place] [facility] [place] [facility] [place] [facility] [address] Trevor Cruz [address] [phone] F: [phone] F: [phone] F: [phone] F: [phone] Physical Therapy Discharge Report Diagnosis: fracture of R patella (RC) Date of Surgery: N/A Date of Evaluation: 11/10/22 Date of Discharge: 01/17/23 Treatments to Date: 13 Cancellations to Date: 0 No Shows to Date: 0 Discharge Status: Improved Function Recommend MD Follow-up Discharge Summary: The patient overall has plateaued with physical therapy at this point and time. His cognitive status does impact his ability to progress. He continues to require the same verbal cueing for safety awareness and gait mechanics. Unsure if there is carryover and compliance with home exercise program. At this time I recommend he use his walker for all primary ambulation going forward to mitigate fall risk and prevent other fractures in the future. Overall, I would consider supervision level for his functional mobility given I still consider him a fall risk. He is discharged from this physical therapy plan of care at this time. Electronically signed by: Ro Mckinney PT, DPT Please sign and return to therapist. Thank you for your referral.
== END 2023-01-17 11:50 | disposition home or self-care (01) ==
LOC: HO.PT 11:00
PROVIDERS: PCP Internal Medicine Infectious Disease; Visit Provider Physician Assistant
DX: S82.201D Unspecified fracture of shaft of right tibia, subsequent encounter for closed fracture with routine healing (principal)
CPT/HCPCS: 97110; 97112; 97162

== ENCOUNTER 2023-05-30 10:51 | Outpatient (AMB) | payer MEDICARE, SELFPAY ==
[2023-05-30 10:53] VITALS: BP 108/68; PULSE 55; BMI 27.9
--- NOTE | 2023-05-30 10:53 | MHC.OFFVIS ---
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: No [employer] Gunfire Spotter: Naval Gunfire Spotter Present Accompanied by: Spouse Allergies Penicillins Allergy (Unknown, Verified 11/22/22 15:45) Unknown metoprolol Adverse Reaction (Intermediate, Verified 11/22/22 15:45) bradycardia timolol Adverse Reaction (Intermediate, Verified 11/22/22 15:45) low bp tamsulosin [From Flomax] Adverse Reaction (Mild, Verified 11/22/22 15:45) Diarrhea beta blockers Adverse Reaction (Uncoded 09/06/22 14:38) Hypotension Medication List - Last Reconciled 05/30/23 by David Perez MD alendronate 70 mg PO SA 30 days alfuzosin ER 1 tab PO BEDTIME 90 days atorvastatin 80 mg PO DAILY 90 days bimatoprost 0.01% 1 drp ophthalmic (eye) BEDTIME bupropion HCl 150 mg PO DAILY cyanocobalamin (vitamin B-12) (Vitamin B-12) 1,000 mcg PO DAILY finasteride 5 mg PO DAILY 30 days folic acid 1 mg PO DAILY lamotrigine 25 mg PO BID melatonin 1 tab PO BEDTIME PRN metformin ER 500 mg PO DAILY metoprolol tartrate 12.5 mg (1/2 x 25 mg) PO BID olanzapine 10 mg PO BEDTIME 30 days pantoprazole 40 mg PO DAILY 30 days HPI HPI Comments History of Present Illness Details Bill comes for follow-up, accompanied by his . He has slight increase in frequency of fall. Patient denies any symptoms of lightheadedness or syncope. Denies any symptom prolonged palpitation irregular heartbeat. No anginal symptoms. No regular recording of blood pressures but there been no reported episodes of low blood pressure. [facility] Medical History History of left breast cancer CAD (coronary artery disease) Cardiac pacemaker in situ Sick sinus syndrome HTN (hypertension) Diabetes Hyperlipidemia Surgical History Hx of cataract surgery Hx of mastectomy History of permanent cardiac pacemaker placement Hx of CABG Family History Father CVD (cardiovascular disease) Mother CVD (cardiovascular disease) Brother CVD (cardiovascular disease) Sister Diabetes Son Diabetes Social History Household Members: Spouse Housing: House Do you presently have visiting nurse or other home services: No Alcohol intake: never Patient Tobacco Use Status: Former Tobacco user Tobacco use type: Cigarette Advance Directives Date on File: 03/17/21 service: No Sexual orientation: Straight/Heterosexual Review of Systems Const Denies chills, Denies fatigue, Denies fever(s), Denies frequent falls, Denies weakness, Denies weight gain and Denies weight loss ENT Denies dizziness Card Denies chest pain, Denies leg edema, Denies lightheadedness, Denies palpitations, Denies dyspnea, Denies dyspnea on exertion, Denies orthopnea and Denies other (loss of consciousness) Resp Denies cough, Denies dyspnea and Denies dyspnea on exertion GI Denies hematochezia and Denies change in stool character Musc Denies abnormal gait, Denies muscle weakness, Denies numbness, Denies radiating pain into limb and Denies tingling Neuro Denies abnormal gait, Denies dizziness, Denies frequent falls, Denies numbness, Denies tingling and Denies weakness Endo Denies fatigue and Denies palpitations Physical Exam Vital Signs: Last Vital Signs Pulse 55 05/30/23 10:53 BP 108/68 05/30/23 10:53 BMI result Body Mass Index 27.9 Const General: cooperative, comfortable, no acute distress, alert, awake and well groomed Nutritional Appearance: other (frail) Orientation/consciousness: patient oriented x3 Limitations: ambulation with walker Neck Neck: Yes trachea midline, Yes supple and Yes no JVD Resp Effort & Inspection: normal respiratory effort Auscultation: clear to auscultation bilaterally Cardio Jugular venous distension: no JVD Palpation: normal PMI Rate: regular rate Rhythm: regular rhythm Heart sounds: S1 normal heart sound present and S2 normal heart sound present GI Auscultation: normal bowel sounds Skin General skin exam: no rashes or lesions noted Neuro General: patient oriented x3 and no focal motor deficits Extrem General: Yes no clubbing, cyanosis or edema Psych Appearance: grossly normal Office Procedures Cardiac Device Check Cardiac Device Check Details: Dual-chamber [facility] pacemaker in place. Programmed in DDDR at 60 beats per minute. Atrial pacing 92% of time. No arrhythmias detected. Atrial pacing thresholds excellent. Ventricular pacing thresholds excellent and reprogrammed. Atrial ventricular sensing is adequate. Pacing lead impedance is stable. Battery life is excellent 40920-[id number] Cardiac Device Check, pacemaker dual lead Procedure code (CPT) selection complete Assessment & Plan Assessment & Plan (1) Cardiac pacemaker in situ: Comment: [facility] dual-chamber pacemaker, moved from left chest to right chest AprilNovember 2016 Code(s): Z95.0 - Presence of cardiac pacemaker Plan: Cardiac pacemaker in-situ for sick sinus syndrome. Pacemaker is working well. Will follow remotely. No interventions required from this perspective. Will follow up in the clinic in 6 months time. (2) CAD (coronary artery disease): Code(s): I25.10 - Atherosclerotic heart disease of [place] coronary artery without angina pectoris Plan: CAD with prior coronary artery bypass grafting with no symptoms angina which could be related to reduced exercise capacity. However at current does will continue to treated medically. Continue low-dose aspirin therapy. Blood pressure is optimized on low-dose metoprolol therapy. Continue the same. Continue high-intensity statin therapy with target goal LDL closer to 60 mg/dL. Management of diabetes 3 our office. Will follow up in the clinic in 6 months time, sooner p.r.n.. Thank you for allowing me to partake in his care Coding Level of Care Code Est Pt Level 4 (31848) Diagnoses Cardiac pacemaker in situ Z95.0 CAD (coronary artery disease) I25.10 CPT Codes Cardiac Device Check - Cardiac Device 2: [id number] Cardiac Device Check, pacemaker dual lead ([id number])
== END 2023-05-30 11:20 | disposition home or self-care (01) ==
PROVIDERS: PCP Internal Medicine Infectious Disease; Visit Provider Internal Medicine Cardiovascular Disease
DX: I25.10 Atherosclerotic heart disease of native coronary artery without angina pectoris (principal); I49.5 Sick sinus syndrome; Z95.0 Presence of cardiac pacemaker
CPT/HCPCS: 93280; 99213

== ENCOUNTER → 2023-05-30 10:51 | Outpatient (BNVA) | payer MEDICARE, SELFPAY | PROVIDERS: PCP Internal Medicine Infectious Disease; Visit Provider Internal Medicine Cardiovascular Disease | DX: Z45.018 Encounter for adjustment and management of other part of cardiac pacemaker (principal); I25.10 Atherosclerotic heart disease of native coronary artery without angina pectoris | CPT/HCPCS: 93280; 99212 ==

== ENCOUNTER → 2023-06-05 05:23 | Outpatient (BNV) | payer MEDICARE, SELFPAY | PROVIDERS: Emergency Provider Emergency Medicine; PCP Internal Medicine Infectious Disease; Visit Provider Internal Medicine Cardiovascular Disease | DX: R94.31 Abnormal electrocardiogram [ECG] [EKG] (principal); R07.9 Chest pain, unspecified | CPT/HCPCS: 93010 ==

== ENCOUNTER 2023-06-05 05:24 | Emergency (ER) | payer MEDICARE, SELFPAY ==
--- NOTE | ~2023-06-05 | XR_ITS ---
EXAMINATION: XR CHEST CLINICAL INFORMATION: Chest pain COMPARISON: PA chest with RIBS 04/28/2022 TECHNIQUE: 2 views of the chest were obtained. FINDINGS: Monitor leads project over the chest. The patient is status post median sternotomy with mediastinal clips. 2-lead pacemaker pack projects over the right hemithorax. Two abandoned pacemaker wires project over the left upper chest. There is mild opacity projected over the right lung base which may represent atelectasis and/or pneumonia versus sclerosis of a healed right rib fracture. Heart size is normal. There is prominence of the tavon, again noted. No right pleural effusion. Slight blunting of the left costophrenic angle could represent pleural thickening or minimal pleural fluid. Surgical clips project over the left axilla. Degenerative changes are seen in both shoulders. XR/XR chest 2V IMPRESSION: 1. Right lower lobe atelectasis and/or pneumonia. 2. Slight blunting of the left costophrenic angle could represent pleural thickening or minimal pleural fluid.
--- NOTE | 2023-06-05 05:23 | ECG_ITS ---
Test Reason : CP Blood Pressure : / mmHG Vent. Rate : 055 BPM Atrial Rate : 055 BPM P-R Int : 296 ms QRS Dur : 090 ms QT Int : 426 ms P-R-T Axes : -19 -05 104 degrees QTc Int : 407 ms Atrial-paced rhythm with prolonged AV conduction Inferior infarct , age undetermined Abnormal ECG No previous ECGs available Referred By: Generic ED Physician Electronically Signed By:GABRIELA VALDES MD
[2023-06-05 05:33] VITALS: BP 120/80; PULSE 55; O2SAT 96
[2023-06-05 05:35] VITALS: BP 125/66; PULSE 55; RESP 16; O2SAT 93; BMI 27.9
[2023-06-05 05:51] LABS: MANUAL DIFF FLAG NO
[2023-06-05 05:52] LABS: Basophils Absolute Auto 0.1 X10*3/uL (0.0-0.2); Basophils Percent Auto 0.6 % (0-2); Eosinophils Absolute Auto 0.2 X10*3/uL (0.0-0.4); Eosinophils Percent Auto 1.8 % (0-4); Hematocrit 37.8 % (42.0-52.0); Hemoglobin 12.7 g/dl (14.0-18.0); Imm Gran Abs Auto 0.03 X10*3/uL (0.00-0.03); Imm Gran Pct Auto 0.3 % (0.0-0.4); Lymphocytes Absolute Auto 1.4 X10*3/uL (1.2-4.9); Lymphocytes Percent Auto 12.9 % (20-40); Mean Corpuscular HGB Conc 33.6 g/dl (31.0-36.0); Mean Corpuscular Hemoglobin 30.1 pg (27.0-33.0); Mean Corpuscular Volume 89.6 fL (80.0-98.0); Monocytes Absolute Auto 0.8 X10*3/uL (0.1-1.2); Monocytes Percent Auto 7.4 % (2-11); Neutrophils Absolute Auto 8.3 x10*3/uL (2.0-8.3); Platelet Count 289 X10*3/uL (160-400); Red Blood Count 4.22 X10*6/uL (4.60-5.80); Red Cell Distribution Width 13.4 % (11.0-16.0); White Blood Count 10.7 X10*3/uL (4.8-10.8)
[2023-06-05 06:06] LABS: Anion Gap 13 (12-20); Blood Urea Nitrogen 13 mg/dL (9-16); Calcium 9.6 mg/dL (8.4-10.2); Carbon Dioxide 23 mmol/L (22-29); Chloride 108 mmol/L (96-108); Creatinine Clr Calc Pharmacy 60.9; Estimated Glomerular Filt Rate > 60; Glucose Random 173 mg/dL (60-115); Sodium 140 mmol/L (135-145)
[2023-06-05 06:12] LABS: Troponin-I High Sensitivity 5.3 ng/L (<3.5-35.0)
--- NOTE | 2023-06-05 06:30 | PC.NURSE ---
pt biba from home reporting onset of chest pain at 0430 today. pt reports chest pain was center chest, pt took 4 baby asprin prior to ems arrival and reports chest pain improved. pt reports hx of triple bypass. pt lung sounds clear bilaterally. iv access established, labs obtained and sent.
--- NOTE | 2023-06-05 06:33 | PC.NURSE ---
pt A paced on tele, 55BPM.
[2023-06-05 07:36] VITALS: PULSE 56; RESP 19; O2SAT 95
--- NOTE | 2023-06-05 07:37 | PC.NURSE ---
pt reports cp resolved. nad. at bedside. awaiting primary eval by ed provider.
[2023-06-05 07:49] VITALS: BP 120/70; PULSE 56; RESP 17; TEMP 36.4; O2SAT 94
--- NOTE | 2023-06-05 08:14 | ED.CHESTPAIN ---
HPI - Chest Pain General Chief Complaint: Chest Pain Stated Complaint: cp Time Seen by Provider: 06/05/23 07:49 Source: patient, family, EMS and RN notes reviewed Mode of arrival: EMS Limitations: no limitations History of Present Illness HPI narrative: Patient is an 82-year-old male with history of CAD, CABG x 3, pacemaker set to 55bpm, DM, HTN, HLD, left breast CA s/p left mastectomy and radiation, sick sinus syndrome presenting to the ED with complaint of tingling to right anterior chest which began 2-3 hours prior to arrival. Reports tingling was constant for several hours. Patient states symptoms have since resolved. He denies having chest pain or palpitations at any point. Denies dyspnea, cough, fevers. Denies abdominal pain, nausea, vomiting, diarrhea. Denies dizziness or lightheadedness. Family reports that patient recently saw Dr. Perez on Monday for a follow up appointment and was told everything was good. Denies recent calf pain or swelling, denies lower extremity edema. Took ASA prior to EMS arrival. MD complaint: chest discomfort Pertinent past history: coronary artery disease, CABG and other Onset (ago): hour(s) Timing of current episode: now resolved Onset: during rest Pain location: right chest Pain radiation: none Relieving factors: nothing Exacerbating factors: nothing Treatment prior to arrival: aspirin Related Data Home Medications Medication Instructions Recorded Confirmed bimatoprost 0.01 % eye drops 1 drp ophthalmic (eye) BEDTIME 05/28/20 05/30/23 bupropion HCl 150 mg 24 hr tablet, 150 mg PO DAILY 05/25/21 05/30/23 extended release cyanocobalamin (vitamin B-12) 1,000 mcg PO DAILY 06/09/22 05/30/23 1,000 mcg tablet (Vitamin B-12) folic acid 1 mg tablet 1 mg PO DAILY 06/09/22 05/30/23 melatonin 10 mg tablet 1 tab PO BEDTIME PRN insomnia 07/05/22 05/30/23 metformin 500 mg tablet,extended 500 mg PO DAILY 07/05/22 05/30/23 release 24 hr Previous Rx's Medication Instructions Recorded alendronate 70 mg tablet 70 mg PO SA 30 days #5 tabs 04/16/21 alfuzosin 10 mg tablet,extended 1 tab PO BEDTIME 90 days #90 tabs 04/16/21 release 24 hr atorvastatin 80 mg tablet 80 mg PO DAILY 90 days #90 tabs 04/16/21 finasteride 5 mg tablet 5 mg PO DAILY 30 days #30 tabs 04/16/21 lamotrigine 25 mg tablet 25 mg PO BID #60 tabs 04/16/21 olanzapine 10 mg tablet 10 mg PO BEDTIME 30 days #30 tabs 04/16/21 pantoprazole 40 mg tablet,delayed 40 mg PO DAILY 30 days #30 tabs 04/16/21 release metoprolol tartrate 25 mg tablet 12.5 mg (1/2 x 25 mg) PO BID #90 04/18/23 tabs Allergies Allergy/AdvReac Type Severity Reaction Status Date / Time Penicillins Allergy Unknown Unknown Verified 06/05/23 05:39 metoprolol AdvReac Intermediate bradycardia Verified 06/05/23 05:39 timolol AdvReac Intermediate low bp Verified 06/05/23 05:39 tamsulosin [From Flomax] AdvReac Mild Diarrhea Verified 06/05/23 05:39 beta blockers AdvReac Hypotension Uncoded 06/05/23 05:39 Review of Systems Review of Systems: As per HPI. Yes all other systems are reviewed and are negative Constitutional: Constitutional: Reports as per HPI [facility] Past Medical History Medical History History of left breast cancer CAD (coronary artery disease) Cardiac pacemaker in situ Sick sinus syndrome HTN (hypertension) Diabetes Hyperlipidemia Surgical History Hx of cataract surgery Hx of mastectomy History of permanent cardiac pacemaker placement Hx of CABG Family History Family History Father CVD (cardiovascular disease) Mother CVD (cardiovascular disease) Brother CVD (cardiovascular disease) Sister Diabetes Son Diabetes Social History Social History Household Members: Spouse Housing: House Do you presently have visiting nurse or other home services: No Alcohol intake: never Patient Tobacco Use Status: Former Tobacco user Tobacco use type: Cigarette Smoked in Last 30 Days: No Use of substances other than those prescribed or required for medical reasons: No Advance Directives: Yes Advance Directives on File: Yes Advance Directives Date on File: 03/17/21 service: No Sexual orientation: Straight/Heterosexual Physical Exam Vital Signs: Vital Signs: Last Vital Signs Temp 97.4 F 06/05/23 10:22 Pulse 61 06/05/23 10:22 Resp 16 06/05/23 10:22 BP 142/81 H 06/05/23 10:22 Pulse Ox 95 06/05/23 10:22 O2 Del Method Room Air 06/05/23 10:22 BMI result Body Mass Index 27.9 Vital signs have been reviewed and appear to be correct. Blood pressure normal. Heart rate normal. Respiratory rate normal. Temperature normal. Oxygen saturation normal. Const: General: cooperative and no acute distress Orientation/consciousness: oriented to person, oriented to place, oriented to time and patient oriented x3 Limitations: no limitations HEENT: Head: Yes normocephalic and Yes atraumatic Ears: external ears normal General nose exam: Normal external nose present Face and sinus: Yes face symmetric Mouth: oropharynx normal and moist mucous membranes Throat: Yes uvula midline Eyes: Pupils: Equal, round and reactive pupils present Neck: Neck: Yes normal visual inspection and Yes supple Chest: Chest palpation & inspection: normal palpation of entire chest wall and abnormal inspection of the chest scar Resp: Effort & Inspection: normal respiratory effort and able to speak in complete sentences Auscultation: clear to auscultation bilaterally Cardio: Rate: regular rate Rhythm: regular rhythm Heart sounds: S1 normal heart sound present and S2 normal heart sound present GI: Palpation (GI): Soft to palpation and nontender Auscultation: normoactive bowel sounds : General: Yes no CVA tenderness Back/Spine/Pelvis: Back: no CVA tenderness Skin: General skin exam: elasticity normal and turgor normal Neuro: General: oriented to person, oriented to place, oriented to time, patient oriented x3, moves all extremities, no focal motor deficits and CN's II-XI intact bilaterally Cranial nerves: Yes Equal, round and reactive pupils present Cognition (Neuro): normal cognition Extrem: General: Yes full ROM, Yes no pedal edema and Yes no calf tenderness Psych: Mental Status: mental status grossly normal Affect: normal affect Thought process: Normal thought process present Medical Decision Making Medical Decision Making MDM Narrative: Patient is an 82-year-old male with history of CAD, CABG x 3, pacemaker set to 55bpm, DM, HTN, HLD, left breast CA s/p left mastectomy and radiation, sick sinus syndrome presenting to the ED with complaint of tingling to right anterior chest which began 2-3 hours prior to arrival. On exam patient is awake, A+Ox3, VS WNL, afebrile, normal neurological exam without focal deficits, physical exam findings as above. Given reported symptoms and physical exam findings, initial differential includes ACS, musculoskeletal pain, pneumonia, viral illness. Unlikely dissection, PTX, PE (negative Wells). Labs notable for no leukocytosis, chronic stable anemia, no evidence of WALLACE, negative troponin, will obtain repeat in 3 hours to assess for delta. EKG shows atrial paced rhythm similar to priors. Repeat troponin flat. Flu and Covid swabs negative. X-ray notable for right lower lobe opacity. My interpretation is in agreement with the radiologist's interpretation. Given that patient denies cough, fever, shortness of breath or difficulty breathing, feel this is likely related to sclerosis of healed rib fracture and does not represent pneumonia. HEART score 5. Feel patient is stable for discharge home at this time. Instructed patient to follow up with PCP. Return precautions discussed at bedside. Patient and family verbalized understanding of and agreement with plan. Wells' Criteria for Pulmonary Embolism from [email or web address] on 06/05/2023 All calculations should be rechecked by clinician prior to use RESULT SUMMARY: 0.0 points Low risk group: 1.3% chance of PE in an ED population. Another study assigned scores <=4 as ?PE Unlikely? and had a 3% incidence of PE. INPUTS: Clinical signs and symptoms of DVT ?> 0 = No PE is #1 diagnosis OR equally likely ?> 0 = No Heart rate > 100 ?> 0 = No Immobilization at least 3 days OR surgery in the previous 4 weeks ?> 0 = No Previous, objectively diagnosed PE or DVT ?> 0 = No Hemoptysis ?> 0 = No Malignancy w/ treatment within 6 months or palliative ?> 0 = No Differential Diagnosis Differential Diagnoses: The differential diagnosis associated with the presentation includes As per [facility] Admission/Observation Consideration of admission/observation: Escalation of care including admission/observation considered Lab Data [facility] Lab Attestation statement: I reviewed the patient's lab results. As per [facility] 06/05/23 05:46 06/05/23 05:46 Labs: Lab Results 06/05/23 06/05/23 Range/Units 05:46 08:36 WBC 10.7 (4.8-10.8) X10*3/uL RBC 4.22 L (4.60-5.80) X10*6/uL Hgb 12.7 L (14.0-18.0) g/dl Hct 37.8 L (42.0-52.0) % MCV 89.6 (80.0-98.0) fL MCH 30.1 (27.0-33.0) pg MCHC 33.6 (31.0-36.0) g/dl RDW 13.4 (11.0-16.0) % Plt Count 289 D (160-400) X10*3/uL MPV 9.0 L (9.4-12.4) fL Immature Gran % (Auto) 0.3 (0.0-0.4) % Neut % (Auto) 77.0 H (45-73) % Lymph % (Auto) 12.9 L (20-40) % Bryan % (Auto) 7.4 (2-11) % Eos % (Auto) 1.8 (0-4) % Baso % (Auto) 0.6 (0-2) % Lymph # (Auto) 1.4 (1.2-4.9) X10*3/uL Bryan # (Auto) 0.8 (0.1-1.2) X10*3/uL Eos # (Auto) 0.2 (0.0-0.4) X10*3/uL Baso # (Auto) 0.1 (0.0-0.2) X10*3/uL Abs Immat Gran (auto) 0.03 (0.00-0.03) X10*3/uL Absolute Neuts (auto) 8.3 (2.0-8.3) x10*3/uL Absolute Nucleated RBC 0.000 (0.0-0.012) X10*3/uL Nucleated RBC % (auto) 0.0 (0.0-0.2) /100WBC Sodium 140 (135-145) mmol/L Potassium 4.0 (3.3-5.1) mmol/L Chloride 108 (96-108) mmol/L Carbon Dioxide 23 (22-29) mmol/L Anion Gap 13 (12-20) BUN 13 (9-16) mg/dL Creatinine 0.92 (0.5-1.4) mg/dL Estim Creat Clear Calc 60.9 Estimated GFR > 60 Random Glucose 173 H (60-115) mg/dL Calcium 9.6 (8.4-10.2) mg/dL Troponin I High Sens 5.3 5.3 (<3.5-35.0) ng/L COVID-19 (ANDRE) Negative (Negative) COVID-19 Clin Com See Note Influenza Type A (DAVID) Negative (Negative) Influenza Type B (DAVID) Negative (Negative) Influenza A & B Note See Note Independent Interpretation I performed an independent interpretation of an: EKG (atrial paced rhythm with prolonged AV conduction prior to previous EKGs, rate 55bpm, normal QT interval) and Plain X-Ray Interpretation: Right lower lobe opacity, unlikely pneumonia Radiology Impression Discussion of test interpretation with radiology: I have reviewed the radiologist's reading. Radiologist Impression: XR/XR chest 2V IMPRESSION: 1. Right lower lobe atelectasis and/or pneumonia. 2. Slight blunting of the left costophrenic angle could represent pleural thickening or minimal pleural fluid. Independent Historian Clinical information obtained from an independent historian. History obtained from or confirmed by: Spouse External Record Review External record reviewed: Inpatient record, Office record and Outpatient record Scores Heart Score History: -0- slightly suspicious ECG: -1- non specific repolarization disturbance Age: -2- > or = 65 Risk factory: -2- 3 or more risk factors or treated atherosclerosis Troponin: -0- < or = normal limit Score: 5 Risk: 16.6% Discharge Plan Discharge Clinical Impression: Chest discomfort Patient Disposition: Home, Self-Care Instructions: Chest Pain (DC) Additional Instructions: You were evaluated in the emergency department today for chest discomfort. Your evaluation has shown no signs of medical conditions requiring emergent intervention at this time, however we recommend that you follow-up with your primary care physician or your personnel research psychologist as soon as possible for further testing as an outpatient. Please schedule an appointment for follow-up with your primary care physician as soon as possible. Return to the emergency department if you experience worsening or uncontrolled chest pain, shortness of breath, lightheadedness, feeling faint, loss of consciousness, nausea, vomiting, or any other concerning symptoms. Prescriptions: No Action metoprolol tartrate 25 mg tablet 12.5 mg PO BID Qty: 90 3RF melatonin 10 mg tablet 1 tab PO BEDTIME PRN (Reason: insomnia) metformin 500 mg tablet extended release 24 hr 500 mg PO DAILY olanzapine 10 mg Tablet 10 mg PO BEDTIME 30 Days Qty: 30 0RF atorvastatin 80 mg tablet 80 mg PO DAILY 90 Days Qty: 90 3RF alendronate 70 mg tablet 70 mg PO SA 30 Days Qty: 5 0RF lamotrigine 25 mg tablet 25 mg PO BID Qty: 60 0RF pantoprazole 40 mg tablet,delayed release (DR/EC) 40 mg PO DAILY 30 Days Qty: 30 0RF finasteride 5 mg tablet 5 mg PO DAILY 30 Days Qty: 30 0RF alfuzosin 10 mg tablet extended release 24 hr 1 tab PO BEDTIME 90 Days Qty: 90 0RF bimatoprost 0.01 % drops 1 drp ophthalmic (eye) BEDTIME bupropion HCl 150 mg tablet extended release 24 hr 150 mg PO DAILY folic acid 1 mg tablet 1 mg PO DAILY cyanocobalamin (vitamin B-12) [Vitamin B-12] 1,000 mcg tablet 1,000 mcg PO DAILY
[2023-06-05 08:40] VITALS: BP 122/75
--- NOTE | 2023-06-05 08:40 | PC.NURSE ---
repeat labs drawn sent to lab.
[2023-06-05 09:01] LABS: Troponin-I High Sensitivity 5.3 ng/L (<3.5-35.0)
[2023-06-05 09:11] LABS: COVID-19 Test Negative (Negative); IDNOW Serial# 08D9AD1C; IDNOW Serial# BCCEAD1C; Influenza A Negative (Negative); Influenza B2 Negative (Negative)
[2023-06-05 10:22] VITALS: BP 142/81; PULSE 61; RESP 16; TEMP 36.3; O2SAT 95
== END 2023-06-05 10:53 | disposition home or self-care (01) ==
PROVIDERS: Registered Nurse Emergency; Emergency Provider Emergency Medicine; PCP Internal Medicine Infectious Disease
DX: R07.89 Other chest pain (principal); I10 Essential (primary) hypertension; I25.10 Atherosclerotic heart disease of native coronary artery without angina pectoris; Z87.891 Personal history of nicotine dependence; Z11.52 Encounter for screening for COVID-19; Z20.822 Contact with and (suspected) exposure to COVID-19
CPT/HCPCS: 36415; 71046; 80048; 84484; 85025; 87502; 87635; 93005; 99284; 99285

== ENCOUNTER 2023-12-04 12:30 | Outpatient (AMB) | payer MEDICARE, SELFPAY ==
--- NOTE | 2023-12-04 12:34 | A.OFFVIS_ITS ---
Vital Signs 12/04/23 12:36 Height 5 ft 5 in Weight 165 lb 5.547 oz BMI 27.5 BP 110/68 Blood Pressure Location Lt brachial Position Sitting Pulse 55 Intake Visit Reasons: follow-up with [facility] Intake Note: 6 month follow-up with [facility] Account Manager Sales Representative Required: No Utility Locate Technician: Utility Locate Technician Present Accompanied by: Spouse Allergies Penicillins Allergy (Unknown, Verified 06/05/23 05:39) Unknown metoprolol Adverse Reaction (Intermediate, Verified 06/05/23 05:39) bradycardia timolol Adverse Reaction (Intermediate, Verified 06/05/23 05:39) low bp tamsulosin [From Flomax] Adverse Reaction (Mild, Verified 06/05/23 05:39) Diarrhea beta blockers Adverse Reaction (Uncoded 06/05/23 05:39) Hypotension Medication List - Last Reconciled 12/04/23 by David Perez MD alendronate 70 mg PO SA 30 days alfuzosin ER 1 tab PO BEDTIME 90 days atorvastatin 80 mg PO DAILY 90 days bimatoprost 0.01% 1 drp ophthalmic (eye) BEDTIME bupropion HCl XL 150 mg PO DAILY cyanocobalamin (vitamin B-12) (Vitamin B-12) 1,000 mcg PO DAILY finasteride 5 mg PO DAILY 30 days folic acid 1 mg PO DAILY lamotrigine 25 mg PO BID melatonin 1 tab PO BEDTIME PRN metformin ER 500 mg PO DAILY metoprolol tartrate 12.5 mg (1/2 x 25 mg) PO BID olanzapine 10 mg PO BEDTIME 30 days pantoprazole 40 mg PO DAILY 30 days HPI Comments Details: Travon Comes for follow-up. He denies any new cardiac complaints. Continues to have issues with balance as per his . Denies any chest pain. Denies any shortness of breath, orthopnea, PND, leg edema. Takes all his medications. Blood pressure at home are well optimized. No lightheadedness, syncope. No prolonged palpitation PFSH Medical History History of left breast cancer CAD (coronary artery disease) Cardiac pacemaker in situ Sick sinus syndrome HTN (hypertension) Diabetes Hyperlipidemia Surgical History Hx of cataract surgery Hx of mastectomy History of permanent cardiac pacemaker placement Hx of CABG Family History Father CVD (cardiovascular disease) Mother CVD (cardiovascular disease) Brother CVD (cardiovascular disease) Sister Diabetes Son Diabetes Social History Household Members: Spouse Housing: House Do you presently have visiting nurse or other home services: No Alcohol intake: never Patient Tobacco Use Status: Former Tobacco user Tobacco use type: Cigarette Advance Directives Date on File: 03/17/21 service: No Sexual orientation: Straight/Heterosexual Review of Systems Const Denies chills, Denies fatigue, Denies fever(s), Denies frequent falls, Denies weakness, Denies weight gain and Denies weight loss ENT Denies dizziness Card Denies chest pain, Denies leg edema, Denies lightheadedness, Denies palpitations, Denies dyspnea, Denies dyspnea on exertion, Denies orthopnea and Denies other (loss of consciousness) Resp Denies cough, Denies dyspnea and Denies dyspnea on exertion GI Denies hematochezia and Denies change in stool character Musc Denies abnormal gait, Denies muscle weakness, Denies numbness, Denies radiating pain into limb and Denies tingling Neuro Denies abnormal gait, Denies dizziness, Denies frequent falls, Denies numbness, Denies tingling and Denies weakness Endo Denies fatigue and Denies palpitations Physical Exam Vital Signs: Last Vital Signs Pulse 55 12/04/23 12:36 BP 110/68 12/04/23 12:36 BMI result Body Mass Index 27.5 Const General: cooperative, comfortable, no acute distress, alert, awake and well groomed Nutritional Appearance: other (frail) Orientation/consciousness: patient oriented x3 Limitations: ambulation with walker Neck Neck: Yes trachea midline, Yes supple and Yes no JVD Resp Effort & Inspection: normal respiratory effort Auscultation: clear to auscultation bilaterally Cardio Jugular venous distension: no JVD Palpation: normal PMI Rate: regular rate Rhythm: regular rhythm Heart sounds: S1 normal heart sound present and S2 normal heart sound present GI Auscultation: normal bowel sounds Skin General skin exam: no rashes or lesions noted Neuro General: patient oriented x3 and no focal motor deficits Extrem General: Yes no clubbing, cyanosis or edema Psych Appearance: grossly normal Office Procedures Cardiac Device Check Cardiac Device Check 26875-[id number] Cardiac Device Check, pacemaker dual lead Procedure code (CPT) selection complete Assessment & Plan Assessment & Plan (1) CAD (coronary artery disease): Code(s): I25.10 - Atherosclerotic heart disease of three affiliated coronary artery without angina pectoris Category: Medical Plan: CAD with prior coronary artery bypass grafting, stable with no current symptoms of angina. Continue aggressive risk factor modification. Blood pressure is well optimized. Continue lifelong aspirin therapy. Continue high-intensity statin therapy with target goal LDL closer to 60 mg/dL. Advised to maintain activity level as tolerated. Advised to call me with any new symptoms. (2) Cardiac pacemaker in situ: Comment: [employer] dual-chamber pacemaker, moved from left chest to right chest AprilNovember 2016 Code(s): Z95.0 - Presence of cardiac pacemaker Category: Medical Plan: Cardiac pacemaker in-situ, working well. Reprogrammed for adequate functioning. Battery life is concerning and will follow-up with the pacemaker company regarding significant reduction in overall battery life. Will follow up in the clinic in 6 months time, sooner p.r.n.. Thank you for allowing me to partake in his care Coding Level of Care Code Est Pt Level 4 (83893) Diagnoses CAD (coronary artery disease) I25.10 Cardiac pacemaker in situ Z95.0 CPT Codes Cardiac Device Check - Cardiac Device 2: [id number] Cardiac Device Check, pacemaker dual lead ([id number])
[2023-12-04 12:36] VITALS: BP 110/68; PULSE 55; BMI 27.5
== END 2023-12-04 12:52 | disposition home or self-care (01) ==
PROVIDERS: PCP Internal Medicine Infectious Disease; Visit Provider Internal Medicine Cardiovascular Disease
DX: I25.10 Atherosclerotic heart disease of native coronary artery without angina pectoris (principal); Z95.0 Presence of cardiac pacemaker
CPT/HCPCS: 93280; 99214

== ENCOUNTER → 2023-12-04 12:30 | Outpatient (BNVA) | payer MEDICARE, SELFPAY | PROVIDERS: PCP Internal Medicine Infectious Disease; Visit Provider Internal Medicine Cardiovascular Disease | DX: Z45.018 Encounter for adjustment and management of other part of cardiac pacemaker (principal); I25.10 Atherosclerotic heart disease of native coronary artery without angina pectoris | CPT/HCPCS: 93280; 99212 ==

== ENCOUNTER 2024-01-31 22:58 | Inpatient (IN) | payer MEDICARE, SELFPAY ==
--- NOTE | ~2024-01-31 | XR_ITS ---
EXAMINATION: XR CHEST XR KUB CLINICAL INFORMATION: Crackles in chest. Abdominal distention. COMPARISON: CXR from 02/01/2024 at 12:35 AM TECHNIQUE: Chest, AP view Abdomen, 2 views FINDINGS: CHEST: Lungs are well expanded and there is no evidence of acute disease. No pulmonary consolidation. Old calcified granulomas and old calcified mediastinal and hilar lymph nodes. Cardiac silhouette is normal in size. There is a right pectoral region cardiac pacemaker with intact transvenous leads extending to the right atrium and right ventricle. Sternotomy wires are intact. Atherosclerosis of the aorta. Pulmonary vascular pattern is normal. No cephalization of pulmonary venous flow. There appears to be a chronically blunted left lateral costophrenic sulcus. Surgical clips are seen in the left lateral pectoral/axillary region. ABDOMEN: No dilated loops of bowel. No air-fluid levels within bowel on the upright view. No pneumoperitoneum. There is atherosclerotic calcification of aorta, iliac and femoral arteries. No radiographic evidence of renal calculi. No acute osseous abnormality. XR/XR KUB IMPRESSION: * No acute pulmonary disease. * No evidence of bowel obstruction. No acute radiographic abnormalities in the abdomen.
--- NOTE | ~2024-01-31 | XR_ITS ---
EXAMINATION: XR CHEST XR KUB CLINICAL INFORMATION: Crackles in chest. Abdominal distention. COMPARISON: CXR from 02/01/2024 at 12:35 AM TECHNIQUE: Chest, AP view Abdomen, 2 views FINDINGS: CHEST: Lungs are well expanded and there is no evidence of acute disease. No pulmonary consolidation. Old calcified granulomas and old calcified mediastinal and hilar lymph nodes. Cardiac silhouette is normal in size. There is a right pectoral region cardiac pacemaker with intact transvenous leads extending to the right atrium and right ventricle. Sternotomy wires are intact. Atherosclerosis of the aorta. Pulmonary vascular pattern is normal. No cephalization of pulmonary venous flow. There appears to be a chronically blunted left lateral costophrenic sulcus. Surgical clips are seen in the left lateral pectoral/axillary region. ABDOMEN: No dilated loops of bowel. No air-fluid levels within bowel on the upright view. No pneumoperitoneum. There is atherosclerotic calcification of aorta, iliac and femoral arteries. No radiographic evidence of renal calculi. No acute osseous abnormality. XR/XR chest 1V IMPRESSION: * No acute pulmonary disease. * No evidence of bowel obstruction. No acute radiographic abnormalities in the abdomen.
--- NOTE | ~2024-01-31 | CT_ITS ---
EXAMINATION: CT HEAD WITHOUT CONTRAST CT CERVICAL SPINE WITHOUT CONTRAST CLINICAL INFORMATION: Fall. Pain. COMPARISON: 07/05/2022. TECHNIQUE: Contiguous axial imaging was performed through the head and cervical spine without intravenous administration of contrast. Sagittal and coronal reformatted images also obtained. This CT examination was performed using dose optimization techniques as appropriate, variously including the following: *Automated exposure control *Adjustment of mA and/or kV according to patient size (this includes techniques or standardized protocols for targeted exams where dose is matched to indication/reason for exam; i.e. extremities or head) *Use of iterative reconstruction technique DLP: 1101 mGy-cm FINDINGS: There is cerebral volume loss with prominence of the lateral and the third ventricles. The cortical sulci are widened appropriately. The fourth ventricle and basal cisterns are normally outlined. There is mild bilateral periventricular and central white matter diminished attenuation. There is no acute territorial defect, hemorrhage or midline shift. The extra-axial spaces are unremarkable. Calvarium/scalp: Intact. Maxillofacial sinuses and mastoids: There are frontal, ethmoidal and maxillary sinus opacities. The mastoids are clear. Cervical spine: There is minimal anterolisthesis C4 over C5. There is straightening of the expected cervical spine curvature. There is moderate C5-C6 and C6-C7 disc degenerative change and mild degenerative change of the remaining cervical spine with loss of disc space, endplate change and posterior osteophytes at C5-C6 and C6-C7 associated with diffuse moderate facet osteoarthritic hypertrophic change with multilevel mild spinal canal and neuroforaminal narrowing. No fracture is seen. The soft tissues are unremarkable. There is right apical scarring. CT/CT cervical spine wo IV con IMPRESSION: CT HEAD: 1. No acute intracranial abnormality. 2. Age-related cerebral volume loss and mild chronic small vessel ischemic changes. 3. Pansinusitis. CT CERVICAL SPINE: 1. Straightening of the expected cervical spine curvature. 2. No acute cervical spine fracture or dislocation. 3. Multilevel cervical spondylosis and facet osteoarthritic changes as described above.
--- NOTE | ~2024-01-31 | XR_ITS ---
EXAMINATION: XR CHEST CLINICAL INFORMATION: Cough. Dyspnea. COMPARISON: 06/05/2023. TECHNIQUE: Frontal view of the chest was obtained. FINDINGS: The cardiomediastinal silhouette is stable. Multiple pacer leads are again seen in place similar to previous. There is chronic blunting of the left costophrenic angle similar to previous. There is no focal lung consolidation. The bony structures are osteopenic. The soft tissues are unremarkable. XR/XR chest 1V IMPRESSION: Chronic blunting of the left costophrenic angle similar to previous. No acute cardiopulmonary process.
[2024-01-31 23:02] VITALS: BP 127/63; BP 129/62; PULSE 65; PULSE 90; RESP 20; TEMP 37.8; O2SAT 94; BMI 25.7
--- NOTE | 2024-01-31 23:12 | ECG_ITS ---
Test Reason : WEAKNESS Blood Pressure : / mmHG Vent. Rate : 072 BPM Atrial Rate : 072 BPM P-R Int : 238 ms QRS Dur : 094 ms QT Int : 376 ms P-R-T Axes : 108 -11 130 degrees QTc Int : 411 ms Sinus rhythm with 1st degree A-V block ST & T wave abnormality, consider lateral ischemia Abnormal ECG When compared with ECG of 05-JUN-2023 05:52, Sinus rhythm has replaced Electronic atrial pacemaker T wave inversion now evident in Lateral leads Referred By: Jennifer Lord Electronically Signed By:KERMIT LEROY
--- NOTE | 2024-01-31 23:17 | ED.GENADULT ---
HPI - General Adult General Chief complaint: Weakness Stated complaint: WEAKNESS,AMS Time Seen by Provider: 01/31/24 23:03 Source: EMS Mode of arrival: EMS Limitations: altered mental status History of Present Illness ED Provider: Dr. Jennifer Lord HPI narrative: Patient comes to the emergency room via ambulance from home. According to EMS, the family reports that the patient had a fall earlier today, seems that the patient's fall was witnessed, no head injury. However, they family reports that the patient has been altered and weaker than usual. Patient is awake, alert, but unable to provide any history. Patient states that he has no pain anywhere. Related Data Home Medications ?Medication ?Instructions ?Recorded ?Confirmed bimatoprost 0.01 % eye drops 1 drp ophthalmic (eye) BEDTIME 05/28/20 12/04/23 bupropion HCl 150 mg 24 hr tablet, 150 mg PO DAILY 05/25/21 12/04/23 extended release cyanocobalamin (vitamin B-12) 1,000 mcg PO DAILY 06/09/22 12/04/23 1,000 mcg tablet (Vitamin B-12) folic acid 1 mg tablet 1 mg PO DAILY 06/09/22 12/04/23 melatonin 10 mg tablet 1 tab PO BEDTIME PRN insomnia 07/05/22 12/04/23 metformin 500 mg tablet,extended 500 mg PO DAILY 07/05/22 12/04/23 release 24 hr Previous Rx's ?Medication ?Instructions ?Recorded alendronate 70 mg tablet 70 mg PO SA 30 days #5 tabs 04/16/21 alfuzosin 10 mg tablet,extended 1 tab PO BEDTIME 90 days #90 tabs 04/16/21 release 24 hr atorvastatin 80 mg tablet 80 mg PO DAILY 90 days #90 tabs 04/16/21 finasteride 5 mg tablet 5 mg PO DAILY 30 days #30 tabs 04/16/21 lamotrigine 25 mg tablet 25 mg PO BID #60 tabs 04/16/21 olanzapine 10 mg tablet 10 mg PO BEDTIME 30 days #30 tabs 04/16/21 pantoprazole 40 mg tablet,delayed 40 mg PO DAILY 30 days #30 tabs 04/16/21 release metoprolol tartrate 25 mg tablet 12.5 mg (1/2 x 25 mg) PO BID #90 04/18/23 tabs Allergies Allergy/AdvReac Type Severity Reaction Status Date / Time Penicillins Allergy Unknown Unknown Verified 01/31/24 23:13 metoprolol AdvReac Intermediate bradycardia Verified 01/31/24 23:13 timolol AdvReac Intermediate low bp Verified 01/31/24 23:13 tamsulosin [From Flomax] AdvReac Mild Diarrhea Verified 01/31/24 23:13 beta blockers AdvReac Hypotension Uncoded 01/31/24 23:13 Review of Systems Review of Systems: Yes Unobtainable due to mental condition [facility] Past Medical History Medical History History of left breast cancer CAD (coronary artery disease) Cardiac pacemaker in situ Sick sinus syndrome HTN (hypertension) Diabetes Hyperlipidemia Surgical History Hx of cataract surgery Hx of mastectomy History of permanent cardiac pacemaker placement Hx of CABG Family History Family History Father CVD (cardiovascular disease) Mother CVD (cardiovascular disease) Brother CVD (cardiovascular disease) Sister Diabetes Son Diabetes Social History Social History Household Members: Spouse Housing: House Do you presently have visiting nurse or other home services: No Alcohol intake: never Patient Tobacco Use Status: Former Tobacco user Tobacco use type: Cigarette Smoked in Last 30 Days: No Use of substances other than those prescribed or required for medical reasons: No Advance Directives: Yes Advance Directives on File: Yes Advance Directives Date on File: 03/17/21 Do you have a plan to hurt others: No Plan service: No Sexual orientation: Straight/Heterosexual Physical Exam ED Vital Signs: Vital Signs - 24 hr 01/31/24 23:02 01/31/24 23:32 01/31/24 23:38 Temperature 100.0 F 102.0 F H 102.6 F H Pulse Rate 65 67 Respiratory Rate 20 27 H Blood Pressure 129/62 133/67 Pulse Oximetry 93 Oxygen Delivery Method Room Air Room Air 01/31/24 23:47 02/01/24 00:08 02/01/24 00:24 Temperature 102.7 F H 102.6 F H 102.6 F H Pulse Rate 68 68 76 Respiratory Rate 22 H 20 24 H Blood Pressure 118/64 106/67 134/70 Pulse Oximetry 95 94 94 Oxygen Delivery Method Room Air Room Air Room Air 02/01/24 00:24 02/01/24 01:07 Temperature 102.6 F H 102.4 F H Pulse Rate 75 89 Respiratory Rate 22 H 20 Blood Pressure 134/70 138/76 Pulse Oximetry 94 91 L Oxygen Delivery Method Room Air Room Air BMI result Body Mass Index 25.7 Const Other: Appearance: Alert. Oriented X1. No acute distress. Seems a bit confused facility able to answer yes no to some questions, able to follow commands Eyes: Pupils equal, round and reactive to light. ENT: Pharynx normal. Neck: Normal inspection. Neck supple. No lymph nodes noted. No crepitus CVS: Normal heart rate and rhythm. Pulses normal. Normal S1 and S2 Respiratory: No respiratory distress. Breath sounds normal. No Wheezing. No rales Abdomen: Soft and nontender. No rigidity. No distention. Skin: Skin warm and dry. Normal skin color. Normal skin turgor. Extremities: No lower extremity edema. No Lacerations. No Rash Neuro: Oriented X1. Able to follow commands, cranial nerves 2-12 grossly intact Psych: calm, cooperative Course Course Course Narrative: -all of patient's labs pending -CT scans pending Medications Administered Discontinued Medications Generic Name Dose Route Start Last Admin Trade Name Concha PRN Reason Stop Dose Admin Acetaminophen 650 mg 02/01/24 00:55 02/01/24 01:07 Acetaminophen 325 Mg Tablet PO 02/01/24 00:56 650 mg ONCE ONE Administration Sodium Chloride 2,000 mls @ 999 mls/hr 01/31/24 23:32 01/31/24 23:57 Ns IVCONT 02/01/24 01:32 999 mls/hr .Q2H1M ONE Administration Ceftriaxone Sodium 1 gm/ 50 mls @ 100 mls/hr 01/31/24 23:32 02/01/24 00:49 Sodium Chloride IV 02/01/24 00:01 Infused ONCE ONE Infusion Medical Decision Making Medical Decision Making [facility] Narrative: -11 30 p.m., I was informed by the patient's nurse that the patient's rectal temperature is 102 F. patient's blood pressure stable. No episodes of hypotension -patient was able to urinate, patient's urine looks questionable or UTI. However, at this time we do not have any of the labs or imaging available. -this time, 23:30, sepsis is not suspected. Patient is getting IV fluids, empirically being treated with ceftriaxone for potentially a UTI. -00:50 patient's labs available, white blood cell count 11.1, lactic acid 2.5, urine analysis negative for UTI, serology positive for COVID -patient's lactic acid elevation likely secondary to dehydration as patient has not been eating and drinking enough. Sepsis is not suspected. -patient's family has been informed of the diagnosis, family states that the patient at baseline is usually to get up from bed and walk with his walker, today he is way too weak can not get up from bed. -discussed with the patient and his family that once the workup is complete, patient will be admitted. -my interpretation of head CT and cervical spine : No acute findings, increase volume in lateral ventricles -my interpretation of x-ray of the chest, no obvious infiltrates, defibrillator in place -patient's oxygen saturation is 94% on room air Differential Diagnosis Differential Diagnoses: The differential diagnosis associated with the presentation includes (UTI, COVID, viral syndrome) Admission/Observation Consideration of admission/observation: Escalation of care including admission/observation considered Consult Healthcare Provider Management of the patient was discussed with: Hospitalist Lab Data MDM Lab Attestation statement: I reviewed the patient's lab results. 01/31/24 23:53 01/31/24 23:52 Labs: Lab Results 01/31/24 01/31/24 Range/Units 23:52 23:53 WBC 11.1 H (4.8-10.8) X10*3/uL RBC 3.86 L (4.60-5.80) X10*6/uL Hgb 11.9 L (14.0-18.0) g/dl Hct 34.6 L (42.0-52.0) % MCV 89.6 (80.0-98.0) fL MCH 30.8 (27.0-33.0) pg MCHC 34.4 (31.0-36.0) g/dl RDW 13.8 (11.0-16.0) % Plt Count 230 (160-400) X10*3/uL MPV 9.3 L (9.4-12.4) fL Immature Gran % (Auto) 0.4 (0.0-0.4) % Neut % (Auto) 88.9 H (45-73) % Lymph % (Auto) 3.3 L (20-40) % Long % (Auto) 7.0 (2-11) % Eos % (Auto) 0.1 (0-4) % Baso % (Auto) 0.3 (0-2) % Lymph # (Auto) 0.4 L (1.2-4.9) X10*3/uL Long # (Auto) 0.8 (0.1-1.2) X10*3/uL Eos # (Auto) 0.0 (0.0-0.4) X10*3/uL Baso # (Auto) 0.0 (0.0-0.2) X10*3/uL Abs Immat Gran (auto) 0.04 H (0.00-0.03) X10*3/uL Absolute Neuts (auto) 9.9 H (2.0-8.3) x10*3/uL Absolute Nucleated RBC 0.000 (0.0-0.012) X10*3/uL Nucleated RBC % (auto) 0.0 (0.0-0.2) /100WBC PT 13.9 H (11.1-13.3) SEC INR 1.1 (0.9-1.1) Sodium 136 (135-145) mmol/L Potassium 4.7 (3.3-5.1) mmol/L Chloride 104 (96-108) mmol/L Carbon Dioxide 23 (22-29) mmol/L Anion Gap 14 (12-20) BUN 22 H (9-16) mg/dL Creatinine 1.07 (0.5-1.4) mg/dL Estim Creat Clear Calc 50.6 Estimated GFR > 60 Random Glucose 251 H (60-115) mg/dL Lactic Acid 2.5 H* (0.5-2.0) mmol/L Calcium 10.4 H D (8.4-10.2) mg/dL Magnesium 1.6 (1.6-2.6) mg/dL Total Bilirubin 0.9 (0.0-1.0) mg/dL Direct Bilirubin 0.3 (0.0-0.5) mg/dL AST 28 (5-37) U/L ALT 24 (0-40) U/L Alkaline Phosphatase 81 (39-117) U/L Troponin I High Sens 23.0 D (<3.5-35.0) ng/L Total Protein 6.7 (6.5-8.0) g/dL Albumin 4.0 (3.5-5.0) g/dL Urine Color Yellow Urine Appearance Clear Urine pH 5.5 (5.0-9.0) Ur Specific [place] 1.025 (1.005-1.025) Urine Protein Trace (Neg-Trace) mg/dL Urine Glucose (UA) 100 H (Negative) mg/dL Urine Ketones Trace (Negative) mg/dL Urine Blood Negative (Negative) Urine Nitrite Negative (Negative) Ur Leukocyte Esterase Negative (Negative) COVID-19 (ANDRE) Positive A (Negative) COVID-19 Clin Com See Note Independent Interpretation I performed an independent interpretation of an: Plain X-Ray and CT Scan Radiology Impression Discussion of test interpretation with radiology: I have reviewed the radiologist's reading. Radiologist Impression: FINDINGS: There is cerebral volume loss with prominence of the lateral and the third ventricles. The cortical sulci are widened appropriately. The fourth ventricle and basal cisterns are normally outlined. There is mild bilateral periventricular and central white matter diminished attenuation. There is no acute territorial defect, hemorrhage or midline shift. The extra-axial spaces are unremarkable. Calvarium/scalp: Intact. Maxillofacial sinuses and mastoids: There are frontal, ethmoidal and maxillary sinus opacities. The mastoids are clear. Cervical spine: There is minimal anterolisthesis C4 over C5. There is straightening of the expected cervical spine curvature. There is moderate C5-C6 and C6-C7 disc degenerative change and mild degenerative change of the remaining cervical spine with loss of disc space, endplate change and posterior osteophytes at C5-C6 and C6-C7 associated with diffuse moderate facet osteoarthritic hypertrophic change with multilevel mild spinal canal and neuroforaminal narrowing. No fracture is seen. The soft tissues are unremarkable. There is right apical scarring. CT/CT cervical spine wo IV con IMPRESSION: CT HEAD: 1. No acute intracranial abnormality. 2. Age-related cerebral volume loss and mild chronic small vessel ischemic changes. 3. Pansinusitis. CT CERVICAL SPINE: 1. Straightening of the expected cervical spine curvature. 2. No acute cervical spine fracture or dislocation. 3. Multilevel cervical spondylosis and facet osteoarthritic changes as described above. The cardiomediastinal silhouette is stable. Multiple pacer leads are again seen in place similar to previous. There is chronic blunting of the left costophrenic angle similar to previous. There is no focal lung consolidation. The bony structures are osteopenic. The soft tissues are unremarkable. XR/XR chest 1V IMPRESSION: Chronic blunting of the left costophrenic angle similar to previous. No acute cardiopulmonary process. Independent Historian Clinical information obtained from an independent historian. History obtained from or confirmed by: Spouse and Other (Patient's daughter) Critical Care Time Critical Care Time Critical Care Time: Yes Total Critical Care Time: 75 Attestation: I have personally provided critical care time. Time includes review of lab data, radiology results, discussion with consultants, and monitoring for potential decompensation. Intervention performed as documented. Discharge Plan Discharge Clinical Impression: COVID-19, Weakness Patient Disposition: Admitted As Inpatient Print Language: Israeli
[2024-01-31 23:32] VITALS: TEMP 38.9
[2024-01-31 23:38] VITALS: BP 133/67; PULSE 67; RESP 27; TEMP 39.2; O2SAT 93
[2024-01-31 23:47] VITALS: BP 118/64; PULSE 68; RESP 22; TEMP 39.3; O2SAT 95
[2024-01-31] MEDS: 0.9 % Sodium Chloride 2,000 ML 999 ML IVCONT (23:57)
[2024-01-31] MEDS: cefTRIAXone sodium 1 GM in 0.9 % Sodium Chloride 50 ML IV (23:57)
[2024-02-01] VITALS (13 sets, daily range): BP systolic 100–156; BP diastolic 58–85; PULSE 59–89; RESP 14–24; TEMP 36.4–39.2; O2SAT 88–96
[2024-02-01] LABS: Basophils Percent Auto 0.3 % (0-2); Eosinophils Percent Auto 0.1 % (0-4); Hematocrit 34.6 % (42.0-52.0); Hemoglobin 11.9 g/dl (14.0-18.0); Imm Gran Abs Auto 0.04 X10*3/uL (0.00-0.03); Imm Gran Pct Auto 0.4 % (0.0-0.4); Lymphocytes Absolute Auto 0.4 X10*3/uL (1.2-4.9); Lymphocytes Percent Auto 3.3 % (20-40); MANUAL DIFF FLAG NO; Mean Corpuscular HGB Conc 34.4 g/dl (31.0-36.0); Mean Corpuscular Hemoglobin 30.8 pg (27.0-33.0); Mean Corpuscular Volume 89.6 fL (80.0-98.0); Mean Platelet Volume 9.3 fL (9.4-12.4); Monocytes Absolute Auto 0.8 X10*3/uL (0.1-1.2); Neutrophils Absolute Auto 9.9 x10*3/uL (2.0-8.3); Neutrophils Percent Auto 88.9 % (45-73); Platelet Count 230 X10*3/uL (160-400); Red Blood Count 3.86 X10*6/uL (4.60-5.80); Red Cell Distribution Width 13.8 % (11.0-16.0); White Blood Count 11.1 X10*3/uL (4.8-10.8)
--- NOTE | 2024-02-01 | MHC.EDTECH ---
Patient BIBA,changed into hospital attire,placed patient on the neonatal doctor,vitals completed, patient has a rectal temp of 102.0,Risa Meek was made aware. continues rectal probe placed and temp is 102.6 at this time, RN at bedside and is aware, Blood cultures,labs,and covid swab obtained and sent to lab,patient urinated 40MLS in urinal, urine sample collected and sent to lab. Family at bedside and call conti in reach
[2024-02-01 00:09] LABS: INTERNATIONAL NORM RATIO 1.1 (0.9-1.1); Prothrombin Time 13.9 SEC (11.1-13.3)
[2024-02-01 00:12] LABS: COVID-19 Test Positive (Negative); IDNOW Serial# 6674DD1D
[2024-02-01 00:13] LABS: Appearance Urine Clear; Color Urine Yellow; Glucose Urine UA 100 mg/dL (Negative); Leukocyte Esterase Urine Negative (Negative); Nitrite Urine Negative (Negative); PH 5.5 (5.0-9.0); Specific Gravity - Urine 1.025 (1.005-1.025); Urine Blood Negative (Negative); Urine Ketones Trace mg/dL (Negative); Urine Protein Trace mg/dL (Neg-Trace)
[2024-02-01 00:15] LABS: Alanine Aminotransferase 24 U/L (0-40); Alkaline Phosphatase 81 U/L (39-117); Anion Gap 14 (12-20); Aspartate Amino Transferase 28 U/L (5-37); Bilirubin Direct 0.3 mg/dL (0.0-0.5); Bilirubin Total 0.9 mg/dL (0.0-1.0); Blood Urea Nitrogen 22 mg/dL (9-16); Calcium 10.4 mg/dL (8.4-10.2); Carbon Dioxide 23 mmol/L (22-29); Chloride 104 mmol/L (96-108); Creatinine Clr Calc Pharmacy 50.6; Estimated Glomerular Filt Rate > 60; Glucose Random 251 mg/dL (60-115); Magnesium 1.6 mg/dL (1.6-2.6); Potassium 4.7 mmol/L (3.3-5.1); Sodium 136 mmol/L (135-145); Total Protein 6.7 g/dL (6.5-8.0)
[2024-02-01 00:22] LABS: Lactic Acid 2.5 mmol/L (0.5-2.0)
[2024-02-01] MEDS: Acetaminophen 325 MG TABLET 650 MG PO ×2 (01:07→22:19)
--- NOTE | 2024-02-01 01:09 | MHC.EDTECH ---
Belongings list completed,family took home all belongings
[2024-02-01 01:58] LABS: Reflex Lactate? Lactic Acid Added
--- NOTE | 2024-02-01 02:04 | MHC.EDTECH ---
Hourly rounds and vitals completed,patient sats were at 88%,provider asked for pt to be placed on 2L VNC ,kiln charger at bedside and placed O2. Patient was incont. of a large amount of urine,julieta-care given and linen changed,placed a [place] cath at this time,pt tolerated well,and its draining yellow urine at this time.call conti in reach
--- NOTE | 2024-02-01 02:15 | MHC.EDTECH ---
Repeat lactic drawn and sent to lab.
[2024-02-01 02:24] LABS: ~Lactic Acid-LAB USE ONLY 1.2 mmol/L (0.5-2.0)
--- NOTE | 2024-02-01 02:30 | PM.IMHP ---
History of Present Illness Date of Service: 02/01/24 Chief Complaint: AMS and weakness This is a 83-year-old male with pertinent history of coronary artery disease, hypertension, mixed hyperlipidemia, bipolar disorder, sno-deohkcj-uydxrkbaw diabetes mellitus who was brought to the emergency department for evaluation of weakness and altered mentation. Unable to obtain history from the patient. Patient does not know why he is at the hospital. History obtained from ER provider, chart review and family at bedside. The family states that patient was weak and unable to ambulate on the day of presentation. He had a witnessed fall due to weakness, did not lose consciousness. Did not hit his head. Did not complain of chest pain or palpitations prior to the fall. No jerking movement of extremities. Patient was also found to be confused on the day of presentation. Does endorse dry cough and chills. No documented temperature. No chest pain, shortness of breath, abdominal pain, changes in urinary or bowel habits. In the emergency department, patient tested positive for COVID-19 and requiring 2L supplemental oxygen. Review of Systems Review of Systems: Yes Unobtainable due to mental status [facility] Medical History History of left breast cancer CAD (coronary artery disease) Cardiac pacemaker in situ Sick sinus syndrome HTN (hypertension) Diabetes Hyperlipidemia Family History Father CVD (cardiovascular disease) Mother CVD (cardiovascular disease) Brother CVD (cardiovascular disease) Sister Diabetes Son Diabetes Surgical History Hx of cataract surgery Hx of mastectomy History of permanent cardiac pacemaker placement Hx of CABG Social History Household Members: Spouse Housing: House Do you presently have visiting nurse or other home services: No Alcohol intake: never Patient Tobacco Use Status: Former Tobacco user Tobacco use type: Cigarette Smoked in Last 30 Days: No Use of substances other than those prescribed or required for medical reasons: No Advance Directives: Yes Advance Directives on File: Yes Advance Directives Date on File: 03/17/21 Do you have a plan to hurt others: No Plan service: No Sexual orientation: Straight/Heterosexual Meds Allergies Allergy/AdvReac Type Severity Reaction Status Date / Time Penicillins Allergy Unknown Unknown Verified 01/31/24 23:13 metoprolol AdvReac Intermediate bradycardia Verified 01/31/24 23:13 timolol AdvReac Intermediate low bp Verified 01/31/24 23:13 tamsulosin [From Flomax] AdvReac Mild Diarrhea Verified 01/31/24 23:13 beta blockers AdvReac Hypotension Uncoded 01/31/24 23:13 Home Medications ?Medication ?Instructions ?Recorded ?Confirmed ?Last Taken ?Type bimatoprost 0.01 % eye drops 1 drp ophthalmic (eye) BEDTIME 05/28/20 12/04/23 07/04/22 History bupropion HCl 150 mg 24 hr tablet, 150 mg PO DAILY 05/25/21 12/04/23 07/05/22 History extended release cyanocobalamin (vitamin B-12) 1,000 mcg PO DAILY 06/09/22 12/04/23 07/05/22 History 1,000 mcg tablet (Vitamin B-12) folic acid 1 mg tablet 1 mg PO DAILY 06/09/22 12/04/23 07/05/22 History melatonin 10 mg tablet 1 tab PO BEDTIME PRN insomnia 07/05/22 12/04/23 07/04/22 History metformin 500 mg tablet,extended 500 mg PO DAILY 07/05/22 12/04/23 07/05/22 History release 24 hr Physical Exam Vital Signs and Narrative: Vital Signs: Last Vital Signs Temp 102.0 F H 02/01/24 02:00 Pulse 84 02/01/24 02:00 Resp 20 02/01/24 02:00 BP 156/85 H 02/01/24 02:00 Pulse Ox 88 L 02/01/24 02:00 O2 Del Method Room Air 02/01/24 02:00 BMI result Body Mass Index 25.7 Elderly male lying in bed in mild distress on supplemental oxygen Neck supple, no JVD Regular rate and rhythm, S1-S2 heard Regular breath sounds bilaterally, no wheezing or crackles appreciated Abdomen soft nontender, no guarding, no rigidity Patient is awake, alert and oriented to self, place, disoriented to time and person ; no focal motor deficit Psych: Normal mood No pedal edema Results Labs 01/31/24 23:53 01/31/24 23:52 Labs: Laboratory Results - last 24 hr 01/31/24 01/31/24 02/01/24 23:52 23:53 02:10 MCV 89.6 MCH 30.8 MCHC 34.4 RDW 13.8 Plt Count 230 MPV 9.3 L Immature Gran % (Auto) 0.4 Neut % (Auto) 88.9 H Lymph % (Auto) 3.3 L [place] % (Auto) 7.0 Eos % (Auto) 0.1 Baso % (Auto) 0.3 Lymph # (Auto) 0.4 L [place] # (Auto) 0.8 Eos # (Auto) 0.0 Baso # (Auto) 0.0 Abs Immat Gran (auto) 0.04 H Absolute Neuts (auto) 9.9 H Absolute Nucleated RBC 0.000 Nucleated RBC % (auto) 0.0 PT 13.9 H INR 1.1 Anion Gap 14 Estim Creat Clear Calc 50.6 Estimated GFR > 60 Random Glucose 251 H Lactic Acid 2.5 H* Lactic Acid F/U @ 2Hr 1.2 Calcium 10.4 H D Magnesium 1.6 Total Bilirubin 0.9 Direct Bilirubin 0.3 AST 28 ALT 24 Alkaline Phosphatase 81 Troponin I High Sens 23.0 D Total Protein 6.7 Albumin 4.0 Urine Color Yellow Urine Appearance Clear Urine pH 5.5 Ur Specific [place] 1.025 Urine Protein Trace Urine Glucose (UA) 100 H Urine Ketones Trace Urine Blood Negative Urine Nitrite Negative Ur Leukocyte Esterase Negative COVID-19 (ANDRE) Positive A COVID-19 Clin Com See Note Imaging Radiologist's Impressions: Impressions Chest X-Ray 02/01/24 00:47 IMPRESSION: Chronic blunting of the left costophrenic angle similar to previous. No acute cardiopulmonary process. Cervical Spine CT 02/01/24 00:48 IMPRESSION: CT HEAD: 1. No acute intracranial abnormality. 2. Age-related cerebral volume loss and mild chronic small vessel ischemic changes. 3. Pansinusitis. CT CERVICAL SPINE: 1. Straightening of the expected cervical spine curvature. 2. No acute cervical spine fracture or dislocation. 3. Multilevel cervical spondylosis and facet osteoarthritic changes as described above. Head CT 02/01/24 00:48 IMPRESSION: CT HEAD: 1. No acute intracranial abnormality. 2. Age-related cerebral volume loss and mild chronic small vessel ischemic changes. 3. Pansinusitis. CT CERVICAL SPINE: 1. Straightening of the expected cervical spine curvature. 2. No acute cervical spine fracture or dislocation. 3. Multilevel cervical spondylosis and facet osteoarthritic changes as described above. Assessment and Plan (1) Hypoxia: Status: Acute (2) COVID-19: Status: Acute Plan This is a 83-year-old male with pertinent history of coronary artery disease, hypertension, mixed hyperlipidemia, bipolar disorder, kxj-ksfvdqq-rsuvirbpf diabetes mellitus who was brought to the emergency department for evaluation of weakness and altered mentation. #. Acute hypoxic respiratory failure, viral sepsis and acute metabolic encephalopathy due to COVID-19 infection: Will admit patient with supplemental oxygen. Requiring 2 L oxygen in the ER, wean as tolerated. Initiating dexamethasone 6 mg daily. Continue isolation precautions. Monitor mentation #. Acute lactic acidosis due to hypoxia/viral sepsis #. Coronary artery disease: On high-intensity statin #. Hypertension: Continue home antihypertensives #. Ijk-vvnlkgd-qtdgtnfne diabetes mellitus with hyperglycemia: Initiating Accu-Cheks with sliding scale insulin Med rec pending DVT prophylaxis: Lovenox Full code. Discussed with patient's and daughter at bedside Admit as inpatient and will require two night minimum hospital stay for supplemental oxygen, monitoring mentation (as above), which is not possible in a lesser acute setting. Quality Stroke Does the patient have a stroke diagnosis?: No VTE Prior VTE?: No VTE Risk Level:: Medical - moderate - high VTE Device Contraindication: Treatment Not Indicated VTE Drug Contraindication: N/A - Med Ordered
--- NOTE | 2024-02-01 03:02 | MHC.EDTECH ---
Patient placed in hospital bed for comfort and safety,bed alarm on.vitals taken temp is 101.5 at this time,RN is aware
[2024-02-01] MEDS: Acetaminophen 1,000 MG/100 ML PIGGYBACK 400 MG IV (03:18)
[2024-02-01] MEDS: dexAMETHasone 6 MG TABLET PO (04:12)
--- NOTE | 2024-02-01 04:12 | MHC.EDTECH ---
Hourly rounds and vitals completed, temp is 100.9 at this time, patient was repositioned bed alarm on and call conti in reach
[2024-02-01 05:30] LABS: MANUAL DIFF FLAG NO
[2024-02-01 05:31] LABS: Basophils Percent Auto 0.3 % (0-2); Eosinophils Percent Auto 0.1 % (0-4); Hematocrit 33.7 % (42.0-52.0); Hemoglobin 11.3 g/dl (14.0-18.0); Imm Gran Abs Auto 0.04 X10*3/uL (0.00-0.03); Imm Gran Pct Auto 0.4 % (0.0-0.4); Lymphocytes Absolute Auto 0.6 X10*3/uL (1.2-4.9); Lymphocytes Percent Auto 6.3 % (20-40); Mean Corpuscular HGB Conc 33.5 g/dl (31.0-36.0); Mean Corpuscular Hemoglobin 30.5 pg (27.0-33.0); Mean Corpuscular Volume 91.1 fL (80.0-98.0); Mean Platelet Volume 9.3 fL (9.4-12.4); Monocytes Absolute Auto 0.5 X10*3/uL (0.1-1.2); Monocytes Percent Auto 5.1 % (2-11); Neutrophils Absolute Auto 8.5 x10*3/uL (2.0-8.3); Neutrophils Percent Auto 87.8 % (45-73); Platelet Count 201 X10*3/uL (160-400); Red Cell Distribution Width 13.8 % (11.0-16.0); White Blood Count 9.7 X10*3/uL (4.8-10.8)
[2024-02-01 05:45] LABS: Anion Gap 12 (12-20); Blood Urea Nitrogen 18 mg/dL (9-16); Calcium 9.6 mg/dL (8.4-10.2); Carbon Dioxide 21 mmol/L (22-29); Chloride 109 mmol/L (96-108); Creatinine Clr Calc Pharmacy 55.8; Estimated Glomerular Filt Rate > 60; Glucose Random 150 mg/dL (60-115); Potassium 4.3 mmol/L (3.3-5.1); Sodium 138 mmol/L (135-145)
--- NOTE | 2024-02-01 06:19 | PC.NURSE ---
erna condom cath replaced, linen changed, patient cleansed.
--- NOTE | 2024-02-01 06:30 | MHC.EDTECH ---
Hourly rounds and vitals completed,[place] Cath was off of patient ,emptied bag 300MLS of cloudy urine,patient was incont. of a large amount of urine,julieta-care given and linen changed, Applied a new [place] Cath. pt tolerated well,call conti in reach
[2024-02-01] MEDS: Insulin Lispro 100 UNIT/ML 3 ML VIAL SUBCUT ×3 (07:20→16:21)
[2024-02-01 07:21] LABS: Glucose, Whole Blood 153 mg/dL (60-115)
--- NOTE | 2024-02-01 07:51 | PC.NURSE ---
patient [place] cath slipping off, patient linens changed and pads changed. patient cleaned up, new gown. new [place] cath in place. patient boosted and repositioned in bed
[2024-02-01] MEDS: Furosemide 40 MG/4 ML VIAL IVPUSH (08:54)
[2024-02-01] MEDS: Enoxaparin Sodium 40 MG/0.4 ML SYRINGE SUBCUT (08:54)
--- NOTE | 2024-02-01 09:00 | PC.NURSE ---
patient medicated per AUG. crackle respirations, VSS
--- NOTE | 2024-02-01 10:41 | PC.NURSE ---
1400ml of urine emptied from urine bag, patient has [place] cath
--- NOTE | 2024-02-01 11:09 | PHA.MEDREC ---
Pharmacy Consult ? Medication Reconciliation Pharmacy has completed the medication reconciliation. Patient poor historian of medications, he was unable to list any meds. Pt answered yes, when asked about each medication on list. All other meds confirmed through claim history, except vitamin b-12 and folic acid.
[2024-02-01 11:40] LABS: Glucose, Whole Blood 200 mg/dL (60-115)
--- NOTE | 2024-02-01 11:45 | P.PNIM_ITS ---
Subjective Subjective Date of Service: 02/01/24 Interval History: lethargy Physical Exam 2 Vital Signs: Vital Signs: Last Vital Signs Temp 98.1 F 02/01/24 07:23 Pulse 78 02/01/24 07:23 Resp 14 02/01/24 07:23 BP 127/71 02/01/24 07:23 Pulse Ox 95 02/01/24 07:23 O2 Del Method Nasal Cannula 02/01/24 07:23 O2 Flow Rate 2 02/01/24 07:23 BMI result Body Mass Index 25.7 lethargic, ill appearing, minimaly participatory in conversation crackles, accessory muscles, no edema, abd soft distended Objective Data Active Medications Acetaminophen (Acetaminophen 325 Mg Tablet) 650 mg PO Q6H PRN PRN Reason: Pain, Mild (Pain Scale 1-3), fever or headache Atorvastatin Calcium (Atorvastatin Calcium 80 Mg Tablet) 80 mg PO DAILY [facility] Benzonatate (Benzonatate 100 Mg Capsule) 100 mg PO TID PRN PRN Reason: Cough Bupropion HCl (Bupropion Hcl Xl 150 Mg Tab.Er.24h) 150 mg PO DAILY [facility] Calcium Carbonate (Calcium Carbonate 750 Mg Tab.Chew) 750 mg PO Q4H PRN PRN Reason: Heartburn Cyanocobalamin (Cyanocobalamin (Vitamin B-12) 1,000 Mcg Tablet) 1,000 mcg PO DAILY [facility] Dexamethasone (Dexamethasone 6 Mg Tablet) 6 mg PO DAILY [facility] Last Admin: 02/01/24 04:12 Dose: 6 mg Documented By: JUAN JOSÉ Enoxaparin Sodium (Enoxaparin Sodium 40 Mg/0.4 Ml Syringe) 40 mg SUBCUT Q24H [facility] Last Admin: 02/01/24 08:54 Dose: 40 mg Documented By: TERESA Finasteride (Finasteride 5 Mg Tablet) 5 mg PO DAILY [facility] Folic Acid (Folic Acid 1 Mg Tablet) 1 mg PO DAILY [facility] Glucose (Glucose Gel 15 Gm Gel..Gram.) 15 gm PO Q15M PRN; Protocol PRN Reason: per Hypoglycemia Standing Ord. Dextrose (D10) 250 mls @ 750 mls/hr IV Q15M PRN; Protocol PRN Reason: per Hypoglycemia Standing Ord. Insulin Human Lispro (Insulin Lispro 100 Unit/Ml 3 Ml Vial) 0 unit SUBCUT QIDACHS [facility]; Protocol Last Admin: 02/01/24 07:20 Dose: 2 unit Documented By: TERESA Lamotrigine (Lamotrigine 25 Mg Tablet) 25 mg PO BID [facility] Magnesium Hydroxide (Milk Of Magnesia 30 Ml Oral.Susp) 30 ml PO DAILY PRN PRN Reason: Constipation Melatonin (Melatonin 3 Mg Tablet) 6 mg PO BEDTIME PRN PRN Reason: Insomnia Metoprolol Tartrate (Metoprolol Tartrate 12.5 Mg Halftab) 12.5 mg PO BID [facility]; Protocol Non-Formulary Medication (Bimatoprost) 1 drop EYE-BOTH BEDTIME [facility] Olanzapine (Olanzapine 10 Mg Tablet) 10 mg PO BEDTIME [facility] Ondansetron HCl (Ondansetron Hcl 4 Mg/2 Ml Vial) 4 mg IVPUSH Q8H PRN PRN Reason: Nausea and Vomiting Sodium Chloride (0.9 % Sodium Chloride Flush 3 Ml Syringe) 3 ml IVFLUSH QSHIFT [facility] Last Admin: 02/01/24 07:32 Dose: Not Given Documented By: TERESA Non-Admin Reason: See Note Vitamin D (Cholecalciferol (Vitamin D3) 25 Mcg Tablet) 50 mcg PO DAILY [facility] Labs 02/01/24 05:18 02/01/24 05:18 Labs: Laboratory Results - last 24 hr 01/31/24 01/31/24 02/01/24 23:52 23:53 02:10 MCV 89.6 MCH 30.8 MCHC 34.4 RDW 13.8 Plt Count 230 MPV 9.3 L Immature Gran % (Auto) 0.4 Neut % (Auto) 88.9 H Lymph % (Auto) 3.3 L [place] % (Auto) 7.0 Eos % (Auto) 0.1 Baso % (Auto) 0.3 Lymph # (Auto) 0.4 L [place] # (Auto) 0.8 Eos # (Auto) 0.0 Baso # (Auto) 0.0 Abs Immat Gran (auto) 0.04 H Absolute Neuts (auto) 9.9 H Absolute Nucleated RBC 0.000 Nucleated RBC % (auto) 0.0 PT 13.9 H INR 1.1 Anion Gap 14 Estim Creat Clear Calc 50.6 Estimated GFR > 60 POC Glucose Random Glucose 251 H Lactic Acid 2.5 H* Lactic Acid F/U @ 2Hr 1.2 Calcium 10.4 H D Magnesium 1.6 Total Bilirubin 0.9 Direct Bilirubin 0.3 AST 28 ALT 24 Alkaline Phosphatase 81 Troponin I High Sens 23.0 D Total Protein 6.7 Albumin 4.0 Urine Color Yellow Urine Appearance Clear Urine pH 5.5 Ur Specific [place] 1.025 Urine Protein Trace Urine Glucose (UA) 100 H Urine Ketones Trace Urine Blood Negative Urine Nitrite Negative Ur Leukocyte Esterase Negative COVID-19 (ANDRE) Positive A COVID-19 Clin Com See Note 02/01/24 02/01/24 02/01/24 05:18 07:15 11:34 MCV 91.1 MCH 30.5 MCHC 33.5 RDW 13.8 Plt Count 201 MPV 9.3 L Immature Gran % (Auto) 0.4 Neut % (Auto) 87.8 H Lymph % (Auto) 6.3 L [place] % (Auto) 5.1 Eos % (Auto) 0.1 Baso % (Auto) 0.3 Lymph # (Auto) 0.6 L [place] # (Auto) 0.5 Eos # (Auto) 0.0 Baso # (Auto) 0.0 Abs Immat Gran (auto) 0.04 H Absolute Neuts (auto) 8.5 H Absolute Nucleated RBC 0.000 Nucleated RBC % (auto) 0.0 PT INR Anion Gap 12 Estim Creat Clear Calc 55.8 Estimated GFR > 60 POC Glucose 153 H 200 H Random Glucose 150 H Lactic Acid Lactic Acid F/U @ 2Hr Calcium 9.6 D Magnesium Total Bilirubin Direct Bilirubin AST ALT Alkaline Phosphatase Troponin I High Sens Total Protein Albumin Urine Color Urine Appearance Urine pH Ur Specific [place] Urine Protein Urine Glucose (UA) Urine Ketones Urine Blood Urine Nitrite Ur Leukocyte Esterase COVID-19 (ANDRE) COVID-19 Clin Com Assessment and Plan (1) Hypoxia: Status: Acute Plan 83M PMH CAD, htn, hld, bipolar, dm, presented with lethargy Viral sepsis, acute metabolic encephalopathy, acute hypoxic respiratory failure due to COVID Continue Decadron, status post 1 dose of empiric IV lasix, wean O2 as tolerated cad statin bph normally on alfuzosin, does not tolerated tamsulosin continue proscar bipolar lamictal dm insulin dvt prophylaxis - lovenox full code reason for continued hospitalization:hypoxia Quality Stroke Does the patient have a stroke diagnosis?: No VTE Prior VTE?: No VTE Risk Level:: Medical - moderate - high VTE Device Contraindication: Treatment Not Indicated VTE Drug Contraindication: N/A - Med Ordered
--- NOTE | 2024-02-01 12:10 | PC.NURSE ---
Pt. medicated per AUG. Incontinence care provided.
--- NOTE | 2024-02-01 13:45 | MHC.SL.SWA ---
Speech Pathologist Impression: Risk of Aspiration Due to: Reduced Cognition Dysphasia Diet Status: Liquid Consistency and Strategies for Safe Swallow: Liquid Intake Recommendation: Thin Liquid Intake Strategies: Small Sips Solid Food Consistency: Dietary Recommendations: Regular Additional Modifications to Solid Foods: Oral Medication Intake: Whole with Liquid Please contact the pharmacy regarding appropriate crushable or liquid drug formulations that are available whenever modified delivery is recommended. Compensatory Strategies and Precautions to be Taken for Safe Swallow: Sitting Upright (90 deg) Liquids from Cup Liquids from Straw Small Bites and Sips Alternate Liquids/Solids Supervision While Eating and Drinking for Safe Swallow: Intermittent Supervision Foods to Avoid: Swallowing Recommended Treatments: Recommendation for Speech: NA:Typical Evaluation Comment: Patient presents as moderately confused, however all aspects of oral motor function and swallow presented as WFL. Patient noted to have upper airway noise, rhonchorous cough at baseline (not associated with swallow). No clinical signs of aspiration noted on this study. Recommend patient continue on current diet of REGULAR with THIN liquids, pills whole with liquid. RN/DIRECTOR FUNDS DEVELOPMENT should provide some intermittent supervision at meals to assure patient is oriented to meal, able to access foods and liquids and progressing safely with meal (due to level of confusion). No further PLASTIC MIXER service needed as patient is WFL and on least restrictive diet, will DC. Frequency/Duration: Date Range for Service Req: Timeline to reassess: Change Person Clinican/Clinical Fellow: No Supervisory Statement: I have reviewed and agree with the student/clinical fellow's documentation: N/A Speech Language Pathologist: Sharona Santoro M.A., [facility]PLASTIC MIXER
--- NOTE | 2024-02-01 13:52 | MHC.CM.PN ---
IMM 02/01/24 discussed with HCP / , Yady, pt. is lethargic at this time. He lives with in apt., services from [facility] 1 x per week for light cleaning. Pt uses a walker to ambulate, reports increases difficulty with walking over the past [address] Duran at [facility] is PCP. Pt's dtr works here with Dr. Buenrostro. Pt. was at [facility] a few years ago after he had a fractured knee cap. HCP would like him to go there if rec at [place]. DCP: home with services or STR. CM to follow and assist with plan.
[2024-02-01 16:08] LABS: Glucose, Whole Blood 176 mg/dL (60-115)
[2024-02-01 21:11] LABS: Glucose, Whole Blood 142 mg/dL (60-115)
[2024-02-01] MEDS: lamoTRIgine 25 MG TABLET PO (22:20)
[2024-02-01] MEDS: OLANZapine 10 MG TABLET PO (22:20)
[2024-02-01] MEDS: 0.9 % Sodium Chloride Flush 3 ML SYRINGE IVFLUSH (22:20)
[2024-02-01] MEDS: Metoprolol Tartrate 12.5 MG HALFTAB PO (22:20)
[2024-02-02 03:51] VITALS: BP 118/61; PULSE 68; RESP 20; TEMP 36.1; O2SAT 94
[2024-02-02] MEDS: Acetaminophen 325 MG TABLET 650 MG PO (05:56)
[2024-02-02 06:22] LABS: Hematocrit 34.6 % (42.0-52.0); Hemoglobin 11.7 g/dl (14.0-18.0); Mean Corpuscular HGB Conc 33.8 g/dl (31.0-36.0); Mean Corpuscular Hemoglobin 30.4 pg (27.0-33.0); Mean Corpuscular Volume 89.9 fL (80.0-98.0); Mean Platelet Volume 9.3 fL (9.4-12.4); Platelet Count 223 X10*3/uL (160-400); Red Blood Count 3.85 X10*6/uL (4.60-5.80); Red Cell Distribution Width 14.1 % (11.0-16.0); White Blood Count 10.6 X10*3/uL (4.8-10.8)
[2024-02-02 06:42] LABS: Anion Gap 14 (12-20); Blood Urea Nitrogen 16 mg/dL (9-16); Calcium 9.8 mg/dL (8.4-10.2); Carbon Dioxide 24 mmol/L (22-29); Chloride 108 mmol/L (96-108); Creatinine Clr Calc Pharmacy 62.9; Estimated Glomerular Filt Rate > 60; Glucose Fasting 118 mg/dL (60-99); Potassium 3.6 mmol/L (3.3-5.1); Sodium 142 mmol/L (135-145)
[2024-02-02 07:49] VITALS: BP 110/73; PULSE 70; RESP 20; TEMP 36.4; O2SAT 93
[2024-02-02 08:18] LABS: Glucose, Whole Blood 122 mg/dL (60-115)
--- NOTE | 2024-02-02 08:59 | HO.PM.IMPN ---
Subjective Subjective Date of Service: 02/02/24 Interval History: stronger today Physical Exam Vital Signs: Vital Signs: Last Vital Signs Temp 97.6 F 02/02/24 07:49 Pulse 70 02/02/24 07:49 Resp 20 02/02/24 07:49 BP 110/73 02/02/24 07:49 Pulse Ox 93 02/02/24 07:49 O2 Del Method Nasal Cannula 02/02/24 07:49 O2 Flow Rate 2 02/02/24 07:49 BMI result Body Mass Index 25.7 more alert, talking much clearer and coherently, still ill appearing, crackles Objective Data Active Medications Acetaminophen (Acetaminophen 325 Mg Tablet) 650 mg PO Q6H PRN PRN Reason: Pain, Mild (Pain Scale 1-3), fever or headache Last Admin: 02/02/24 05:56 Dose: 650 mg Documented By: FUENTES Atorvastatin Calcium (Atorvastatin Calcium 80 Mg Tablet) 80 mg PO DAILY [facility] Benzonatate (Benzonatate 100 Mg Capsule) 100 mg PO TID PRN PRN Reason: Cough Bupropion HCl (Bupropion Hcl Xl 150 Mg Tab.Er.24h) 150 mg PO DAILY [facility] Calcium Carbonate (Calcium Carbonate 750 Mg Tab.Chew) 750 mg PO Q4H PRN PRN Reason: Heartburn Cyanocobalamin (Cyanocobalamin (Vitamin B-12) 1,000 Mcg Tablet) 1,000 mcg PO DAILY [facility] Dexamethasone (Dexamethasone 6 Mg Tablet) 6 mg PO DAILY [facility] Last Admin: 02/01/24 04:12 Dose: 6 mg Documented By: JUAN JOSÉ Enoxaparin Sodium (Enoxaparin Sodium 40 Mg/0.4 Ml Syringe) 40 mg SUBCUT Q24H [facility] Last Admin: 02/01/24 08:54 Dose: 40 mg Documented By: TERESA Finasteride (Finasteride 5 Mg Tablet) 5 mg PO DAILY [facility] Folic Acid (Folic Acid 1 Mg Tablet) 1 mg PO DAILY [facility] Glucose (Glucose Gel 15 Gm Gel..Gram.) 15 gm PO Q15M PRN; Protocol PRN Reason: per Hypoglycemia Standing Ord. Dextrose (D10) 250 mls @ 750 mls/hr IV Q15M PRN; Protocol PRN Reason: per Hypoglycemia Standing Ord. Insulin Human Lispro (Insulin Lispro 100 Unit/Ml 3 Ml Vial) 0 unit SUBCUT QIDACHS [facility]; Protocol Last Admin: 02/02/24 08:45 Dose: Not Given Documented By: BLADE Non-Admin Reason: poc= 122 Lamotrigine (Lamotrigine 25 Mg Tablet) 25 mg PO BID [facility] Last Admin: 02/01/24 22:20 Dose: 25 mg Documented By: FUENTES Magnesium Hydroxide (Milk Of Magnesia 30 Ml Oral.Susp) 30 ml PO DAILY PRN PRN Reason: Constipation Melatonin (Melatonin 3 Mg Tablet) 6 mg PO BEDTIME PRN PRN Reason: Insomnia Metoprolol Tartrate (Metoprolol Tartrate 12.5 Mg Halftab) 12.5 mg PO BID [facility]; Protocol Last Admin: 02/01/24 22:20 Dose: 12.5 mg Documented By: FUENTES Non-Formulary Medication (Bimatoprost) 1 drop EYE-BOTH BEDTIME [facility] Olanzapine (Olanzapine 10 Mg Tablet) 10 mg PO BEDTIME [facility] Last Admin: 02/01/24 22:20 Dose: 10 mg Documented By: FUENTES Ondansetron HCl (Ondansetron Hcl 4 Mg/2 Ml Vial) 4 mg IVPUSH Q8H PRN PRN Reason: Nausea and Vomiting Sodium Chloride (0.9 % Sodium Chloride Flush 3 Ml Syringe) 3 ml IVFLUSH QSHIFT [facility] Last Admin: 02/01/24 22:20 Dose: 3 ml Documented By: FUENTES Vitamin D (Cholecalciferol (Vitamin D3) 25 Mcg Tablet) 50 mcg PO DAILY [facility] Labs 02/02/24 06:09 02/02/24 06:09 Labs: Laboratory Results - last 24 hr 02/01/24 02/01/24 02/01/24 11:34 15:57 20:58 MCV MCH MCHC RDW Plt Count MPV Absolute Nucleated RBC Nucleated RBC % (auto) Anion Gap Estim Creat Clear Calc Estimated GFR POC Glucose 200 H 176 H 142 H Fasting Glucose Calcium 02/02/24 02/02/24 06:09 07:53 MCV 89.9 MCH 30.4 MCHC 33.8 RDW 14.1 Plt Count 223 MPV 9.3 L Absolute Nucleated RBC 0.000 Nucleated RBC % (auto) 0.0 Anion Gap 14 Estim Creat Clear Calc 62.9 Estimated GFR > 60 POC Glucose 122 H Fasting Glucose 118 H Calcium 9.8 Microbiology Microbiology Results: Microbiology 01/31/24 23:52 Blood Culture - Preliminary Blood - Venous No growth after 24 hours. 01/31/24 23:52 Blood Culture - Preliminary Blood - Venous No growth after 24 hours. Assessment and Plan (1) Hypoxia: Status: Acute Plan 83M PMH CAD, htn, hld, bipolar, dm, presented with lethargy Viral sepsis, acute metabolic encephalopathy, acute hypoxic respiratory failure due to COVID Continue Decadron, wean O2 as tolerated overall improved today, still needing 2L cad statin bph normally on alfuzosin, does not tolerated tamsulosin continue proscar bipolar lamictal dm insulin dvt prophylaxis - lovenox full code reason for continued hospitalization:hypoxia Quality Stroke Does the patient have a stroke diagnosis?: No VTE Prior VTE?: No VTE Risk Level:: Medical - moderate - high VTE Device Contraindication: Treatment Not Indicated VTE Drug Contraindication: N/A - Med Ordered
[2024-02-02] MEDS: buPROPion HCl XL 150 MG TAB.ER.24H PO (09:23)
[2024-02-02] MEDS: Enoxaparin Sodium 40 MG/0.4 ML SYRINGE SUBCUT (09:23)
[2024-02-02] MEDS: Cholecalciferol (Vitamin D3) 25 MCG TABLET 50 MCG PO (09:23)
[2024-02-02] MEDS: lamoTRIgine 25 MG TABLET PO ×2 (09:23→21:00)
[2024-02-02] MEDS: Cyanocobalamin (Vitamin B-12) 1,000 MCG TABLET 1000 MCG PO (09:23)
[2024-02-02] MEDS: Metoprolol Tartrate 12.5 MG HALFTAB PO ×2 (09:23→21:00)
[2024-02-02] MEDS: Finasteride 5 MG TABLET PO (09:23)
[2024-02-02] MEDS: Atorvastatin Calcium 80 MG TABLET PO (09:23)
[2024-02-02] MEDS: Folic Acid 1 MG TABLET PO (09:24)
[2024-02-02] MEDS: dexAMETHasone 6 MG TABLET PO (09:24)
[2024-02-02] MEDS: 0.9 % Sodium Chloride Flush 3 ML SYRINGE IVFLUSH ×3 (09:24→21:00)
[2024-02-02 11:18] VITALS: BP 99/61; PULSE 55; RESP 20; TEMP 36.4; O2SAT 94
[2024-02-02 11:27] VITALS: O2SAT 98
[2024-02-02 11:41] LABS: Glucose, Whole Blood 160 mg/dL (60-115)
[2024-02-02] MEDS: Insulin Lispro 100 UNIT/ML 3 ML VIAL SUBCUT ×3 (12:18→21:01)
--- NOTE | 2024-02-02 15:28 | MHC.CM.PN ---
EMR REVIEWED, PT W/COVID/VIRAL SEPSIS AND AMS, PT CONT'S TO RECIEVE COVID TARGETED TX AND SUPPLEMENTAL O2, NO PLAN FOR DC AT THIS TIME, PT WILL LIKELY NEED PT FOR DISPO, CM WILL CONT TO FOLLOW DC NEEDS.
[2024-02-02 16:00] VITALS: BP 96/61; PULSE 69; RESP 20; TEMP 36.6; O2SAT 95
[2024-02-02 17:42] LABS: Glucose, Whole Blood 253 mg/dL (60-115)
[2024-02-02 20:00] VITALS: BP 115/67; PULSE 73; RESP 20; TEMP 36.7; O2SAT 92
[2024-02-02] MEDS: OLANZapine 10 MG TABLET PO (21:00)
[2024-02-02 21:12] LABS: Glucose, Whole Blood 246 mg/dL (60-115)
[2024-02-03] VITALS: BP 105/67; PULSE 68; RESP 20; TEMP 36.4; O2SAT 96
[2024-02-03 04:00] VITALS: BP 111/68; PULSE 66; RESP 20; TEMP 36.5; O2SAT 97
[2024-02-03 07:36] LABS: Hematocrit 34.3 % (42.0-52.0); Hemoglobin 11.5 g/dl (14.0-18.0); Mean Corpuscular HGB Conc 33.5 g/dl (31.0-36.0); Mean Corpuscular Hemoglobin 30.2 pg (27.0-33.0); Mean Platelet Volume 9.6 fL (9.4-12.4); Platelet Count 252 X10*3/uL (160-400); Red Blood Count 3.81 X10*6/uL (4.60-5.80); White Blood Count 8.7 X10*3/uL (4.8-10.8)
[2024-02-03 07:41] VITALS: BP 136/74; PULSE 64; RESP 16; TEMP 36.9; O2SAT 96
[2024-02-03 07:49] LABS: Anion Gap 13 (12-20); Blood Urea Nitrogen 22 mg/dL (9-16); Calcium 9.9 mg/dL (8.4-10.2); Carbon Dioxide 24 mmol/L (22-29); Chloride 109 mmol/L (96-108); Creatinine Clr Calc Pharmacy 65.2; Estimated Glomerular Filt Rate > 60; Glucose Fasting 143 mg/dL (60-99); Sodium 142 mmol/L (135-145)
[2024-02-03 08:32] LABS: Glucose, Whole Blood 147 mg/dL (60-115)
[2024-02-03] MEDS: Enoxaparin Sodium 40 MG/0.4 ML SYRINGE SUBCUT (09:01)
[2024-02-03] MEDS: Metoprolol Tartrate 12.5 MG HALFTAB PO ×2 (09:01→20:10)
[2024-02-03] MEDS: buPROPion HCl XL 150 MG TAB.ER.24H PO (09:01)
[2024-02-03] MEDS: Cholecalciferol (Vitamin D3) 25 MCG TABLET 50 MCG PO (09:02)
[2024-02-03] MEDS: Atorvastatin Calcium 80 MG TABLET PO (09:02)
[2024-02-03] MEDS: lamoTRIgine 25 MG TABLET PO ×2 (09:02→20:11)
[2024-02-03] MEDS: dexAMETHasone 6 MG TABLET PO (09:02)
[2024-02-03] MEDS: 0.9 % Sodium Chloride Flush 3 ML SYRINGE IVFLUSH ×3 (09:02→20:11)
[2024-02-03] MEDS: Finasteride 5 MG TABLET PO (09:02)
[2024-02-03] MEDS: Cyanocobalamin (Vitamin B-12) 1,000 MCG TABLET 1000 MCG PO (09:02)
[2024-02-03] MEDS: Folic Acid 1 MG TABLET PO (09:02)
--- NOTE | 2024-02-03 09:39 | HO.PM.IMPN ---
Subjective Subjective Date of Service: 02/03/24 Interval History: weakness Physical Exam Vital Signs: Vital Signs: Last Vital Signs Temp 98.4 F 02/03/24 07:41 Pulse 64 02/03/24 07:41 Resp 16 02/03/24 07:41 BP 136/74 02/03/24 07:41 Pulse Ox 96 02/03/24 07:41 O2 Del Method Nasal Cannula 02/03/24 07:41 O2 Flow Rate 3 02/03/24 07:41 BMI result Body Mass Index 25.7 lethargic, diffuse weakness, no focla deficit, lung crackles Objective Data Active Medications Acetaminophen (Acetaminophen 325 Mg Tablet) 650 mg PO Q6H PRN PRN Reason: Pain, Mild (Pain Scale 1-3), fever or headache Last Admin: 02/02/24 05:56 Dose: 650 mg Documented By: FUENTES Atorvastatin Calcium (Atorvastatin Calcium 80 Mg Tablet) 80 mg PO DAILY [facility] Last Admin: 02/03/24 09:02 Dose: 80 mg Documented By: BLADE Benzonatate (Benzonatate 100 Mg Capsule) 100 mg PO TID PRN PRN Reason: Cough Bupropion HCl (Bupropion Hcl Xl 150 Mg Tab.Er.24h) 150 mg PO DAILY [facility] Last Admin: 02/03/24 09:01 Dose: 150 mg Documented By: BLADE Calcium Carbonate (Calcium Carbonate 750 Mg Tab.Chew) 750 mg PO Q4H PRN PRN Reason: Heartburn Cyanocobalamin (Cyanocobalamin (Vitamin B-12) 1,000 Mcg Tablet) 1,000 mcg PO DAILY [facility] Last Admin: 02/03/24 09:02 Dose: 1,000 mcg Documented By: BLADE Dexamethasone (Dexamethasone 6 Mg Tablet) 6 mg PO DAILY [facility] Last Admin: 02/03/24 09:02 Dose: 6 mg Documented By: BLADE Enoxaparin Sodium (Enoxaparin Sodium 40 Mg/0.4 Ml Syringe) 40 mg SUBCUT Q24H [facility] Last Admin: 02/03/24 09:01 Dose: 40 mg Documented By: BLADE Finasteride (Finasteride 5 Mg Tablet) 5 mg PO DAILY [facility] Last Admin: 02/03/24 09:02 Dose: 5 mg Documented By: BLADE Folic Acid (Folic Acid 1 Mg Tablet) 1 mg PO DAILY [facility] Last Admin: 02/03/24 09:02 Dose: 1 mg Documented By: BLADE Glucose (Glucose Gel 15 Gm Gel..Gram.) 15 gm PO Q15M PRN; Protocol PRN Reason: per Hypoglycemia Standing Ord. Dextrose (D10) 250 mls @ 750 mls/hr IV Q15M PRN; Protocol PRN Reason: per Hypoglycemia Standing Ord. Insulin Human Lispro (Insulin Lispro 100 Unit/Ml 3 Ml Vial) 0 unit SUBCUT QIDACHS [facility]; Protocol Last Admin: 02/03/24 08:48 Dose: Not Given Documented By: BLADE Non-Admin Reason: poc= 147 Lamotrigine (Lamotrigine 25 Mg Tablet) 25 mg PO BID [facility] Last Admin: 02/03/24 09:02 Dose: 25 mg Documented By: BLADE Magnesium Hydroxide (Milk Of Magnesia 30 Ml Oral.Susp) 30 ml PO DAILY PRN PRN Reason: Constipation Melatonin (Melatonin 3 Mg Tablet) 6 mg PO BEDTIME PRN PRN Reason: Insomnia Metoprolol Tartrate (Metoprolol Tartrate 12.5 Mg Halftab) 12.5 mg PO BID [facility]; Protocol Last Admin: 02/03/24 09:01 Dose: 12.5 mg Documented By: BLADE Non-Formulary Medication (Bimatoprost) 1 drop EYE-BOTH BEDTIME [facility] Olanzapine (Olanzapine 10 Mg Tablet) 10 mg PO BEDTIME [facility] Last Admin: 02/02/24 21:00 Dose: 10 mg Documented By: SANTY Ondansetron HCl (Ondansetron Hcl 4 Mg/2 Ml Vial) 4 mg IVPUSH Q8H PRN PRN Reason: Nausea and Vomiting Sodium Chloride (0.9 % Sodium Chloride Flush 3 Ml Syringe) 3 ml IVFLUSH QSHIFT [facility] Last Admin: 02/03/24 09:02 Dose: 3 ml Documented By: BLADE Vitamin D (Cholecalciferol (Vitamin D3) 25 Mcg Tablet) 50 mcg PO DAILY [facility] Last Admin: 02/03/24 09:02 Dose: 50 mcg Documented By: BLADE Labs 02/03/24 06:00 02/03/24 06:00 Labs: Laboratory Results - last 24 hr 02/02/24 02/02/24 02/02/24 11:23 16:45 20:04 MCV MCH MCHC RDW Plt Count MPV Absolute Nucleated RBC Nucleated RBC % (auto) Anion Gap Estim Creat Clear Calc Estimated GFR POC Glucose 160 H 253 H 246 H Fasting Glucose Calcium 02/03/24 02/03/24 06:00 07:43 MCV 90.0 MCH 30.2 MCHC 33.5 RDW 14.0 Plt Count 252 MPV 9.6 Absolute Nucleated RBC 0.000 Nucleated RBC % (auto) 0.0 Anion Gap 13 Estim Creat Clear Calc 65.2 Estimated GFR > 60 POC Glucose 147 H Fasting Glucose 143 H Calcium 9.9 Microbiology Microbiology Results: Microbiology 01/31/24 23:52 Blood Culture - Preliminary Blood - Venous No growth after 48 hours. 01/31/24 23:52 Blood Culture - Preliminary Blood - Venous No growth after 48 hours. Assessment and Plan (1) Hypoxia: Status: Acute Plan 83M PMH CAD, htn, hld, bipolar, dm, presented with lethargy Viral sepsis, acute metabolic encephalopathy, acute hypoxic respiratory failure due to COVID Continue Decadron day 3, wean O2 as tolerated still needing 2L cad statin bph normally on alfuzosin, does not tolerated tamsulosin continue proscar bipolar lamictal dm insulin dvt prophylaxis - lovenox full code reason for continued hospitalization:hypoxia Quality Stroke Does the patient have a stroke diagnosis?: No VTE Prior VTE?: No VTE Risk Level:: Medical - moderate - high VTE Device Contraindication: Treatment Not Indicated VTE Drug Contraindication: N/A - Med Ordered
[2024-02-03 11:35] VITALS: BP 118/65; PULSE 74; RESP 18; TEMP 36.5; O2SAT 92
[2024-02-03 11:41] LABS: Glucose, Whole Blood 295 mg/dL (60-115)
[2024-02-03] MEDS: Insulin Lispro 100 UNIT/ML 3 ML VIAL SUBCUT ×3 (12:12→20:17)
[2024-02-03 15:07] VITALS: BP 116/68; PULSE 73; RESP 16; TEMP 36.8; O2SAT 97
[2024-02-03 16:36] LABS: Glucose, Whole Blood 325 mg/dL (60-115)
[2024-02-03 20:00] VITALS: BP 120/76; PULSE 66; RESP 20; TEMP 35.9; O2SAT 98
[2024-02-03] MEDS: Benzonatate 100 MG CAPSULE PO (20:11)
[2024-02-03] MEDS: OLANZapine 10 MG TABLET PO (20:11)
[2024-02-03 20:18] LABS: Glucose, Whole Blood 254 mg/dL (60-115)
[2024-02-04] VITALS (7 sets, daily range): BP systolic 106–153; BP diastolic 54–81; PULSE 54–69; RESP 17–20; TEMP 36.1–36.6; O2SAT 95–100
[2024-02-04] MEDS: Atorvastatin Calcium 80 MG TABLET PO (07:26)
[2024-02-04] MEDS: Cyanocobalamin (Vitamin B-12) 1,000 MCG TABLET 1000 MCG PO (07:26)
[2024-02-04] MEDS: buPROPion HCl XL 150 MG TAB.ER.24H PO (07:26)
[2024-02-04] MEDS: dexAMETHasone 6 MG TABLET PO (07:27)
[2024-02-04] MEDS: Cholecalciferol (Vitamin D3) 25 MCG TABLET 50 MCG PO (07:27)
[2024-02-04] MEDS: Finasteride 5 MG TABLET PO (07:27)
[2024-02-04] MEDS: Folic Acid 1 MG TABLET PO (07:27)
[2024-02-04] MEDS: 0.9 % Sodium Chloride Flush 3 ML SYRINGE IVFLUSH ×3 (07:27→20:18)
[2024-02-04] MEDS: Metoprolol Tartrate 12.5 MG HALFTAB PO ×2 (07:27→20:17)
[2024-02-04] MEDS: lamoTRIgine 25 MG TABLET PO ×2 (07:27→20:17)
[2024-02-04] MEDS: Enoxaparin Sodium 40 MG/0.4 ML SYRINGE SUBCUT (07:27)
[2024-02-04 07:51] LABS: Glucose, Whole Blood 104 mg/dL (60-115)
[2024-02-04 11:36] LABS: Glucose, Whole Blood 201 mg/dL (60-115)
[2024-02-04] MEDS: Milk of Magnesia 30 ML ORAL.SUSP PO (12:00)
[2024-02-04] MEDS: Insulin Lispro 100 UNIT/ML 3 ML VIAL SUBCUT ×3 (12:00→20:18)
--- NOTE | 2024-02-04 13:53 | HO.PM.IMPN ---
Subjective Subjective Date of Service: 02/05/24 Interval History: Continued confusion, unable to speak coherently Physical Exam Vital Signs: Vital Signs: Last Vital Signs Temp 96.9 F 02/04/24 11:06 Pulse 64 02/04/24 11:06 Resp 20 02/04/24 11:06 BP 108/66 02/04/24 11:06 Pulse Ox 95 02/04/24 11:06 O2 Del Method Nasal Cannula 02/04/24 11:06 O2 Flow Rate 4 02/04/24 11:06 BMI result Body Mass Index 25.7 General: AOx1, pleasantly confused, in no acute distress Resp: Significant, diffuse bilateral crackles CVS: S1, S2, RRR GI: +BS, NT, no distention Skin: Warm, dry Neuro: Cranial nerves II-XII grossly intact bilaterally. Motor grossly intact bilaterally Extremities: No edema Objective Data Active Medications Acetaminophen (Acetaminophen 325 Mg Tablet) 650 mg PO Q6H PRN PRN Reason: Pain, Mild (Pain Scale 1-3), fever or headache Last Admin: 02/02/24 05:56 Dose: 650 mg Documented By: FUENTES Atorvastatin Calcium (Atorvastatin Calcium 80 Mg Tablet) 80 mg PO DAILY [facility] Last Admin: 02/04/24 07:26 Dose: 80 mg Documented By: BLADE Benzonatate (Benzonatate 100 Mg Capsule) 100 mg PO TID PRN PRN Reason: Cough Last Admin: 02/03/24 20:11 Dose: 100 mg Documented By: BRIGITTE Bupropion HCl (Bupropion Hcl Xl 150 Mg Tab.Er.24h) 150 mg PO DAILY [facility] Last Admin: 02/04/24 07:26 Dose: 150 mg Documented By: BLADE Calcium Carbonate (Calcium Carbonate 750 Mg Tab.Chew) 750 mg PO Q4H PRN PRN Reason: Heartburn Cyanocobalamin (Cyanocobalamin (Vitamin B-12) 1,000 Mcg Tablet) 1,000 mcg PO DAILY [facility] Last Admin: 02/04/24 07:26 Dose: 1,000 mcg Documented By: BLADE Dexamethasone (Dexamethasone 6 Mg Tablet) 6 mg PO DAILY [facility] Last Admin: 02/04/24 07:27 Dose: 6 mg Documented By: BLADE Enoxaparin Sodium (Enoxaparin Sodium 40 Mg/0.4 Ml Syringe) 40 mg SUBCUT Q24H [facility] Last Admin: 02/04/24 07:27 Dose: 40 mg Documented By: BLADE Finasteride (Finasteride 5 Mg Tablet) 5 mg PO DAILY [facility] Last Admin: 02/04/24 07:27 Dose: 5 mg Documented By: BLADE Folic Acid (Folic Acid 1 Mg Tablet) 1 mg PO DAILY [facility] Last Admin: 02/04/24 07:27 Dose: 1 mg Documented By: BLADE Glucose (Glucose Gel 15 Gm Gel..Gram.) 15 gm PO Q15M PRN; Protocol PRN Reason: per Hypoglycemia Standing Ord. Dextrose (D10) 250 mls @ 750 mls/hr IV Q15M PRN; Protocol PRN Reason: per Hypoglycemia Standing Ord. Insulin Human Lispro (Insulin Lispro 100 Unit/Ml 3 Ml Vial) 0 unit SUBCUT QIDACHS [facility]; Protocol Last Admin: 02/04/24 12:00 Dose: 4 unit Documented By: BLADE Lamotrigine (Lamotrigine 25 Mg Tablet) 25 mg PO BID [facility] Last Admin: 02/04/24 07:27 Dose: 25 mg Documented By: BLADE Magnesium Hydroxide (Milk Of Magnesia 30 Ml Oral.Susp) 30 ml PO DAILY PRN PRN Reason: Constipation Last Admin: 02/04/24 12:00 Dose: 30 ml Documented By: BLADE Melatonin (Melatonin 3 Mg Tablet) 6 mg PO BEDTIME PRN PRN Reason: Insomnia Metoprolol Tartrate (Metoprolol Tartrate 12.5 Mg Halftab) 12.5 mg PO BID [facility]; Protocol Last Admin: 02/04/24 07:27 Dose: 12.5 mg Documented By: BLADE Non-Formulary Medication (Bimatoprost) 1 drop EYE-BOTH BEDTIME [facility] Olanzapine (Olanzapine 10 Mg Tablet) 10 mg PO BEDTIME [facility] Last Admin: 02/03/24 20:11 Dose: 10 mg Documented By: BRIGITTE Ondansetron HCl (Ondansetron Hcl 4 Mg/2 Ml Vial) 4 mg IVPUSH Q8H PRN PRN Reason: Nausea and Vomiting Sodium Chloride (0.9 % Sodium Chloride Flush 3 Ml Syringe) 3 ml IVFLUSH QSHIFT [facility] Last Admin: 02/04/24 07:27 Dose: 3 ml Documented By: BLADE Vitamin D (Cholecalciferol (Vitamin D3) 25 Mcg Tablet) 50 mcg PO DAILY [facility] Last Admin: 02/04/24 07:27 Dose: 50 mcg Documented By: BLADE Labs 02/03/24 06:00 02/03/24 06:00 Labs: Laboratory Results - last 24 hr 02/03/24 02/03/24 02/04/24 16:04 20:05 07:32 POC Glucose 325 H 254 H 104 02/04/24 11:28 POC Glucose 201 H Assessment and Plan (1) COVID-19: Status: Acute (2) Weakness: Status: Acute (3) Hypoxia: Status: Acute Plan Patient is a 83-year-old male with pertinent history of coronary artery disease, hypertension, mixed hyperlipidemia, bipolar disorder, xha-oljnzkx-ypiwrsiwq diabetes mellitus who was brought to the emergency department for evaluation of weakness and altered mentation. Was found to be hypoxic and COVID positive. Acute metabolic encephalopathy and acute hypoxic respiratory failure in the setting of COVID with viral sepsis Continue Decadron day 4 Patient continues to need 2 L NC Titrate supplemental O2 >92, wean as tolerated Monitor mentation PT consult Aal-ciaugpq-tocyqyvhg type 2 diabetes Hold metformin Sliding-scale insulin, diabetic diet CAD/HLD Continue statin HTN Continue metoprolol GERD Continue PPI Mood disorder Continue mood stabilizers Full Code Attending:?Dr. Badillo DVT Prophylaxis: Lovenox Pt will require continued hospitalization for for continued SOB, hypoxia, and confusion. Patient will also need PT consultation for recommendations for safe disposition home. Quality Stroke Does the patient have a stroke diagnosis?: No VTE Prior VTE?: No VTE Risk Level:: Medical - moderate - high VTE Device Contraindication: Treatment Not Indicated VTE Drug Contraindication: N/A - Med Ordered
[2024-02-04 16:13] LABS: Glucose, Whole Blood 274 mg/dL (60-115)
[2024-02-04 20:09] LABS: Glucose, Whole Blood 284 mg/dL (60-115)
[2024-02-04] MEDS: OLANZapine 10 MG TABLET PO (20:17)
[2024-02-05 03:11] VITALS: BP 120/69; PULSE 54; RESP 18; TEMP 37; O2SAT 99
[2024-02-05 07:31] VITALS: BP 129/78; PULSE 54; RESP 20; TEMP 36.2; O2SAT 97
[2024-02-05] MEDS: Folic Acid 1 MG TABLET PO (08:10)
[2024-02-05] MEDS: Metoprolol Tartrate 12.5 MG HALFTAB PO ×2 (08:10→21:42)
[2024-02-05] MEDS: lamoTRIgine 25 MG TABLET PO ×2 (08:10→21:43)
[2024-02-05] MEDS: Finasteride 5 MG TABLET PO (08:10)
[2024-02-05] MEDS: Cyanocobalamin (Vitamin B-12) 1,000 MCG TABLET 1000 MCG PO (08:10)
[2024-02-05] MEDS: buPROPion HCl XL 150 MG TAB.ER.24H PO (08:10)
[2024-02-05] MEDS: dexAMETHasone 6 MG TABLET PO (08:10)
[2024-02-05] MEDS: Atorvastatin Calcium 80 MG TABLET PO (08:10)
[2024-02-05] MEDS: Cholecalciferol (Vitamin D3) 25 MCG TABLET 50 MCG PO (08:10)
[2024-02-05] MEDS: 0.9 % Sodium Chloride Flush 3 ML SYRINGE IVFLUSH ×3 (08:11→21:43)
[2024-02-05] MEDS: Enoxaparin Sodium 40 MG/0.4 ML SYRINGE SUBCUT (08:11)
[2024-02-05] MEDS: Insulin Lispro 100 UNIT/ML 3 ML VIAL SUBCUT ×4 (08:11→21:43)
[2024-02-05 08:35] LABS: Glucose, Whole Blood 172 mg/dL (60-115)
[2024-02-05 11:05] LABS: Glucose, Whole Blood 267 mg/dL (60-115)
[2024-02-05 11:24] VITALS: BP 114/64; PULSE 60; RESP 20; TEMP 36.3; O2SAT 99
--- NOTE | 2024-02-05 12:52 | MHC.CM.PN ---
EMR REVIEWED, PER HOSPITALIST PT IMPROVING AND WILL LIKELY NEED STR, P.T. EVAL ORDERED AND CM WILL FOLLOW FOR RECOMMENDATIONS.
[2024-02-05 13:31] VITALS: BP 114/64; PULSE 60; O2SAT 99
[2024-02-05 15:31] VITALS: BP 108/64; PULSE 60; RESP 20; TEMP 36.4; O2SAT 96
[2024-02-05 16:05] LABS: Glucose, Whole Blood 354 mg/dL (60-115)
--- NOTE | 2024-02-05 18:03 | P.PNIM_ITS ---
Subjective Subjective Date of Service: 02/05/24 Interval History: Patient seen and examined in his room Patient noted to have improved mentation, speaking coherently States feels better with improved breathing Continued SOB, cough Denies chest pain/pressure, palpitations Physical Exam 2 Vital Signs: Vital Signs: Last Vital Signs Temp 97.6 F 02/05/24 15:31 Pulse 60 02/05/24 15:31 Resp 20 02/05/24 15:31 BP 108/64 02/05/24 15:31 Pulse Ox 96 02/05/24 15:31 O2 Del Method Nasal Cannula 02/05/24 15:31 O2 Flow Rate 2 02/05/24 15:31 BMI result Body Mass Index 25.7 General: AOx4, no acute distress Resp: Diffuse wheezing bilaterally CVS: S1, S2, RRR GI: +BS, NT, no distention Skin: Warm, dry Neuro: Cranial nerves II-XII grossly intact bilaterally. Motor grossly intact bilaterally Extremities: No edema Psych: Appropriate affect Objective Data Active Medications Acetaminophen (Acetaminophen 325 Mg Tablet) 650 mg PO Q6H PRN PRN Reason: Pain, Mild (Pain Scale 1-3), fever or headache Last Admin: 02/02/24 05:56 Dose: 650 mg Documented By: FUENTES Atorvastatin Calcium (Atorvastatin Calcium 80 Mg Tablet) 80 mg PO DAILY [facility] Last Admin: 02/05/24 08:10 Dose: 80 mg Documented By: BLADE Benzonatate (Benzonatate 100 Mg Capsule) 100 mg PO TID PRN PRN Reason: Cough Last Admin: 02/03/24 20:11 Dose: 100 mg Documented By: BRIGITTE Bupropion HCl (Bupropion Hcl Xl 150 Mg Tab.Er.24h) 150 mg PO DAILY [facility] Last Admin: 02/05/24 08:10 Dose: 150 mg Documented By: BLADE Calcium Carbonate (Calcium Carbonate 750 Mg Tab.Chew) 750 mg PO Q4H PRN PRN Reason: Heartburn Cyanocobalamin (Cyanocobalamin (Vitamin B-12) 1,000 Mcg Tablet) 1,000 mcg PO DAILY [facility] Last Admin: 02/05/24 08:10 Dose: 1,000 mcg Documented By: BLADE Dexamethasone (Dexamethasone 6 Mg Tablet) 6 mg PO DAILY [facility] Last Admin: 02/05/24 08:10 Dose: 6 mg Documented By: BLADE Enoxaparin Sodium (Enoxaparin Sodium 40 Mg/0.4 Ml Syringe) 40 mg SUBCUT Q24H [facility] Last Admin: 02/05/24 08:11 Dose: 40 mg Documented By: BLADE Finasteride (Finasteride 5 Mg Tablet) 5 mg PO DAILY [facility] Last Admin: 02/05/24 08:10 Dose: 5 mg Documented By: BLADE Folic Acid (Folic Acid 1 Mg Tablet) 1 mg PO DAILY [facility] Last Admin: 02/05/24 08:10 Dose: 1 mg Documented By: BLADE Glucose (Glucose Gel 15 Gm Gel..Gram.) 15 gm PO Q15M PRN; Protocol PRN Reason: per Hypoglycemia Standing Ord. Dextrose (D10) 250 mls @ 750 mls/hr IV Q15M PRN; Protocol PRN Reason: per Hypoglycemia Standing Ord. Insulin Human Lispro (Insulin Lispro 100 Unit/Ml 3 Ml Vial) 0 unit SUBCUT QIDACHS [facility]; Protocol Last Admin: 02/05/24 16:37 Dose: 10 unit Documented By: BLADE Lamotrigine (Lamotrigine 25 Mg Tablet) 25 mg PO BID [facility] Last Admin: 02/05/24 08:10 Dose: 25 mg Documented By: BLADE Magnesium Hydroxide (Milk Of Magnesia 30 Ml Oral.Susp) 30 ml PO DAILY PRN PRN Reason: Constipation Last Admin: 02/04/24 12:00 Dose: 30 ml Documented By: BLADE Melatonin (Melatonin 3 Mg Tablet) 6 mg PO BEDTIME PRN PRN Reason: Insomnia Metoprolol Tartrate (Metoprolol Tartrate 12.5 Mg Halftab) 12.5 mg PO BID [facility]; Protocol Last Admin: 02/05/24 08:10 Dose: 12.5 mg Documented By: BLADE Non-Formulary Medication (Bimatoprost) 1 drop EYE-BOTH BEDTIME [facility] Olanzapine (Olanzapine 10 Mg Tablet) 10 mg PO BEDTIME [facility] Last Admin: 02/04/24 20:17 Dose: 10 mg Documented By: SCARLETT Ondansetron HCl (Ondansetron Hcl 4 Mg/2 Ml Vial) 4 mg IVPUSH Q8H PRN PRN Reason: Nausea and Vomiting Sodium Chloride (0.9 % Sodium Chloride Flush 3 Ml Syringe) 3 ml IVFLUSH QSHIFT [facility] Last Admin: 02/05/24 16:38 Dose: 3 ml Documented By: BLADE Vitamin D (Cholecalciferol (Vitamin D3) 25 Mcg Tablet) 50 mcg PO DAILY [facility] Last Admin: 02/05/24 08:10 Dose: 50 mcg Documented By: BLADE Labs 02/03/24 06:00 02/03/24 06:00 Labs: Laboratory Results - last 24 hr 02/04/24 02/05/24 02/05/24 20:02 07:28 10:59 POC Glucose 284 H 172 H 267 H 02/05/24 15:22 POC Glucose 354 H* Assessment and Plan (1) Hypoxia: Status: Acute (2) COVID-19: Status: Acute Plan Patient is a 83-year-old male with pertinent history of coronary artery disease, hypertension, mixed hyperlipidemia, bipolar disorder, aux-xyylwtl-ktdphfvuf diabetes mellitus who was brought to the emergency department for evaluation of weakness and altered mentation. Was found to be hypoxic and COVID positive. Acute metabolic encephalopathy and acute hypoxic respiratory failure in the setting of COVID with viral sepsis Continue Decadron day 5 Patient continues to need 2L NC Titrate supplemental O2 >92, wean as tolerated Mentation improved, now AOx4 PT consult recommends STR at discharge Dbc-lqdyzyl-jadybgbcq type 2 diabetes Hold metformin Sliding-scale insulin, diabetic diet CAD/HLD Continue statin HTN Continue metoprolol GERD Continue PPI Mood disorder Continue mood stabilizers Full Code Attending:?Dr. Badillo DVT Prophylaxis: Lovenox Pt will require continued hospitalization for for continued SOB, hypoxia, and STR placement once medically cleared. Quality Stroke Does the patient have a stroke diagnosis?: No VTE Prior VTE?: No VTE Risk Level:: Medical - moderate - high VTE Device Contraindication: Treatment Not Indicated VTE Drug Contraindication: N/A - Med Ordered
[2024-02-05 20:00] VITALS: BP 136/76; PULSE 56; RESP 20; TEMP 36.2; O2SAT 95
[2024-02-05 21:01] LABS: Glucose, Whole Blood 310 mg/dL (60-115)
[2024-02-05] MEDS: OLANZapine 10 MG TABLET PO (21:42)
[2024-02-06] VITALS (8 sets, daily range): BP systolic 117–154; BP diastolic 61–80; PULSE 54–96; RESP 20; TEMP 36.1–36.8; O2SAT 93–97
[2024-02-06 07:53] LABS: Glucose, Whole Blood 143 mg/dL (60-115)
[2024-02-06] MEDS: Enoxaparin Sodium 40 MG/0.4 ML SYRINGE SUBCUT (10:48)
[2024-02-06] MEDS: lamoTRIgine 25 MG TABLET PO ×2 (10:49→20:50)
[2024-02-06] MEDS: Atorvastatin Calcium 80 MG TABLET PO (10:49)
[2024-02-06] MEDS: Folic Acid 1 MG TABLET PO (10:49)
[2024-02-06] MEDS: dexAMETHasone 6 MG TABLET PO (10:49)
[2024-02-06] MEDS: Cholecalciferol (Vitamin D3) 25 MCG TABLET 50 MCG PO (10:49)
[2024-02-06] MEDS: buPROPion HCl XL 150 MG TAB.ER.24H PO (10:49)
[2024-02-06] MEDS: Finasteride 5 MG TABLET PO (10:49)
[2024-02-06] MEDS: Cyanocobalamin (Vitamin B-12) 1,000 MCG TABLET 1000 MCG PO (10:49)
[2024-02-06] MEDS: Metoprolol Tartrate 12.5 MG HALFTAB PO ×2 (10:49→20:50)
[2024-02-06] MEDS: 0.9 % Sodium Chloride Flush 3 ML SYRINGE IVFLUSH ×2 (10:50→18:03)
[2024-02-06 12:07] LABS: Glucose, Whole Blood 234 mg/dL (60-115)
[2024-02-06 15:56] LABS: Glucose, Whole Blood 311 mg/dL (60-115)
--- NOTE | 2024-02-06 16:41 | P.PNIM_ITS ---
Subjective Subjective Date of Service: 02/06/24 Interval History: acute hypoxic respiratory failure in the setting of COVID with viral sepsis Review of Systems sob improving trial taper oxygen no fevers Physical Exam 2 Vital Signs: Vital Signs: Last Vital Signs Temp 97.4 F 02/06/24 16:00 Pulse 56 02/06/24 16:00 Resp 20 02/06/24 16:00 BP 138/74 02/06/24 16:00 Pulse Ox 96 02/06/24 16:00 O2 Del Method Nasal Cannula 02/06/24 16:00 O2 Flow Rate 2 02/06/24 16:00 BMI result Body Mass Index 25.7 General: AOx4, no acute distress Resp: air entry improving ,has b/l some wheezes CVS: S1, S2, RRR GI: +BS, NT, no distention Skin: Warm, dry Neuro: Cranial nerves II-XII grossly intact bilaterally. Motor grossly intact bilaterally Extremities: No edema Psych: Appropriate affect Objective Data Active Medications Acetaminophen (Acetaminophen 325 Mg Tablet) 650 mg PO Q6H PRN PRN Reason: Pain, Mild (Pain Scale 1-3), fever or headache Last Admin: 02/02/24 05:56 Dose: 650 mg Documented By: FUENTES Atorvastatin Calcium (Atorvastatin Calcium 80 Mg Tablet) 80 mg PO DAILY [facility] Last Admin: 02/06/24 10:49 Dose: 80 mg Documented By: AZAM Benzonatate (Benzonatate 100 Mg Capsule) 100 mg PO TID PRN PRN Reason: Cough Last Admin: 02/03/24 20:11 Dose: 100 mg Documented By: BRIGITTE Bupropion HCl (Bupropion Hcl Xl 150 Mg Tab.Er.24h) 150 mg PO DAILY [facility] Last Admin: 02/06/24 10:49 Dose: 150 mg Documented By: AZAM Calcium Carbonate (Calcium Carbonate 750 Mg Tab.Chew) 750 mg PO Q4H PRN PRN Reason: Heartburn Cyanocobalamin (Cyanocobalamin (Vitamin B-12) 1,000 Mcg Tablet) 1,000 mcg PO DAILY [facility] Last Admin: 02/06/24 10:49 Dose: 1,000 mcg Documented By: AZAM Dexamethasone (Dexamethasone 6 Mg Tablet) 6 mg PO DAILY [facility] Last Admin: 02/06/24 10:49 Dose: 6 mg Documented By: AZAM Enoxaparin Sodium (Enoxaparin Sodium 40 Mg/0.4 Ml Syringe) 40 mg SUBCUT Q24H [facility] Last Admin: 02/06/24 10:48 Dose: 40 mg Documented By: AZAM Finasteride (Finasteride 5 Mg Tablet) 5 mg PO DAILY [facility] Last Admin: 02/06/24 10:49 Dose: 5 mg Documented By: AZAM Folic Acid (Folic Acid 1 Mg Tablet) 1 mg PO DAILY [facility] Last Admin: 02/06/24 10:49 Dose: 1 mg Documented By: AZAM Glucose (Glucose Gel 15 Gm Gel..Gram.) 15 gm PO Q15M PRN; Protocol PRN Reason: per Hypoglycemia Standing Ord. Dextrose (D10) 250 mls @ 750 mls/hr IV Q15M PRN; Protocol PRN Reason: per Hypoglycemia Standing Ord. Insulin Human Lispro (Insulin Lispro 100 Unit/Ml 3 Ml Vial) 0 unit SUBCUT QIDACHS [facility]; Protocol Last Admin: 02/06/24 14:38 Dose: Not Given Documented By: AZAM Non-Admin Reason: Patient Refused Lamotrigine (Lamotrigine 25 Mg Tablet) 25 mg PO BID [facility] Last Admin: 02/06/24 10:49 Dose: 25 mg Documented By: AZAM Magnesium Hydroxide (Milk Of Magnesia 30 Ml Oral.Susp) 30 ml PO DAILY PRN PRN Reason: Constipation Last Admin: 02/04/24 12:00 Dose: 30 ml Documented By: BLADE Melatonin (Melatonin 3 Mg Tablet) 6 mg PO BEDTIME PRN PRN Reason: Insomnia Metoprolol Tartrate (Metoprolol Tartrate 12.5 Mg Halftab) 12.5 mg PO BID [facility]; Protocol Last Admin: 02/06/24 10:49 Dose: 12.5 mg Documented By: AZAM Non-Formulary Medication (Bimatoprost) 1 drop EYE-BOTH BEDTIME [facility] Olanzapine (Olanzapine 10 Mg Tablet) 10 mg PO BEDTIME [facility] Last Admin: 02/05/24 21:42 Dose: 10 mg Documented By: SCARLETT Ondansetron HCl (Ondansetron Hcl 4 Mg/2 Ml Vial) 4 mg IVPUSH Q8H PRN PRN Reason: Nausea and Vomiting Sodium Chloride (0.9 % Sodium Chloride Flush 3 Ml Syringe) 3 ml IVFLUSH QSHIFT [facility] Last Admin: 02/06/24 10:50 Dose: 3 ml Documented By: AZAM Vitamin D (Cholecalciferol (Vitamin D3) 25 Mcg Tablet) 50 mcg PO DAILY [facility] Last Admin: 02/06/24 10:49 Dose: 50 mcg Documented By: AZAM Labs 02/03/24 06:00 02/03/24 06:00 Labs: Laboratory Results - last 24 hr 02/05/24 02/06/24 02/06/24 20:44 07:31 11:36 POC Glucose 310 H 143 H 234 H 02/06/24 15:43 POC Glucose 311 H Microbiology Microbiology Results: Microbiology 01/31/24 23:52 Blood Culture - Final Blood - Venous No growth after 5 days. 01/31/24 23:52 Blood Culture - Final Blood - Venous No growth after 5 days. Assessment and Plan (1) Hypoxia: Status: Acute (2) COVID-19: Status: Acute Assessment and Plan: 83-year-old male with pertinent history of coronary artery disease, hypertension, mixed hyperlipidemia, bipolar disorder, trp-ypbfxmz-unetaknmw diabetes mellitus who was brought to the emergency department for evaluation of weakness and altered mentation. Was found to be hypoxic and COVID positive. Acute metabolic encephalopathy and acute hypoxic respiratory failure in the setting of COVID with viral sepsis Continue Decadron day 5 Patient continues to need 2L NC Titrate supplemental O2 >92, wean as tolerated Mentation improved, now AOx4 PT consult recommends STR at discharge Vhf-lrhxftp-amewtvfdn type 2 diabetes Hold metformin Sliding-scale insulin, diabetic diet CAD/HLD Continue statin HTN Continue metoprolol GERD Continue PPI Mood disorder Continue mood stabilizers Full Code DVT Prophylaxis: Lovenox Pt will require continued hospitalization for for continued SOB, hypoxia, and STR placement once medically cleared. Quality Stroke Does the patient have a stroke diagnosis?: No VTE Prior VTE?: No VTE Risk Level:: Medical - moderate - high VTE Device Contraindication: Treatment Not Indicated VTE Drug Contraindication: N/A - Med Ordered
[2024-02-06] MEDS: Insulin Lispro 100 UNIT/ML 3 ML VIAL SUBCUT ×2 (18:03→20:52)
[2024-02-06] MEDS: OLANZapine 10 MG TABLET PO (20:50)
[2024-02-06 20:54] LABS: Glucose, Whole Blood 340 mg/dL (60-115)
[2024-02-07] VITALS (7 sets, daily range): BP systolic 117–161; BP diastolic 65–85; PULSE 54–67; RESP 17–20; TEMP 36.1–36.4; O2SAT 90–98
[2024-02-07] MEDS: 0.9 % Sodium Chloride Flush 3 ML SYRINGE IVFLUSH ×4 (00:30→22:17)
[2024-02-07 07:52] LABS: Glucose, Whole Blood 277 mg/dL (60-115)
[2024-02-07] MEDS: Metoprolol Tartrate 12.5 MG HALFTAB PO (10:23)
[2024-02-07] MEDS: dexAMETHasone 6 MG TABLET PO (10:23)
[2024-02-07] MEDS: lamoTRIgine 25 MG TABLET PO ×2 (10:23→22:15)
[2024-02-07] MEDS: Cyanocobalamin (Vitamin B-12) 1,000 MCG TABLET 1000 MCG PO (10:23)
[2024-02-07] MEDS: Cholecalciferol (Vitamin D3) 25 MCG TABLET 50 MCG PO (10:23)
[2024-02-07] MEDS: Atorvastatin Calcium 80 MG TABLET PO (10:23)
[2024-02-07] MEDS: Folic Acid 1 MG TABLET PO (10:23)
[2024-02-07] MEDS: buPROPion HCl XL 150 MG TAB.ER.24H PO (10:24)
[2024-02-07] MEDS: Enoxaparin Sodium 40 MG/0.4 ML SYRINGE SUBCUT (10:24)
[2024-02-07] MEDS: Insulin Lispro 100 UNIT/ML 3 ML VIAL SUBCUT ×3 (10:26→22:17)
[2024-02-07] MEDS: Finasteride 5 MG TABLET PO (10:29)
--- NOTE | 2024-02-07 11:05 | MHC.CM.PN ---
Addendum entered by Sharona Sierra RN 02/07/24 13:20: CM MET W/PT'S DTR BRANDON OUTSIDE PT ROOM, DISPO DISCUSSED AND BRANDON AGREEABLE TO STR AT [facility], CM WILL FOLLOW UP W/BRANDON TOMORROW. Original Note: IMM 02/07/24, PER HOSPITALIST PT TO BE MEDICALLY CLEARED FOR STR, CM CONTACTED PT'S SRAVANI AT [employer] ON FILE WHO REPORTS FIRST CHOICE WOULD BE [facility] AND THEN DOES NOT HAVE SPECIFIC PREFERENCES, RREFERRAL PLACED AND CM AWAITING BED OFFER.
[2024-02-07 11:53] LABS: Glucose, Whole Blood 267 mg/dL (60-115)
[2024-02-07 16:26] LABS: Glucose, Whole Blood 370 mg/dL (60-115)
--- NOTE | 2024-02-07 16:47 | P.PNIM_ITS ---
Subjective Subjective Date of Service: 02/07/24 Interval History: covid Review of Systems no sob off oxygen Physical Exam 2 Vital Signs: Vital Signs: Last Vital Signs Temp 97.1 F 02/07/24 15:36 Pulse 67 02/07/24 15:36 Resp 18 02/07/24 15:36 BP 161/77 H 02/07/24 15:36 Pulse Ox 90 L 02/07/24 15:36 O2 Del Method Room Air 02/07/24 15:36 O2 Flow Rate 2 02/07/24 07:50 BMI result Body Mass Index 25.7 General: AOx4, no acute distress Resp: air entry improving ,has b/l some wheezes CVS: S1, S2, RRR GI: +BS, NT, no distention Skin: Warm, dry Neuro: Cranial nerves II-XII grossly intact bilaterally. Motor grossly intact bilaterally Extremities: No edema Psych: Appropriate affect Objective Data Active Medications Acetaminophen (Acetaminophen 325 Mg Tablet) 650 mg PO Q6H PRN PRN Reason: Pain, Mild (Pain Scale 1-3), fever or headache Last Admin: 02/02/24 05:56 Dose: 650 mg Documented By: FUENTES Atorvastatin Calcium (Atorvastatin Calcium 80 Mg Tablet) 80 mg PO DAILY [facility] Last Admin: 02/07/24 10:23 Dose: 80 mg Documented By: AZAM Benzonatate (Benzonatate 100 Mg Capsule) 100 mg PO TID PRN PRN Reason: Cough Last Admin: 02/03/24 20:11 Dose: 100 mg Documented By: BRIGITTE Bupropion HCl (Bupropion Hcl Xl 150 Mg Tab.Er.24h) 150 mg PO DAILY [facility] Last Admin: 02/07/24 10:24 Dose: 150 mg Documented By: AZAM Calcium Carbonate (Calcium Carbonate 750 Mg Tab.Chew) 750 mg PO Q4H PRN PRN Reason: Heartburn Cyanocobalamin (Cyanocobalamin (Vitamin B-12) 1,000 Mcg Tablet) 1,000 mcg PO DAILY [facility] Last Admin: 02/07/24 10:23 Dose: 1,000 mcg Documented By: AZAM Dexamethasone (Dexamethasone 6 Mg Tablet) 6 mg PO DAILY [facility] Last Admin: 02/07/24 10:23 Dose: 6 mg Documented By: AZAM Enoxaparin Sodium (Enoxaparin Sodium 40 Mg/0.4 Ml Syringe) 40 mg SUBCUT Q24H [facility] Last Admin: 02/07/24 10:24 Dose: 40 mg Documented By: AZAM Finasteride (Finasteride 5 Mg Tablet) 5 mg PO DAILY [facility] Last Admin: 02/07/24 10:29 Dose: 5 mg Documented By: AZAM Folic Acid (Folic Acid 1 Mg Tablet) 1 mg PO DAILY [facility] Last Admin: 02/07/24 10:23 Dose: 1 mg Documented By: AZAM Glucose (Glucose Gel 15 Gm Gel..Gram.) 15 gm PO Q15M PRN; Protocol PRN Reason: per Hypoglycemia Standing Ord. Dextrose (D10) 250 mls @ 750 mls/hr IV Q15M PRN; Protocol PRN Reason: per Hypoglycemia Standing Ord. Insulin Human Lispro (Insulin Lispro 100 Unit/Ml 3 Ml Vial) 0 unit SUBCUT QIDACHS [facility]; Protocol Last Admin: 02/07/24 15:14 Dose: Not Given Documented By: AZAM Non-Admin Reason: Patient Asleep Lamotrigine (Lamotrigine 25 Mg Tablet) 25 mg PO BID [facility] Last Admin: 02/07/24 10:23 Dose: 25 mg Documented By: AZAM Latanoprost (Latanoprost 0.005 % Ophth [place] 2.5 Ml Drops) 1 drop EYE-BOTH BEDTIME [facility] Magnesium Hydroxide (Milk Of Magnesia 30 Ml Oral.Susp) 30 ml PO DAILY PRN PRN Reason: Constipation Last Admin: 02/04/24 12:00 Dose: 30 ml Documented By: BLADE Melatonin (Melatonin 3 Mg Tablet) 6 mg PO BEDTIME PRN PRN Reason: Insomnia Metoprolol Tartrate (Metoprolol Tartrate 12.5 Mg Halftab) 12.5 mg PO BID [facility]; Protocol Last Admin: 02/07/24 10:23 Dose: 12.5 mg Documented By: AZAM Olanzapine (Olanzapine 10 Mg Tablet) 10 mg PO BEDTIME [facility] Last Admin: 02/06/24 20:50 Dose: 10 mg Documented By: AZAM Ondansetron HCl (Ondansetron Hcl 4 Mg/2 Ml Vial) 4 mg IVPUSH Q8H PRN PRN Reason: Nausea and Vomiting Sodium Chloride (0.9 % Sodium Chloride Flush 3 Ml Syringe) 3 ml IVFLUSH QSHIFT [facility] Last Admin: 02/07/24 10:24 Dose: 3 ml Documented By: AZAM Vitamin D (Cholecalciferol (Vitamin D3) 25 Mcg Tablet) 50 mcg PO DAILY [facility] Last Admin: 02/07/24 10:23 Dose: 50 mcg Documented By: AZAM Labs 02/03/24 06:00 02/03/24 06:00 Labs: Laboratory Results - last 24 hr 02/06/24 02/07/24 02/07/24 20:38 07:44 11:48 POC Glucose 340 H 277 H 267 H 02/07/24 16:22 POC Glucose 370 H* Assessment and Plan (1) Hypoxia: Status: Acute (2) COVID-19: Status: Acute Assessment and Plan: 83-year-old male with pertinent history of coronary artery disease, hypertension, mixed hyperlipidemia, bipolar disorder, baa-cgjvjtv-gqquxqizh diabetes mellitus who was brought to the emergency department for evaluation of weakness and altered mentation. Was found to be hypoxic and COVID positive. Acute metabolic encephalopathy and acute hypoxic respiratory failure in the setting of COVID with viral sepsis Continue Decadron day 5 Patient continues to need 2L NC Titrate supplemental O2 >92, wean as tolerated Mentation improved, now AOx4 PT consult recommends STR at discharge Hdv-nagrjro-slzibukxh type 2 diabetes Hold metformin Sliding-scale insulin, diabetic diet CAD/HLD Continue statin HTN Continue metoprolol GERD Continue PPI Mood disorder Continue mood stabilizers Full Code DVT Prophylaxis: Lovenox Pt will require continued hospitalization : awaiting STR placement . Quality Stroke Does the patient have a stroke diagnosis?: No VTE Prior VTE?: No VTE Risk Level:: Medical - moderate - high VTE Device Contraindication: Treatment Not Indicated VTE Drug Contraindication: N/A - Med Ordered
[2024-02-07 21:06] LABS: Glucose, Whole Blood 376 mg/dL (60-115)
[2024-02-07] MEDS: OLANZapine 10 MG TABLET PO (22:15)
[2024-02-07] MEDS: Latanoprost 0.005 % Ophth Sol 2.5 ML DROPS 1 DROP EYE-BOTH (22:17)
[2024-02-08] VITALS: BP 163/74; PULSE 62; RESP 18; TEMP 36.2; O2SAT 94
[2024-02-08 03:48] VITALS: BP 128/71; PULSE 54; RESP 20; TEMP 36.4; O2SAT 94
[2024-02-08 07:29] LABS: Glucose, Whole Blood 184 mg/dL (60-115)
[2024-02-08 08:00] VITALS: BP 141/80; PULSE 55; RESP 18; TEMP 36.1; O2SAT 92
[2024-02-08] MEDS: Insulin Lispro 100 UNIT/ML 3 ML VIAL SUBCUT ×2 (08:58→12:08)
[2024-02-08] MEDS: Cholecalciferol (Vitamin D3) 25 MCG TABLET 50 MCG PO (08:58)
[2024-02-08] MEDS: 0.9 % Sodium Chloride Flush 3 ML SYRINGE IVFLUSH (08:58)
[2024-02-08] MEDS: Atorvastatin Calcium 80 MG TABLET PO (08:59)
[2024-02-08] MEDS: Enoxaparin Sodium 40 MG/0.4 ML SYRINGE SUBCUT (08:59)
[2024-02-08] MEDS: dexAMETHasone 6 MG TABLET PO (08:59)
[2024-02-08] MEDS: Folic Acid 1 MG TABLET PO (08:59)
[2024-02-08] MEDS: Finasteride 5 MG TABLET PO (08:59)
[2024-02-08] MEDS: Cyanocobalamin (Vitamin B-12) 1,000 MCG TABLET 1000 MCG PO (08:59)
[2024-02-08] MEDS: buPROPion HCl XL 150 MG TAB.ER.24H PO (08:59)
[2024-02-08] MEDS: Metoprolol Tartrate 12.5 MG HALFTAB PO (09:02)
[2024-02-08] MEDS: lamoTRIgine 25 MG TABLET PO (09:05)
[2024-02-08 09:35] VITALS: BP 141/80; PULSE 55; O2SAT 92
--- NOTE | 2024-02-08 10:58 | MHC.CM.PN ---
DP: PT HAS BEEN MEDICALLY CLEARED FOR DC TO STR AT [facility] AT 3 PM. BLS TRANSPORT BOOKED VIA [facility]. RN NOTIFIED. DAUGHTER BRANDON UPDATED AND CENTER UPDATED.
[2024-02-08 11:59] LABS: Glucose, Whole Blood 275 mg/dL (60-115)
[2024-02-08 12:00] VITALS: BP 120/66; PULSE 59; RESP 18; TEMP 36.4; O2SAT 92
--- NOTE | 2024-02-08 13:41 | PM.DS ---
DS: Providers Provider Date of Service: 02/08/24 Date of admission: 02/01/24 02:33 Date of discharge: 02/08/24 Primary care physician: Sam Duran DO Admitting clinician: Ignacio Ventura Attending physician on admission: Ignacio Ventura DS: Diagnosis Discharge Diagnosis (1) Hypoxia: Status: Acute (2) COVID-19: Status: Acute DS: Summary Hospital Course Hospital Course: 83-year-old male with pertinent history of coronary artery disease, hypertension, mixed hyperlipidemia, bipolar disorder, mpm-krncelt-enertrxty diabetes mellitus who was brought to the emergency department for evaluation of weakness and altered mentation. Unable to obtain history from the patient. Patient does not know why he is at the hospital. History obtained from ER provider, chart review and family at bedside. The family states that patient was weak and unable to ambulate on the day of presentation. He had a witnessed fall due to weakness, did not lose consciousness. Did not hit his head. Did not complain of chest pain or palpitations prior to the fall. No jerking movement of extremities. Patient was also found to be confused on the day of presentation. Does endorse dry cough and chills. No documented temperature. No chest pain, shortness of breath, abdominal pain, changes in urinary or bowel habits. In the emergency department, patient tested positive for COVID-19 and requiring 2L supplemental oxygen. Hospital course: Patient was initially admitted for Acute metabolic encephalopathy and acute hypoxic respiratory failure in the setting of COVID with viral sepsis: Patient was started on oxygen, steroids and oxygen: With above supportive care patient seems to be improved significantly, weaned off of oxygen sats are 92% on room air. viral sepsis resolved. Mental status also improved significantly now near his baseline. blood culture negative @5days. Patient will be going to the rehab today. plan: Patiently already got a week of steroids, not hypoxic. Improved. Follow-up with PCP Assessment plan coordination time spent 40 minute. Time Attestation Total time managing care of this patient today: 40 mintues. Discharge Coordination Time (in mins): 40 min Quality: Safe Use of Opioids Does Pt have an Active Cancer Diagnosis on the Problem List?: No Quality: Stroke Does the patient have a stroke diagnosis?: No Physical Exam Vital Signs: Vital Signs: Last Vital Signs Temp 97.0 F 02/08/24 08:00 Pulse 55 02/08/24 09:35 Resp 18 02/08/24 08:00 BP 141/80 H 02/08/24 09:35 Pulse Ox 92 02/08/24 09:35 O2 Del Method Room Air 02/08/24 08:00 O2 Flow Rate 1 02/08/24 03:48 BMI result Body Mass Index 25.7 Appearance: Alert.? Oriented X3.? Eyes: Pupils equal, round and reactive to light.? Sclera nonicteric.? ENT: Pharynx normal.? Moist mucous membranes. cvs: rrr, [id number] , no murmur res: clear to auscultation ,no rhonchii or wheezing abd: no rebound or guarding ,nt, bs present. ext pulses present , no cyanosis. neuro: axo3 , nonfocal. DS: Data Data Completed and Pending Completed studies during hospitalization [Text1]: Procedures Drainage of Left Knee Joint, Percutaneous Approach (03/18/21) Other Electroconvulsive Therapy (03/18/21) Labs on day of discharge: Laboratory Results - last 24 hr 02/07/24 02/07/24 02/08/24 16:22 21:00 07:13 POC Glucose 370 H* 376 H* 184 H 02/08/24 11:14 POC Glucose 275 H Imaging Chest x-ray: Radiologist's impression: ITS Impressions Chest X-Ray 02/01/24 00:47 IMPRESSION: Chronic blunting of the left costophrenic angle similar to previous. No acute cardiopulmonary process. Cervical Spine CT 02/01/24 00:48 IMPRESSION: CT HEAD: 1. No acute intracranial abnormality. 2. Age-related cerebral volume loss and mild chronic small vessel ischemic changes. 3. Pansinusitis. CT CERVICAL SPINE: 1. Straightening of the expected cervical spine curvature. 2. No acute cervical spine fracture or dislocation. 3. Multilevel cervical spondylosis and facet osteoarthritic changes as described above. Head CT 02/01/24 00:48 IMPRESSION: CT HEAD: 1. No acute intracranial abnormality. 2. Age-related cerebral volume loss and mild chronic small vessel ischemic changes. 3. Pansinusitis. CT CERVICAL SPINE: 1. Straightening of the expected cervical spine curvature. 2. No acute cervical spine fracture or dislocation. 3. Multilevel cervical spondylosis and facet osteoarthritic changes as described above. Chest X-Ray 02/01/24 08:50 IMPRESSION: * No acute pulmonary disease. * No evidence of bowel obstruction. No acute radiographic abnormalities in the abdomen. KUB X-Ray 02/01/24 08:50 IMPRESSION: * No acute pulmonary disease. * No evidence of bowel obstruction. No acute radiographic abnormalities in the abdomen. Discharge Plan Discharge Anticipated Discharge Date/Time: 02/07/24 10:16 Patient Disposition: Xfer SNF Discharge Diagnosis: hypoxia /covid Referrals: [facility] [Outside] - 1 Week (TRANSFER FOR SHORT TERM REHAB) Sam Duran DO [Primary Care Provider] - 1 Week Discharge Medications: Continued metoprolol tartrate 25 mg tablet 12.5 mg PO BID Qty: 90 3RF melatonin 10 mg tablet 1 tab PO BEDTIME PRN (Reason: insomnia) metformin 500 mg tablet extended release 24 hr 500 mg PO DAILY@0800 olanzapine 10 mg Tablet 10 mg PO BEDTIME 30 Days Qty: 30 0RF atorvastatin 80 mg tablet 80 mg PO DAILY 90 Days Qty: 90 3RF alendronate 70 mg tablet 70 mg PO SA 30 Days Qty: 5 0RF lamotrigine 25 mg tablet 25 mg PO BID Qty: 60 0RF finasteride 5 mg tablet 5 mg PO DAILY 30 Days Qty: 30 0RF alfuzosin 10 mg tablet extended release 24 hr 1 tab PO BEDTIME 90 Days Qty: 90 0RF cholecalciferol (vitamin D3) 50 mcg (2,000 unit) tablet 50 mcg PO DAILY pantoprazole 40 mg tablet,delayed release (DR/EC) 40 mg PO DAILY@0630 bimatoprost 0.01 % drops 1 drp ophthalmic (eye) BEDTIME bupropion HCl 150 mg tablet extended release 24 hr 150 mg PO DAILY folic acid 1 mg tablet 1 mg PO DAILY cyanocobalamin (vitamin B-12) [Vitamin B-12] 1,000 mcg tablet 1,000 mcg PO DAILY Discharge Orders: Discharge Order (Routine); Ordered 02/08/24 Ordered By: Ignacio Ventura Diet: Advance to usual diet Activity on Discharge: As tolerated Stand Alone Forms: Patient Portal Discharge page Print Language: Croatian Care Plan Goals: Patient came to the hospital because of hypoxemic respiratory failure secondary to COVID-patient was given oxygen as well as supportive care patient seems to be improved, will be going to rehab. Dexamethasone for 2 more days. Health Concerns: As above. Plan of Treatment: As above. Assessment: As above.
[2024-02-08 15:14] VITALS: BP 124/69; PULSE 64; RESP 18; TEMP 36.4; O2SAT 94
== END 2024-02-08 16:21 | disposition skilled nursing facility (03) | DRG 871 ==
LOC: HO.ED 02-01 00:59 → HO.EDOVER 02-01 02:33 → HO.IMC 02-01 13:55
PROVIDERS: Internal Medicine; Student in an Organized Health Care Education/Training Program; Admitting Provider Student in an Organized Health Care Education/Training Program; Emergency Provider Emergency Medicine; PCP Internal Medicine Infectious Disease; Visit Provider Internal Medicine
DX: A41.89 Other specified sepsis (principal); G93.41 Metabolic encephalopathy; U07.1 COVID-19; J96.01 Acute respiratory failure with hypoxia; E87.21 Acute metabolic acidosis; I10 Essential (primary) hypertension; E78.2 Mixed hyperlipidemia; F31.9 Bipolar disorder, unspecified; E11.65 Type 2 diabetes mellitus with hyperglycemia; I25.10 Atherosclerotic heart disease of native coronary artery without angina pectoris; Z87.891 Personal history of nicotine dependence; Z85.3 Personal history of malignant neoplasm of breast; Z90.12 Acquired absence of left breast and nipple; Z95.0 Presence of cardiac pacemaker; Z95.1 Presence of aortocoronary bypass graft; Z79.84 Long term (current) use of oral hypoglycemic drugs; Z79.899 Other long term (current) drug therapy
CPT/HCPCS: 36415; 70450; 71045; 72125; 74018; 80048; 80076; 81003; 82947; 83605; 83735; 84484; 85025; 85027; 85610; 87040; 87635; 92610; 93005; 97116; 97162; 97530; 99285; J0131; J0696; J1650; J1940; J8540

== ENCOUNTER → 2024-02-01 02:33 | Outpatient (BNV) | payer MEDICARE, SELFPAY | PROVIDERS: Admitting Provider Student in an Organized Health Care Education/Training Program; Emergency Provider Emergency Medicine; Visit Provider Student in an Organized Health Care Education/Training Program | DX: J96.01 Acute respiratory failure with hypoxia (principal); U07.1 COVID-19 | CPT/HCPCS: 99223; 99231; 99232; 99233; 99239; 99499 ==

== ENCOUNTER 2024-08-22 12:42 | Outpatient (AMB) | payer MEDICARE, SELFPAY ==
[2024-08-22 12:56] VITALS: BP 100/70; PULSE 55; BMI 25.7
--- NOTE | 2024-08-22 12:56 | A.OFFVIS_ITS ---
Vital Signs 08/22/24 12:56 Height 5 ft 5 in Weight 154 lb 5.177 oz BMI 25.7 BP 100/70 Blood Pressure Location Lt brachial Pulse 55 Intake Visit Reasons: overdue follow-up with ekg and [facility] Intake Note: Follow-up with [facility] check feeling good Director Of Physiotherapy Services Required: No Allergies Penicillins Allergy (Unknown, Verified 01/31/24 23:13) Unknown metoprolol Adverse Reaction (Intermediate, Verified 01/31/24 23:13) bradycardia timolol Adverse Reaction (Intermediate, Verified 01/31/24 23:13) low bp tamsulosin [From Flomax] Adverse Reaction (Mild, Verified 01/31/24 23:13) Diarrhea beta blockers Adverse Reaction (Uncoded 01/31/24 23:13) Hypotension Medication List - Last Reviewed 08/22/24 by HOMER Ward alendronate 70 mg PO SA 30 days alfuzosin ER 1 tab PO BEDTIME 90 days aspirin (Adult Aspirin Regimen) 162 mg PO DAILY atorvastatin 80 mg PO DAILY 90 days bimatoprost 0.01% 1 drp ophthalmic (eye) BEDTIME bupropion HCl XL 150 mg PO DAILY cholecalciferol (vitamin D3) 50 mcg PO DAILY cyanocobalamin (vitamin B-12) (Vitamin B-12) 1,000 mcg PO DAILY finasteride 5 mg PO DAILY 30 days folic acid 1 mg PO DAILY lamotrigine 25 mg PO BID melatonin 5 mg PO BEDTIME PRN metformin ER 500 mg PO DAILY@0800 metoprolol tartrate 12.5 mg (1/2 x 25 mg) PO BID olanzapine 10 mg PO BEDTIME 30 days pantoprazole 40 mg PO DAILY@0630 HPI Comments Details: Travon comes for follow-up. Overall he has been doing well. Daughter says that his blood pressure is generally remains in 90s systolic. He denies any lighthea dedness. Denies any chest pain at current functional capacity. Denies any syncopal episodes. He has been also using walker and still has gait balance issues. However he has not had any falls. Denies any heart failure symptoms. [facility] Medical History History of left breast cancer CAD (coronary artery disease) Cardiac pacemaker in situ Sick sinus syndrome HTN (hypertension) Diabetes Hyperlipidemia Surgical History Hx of cataract surgery Hx of mastectomy History of permanent cardiac pacemaker placement Hx of CABG Family History Father CVD (cardiovascular disease) Mother CVD (cardiovascular disease) Brother CVD (cardiovascular disease) Sister Diabetes Son Diabetes Social History Household Members: Spouse Housing: Apartment Do you presently have visiting nurse or other home services: No Alcohol intake: never Patient Tobacco Use Status: Former Tobacco user Tobacco use type: Cigarette Advance Directives Date on File: 03/17/21 service: No Sexual orientation: Straight/Heterosexual Review of Systems Const Denies chills, Denies fatigue, Denies fever(s), Denies frequent falls, Denies weakness, Denies weight gain and Denies weight loss ENT Denies dizziness Card Denies chest pain, Denies leg edema, Denies lightheadedness, Denies palpitations, Denies dyspnea, Denies dyspnea on exertion, Denies orthopnea and Denies other (loss of consciousness) Resp Denies cough, Denies dyspnea and Denies dyspnea on exertion GI Denies hematochezia and Denies change in stool character Musc Denies abnormal gait, Denies muscle weakness, Denies numbness, Denies radiating pain into limb and Denies tingling Neuro Denies abnormal gait, Denies dizziness, Denies frequent falls, Denies numbness, Denies tingling and Denies weakness Endo Denies fatigue and Denies palpitations Physical Exam Vital Signs: Last Vital Signs Pulse 55 08/22/24 12:56 BP 100/70 08/22/24 12:56 BMI result Body Mass Index 25.7 Const General: cooperative, comfortable, no acute distress, alert, awake and well groomed Nutritional Appearance: other (frail) Orientation/consciousness: patient oriented x3 Limitations: ambulation with walker Neck Neck: Yes trachea midline, Yes supple and Yes no JVD Resp Effort & Inspection: normal respiratory effort Auscultation: clear to auscultation bilaterally Cardio Jugular venous distension: no JVD Palpation: normal PMI Rate: regular rate Rhythm: regular rhythm Heart sounds: S1 normal heart sound present and S2 normal heart sound present GI Auscultation: normal bowel sounds Skin General skin exam: no rashes or lesions noted Neuro General: patient oriented x3 and no focal motor deficits Extrem General: Yes no clubbing, cyanosis or edema Psych Appearance: grossly normal Office Procedures Cardiac Device Check Cardiac Device Check Details: Dual-chamber [place] pacemaker in place. Programmed in DDDR at 55 beats per minute. Atrial pacing 93% of the time. Atrial pacing thresholds were excellent. Ventricular pacing thresholds are stable. Atrial ventricular sensing is adequate. Pacing lead impedance is stable. Battery life is at 3 and half to 4 and half years [id number]-[id number] Cardiac Device Check, pacemaker dual lead Procedure code (CPT) selection complete Assessment & Plan Assessment & Plan (1) CAD (coronary artery disease): Code(s): I25.10 - Atherosclerotic heart disease of [place] coronary artery without angina pectoris Category: Medical Plan: CAD, stable with any symptoms of angina. Current point time given low blood pressure will start metoprolol therapy. Continue lifelong aspirin therapy. Continue high-intensity statin therapy with LDL well optimized at 46 mg/dL. Continue maintain adequate hydration. Fall precaution were discussed. Continue aggressive diabetes management which currently hemoglobin A1c at 7%. (2) Cardiac pacemaker in situ: Comment: [place] dual-chamber pacemaker, moved from left chest to right chest AprilNovember 2016 Code(s): Z95.0 - Presence of cardiac pacemaker Category: Medical Plan: Cardiac pacemaker in-situ for sick sinus syndrome. Pacemaker is working very well at this point time. Will continue monitor remotely. Follow up in the clinic in 6 months time. Follow up in the clinic in 6 months time, sooner p.r.n. thank you for allowing me to partake in his care Coding Level of Care Code Est Pt Level 4 (22975) Complex EM visit Add On G2211 Diagnoses CAD (coronary artery disease) I25.10 Cardiac pacemaker in situ Z95.0 CPT Codes Cardiac Device Check - Cardiac Device 2: [id number] Cardiac Device Check, pacemaker dual lead ([id number])
--- OUTSIDE RECORDS SUMMARY | 2024-08-22 15:18 | XMS_ITS ---
Author Organization [facility] Address Unknown Allergies, Adverse Reactions, Alerts Substance Reaction Status Noted Date Resolved Date Timolol active 02/08/2024 Tamsulosin active 02/08/2024 Penicillin active 02/08/2024 Beta Adrenergic Blockers active 02/08/2024 Problems Problem Status Start Date End Date OTHER LACK OF COORDINATION (Primary) (R27.8 - ICD-10-C M) ACTIVE 02/08/2024 COVID-19 (U07.1 - ICD-10-CM) ACTIVE 02/08/2024 SEVERE SEPSIS WITHOUT SEPTIC SHOCK (R65.20 - ICD-10-CM ) ACTIVE 02/08/2024 METABOLIC ENCEPHALOPATHY (G93.41 - ICD-10-CM) ACTIVE 02/08/2024 TYPE 2 DIABETES MELLITUS WIT HOUT COMPLICATIONS (E11.9 - ICD-10-CM) ACTIVE 02/08/2024 BIPOLAR DISORDER, UNSPECIFIED (F31.9 - ICD-10-CM) ACTI VE 02/08/2024 ACUTE RESPIRATORY FAILURE WI TH HYPOXIA (J96.01 - ICD-10-CM) ACTIVE 02/08/2024 UNSPECIFIED GLAUCOMA (H40.9 - ICD-10-CM) ACTIVE 02/08/2024 UNSPECIFIED PROTEIN-CALORIE MALNUTRITION (E46 - ICD-10 -CM) ACTIVE 02/08/2024 HYPERLIPIDEMIA, UNSPECIFIED (E78.5 - ICD-10-CM) ACTIVE 02/08/2024 ESSENTIAL (PRIMARY) HYPERTENSION (I10 - ICD-10-CM) ACT KITA 02/09/2024 REPEATED FALLS (R29.6 - ICD-10-CM) ACTIVE 2023 CHRONIC OBSTRUCTIVE PULMONAR Y DISEASE, UNSPECIFIED (J44.9 - ICD-10-CM) ACTIVE 02/08/2024 ATHEROSCLEROTIC HEART DISEAS E OF [place] CORONARY ARTERY WITHOUT ANGINA PECTORIS (I25.10 - ICD-10-CM) ACTIVE 02/08/2024 Results * XRAY CHEST 2 VIEW Performed by: [employer] Component Value Range Date XRAY CHEST 2 VIEW XRAY CHEST 2 VIEWSee NoteFINDINGS: Lungs: No focal consolidation. Pulmonary vasculature is within normal limits. Prominent lung markings. Pleura: No pneumothorax. No pleural effusion. Heart and Mediastinum: The cardiomediastinal silhouette is normal in size and contour.CONCLUSION: No acute cardiopulmonary process.ELECTRONICALLY SIGNED BY MARVIN WHITT M.D. 02/13/2024 1:13:27 PM EDT.Reason for Study: D72.829 ELEVATED WHITE BLOOD CELL COUNT, UNSPECIFIEDPrincipal Result X Ray Equipment Mechanic: MARVIN WHITT ([id number])President And Ceo: MARIBELL TOLENTINO (BBIRKS)Inbound Sales Consultant President And Ceo: STEFANO 02/13/2024 01:13 pm EDT Encounters Encounter Performer Performer Role Encounter Diagnoses Location Date Discharge - Discharged / Transferred to home under care of organized home health service organization - [facility] - Private home/apt. with home health services [facility] 4 05:00 pm EDT - 4 11:51 am EDT Immunizations Vaccine Date Influenza Tetanus 04/09/2018 12:00 am EDT (Pneumococcal) PCV13- Conjugate 13-tammy t Vaccine 06/01/2016 12:00 am EST (Tetanus, Diphtheria, and Acellular Pert ussis) Tdap 08/28/2006 12:00 am EDT (Pneumococcal) PPSV23- Polysaccharide 23 -valent Vaccine 09/18/2008 12:00 am EDT Social History
--- OUTSIDE RECORDS SUMMARY | 2024-08-22 15:18 | XMS_ITS | Clinical Summary ---
Author Organization [address] Address [address] [place] [phone] Phone Care Team Providers Care Cabbage Salter Name Role Phone Teresa Duran MD Primary Care Provider [phone] Allergies Active Allergy Reactions Criticality Noted Date Comments Beta-Blockers (Beta-Adrenerg ic Blocking Agts) 08/02/2017 Tamsulosin High 04/29/2021 Bradycardic Timolol Maleate Medium 08/17/2005 slow heart rate Medications alendronate (FOSAMAX) 70 mg tablet Take 1 Tablet by mouth every 7 days. 10/12/19 24 Active lancets (OneTouch Delica Plus Lancet) 33 gauge USE 1 LANCET TOPICALLY DAILY 02/09/20 23 Active OneTouch Ultra Test test strip USE TO TEST BLOOD SUGAR ONCE DAILY 01/25/20 23 Active OLANZapine (ZyPREXA) 10 mg tablet Take 1 Tablet by mouth at bedtime. Active buPROPion SR (WELLBUTRIN SR) 150 mg 12 hr tablet Take 1 Tablet by mouth daily. Active clotrimazole (LOTRIMIN) 1 % cream Apply to skin and toenails daily for 12 weeks 05/26/20 22 Active chlorhexidine (HIBICLENS) 4 % external liquid Clean feet in shower every morning with soap of the skin and nails stop using if skin gets too dry as an antifungal soap 02/25/20 22 Active ammonium lactate (LAC-HYDRIN) 12 % lotion Apply to toenails nightly to help soften toenails removed thickness 02/25/20 22 Active melatonin 1 mg tablet Take 1 mg by mouth every night at bedtime. Active finasteride (PROSCAR) 5 mg tablet TAKE ONE TABLET BY MOUTH EVERY DAY 09/28/19 Active lamoTRIgine (LaMICtal) 25 mg tablet 2 (two) times a day. Active metoprolol tartrate (LOPRESSOR) 25 mg tablet Take 12.5 mg by mouth 2 times daily. Active alfuzosin (UROXATRAL) 10 mg 24 hr tablet Take 10 mg by mouth. Active tolnaftate (TINACTIN) 1 % external solution Apply topically to toenails 06/28/19 Active blood-glucose meter kit BLOOD GLUCOSE MONITORING SUPPL (ONE TOUCH ULTRA 2) W/DEVICE KIT: Use to test blood sugar once daily 03/13/20 Active bimatoprost (LUMIGAN) 0.01 % ophthalmic drops apply 1 Drop to the eye daily. In both eyes Active nitroglycerin (NITROSTAT) 0.[address] 0.4 mg under the tongue every 5 minutes as needed. Active aspirin 81 mg EC tablet Take 2 Tabs by mouth daily. Active melatonin 3 mg tablet Take 5 mg by mouth at bedtime. Active isosource 1.5 Avtar/mL (Ensure Plus with Fiber) Take 237 mL by mouth 1 (one) time each day. 5688 mL 11 05/06/20 24 025 Active atorvastatin (LIPITOR) 80 mg tablet TAKE ONE TABLET BY MOUTH EVERY DAY 90 tablet 1 06/07/20 24 Active metFORMIN XR (GLUCOPHAGE-XR ) 500 mg 24 hr tablet TAKE TWO TABLETS BY MOUTH DAILY (WITH BREAKFAST) 180 tablet 1 06/14/20 24 Active Vitamin B-12 1,000 mcg tablet TAKE ONE TABLET BY MOUTH DAILY. 90 tablet 1 06/14/20 24 Active pantoprazole (PROTONIX) 40 mg EC tablet TAKE 1 TABLET BY MOUTH DAILY. 90 tablet 1 08/01/19 25 Active folic acid (FOLVITE) 1 mg tablet TAKE ONE TABLET BY MOUTH EVERY DAY 90 tablet 1 08/01/19 25 Active cholecalcifero l (VITAMIN D-3) 50 mcg (2,000 unit) tablet TAKE 1 TABLET BY MOUTH DAILY. 90 tablet 3 08/01/19 25 Active cholecalcifero l (VITAMIN D-3) 50 mcg (2,000 unit) tablet Take 1 Tablet by mouth daily. 10/03/19 24 025 Discontinued pantoprazole (PROTONIX) 40 mg EC tablet TAKE ONE TABLET BY MOUTH EVERY DAY 09/29/19 24 025 Discontinued folic acid (FOLVITE) 1 mg tablet TAKE ONE TABLET BY MOUTH EVERY DAY 09/01/19 24 025 Discontinued Active Problems Problem Noted Date Diagnosed Date Other specified health status 03/26/2024 Overview (03/26/2024): Cor Athrscl-Uns Vessel Major depression, recurrent, chronic 02/19/2021 RLS (restless legs syndrome) 03/13/2020 Pulmonary mass 01/18/2019 Weight loss 01/07/2019 Abnormal CXR 01/07/2019 Overview (03/26/2024): Follows with Dr. Boland, CT 06/2019, better Osteopenia determined by x-ray 10/10/2018 Bipolar affective disorder, current episode mixe d 08/29/2017 Overview (03/26/2024): Diagnosed and follows with Dr. Kaleb Ochoa, psychiatry at [facility] [place]. 03/14/[address] 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 Orders: Vitamin D 25 hydroxy; Future Hemoglobin A1c; Future Thyroid stimulating hormone; Future Comprehensive metabolic panel; Future Complete blood count; Future BPH (benign prostatic hyperplasia) 05/31/2013 Overview (03/26/2024): Initially diagnosed in 2005, good response in terms of nocturia to low-dose alpha-priscila Hyperparathyroidism 02/01/2011 Controlled diabetes mellitus type II without com plication 10/25/2010 Overview (03/26/2024): Last Assessment & Plan: Checking Your Blood Sugars Please check your blood sugars every day. Please check your sugars at the following times of day: before breakfast Your Blood Sugar Goals Pre Meal: 90-130 2 hours after meals: 110-160 Bedtime: 110-150 Use the Results ?? Bring your glucometer to every appointment ?? Write your fingerstick blood sugars down on a log sheet or record book. Bring them to your appointment ?? Look for patterns in the numbers. The results help you and your provider make decisions about your diabetes treatment plan. Your Results and your Goals Your Result / Date of Completion Your Goal / How Often to Assess Component Value Date HGBA1C 6.2 01/27/2015 Less than 7% --- 2-4 times per year BP Readings from Last 1 Encounters: 04/29/15 97/66 Less than 140/90 --- once per year Component Value Date MALBCR 1.8 09/26/2014 Less than 30 --- once per year Component Value Date LDL 52 01/27/2015 Less than 100 --- once per year Wt Readings from Last 1 Encounters: 04/29/15 168 lb 3.2 oz (76.295 kg) Your goal weight by next visit: 165lb --- reassess 2-4 times a year Health Maintenance Due Topic Date Due ? Adult Immunization: Zostavax For Patients Over 60 2002 ? Abdominal Aortic Aneurysm (Aaa) Screening 11/09/2007 ? Diabetes: Annual Foot Exam 03/30/2012 ? Colon Cancer Screening 05/20/2014 ? Diabetes: Annual Care Plan 01/16/2015 ? Influenza (##1 of 1) 02/17/2015 Your Action Plan Your diabetes is well controlled and no changes are required to your current plan. Check blood glucose as directed and write down all results. Continue to work on weight loss with a goal of losing 2-4 pounds per month Contact me if you experience any barriers to care such as inability to purchase your medication, difficulty getting to your appointments or difficulty understanding your care plan When to Call your Healthcare Provider If your blood sugar falls below 70 and you do not know why or you become unconscious If you are sick and unable to take liquids because or nausea or vomiting If you have a fever over 101 If your blood sugar is 300 or higher on greater than 3 separate occasions during the same week If you are just unsure what to do Educational Resources [place] Diabetes Association (www.diabetes.org) Centers for Disease Control and Prevention (www.cdc.gov/diabetes) This care plan was created in collaboration with Kurt Henderson on 04/29/2015 Assessment & Plan (08/12/2024 12:11 PM EST): Last A1c of 7.8%. will re-order. Continue metformin. Orders: Vitamin D 25 hydroxy; Future Hemoglobin A1c; Future Thyroid stimulating hormone; Future Comprehensive metabolic panel; Future Complete blood count; Future Assessment & Plan (05/06/2024 12:38 PM EST): Diabetes is showing some good improvement. Hemoglobin A1c is now 7.8%. Considering patient's age and comorbidities, this is reasonable. During the last 3 months, patient has also been on prednisone therapy, and so there still may be further improvement in the hemoglobin A1c next month without the medication change. He will continue to be careful with diet, and I appreciate the assistance from patient's family. Will need to balance the need for nutrition along with the patient's control for diabetes. The patient is drinking Ensure Plus with fiber, which I think is reasonable to continue, in fact I can write a prescription for this. Orders: Complete blood count; Future Comprehensive metabolic panel; Future Thyroid stimulating hormone; Future Hemoglobin A1c; Future HTN (hypertension) 07/26/2010 Assessment & Plan (08/12/2024 12:11 PM EST): HTN well controlled in office today. Continue metoprolol. Orders: Vitamin D 25 hydroxy; Future Hemoglobin A1c; Future Thyroid stimulating hormone; Future Comprehensive metabolic panel; Future Complete blood count; Future Assessment & Plan (05/06/2024 12:38 PM EST): Blood pressure is well-controlled today. Patient will continue on metoprolol. Will follow renal function. Orders: Complete blood count; Future Comprehensive metabolic panel; Future Thyroid stimulating hormone; Future Hemoglobin A1c; Future Actinic keratosis 09/08/2008 Overview (03/26/2024): Actinic keratosis Pure hypercholesterolemia 01/19/2006 Assessment & Plan (08/12/2024 12:11 PM EST): Last lipid panel 3 months ago. Continue lipitor 80mg. Orders: Vitamin D 25 hydroxy; Future Hemoglobin A1c; Future Thyroid stimulating hormone; Future Comprehensive metabolic panel; Future Complete blood count; Future Bradycardia 01/19/2006 Overview (03/26/2024): sandy believed to be from B priscila eye drops Coronary atherosclerosis 07/11/2005 Overview (03/26/2024): s/p CABGX 4, repeat Cath showed , followed by Dr. Nunes 05/25 mibi small ischemia RCA, circ teritory Nuclear stress test (-) 03/27 Encounters Date Type Department Care Team Description 08/12/2024 11:00 AM EST Office Visit Adult Medicine [address] [phone] Shaq Kunz PA Pure hypercholesterolemia (Primary Dx); Hypertension, unspecified type; Controlled type 2 diabetes mellitus without complication, unspecified whether [employer] [place] insulin use ([facility]); Vitamin D deficiency; At risk for falls 06/25/2024 Billing Patient Not Present Adult [address] [phone] Elmer Ventura MD Essential (primary) hypertension (Primary Dx); Chronic obstructive pulmonary disease, unspecified COPD type (CMS/HCC); Type 2 diabetes mellitus without complication, unspecified whether intermediate insulin use (CMS/HCC); Bipolar affective disorder, remission status unspecified (CMS/[facility]); Atherosclerosis of [place] coronary artery of [place] heart without angina pectoris; Benign prostatic hyperplasia, unspecified whether lower urinary tract symptoms present; Hyperlipidemia, unspecified hyperlipidemia type; Other specified disorders of bone density and structure, unspecified site; Spondylosis without myelopathy or radiculopathy, cervical region; Presence of coronary angioplasty implant and graft; Personal history of nicotine dependence; nephrology nurse (current) use of aspirin; nephrology nurse (current) use of bisphosphonates; nephrology nurse (current) use of oral hypoglycemic drugs; Other [employer] [place] (current) drug therapy; Problems related to health literacy; Personal history of other infectious and parasitic diseases; Personal history of COVID-19; History of falling 05/28/2024 1:00 PM EST Office Visit Orthopedic Surgery - [address] [phone] Flex Carroll, DPM Ingrowing nail (Primary Dx); Metatarsalgia of both feet; Dermatophytosis of nail; Type II diabetes mellitus with peripheral circulatory disorder (CMS/HCC); Acquired hammer toe of right foot; Hammer toe of left foot from Last 3 Months Immunizations Name Administration Dates Next Due Influenza trivalent, 0.5mL ( Fluzone High-dose) 65yo and older 03/07/2023,03/03/2022,03/13/2020,04/09,03/19/2018 Influenza trivalent, with pr eservative (Fluzone; Afluria) 6mo and older 04/29/2015,05/19/2014 Influenza, Unspecified 05/15/2016 Moderna SARS-CoV-2 COVID-19, mRNA, LNP-S, preservative free 05/04/2021 Pfizer SARS-CoV-2 COVID-19, mRNA, LNP-S, preservative free 08/09/2020,07/21/2020 Pneumococcal conjugate 13 va lent (Prevnar 13, PCV13) 2mo and older 06/01/2016 Pneumococcal polysaccharide 23 valent (Pneumovax 23) 2yo and older 09/18/2008 Td Tetanus diptheria (Tdvax) 7yo and older 04/09/2018 Tdap Tetanus diptheria acell ular pertussis (Boostrix; Adacel) 7yo and older 08/28/2006 Zoster Live 05/03/2015 Surgical History Surgery Date Site/Laterality Comments COLONOSCOPY 05/20/2013 PROCEDURE: HISTORICAL COLONOSCOPY; COMMENT: tics; would not repeat CORONARY ARTERY BYPASS GRAFT PROCEDURE: HISTORICAL CABG Medical History Medical History Date Comments Other specified cardiac dysrhythmias(427.89) 01/19/2006 DX:Other specified cardiac dysrhythmias(427.89); COMMENT: sandy believed to be from B priscila eye drops Pure hypercholesterolemia 01/19/2006 DX:Pur e hypercholesterolemia Coronary atherosclerosis of unspecified type of vessel, [place] or graft 07/11/2005 DX:Coronary atherosclerosis of unspecified type of vessel, [place] or graft; COMMENT: s/p CABGX 4, repeat Cath showed , followed by Dr. Nunes Reportedly mibi (-) 07/27 at [facility]. Coronary atherosclerosis of unspecified type of vessel, [place] or graft 07/11/2005 DX:Coronary atherosclerosis of unspecified type of vessel, [place] or graft; COMMENT: s/p CABGX 4, repeat Cath showed , followed by Dr. 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 Kaleb Ochoa, psychiatry at [facility] Depressive disorder DX:Depressiv e disorder Major depression, recurrent, chronic (CMS/HCC) 02/19/2021 DX:Major depression, recurre nt, chronic (HCC) Family History Medical History Relation Name Comments Diabetes Aunt Other: emphysema Father Bipolar disorder Mother Heart failure Mother age 85 Diabetes Sister obese Diabetes Uncle Relation Name Status Comments Aunt Father Mother Sister Uncle Social History Tobacco Use Types Packs/Day Years Used Date Smoking Tobacco: Former Cigarettes 0 06/19/1962 - 06/19/1966 Smokeless Tobacco: Never Tobacco Cessation:Counseling Given: Not Answered Alcohol Use Standard Drinks/Week Comments No 0 (1 standard drink = 0.6 oz pur e alcohol) Sex and Gender Information Value Date Recorded Sex Assigned at Not on file Legal Sex Male 12:26 PM EST Gender Identity Not on file Sexual Orientation Not on file Obstetrics History Last Filed Vital Signs Vital Sign Reading Time Taken Comments Blood Pressure 100/54 08/12/2024 11:00 AM EST Pulse 60 08/12/2024 11:00 AM EST Temperature 36.4 ??C (97.5 ??F) 08/12/2024 1 1:00 AM EST Respiratory Rate 16 08/12/2024 11:0 0 AM EST Oxygen Saturation 96% 08/12/2024 11: 00 AM EST Inhaled Oxygen Concentration - - Weight 71.6 kg (157 lb 12.8 oz) 025 11:00 AM EST Height 172.7 cm (5' 8 ) 08/12/2024 11:0 0 AM EST Body Mass Index 23.99 08/12/2024 11:00 AM EST Plan of Treatment Upcoming Encounters Date Type Department Care Team (Late st Contact Info) Description 08/26/2024 1:00 PM EDT Office Visit Orthopedic Surgery - [place] [id number] [phone] Flex Carroll, DPM [address] [address] 11/04/2024 11:00 AM EDT Office Visit Adult [address] [phone] Shaq Kunz PA [address] [place] [phone] 03/17/2025 11:00 AM EDT Office Visit Adult [address] [phone] Teresa Duran MD [address] [place] [phone] Health Maintenance Due Date Last Done Comments Diabetes: Annual Foot Exam 1950 Zoster Vaccines (1 of 2) 06/28/2015 05/03/2015 RSV Immunization Patients 60+ Years Old (1 - 1-dose 75+ series) 2017 Colorectal Cancer Screening: Stool Based Tests (FOBT/FIT) 05/28/2022 Depression Screening 05/28/2022 Falls Risk Assessment 05/28/2022 Social Influencers of Health Screening 05/28/2022 COVID-19 Vaccine ( season) 2024 04/18/2022, 05/04/2021, 08/09/2020, Additional history exists Influenza Vaccine (#1) 2024 , 03/03/2022, 03/13/2020, Additional history exists Diabetes: Blood Sugar Control Test (HGBA1C) 02/09/2025 08/12/2024, 05/02/2024, 09/26/2023 Medicare Annual Wellness Visit 03/05/2025 03/05/2024 Diabetes: Annual Urine Albumin-Creatinine Ratio (uACR) 05/02/2025 05/02/2024, 10/25/2022 Diabetes: Annual Retina Eye Exam 08/06/2025 08/06/2024 Diabetes: Annual GFR (Glomerular Filtration Rate) 08/12/2025 08/12/2024, 09/26/2023 Hypertension/CHF/CAD Annual BMP Blood Test 08/12/2025 08/12/2024, 09/26/2023 DTaP,Tdap,and Td Vaccines (3 - Td or Tdap) 04/09/2028 04/09/2018, 08/28/2006 Cholesterol Screening (Lipid Panel) 05/02/2029 05/02/2024, 10/25/2022 Pneumococcal Vaccine: 50+ Years Completed 06/01/2016, 09/18/2008 HIB Vaccines Aged Out No longer eligi ble based on patient's age to complete this topic HPV Vaccines Aged Out No longer eligi ble based on patient's age to complete this topic Hepatitis A Vaccines Aged Out No long er eligible based on patient's age to complete this topic Hepatitis B Vaccines Aged Out No long er eligible based on patient's age to complete this topic IPV Vaccines Aged Out No longer eligi ble based on patient's age to complete this topic MMR Vaccines Aged Out No longer eligi ble based on patient's age to complete this topic Meningococcal ACWY Vaccine Aged Out N o longer eligible based on patient's age to complete this topic Meningococcal B Vacine Aged Out No lo nger eligible based on patient's age to complete this topic RSV Immunization Patients Under 20 months Aged Out No longer eligible based on patient's age to complete this topic Varicella Vaccines Aged Out No longer eligible based on patient's age to complete this topic Procedures Procedure Name Priority Date/Time Associated Diagnosis Comments VITAMIN D 25 HYDROXY Routine 08/12/2024 11:52 AM EST Pure hypercholesterolemi a Weight loss Hypertension, unspecified type Controlled type 2 diabetes mellitus without complication, unspecified whether [employer] [place] insulin use ([facility]) Vitamin D deficiency HEMOGLOBIN A1C Routine 08/12/2024 11:52 AM EST Pure hypercholesterolemi a Weight loss Hypertension, unspecified type Controlled type 2 diabetes mellitus without complication, unspecified whether intermediate insulin use ([facility]) Vitamin D deficiency THYROID STIMULATING HORMONE Routine 08/12/2024 11:52 AM EST Pure hypercholesterolemi a Weight loss Hypertension, unspecified type Controlled type 2 diabetes mellitus without complication, unspecified whether intermediate insulin use ([facility]) Vitamin D deficiency COMPREHENSIVE METABOLIC PANEL Routine 08/12/2024 11:52 AM EST Pure hypercholesterolemi a Weight loss Hypertension, unspecified type Controlled type 2 diabetes mellitus without complication, unspecified whether intermediate insulin use ([facility]) Vitamin D deficiency COMPLETE BLOOD COUNT Routine 08/12/2024 11:52 AM EST Pure hypercholesterolemi a Weight loss Hypertension, unspecified type Controlled type 2 diabetes mellitus without complication, unspecified whether [employer] [place] insulin use ([facility]) Vitamin D deficiency EXTERNAL DIABETIC RETINA EYE EXAM 08/06/2024 MICROALBUMIN CREATININE URINE RATIO Routine 05/02/2024 1:55 PM EST Atherosclerosis of [place] coronary artery of [place] heart without angina pectoris Controlled type 2 diabetes mellitus without complication, without long-term current use of insulin ([facility]) LIPID PANEL WITH REFLEX TO DIRECT LDL Routine 05/02/2024 1:55 PM EST Atherosclerosis of [place] coronary artery of [place] heart without angina pectoris Controlled type 2 diabetes mellitus without complication, without long-term current use of insulin ([facility]) from Last 3 Months or Most Recently Relevant to Health Maintenance Results * Vitamin D 25 hydroxy (08/12/2024 11:52 AM EST) [facility] Vit D, 25-Hydroxy 58.7 30.0 - 80.0 ng/mL LAB CHEMISTRY METHOD 08/12/2024 2:25 PM EST [facility] Blood Venous blood specimen / Unknown Venipuncture / Unknown 08/12/2024 11:52 AM EST 08/12/2024 11:56 AM EST us Shaq [facility] [place] [facility] BLOOD ORDERABLES Fin al Result [facility] [address] [place] [address], [place] [phone] * (ABNORMAL) Complete blood count (08/12/2024 11:52 AM EST) [facility] WBC 11.9(H) 4.8 - 10.8 K/mcL LAB HEMETOLOGY METHOD 08/12/2024 2:17 PM [facility] RBC 4.40(L) 4.50 - 5.50 M/mcL LAB HEMETOLOGY METHOD 08/12/2024 2:17 PM [facility] Hemoglobin 13.0(L) 13.5 - 17.5 g/dL LAB HEMETOLOGY METHOD 08/12/2024 2:17 PM [facility] Hematocrit 41.6(L) 42.0 - 54.0 % LAB HEMETOLOGY METHOD 08/12/2024 2:17 PM [facility] MCV 95.6 79.0 - 98.0 FL LAB HEMETOLOGY METHOD 08/12/2024 2:17 PM [facility] MCH 29.9 27.0 - 32.0 pcg LAB HEMETOLOGY METHOD 08/12/2024 2:17 PM [facility] MCHC 31.3(L) 32.0 - 37.0 g/dL LAB HEMETOLOGY METHOD 08/12/2024 2:17 PM EST [facility] RDW 13.9 11.0 - 15.0 % LAB HEMETOLOGY METHOD 08/12/2024 2:17 PM [facility] Platelets 375 130 - 400 K/mcL LAB HEMETOLOGY METHOD 08/12/2024 2:17 PM EST [facility] MPV 10.3 7.0 - 11.0 FL LAB HEMETOLOGY METHOD 08/12/2024 2:17 PM EST [facility] NRBC 0.0 <1.0 % LAB HEMETOLOGY METHOD 08/12/2024 2:17 PM [facility] NRBC Absolute 0.00 <0.10 K/mcL LAB HEMETOLOGY METHOD 08/12/2024 2:17 PM EST [facility] Blood Venous blood specimen / Unknown Venipuncture / Unknown 08/12/2024 11:52 AM EST 08/12/2024 11:56 AM EST us Shaq [facility] [place] [facility] [facility] BLOOD ORDERABLES Fin al Result Performing Organization Address City/[facility] Co de Phone Number [facility] [address] [place] [address], * Thyroid stimulating hormone (08/12/2024 11:52 AM EST) TSH 3.81 0.40 - 4.00 mcIU/mL LAB CHEMISTRY METHOD 08/12/2024 2:26 PM EST [facility] Blood Venous blood specimen / Unknown Venipuncture / Unknown 08/12/2024 11:52 AM EST 08/12/2024 11:56 AM EST us Shaq [facility] [place] [facility] [facility] BLOOD ORDERABLES Fin al Result [facility] [address] [place] [address], * (ABNORMAL) Hemoglobin A1c (08/12/2024 11:52 AM EST) Pathologist [facility] Hemoglobin A1C 7.7(H) <6.5 % LAB CHEMISTRY METHOD 08/12/2024 8:56 PM EST [facility] Mean Bld Glu Estim. 174 mg/dL LAB CHEMISTRY METHOD 08/12/2024 8:56 PM [facility] Blood Venous blood specimen / Unknown Venipuncture / Unknown 08/12/2024 11:52 AM EST 08/12/2024 11:56 AM EST Shaq [facility] [place] [facility] [facility] BLOOD ORDERABLES Fin al Result Performing Organization Address [facility]/ZIP Co de Phone Number [facility] [address] [place] [address], * (ABNORMAL) Comprehensive metabolic panel (08/12/2024 11:52 AM EST) [facility] Sodium 138 133 - 145 mmol/L LAB CHEMISTRY METHOD 08/12/2024 2:31 PM [facility] Potassium 4.7 3.5 - 5.5 mmol/L LAB CHEMISTRY METHOD 08/12/2024 2:31 PM [facility] Chloride 105 96 - 110 mmol/L LAB CHEMISTRY METHOD 08/12/2024 2:31 PM [facility] CO2 24 21 - 32 mmol/L LAB CHEMISTRY METHOD 08/12/2024 2:31 PM [facility] Anion Gap 9 3 - 11 LAB CHEMISTRY METHOD 08/12/2024 2:31 PM [facility] Glucose 209(H) 70 - 100 mg/dL LAB CHEMISTRY METHOD 08/12/2024 2:31 PM [facility] BUN 20 5 - 25 mg/dL LAB CHEMISTRY METHOD 08/12/2024 2:31 PM [facility] Creatinine 1.11 0.70 - 1.30 mg/dL LAB CHEMISTRY METHOD 08/12/2024 2:31 PM [facility] eGFR 67 >=60 mL/min/1. 73m2 LAB CHEMISTRY METHOD 08/12/2024 2:31 PM [facility] Comment:Calculation based on the??Chronic Kidney Disease Epidemiology Collaboration (CKD-EPI) equation refit??without adjustment for race. BUN/Creatinine Ratio 18.0 LAB CHEMISTRY METHOD 08/12/2024 2:31 PM [facility] Calcium 10.6(H) 8.5 - 10.5 mg/dL LAB CHEMISTRY METHOD 08/12/2024 2:31 PM [facility] AST (SGOT) 31 10 - 42 unit/L LAB CHEMISTRY METHOD 08/12/2024 2:31 PM [facility] ALT (SGPT) 33 10 - 60 unit/L LAB CHEMISTRY METHOD 08/12/2024 2:31 PM [facility] Alkaline Phosphatase 113 42 - 121 unit/L LAB CHEMISTRY METHOD 08/12/2024 2:31 PM [facility] Total Protein 7.0 6.0 - 8.0 g/dL LAB CHEMISTRY METHOD 08/12/2024 2:31 PM [facility] Albumin 3.6 3.2 - 5.0 g/dL LAB CHEMISTRY METHOD 08/12/2024 2:31 PM [facility] Total Bilirubin 0.7 0.0 - 1.4 mg/dL LAB CHEMISTRY METHOD 08/12/2024 2:31 PM [facility] Blood Venous blood specimen / Unknown Venipuncture / Unknown 08/12/2024 11:52 AM EST 08/12/2024 11:56 AM EST Shaq DE LA VEGA LAB BLOOD ORDERABLES Fin al Result Performing Organization Address City/[facility]/ZIP Co de Phone Number [facility] [address] [place] [address], [place] [phone] * External Diabetic Retina Eye Exam Report (08/06/2024) Anatomical Region Laterality Modality Ultrasound Provider [facility] IMG US PROCEDURES Final Result * (ABNORMAL) Lipid panel with reflex to direct LDL (05/02/2024 1:55 PM EST) Cholesterol 117 0 - 200 mg/dL LAB CHEMISTRY METHOD 05/02/2024 5:55 PM EST [facility] Triglycerides 197(H) 0 - 150 mg/dL LAB CHEMISTRY METHOD 05/02/2024 5:55 PM EST [facility] HDL 32(L) >=40 mg/dL LAB CHEMISTRY METHOD 05/02/2024 5:55 PM EST [facility] LDL Calculated 46 0 - 100 mg/dL LAB CHEMISTRY METHOD 05/02/2024 5:55 PM EST [facility] VLDL Cholesterol Avtar 39.4 mg/dL LAB CHEMISTRY METHOD 05/02/2024 5:55 PM EST [facility] Non HDL Chol. (LDL+VLDL) 85 <145 mg/dL LAB CHEMISTRY METHOD 05/02/2024 5:55 PM EST [facility] Chol/HDL Ratio 3.7 0.0 - 4.4 LAB CHEMISTRY METHOD 05/02/2024 5:55 PM EST [facility] Blood Venous blood specimen / Unknown Venipuncture / Unknown 05/02/2024 1:55 PM EST 05/02/2024 1:55 PM EST Teresa Druan MD LAB BLOOD ORDERABLES Final Resul t Performing Organization Address City/[facility]/ZIP Co de Phone Number [facility] [address] [place] [address], * Microalbumin creatinine urine ratio (05/02/2024 1:55 PM EST) Creatinine, Urine 120.0 mg/dL LAB CHEMISTRY METHOD 05/02/2024 6:32 PM EST [facility] Microalb, Ur 5.2 0.0 - 29.0 mg/L LAB CHEMISTRY METHOD 05/02/2024 6:32 PM EST [facility] Microalb/Creat Ratio 4 <30 mg/g creat LAB CHEMISTRY METHOD 05/02/2024 6:32 PM EST [facility] Urine Urine specimen obtained by clean catch procedure / Unknown Non-blood Collection / Unknown 05/02/2024 1:55 PM EST 05/02/2024 1:55 PM EST us Teresa Duran MD LAB URINE ORDERABLES Final Resul t [facility] [address] [place] [address], from Last 3 Months or Most Recently Relevant to Health Maintenance [facility] Advance Directives Documents on File Type Date Recorded Patient Overnight Stocker Expl anation Health Care Decision (hx) 10/13/2017 AD ANDREA DIRECTIVE Health Care Decision (hx) 10/13/2017 AD ANDREA DIRECTIVE Care Teams Cabbage Salter Relationship Specialty Start Date End Date Teresa Duran MD [address] [place] [address] PCP - General 08/24/00
--- OUTSIDE RECORDS SUMMARY | 2024-08-22 15:18 | XMS_ITS | Encounter Summary ---
Author Organization [facility] Address [address] [place] [address] Care Team Providers Care Senior Qa Automation Engineer Name Role Phone Teresa Duran MD Primary Care Provider [phone] Reason for Referral * Consultation (Routine) - Authorized Specialty Diagnoses / Procedures Referred By Isai puente Referred To Contact Physical Therapy Diagnoses At risk for falls Shaq Kunz PA [address] [place] [id number] Phone: tel: fax: Referral ID Status Reason Start Date Expiration Date Visits Requested Visits Authorized [id number] Authorized Specialty Services Required 08/12/2024 08/12/2025 1 1 Scheduling Instructions Fatoumata PT Reason for Visit * Reason Comments Hypertension Diabetes 3 month follow upRBS in office is 298 but pt states he ate [place] muffin with peanut butter and jelly and a banana 1 hr ago. Encounter Details Date Type Department Care Team (Late st Contact Info) Description 08/12/2024 11:00 AM EST Office Visit Adult Medicine [address] [phone] Shaq Kunz PA [address] [place] [address] [phone] Pure hypercholesterolemia (Primary Dx); Hypertension, unspecified type; Controlled type 2 diabetes mellitus without complication, unspecified whether terminal operations manager insulin use (CMS/HCC); Vitamin D deficiency; At risk for falls Social History Tobacco Use Types Packs/Day Years Used Date Smoking Tobacco: Former Cigarettes 0 06/19/1962 - 06/19/1966 Smokeless Tobacco: Never Alcohol Use Standard Drinks/Week Comments No 0 (1 standard drink = 0.6 oz pur e alcohol) Sex and Gender Information Value Date Recorded Sex Assigned at Not on file Legal Sex Male 12:26 PM EST Gender Identity Not on file Sexual Orientation Not on file documented as of this encounter Last Filed Vital Signs Vital Sign Reading [...] Mass Index 23.99 08/12/2024 11:00 AM EST documented in this encounter Progress Notes * CEFERINO Saba - 08/12/2024 11:00 AM ESTAssociated Problem(s): Pure hypercholesterolemia Last lipid panel 3 months ago. Continue lipitor 80mg. Orders: Vitamin D 25 hydroxy; Future Hemoglobin A1c; Future Thyroid stimulating hormone; Future Comprehensive metabolic panel; Future Complete blood count; Future * CEFERINO Saba - 08/12/2024 11:00 AM ESTAssociated Problem(s): HTN (hypertension) HTN well controlled in office today. Continue metoprolol. Orders: Vitamin D 25 hydroxy; Future Hemoglobin A1c; Future Thyroid stimulating hormone; Future Comprehensive metabolic panel; Future Complete blood count; Future * CEFERINO Saba - 08/12/2024 11:00 AM ESTAssociated Problem(s): Controlled diabetes mellitus type II without complication ([facility]) Last A1c of 7.8%. will re-order. Continue metformin. Orders: Vitamin D 25 hydroxy; Future Hemoglobin A1c; Future Thyroid stimulating hormone; Future Comprehensive metabolic panel; Future Complete blood count; Future * CEFERINO Saba - 08/12/2024 11:00 AM ESTAssociated Problem(s): Vitamin D deficiency Will reassess vitamin D. Orders: Vitamin D 25 hydroxy; Future Hemoglobin A1c; Future Thyroid stimulating hormone; Future Comprehensive metabolic panel; Future Complete blood count; Future * CEFERINO Saba - 08/12/2024 11:00 AM EST PATIENT'S PCP: Teresa Duran MD LAST VISIT IN THIS DEPARTMENT: 05/17/2024 LAST VISIT WITH THIS PROVIDER: 05/06/2024 Kurt Henderson is a 83 y.o. (: 1940) male who presents today for: Chief Complaint Patient presents with Hypertension Diabetes 3 month follow up RBS in office is 298 but pt states he ate [place] muffin with peanut butter and jelly and a banana 1 hr ago. Assessment/Plan Assessment & Plan Pure hypercholesterolemia Last lipid panel 3 months ago. Continue lipitor 80mg. Orders: Vitamin D 25 hydroxy; Future Hemoglobin A1c; Future Thyroid stimulating hormone; Future Comprehensive metabolic panel; Future Complete blood count; Future Hypertension, unspecified type HTN well controlled in office today. Continue metoprolol. Orders: Vitamin D 25 hydroxy; Future Hemoglobin A1c; Future Thyroid stimulating hormone; Future Comprehensive metabolic panel; Future Complete blood count; Future Controlled type 2 diabetes mellitus without complication, unspecified whether terminal operations manager insulin use([facility]) Last A1c of 7.8%. will re-order. Continue metformin. Orders: Vitamin D 25 hydroxy; Future Hemoglobin A1c; Future Thyroid stimulating hormone; Future Comprehensive metabolic panel; Future Complete blood count; Future Vitamin D deficiency Will reassess vitamin D. Orders: Vitamin D 25 hydroxy; Future Hemoglobin A1c; Future Thyroid stimulating hormone; Future Comprehensive metabolic panel; Future Complete blood count; Future At risk for falls Referral to PT placed. Orders: Ambulatory referral to Physical Therapy and Athletic Training; Future F/u in 3 months with and [address] Duran. No follow-ups on file. Subjective 83-year-old gentleman here with family as usual, presenting for evaluation of his medical conditions. He is taking medications as prescribed. He is still unsteady at times, but is managing reasonably well with a walker at home. Family and pt are both interested in getting him for physical therapy. He has no complaints or concerns. Review of Systems Constitutional: Negative for chills, diaphoresis and fever. HENT: Negative for ear pain and sore throat. Eyes: Negative for discharge. Respiratory: Negative for cough and shortness of breath. Cardiovascular: Negative for chest pain, palpitations and leg swelling. Gastrointestinal: Negative for abdominal pain. Endocrine: Negative for polyuria. Genitourinary: Negative for difficulty urinating. Musculoskeletal: Negative for gait problem. Skin: Negative for rash. Neurological: Negative for syncope and weakness. The following portions of the patient's chart were reviewed in this encounter and updated as appropriate: Tobacco Allergies Meds Problems Med Hx Surg Hx Fam Hx Objective Visit Vitals BP 100/54 Pulse 60 Temp 36.4 ??C (97.5 ??F) (Temporal) Resp 16 Ht 1.727 m (68 ) Wt 71.6 kg (157 lb 12.8 oz) SpO2 96% BMI 23.99 kg/m?? Smoking Status Former BSA 1.85 m?? SpO2: 96 % BP Readings from Last 3 Encounters: 08/12/24 100/54 05/06/24 108/60 03/05/24 108/60 Wt Readings from Last 3 Encounters: 08/12/24 71.6 kg (157 lb 12.8 oz) 05/28/24 72.6 kg (160 lb) 05/06/24 72.6 kg (160 lb) Physical Exam Constitutional: General: He is not in acute distress. Appearance: Normal appearance. He is not ill-appearing. Eyes: Conjunctiva/sclera: Conjunctivae normal. Pupils: Pupils are equal, round, and reactive to light. Cardiovascular: Rate and Rhythm: Normal rate and regular rhythm. Heart sounds: No murmur heard. Pulmonary: Effort: Pulmonary effort is normal. Breath sounds: Normal breath sounds. No wheezing, rhonchi or rales. Abdominal: General: Bowel sounds are normal. There is no distension. Palpations: Abdomen is soft. There is no mass. Hernia: No hernia is present. Musculoskeletal: General: Normal range of motion. Cervical back: Normal range of motion and neck supple. Right lower leg: No edema. Left lower leg: No edema. Skin: General: Skin is warm and dry. Capillary Refill: Capillary refill takes less than 2 seconds. Coloration: Skin is not jaundiced. Findings: No bruising, erythema or rash. Neurological: General: No focal deficit present. Mental Status: He is alert and oriented to person, place, and time. Mental status is at baseline. Psychiatric: Mood and Affect: Mood normal. Behavior: Behavior normal. Thought Content: Thought content normal. Judgment: Judgment normal. Allergies Allergen Reactions Tamsulosin Bradycardic Timolol Maleate slow heart rate Beta-Blockers (Beta-Adrenergic Blocking Agts) Current Outpatient Medications Medication Instructions alendronate (FOSAMAX) 70 mg tablet Take 1 Tablet by mouth every 7 days. alfuzosin (UROXATRAL) 10 mg 24 hr tablet Take 10 mg by mouth. ammonium lactate (LAC-HYDRIN) 12 % lotion Apply to toenails nightly to help soften toenails removedthickness aspirin 81 mg EC tablet Take 2 Tabs by mouth daily. atorvastatin (LIPITOR) 80 mg tablet TAKE ONE TABLET BY MOUTH EVERY DAY bimatoprost (LUMIGAN) 0.01 % ophthalmic drops apply 1 Drop to the eye daily. In both eyes blood-glucose meter kit BLOOD GLUCOSE MONITORING SUPPL (ONE TOUCH ULTRA 2) W/DEVICE KIT: Use to test blood sugar once daily buPROPion SR (WELLBUTRIN SR) 150 mg 12 hr tablet Take 1 Tablet by mouth daily. chlorhexidine (HIBICLENS) 4 % external liquid Clean feet in shower every morning with soap of the skin and nails stop using if skin gets too dry as an antifungal soap cholecalciferol (VITAMIN D-3) 50 mcg (2,000 unit) tablet TAKE 1 TABLET BY MOUTH DAILY. clotrimazole (LOTRIMIN) 1 % cream Apply to skin and toenails daily for 12 weeks finasteride (PROSCAR) 5 mg tablet TAKE ONE TABLET BY MOUTH EVERY DAY folic acid (FOLVITE) 1 mg tablet TAKE ONE TABLET BY MOUTH EVERY DAY isosource 1.5 Avtar/mL (Ensure Plus with Fiber) 237 mL, oral, Daily lamoTRIgine (LaMICtal) 25 mg tablet 2 (two) times a day. lancets (CampaignerCRMTouch Delica Plus Lancet) 33 gauge USE 1 LANCET TOPICALLY DAILY melatonin 1 mg tablet Take 1 mg by mouth every night at bedtime. melatonin 5 mg, Nightly metFORMIN XR (GLUCOPHAGE-XR) 500 mg 24 hr tablet TAKE TWO TABLETS BY MOUTH DAILY (WITH BREAKFAST) metoprolol tartrate (LOPRESSOR) 25 mg tablet Take 12.5 mg by mouth 2 times daily. nitroglycerin (NITROSTAT) 0.[address] 0.4 mg under the tongue every 5 minutes as needed. OLANZapine (ZyPREXA) 10 mg tablet Take 1 Tablet by mouth at bedtime. CampaignerCRMTouch Ultra Test test strip USE TO TEST BLOOD SUGAR ONCE DAILY pantoprazole (PROTONIX) 40 mg, oral, Daily tolnaftate (TINACTIN) 1 % external solution Apply topically to toenails Vitamin B-12 1,000 mcg, oral, Daily IMAGING/LABORATORY: None CEFERINO Saba [facility] [address] documented in this encounter Plan of Treatment Upcoming Encounters Date Type Department Care Team (Late st Contact Info) Description 08/26/2024 1:00 PM EDT Office Visit Orthopedic Surgery - [place] [address] [phone] Flex Carroll, DPM [address] [id number] 11/04/2024 11:00 AM EDT Office Visit [address] [phone] Shaq Kunz PA [address] [place], [place] 03/17/2025 11:00 AM EDT Office Visit [address] [phone] Teresa Duran MD [address] [place], [place] Scheduled Referrals Name Type Priority Associated Diagnoses Order Schedule Ambulatory referral to Physical Therapy and Athletic Training Outpatient Referral Routine At risk for falls 1 Occurrences starting 08/12/2024 until 08/12/2025 documented as of this encounter Results * (ABNORMAL) Complete blood count (08/12/2024 11:52 AM EST) WBC 11.9(H) 4.8 - 10.8 K/[facility] LAB HEMETOLOGY METHOD 08/12/2024 2:17 PM [facility] RBC 4.40(L) 4.50 - 5.50 M/[facility] LAB HEMETOLOGY METHOD 08/12/2024 2:17 PM [facility] Hemoglobin 13.0(L) 13.5 - 17.5 g/dL LAB HEMETOLOGY METHOD 08/12/2024 2:17 PM [facility] Hematocrit 41.6(L) 42.0 - 54.0 % LAB HEMETOLOGY METHOD 08/12/2024 2:17 PM EST [facility] MCV 95.6 79.0 - 98.0 FL LAB HEMETOLOGY METHOD 08/12/2024 2:17 PM EST [facility] MCH 29.9 27.0 - 32.0 pcg LAB HEMETOLOGY METHOD 08/12/2024 2:17 PM EST [facility] MCHC 31.3(L) 32.0 - 37.0 g/dL LAB HEMETOLOGY METHOD 08/12/2024 2:17 PM EST [facility] RDW 13.9 11.0 - 15.0 % LAB HEMETOLOGY METHOD 08/12/2024 2:17 PM EST [facility] Platelets 375 130 - 400 K/mcL LAB HEMETOLOGY METHOD 08/12/2024 2:17 PM EST [facility] MPV 10.3 7.0 - 11.0 FL LAB HEMETOLOGY METHOD 08/12/2024 2:17 PM EST [facility] NRBC 0.0 <1.0 % LAB HEMETOLOGY METHOD 08/12/2024 2:17 PM EST [facility] NRBC Absolute 0.00 <0.10 K/mcL LAB HEMETOLOGY METHOD 08/12/2024 2:17 PM EST [facility] Blood Venous blood specimen / Unknown Venipuncture / Unknown 08/12/2024 11:52 AM EST 08/12/2024 11:56 AM EST us Shaq DE LA VEGA LAB BLOOD ORDERABLES Fin al Result [facility] [address] [place] [address], * (ABNORMAL) Comprehensive metabolic panel (08/12/2024 11:52 AM EST) [facility] Sodium 138 133 - 145 mmol/L LAB CHEMISTRY METHOD 08/12/2024 2:31 PM [facility] Potassium 4.7 3.5 - 5.5 mmol/L LAB CHEMISTRY METHOD 08/12/2024 2:31 PM [facility] Chloride 105 96 - 110 mmol/L LAB CHEMISTRY METHOD 08/12/2024 2:31 PM [facility] CO2 24 21 - 32 mmol/L LAB CHEMISTRY METHOD 08/12/2024 2:31 PM [facility] Anion Gap 9 3 - 11 LAB CHEMISTRY METHOD 08/12/2024 2:31 PM [facility] Glucose 209(H) 70 - 100 mg/dL LAB CHEMISTRY METHOD 08/12/2024 2:31 PM [facility] BUN 20 5 - 25 mg/dL LAB CHEMISTRY METHOD 08/12/2024 2:31 PM [facility] Creatinine 1.11 0.70 - 1.30 mg/dL LAB CHEMISTRY METHOD 08/12/2024 2:31 PM [facility] eGFR 67 >=60 mL/min/1. 73m2 LAB CHEMISTRY METHOD 08/12/2024 2:31 PM [facility] Comment:Calculation based on the??Chronic Kidney Disease Epidemiology Collaboration (CKD-EPI) equation refit??without adjustment for race. BUN/Creatinine Ratio 18.0 LAB CHEMISTRY METHOD 08/12/2024 2:31 PM [facility] Calcium 10.6(H) 8.5 - 10.5 mg/dL LAB CHEMISTRY METHOD 08/12/2024 2:31 PM [facility] AST (SGOT) 31 10 - 42 unit/L LAB CHEMISTRY METHOD 08/12/2024 2:31 PM [facility] ALT (SGPT) 33 10 - 60 unit/L LAB CHEMISTRY METHOD 08/12/2024 2:31 PM [facility] Alkaline Phosphatase 113 42 - 121 unit/L LAB CHEMISTRY METHOD 08/12/2024 2:31 PM [facility] Total Protein 7.0 6.0 - 8.0 g/dL LAB CHEMISTRY METHOD 08/12/2024 2:31 PM EST [facility] Albumin 3.6 3.2 - 5.0 g/dL LAB CHEMISTRY METHOD 08/12/2024 2:31 PM [facility] Total Bilirubin 0.7 0.0 - 1.4 mg/dL LAB CHEMISTRY METHOD 08/12/2024 2:31 PM [facility] Blood Venous blood specimen / Unknown Venipuncture / Unknown 08/12/2024 11:52 AM EST 08/12/2024 11:56 AM EST Shaq DE LA VEGA LAB BLOOD ORDERABLES Fin al Result Performing Organization Address [facility]/ZIP Co de Phone Number [facility] [address] [place] [address], * Thyroid stimulating hormone (08/12/2024 11:52 AM EST) Pathologist [facility] TSH 3.81 0.40 - 4.00 mcIU/mL LAB CHEMISTRY METHOD 08/12/2024 2:26 PM [facility] Blood Venous blood specimen / Unknown Venipuncture / Unknown 08/12/2024 11:52 AM EST 08/12/2024 11:56 AM EST Shaq DE LA VEGA LAB BLOOD ORDERABLES Fin al Result [facility] [address] [place] [address], [place] [phone] * (ABNORMAL) Hemoglobin A1c (08/12/2024 11:52 AM EST) Hemoglobin A1C 7.7(H) <6.5 % LAB CHEMISTRY METHOD 08/12/2024 8:56 PM EST [facility] Mean Bld Glu Estim. 174 mg/dL LAB CHEMISTRY METHOD 08/12/2024 8:56 PM EST [facility] Blood Venous blood specimen / Unknown Venipuncture / Unknown 08/12/2024 11:52 AM EST 08/12/2024 11:56 AM EST Shaq DE LA VEGA LAB BLOOD ORDERABLES Fin al Result Performing Organization Address City/[facility]/ZIP Co de Phone Number [facility] [address] [place] [address], * Vitamin D 25 hydroxy (08/12/2024 11:52 AM EST) Vit D, 25-Hydroxy 58.7 30.0 - 80.0 ng/mL LAB CHEMISTRY METHOD 08/12/2024 2:25 PM EST [facility] Blood Venous blood specimen / Unknown Venipuncture / Unknown 08/12/2024 11:52 AM EST 08/12/2024 11:56 AM EST Shaq DE LA VEGA LAB BLOOD ORDERABLES Fin al Result Performing Organization Address [facility] de Phone Number [facility] [address] [place] [address], documented in this encounter Visit Diagnoses Diagnosis Pure hypercholesterolemia- Primary Hypertension, unspecified type Controlled type 2 diabetes mellitus without complication, unspecified whether terminal operations manager insulin use ([facility]) Vitamin D deficiency At risk for falls Personal history of fall documented in this encounter Care Teams Senior Qa Automation Engineer Relationship Specialty Start Date End Date Teresa Duran MD [address] [place] [id number] PCP - General 08/24/00 documented as of this encounter
--- OUTSIDE RECORDS SUMMARY | 2024-08-22 15:18 | XMS_ITS | Clinical Summary ---
Author Organization [facility] Address [address] [place] [address] Care Team Providers Care Medical Billing Coder Name Role Phone Teresa Duran MD Primary Care Provider [phone] Allergies No known active allergies Medications Medication Sig Dispensed Refills Start Date End Date Status aspirin EC 81 MG tablet Take 81 mg by mouth daily. 0 Active atorvastatin (LIPITOR) tablet 80 mg Take 80 mg by mouth daily. 0 Active bimatoprost (LUMIGAN) 0.01 % ophthalmic drops 0 Active nitroglycerin (NITROSTAT) 0.[address] 0.4 mg under the tongue every 5 (five) minutes as needed for chest pain. 0 Active finasteride (PROSCAR) 5 MG tablet Take 5 mg by mouth daily. 0 Active metoprolol tartrate (LOPRESSOR) 25 MG tablet Take by mouth 2 (two) times a day. 0 Active lamoTRIgine (LaMICtal) 25 MG tablet Take 50 mg by mouth daily. 0 Active alendronate (FOSAMAX) tablet 70 mg Take 70 mg by mouth every 7 days. Take with water on empty stomach/Nothing by mouth and do not lie down for next 30 minutes 0 Active buPROPion (WELLBUTRIN) 100 MG tablet Take 100 mg by mouth 2 (two) times a day. 0 Active metFORMIN (GLUCOPHAGE) tablet 500 mg Take 500 mg by mouth 2 (two) times a day with meals. 0 Active pantoprazole (PROTONIX) 40 MG tablet Take 40 mg by mouth every morning on an empty stomach. 0 Active LORazepam (ATIVAN) 0.5 MG tablet Take 0.5 mg by mouth every 6 (six) hours as needed. 0 Active alfuzosin (UROXATRAL) 10 MG 24 hr tablet Take 10 mg by mouth daily. 0 Active Melatonin 1 MG TABS tablet Take 1 mg by mouth every night at bedtime. 0 Active OLANZapine (ZyPREXA) 10 MG tablet Take 10 mg by mouth every night at bedtime. 0 Active Active Problems No known active problems Social History Tobacco Use Types Packs/Day Years Used Date Smoking Tobacco: Former Smokeless Tobacco: Never Alcohol Use Standard Drinks/Week Comments No 0 (1 standard drink = 0.6 oz pur e alcohol) Sex and Gender Information Value Date Recorded Sex Assigned at Not on file Gender Identity Not on file Sexual Orientation Not on file Job Start Date Occupation Industry Not on file Not on file Not on file Last Filed Vital Signs Vital Sign Reading Time Taken Comments Blood Pressure 133/69 10/25/2021 2:05 PM EDT Pulse 54 10/25/2021 2:05 PM EDT Temperature 36.6 ??C (97.9 ??F) 10/25/2021 2:05 PM ED T Respiratory Rate - - Oxygen Saturation 97% 10/25/2021 2:05 PM EDT Inhaled Oxygen Concentration - - Weight 76.2 kg (168 lb) 10/25/2021 2:05 PM EDT Height 165.1 cm (5' 5 ) 10/25/2021 2:05 PM EDT Body Mass Index 27.96 10/25/2021 2:05 PM EDT Plan of Treatment Health Maintenance Due Date Last Done Comments Depression Screening 1954 Preventative Health Evaluation 1960 Shingrix-Zoster Vaccine (1 of 2) 1992 Fall Risk Assessment 11/09/2007 DTap / Tdap / Td (2 - Td or Tdap) 08/28/2016 08/28/2006 RSV Adult > 60+ Yrs or (1 - 1-dose 75+ series) 2017 COVID-19 Vaccine ( - 2023- season) 2024 08/09/2020, 07/21/2020 Influenza Vaccine (#1) 2024 0, 04/09/2019, 03/19/2018, Additional history exists Pneumococcal Vaccine Completed 06/01/2016, 09/19/19 09 Hepatitis B Vaccines Aged Out No long er eligible based on patient's age to complete this topic RSV Ped < 20 months Aged Out No longe r eligible based on patient's age to complete this topic Care Teams Medical Billing Coder Relationship Specialty Start Date End Date Teresa Duran MD PCP - General Internal Medicine 04/28/20
== END 2024-08-22 13:20 | disposition home or self-care (01) ==
PROVIDERS: PCP Internal Medicine Infectious Disease; Visit Provider Internal Medicine Cardiovascular Disease
DX: I25.10 Atherosclerotic heart disease of native coronary artery without angina pectoris (principal); Z95.0 Presence of cardiac pacemaker
CPT/HCPCS: 93280; 99214; G2211

== ENCOUNTER → 2024-08-22 12:42 | Outpatient (BNVA) | payer MEDICARE, SELFPAY | PROVIDERS: PCP Internal Medicine Infectious Disease; Visit Provider Internal Medicine Cardiovascular Disease | DX: I25.10 Atherosclerotic heart disease of native coronary artery without angina pectoris (principal); Z45.018 Encounter for adjustment and management of other part of cardiac pacemaker | CPT/HCPCS: 93280; 99212 ==

== ENCOUNTER 2024-11-22 23:26 | Emergency (ER) | payer MEDICARE, SELFPAY ==
[2024-11-22 23:28] VITALS: BP 122/76; PULSE 78; O2SAT 93
[2024-11-22 23:38] VITALS: BP 101/74; PULSE 106; RESP 16; TEMP 36.5; O2SAT 92; BMI 25.6
--- NOTE | 2024-11-22 23:44 | PC.NURSE ---
Pt a&ox3, no signs of distress. Pt denies pain at this time Pt has a wound on the right arm Plan of care ongoing.
--- OUTSIDE RECORDS SUMMARY | 2024-11-23 00:07 | XMS_ITS | Clinical Summary ---
Author Organization [facility] Address [address] [place] [address] Care Team Providers Care [employer] Patrolman Name Role Phone Teresa Duran MD Primary Care Provider [phone] Allergies No known active allergies Medications Medication [...] 1-dose 75+ series) 2017 COVID-19 Vaccine ( season) 2024 08/09/2020, 07/21/2020 Influenza Vaccine (Season Ended) 2025 03/13/2020, 04/09/2019, 03/19/2018, Additional history exists Pneumococcal Vaccine Completed 06/01/2016, 09/19/19 09 Hepatitis B Vaccines Aged Out No long er eligible based on patient's age to complete this topic RSV Ped < 20 months Aged Out No longe r eligible based on patient's age to complete this topic Care Teams [employer] Relationship Specialty Start Date End Date Teresa Duran MD PCP - General Internal Medicine 04/28/20
--- NOTE | 2024-11-23 00:41 | PC.NURSE ---
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
--- NOTE | 2024-11-23 00:54 | PC.NURSE ---
Provider Gisell notified and aware of pts POC of 233 Plan of care ongoing.
[2024-11-23 00:55] LABS: Glucose, Whole Blood 233 mg/dL (60-115)
[2024-11-23 01:52] LABS: MANUAL DIFF FLAG NO
[2024-11-23 01:53] LABS: Basophils Percent Auto 0.2 % (0-2); Eosinophils Absolute Auto 0.1 X10*3/uL (0.0-0.4); Eosinophils Percent Auto 0.5 % (0-4); Hematocrit 35.5 % (42.0-52.0); Hemoglobin 12.1 g/dl (14.0-18.0); Imm Gran Abs Auto 0.03 X10*3/uL (0.00-0.03); Imm Gran Pct Auto 0.3 % (0.0-0.4); Lymphocytes Percent Auto 9.8 % (20-40); Mean Corpuscular HGB Conc 34.1 g/dl (31.0-36.0); Mean Corpuscular Hemoglobin 29.7 pg (27.0-33.0); Mean Platelet Volume 8.8 fL (9.4-12.4); Monocytes Absolute Auto 0.9 X10*3/uL (0.1-1.2); Monocytes Percent Auto 8.6 % (2-11); Neutrophils Absolute Auto 8.1 x10*3/uL (2.0-8.3); Neutrophils Percent Auto 80.6 % (45-73); Platelet Count 348 X10*3/uL (160-400); Red Blood Count 4.08 X10*6/uL (4.60-5.80); Red Cell Distribution Width 13.6 % (11.0-16.0); White Blood Count 10.1 X10*3/uL (4.8-10.8)
[2024-11-23 02:15] LABS: Alanine Aminotransferase 22 U/L (0-40); Albumin Level 3.7 g/dL (3.5-5.0); Anion Gap 13 (12-20); Aspartate Amino Transferase 40 U/L (5-37); Bilirubin Total 0.5 mg/dL (0.0-1.0); Blood Urea Nitrogen 21 mg/dL (9-16); Calcium 10.3 mg/dL (8.4-10.2); Carbon Dioxide 25 mmol/L (22-29); Chloride 106 mmol/L (96-108); Creatinine Clr Calc Pharmacy 55.6; Estimated Glomerular Filt Rate > 60; Glucose Random 218 mg/dL (60-115); Magnesium 1.7 mg/dL (1.6-2.6); Potassium 4.6 mmol/L (3.3-5.1); Sodium 139 mmol/L (135-145); Total Protein 6.3 g/dL (6.5-8.0)
[2024-11-23 02:17] LABS: Appearance Urine Clear; Color Urine Yellow; Glucose Urine UA 500 mg/dL (Negative); Leukocyte Esterase Urine Negative (Negative); Nitrite Urine Negative (Negative); Urine Blood Negative (Negative); Urine Ketones Trace mg/dL (Negative); Urine Protein Negative (Neg-Trace)
[2024-11-23 02:31] LABS: Alkaline Phosphatase 103 U/L (39-117)
--- NOTE | 2024-11-23 03:11 | ED_ITS ---
HPI - General Adult General Chief complaint: Fall Stated complaint: FALL Time Seen by Provider: 11/23/24 00:37 Source: patient Limitations: no limitations History of Present Illness ED Provider: Myah Hendrickson PA-C HPI narrative: 84-year-old male with a history of hypertension, hyperlipidemia, diabetes, known coronary artery disease status post CABG, he is also status base pacemaker, bipolar disorder, gait instability who uses a walker at home to ambulate, clinical depression who presents with failure to thrive. Patient is present with the his daughter. The daughter explains that the patient has been depressed for years secondary to his numerous comorbidities, he began to decline after his CABG. He has sustained 2 falls today, secondary to his weakness. She explains that he is having progressive decline, worsening poor appetite, he sleeps 3/4 of the day. She states that he was assessed for potential dementia, and that it was determined that he did not have dementia. The family is still concerned that he may have dementia given his overall picture of failure to thrive. The patient has no physical concerns or complaints since his falls today. There was no head strike, no loss of consciousness. Related Data Home Medications ?Medication ?Instructions ?Recorded ?Confirmed bimatoprost 0.01 % eye drops 1 drp ophthalmic (eye) BEDTIME 05/28/20 08/22/24 bupropion HCl 150 mg 24 hr tablet, 150 mg PO DAILY 05/25/21 08/22/24 extended release cyanocobalamin (vitamin B-12) 1,000 mcg PO DAILY 06/09/22 08/22/24 1,000 mcg tablet (Vitamin B-12) folic acid 1 mg tablet 1 mg PO DAILY 06/09/22 08/22/24 metformin 500 mg tablet,extended 500 mg PO DAILY@0800 07/05/22 08/22/24 release 24 hr cholecalciferol (vitamin D3) 50 50 mcg PO DAILY 02/01/24 08/22/24 mcg (2,000 unit) tablet pantoprazole 40 mg tablet,delayed 40 mg PO DAILY@0630 02/01/24 08/22/24 release aspirin 81 mg tablet,delayed 162 mg PO DAILY 08/22/24 release (Adult Aspirin Regimen) melatonin 10 mg tablet 5 mg PO BEDTIME PRN insomnia 08/22/24 08/22/24 Previous Rx's ?Medication ?Instructions ?Recorded alendronate 70 mg tablet 70 mg PO SA 30 days #5 tabs 04/16/21 alfuzosin 10 mg tablet,extended 1 tab PO BEDTIME 90 days #90 tabs 04/16/21 release 24 hr atorvastatin 80 mg tablet 80 mg PO DAILY 90 days #90 tabs 04/16/21 finasteride 5 mg tablet 5 mg PO DAILY 30 days #30 tabs 04/16/21 lamotrigine 25 mg tablet 25 mg PO BID #60 tabs 04/16/21 olanzapine 10 mg tablet 10 mg PO BEDTIME 30 days #30 tabs 04/16/21 metoprolol tartrate 25 mg tablet 12.5 mg (1/2 x 25 mg) PO BID #90 04/10/24 tabs Allergies Allergy/AdvReac Type Severity Reaction Status Date / Time Penicillins Allergy Unknown Unknown Verified 11/22/24 23:40 metoprolol AdvReac Intermediate bradycardia Verified 11/22/24 23:40 timolol AdvReac Intermediate low bp Verified 11/22/24 23:40 tamsulosin [From Flomax] AdvReac Mild Diarrhea Verified 11/22/24 23:40 beta blockers AdvReac Hypotension Uncoded 11/22/24 23:40 Review of Systems 2 Review of Systems: Yes all other systems are reviewed and are negative Constitutional: Constitutional: Reports daytime sleepiness, Denies fatigue, Denies fever(s), Denies headache(s), Reports lethargy and Reports poor appetite ENT: Denies headache(s) and Denies neck pain Cardiovascular: Cardiovascular: Denies chest pain Gastrointestinal: Gastrointestinal: Denies abdominal pain, Denies diarrhea, Denies nausea and Denies vomiting Genitourinary: Genitourinary: Denies dysuria Musculoskeletal: Musculoskeletal: Denies back pain and Denies neck pain Neurologic: Denies headache(s) Endocrine: Endocrine: Denies fatigue PMFSH Past Medical History Attestation statement: The following information was validated with the patient. Medical History History of left breast cancer CAD (coronary artery disease) Cardiac pacemaker in situ Sick sinus syndrome HTN (hypertension) Diabetes Hyperlipidemia Surgical History Hx of cataract surgery Hx of mastectomy History of permanent cardiac pacemaker placement Hx of CABG Family History Family History Father CVD (cardiovascular disease) Mother CVD (cardiovascular disease) Brother CVD (cardiovascular disease) Sister Diabetes Son Diabetes Social History Social History Household Members: Spouse Housing: Apartment Do you presently have visiting nurse or other home services: No Alcohol intake: never Patient Tobacco Use Status: Former Tobacco user Tobacco use type: Cigarette Advance Directives: Yes Advance Directives on File: Yes Advance Directives Date on File: 03/17/21 service: No Sexual orientation: Straight/Heterosexual Physical Exam ED Vital Signs: Vital Signs - 24 hr 11/22/24 23:38 Temperature 97.7 F Pulse Rate 106 H Respiratory Rate 16 Blood Pressure 101/74 Pulse Oximetry 92 Oxygen Delivery Method Room Air BMI result Body Mass Index 25.6 Const Other: Alert Orientation/consciousness: oriented to person and oriented to place Resp Effort & Inspection: normal respiratory effort Cardio Other: normal peripheral perfusion Skin Other: warm dry no rash Neuro Other: able to ambulate with a walker, antalgic gait General: oriented to person, oriented to place, no focal motor deficits and CN's II-XI intact bilaterally Psych Other: pleasant, cooperative Medical Decision Making Medical Decision Making MDM Narrative: 84-year-old male with a history of hypertension, hyperlipidemia, diabetes, known coronary artery disease status post CABG, he is also status base pacemaker, bipolar disorder, gait instability who uses a walker at home to ambulate, clinical depression who presents with failure to thrive. Patient is present with the his daughter. The daughter explains that the patient has been depressed for years secondary to his numerous comorbidities, he began to decline after his CABG. He has sustained 2 falls today, secondary to his weakness. She explains that he is having progressive decline, worsening poor appetite, he sleeps 3/4 of the day. She states that he was assessed for potential dementia, and that it was determined that he did not have dementia. The family is still concerned that he may have dementia given his overall picture of failure to thrive. The patient has no physical concerns or complaints since his falls today. There was no head strike, no loss of consciousness. Problem: Bipolar, coronary artery disease, clinical depression History: Per patient's daughter I have considered the following differential diagnoses: Failure to thrive, dehydration, anemia, electrolyte abnormality, UTI Plan: The patient has been progressively declining, his symptoms over the past few days are not new. She wanted to be sure there was no underlying medical cause for his falling today. We will screen basic labs and a urinalysis. The patient is at his baseline mentation and ambulation status; we walked him with a walker, he did well. I have independently reviewed the following tests: Labs: No leukocytosis, not anemic, no electrolyte abnormality, urine not infected Lab Data 11/23/24 01:46 11/23/24 01:46 Labs: Lab Results 11/23/24 11/23/24 11/23/24 Range/Units 00:51 01:46 02:09 WBC 10.1 (4.8-10.8) X10*3/uL RBC 4.08 L (4.60-5.80) X10*6/uL Hgb 12.1 L (14.0-18.0) g/dl Hct 35.5 L (42.0-52.0) % MCV 87.0 (80.0-98.0) fL MCH 29.7 (27.0-33.0) pg MCHC 34.1 (31.0-36.0) g/dl RDW 13.6 (11.0-16.0) % Plt Count 348 D (160-400) X10*3/uL MPV 8.8 L (9.4-12.4) fL Immature Gran % (Auto) 0.3 (0.0-0.4) % Neut % (Auto) 80.6 H (45-73) % Lymph % (Auto) 9.8 L (20-40) % [place] % (Auto) 8.6 (2-11) % Eos % (Auto) 0.5 (0-4) % Baso % (Auto) 0.2 (0-2) % Lymph # (Auto) 1.0 L (1.2-4.9) X10*3/uL [place] # (Auto) 0.9 (0.1-1.2) X10*3/uL Eos # (Auto) 0.1 (0.0-0.4) X10*3/uL Baso # (Auto) 0.0 (0.0-0.2) X10*3/uL Abs Immat Gran (auto) 0.03 (0.00-0.03) X10*3/uL Absolute Neuts (auto) 8.1 (2.0-8.3) x10*3/uL Absolute Nucleated RBC 0.000 (0.0-0.012) X10*3/uL Nucleated RBC % (auto) 0.0 (0.0-0.2) /100WBC Sodium 139 (135-145) mmol/L Potassium 4.6 (3.3-5.1) mmol/L Chloride 106 (96-108) mmol/L Carbon Dioxide 25 (22-29) mmol/L Anion Gap 13 (12-20) BUN 21 H (9-16) mg/dL Creatinine 0.89 (0.5-1.4) mg/dL Estim Creat Clear Calc 55.6 Estimated GFR > 60 POC Glucose 233 H (60-115) mg/dL Random Glucose 218 H (60-115) mg/dL Calcium 10.3 H (8.4-10.2) mg/dL Magnesium 1.7 (1.6-2.6) mg/dL Total Bilirubin 0.5 (0.0-1.0) mg/dL AST 40 H (5-37) U/L ALT 22 (0-40) U/L Alkaline Phosphatase 103 (39-117) U/L Total Protein 6.3 L (6.5-8.0) g/dL Albumin 3.7 (3.5-5.0) g/dL Urine Color Yellow Urine Appearance Clear Urine pH 6.0 (5.0-9.0) Ur Specific [place] 1.020 (1.005-1.025) Urine Protein Negative (Neg-Trace) mg/dL Urine Glucose (UA) 500 H (Negative) mg/dL Urine Ketones Trace (Negative) mg/dL Urine Blood Negative (Negative) Urine Nitrite Negative (Negative) Ur Leukocyte Esterase Negative (Negative) Discharge Plan Discharge Clinical Impression: Depression, Adult failure to thrive Patient Disposition: Home, Self-Care Instructions: Failure to Thrive in Older Adults (ED), Depression in Older Adults (ED) Additional Instructions: all of the screening labs were normal, the urine is not infected. I recommend requesting a geriatric psychiatric evaluation to determine if your father is developing dementia. Prescriptions: No Action metoprolol tartrate 25 mg tablet 12.5 mg PO BID Qty: 90 3RF metformin 500 mg tablet extended release 24 hr 500 mg PO DAILY@0800 melatonin 10 mg tablet 5 mg PO BEDTIME PRN (Reason: insomnia) olanzapine 10 mg Tablet 10 mg PO BEDTIME 30 Days Qty: 30 0RF atorvastatin 80 mg tablet 80 mg PO DAILY 90 Days Qty: 90 3RF alendronate 70 mg tablet 70 mg PO SA 30 Days Qty: 5 0RF lamotrigine 25 mg tablet 25 mg PO BID Qty: 60 0RF finasteride 5 mg tablet 5 mg PO DAILY 30 Days Qty: 30 0RF alfuzosin 10 mg tablet extended release 24 hr 1 tab PO BEDTIME 90 Days Qty: 90 0RF cholecalciferol (vitamin D3) 50 mcg (2,000 unit) tablet 50 mcg PO DAILY pantoprazole 40 mg tablet,delayed release (DR/EC) 40 mg PO DAILY@0630 bimatoprost 0.01 % drops 1 drp ophthalmic (eye) BEDTIME bupropion HCl 150 mg tablet extended release 24 hr 150 mg PO DAILY folic acid 1 mg tablet 1 mg PO DAILY cyanocobalamin (vitamin B-12) [Vitamin B-12] 1,000 mcg tablet 1,000 mcg PO DAILY aspirin [Adult Aspirin Regimen] 81 mg tablet,delayed release (DR/EC) 162 mg PO DAILY Print Language: Monegasque
[2024-11-23 03:37] VITALS: BP 115/79; PULSE 111; RESP 14; TEMP 36.7; O2SAT 96
[2024-11-23 03:38] VITALS: BP 115/79; PULSE 111; RESP 14; TEMP 36.7; O2SAT 96
== END 2024-11-23 05:00 | disposition home or self-care (01) ==
PROVIDERS: Physician Assistant Medical; Emergency Provider Internal Medicine; PCP Internal Medicine
DX: F33.1 Major depressive disorder, recurrent, moderate (principal); I25.10 Atherosclerotic heart disease of native coronary artery without angina pectoris; E11.9 Type 2 diabetes mellitus without complications; I10 Essential (primary) hypertension; Z79.899 Other long term (current) drug therapy; Z79.84 Long term (current) use of oral hypoglycemic drugs
CPT/HCPCS: 36415; 80053; 81003; 82947; 83735; 85025; 99284

== ENCOUNTER 2024-12-26 13:21 | Outpatient (RCR) | payer MEDICARE, SELFPAY | END 2025-01-20 08:32 | disposition home or self-care (01) | LOC: HO.PT 13:21 | PROVIDERS: PCP Internal Medicine; Visit Provider Physician Assistant Medical | DX: R26.89 Other abnormalities of gait and mobility (principal); S82.001D Unspecified fracture of right patella, subsequent encounter for closed fracture with routine healing; W01.0XXD Fall on same level from slipping, tripping and stumbling without subsequent striking against object, subsequent encounter; Z91.81 History of falling | CPT/HCPCS: 97110; 97112; 97162; 97530 ==

== ENCOUNTER 2025-01-13 11:24 | Inpatient (IN) | payer MEDICARE, SELFPAY ==
[2025-01-13] VITALS (7 sets, daily range): BP systolic 99–122; BP diastolic 71–83; PULSE 99–114; RESP 14–20; TEMP 36.3–36.7; O2SAT 93–98; BMI 28.7; BMI 22.5
--- NOTE | ~2025-01-13 | XR_ITS ---
EXAMINATION: XR CHEST 1 VIEW HISTORY: Fall COMPARISON: Comparison is made with the prior examination dated 02/01/2024. FINDINGS: A single AP portable view of the chest performed at 12:14 PM is submitted. The right subclavian dual-chamber pacemaker is unchanged in position. Additional leads are seen on the left. There is a moderate to large left pleural effusion. Underlying atelectasis or pneumonia at the left lung base is not excluded. There is no pneumothorax or pulmonary vascular congestion. Again seen are calcified mediastinal lymph nodes. The heart is normal in size. The patient is status post median sternotomy and CABG. There is degenerative disc disease of the spine. There are surgical clips in the left axilla. XR/XR chest 1V IMPRESSION: Moderate to large left pleural effusion. Underlying atelectasis or pneumonia at the left lung base is not excluded. Electronically signed by: Isac Reddy MD 01/13/2025 12:32 PM EDT
--- NOTE | ~2025-01-13 | XR_ITS ---
EXAMINATION: XR CHEST CLINICAL INFORMATION: dyspnea COMPARISON: Numerous recent priors, most recently 01/14/2025 at 12:23 PM. TECHNIQUE: Frontal view of the chest was obtained. FINDINGS: Right-sided dual-chamber pacer device in place, unchanged. Abandoned left-sided leads again noted as well. Status post median sternotomy and CABG. Surgical clips overlie the mediastinum. There is mild cardiac enlargement. Numerous calcified mediastinal and hilar lymph nodes again noted without change. There is no perceptible pneumothorax. Small left effusion now noted. Mild residual opacity in the left lung base, likely residual consolidation. The right lung remains grossly clear. Numerous stellate nodular opacities seen on the chest CT examination are poorly visualized on AP plain film. There are surgical clips in the left axilla. There are degenerative changes in the spine and involving both shoulder joints. Blastic bone lesions seen on the CT examination are not well perceived on plain film. XR/XR chest 1V IMPRESSION: 1. Mild reaccumulation of left effusion. 2. No perceptible pneumothorax. 3. Mild residual opacity left base, likely residual consolidation. 4. Numerous chronic and additional findings, without change. Electronically signed by: Davis Reese MD 01/15/2025 10:09 AM EDT
--- NOTE | ~2025-01-13 | CT_ITS ---
EXAMINATION: CT CERVICAL SPINE WITHOUT CONTRAST CLINICAL INFORMATION: Trauma, fall COMPARISON: February 01, 2024 centimeters trocar 2020 TECHNIQUE: Axial imaging was performed from the base of the skull through T2 without IV contrast. Coronal and sagittal reformatted images were generated from the original axial data set. ALARA: The examination used one or more of the following radiation dose reduction techniques: Automated exposure control, iterative reconstruction, and/or adjustment of mA and/or KV. DLP: 368 mGY*cm FINDINGS: There is linear and punctate calcification within the cruciate ligament with sclerotic and degenerative cystic changes in the dens. There is abutment of the tip of dens with the base of the clivus, increased since the prior examination. There are marginal osteophytes in this region as well. There is also vague calcification in the soft tissues superior and inferior to the anterior C1 ring. There is under calcinosis involving the articulation of the lateral mass of C1 and C2. There is also pyrophosphate deposition in the posterior posterior C2-3 and C4-5 disc annulus, throughout the C5-6 disc, and vaguely C6-7. C2-C3: Severe facet osteoarthritis C3-C4: Minimal grade 1 anterolisthesis and severe facet osteoarthritis C4-C5: Mild grade 1 anterolisthesis and severe facet osteoarthritis C5-C6: Subtle grade 1 anterolisthesis and severe disc space narrowing with moderate facet osteoarthritis C6-7: Severe disc space narrowing with endplate sclerosis, osteophytes, as well as uncovertebral and facet osteophytes. C7-T1: There is mild disc space narrowing and moderate facet joint space narrowing. There is a new lesion in the posterior T1 vertebral body. It has sclerotic margins with a diameter of 8 mm. There is a 9 mm nodule in the lateral right apex that is essentially calcified consistent with a calcified granuloma. There is a 14 x 25 mm nodular density with irregular margins in the medial right apex. Both were present in 2020. Moderate layering pleural effusion in the left lung. CT/CT cervical spine wo IV con IMPRESSION: No acute fracture. New moderate left pleural effusion. Extensive pyrophosphate deposition in the cruciate ligament. 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 Stable nodular changes in the right apex including a calcified granuloma. Electronically signed by: Arron Andrea MD 01/13/2025 01:58 PM EDT
--- NOTE | ~2025-01-13 | CT_ITS ---
EXAMINATION: CT HEAD WITHOUT CONTRAST CLINICAL INFORMATION: Trauma, fall COMPARISON: 02/01/2024 TECHNIQUE: Contiguous axial imaging was performed from the skull base to vertex without intravenous administration of contrast. This CT examination was performed using dose optimization techniques as appropriate, variously including the following: *Automated exposure control *Adjustment of mA and/or kV according to patient size (this includes techniques or standardized protocols for targeted exams where dose is matched to indication/reason for exam; i.e. extremities or head) *Use of iterative reconstruction technique DLP: 780 mGY*cm FINDINGS: There is no acute ischemic change. There is no intracranial hemorrhage. There is no mass-effect or midline shift. There is mild to moderate generalized volume loss. Basal cisterns and ventricles are within normal limits for age/cerebral volume. Orbits are symmetrical and unremarkable. Compared to the prior, there is decreased opacification of the right frontal sinus and ethmoid air cells. Mucosal thickening in the maxillary sinuses has also decreased. There are no bony abnormalities. CT/CT head/brain wo IV con IMPRESSION: No acute intracranial abnormality. Improved changes of chronic pansinusitis. Electronically signed by: Arron Andrea MD 01/13/2025 02:01 PM EDT
--- NOTE | ~2025-01-13 | US_ITS ---
EXAMINATION: ULTRASOUND-GUIDED LEFT THORACENTESIS CLINICAL INFORMATION: LEFT PLEURAL EFFUSION COMPARISON: None available. TECHNIQUE: Following explaining ultrasound-guided left thoracentesis procedure, benefits and risk, a written consent was obtained. Patient was placed upright sitting on previous ultrasound imaging to the posterior chest was performed. An optimal site was selected along the left intrascapular line approximately ninth interspace and a marker was placed on the skin. The marked area was cleaned and draped in usual sterile manner with 2% chlorhexidine solution. 1% lidocaine was injected puncture site. Through a small skin incision a short 4 [place] Islander Yueh catheter was advanced into the pleural space. After observing fluid return, stylet was withdrawn and catheter connected to vacuum bottle via connecting cannula. After obtaining all fluid and observing no more fluid return, catheter was withdrawn and complete hemostasis achieved at puncture site. Sterile dressing applied post procedure. Patient tolerated procedure extremely well. Chest x-ray was obtained subsequently. FINDINGS: A preliminary ultrasound imaging of left hemithorax there is moderate left pleural effusion. Approximately 1 L of omid color fluid was drained. This fluid was sent to lab for diagnostic purposes as per referring physician's orders. US/US thoracentesis IMPRESSION: Successful ultrasound-guided diagnostic left thoracentesis performed. Electronically signed by: Raphael Hilliard MD 01/14/2025 02:54 PM EDT
--- NOTE | ~2025-01-13 | XR_ITS ---
EXAMINATION: XR CHEST CLINICAL INFORMATION: post left thoracentesis COMPARISON: Chest x-ray and CT chest 01/13/2025. TECHNIQUE: Inspiration and expiratory AP views of the chest were obtained. FINDINGS: Right-sided dual-chamber pacer device in place, unchanged. Abandoned left-sided leads again noted as well. Status post median sternotomy and CABG. Surgical clips overlie the mediastinum. There is mild cardiac enlargement. Numerous calcified mediastinal and hilar lymph nodes again noted without change. There is no perceptible pneumothorax on either inspiratory or expiratory films. The left pleural effusion has near completely resolved. Mild residual opacity in the left lung base, likely residual consolidation. The right lung remains clear. Numerous stellate nodular opacities seen on the chest CT examination are poorly visualized on AP plain film. There are surgical clips in the left axilla. There are degenerative changes in the spine and involving both shoulder joints. Blastic bone lesions seen on the CT examination are not well perceived on plain film. XR/XR chest 2V IMPRESSION: 1. Interval near complete resolution of left effusion. 2. No perceptible pneumothorax. 3. Mild residual opacity left base, likely residual consolidation. 4. Numerous chronic and additional findings, without change. Electronically signed by: Davis Reese MD 01/14/2025 12:52 PM EDT
--- NOTE | ~2025-01-13 | CT_ITS ---
EXAMINATION: CT CHEST WITHOUT CONTRAST CLINICAL INFORMATION: Dyspnea, abnormal x-rays. COMPARISON: Chest x-ray dated earlier same day. Chest radiograph 02/01/2024, 06/05/2023. TECHNIQUE: Multidetector volumetric CT imaging of the chest was done. Axial MIP volume rendering provided. Sagittal and coronal reformatted images were obtained. This CT examination was performed using dose optimization techniques as appropriate, variously including the following: *Automated exposure control *Adjustment of mA and/or kV according to patient size (this includes techniques or standardized protocols for targeted exams where dose is matched to indication/reason for exam; i.e. extremities or head) *Use of iterative reconstruction technique FINDINGS: LUNGS: Moderate to large size left layering pleural effusion present, with compressive atelectasis/consolidation of the majority of the left lower lobe, and portions of the posterior segment left upper lobe. The superior segment left lower lobe is aerated, as is the apical anterior segment left upper lobe. There are stellate nodular abnormalities in the aerated left upper lobe, right upper lobe, right middle lobe and right lower lobe, nonspecific. For example, a stellate left upper lobe opacity measures 11 mm in diameter (series 4, image 32). A left upper lobe stellate abnormality measures 1.4 x 0.7 cm (series 4, image 38). A cluster of stellate right middle lobe nodules with a central coarse calcification is present (series 4, image 60). There is no right effusion. There is mild thickening of the small airways within the aerated lung parenchyma. There is mild peribronchovascular interstitial thickening present. There is no pneumothorax. MEDIASTINUM: There has been prior median sternotomy and probable CABG. There are right-sided pacing leads in place terminating in the right ventricle and right atrium. There are abandoned left-sided pacer leads. The heart is mildly enlarged. There is no pericardial effusion. The aorta is moderately calcified but nonaneurysmal. The main pulmonary artery is mildly prominent. There are extensive calcified small lymph nodes throughout the mediastinum and bilateral hilum, in keeping with prior granulomatous disease. CORONARY ARTERY CALCIFICATION: Heavy coronary calcification. AXILLA/CHEST WALL: Right-sided generator pack in place. Male gynecomastia. No lymphadenopathy. There are surgical clips throughout the left axilla. UPPER ABDOMEN: Left renal cyst measuring 3.4 cm. Heavy atheromatous calcification of the aorta and its branches. OSSEOUS STRUCTURES: There are blastic bone lesions throughout the spine and in several ribs in keeping with blastic metastatic bone disease. For example, lesions are seen in T1, T5, T7, T8, T9, and T10. CT/CT chest wo IV con IMPRESSION: 1. Moderate to large left pleural effusion with compressive atelectasis and/or consolidation of the majority of the left lower lobe and posterior segment left upper lobe. Pneumonia cannot be excluded given the appearance. 2. There are stellate nodular abnormalities throughout both aerated lungs as described, suspicious. Some of these may be related to old granulomatous changes although the noncalcified lesions cannot be characterized as definitively benign. Cannot exclude neoplastic disease/metastases. 3. 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 4. Extensive calcified lymph nodes throughout the mediastinum and hilum in keeping with prior granulomatous disease. 5. Additional ancillary findings as discussed in the body of the report. Electronically signed by: Davis Reese MD 01/13/2025 04:38 PM EDT
--- NOTE | 2025-01-13 11:50 | ECG_ITS ---
Test Reason : ams Blood Pressure : */* mmHG Vent. Rate : 97 BPM Atrial Rate : 234 BPM P-R Int : * ms QRS Dur : 96 ms QT Int : 346 ms P-R-T Axes : * -20 119 degrees QTcB Int : 439 ms Atrial flutter with variable A-V block with occasional ventricular-paced complexes Inferior infarct , age undetermined T wave abnormality, consider anterolateral ischemia Abnormal ECG When compared with ECG of 31-Jan-2024 23:19, Electronic ventricular pacemaker has replaced Sinus rhythm Referred By: Sherrill Guillen Electronically Signed By: GABRIELA VALDES MD
--- NOTE | 2025-01-13 11:51 | ED_ITS ---
HPI - Fall General Chief Complaint: Fall Stated Complaint: DIZZY W/FALL,-HS,NO C/O PAIN PER EMS Time Seen by Provider: 01/13/25 11:38 Source: patient, family ( daughter) and EMS Mode of arrival: EMS Limitations: no limitations History of Present Illness ED Provider: DR. Guillen HPI Narrative: 84-year-old male came in by ambulance for evaluation after had a mechanical fall, patient with history of recurrent fall at home, patient lives home with his mostly active, PMH significant for CAD, HTN, HLD, bipolar disorder, T2 DM brought in by EMS after he witnessed fall by his , patient stated that he that out chair felt his legs are weak and gave out that is why he fell, no head injury, no LOC, no headache, no neck pain, no CP, no SOB, no abdominal pain, daughter at the bedside who is also medical personnel at community development technician office confirmed that the patient is at his baseline. Related Data Home Medications ?Medication ?Instructions ?Recorded ?Confirmed bimatoprost 0.01 % eye drops 1 drp ophthalmic (eye) BE DTIME 05/28/20 01/13/25 ([facility]) bupropion HCl 150 mg 24 hr tablet, 150 mg PO DAILY 01/0601/13/25 extended release cyanocobalamin (vitamin B-12) 1,000 mcg PO DAILY 06/0901/13/25 1,000 mcg tablet (Vitamin B-12) folic acid 1 mg tablet 1 mg PO DAILY 06/09/2201/13 metformin 500 mg tablet,extended 1,000 mg PO DAILY 01/13/25 release 24 hr cholecalciferol (vitamin D3) 50 50 mcg PO DAILY 01/13/25 mcg (2,000 unit) tablet pantoprazole 40 mg tablet,delayed 40 mg PO DAILY@0630 02/01/24 01/13/25 release aspirin 81 mg tablet,delayed 162 mg PO DAILY 08/22/24 01/13/25 release (Adult Aspirin Regimen) melatonin 5 mg tablet 5 mg PO BEDTIME PRN insomnia 01/13/25 01/13/25 Previous Rx's ?Medication ?Instructions ?Recorded alendronate 70 mg tablet 70 mg PO SA 30 days #5 tabs 04/16/21 alfuzosin 10 mg tablet,extended 1 tab PO BEDTIME 90 da ys #90 tabs 04/16/21 release 24 hr atorvastatin 80 mg tablet 80 mg PO DAILY 90 days #90 t abs 04/16/21 finasteride 5 mg tablet 5 mg PO DAILY 30 days #30 ta bs 04/16/21 lamotrigine 25 mg tablet 25 mg PO BID #60 tabs olanzapine 10 mg tablet 10 mg PO BEDTIME 30 days #30 tabs 04/16/21 Allergies Allergy/AdvReac Type Severity Reaction Status Date / Time Penicillins Allergy Unknown Unknown Verified 01/13/25 12:04 metoprolol AdvReac Intermediate bradycardia Verified 01/13/25 12:04 timolol AdvReac Intermediate low bp Verified 01/13/25 12:04 tamsulosin (From [employer]) AdvReac Mild Diarrhea Verified 01/13/25 12:04 beta blockers AdvReac Hypotension Uncoded 01/13/25 12:04 Review of Systems 2 Review of Systems: All other systems are reviewed and are negative Constitutional: Reports as per HPI and Reports no additional constitutional complaints Eyes: Reports as per HPI and Reports no additional eye complaints Reports system reviewed and no additional complaints, except as documented Cardiovascular: Reports as per HPI and Reports no additional cardiovascular complaints Respiratory: Reports as per HPI and Reports no additional respiratory complaints Gastrointestinal: Reports as per HPI and Reports no additional gastrointestinal complaints Genitourinary: Reports no additional female genitourinary complaints Musculoskeletal: Reports no additional musculoskeletal complaints Skin/Breast: Reports system reviewed and no additional complaints, except as docu Psychiatric: Reports no additional psychiatric complaints Endocrine: Reports no additional endocrine complaints Hematologic/Lymphatic: Reports no additional hematologic/lymphatic complaints Allergic/Immunologic: Reports no additional allergic/immunologic complaints Reports system reviewed and no additional complaints, except as documented and Reports Abnormal speech present [facility] Past Medical History Medical History History of left breast cancer CAD (coronary artery disease) Cardiac pacemaker in situ Sick sinus syndrome HTN (hypertension) Diabetes Hyperlipidemia Surgical History Hx of cataract surgery Hx of mastectomy History of permanent cardiac pacemaker placement Hx of CABG Family History Family History Father CVD (cardiovascular disease) Mother CVD (cardiovascular disease) Brother CVD (cardiovascular disease) Sister Diabetes Son Diabetes Social History Social History Household Members: Spouse Housing: Apartment Do you presently have visiting nurse or other home services: Yes (twice a week) Alcohol intake: never Patient Tobacco Use Status: Former Tobacco user Tobacco use type: Cigarette Currently Displaying Signs/Symptoms of Drug Intoxication Withdrawal: No Have you been hit, kicked, punched, or otherwise hurt by someone within the past year? If so, by whom?: No Do you feel safe in your current relationship?: Yes Is there a partner from a previous relationship who is making you feel unsafe now?: No Are you made to feel afraid or neglected: No Advance Directives: Yes Advance Directives on File: Yes Advance Directives Date on File: 03/17/21 Do you have a plan to hurt others: No Plan Recently lost weight without trying: No service: No Sexual orientation: Straight/Heterosexual Physical Exam 2 Vital Signs: Vital Signs: Last Vital Signs Temp 97.6 F 01/14/25 15:26 Pulse 112 H 01/14/25 16:10 Resp 20 01/14/25 15:26 BP 116/80 01/14/25 16:10 Pulse Ox 94 01/14/25 15:26 O2 Del Method Room Air 01/14/25 15:26 BMI result Body Mass Index 28.7 Vital signs have been reviewed and appear to be correct. Blood pressure elevated. Heart rate normal. Respiratory rate normal. Temperature normal. Oxygen saturation normal. Appearance: Alert. Oriented X3. No acute distress. Head: Normal external exam. Normocephalic. Atraumatic. No Hunter signs noted. No raccoon eyes noted Eyes: PERRLA. EOMI. Conjunctiva and sclera normal. Eyelids normal. ENT: TM's Normal. Pharynx normal. Uvula midline. Moist mucous membranes. No trismus noted. No drooling noted. No muffled voice noted. Neck: Normal inspection. Neck supple. FROM. No adenopathy. Thyroid Normal. No meningeal signs. No neck mass noted. CVS: Normal heart rate and rhythm. Heart sound normal. No murmurs noted. Pulses normal throughout. Respiratory: No respiratory distress. Painless inspiration. Breath sounds normal. No wheezes/rales/rhonchi noted. Chest nontender. No accessory muscle usage noted or decreased air movement noted. Abdomen: Soft and nontender. Bowel sounds normal in all 4 quadrants. No distention noted. No organomegaly noted. No visible injury noted. Back: No CVA tenderness. Full range of motion noted. Skin: Skin warm and dry. Normal skin color. Normal skin turgor. No rashes/lesions/lacerations noted. Extremities: No lower extremity edema. Extremities exhibit normal range of motion. Extremities nontender. Neuro: Oriented X 3. Cranial nerve exam: II-XII are grossly intact No motor deficit. No sensory deficit. Reflexes normal. Course Reevaluation(s) Reevaluation #1: 84 year old male came in after a mechanical fall. EKG is revealing AFib patient is supposedly an atrial paced at rate of 55, that 1 dose of metoprolol IV/p.o. . Chest x-ray revealing moderate to large Left pleural effusion with possible pneumonia under, patient will get CT of the chest. Received 1 empirical dose of ceftriaxone for leukocytosis and possible underlying pneumonia. Time: 16:00 Reevaluation #2: 01/13/2025 at 18:52 hours, Dr. Earl Kelly's note: I assumed care of this patient from my colleague, Dr. Guillen at 17:00 hours. Patient presented to the emergency department for evaluation of mechanical fall and was noted to have a left pleural effusion. CT scan of the chest was pending at the end of Dr. Guillen's shift. The CT scan is concerning for possible spiculated neoplastic lesions in his lungs with large pleural effusion and collapse of the left upper and lower lobes of the lung. Patient also has blastic lesions in ribs and thoracic spine. Patient did have a history of breast cancer 10 years prior which was treated with surgery and radiation. Patient had treatment at [facility] at that time. states that the patient did have a lesion in his right lung which may have been cancer but they decided not to pursue workup for this lesion. This lesion was noted 4 years prior. I did discuss the CT scan finding over tiger text with the covering hospitalist, Dr. Santamaria and the patient will be admitted for evaluation and treatment Medications Administered Generic Name Dose Route Start Last Admin Trade Name Concha ADAMEN Reason Stop Dose Admin Atorvastatin Calcium 80 mg 01/14/25 09:00 01/14/25 09:46 Atorvastatin Calcium 80 Mg Tablet PO 80 mg DAILY TEDDY Administration Bupropion HCl 150 mg 01/14/25 09:00 01/14/25 09:46 Bupropion Hcl Xl 150 Mg Tab.Er.24h PO 150 mg DAILY TEDDY Administration Ceftriaxone Sodium 2 gm 01/14/25 15:00 01/14/25 15:14 Ceftriaxone Sodium 2 Gm Vial IVPUSH 2 gm Q24H TEDDY Administration Cyanocobalamin 1,000 mcg 01/14/25 09:00 01/14/25 09:47 Cyanocobalamin (Vitamin B-12) 1,000 Mcg Tablet PO 1,000 mcg DAILY TEDDY Administration Finasteride 5 mg 01/14/25 09:00 01/14/25 09:46 Finasteride 5 Mg Tablet PO 5 mg DAILY TEDDY Administration Folic Acid 1 mg 01/14/25 09:00 01/14/25 09:46 Folic Acid 1 Mg Tablet PO 1 mg DAILY TEDDY Administration Doxycycline Hyclate 100 mg/ 250 mls @ 166.67 mls/hr 01/14/25 04:00 01/14/25 17:30 Sodium Chloride IV Infused Q12H TEDDY Infusion Lactated Ringer's 1,000 mls @ 50 mls/hr 01/13/25 22:15 01/14/25 17:23 Lr IVCONT 50 mls/hr .Q20H TEDDY Administration Insulin Human Lispro 0 unit 01/14/25 07:30 01/14/25 16:59 Insulin Lispro 100 Unit/Ml 3 Ml Vial SUBCUT Not Given QIDACHS [facility] Protocol Lamotrigine 25 mg 01/13/25 22:00 01/14/25 09:47 Lamotrigine 25 Mg Tablet PO 25 mg BID TEDDY Administration Latanoprost 1 drop 01/13/25 22:15 01/13/25 22:32 Latanoprost 0.005 % Ophth [place] 2.5 Ml Drops EYE-BOTH 1 drop BEDTIME TEDDY Administration Olanzapine 10 mg 01/13/25 22:15 01/13/25 22:26 Olanzapine 10 Mg Tablet PO 10 mg BEDTIME TEDDY Administration Omeprazole 20 mg 01/14/25 06:30 01/14/25 05:41 Omeprazole 20 Mg Capsule.Dr PO 20 mg DAILY@0630 TEDDY Administration Sodium Chloride 3 ml 01/14/25 00:00 01/14/25 15:14 0.9 % Sodium Chloride Flush 3 Ml Syringe IVFLUSH 3 ml QSHIFT TEDDY Administration Tamsulosin HCl 0.4 mg 01/13/25 22:15 01/13/25 22:26 Tamsulosin Hcl 0.4 Mg Capsule PO 0.4 mg BEDTIME TEDDY Administration Vitamin D 50 mcg 01/14/25 09:00 01/14/25 09:46 Cholecalciferol (Vitamin D3) 25 Mcg Tablet PO 50 mcg DAILY TEDDY Administration Discontinued Medications Generic Name Dose Route Start Last Admin Trade Name Freq PRN Reason Stop Dose Admin Ceftriaxone Sodium 1 gm 01/13/25 14:43 01/13/25 15:23 Ceftriaxone Sodium 1 Gm Vial IVPUSH 01/13/25 14:44 1 gm ONCE ONE Administration Doxycycline Monohydrate 100 mg 01/13/25 15:30 01/13/25 15:40 Doxycycline Monohydrate 100 Mg Capsule PO 01/13/25 15:31 100 mg ONCE ONE Administration Sodium Chloride 1,000 mls @ 250 mls/hr 01/13/25 16:01 01/13/25 20:45 Ns IV 01/13/25 20:00 Infused .Q4H STA Infusion Lidocaine HCl 5 ml 01/14/25 12:50 01/14/25 12:51 Lidocaine Hcl 1 % Mpf 5 Ml Vial SUBCUT 01/14/25 12:51 5 ml ONCE ONE Administration Metoprolol Succinate 25 mg 01/13/25 15:27 01/13/25 15:41 Metoprolol Succinate Er 25 Mg Tab.Er.24h PO 01/13/25 15:28 25 mg ONCE ONE Administration Protocol Metoprolol Tartrate 5 mg 01/13/25 15:27 01/13/25 15:41 Metoprolol Tartrate 5 Mg/5 Ml Vial IVPUSH 01/13/25 15:28 5 mg ONCE ONE Administration Protocol Medical Decision Making Differential Diagnosis Differential Diagnoses: The differential diagnosis associated with the presentation includes ( Pleural effusion, pneumonia, pneumothorax, electrolyte derangement, severe anemia.) Admission/Observation Consideration of admission/observation: Escalation of care including admission/observation considered Consult Healthcare Provider Management of the patient was discussed with: Hospitalist ( Dr. Santamaria) Lab Data MDM Lab Attestation statement: I reviewed the patient's lab results. 01/14/25 07:19 01/14/25 07:19 Labs: Lab Results 01/13/25 01/13/25 01/13/25 Range/Units 12:18 12:54 13:31 WBC 13.2 H (4.8-10.8) X10*3/uL RBC 4.43 L (4.60-5.80) X10*6/uL Hgb 12.6 L (14.0-18.0) g/dl Hct 39.0 L (42.0-52.0) % MCV 88.0 (80.0-98.0) fL MCH 28.4 (27.0-33.0) pg MCHC 32.3 (31.0-36.0) g/dl RDW 14.8 (11.0-16.0) % Plt Count 347 (160-400) X10*3/uL MPV 9.2 L (9.4-12.4) fL Immature Gran % (Auto) 0.5 H (0.0-0.4) % Neut % (Auto) 88.4 H (45-73) % Lymph % (Auto) 5.5 L (20-40) % Keith % (Auto) 4.6 (2-11) % Eos % (Auto) 0.5 (0-4) % Baso % (Auto) 0.5 (0-2) % Lymph # (Auto) 0.7 L (1.2-4.9) X10*3/uL Keith # (Auto) 0.6 (0.1-1.2) X10*3/uL Eos # (Auto) 0.1 (0.0-0.4) X10*3/uL Baso # (Auto) 0.1 (0.0-0.2) X10*3/uL Abs Immat Gran (auto) 0.06 H (0.00-0.03) X10*3/uL Absolute Neuts (auto) 11.6 H (2.0-8.3) x10*3/uL Absolute Nucleated RBC 0.000 (0.0-0.012) X10*3/uL Nucleated RBC % (auto) 0.0 (0.0-0.2) /100WBC Sodium 139 (135-145) mmol/L Potassium 4.5 (3.3-5.1) mmol/L Chloride 106 (96-108) mmol/L Carbon Dioxide 24 (22-29) mmol/L Anion Gap 14 (12-20) BUN 15 (9-16) mg/dL Creatinine 0.97 (0.5-1.4) mg/dL Estim Creat Clear Calc 66.5 Estimated GFR > 60 Random Glucose 177 H (60-115) mg/dL Lactic Acid (0.5-2.0) mmol/L Lactic Acid F/U @ 2Hr Calcium 9.7 (8.4-10.2) mg/dL Total Bilirubin 0.8 (0.0-1.0) mg/dL Direct Bilirubin 0.3 (0.0-0.5) mg/dL AST 52 H (5-37) U/L ALT 37 (0-40) U/L Alkaline Phosphatase 101 (39-117) U/L Troponin I High Sens 12.6 (<3.5-35.0) ng/L B-Natriuretic Peptide 118 H (<100) pg/mL Total Protein 6.2 L (6.5-8.0) g/dL Albumin 3.7 (3.5-5.0) g/dL Lipase 30 (8-78) U/L Urine Color Yellow Urine Appearance Clear Urine pH 5.5 (5.0-9.0) Ur Specific [place] 1.010 (1.005-1.025) Urine Protein Negative (Neg-Trace) mg/dL Urine Glucose (UA) Negative (Negative) mg/dL Urine Ketones Negative (Negative) mg/dL Urine Blood Negative (Negative) Urine Nitrite Negative (Negative) Ur Leukocyte Esterase Negative (Negative) Influenza Type A (PCR) NEGATIVE (Negative) Influenza Type B (PCR) NEGATIVE (Negative) RSV RNA Qual (PCR) NEGATIVE (Negative) SARS-CoV-2 RNA (RT-PCR) NEGATIVE (Negative) 01/13/25 01/13/25 Range/Units 15:03 18:08 WBC (4.8-10.8) X10*3/uL RBC (4.60-5.80) X10*6/uL Hgb (14.0-18.0) g/dl Hct (42.0-52.0) % MCV (80.0-98.0) fL MCH (27.0-33.0) pg MCHC (31.0-36.0) g/dl RDW (11.0-16.0) % Plt Count (160-400) X10*3/uL MPV (9.4-12.4) fL Immature Gran % (Auto) (0.0-0.4) % Neut % (Auto) (45-73) % Lymph % (Auto) (20-40) % Keith % (Auto) (2-11) % Eos % (Auto) (0-4) % Baso % (Auto) (0-2) % Lymph # (Auto) (1.2-4.9) X10*3/uL Keith # (Auto) (0.1-1.2) X10*3/uL Eos # (Auto) (0.0-0.4) X10*3/uL Baso # (Auto) (0.0-0.2) X10*3/uL Abs Immat Gran (auto) (0.00-0.03) X10*3/uL Absolute Neuts (auto) (2.0-8.3) x10*3/uL Absolute Nucleated RBC (0.0-0.012) X10*3/uL Nucleated RBC % (auto) (0.0-0.2) /100WBC Sodium (135-145) mmol/L Potassium (3.3-5.1) mmol/L Chloride (96-108) mmol/L Carbon Dioxide (22-29) mmol/L Anion Gap (12-20) BUN (9-16) mg/dL Creatinine (0.5-1.4) mg/dL Estim Creat Clear Calc Estimated GFR Random Glucose (60-115) mg/dL Lactic Acid 2.9 H* (0.5-2.0) mmol/L Lactic Acid F/U @ 2Hr Cancelled Calcium (8.4-10.2) mg/dL Total Bilirubin (0.0-1.0) mg/dL Direct Bilirubin (0.0-0.5) mg/dL AST (5-37) U/L ALT (0-40) U/L Alkaline Phosphatase (39-117) U/L Troponin I High Sens (<3.5-35.0) ng/L B-Natriuretic Peptide (<100) pg/mL Total Protein (6.5-8.0) g/dL Albumin (3.5-5.0) g/dL Lipase (8-78) U/L Urine Color Urine Appearance Urine pH (5.0-9.0) Ur Specific [place] (1.005-1.025) Urine Protein (Neg-Trace) mg/dL Urine Glucose (UA) (Negative) mg/dL Urine Ketones (Negative) mg/dL Urine Blood (Negative) Urine Nitrite (Negative) Ur Leukocyte Esterase (Negative) Influenza Type A (PCR) (Negative) Influenza Type B (PCR) (Negative) RSV RNA Qual (PCR) (Negative) SARS-CoV-2 RNA (RT-PCR) (Negative) Independent Interpretation I performed an independent interpretation of an: Plain X-Ray ( chest:Moderate to large left pleural effusion. Underlying atelectasis or pneumonia at the left lung base is not excluded. ) and CT Scan ( head/ C-spine CT: no acute intracranial pathology, No acute fracture. New moderate left pleural effusion. Extensive pyrophosphate deposition in the cruciate ligament. 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 Extensive facet osteoarthritis and degenerative disc disease likely sec) Radiology Impression Discussion of test interpretation with radiology: I have reviewed the radiologist's reading. Radiologist Impression: CT chest wo IV con EXAMINATION: CT CHEST WITHOUT CONTRAST CLINICAL INFORMATION: Dyspnea, abnormal x-rays. COMPARISON: Chest x-ray dated earlier same day. Chest radiograph 02/01/2024, 06/05/2023. TECHNIQUE: Multidetector volumetric CT imaging of the chest was done. Axial MIP volume rendering provided. Sagittal and coronal reformatted images were obtained. This CT examination was performed using dose optimization techniques as appropriate, variously including the following: *Automated exposure control *Adjustment of mA and/or kV according to patient size (this includes techniques or standardized protocols for targeted exams where dose is matched to indication/reason for exam; i.e. extremities or head) *Use of iterative reconstruction technique FINDINGS: LUNGS: Moderate to large size left layering pleural effusion present, with compressive atelectasis/consolidation of the majority of the left lower lobe, and portions of the posterior segment left upper lobe. The superior segment left lower lobe is aerated, as is the apical anterior segment left upper lobe. There are stellate nodular abnormalities in the aerated left upper lobe, right upper lobe, right middle lobe and right lower lobe, nonspecific. For example, a stellate left upper lobe opacity measures 11 mm in diameter (series 4, image 32). A left upper lobe stellate abnormality measures 1.4 x 0.7 cm (series 4, image 38). A cluster of stellate right middle lobe nodules with a central coarse calcification is present (series 4, image 60). There is no right effusion. There is mild thickening of the small airways within the aerated lung parenchyma. There is mild peribronchovascular interstitial thickening present. There is no pneumothorax. MEDIASTINUM: There has been prior median sternotomy and probable CABG. There are right-sided pacing leads in place terminating in the right ventricle and right atrium. There are abandoned left-sided pacer leads. The heart is mildly enlarged. There is no pericardial effusion. The aorta is moderately calcified but nonaneurysmal. The main pulmonary artery is mildly prominent. There are extensive calcified small lymph nodes throughout the mediastinum and bilateral hilum, in keeping with prior granulomatous disease. CORONARY ARTERY CALCIFICATION: Heavy coronary calcification. AXILLA/CHEST WALL: Right-sided generator pack in place. Male gynecomastia. No lymphadenopathy. There are surgical clips throughout the left axilla. UPPER ABDOMEN: Left renal cyst measuring 3.4 cm. Heavy atheromatous calcification of the aorta and its branches. OSSEOUS STRUCTURES: There are blastic bone lesions throughout the spine and in several ribs in keeping with blastic metastatic bone disease. For example, lesions are seen in T1, T5, T7, T8, T9, and T10. CT/CT chest wo IV con IMPRESSION: 1. Moderate to large left pleural effusion with compressive atelectasis and/or consolidation of the majority of the left lower lobe and posterior segment left upper lobe. Pneumonia cannot be excluded given the appearance. 2. There are stellate nodular abnormalities throughout both aerated lungs as described, suspicious. Some of these may be related to old granulomatous changes although the noncalcified lesions cannot be characterized as definitively benign. Cannot exclude neoplastic disease/metastases. 3. 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 4. Extensive calcified lymph nodes throughout the mediastinum and hilum in keeping with prior granulomatous disease. 5. Additional ancillary findings as discussed in the body of the report. Electronically signed by: Davis Reese MD 01/13/2025 04:38 PM EDT RP Dictated By: Davis Reese MD Critical Care Time Critical Care Time Critical Care Time: Yes Total Critical Care Time: 40 Attestation: Critical Care: The patient was critically ill with a high probability of imminent or life threatening deterioration. I spent greater than 30 minutes of discontinuous time evaluating the patient,delivering critical care at the bedside, discussing and evaluating pertinent data with consultants. Critical care time does not include time spent performing separately billable procedures or teaching. Total time spent performing critical care was 40 minutes. Discharge Plan Discharge Clinical Impression: Atrial fibrillation, Pleural effusion, Pulmonary nodule, Bone lesion Pneumonia Qualifiers: Pneumonia type: due to unspecified organism Laterality: left Lung location: l ower lobe of lung Qualified Code(s): J18.9 - Pneumonia, unspecified organism Patient Disposition: Admitted As Inpatient Interventions: Admission Worksheet (ED) Last Done: 01/13/25 19:39 Discharge Date/Time: 01/13/25 20:59
--- NOTE | 2025-01-13 11:55 | MHC.EDTECH ---
Daughter Emily ([facility] staff) [phone] with any questions or concerns
[2025-01-13 12:25] LABS: MANUAL DIFF FLAG NO
[2025-01-13 12:29] LABS: Hematocrit 39.0 % (42.0-52.0); Hemoglobin 12.6 g/dl (14.0-18.0); Imm Gran Abs Auto 0.06 X10*3/uL (0.00-0.03); Imm Gran Pct Auto 0.5 % (0.0-0.4); Lymphocytes Absolute Auto 0.7 X10*3/uL (1.2-4.9); Mean Corpuscular HGB Conc 32.3 g/dl (31.0-36.0); Mean Corpuscular Hemoglobin 28.4 pg (27.0-33.0); Mean Corpuscular Volume 88.0 fL (80.0-98.0); NRBC Abs Auto 0.000 X10*3/uL (0.0-0.012); NRBC Pct Auto 0.0 /100WBC (0.0-0.2); Platelet Count 347 X10*3/uL (160-400); Red Blood Count 4.43 X10*6/uL (4.60-5.80); White Blood Count 13.2 X10*3/uL (4.8-10.8)
[2025-01-13 12:48] LABS: B Type Natriuretic Peptide 118 pg/mL (<100)
--- OUTSIDE RECORDS SUMMARY | 2025-01-13 13:08 | XMS_ITS | Clinical Summary ---
Author Organization [facility] Address [address] [place] [address] Care Team Providers Care Logging Tractor Operator Name Role Phone Teresa Duran MD Primary Care Provider [phone] Allergies No known active allergies Medications Medication [...] 54 10/25/2021 2:05 PM EDT Temperature 36.6 C (97.9 F) 10/25/2021 2:05 PM EDT Respiratory Rate - - Oxygen Saturation 97% [...] ( season) 2024 08/09/2020, 07/21/2020 Influenza Vaccine (#1) 2025 , 04/09/2019, 03/19/2018, Additional history exists Pneumococcal Vaccine Completed 06/01/2016, 09/19/19 09 Hepatitis B Vaccines Aged Out No long er eligible based on patient's age to complete this topic RSV Ped < 20 months Aged Out No longe r eligible based on patient's age to complete this topic Care Teams Logging Tractor Operator Relationship Specialty Start Date End Date Teresa Duran MD PCP - General Internal Medicine 04/28/20
--- OUTSIDE RECORDS SUMMARY | 2025-01-13 13:08 | XMS_ITS ---
Author Name [facility] Organization Unknown Care Team Organization Name Specialty Phone Email Start Date End Da te [facility] Shaq Kuzn Primary Care 08/24/202202/04 [facility] Renee Primary Care 04/26/2022 02/05/2024
--- OUTSIDE RECORDS SUMMARY | 2025-01-13 13:08 | XMS_ITS | Clinical Summary ---
Author Organization [address] Address [address] [place] [phone] Phone Care Team Providers Care Coding Compliance Auditor Name Role Phone Teresa Duran MD Primary Care Provider [phone] Allergies Active Allergy Reactions Criticality Noted Date Comments Beta-Blockers (Beta-Adrenerg ic Blocking Agts) 08/02/2017 Tamsulosin High 04/29/2021 Bradycardic Timolol Maleate Medium 08/17/2005 slow heart rate Medications lancets (OneTouch Delica Plus Lancet) 33 gauge USE 1 LANCET TOPICALLY DAILY 02/09/20 Active OneTouch Ultra Test test strip USE TO TEST BLOOD SUGAR ONCE DAILY 01/25/20 Active OLANZapine (ZyPREXA) 10 mg tablet Take 1 Tablet by mouth at bedtime. Active buPROPion SR (WELLBUTRIN SR) 150 mg 12 hr tablet Take 1 Tablet by mouth daily. Active lamoTRIgine (LaMICtal) 25 mg tablet 2 (two) times a day. Active alfuzosin (UROXATRAL) 10 mg 24 hr tablet Take 10 mg by mouth. Active blood-glucose meter kit BLOOD GLUCOSE MONITORING [...] 5688 mL 11 05/06/20 24 025 Active cholecalcifero l (VITAMIN D-3) 50 mcg (2,000 unit) tablet TAKE 1 TABLET BY MOUTH DAILY. 90 tablet 3 08/01/19 25 Active alendronate (FOSAMAX) 70 mg tablet TAKE 1 TABLET BY MOUTH EVERY 7 DAYS 12 tablet 1 09/10/19 25 Active imiquimod (ALDARA) 5 % cream APPLY TO AFFECTED AREA MONDAY-MONDAY FOR 6 WEEKS 10/19/19 25 Active pantoprazole (PROTONIX) 40 mg EC tablet Take 1 tablet (40 mg total) by mouth 1 (one) time each day. 90 tablet 1 11/05/19 25 Active metFORMIN XR (GLUCOPHAGE-XR ) 500 mg 24 hr tablet Take 2 tablets (1,000 mg total) by mouth 1 (one) time each day. Do not crush, chew, or split. 180 tablet 1 11/05/19 25 Active finasteride (PROSCAR) 5 mg tablet Take 1 tablet (5 mg total) by mouth 1 (one) time each day. Do not crush, chew, or split. 90 tablet 1 11/05/19 25 Active folic acid (FOLVITE) 1 mg tablet Take 1 tablet (1,000 mcg total) by mouth 1 (one) time each day. 90 tablet 1 11/05/19 25 Active cyanocobalamin (Vitamin B-12) 1,000 mcg tablet Take 1 tablet (1,000 mcg total) by mouth 1 (one) time each day. 90 tablet 1 11/05/19 25 Active atorvastatin (LIPITOR) 80 mg tablet TAKE ONE TABLET BY MOUTH EVERY DAY 90 tablet 1 12/28/19 25 Active atorvastatin (LIPITOR) 80 mg tablet Take 1 tablet (80 mg total) by mouth 1 (one) time each day. 90 tablet 1 11/05/19 25 025 Discontinued Active Problems Problem Noted Date Diagnosed Date Other specified health status 03/26/2024 Overview (03/26/2024): Cor Athrscl-Uns Vessel Major depression, recurrent, chronic (CMS/HCC V2 4) 02/19/2021 RLS (restless legs syndrome) 03/13/2020 Pulmonary mass 01/18/2019 Weight loss 01/07/2019 Abnormal CXR 01/07/2019 Overview (03/26/2024): Follows with Dr. Boland, CT 06/2019, better Osteopenia determined by x-ray 10/10/2018 Bipolar affective disorder, current episode mixed ([facility] V24, [facility] V28) 08/29/2017 Overview (03/26/2024): Diagnosed and follows with Dr. Kaleb Ochoa, psychiatry at [facility] [place]. 03/14/[address] 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 Orders: Vitamin D 25 hydroxy; Future Hemoglobin A1c; Future Thyroid stimulating hormone; Future Comprehensive metabolic panel; Future Complete blood count; Future BPH (benign prostatic hyperplasia) 05/31/2013 Overview (03/26/2024): Initially diagnosed in 2005, good response in terms of nocturia to low-dose alpha-priscila Hyperparathyroidism ([facility] V24) 02/01/2011 Controlled diabetes mellitus type II without complication ([facility] V24, [facility] V28) 10/25/2010 Overview (03/26/2024): Last Assessment & Plan: Checking Your Blood Sugars Please check your blood sugars every day. Please check your sugars at the following times of day: before breakfast Your Blood Sugar Goals Pre Meal: 90-130 2 hours after meals: 110-160 Bedtime: 110-150 Use the Results Bring your glucometer to every appointment Write your fingerstick blood sugars down on a log sheet or record book. Bring them to your appointment Look for patterns in the numbers. The [...] just unsure what to do Educational Resources [place] [employer] (www.diabetes.org) Centers for Disease Control and Prevention (www.cdc.gov/diabetes) This care plan was created in collaboration with Kurt Kee on 04/29/2015 Assessment & Plan (08/12/2024 12:11 [...] Encounters Date Type Department Care Team Description 11/26/2024 1:00 PM EDT Office Visit Orthopedic Surgery [facility] [address] [phone] Flex Carroll DPM Metatarsalgia of right foot (Primary Dx); Dermatophytosis of nail; Ingrowing nail; Hammertoes of both feet; Acquired hammer toe of right foot; Hammer toe of left foot; Corns and callosities; Bilateral femoral artery stenosis ([facility] V24); Pain in toe of left foot; Pain in toe of right foot 11/15/2024 Nurse Triage Adult [address] [phone] Shaq Kunz PA 11/04/2024 11:00 AM EDT Office Visit Adult [address] [phone] Shaq Kunz PA Pure hypercholesterolemia (Primary Dx); Primary hypertension; Type 2 diabetes mellitus with other kidney complication, unspecified whether terminal clerk insulin use ([facility] V24, [facility] V28); Decreased appetite 10/21/2024 10:30 AM EDT Office Visit Orthopedic [facility] [address] [phone] Flex Carroll DPM Corns and callosities (Primary Dx); Metatarsalgia of both feet; Type II diabetes mellitus with peripheral circulatory disorder (CMS/HCC V24, CMS/HCC V28); Acquired hammer toe of right foot; Hammer toe of left foot; Dermatophytosis of nail; Ingrowing nail from Last 3 Months Immunizations Name Administration [...] Coronary atherosclerosis of unspecified type of vessel, [place] or graft 07/11/2005 DX:Coronary atherosclerosis of unspecified type of vessel, [place] or graft; COMMENT: s/p CABGX 4, repeat Cath showed , followed by Dr. Nunes Reportedly mibi (-) 07/27 at [facility]. 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 Kaleb Ochoa, psychiatry at [facility] Depressive disorder DX:Depressiv e disorder Major depression, recurrent, chronic ([facility] V24) 02/19/2021 DX:Major depression, recurre nt, chronic (HCC) [...] Sign Reading Time Taken Comments Blood Pressure 98/60 11/04/2024 10:51 AM EDT Pulse 50 11/04/2024 10:51 AM EDT Temperature 36.3 C (97.3 F) 11/04/2024 10:51 AM EDT Respiratory Rate 14 11/04/2024 10:5 1 AM EDT Oxygen Saturation 95% 11/04/2024 10: 51 AM EDT Inhaled Oxygen Concentration - - Weight 70.7 kg (155 lb 12.8 oz) 025 10:51 AM EDT Height 170.2 cm (5' 7 ) 11/04/2024 10:5 1 AM EDT Body Mass Index 24.4 11/04/2024 10:51 AM EDT Plan of Treatment Upcoming Encounters Date Type Department Care Team (Late st Contact Info) Description 03/03/2025 1:00 PM EDT Office Visit Orthopedic Surgery - [place] [address] [phone] Flex Carroll, DPJoanie [address] [address] 03/17/2025 11:00 AM EDT Office Visit Adult Medicine [facility] [address] [place] [phone] Teresa Duran MD [address] [place] [address] Health Maintenance Due Date Last Done Comments Diabetes: Annual Foot Exam 1950 Zoster Vaccines (1 of 2) 06/28/2015 05/03/2015 RSV Immunization Adult Patients (1 - 1-dose 75+ series) 2017 Colorectal Cancer Screening: Stool Based Tests (FOBT/FIT) 05/28/2022 Falls Risk Assessment 05/28/2022 Social Influencers of Health Screening 05/28/2022 COVID-19 Vaccine ( season) 2024 04/18/2022, 05/04/2021, 08/09/2020, Additional history exists Depression Screening 06/19/2024 Influenza Vaccine (#1) 2025 , 03/03/2022, 03/13/2020, Additional history exists Medicare Annual Wellness Visit 03/05/2025 03/05/2024 Diabetes: Annual Urine Albumin-Creatinine Ratio (uACR) 05/02/2025 05/02/2024, 10/25/2022 Diabetes: Blood Sugar Control Test (HGBA1C) 06/03/2025 12/02/2024, 08/12/2024, 05/02/2024, Additional history exists Diabetes: Annual Retina Eye Exam 08/06/2025 08/06/2024 Diabetes: Annual GFR (Glomerular Filtration Rate) 12/02/2025 12/02/2024, 08/12/2024, 09/26/2023 Hypertension/CHF/CAD Annual BMP Blood Test 12/02/2025 12/02/2024, 08/12/2024, 09/26/2023 DTaP,Tdap,and Td Vaccines (3 - [...] age to complete this topic Meningococcal B Vaccine Aged Out No l onger eligible based on patient's age to complete this topic RSV Immunization Patients Under 20 months Aged Out No longer eligible based on patient's age to complete this topic Varicella Vaccines Aged Out No longer eligible based on patient's age to complete this topic Procedures Procedure Name Priority Date/Time Associated Diagnosis Comments CBC WITH AUTO DIFFERENTIAL Routine 12/02/2024 12:06 PM EDT Anemia, unspecified type CBC AND DIFFERENTIAL Routine 12/02/2024 12:06 PM EDT Anemia, unspecified type IRON AND TIBC Routine 12/02/2024 12:06 PM EDT Anemia, unspecified type FERRITIN Routine 12/02/2024 12:06 PM EDT Anemia, unspecified type VITAMIN B12 Routine 12/02/2024 12:06 PM EDT Anemia, unspecified type FOLATE Routine 12/02/2024 12:06 PM EDT Anemia, unspecified type COMPREHENSIVE METABOLIC PANEL Routine 12/02/2024 12:06 PM EDT Type 2 diabetes mellitus with other kidney complication, unspecified whether care home insulin use ([facility] V24, [facility] V28) HEMOGLOBIN A1C Routine 12/02/2024 12:06 PM EDT Type 2 diabetes mellitus with other kidney complication, unspecified whether care home insulin use ([facility] V24, [facility] V28) EXTERNAL DIABETIC RETINA EYE EXAM 08/06/2024 MICROALBUMIN CREATININE URINE RATIO Routine 05/02/2024 1:55 PM EST Atherosclerosis of [place] coronary artery of [place] heart without angina pectoris Controlled type 2 diabetes mellitus without complication, without long-term current use of insulin ([facility] V24, [facility] V28) LIPID PANEL WITH REFLEX TO DIRECT LDL Routine 05/02/2024 1:55 PM EST Atherosclerosis of [place] coronary artery of [place] heart without angina pectoris Controlled type 2 diabetes mellitus without complication, without long-term current use of insulin ([facility] V24, [facility] V28) from Last 3 Months or Most Recently Relevant to Health Maintenance Results * (ABNORMAL) CBC auto differential (12/02/2024 12:06 PM EDT) [facility] WBC 12.3(H) 4.8 - 10.8 K/mcL LAB HEMETOLOGY METHOD 12/02/2024 3:23 PM EDT [facility] RBC 4.50 4.50 - 5.50 M/mcL LAB HEMETOLOGY METHOD 12/02/2024 3:23 PM EDT [facility] Hemoglobin 12.9(L) 13.5 - 17.5 g/dL LAB HEMETOLOGY METHOD 12/02/2024 3:23 PM EDT [facility] Hematocrit 41.4(L) 42.0 - 54.0 % LAB [facility]ETOLOGY [facility] MCV 92.4 79.0 - 98.0 FL LAB HEMETOLOGY METHOD 12/02/2024 3:[address] [facility] MCH 28.8 27.0 - 32.0 pcg LAB HEMETOLOGY METHOD 12/02/2024 [facility] MCHC 31.2(L) 32.0 - 37.0 g/dL LAB HEMETOLOGY METHOD 12/02/2024 3:[address] [facility] RDW 13.7 11.0 - 15.0 % LAB HEMETOLOGY METHOD 12/02/2024 3:[address] [facility] Platelets 465(H) 130 - 400 K/mcL LAB HEMETOLOGY METHOD 12/02/2024 3:[address] [facility] MPV 9.5 7.0 - 11.0 FL LAB HEMETOLOGY METHOD 12/02/2024 3:[address] [facility] NRBC 0.0 <1.0 % LAB HEMETOLOGY METHOD 12/02/2024 3:[address] [facility] NRBC Absolute 0.00 <0.10 K/mcL LAB HEMETOLOGY METHOD 12/02/2024 3:[address] [facility] Neutrophils Relative 86.2 % LAB HEMETOLOGY METHOD 12/02/2024 3:[address] [facility] Lymphocytes Relative 6.5 % LAB HEMETOLOGY METHOD 12/02/2024 3:[address] [facility] Monocytes Relative 5.5 % LAB HEMETOLOGY METHOD 12/02/2024 3:[address] [facility] Eosinophils Relative 0.8 % LAB HEMETOLOGY METHOD 12/02/2024 3:23 PM EDT [facility] Basophils Relative 0.4 % LAB HEMETOLOGY METHOD 12/02/2024 3:23 PM EDT [facility] Immature Granulocytes Relative 0.6 % LAB HEMETOLOGY METHOD 12/02/2024 3:23 PM EDT [facility] Neutrophils Absolute 10.64(H) 1.50 - 7.00 K/mcL LAB HEMETOLOGY METHOD 12/02/2024 3:23 PM EDT [facility] Lymphocytes Absolute 0.80(L) 1.00 - 5.00 K/mcL LAB HEMETOLOGY METHOD 12/02/2024 3:23 PM EDT [facility] Monocytes Absolute 0.68 0.20 - 1.00 K/mcL LAB HEMETOLOGY METHOD 12/02/2024 3:23 PM EDT [facility] Eosinophils Absolute 0.10 0.00 - 0.50 K/mcL LAB HEMETOLOGY METHOD 12/02/2024 3:23 PM EDT [facility] Basophils Absolute 0.05 0.00 - 0.20 K/mcL LAB HEMETOLOGY METHOD 12/[facility] Immature Granulocytes Absolute 0.07(H) 0.00 - 0.03 K/mcL LAB HEMETOLOGY METHOD 12/02/2024 3:23 PM T [facility] Blood Venous blood specimen / Unknown Venipuncture / Unknown 12/02/2024 12:06 PM EDT 12/02/2024 12:06 PM EDT us Shaq DE LA VEGA LAB BLOOD ORDERABLES Fin al Result [facility] [address] [place] [address], * (ABNORMAL) Iron and TIBC (12/02/2024 12:06 PM EDT) Iron 55 50 - 160 mcg/dL LAB CHEMISTRY METHOD 12/02/2024 4:09 PM EDT [facility] TIBC 233(L) 250 - 450 mcg/dL LAB CHEMISTRY METHOD 12/02/2024 4:09 PM EDT [facility] Iron Saturation 24 20 - 50 % LAB CHEMISTRY METHOD 12/02/2024 4:09 PM EDT [facility] Blood Venous blood specimen / Unknown Venipuncture / Unknown 12/02/2024 12:06 PM EDT 12/02/2024 12:06 PM EDT Shaq DE LA VEGA LAB BLOOD ORDERABLES Fin al Result Performing Organization Address [facility]/ZIP Al de Phone Number [facility] [address] [place] [address], [place] [phone] * (ABNORMAL) Hemoglobin A1c (12/02/2024 12:06 PM EDT) Pathologist [facility] Hemoglobin A1C 8.7(H) <6.5 % LAB CHEMISTRY METHOD 12/02/2024 10:14 PM EDT [facility] Mean Bld Glu Estim. 203 mg/dL LAB CHEMISTRY METHOD 12/02/2024 10:14 PM EDT [facility] Blood Venous blood specimen / Unknown Venipuncture / Unknown 12/02/2024 12:06 PM EDT 12/02/2024 12:06 PM EDT us Shaq DE LA VE[place] LAB BLOOD ORDERABLES Fin al Result Performing Organization Address [facility]/ZIP Co de Phone Number [facility] [address] [place] [address], [place] [phone] * (ABNORMAL) Folate (12/02/2024 12:06 PM EDT) Folate >20.0(H) 2.8 - 17.0 ng/ml LAB CHEMISTRY METHOD 12/02/2024 4:09 PM EDT [facility] Blood Venous blood specimen / Unknown Venipuncture / Unknown 12/02/2024 12:06 PM EDT 12/02/2024 12:06 PM EDT Shaq DE LA VEGA LAB BLOOD ORDERABLES Fin al Result Performing Organization Address City/[facility]/ZIP Co de Phone Number [facility] [address] [place] [address], [place] [phone] * Ferritin (12/02/2024 12:06 PM EDT) Pathologist [facility] Ferritin 205 26 - 388 ng/mL LAB CHEMISTRY METHOD 12/02/2024 4:09 PM EDT [facility] Blood Venous blood specimen / Unknown Venipuncture / Unknown 12/02/2024 12:06 PM EDT 12/02/2024 12:06 PM EDT Shaq DE LA VEGA LAB BLOOD ORDERABLES Fin al Result Performing Organization Address [facility] de Phone Number [facility] [address] [place] [address], [place] [phone] * (ABNORMAL) Vitamin B12 (12/02/2024 12:06 PM EDT) Pathologist [facility] Vitamin B-12 >2,000(H) 250 - 900 pcg/mL LAB CHEMISTRY METHOD 12/02/2024 4:09 PM EDT [facility] Blood Venous blood specimen / Unknown Venipuncture / Unknown 12/02/2024 12:06 PM EDT 12/02/2024 12:06 PM EDT us Shaq DE LA VEGA LAB BLOOD ORDERABLES Fin al Result Performing Organization Address City/[facility]/ZIP Co de Phone Number [facility] [address] [place] [address], [place] [phone] * (ABNORMAL) Comprehensive metabolic panel (12/02/2024 12:06 PM EDT) Sodium 139 133 - 145 mmol/L LAB CHEMISTRY METHOD 12/02/2024 4:[address] [facility] Potassium 4.7 3.5 - 5.5 mmol/L LAB CHEMISTRY METHOD 12/02/2024 4:[address] [facility] Chloride 104 96 - 110 mmol/L LAB CHEMISTRY METHOD 12/02/2024 4:[address] [facility] CO2 29 21 - 32 mmol/L LAB CHEMISTRY METHOD 12/02/2024 4:[address] [facility] Anion Gap 6 3 - 11 LAB CHEMISTRY METHOD 12/02/2024 4:[address] [facility] Glucose 206(H) 70 - 100 mg/dL LAB CHEMISTRY METHOD 12/02/2024 4:[address] [facility] BUN 15 5 - 25 mg/dL LAB CHEMISTRY METHOD 12/02/2024 4:[address] [facility] Creatinine 1.04 0.70 - 1.30 mg/dL LAB CHEMISTRY METHOD 12/02/2024 4:[address] [facility] eGFR 72 >=60 mL/min/1. 73m2 LAB CHEMISTRY METHOD 12/02/2024 4:[address] [facility] Comment:Calculation based on the Chronic Kidney Disease Epidemiology Collaboration (CKD-EPI) equation refit without adjustment for race. BUN/Creatinine Ratio 14.4 LAB CHEMISTRY METHOD 12/02/2024 4:[address] [facility] Calcium 10.2 8.5 - 10.5 mg/dL LAB CHEMISTRY METHOD 12/02/2024 4:[address] [facility] AST (SGOT) 26 10 - 42 unit/L LAB CHEMISTRY METHOD 12/02/2024 4:09 PM EDT [facility] ALT (SGPT) 26 10 - 60 unit/L LAB CHEMISTRY METHOD 12/02/2024 4:09 PM EDT [facility] Alkaline Phosphatase 137(H) 42 - 121 unit/L LAB CHEMISTRY METHOD 12/02/2024 4:09 PM EDT [facility] Total Protein 6.5 6.0 - 8.0 g/dL LAB CHEMISTRY METHOD 12/02/2024 4:09 PM EDT [facility] Albumin 3.2 3.2 - 5.0 g/dL LAB CHEMISTRY METHOD 12/02/2024 4:09 PM EDT [facility] Total Bilirubin 0.6 0.0 - 1.4 mg/dL LAB CHEMISTRY METHOD 12/02/2024 4:09 PM EDT [facility] Blood Venous blood specimen / Unknown Venipuncture / Unknown 12/02/2024 12:06 PM EDT 12/02/2024 12:06 PM EDT Shaq DE LA VEGA LAB BLOOD ORDERABLES Fin al Result [facility] [address] [place] [address], [place] [phone] * External Diabetic Retina Eye Exam Report (08/06/2024) Anatomical Region Laterality Modality Ultrasound us Provider [facility] US PROCEDURES Final Result * (ABNORMAL) Lipid panel with reflex to direct LDL (05/02/2024 1:55 PM EST) Cholesterol 117 0 - 200 mg/dL LAB CHEMISTRY METHOD 05/02/2024 5:55 PM EST [facility] Triglycerides 197(H) 0 - 150 mg/dL LAB CHEMISTRY METHOD 05/02/2024 5:55 PM EST [facility] HDL 32(L) >=40 mg/dL LAB CHEMISTRY METHOD 05/02/2024 5:55 PM EST [facility] LDL Calculated 46 0 - 100 mg/dL LAB CHEMISTRY METHOD 05/02/2024 5:55 PM EST [facility] VLDL Cholesterol Avtar 39.4 mg/dL LAB CHEMISTRY METHOD 05/02/2024 5:55 PM EST [facility] Non HDL Chol. (LDL+VLDL) 85 <145 mg/dL LAB CHEMISTRY METHOD 05/02/2024 5:55 PM EST [facility] Chol/HDL Ratio 3.7 0.0 - 4.4 LAB CHEMISTRY METHOD 05/02/2024 5:55 PM EST [facility] Blood Venous blood specimen / Unknown Venipuncture / Unknown 05/02/2024 1:55 PM EST 05/02/2024 1:55 PM EST Teresa Duran MD LAB BLOOD ORDERABLES Final Resul t Performing Organization Address City/[facility] Co de Phone Number [facility] [address] [place] [address], [place] [phone] * Microalbumin creatinine urine ratio (05/02/2024 1:55 PM EST) Creatinine, Urine 120.0 mg/dL LAB CHEMISTRY METHOD 05/02/2024 6:32 PM EST [facility] Microalb, Ur 5.2 0.0 - 29.0 mg/L LAB CHEMISTRY METHOD 05/02/2024 6:32 PM EST [facility] Microalb/Creat Ratio 4 <30 mg/g creat LAB CHEMISTRY METHOD 05/02/2024 6:32 PM EST [facility] Urine Urine specimen obtained by clean catch procedure / Unknown Non-blood Collection / Unknown 05/02/2024 1:55 PM EST 05/02/2024 1:55 PM EST us Teresa Duran MD LAB URINE ORDERABLES Final Resul t [facility] [address] [place] [address], from Last 3 Months or Most Recently Relevant to Health Maintenance Insurance [facility]IC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
--- OUTSIDE RECORDS SUMMARY | 2025-01-13 13:08 | XMS_ITS | Encounter Summary ---
Author Organization [facility] Address [address] [place] [address] Phone Care Team Providers Care Senior Python Developer Name Role Phone Teresa Duran MD Primary Care Provider [phone] Self-Referred, Patient Unavailable Unavailab Zaina Cabrales MD Unavailable [phone] Mariela Bolanos MD Unavailable [phone] Teresa Duran MD Primary Care Provider [phone] Markel Love MD Unavailable [phone] Kaleb Ochoa MD Unavailable David Mai MD Unavailable Robbin Karimi MD Unavailable Encounter Details Date Type Department Care Team (Late st Contact Info) Description 10/28/2016 Procedure Pass BWF Periop 1st floor [address] [place] [address] Social History Tobacco Use Types Packs/Day Years Used Date Smoking Tobacco: Former Cigarettes 1 6 961 - 1966 Smokeless Tobacco: Never Alcohol Use Standard Drinks/Week Comments Yes 1 (1 standard drink = 0.6 oz pur e alcohol) Sex and Gender Information Value Date Recorded Sex Assigned at Not on file Legal Sex Male 2:04 PM EDT Gender Identity Male 02/08/2021 10:25 AM EDT Sexual Orientation Not on file documented as of this encounter Plan of Treatment Not on file documented as of this encounter Visit Diagnoses Not on filedocumented in this encounter Care Teams Senior Python Developer Relationship Specialty Start Date End Date Teresa Duran MD [address] [place] [address] PCP - General Internal Medicine 09/30/16 08/27/17 Teresa Duran MD [address] [place] [address] PCP - General Internal Medicine 08/28/17 Self-Referred, Patient 10/12/16 Zaina Lazcano MD [email or web address] Radiation Oncology 11/18/16 03/15/17 Mariela Bolanos MD Radiation Oncology 03/16/17 Markel Love MD [address] [id number] [email or web address] Medical Oncology 09/14/1712/06 Kaleb cOhoa MD [address] [place] [email or web address] 09/14/1711/18 David Mai MD [address] [place] [address] [place] [address] [email or web address] Medical Oncology 12/07/17 Robbin Karimi MD [address] [place] [id number] Geriatric Psychiatry 12/07/17 documented as of this encounter Additional Source Comments The information contained in this document represents components of the legal health record. It is not the complete legal health record.[facility]
[2025-01-13 13:16] LABS: Alanine Aminotransferase 37 U/L (0-40); Albumin Level 3.7 g/dL (3.5-5.0); Alkaline Phosphatase 101 U/L (39-117); Anion Gap 14 (12-20); Aspartate Amino Transferase 52 U/L (5-37); Blood Urea Nitrogen 15 mg/dL (9-16); Calcium 9.7 mg/dL (8.4-10.2); Carbon Dioxide 24 mmol/L (22-29); Chloride 106 mmol/L (96-108); Creatinine Clr Calc Pharmacy 66.5; Estimated Glomerular Filt Rate > 60; Lipase 30 U/L (8-78); Potassium 4.5 mmol/L (3.3-5.1); Sodium 139 mmol/L (135-145); Total Protein 6.2 g/dL (6.5-8.0)
[2025-01-13 13:24] LABS: Troponin-I High Sensitivity 12.6 ng/L (<3.5-35.0)
[2025-01-13 13:37] LABS: Resp Syncy Virus RNA Qual PCR NEGATIVE (Negative); SARS COV2 PCR INHOUSE NEGATIVE (Negative)
[2025-01-13 15:15] LABS: Appearance Urine Clear; Glucose Urine UA Negative (Negative); PH 5.5 (5.0-9.0); Specific Gravity - Urine 1.010 (1.005-1.025)
[2025-01-13] MEDS: Metoprolol Succinate ER 25 MG TAB.ER.24H PO (15:41)
[2025-01-13 17:09] LABS: Reflex Lactate? Lactic Acid Added
--- NOTE | 2025-01-13 19:32 | MHC.EDTECH ---
clothes sent home with , no belongings with patient
--- NOTE | 2025-01-13 20:28 | PHA.MEDREC ---
Addendum entered by Yara Garcia [facility] 01/13/25 21:18: REVIEWED BY PHARMACIST Original Note: Pharmacy Consult ? Medication Reconciliation Pharmacy has completed the medication reconciliation. Spoke with pt and pt spouse at bedside and pt spouse confirmed most of the medications. Pt confirmed his Alendronate 70mg tab once a week on Saturdays and confirmed he took it last Thursday 01/11. Pt spouse and pt confirmed the pt Dr argueta told pt to stop the Metoprolol about 1 month ago.
--- NOTE | 2025-01-13 21:46 | PM.IMHP ---
History of Present Illness Date of Service: 01/13/25 Attending physician on admission: Nathan Brothers Chief Complaint: fall Patient is an 84-year-old male with a past medical history significant for CAD/CABG, HTN, HLD, bipolar, type 2 diabetes, history of breast cancer treated with surgery and radiation 10 years ago, who presented to the ED due to a witnessed mechanical fall earlier today due to dizziness. There was no head strike or loss of consciousness. Patient reports that he fell onto his left side. He is not having any pain at this time. He denies any chest pain, shortness of breath, nausea, vomiting, URI symptoms or urinary symptoms including frequency, urgency or dysuria. His workup in the ED his workup had incidental findings including moderate to large left pleural effusion with compressive atelectasis and/or consolidation of the majority of the left lower lobe and posterior segment left lower lobe. Pneumonia can not be excluded given the appearance. There are also stellate nodular abnormalities throughout both aerated lungs as described, suspicious. Some of these may be related to old granulomatous changes although the noncalcified lesions can not be characterized as definitive fairly benign. Can not exclude neoplastic disease/metastasis. 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 Extensive calcified lymph nodes throughout the mediastinum and hilum in keeping with prior granulomatous disease. Head CT was negative for acute intracranial abnormality. Review of Systems Constitutional: Constitutional: Denies body ache(s), Denies chills, Denies fatigue, Reports frequent falls and Denies headache(s) Eyes: Eyes: Denies change in vision ENT: Denies headache(s) Cardiovascular: Cardiovascular: Denies chest pain, Denies rapid heart rate, Denies leg edema, Denies lightheadedness and Denies dyspnea Respiratory: Respiratory: Denies chest congestion, Denies cough, Denies dyspnea and Denies wheezing Gastrointestinal: Gastrointestinal: Denies abdominal pain, Denies nausea and Denies vomiting Genitourinary: Genitourinary: Denies dysuria and Denies urinary urgency Musculoskeletal: Musculoskeletal: Denies back pain Integumentary/Breasts: Skin/Breast: Denies rash Neurologic: Denies confusion, Reports frequent falls and Denies headache(s) Psychiatric: Psychiatric: Denies confusion Endocrine: Endocrine: Denies fatigue Hematologic/Lymphatic: Hematologic/Lymphatic: Denies easy bleeding and Denies easy bruising Allergic/Immunologic: Allergic/Immunologic: Denies wheezing [facility] Medical History History of left breast cancer CAD (coronary artery disease) Cardiac pacemaker in situ Sick sinus syndrome HTN (hypertension) Diabetes Hyperlipidemia Functional capacity: uses cane/walker Family History Father CVD (cardiovascular disease) Mother CVD (cardiovascular disease) Brother CVD (cardiovascular disease) Sister Diabetes Son Diabetes Surgical History Hx of cataract surgery Hx of mastectomy History of permanent cardiac pacemaker placement Hx of CABG Social History Household Members: Spouse Housing: Apartment Do you presently have visiting nurse or other home services: No Alcohol intake: never Patient Tobacco Use Status: Former Tobacco user Tobacco use type: Cigarette Advance Directives: Yes Advance Directives on File: Yes Advance Directives Date on File: 03/17/21 Do you have a plan to hurt others: No Plan service: No Sexual orientation: Straight/Heterosexual Narrative: no smoking, etoh or drug use Meds Allergies Allergy/AdvReac Type Severity Reaction Status Date / Time Penicillins Allergy Unknown Unknown Verified 01/13/25 12:04 metoprolol AdvReac Intermediate bradycardia Verified 01/13/25 12:04 timolol AdvReac Intermediate low bp Verified 01/13/25 12:04 tamsulosin (From Flomax) AdvReac Mild Diarrhea Verified 01/13/25 12:04 beta blockers AdvReac Hypotension Uncoded 01/13/25 12:04 Active Medications: Current Medications Acetaminophen (Acetaminophen 325 Mg Tablet) 975 mg PO Q6H PRN PRN Reason: Pain, Mild 1-3,fever,headache Calcium Carbonate (Calcium Carbonate 750 Mg Tab.Chew) 750 mg PO Q4H PRN PRN Reason: Heartburn Ceftriaxone Sodium (Ceftriaxone Sodium 2 Gm Vial) 2 gm IVPUSH Q24H TEDDY Dextrose (Dextrose 50 % 25 Gm/50 Ml Syringe) 25 gm IVPUSH Q15M PRN; Protocol PRN Reason: per Hypoglycemia Standing Ord. Glucose (Glucose Gel 15 Gm Gel..Gram.) 15 gm PO Q15M PRN; Protocol PRN Reason: per Hypoglycemia Standing Ord. Doxycycline Hyclate 100 mg/ (Sodium Chloride) 250 mls @ 166.67 mls/hr IV Q12H [facility] Insulin Human Lispro (Insulin Lispro 100 Unit/Ml 3 Ml Vial) 0 unit SUBCUT QIDACHS [facility]; Protocol Magnesium Hydroxide (Milk Of Magnesia 30 Ml Oral.Susp) 30 ml PO DAILY PRN PRN Reason: Constipation Melatonin (Melatonin 3 Mg Tablet) 6 mg PO BEDTIME PRN PRN Reason: Insomnia Ondansetron HCl (Ondansetron Hcl 4 Mg/2 Ml Vial) 4 mg IVPUSH Q8H PRN PRN Reason: Nausea and Vomiting Oxycodone HCl (Oxycodone Hcl Immed Release 5 Mg Tablet) 5 mg PO Q6H PRN PRN Reason: Pain, Severe (Pain Scale 7-10) Sodium Chloride (0.9 % Sodium Chloride Flush 3 Ml Syringe) 3 [facility] Medications ?Medication ?Instructions ?Recorded ?Confirmed ?Last Taken ?Type bimatoprost 0.01 % eye drops 1 drp ophthalmic (eye) BEDTIME 05/28/20 01/13/25 01/12/25 History (Eulalio) bupropion HCl 150 mg 24 hr tablet, 150 mg PO DAILY 05/25/21 01/13/25 01/13/25 History extended release cyanocobalamin (vitamin B-12) 1,000 mcg PO DAILY 06/09/22 01/13/25 01/13/25 History 1,000 mcg tablet (Vitamin B-12) folic acid 1 mg tablet 1 mg PO DAILY 06/09/22 01/13/25 01/13/25 History metformin 500 mg tablet,extended 1,000 mg PO DAILY 07/05/22 01/13/25 01/13/25 History release 24 hr cholecalciferol (vitamin D3) 50 50 mcg PO DAILY 02/01/24 01/13/25 01/13/25 History mcg (2,000 unit) tablet pantoprazole 40 mg tablet,delayed 40 mg PO DAILY@0630 02/01/24 01/13/25 01/13/25 History release aspirin 81 mg tablet,delayed 162 mg PO DAILY 08/22/24 01/13/25 01/13/25 History release (Adult Aspirin Regimen) melatonin 5 mg tablet 5 mg PO BEDTIME PRN insomnia 01/13/25 01/13/25 Unknown History Physical Exam Vital Signs and Narrative: Vital Signs: Last Vital Signs Temp 98 F 01/13/25 21:21 Pulse 99 01/13/25 21:21 Resp 18 01/13/25 21:21 BP 108/77 01/13/25 21:21 Pulse Ox 93 01/13/25 21:21 O2 Del Method Room Air 01/13/25 21:21 BMI result Body Mass Index 28.7 General: AOx3, no acute distress. seen with and daughter bedside. Resp: CTA bilaterally CVS: S1, S2, RRR GI: +BS, NT, no distention Skin: Warm, dry Neuro: Cranial nerves II-XII grossly intact bilaterally. Motor grossly intact bilaterally Extremities: No LE edema Psych: Appropriate affect Const: General: No confusion Orientation/consciousness: No confusion Neuro: General: No confusion Results Labs 01/13/25 12:18 01/13/25 12:54 Labs: Laboratory Results - last 24 hr 01/13/25 01/13/25 01/13/25 12:18 12:54 13:31 MCV 88.0 MCH 28.4 MCHC 32.3 RDW 14.8 Plt Count 347 MPV 9.2 L Immature Gran % (Auto) 0.5 H Neut % (Auto) 88.4 H Lymph % (Auto) 5.5 L Daniels % (Auto) 4.6 Eos % (Auto) 0.5 Baso % (Auto) 0.5 Lymph # (Auto) 0.7 L Daniels # (Auto) 0.6 Eos # (Auto) 0.1 Baso # (Auto) 0.1 Abs Immat Gran (auto) 0.06 H Absolute Neuts (auto) 11.6 H Absolute Nucleated RBC 0.000 Nucleated RBC % (auto) 0.0 Anion Gap 14 Estim Creat Clear Calc 66.5 Estimated GFR > 60 Random Glucose 177 H Lactic Acid Lactic Acid F/U @ 2Hr Calcium 9.7 Total Bilirubin 0.8 Direct Bilirubin 0.3 AST 52 H ALT 37 Alkaline Phosphatase 101 B-Natriuretic Peptide 118 H Total Protein 6.2 L Albumin 3.7 Lipase 30 Urine Color Yellow Urine Appearance Clear Urine pH 5.5 Ur Specific [place] 1.010 Urine Protein Negative Urine Glucose (UA) Negative Urine Ketones Negative Urine Blood Negative Urine Nitrite Negative Ur Leukocyte Esterase Negative Influenza Type A (PCR) NEGATIVE Influenza Type B (PCR) NEGATIVE RSV RNA Qual (PCR) NEGATIVE SARS-CoV-2 RNA (RT-PCR) NEGATIVE 01/13/25 01/13/25 15:03 18:08 MCV MCH MCHC RDW Plt Count MPV Immature Gran % (Auto) Neut % (Auto) Lymph % (Auto) Daniels % (Auto) Eos % (Auto) Baso % (Auto) Lymph # (Auto) Daniels # (Auto) Eos # (Auto) Baso # (Auto) Abs Immat Gran (auto) Absolute Neuts (auto) Absolute Nucleated RBC Nucleated RBC % (auto) Anion Gap Estim Creat Clear Calc Estimated GFR Random Glucose Lactic Acid 2.9 H* Lactic Acid F/U @ 2Hr Cancelled Calcium Total Bilirubin Direct Bilirubin AST ALT Alkaline Phosphatase B-Natriuretic Peptide Total Protein Albumin Lipase Urine Color Urine Appearance Urine pH Ur Specific [place] Urine Protein Urine Glucose (UA) Urine Ketones Urine Blood Urine Nitrite Ur Leukocyte Esterase Influenza Type A (PCR) Influenza Type B (PCR) RSV RNA Qual (PCR) SARS-CoV-2 RNA (RT-PCR) Imaging Radiologist's Impressions: Impressions Chest X-Ray 01/13/25 11:14 IMPRESSION: Moderate to large left pleural effusion. Underlying atelectasis or pneumonia at the left lung base is not excluded. Electronically signed by: Isac Reddy MD 01/13/2025 12:32 PM EDT RP Cervical Spine CT 01/13/25 12:04 IMPRESSION: No acute fracture. New moderate left pleural effusion. Extensive pyrophosphate deposition in the cruciate ligament. 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 Stable nodular changes in the right apex including a calcified granuloma. Electronically signed by: Arron Andrea MD 01/13/2025 01:58 PM EDT RP Head CT 01/13/25 12:04 IMPRESSION: No acute intracranial abnormality. Improved changes of chronic pansinusitis. Electronically signed by: Arron Andrea MD 01/13/2025 02:01 PM EDT RP Chest CT 01/13/25 14:53 IMPRESSION: 1. Moderate to large left pleural effusion with compressive atelectasis and/or consolidation of the majority of the left lower lobe and posterior segment left upper lobe. Pneumonia cannot be excluded given the appearance. 2. There are stellate nodular abnormalities throughout both aerated lungs as described, suspicious. Some of these may be related to old granulomatous changes although the noncalcified lesions cannot be characterized as definitively benign. Cannot exclude neoplastic disease/metastases. 3. 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 4. Extensive calcified lymph nodes throughout the mediastinum and hilum in keeping with prior granulomatous disease. 5. Additional ancillary findings as discussed in the body of the report. Electronically signed by: Davis Reese MD 01/13/2025 04:38 PM EDT RP Assessment and Plan (1) Sepsis: Status: Acute (2) Pneumonia: Qualifiers: Laterality: left Lung location: lower lobe of lung Status: Acute (3) Pleural effusion: Status: Acute (4) Pulmonary nodule: Status: Acute (5) Bone lesion: Status: Acute (6) Frequent falls: Status: Acute Plan Patient is an 84-year-old male with a past medical history significant for CAD/CABG, HTN, HLD, bipolar, type 2 diabetes, history of breast cancer treated with surgery and radiation 10 years ago, who presented to the ED due to a witnessed mechanical fall earlier today due to dizziness. sepsis secondary to pneumonia with L sided pleural effusion (parapneumonic vs malignant) - WBC 13.2, tachycardic, afebrile, lactic acid 2.9, 2.3 on repeat, blood cultures x2 pending, not severe sepsis - chest x-ray with [id number] left pleural effusion. Underlying atelectasis or pneumonia at the left lung base is not excluded - chest CT with [id number] left pleural effusion with compressive atelectasis and/or consolidation of the majority of the left lower lobe and posterior segment of the left upper lobe. Pneumonia can not be excluded given the appearance. Stellate notch abnormalities throughout both aerated lungs, suspicious. Blastic osseous metastatic lesions throughout the spine and ribs. - COVID/flu/RSV negative - UA negative - lactic acid 2.9, 2.3 on repeat, received 1L IVF in ED, continue 50ml/hr, avoid fluid bolus due to pleural effusion - trop negative - EKG with a flutter, variable AV block, ventricular paced - BNP 118 - started on ceftriaxone and doxycycline in ED, continue - oncology consult - pulmonary consult - ultrasound-guided thoracentesis with labs ordered, will need cytology also ordered - echo - monitor on tele - follow CBC and BMP frequent falls/dizziness - head CT/c-spine CT negative for acute findings - consider PT/OT eval prior to discharge - echo - check orthostatics - monitor on tele chronic stable normocytic anemia - hemoglobin 12.6, hematocrit 30.9 - no obvious bleeding sources at this time - monitor CBC HTN - continue home meds when appropriate, currently normotensive HLD - statin Type 2 diabetes - hold metformin - diabetic diet - sliding scale insulin hx breast cancer - possible metastasis as above - oncology consult DNR/DNI VTE prophy: pneumoboots pending thoracentesis Pt with sepsis secondary to pneumonia with pleural effusion and new incidental findings of likely metastasis, requiring admission for at least 2 midnights stay for IV antibiotics, further evaluation and monitoring. Quality Stroke Does the patient have a stroke diagnosis?: No VTE Prior VTE?: No VTE Risk Level:: Medical - moderate - high VTE Device Contraindication: N/A - Device Ordered VTE Drug Contraindication: Treatment Not Indicated
[2025-01-13] MEDS: Lactated Ringers 1,000 ML 50 ML IVCONT (22:24)
[2025-01-13] MEDS: 0.9 % Sodium Chloride Flush 3 ML SYRINGE IVFLUSH (22:27)
[2025-01-13] MEDS: Latanoprost 0.005 % Ophth Sol 2.5 ML DROPS 1 DROP EYE-BOTH (22:32)
[2025-01-13 23:25] LABS: Reflex Lactate? Lactic Acid Added
[2025-01-14] VITALS (15 sets, daily range): BP systolic 103–162; BP diastolic 67–104; PULSE 100–112; RESP 16–22; TEMP 36.3–36.9; O2SAT 92–95
[2025-01-14 00:11] LABS: ~Lactic Acid-LAB USE ONLY 1.7 mmol/L (0.5-2.0)
--- NOTE | 2025-01-14 07:00 | CA_ITS ---
Transthoracic Echocardiogram Patient (Last, First, Middle): Kurt Henderson, Gender: Male Date of : 1940 Age: 84 Procedure Date: 01/14/2025 Procedure Type: Transthoracic E[place]ocardiogram [place] [facility] [place]: 177.8 cm Weight: 70.76 kg BSA: 1.88 m2 Heart Rate: 108 bpm BP: 134 / 93 mmHg Chief Payroll Clerk: QUINTEN Referring MD: Zahra Pinzon PA-C Coconut Boiler: David Perez MD Symptoms: pleural effusion Study Quality: Fair ECG Rhythm: Atrial flutter Conclusions: - 1. Moderately reduced LV ejection fraction of 35-40% 2. Cardiac valvular Dopplers within normal limits 3. Normal measured RV systolic pressure 4. No gross pericardial effusion Findings Left Ventricle Normal left ventricular cavity size. There is normal left ventricular wall thickness. The left ventricular systolic function is moderately decreased. The visually estimated ejection fraction is between 35-40%. There is evidence of regional wall motion abnormalities. Diastolic function is indeterminate on the basis of available data. Wall Motion Rest Echo Findings The apical septum and basal inferolateral segments are hypokinetic. The inferoseptal wall, the basal inferior, and mid inferior segments are akinetic. All other scored wall segments showed normal motion. Right Ventricle Normal right ventricular cavity size. There is severely decreased right ventricular systolic function. There is a pacemaker wire seen in the right ventricle. Atria The left atrium is normal in size. Interatrial shunt cannot be excluded. The right atrium is normal in size. A pacemaker wire is identified in the right atrium. Aortic Valve There is mild calcification of the aortic valve. There is no aortic valve stenosis. There is no aortic valve regurgitation. Mitral Valve There is mild anterior and posterior mitral leaflet thickening. There is mild mitral annular calcification. There is trace mitral valve regurgitation. There is no mitral valve stenosis. Pulmonic Valve The pulmonic valve was not well visualized. Tricuspid Valve Likely normal tricuspid valve structure and function. There is mild tricuspid valve regurgitation. Normal right atrial pressure. There is no evidence of pulmonary hypertension. Great Vessels The aorta was not well visualized. The pulmonary artery was not well visualized. Venous The inferior vena cava is normal in size and collapses greater than 50% with inspiration. Pericardium/Pleural There is no evidence of pericardial effusion. Prior Study Comparison Changes noted compared to prior study dated: 06/11/2020. LV systolic function in his reduced Measurements 2D Linear Measurements IVSd: 0.60 0.6-0.9/0.6-1.0 cm LVIDd: 3.92 3.9-5.3/4.2-5.9 cm LVIDd Index: 2.09 2.4-3.2/2.2-3.1 cm/m2 LVIDs: 3.30 2.0-3.6 cm LVPWd: 0.62 0.7-1.1 cm LA Diam: 4.00 2.7-3.8/3.0-4.0 cm LAIDs Index: 2.13 1.5-2.3 cm/m2 LV Mass: 78.67 67-162/88-224 g LV Mass Index: 41.84 43-95/49-115 g/m2 LVOT Diam: 2.10 3.0+(-)1.3 cm 2D Systolic Function EF 4C: 31.80 >55% EF 2C: 43.70 >55% EF BiP: 38.50 >55% Aortic Valve AoV Pk Ramana: 0.65 AoV Pk Grad: 2.00 RAFAELA: 2.90 LVOT LVOT Pk Ramana: 0.55 LVOT Mn Ramana: 0.39 LVOT VTI: 0.07 LVOT Pk Grad: 1.00 LVOT Mn Grad: 1.00 LVOT Diam: 2.10 LVOT Area: 3.46 Right Ventricle TAPSE (mm): 6.00 TVS' Ramana: 8.00 Tricuspid Valve TR Pk Ramana: 2.35 TR Pk Grad: 22.00 RA Press: 3.00 RVSP: 25.00 Great Vessels Aorta Sinus of Valsalva: 3.80 2.0-3.5 cm Pulmonary Valve PV Pk Ramana: 0.74 Peak PV Grad: 2.00 Updated in Other Vendor System with Status of Final David Perez MD electronically signed on 01/14/2025 11:44:24 AM with status of Final
[2025-01-14 07:24] LABS: MANUAL DIFF FLAG NO
[2025-01-14 07:27] LABS: Hematocrit 38.1 % (42.0-52.0); Hemoglobin 12.4 g/dl (14.0-18.0); Imm Gran Abs Auto 0.03 X10*3/uL (0.00-0.03); Imm Gran Pct Auto 0.3 % (0.0-0.4); Lymphocytes Absolute Auto 1.2 X10*3/uL (1.2-4.9); Mean Corpuscular HGB Conc 32.5 g/dl (31.0-36.0); Mean Corpuscular Hemoglobin 28.9 pg (27.0-33.0); Mean Corpuscular Volume 88.8 fL (80.0-98.0); NRBC Abs Auto 0.000 X10*3/uL (0.0-0.012); NRBC Pct Auto 0.0 /100WBC (0.0-0.2); Platelet Count 321 X10*3/uL (160-400); Red Blood Count 4.29 X10*6/uL (4.60-5.80); White Blood Count 11.3 X10*3/uL (4.8-10.8)
[2025-01-14 07:39] LABS: Glucose, Whole Blood 110 mg/dL (60-115)
[2025-01-14 07:55] LABS: Anion Gap 13 (12-20); Blood Urea Nitrogen 15 mg/dL (9-16); Calcium 9.4 mg/dL (8.4-10.2); Carbon Dioxide 22 mmol/L (22-29); Chloride 111 mmol/L (96-108); Creatinine Clr Calc Pharmacy 68.1; Estimated Glomerular Filt Rate > 60; Potassium 4.6 mmol/L (3.3-5.1); Sodium 141 mmol/L (135-145)
[2025-01-14 08:11] LABS: Carcinoembryonic Antigen 3.30 ng/mL
--- NOTE | 2025-01-14 08:55 | PM.CNPUL ---
History of Present Illness History of Present Illness Consult date: 01/14/25 Chief complaint: dizziness Narrative: This is an inpatient pulmonary consultation. The patient is an 84-year-old male with a past medical history significant for CAD/CABG, history of left sided breast cancer treated with surgery and radiation 10 years ago, who presented to the ED due to a witnessed mechanical fall earlier today due to dizziness. There was no head strike or loss of consciousness. Patient reports that he fell onto his left side. He is not having any pain at this time. He denies any chest pain, shortness of breath. Iin the ED his workup included a CT chest, personally reviewed by me, with moderate to large left pleural effusion with compressive atelectasis and/or consolidation of the majority of the left lower lobe and posterior segment left lower lobe. Pneumonia can not be excluded given the appearance. There are also stellate nodular abnormalities throughout both aerated lungs as described, suspicious. 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 Extensive calcified lymph nodes throughout the mediastinum and hilum in keeping with prior granulomatous disease. Head CT was negative for acute intracranial abnormality. Review of Systems Constitutional: Constitutional: Denies body ache(s), Denies chills, Denies fatigue, Reports frequent falls and Denies headache(s) Eyes: Eyes: Denies change in vision ENT: Denies headache(s) Cardiovascular: Cardiovascular: Denies chest pain, Denies rapid heart rate, Denies leg edema, Denies lightheadedness and Denies dyspnea Respiratory: Respiratory: Denies chest congestion, Denies cough, Denies dyspnea and Denies wheezing Gastrointestinal: Gastrointestinal: Denies abdominal pain, Denies nausea and Denies vomiting Genitourinary: Genitourinary: Denies dysuria and Denies urinary urgency Musculoskeletal: Musculoskeletal: Denies back pain Integumentary/Breasts: Skin/Breast: Denies rash Neurologic: Denies confusion, Reports frequent falls and Denies headache(s) Psychiatric: Psychiatric: Denies confusion Endocrine: Endocrine: Denies fatigue Hematologic/Lymphatic: Hematologic/Lymphatic: Denies easy bleeding and Denies easy bruising Allergic/Immunologic: Allergic/Immunologic: Denies wheezing PMFSH Past Medical History Medical History History of left breast cancer CAD (coronary artery disease) Cardiac pacemaker in situ Sick sinus syndrome HTN (hypertension) Diabetes Hyperlipidemia Family History Family History Father CVD (cardiovascular disease) Mother CVD (cardiovascular disease) Brother CVD (cardiovascular disease) Sister Diabetes Son Diabetes Surgical History Surgical History Hx of cataract surgery Hx of mastectomy History of permanent cardiac pacemaker placement Hx of CABG Social History Social History Household Members: Spouse Housing: Apartment Do you presently have visiting nurse or other home services: Yes (twice a week) Alcohol intake: never Patient Tobacco Use Status: Former Tobacco user Tobacco use type: Cigarette Have you been hit, kicked, punched, or otherwise hurt by someone within the past year? If so, by whom?: No Do you feel safe in your current relationship?: Yes Is there a partner from a previous relationship who is making you feel unsafe now?: No Are you made to feel afraid or neglected: No Advance Directives: Yes Advance Directives on File: Yes Advance Directives Date on File: 03/17/21 Do you have a plan to hurt others: No Plan Recently lost weight without trying: No service: No Sexual orientation: Straight/Heterosexual Meds Allergies Allergy/AdvReac Type Severity Reaction Status Date / Time Penicillins Allergy Unknown Unknown Verified 01/13/25 12:04 metoprolol AdvReac Intermediate bradycardia Verified 01/13/25 12:04 timolol AdvReac Intermediate low bp Verified 01/13/25 12:04 tamsulosin (From Flomax) AdvReac Mild Diarrhea Verified 01/13/25 12:04 beta blockers AdvReac Hypotension Uncoded 01/13/25 12:04 Active Medications: Current Medications Acetaminophen (Acetaminophen 325 Mg Tablet) 975 mg PO Q6H PRN PRN Reason: Pain, Mild 1-3,fever,headache Atorvastatin Calcium (Atorvastatin Calcium 80 Mg Tablet) 80 mg PO DAILY [facility] Bupropion HCl (Bupropion Hcl Xl 150 Mg Tab.Er.24h) 150 mg PO DAILY [facility] Calcium Carbonate (Calcium Carbonate 750 Mg Tab.Chew) 750 mg PO Q4H PRN PRN Reason: Heartburn Ceftriaxone Sodium (Ceftriaxone Sodium 2 Gm Vial) 2 gm IVPUSH Q24H [facility] Cyanocobalamin (Cyanocobalamin (Vitamin B-12) 1,000 Mcg Tablet) 1,000 mcg PO DAILY [facility] Dextrose (Dextrose 50 % 25 Gm/50 Ml Syringe) 25 gm IVPUSH Q15M PRN; Protocol PRN Reason: per Hypoglycemia Standing Ord. Finasteride (Finasteride 5 Mg Tablet) 5 mg PO DAILY [facility] Folic Acid (Folic Acid 1 Mg Tablet) 1 mg PO DAILY [facility] Glucose (Glucose Gel 15 Gm Gel..Gram.) 15 gm PO Q15M PRN; Protocol PRN Reason: per Hypoglycemia Standing Ord. Doxycycline Hyclate 100 mg/ (Sodium Chloride) 250 mls @ 166.67 mls/hr IV Q12H [facility] Last Infusion: 01/14/25 05:06 Dose: Infused Lactated Ringer's (Lr) 1,000 mls @ 50 mls/hr IVCONT .Q20H [facility] Last Admin: 01/13/25 22:24 Dose: 50 mls/hr Insulin Human Lispro (Insulin Lispro 100 Unit/Ml 3 Ml Vial) 0 unit SUBCUT QIDACHS [facility]; Protocol Last Admin: 01/14/25 08:22 Dose: Not Given Lamotrigine (Lamotrigine 25 Mg Tablet) 25 mg PO BID [facility] Last Admin: 01/13/25 22:26 Dose: 25 mg Latanoprost (Latanoprost 0.005 % Ophth [place] 2.5 Ml Drops) 1 drop EYE-BOTH BEDTIME [facility] Last Admin: 01/13/25 22:32 Dose: 1 drop Magnesium Hydroxide (Milk Of Magnesia 30 Ml Oral.Susp) 30 ml PO DAILY PRN PRN Reason: Constipation Melatonin (Melatonin 3 Mg Tablet) 6 mg PO BEDTIME PRN PRN Reason: Insomnia Olanzapine (Olanzapine 10 Mg Tablet) 10 mg PO BEDTIME [facility] Last Admin: 01/13/25 22:26 Dose: 10 mg Omeprazole (Omeprazole 20 Mg Capsule.Dr) 20 mg PO DAILY@0630 [facility] Last Admin: 01/14/25 05:41 Dose: 20 mg Ondansetron HCl (Ondansetron Hcl 4 Mg/2 Ml Vial) 4 mg IVPUSH Q8H PRN PRN Reason: Nausea and Vomiting Oxycodone HCl (Oxycodone Hcl Immed Release 5 Mg Tablet) 5 mg PO Q6H PRN PRN Reason: Pain, Severe (Pain Scale 7-10) Sodium Chloride (0.9 % Sodium Chloride Flush 3 Ml Syringe) 3 ml IVFLUSH QSHIFT [facility] Last Admin: 01/13/25 22:27 Dose: 3 ml Tamsulosin HCl (Tamsulosin Hcl 0.4 Mg Capsule) 0.4 mg PO BEDTIME [facility] Last Admin: 01/13/25 22:26 Dose: 0.4 mg Vitamin D (Cholecalciferol (Vitamin D3) 25 Mcg Tablet) 50 mcg PO DAILY [facility] Home Medications ?Medication ?Instructions ?Recorded ?Confirmed ?Last Taken ?Type bimatoprost 0.01 % eye drops 1 drp ophthalmic (eye) BEDTIME 05/28/20 01/13/25 01/12/25 History (Eulalio) bupropion HCl 150 mg 24 hr tablet, 150 mg PO DAILY 05/25/21 01/13/25 01/13/25 History extended release cyanocobalamin (vitamin B-12) 1,000 mcg PO DAILY 06/09/22 01/13/25 01/13/25 History 1,000 mcg tablet (Vitamin B-12) folic acid 1 mg tablet 1 mg PO DAILY 06/09/22 01/13/25 01/13/25 History metformin 500 mg tablet,extended 1,000 mg PO DAILY 07/05/22 01/13/25 01/13/25 History release 24 hr cholecalciferol (vitamin D3) 50 50 mcg PO DAILY 02/01/24 01/13/25 01/13/25 History mcg (2,000 unit) tablet pantoprazole 40 mg tablet,delayed 40 mg PO DAILY@0630 02/01/24 01/13/25 01/13/25 History release aspirin 81 mg tablet,delayed 162 mg PO DAILY 08/22/24 01/13/25 01/13/25 History release (Adult Aspirin Regimen) melatonin 5 mg tablet 5 mg PO BEDTIME PRN insomnia 01/13/25 01/13/25 Unknown History Physical Exam Vital Signs: Vital Signs: Last Vital Signs Temp 98.5 F 01/14/25 07:06 Pulse 102 H 01/14/25 07:06 Resp 18 01/14/25 07:06 BP 134/93 H 01/14/25 07:06 Pulse Ox 92 01/14/25 07:06 O2 Del Method Room Air 01/14/25 07:06 BMI result Body Mass Index 22.5 Const: General: cooperative and comfortable; No confusion Orientation/consciousness: No confusion HEENT: Head: Yes normocephalic Neck: Neck: Yes trachea midline, Yes supple and Yes no JVD Chest: Chest palpation & inspection: normal inspection of the chest (left breast tissue removed/atrophied. ) and Pacemaker present Breast/axilla inspection: normal inspection of the axillae Resp: Effort & Inspection: normal respiratory effort Auscultation: diminished lung sounds Cardio: Rate: regular rate Rhythm: regular rhythm Heart sounds: S1 normal heart sound present and S2 normal heart sound present GI: Palpation (GI): Soft to palpation Auscultation: normal bowel sounds Skin: General skin exam: no rashes or lesions noted Neuro: General: No confusion Extrem: General: Yes no clubbing, cyanosis or edema Psych: Appearance: grossly normal Results Laboratory Findings 01/14/25 07:19 01/14/25 07:19 Abnormal lab findings: Abnormal Labs 01/13/25 01/13/25 01/13/25 12:18 12:54 15:03 WBC 13.2 H RBC 4.43 L Hgb 12.6 L Hct 39.0 L MPV 9.2 L Immature Gran % (Auto) 0.5 H Neut % (Auto) 88.4 H Lymph % (Auto) 5.5 L Lymph # (Auto) 0.7 L Abs Immat Gran (auto) 0.06 H Absolute Neuts (auto) 11.6 H Chloride Random Glucose 177 H Lactic Acid 2.9 H* AST 52 H B-Natriuretic Peptide 118 H Total Protein 6.2 L 01/13/25 01/14/25 21:23 07:19 WBC 11.3 H RBC 4.29 L Hgb 12.4 L Hct 38.1 L MPV 9.2 L Immature Gran % (Auto) Neut % (Auto) 81.0 H Lymph % (Auto) 10.5 L Lymph # (Auto) Abs Immat Gran (auto) Absolute Neuts (auto) 9.2 H Chloride 111 H Random Glucose Lactic Acid 2.3 H* AST B-Natriuretic Peptide Total Protein Assessment and Plan (1) Pleural effusion: Status: Acute (2) Pulmonary nodule: Status: Acute (3) Pneumonia: Qualifiers: Laterality: left Lung location: lower lobe of lung Pneumonia type: due to unspecified organism Qualified Code(s): J18.9 - Pneumonia, unspecified organism Status: Acute (4) Weakness: Status: Acute Plan Agree with the diagnostic/therapeutic thoracentesis. The fluid may be loculated based on the appearence. If any evidence of a complicated loculation or lung entrapment, he may need to be evaluated by Thoracic surgery. continue with abx coverage Procedures Date of Service Date of Service: 01/14/25
[2025-01-14] MEDS: buPROPion HCl XL 150 MG TAB.ER.24H PO (09:46)
--- NOTE | 2025-01-14 10:29 | P.PNIM_ITS ---
Subjective Subjective Date of Service: 01/14/25 Interval History: No significant nursing events since admission Constitutional Constitutional: Denies body ache(s), Denies chills, Denies fatigue, Reports frequent falls and Denies headache(s) Eyes Eyes: Denies change in vision ENT Ears, Nose, Mouth, and Throat: Denies headache(s) Cardiovascular Cardiovascular: Denies chest pain, Denies rapid heart rate, Denies leg edema, Denies lightheadedness and Denies dyspnea Respiratory Respiratory: Denies chest congestion, Denies cough, Denies dyspnea and Denies wheezing Gastrointestinal Gastrointestinal: Denies abdominal pain, Denies nausea and Denies vomiting Genitourinary Genitourinary: Denies dysuria and Denies urinary urgency Musculoskeletal Musculoskeletal: Denies back pain Integumentary/Breasts Skin/Breast: Denies rash Neurologic Neurologic: Denies confusion, Reports frequent falls and Denies headache(s) Psychiatric Psychiatric: Denies confusion Endocrine Endocrine: Denies fatigue Hematologic/Lymphatic Hematologic/Lymphatic: Denies easy bleeding and Denies easy bruising Allergic/Immunologic Allergic/Immunologic: Denies wheezing Physical Exam 2 Exam: Exam: Middle-aged male lying in bed in no distress Neck supple, no JVD Regular rate and rhythm, S1-S2 heard Diminished left-sided lung sounds Abdomen soft nontender, no guarding, no rigidity Patient is awake, alert and oriented x3 ; no focal motor deficit Psych: Normal mood No pedal edema Vital Signs: Vital Signs: Last Vital Signs Temp 98.5 F 01/14/25 07:06 Pulse 102 H 01/14/25 07:06 Resp 18 01/14/25 07:06 BP 134/93 H 01/14/25 07:06 Pulse Ox 92 01/14/25 07:06 O2 Del Method Room Air 01/14/25 07:06 BMI result Body Mass Index 22.5 Const: General: No confusion Orientation/consciousness: No confusion Neuro: General: No confusion Objective Data Active Medications Acetaminophen (Acetaminophen 325 Mg Tablet) 975 mg PO Q6H PRN PRN Reason: Pain, Mild 1-3,fever,headache Atorvastatin Calcium (Atorvastatin Calcium 80 Mg Tablet) 80 mg PO DAILY [facility] Last Admin: 01/14/25 09:46 Dose: 80 mg Documented By: MILLIE Bupropion HCl (Bupropion Hcl Xl 150 Mg Tab.Er.24h) 150 mg PO DAILY [facility] Last Admin: 01/14/25 09:46 Dose: 150 mg Documented By: MILLIE Calcium Carbonate (Calcium Carbonate 750 Mg Tab.Chew) 750 mg PO Q4H PRN PRN Reason: Heartburn Ceftriaxone Sodium (Ceftriaxone Sodium 2 Gm Vial) 2 gm IVPUSH Q24H [facility] Cyanocobalamin (Cyanocobalamin (Vitamin B-12) 1,000 Mcg Tablet) 1,000 mcg PO DAILY [facility] Last Admin: 01/14/25 09:47 Dose: 1,000 mcg Documented By: MILLIE Dextrose (Dextrose 50 % 25 Gm/50 Ml Syringe) 25 gm IVPUSH Q15M PRN; Protocol PRN Reason: per Hypoglycemia Standing Ord. Finasteride (Finasteride 5 Mg Tablet) 5 mg PO DAILY [facility] Last Admin: 01/14/25 09:46 Dose: 5 mg Documented By: MILLIE Folic Acid (Folic Acid 1 Mg Tablet) 1 mg PO DAILY [facility] Last Admin: 01/14/25 09:46 Dose: 1 mg Documented By: MILLIE Glucose (Glucose Gel 15 Gm Gel..Gram.) 15 gm PO Q15M PRN; Protocol PRN Reason: per Hypoglycemia Standing Ord. Doxycycline Hyclate 100 mg/ (Sodium Chloride) 250 mls @ 166.67 mls/hr IV Q12H [facility] Last Infusion: 01/14/25 05:06 Dose: Infused Documented By: SONNY Lactated Ringer's (Lr) 1,000 mls @ 50 mls/hr IVCONT .Q20H [facility] Last Admin: 01/13/25 22:24 Dose: 50 mls/hr Documented By: SONNY Insulin Human Lispro (Insulin Lispro 100 Unit/Ml 3 Ml Vial) 0 unit SUBCUT QIDACHS [facility]; Protocol Last Admin: 01/14/25 08:22 Dose: Not Given Documented By: MILLIE Non-Admin Reason: No Insulin Coverage Lamotrigine (Lamotrigine 25 Mg Tablet) 25 mg PO BID [facility] Last Admin: 01/14/25 09:47 Dose: 25 mg Documented By: MILLIE Latanoprost (Latanoprost 0.005 % Ophth [place] 2.5 Ml Drops) 1 drop EYE-BOTH BEDTIME [facility] Last Admin: 01/13/25 22:32 Dose: 1 drop Documented By: SONNY Magnesium Hydroxide (Milk Of Magnesia 30 Ml Oral.Susp) 30 ml PO DAILY PRN PRN Reason: Constipation Melatonin (Melatonin 3 Mg Tablet) 6 mg PO BEDTIME PRN PRN Reason: Insomnia Olanzapine (Olanzapine 10 Mg Tablet) 10 mg PO BEDTIME [facility] Last Admin: 01/13/25 22:26 Dose: 10 mg Documented By: SONNY Omeprazole (Omeprazole 20 Mg Capsule.Dr) 20 mg PO DAILY@0630 [facility] Last Admin: 01/14/25 05:41 Dose: 20 mg Documented By: SONNY Ondansetron HCl (Ondansetron Hcl 4 Mg/2 Ml Vial) 4 mg IVPUSH Q8H PRN PRN Reason: Nausea and Vomiting Oxycodone HCl (Oxycodone Hcl Immed Release 5 Mg Tablet) 5 mg PO Q6H PRN PRN Reason: Pain, Severe (Pain Scale 7-10) Sodium Chloride (0.9 % Sodium Chloride Flush 3 Ml Syringe) 3 ml IVFLUSH QSHIFT [facility] Last Admin: 01/14/25 09:08 Dose: Not Given Documented By: MILLIE Non-Admin Reason: IV Running Tamsulosin HCl (Tamsulosin Hcl 0.4 Mg Capsule) 0.4 mg PO BEDTIME [facility] Last Admin: 01/13/25 22:26 Dose: 0.4 mg Documented By: SONNY Vitamin D (Cholecalciferol (Vitamin D3) 25 Mcg Tablet) 50 mcg PO DAILY [facility] Last Admin: 01/14/25 09:46 Dose: 50 mcg Documented By: MILLIE Labs 01/14/25 07:19 01/14/25 07:19 Labs: Laboratory Results - last 24 hr 01/13/25 01/13/25 01/13/25 12:18 12:54 13:31 MCV 88.0 MCH 28.4 MCHC 32.3 RDW 14.8 Plt Count 347 MPV 9.2 L Immature Gran % (Auto) 0.5 H Neut % (Auto) 88.4 H Lymph % (Auto) 5.5 L [place] % (Auto) 4.6 Eos % (Auto) 0.5 Baso % (Auto) 0.5 Lymph # (Auto) 0.7 L [place] # (Auto) 0.6 Eos # (Auto) 0.1 Baso # (Auto) 0.1 Abs Immat Gran (auto) 0.06 H Absolute Neuts (auto) 11.6 H Absolute Nucleated RBC 0.000 Nucleated RBC % (auto) 0.0 Anion Gap 14 Estim Creat Clear Calc 66.5 Estimated GFR > 60 POC Glucose Random Glucose 177 H Lactic Acid Lactic Acid F/U @ 2Hr Calcium 9.7 Total Bilirubin 0.8 Direct Bilirubin 0.3 AST 52 H ALT 37 Alkaline Phosphatase 101 Lactate Dehydrogenase B-Natriuretic Peptide 118 H Total Protein 6.2 L Albumin 3.7 Lipase 30 Carcinoembryonic Ag Urine Color Yellow Urine Appearance Clear Urine pH 5.5 Ur Specific [place] 1.010 Urine Protein Negative Urine Glucose (UA) Negative Urine Ketones Negative Urine Blood Negative Urine Nitrite Negative Ur Leukocyte Esterase Negative Influenza Type A (PCR) NEGATIVE Influenza Type B (PCR) NEGATIVE RSV RNA Qual (PCR) NEGATIVE SARS-CoV-2 RNA (RT-PCR) NEGATIVE 01/13/25 01/13/25 01/13/25 15:03 18:08 21:23 MCV MCH MCHC RDW Plt Count MPV Immature Gran % (Auto) Neut % (Auto) Lymph % (Auto) [place] % (Auto) Eos % (Auto) Baso % (Auto) Lymph # (Auto) [place] # (Auto) Eos # (Auto) Baso # (Auto) Abs Immat Gran (auto) Absolute Neuts (auto) Absolute Nucleated RBC Nucleated RBC % (auto) Anion Gap Estim Creat Clear Calc Estimated GFR POC Glucose Random Glucose Lactic Acid 2.9 H* 2.3 H* Lactic Acid F/U @ 2Hr Cancelled Calcium Total Bilirubin Direct Bilirubin AST ALT Alkaline Phosphatase Lactate Dehydrogenase B-Natriuretic Peptide Total Protein Albumin Lipase Carcinoembryonic Ag Urine Color Urine Appearance Urine pH Ur Specific [place] Urine Protein Urine Glucose (UA) Urine Ketones Urine Blood Urine Nitrite Ur Leukocyte Esterase Influenza Type A (PCR) Influenza Type B (PCR) RSV RNA Qual (PCR) SARS-CoV-2 RNA (RT-PCR) 01/13/25 01/14/25 01/14/25 23:45 07:10 07:19 MCV 88.8 MCH 28.9 MCHC 32.5 RDW 15.1 Plt Count 321 MPV 9.2 L Immature Gran % (Auto) 0.3 Neut % (Auto) 81.0 H Lymph % (Auto) 10.5 L [place] % (Auto) 6.6 Eos % (Auto) 1.1 Baso % (Auto) 0.5 Lymph # (Auto) 1.2 [place] # (Auto) 0.8 Eos # (Auto) 0.1 Baso # (Auto) 0.1 Abs Immat Gran (auto) 0.03 Absolute Neuts (auto) 9.2 H Absolute Nucleated RBC 0.000 Nucleated RBC % (auto) 0.0 Anion Gap 13 Estim Creat Clear Calc 68.1 Estimated GFR > 60 POC Glucose 110 Random Glucose 104 Lactic Acid Lactic Acid F/U @ 2Hr 1.7 Calcium 9.4 Total Bilirubin Direct Bilirubin AST ALT Alkaline Phosphatase Lactate Dehydrogenase 229 B-Natriuretic Peptide Total Protein Albumin Lipase Carcinoembryonic Ag 3.30 Urine Color Urine Appearance Urine pH Ur Specific [place] Urine Protein Urine Glucose (UA) Urine Ketones Urine Blood Urine Nitrite Ur Leukocyte Esterase Influenza Type A (PCR) Influenza Type B (PCR) RSV RNA Qual (PCR) SARS-CoV-2 RNA (RT-PCR) Assessment and Plan (1) Pleural effusion: Status: Acute Plan Patient is an 84-year-old male with a past medical history significant for CAD/CABG, HTN, HLD, bipolar, type 2 diabetes, history of breast cancer treated with surgery and radiation 10 years ago, who presented to the ED due to a witnessed mechanical fall #. 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 Diagnostic and therapeutic thoracentesis by IR today. Patient empirically on IV ceftriaxone and doxycycline ?parapneumonic effusion. Oncology and pulmonology on board. #. Frequent falls: Orthostatics negative. PT/OT to evaluate and treat #. Mixed hyperlipidemia: On statin #. Insulin-dependent diabetes mellitus: Initiating Accu-Cheks with sliding scale insulin #. Lactic acidosis due to metformin use #. CAD status post CABG: On aspirin and statin #. Disorder: Continue home mood stabilizers DNR/DNI Lovenox Reason for continued hospitalization: Evaluation of pleural effusion. Safe disposition Quality Stroke Does the patient have a stroke diagnosis?: No VTE Prior VTE?: No VTE Risk Level:: Medical - moderate - high VTE Device Contraindication: N/A - Device Ordered VTE Drug Contraindication: Treatment Not Indicated
[2025-01-14 10:44] LABS: Prostate Specific Antigen 0.85 ng/mL (<0.05-4.0)
[2025-01-14 11:22] LABS: Glucose, Whole Blood 107 mg/dL (60-115)
--- NOTE | 2025-01-14 12:14 | MHC.CM.PN ---
IMM 01/14/25, Pt. lives with his , he has home health services from [facility] 2 times a week to help pt. shower and do light housekeepig. [facility] [place] [facility]. For DME, he uses a walker. Family to transport home at [place]. PCP confirmed: Dr. Cuellar, HCP is on file and confirmed: his Yady. DCP: home with services. CM to follow for DC needs.
[2025-01-14] MEDS: Lidocaine HCl 1 % MPF 5 ML VIAL SUBCUT (12:51)
[2025-01-14 12:58] LABS: MN% 98.5 %; PMN% 1.5 %; WBC Pleural Fluid 1.603 X10*3/uL
--- NOTE | 2025-01-14 13:09 | P.CNHO_ITS ---
Subjective - Subjective Chief complaint: Probable metastatic cancer Patient: new to practice Consult date: 01/14/25 Primary Care Provider: Teresa Duran MD [employer] A[employer] Utilized?: No - Lao Speaking HPI - Consult Narrative Reason for consult: Probable metastatic malignancy Narrative: Kurt Henderson is a 84 year old male with past medical history significant for major depression, left breast cancer status post treatment in 2017, coronary artery disease status post CABG who has been diagnosed with large left pleural effusion and suspicious lung nodules as well as blastic osseous lesions in the spine and ribs. His past medical history significant for left breast cancer that was diagnosed in 2017. He underwent surgery in [place], lumpectomy followed by adjuvant radiation therapy. He was briefly tried on tamoxifen but because of major depression, this was discontinued. He was tested for BRCA mutation as well as extended genetic panel testing which was reportedly negative. Patient has had progressive worsening of his mental health, he has had several admissions to [facility]. He has declined considerably as per family in the last few months. He has been losing weight gradually. He has had a few falls, all of this because of deconditioning and generalized weakness. Patient was asked to go to emergency room after his fall yesterday by surplus property disposal agent. He did not have any dizziness or loss of consciousness. Workup in the ED with a chest x-ray showed [id number] left pleural effusion. Subsequent CT chest demonstrated additional nodular lesions in both lungs as well as blastic osseous metastatic lesions throughout spine and ribs. Review of Systems - Neurologic Denies confusion, Reports frequent falls, Denies headache(s) [facility] Medical History: Medical History (Last Reviewed 01/14/25 @ 14:52 by Mary Sweeney, DEDE) CAD (coronary artery disease) Cardiac pacemaker in situ Diabetes History of left breast cancer HTN (hypertension) Hyperlipidemia Sick sinus syndrome Functional capacity: uses cane/walker Family History: Family History (Last Reviewed 01/14/25 @ 00:42 by SCOTT Neville) Father CVD (cardiovascular disease) Mother CVD (cardiovascular disease) Brother CVD (cardiovascular disease) Sister Diabetes Son Diabetes Surgical History: Surgical History (Last Reviewed 01/14/25 @ 14:52 by Mary Sweeney, PT) History of permanent cardiac pacemaker placement Hx of CABG Hx of cataract surgery Hx of mastectomy Social History: Social History (Last Reviewed 01/14/25 @ 00:42 by MAMIE Neville Living Situation History: Household Members: Spouse Housing: Apartment Do you presently have visiting nurse or other home services: Yes Do you presently have visiting nurse or other home services comment: twice a week Alcohol History Details: 1. How often do you have a drink containing alcohol?: b. Monthly or less AUDIT-C Alcohol total score: 1 Currently Displaying Signs/Symptoms of Alcohol Withdrawal: No Tobacco History: Patient Tobacco Use Status: Former Tobacco user Tobacco use type: Cigarette Substance Use History: Currently Displaying Signs/Symptoms of Drug Intoxication Withdrawal: No Domestic Abuse History: Have you been hit, kicked, punched, or otherwise hurt by someone within the past year? If so, by whom?: No Do you feel safe in your current relationship?: Yes Is there a partner from a previous relationship who is making you feel unsafe now?: No Are you made to feel afraid or neglected: No Advance Directives: Advance Directives: Yes Advance Directives on File: Yes Advance Directives Date on File: 03/17/21 Homicidal Assessment: Do you have a plan to hurt others: No Plan Nutrition Assessment: Recently lost weight without trying: No Occupation Assessmet: service: No Sex/Gender Assessment: Sexual orientation: Straight/Heterosexual Home Medications and Allergies Current Medications: Current Medications Acetaminophen (Acetaminophen 325 Mg Tablet) 975 mg PO Q6H PRN PRN Reason: Pain, Mild 1-3,fever,headache Atorvastatin Calcium (Atorvastatin Calcium 80 Mg Tablet) 80 mg PO DAILY [facility] Last Admin: 01/14/25 09:46 Dose: 80 mg Bupropion HCl (Bupropion Hcl Xl 150 Mg Tab.Er.24h) 150 mg PO DAILY [facility] Last Admin: 01/14/25 09:46 Dose: 150 mg Calcium Carbonate (Calcium Carbonate 750 Mg Tab.Chew) 750 mg PO Q4H PRN PRN Reason: Heartburn Ceftriaxone Sodium (Ceftriaxone Sodium 2 Gm Vial) 2 gm IVPUSH Q24H [facility] Cyanocobalamin (Cyanocobalamin (Vitamin B-12) 1,000 Mcg Tablet) 1,000 mcg PO DAILY [facility] Last Admin: 01/14/25 09:47 Dose: 1,000 mcg Dextrose (Dextrose 50 % 25 Gm/50 Ml Syringe) 25 gm IVPUSH Q15M PRN; Protocol PRN Reason: per Hypoglycemia Standing Ord. Enoxaparin Sodium (Enoxaparin Sodium 40 Mg/0.4 Ml Syringe) 40 mg SUBCUT Q24H [facility] Finasteride (Finasteride 5 Mg Tablet) 5 mg PO DAILY [facility] Last Admin: 01/14/25 09:46 Dose: 5 mg Folic Acid (Folic Acid 1 Mg Tablet) 1 mg PO DAILY [facility] Last Admin: 01/14/25 09:46 Dose: 1 mg Glucose (Glucose Gel 15 Gm Gel..Gram.) 15 gm PO Q15M PRN; Protocol PRN Reason: per Hypoglycemia Standing Ord. Doxycycline Hyclate 100 mg/ (Sodium Chloride) 250 mls @ 166.67 mls/hr IV Q12H [facility] Last Infusion: 01/14/25 05:06 Dose: Infused Lactated Ringer's (Lr) 1,000 mls @ 50 mls/hr IVCONT .Q20H [facility] Last Admin: 01/13/25 22:24 Dose: 50 mls/hr Insulin Human Lispro (Insulin Lispro 100 Unit/Ml 3 Ml Vial) 0 unit SUBCUT QIDACHS [facility]; Protocol Last Admin: 01/14/25 11:44 Dose: Not Given Lamotrigine (Lamotrigine 25 Mg Tablet) 25 mg PO BID [facility] Last Admin: 01/14/25 09:47 Dose: 25 mg Latanoprost (Latanoprost 0.005 % Ophth [place] 2.5 Ml Drops) 1 drop EYE-BOTH BEDTIME [facility] Last Admin: 01/13/25 22:32 Dose: 1 drop Magnesium Hydroxide (Milk Of Magnesia 30 Ml Oral.Susp) 30 ml PO DAILY PRN PRN Reason: Constipation Melatonin (Melatonin 3 Mg Tablet) 6 mg PO BEDTIME PRN PRN Reason: Insomnia Olanzapine (Olanzapine 10 Mg Tablet) 10 mg PO BEDTIME [facility] Last Admin: 01/13/25 22:26 Dose: 10 mg Omeprazole (Omeprazole 20 Mg Capsule.Dr) 20 mg PO DAILY@0630 [facility] Last Admin: 01/14/25 05:41 Dose: 20 mg Ondansetron HCl (Ondansetron Hcl 4 Mg/2 Ml Vial) 4 mg IVPUSH Q8H PRN PRN Reason: Nausea and Vomiting Oxycodone HCl (Oxycodone Hcl Immed Release 5 Mg Tablet) 5 mg PO Q6H PRN PRN Reason: Pain, Severe (Pain Scale 7-10) Sodium Chloride (0.9 % Sodium Chloride Flush 3 Ml Syringe) 3 ml IVFLUSH QSHIFT [facility] Last Admin: 01/14/25 09:08 Dose: Not Given Tamsulosin HCl (Tamsulosin Hcl 0.4 Mg Capsule) 0.4 mg PO BEDTIME [facility] Last Admin: 01/13/25 22:26 Dose: 0.4 mg Vitamin D (Cholecalciferol (Vitamin D3) 25 Mcg Tablet) 50 mcg PO DAILY [facility] Last Admin: 01/14/25 09:46 Dose: 50 mcg Home Medications ?Medication ?Instructions ?Recorded ?Confirmed ?Type bimatoprost 0.01 % eye drops 1 drp ophthalmic (eye) BEDTIME 05/28/20 01/13/25 History (Eulalio) bupropion HCl 150 mg 24 hr tablet, 150 mg PO DAILY 05/25/21 01/13/25 Histor y extended release cyanocobalamin (vitamin B-12) 1,000 mcg PO DAILY 06/09/22 01/13/25 His tory 1,000 mcg tablet (Vitamin B-12) folic acid 1 mg tablet 1 mg PO DAILY 06/09/22 01/13/25 History metformin 500 mg tablet,extended 1,000 mg PO DAILY 07/05/22 01/13/25 Hist ory release 24 hr cholecalciferol (vitamin D3) 50 50 mcg PO DAILY 02/01/24 01/13/25 Histor y mcg (2,000 unit) tablet pantoprazole 40 mg tablet,delayed 40 mg PO DAILY@0630 02/01/24 01/13/25 Hi story release aspirin 81 mg tablet,delayed 162 mg PO DAILY 08/22/24 01/13/25 Histor y release (Adult Aspirin Regimen) melatonin 5 mg tablet 5 mg PO BEDTIME PRN insomnia 01/13/25 History Allergies Allergy/AdvReac Type Severity Reaction Status Date / Time Penicillins Allergy Unknown Unknown Verified 01/13/25 12:04 metoprolol AdvReac Intermediate bradycardia Verified 01/13/25 12:04 timolol AdvReac Intermediate low bp Verified 01/13/25 12:04 tamsulosin (From Flomax) AdvReac Mild Diarrhea Verified 01/13/25 12:04 beta blockers AdvReac Hypotension Uncoded 01/13/25 12:04 Physical Exam Vital signs: Vital Signs Temp 98.3 F 01/14/25 10:43 Pulse 111 H 01/14/25 12:20 Resp 22 H 01/14/25 12:20 BP 136/101 H 01/14/25 12:20 Pulse Ox 95 01/14/25 12:20 O2 Del Method Room Air 01/14/25 12:20 Intake & Output 01/13/25 01/14/25 01/14/25 18:59 06:59 18:59 Intake Total 1350 / 1350 Output Total 100 / 100 Balance 1250 / 1250 Urine Output (Average ml/kg/hr) 0.12 0.12 Intake: Intake, Oral Amount 100 / 100 Intake, IV Amount 1250 / 1250 0.9 % Sodium Chloride 1,000 ml 1000 / 1000 @ 250 mls/hr IV .Q4H [facility] Rx#: [id number] Doxycycline Hyclate 100 mg In 0 250 / 250 .9 % Sodium Chloride 250 ml @ 166.67 mls/hr IV Q12H [facility] Rx#: [id number] Output: Output, Urine Amount 100 / 100 Other: Number of Incontinent Voids 1 Number of Bowel Movements 0 Urine Color Yellow Last Bowel Movement 01/12/25 01/12/25 Weight 90.718 kg 71.1 kg Weight 71.1 kg - Constitutional Present: no acute distress - Routine HEENT Exam Head: Present: normal inspection Eye: Present: EOMI - Routine Neck Exam Present: supple. Absent: lymphadenopathy - Routine Respiratory Exam Present: decreased breath sounds - Routine Cardiovascular Exam Cardiovascular: Present: S1, S2 - Routine Abdominal Exam Absent: mass - Routine Extremities Exam Present: pulses intact - Routine Skin Exam Present: intact - Routine Neurological Exam Present: alert Hem/Onc Consult Result - Labs CBC & Chem 7: 01/15/25 06:53 01/15/25 06:53 Labs: Short CBC 01/14/25 Range/Units 07:19 WBC 11.3 H (4.8-10.8) X10*3/uL Hgb 12.4 L (14.0-18.0) g/dl Hct 38.1 L (42.0-52.0) % Plt Count 321 (160-400) X10*3/uL BMP 01/13/25 01/14/25 12:54 07:19 Sodium 139 141 Potassium 4.5 4.6 Chloride 106 111 H Carbon Dioxide 24 22 BUN 15 15 Creatinine 0.97 0.84 Calcium 9.7 9.4 Liver Function 01/13/25 Range/Units 12:54 Total Bilirubin 0.8 (0.0-1.0) mg/dL Direct Bilirubin 0.3 (0.0-0.5) mg/dL AST 52 H (5-37) U/L ALT 37 (0-40) U/L Alkaline Phosphatase 101 (39-117) U/L Albumin 3.7 (3.5-5.0) g/dL Urine 01/13/25 Range/Units 13:31 Urine Color Yellow Urine Appearance Clear Urine pH 5.5 (5.0-9.0) Ur Specific [place] 1.010 (1.005-1.025) Urine Protein Negative (Neg-Trace) mg/dL Urine Glucose (UA) Negative (Negative) mg/dL Assessment and Plan Patient Active problem list reviewed?: Yes (1) Bone lesion Status: Acute Assessment and plan: 1. This is a 84-year-old male with multiple comorbidities including major depression/bipolar disorder, history of left breast cancer in 2017 who is admitted after a fall. Patient has been getting progressively weak and has had intermittent dizzy episodes and falls. Imaging in the ED, chest x-ray revealed a large left pleural effusion, subsequent CT chest demonstrated left pleural effusion along with compressive atelectasis of the left lower lobe. Stellate nodular abnormalities diffusely in the right lung as well as [place] left upper lobe. Multiple bone lesions in the spine and ribs concerning for metastasis. Patient has been scheduled for left diagnostic and therapeutic paracentesis. Had a long conversation with patient's in 3 of his daughters. They would like to pursue diagnostic workup but understand that with his comorbidities and performance status, they would not pursue any active treatment. They are hoping to take him to rehabilitation as he has been declining at home. Possibilities here metastatic lung, recurrent breast cancer or gastrointestinal primary. Await pleural fluid cytology. I thank you for the consultation. - Time Spent With Patient Time Spent with Patient (in minutes): 45 Additional Coding: - Additional E/M codes Complex E/M visit Add On: CPT G2211
[2025-01-14 14:00] LABS: BF Shift QC OK YES; Man Diluent Bkgrd OK YES
[2025-01-14 14:02] LABS: Eosinophils Pleural Fluid 1 %; Lymphocytes Pleural Fluid 78 %; Monocytes Pleural Fluid 7 %; Neutrophils Pleural Fluid 3 %; Other Cells Plerual Fl 11 %
[2025-01-14] MEDS: 0.9 % Sodium Chloride Flush 3 ML SYRINGE IVFLUSH ×2 (15:14→20:48)
[2025-01-14 16:37] LABS: Glucose, Whole Blood 120 mg/dL (60-115)
[2025-01-14] MEDS: Lactated Ringers 1,000 ML 50 ML IVCONT (17:23)
[2025-01-14] MEDS: Latanoprost 0.005 % Ophth Sol 2.5 ML DROPS 1 DROP EYE-BOTH (20:43)
[2025-01-14 20:44] LABS: Glucose, Whole Blood 129 mg/dL (60-115)
[2025-01-15] VITALS (14 sets, daily range): BP systolic 110–159; BP diastolic 66–90; PULSE 81–119; RESP 16–20; TEMP 36.1–36.6; O2SAT 91–93
[2025-01-15 07:14] LABS: MANUAL DIFF FLAG NO
[2025-01-15 07:25] LABS: Albumin Pleural Fluid 2.7
[2025-01-15 07:26] LABS: Hematocrit 38.0 % (42.0-52.0); Hemoglobin 12.4 g/dl (14.0-18.0); Imm Gran Abs Auto 0.06 X10*3/uL (0.00-0.03); Imm Gran Pct Auto 0.5 % (0.0-0.4); Lymphocytes Absolute Auto 0.8 X10*3/uL (1.2-4.9); Mean Corpuscular HGB Conc 32.6 g/dl (31.0-36.0); Mean Corpuscular Hemoglobin 28.8 pg (27.0-33.0); Mean Corpuscular Volume 88.4 fL (80.0-98.0); NRBC Abs Auto 0.000 X10*3/uL (0.0-0.012); NRBC Pct Auto 0.0 /100WBC (0.0-0.2); Platelet Count 301 X10*3/uL (160-400); Red Blood Count 4.30 X10*6/uL (4.60-5.80); White Blood Count 11.7 X10*3/uL (4.8-10.8)
[2025-01-15 07:44] LABS: Anion Gap 13 (12-20); Blood Urea Nitrogen 15 mg/dL (9-16); Calcium 9.0 mg/dL (8.4-10.2); Carbon Dioxide 22 mmol/L (22-29); Chloride 110 mmol/L (96-108); Creatinine Clr Calc Pharmacy 67.3; Estimated Glomerular Filt Rate > 60; Potassium 4.0 mmol/L (3.3-5.1); Sodium 141 mmol/L (135-145)
[2025-01-15 08:02] LABS: Glucose, Whole Blood 145 mg/dL (60-115)
[2025-01-15 08:20] LABS: Folate 14.6 ng/mL (> or = 4.0); Vitamin B12 1441 pg/mL (200-900)
[2025-01-15] MEDS: buPROPion HCl XL 150 MG TAB.ER.24H PO (09:17)
--- NOTE | 2025-01-15 09:18 | P.PNPL_ITS ---
Subjective Subjective Date of Service: 01/15/25 Interval history: The patient was seen on exam. He is status post thoracentesis draining about 1 L out of omid looking fluid. Lymphocytic predominant concerning for malignant process. Post procedure x-ray appeared that his lung volume of the left was diminished but the the effusion cleared. No evidence of any lung trapping which is reassuring. Today he appears to be more tachycardic. He continues to be tachypneic. Breath sounds are diminished on the left. Will go ahead and we examined the area with a repeat x-ray. Objective Data Labs 01/15/25 06:53 01/15/25 06:53 Labs: Laboratory Results - last 24 hr 01/14/25 01/14/25 01/14/25 07:19 11:07 12:15 WBC RBC Hgb Hct MCV MCH MCHC RDW Plt Count MPV Immature Gran % (Auto) Neut % (Auto) Lymph % (Auto) [place] % (Auto) Eos % (Auto) Baso % (Auto) Lymph # (Auto) [place] # (Auto) Eos # (Auto) Baso # (Auto) Abs Immat Gran (auto) Absolute Neuts (auto) Absolute Nucleated RBC Nucleated RBC % (auto) Sodium Potassium Chloride Carbon Dioxide Anion Gap BUN Creatinine Estim Creat Clear Calc Estimated GFR POC Glucose 107 Random Glucose Calcium Prostate Specific Ag 0.85 Vitamin B12 Folate Pleural pH 7.38 Pleural WBC 1.603 Pleural RBC 0.005 Pleural Neutrophils 3 Pleural Lymphocytes 78 Pleural Monocytes 7 Pleural Eosinophils 1 Pleural Other Cells 11 Pleural Total Protein 3.9 Pleural Albumin 2.7 Pleural LDH 149 Pleural Glucose 107 Pleural Amylase 67 01/14/25 01/14/25 01/15/25 16:07 20:41 06:53 WBC 11.7 H RBC 4.30 L Hgb 12.4 L Hct 38.0 L MCV 88.4 MCH 28.8 MCHC 32.6 RDW 15.0 Plt Count 301 MPV 9.5 Immature Gran % (Auto) 0.5 H Neut % (Auto) 85.1 H Lymph % (Auto) 6.9 L [place] % (Auto) 6.1 Eos % (Auto) 1.0 Baso % (Auto) 0.4 Lymph # (Auto) 0.8 L [place] # (Auto) 0.7 Eos # (Auto) 0.1 Baso # (Auto) 0.1 Abs Immat Gran (auto) 0.06 H Absolute Neuts (auto) 9.9 H Absolute Nucleated RBC 0.000 Nucleated RBC % (auto) 0.0 Sodium 141 Potassium 4.0 Chloride 110 H Carbon Dioxide 22 Anion Gap 13 BUN 15 Creatinine 0.85 Estim Creat Clear Calc 67.3 Estimated GFR > 60 POC Glucose 120 H 129 H Random Glucose 123 H Calcium 9.0 Prostate Specific Ag Vitamin B12 1441 H Folate 14.6 Pleural pH Pleural WBC Pleural RBC Pleural Neutrophils Pleural Lymphocytes Pleural Monocytes Pleural Eosinophils Pleural Other Cells Pleural Total Protein Pleural Albumin Pleural LDH Pleural Glucose Pleural Amylase 01/15/25 07:49 WBC RBC Hgb Hct MCV MCH MCHC RDW Plt Count MPV Immature Gran % (Auto) Neut % (Auto) Lymph % (Auto) [place] % (Auto) Eos % (Auto) Baso % (Auto) Lymph # (Auto) [place] # (Auto) Eos # (Auto) Baso # (Auto) Abs Immat Gran (auto) Absolute Neuts (auto) Absolute Nucleated RBC Nucleated RBC % (auto) Sodium Potassium Chloride Carbon Dioxide Anion Gap BUN Creatinine Estim Creat Clear Calc Estimated GFR POC Glucose 145 H Random Glucose Calcium Prostate Specific Ag Vitamin B12 Folate Pleural pH Pleural WBC Pleural RBC Pleural Neutrophils Pleural Lymphocytes Pleural Monocytes Pleural Eosinophils Pleural Other Cells Pleural Total Protein Pleural Albumin Pleural LDH Pleural Glucose Pleural Amylase Microbiology Microbiology Results: Microbiology 01/14/25 12:15 Thoracentesis Fluid Gram Stain - Final 01/14/25 12:15 Thoracentesis Fluid Anaerobic Culture - Preliminary No growth to date. 01/14/25 12:15 Thoracentesis Fluid Body Fluid Culture - Preliminary No growth after 1 day 01/13/25 15:03 Blood - Venous Blood Culture - Preliminary No growth after 24 hours. 01/13/25 15:03 Blood - Venous Blood Culture - Preliminary No growth after 24 hours. Review of Systems Constitutional: Denies body ache(s), Denies chills, Denies fatigue, Reports frequent falls and Denies headache(s) Eyes: Denies change in vision Denies headache(s) Cardiovascular: Denies chest pain, Denies rapid heart rate, Denies leg edema, Denies lightheadedness and Denies dyspnea Respiratory: Denies chest congestion, Denies cough, Denies dyspnea and Denies wheezing Gastrointestinal: Denies abdominal pain, Denies nausea and Denies vomiting Genitourinary: Denies dysuria and Denies urinary urgency Musculoskeletal: Denies back pain Skin/Breast: Denies rash Denies confusion, Reports frequent falls and Denies headache(s) Psychiatric: Denies confusion Endocrine: Denies fatigue Hematologic/Lymphatic: Denies easy bleeding and Denies easy bruising Allergic/Immunologic: Denies wheezing Physical Exam 2 Vital Signs: Vital Signs: Last Vital Signs Temp 97.5 F 01/15/25 08:00 Pulse 115 H 01/15/25 08:21 Resp 20 01/15/25 08:00 BP 123/82 01/15/25 08:21 Pulse Ox 93 01/15/25 08:00 O2 Del Method Room Air 01/15/25 08:00 BMI result Body Mass Index 22.5 Const: General: No confusion Orientation/consciousness: No confusion HEENT: Head: Yes normocephalic Neck: Neck: Yes trachea midline, Yes supple and Yes no JVD Chest: Chest palpation & inspection: normal inspection of the chest (left breast tissue removed/atrophied. ) and Pacemaker present Breast/axilla inspection: normal inspection of the axillae Resp: Effort & Inspection: normal respiratory effort Auscultation: d iminished lung sounds Cardio: Rate: regular rate Rhythm: regular rhythm Heart sounds: S1 normal heart sound present and S2 normal heart sound present GI: Palpation (GI): Soft to palpation Auscultation: normal bowel sounds Skin: General skin exam: no rashes or lesions noted Neuro: General: No confusion Extrem: General: Yes no clubbing, cyanosis or edema Psych: Appearance: grossly normal Procedures Date of Service Date of Service: 01/15/25 Assessment and Plan Assessment and plan (1) Pleural effusion: Status: Acute (2) Pulmonary nodule: Status: Acute (3) Pneumonia: Status: Acute Plan Deescalate antibiotics to by mouth to complete 10 day course Repeat chest x-ray today, there is a potential for the fluid to reoccur the question is how quickly. Awaiting pleural fluid results specially cytology concerning for malignant process. Supplemental oxygen to keep pulse ox above 90% Diuresis as tolerated Time Spent With Patient Time: Total time managing care of this patient today ____ minutes. Progress Note: Quality Stroke Does the patient have a stroke diagnosis?: No
--- NOTE | 2025-01-15 10:15 | HO.PM.IMPN ---
Subjective Subjective Date of Service: 01/15/25 Interval History: Patient underwent thoracentesis yesterday, approximately 1 L omid color fluid was drained. He has no acute complaints at this time. Constitutional Constitutional: Denies body ache(s), Denies chills, Denies fatigue, Reports frequent falls and Denies headache(s) Eyes Eyes: Denies change in vision ENT Ears, Nose, Mouth, and Throat: Denies headache(s) Cardiovascular Cardiovascular: Denies chest pain, Denies rapid heart rate, Denies leg edema, Denies lightheadedness and Denies dyspnea Respiratory Respiratory: Denies chest congestion, Denies cough, Denies dyspnea and Denies wheezing Gastrointestinal Gastrointestinal: Denies abdominal pain, Denies nausea and Denies vomiting Genitourinary Genitourinary: Denies dysuria and Denies urinary urgency Musculoskeletal Musculoskeletal: Denies back pain Integumentary/Breasts Skin/Breast: Denies rash Neurologic Neurologic: Reports frequent falls and Denies headache(s) Endocrine Endocrine: Denies fatigue Hematologic/Lymphatic Hematologic/Lymphatic: Denies easy bleeding and Denies easy bruising Allergic/Immunologic Allergic/Immunologic: Denies wheezing Physical Exam Exam: Exam: Middle-aged male lying in bed in no distress Neck supple, no JVD Regular rate and rhythm, S1-S2 heard Diminished left-sided lung sounds Abdomen soft nontender, no guarding, no rigidity Patient is awake, alert and oriented x3 ; no focal motor deficit Psych: Normal mood No pedal edema Vital Signs: Vital Signs: Last Vital Signs Temp 97.5 F 01/15/25 08:00 Pulse 115 H 01/15/25 08:21 Resp 20 01/15/25 08:00 BP 123/82 01/15/25 08:21 Pulse Ox 93 01/15/25 08:00 O2 Del Method Room Air 01/15/25 08:00 BMI result Body Mass Index 22.5 Objective Data Active Medications Acetaminophen (Acetaminophen 325 Mg Tablet) 975 mg PO Q6H PRN PRN Reason: Pain, Mild 1-3,fever,headache Atorvastatin Calcium (Atorvastatin Calcium 80 Mg Tablet) 80 mg PO DAILY [facility] Last Admin: 01/15/25 09:16 Dose: 80 mg Documented By: TONEY Bupropion HCl (Bupropion Hcl Xl 150 Mg Tab.Er.24h) 150 mg PO DAILY [facility] Last Admin: 01/15/25 09:17 Dose: 150 mg Documented By: TONEY Calcium Carbonate (Calcium Carbonate 750 Mg Tab.Chew) 750 mg PO Q4H PRN PRN Reason: Heartburn Ceftriaxone Sodium (Ceftriaxone Sodium 2 Gm Vial) 2 gm IVPUSH Q24H [facility] Last Admin: 01/14/25 15:14 Dose: 2 gm Documented By: MILLIE Cyanocobalamin (Cyanocobalamin (Vitamin B-12) 1,000 Mcg Tablet) 1,000 mcg PO DAILY [facility] Last Admin: 01/15/25 09:18 Dose: 1,000 mcg Documented By: TONEY Dextrose (Dextrose 50 % 25 Gm/50 Ml Syringe) 25 gm IVPUSH Q15M PRN; Protocol PRN Reason: per Hypoglycemia Standing Ord. Enoxaparin Sodium (Enoxaparin Sodium 40 Mg/0.4 Ml Syringe) 40 mg SUBCUT Q24H [facility] Last Admin: 01/15/25 09:18 Dose: 40 mg Documented By: TONEY Finasteride (Finasteride 5 Mg Tablet) 5 mg PO DAILY [facility] Last Admin: 01/15/25 09:18 Dose: 5 mg Documented By: TONEY Folic Acid (Folic Acid 1 Mg Tablet) 1 mg PO DAILY [facility] Last Admin: 01/15/25 09:17 Dose: 1 mg Documented By: TONEY Glucose (Glucose Gel 15 Gm Gel..Gram.) 15 gm PO Q15M PRN; Protocol PRN Reason: per Hypoglycemia Standing Ord. Doxycycline Hyclate 100 mg/ (Sodium Chloride) 250 mls @ 166.67 mls/hr IV Q12H [facility] Last Infusion: 01/15/25 07:55 Dose: Infused Documented By: KACIE Insulin Human Lispro (Insulin Lispro 100 Unit/Ml 3 Ml Vial) 0 unit SUBCUT QIDACHS [facility]; Protocol Last Admin: 01/15/25 08:05 Dose: Not Given Documented By: KACIE Non-Admin Reason: No Insulin Coverage Lamotrigine (Lamotrigine 25 Mg Tablet) 25 mg PO BID [facility] Last Admin: 01/15/25 09:17 Dose: 25 mg Documented By: TONEY Latanoprost (Latanoprost 0.005 % Ophth [place] 2.5 Ml Drops) 1 drop EYE-BOTH BEDTIME [facility] Last Admin: 01/14/25 20:43 Dose: 1 drop Documented By: SERENITY Magnesium Hydroxide (Milk Of Magnesia 30 Ml Oral.Susp) 30 ml PO DAILY PRN PRN Reason: Constipation Melatonin (Melatonin 3 Mg Tablet) 6 mg PO BEDTIME PRN PRN Reason: Insomnia Last Admin: 01/14/25 20:43 Dose: 6 mg Documented By: SERENITY Olanzapine (Olanzapine 10 Mg Tablet) 10 mg PO BEDTIME [facility] Last Admin: 01/14/25 20:43 Dose: 10 mg Documented By: SERENITY Omeprazole (Omeprazole 20 Mg Capsule.Dr) 20 mg PO DAILY@0630 [facility] Last Admin: 01/15/25 05:27 Dose: 20 mg Documented By: SERENITY Ondansetron HCl (Ondansetron Hcl 4 Mg/2 Ml Vial) 4 mg IVPUSH Q8H PRN PRN Reason: Nausea and Vomiting Oxycodone HCl (Oxycodone Hcl Immed Release 5 Mg Tablet) 5 mg PO Q6H PRN PRN Reason: Pain, Severe (Pain Scale 7-10) Sodium Chloride (0.9 % Sodium Chloride Flush 3 Ml Syringe) 3 ml IVFLUSH QSHIFT [facility] Last Admin: 01/14/25 20:48 Dose: 3 ml Documented By: SERENITY Vitamin D (Cholecalciferol (Vitamin D3) 25 Mcg Tablet) 50 mcg PO DAILY [facility] Last Admin: 01/15/25 09:17 Dose: 50 mcg Documented By: SANTOL Labs 01/15/25 06:53 01/15/25 06:53 Labs: Laboratory Results - last 24 hr 01/14/25 01/14/25 01/14/25 07:19 11:07 12:15 MCV MCH MCHC RDW Plt Count MPV Immature Gran % (Auto) Neut % (Auto) Lymph % (Auto) [place] % (Auto) Eos % (Auto) Baso % (Auto) Lymph # (Auto) [place] # (Auto) Eos # (Auto) Baso # (Auto) Abs Immat Gran (auto) Absolute Neuts (auto) Absolute Nucleated RBC Nucleated RBC % (auto) Anion Gap Estim Creat Clear Calc Estimated GFR POC Glucose 107 Random Glucose Calcium Prostate Specific Ag 0.85 Vitamin B12 Folate Pleural pH 7.38 Pleural WBC 1.603 Pleural RBC 0.005 Pleural Neutrophils 3 Pleural Lymphocytes 78 Pleural Monocytes 7 Pleural Eosinophils 1 Pleural Other Cells 11 Pleural Total Protein 3.9 Pleural Albumin 2.7 Pleural LDH 149 Pleural Glucose 107 Pleural Amylase 67 01/14/25 01/14/25 01/15/25 16:07 20:41 06:53 MCV 88.4 MCH 28.8 MCHC 32.6 RDW 15.0 Plt Count 301 MPV 9.5 Immature Gran % (Auto) 0.5 H Neut % (Auto) 85.1 H Lymph % (Auto) 6.9 L [place] % (Auto) 6.1 Eos % (Auto) 1.0 Baso % (Auto) 0.4 Lymph # (Auto) 0.8 L [place] # (Auto) 0.7 Eos # (Auto) 0.1 Baso # (Auto) 0.1 Abs Immat Gran (auto) 0.06 H Absolute Neuts (auto) 9.9 H Absolute Nucleated RBC 0.000 Nucleated RBC % (auto) 0.0 Anion Gap 13 Estim Creat Clear Calc 67.3 Estimated GFR > 60 POC Glucose 120 H 129 H Random Glucose 123 H Calcium 9.0 Prostate Specific Ag Vitamin B12 1441 H Folate 14.6 Pleural pH Pleural WBC Pleural RBC Pleural Neutrophils Pleural Lymphocytes Pleural Monocytes Pleural Eosinophils Pleural Other Cells Pleural Total Protein Pleural Albumin Pleural LDH Pleural Glucose Pleural Amylase 01/15/25 07:49 MCV MCH MCHC RDW Plt Count MPV Immature Gran % (Auto) Neut % (Auto) Lymph % (Auto) [place] % (Auto) Eos % (Auto) Baso % (Auto) Lymph # (Auto) [place] # (Auto) Eos # (Auto) Baso # (Auto) Abs Immat Gran (auto) Absolute Neuts (auto) Absolute Nucleated RBC Nucleated RBC % (auto) Anion Gap Estim Creat Clear Calc Estimated GFR POC Glucose 145 H Random Glucose Calcium Prostate Specific Ag Vitamin B12 Folate Pleural pH Pleural WBC Pleural RBC Pleural Neutrophils Pleural Lymphocytes Pleural Monocytes Pleural Eosinophils Pleural Other Cells Pleural Total Protein Pleural Albumin Pleural LDH Pleural Glucose Pleural Amylase Microbiology Microbiology Results: Microbiology 01/14/25 12:15 Gram Stain - Final Thoracentesis Fluid Anaerobic Culture - Preliminary No growth to date. Body Fluid Culture - Preliminary No growth after 1 day 01/13/25 15:03 Blood Culture - Preliminary Blood - Venous No growth after 24 hours. 07/28/25 15:03 Blood Culture - Preliminary Blood - Venous No growth after 24 hours. Assessment and Plan (1) Pleural effusion: Status: Acute Plan Patient is an 84-year-old male with a past medical history significant for CAD/CABG, HTN, HLD, bipolar, type 2 diabetes, history of breast cancer treated with surgery and radiation 10 years ago, who presented to the ED due to a witnessed mechanical fall #. 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 Underwent diagnostic and therapeutic thoracentesis by IR on 01/14 : 1L fluid drained. Pleural fluid is lymphocytic predominant. Cytology pending. Does have left-sided consolidation, initially admitted with IV antibiotics, transition to p.o. Ceftin and doxycycline (end date 01/22) . Oncology and pulmonology on board. #. Frequent falls: Orthostatics negative. PT recommending post acute placement. Spoke with the daughter at bedside who is agreeable. #. Mixed hyperlipidemia: On statin #. Insulin-dependent diabetes mellitus: Initiating Accu-Cheks with sliding scale insulin #. Lactic acidosis due to metformin use #. CAD status post CABG: On aspirin and statin #. Disorder: Continue home mood stabilizers DNR/DNI Lovenox Reason for continued hospitalization: Safe disposition Quality Stroke Does the patient have a stroke diagnosis?: No VTE Prior VTE?: No VTE Risk Level:: Medical - moderate - high VTE Device Contraindication: N/A - Device Ordered VTE Drug Contraindication: Treatment Not Indicated
[2025-01-15 10:27] LABS: B Type Natriuretic Peptide 381 pg/mL (<100)
--- NOTE | 2025-01-15 11:11 | MHC.CM.PN ---
This CM met with pt and his daughter present at bedside to discuss the discharge plan, [facility] second [facility]. Referrals sent via [facility], awaiting [facility] bed offer, and anticipating pt will be medically cleared for discharge tomorrow.
[2025-01-15 11:29] LABS: Glucose, Whole Blood 166 mg/dL (60-115)
[2025-01-15] MEDS: Furosemide 20 MG/2 ML VIAL IVPUSH (14:17)
--- NOTE | 2025-01-15 14:33 | PM.CNCAR ---
History of Present Illness History of Present Illness Date of Service: 01/15/25 Requesting physician: Yossi Santamaria Consult reason: other (Tachycardia) Chief complaint: dizziness Narrative: I was consulted to see Bill in cardiology consultation today for persistent tachycardia. He is 84-year-old male well known to me with prior history of CAD status post quadruple coronary artery bypass grafting many years ago with ischemia in the OM territory treated with dual antianginal therapy for long time, dual-chamber pacemaker for sick sinus syndrome with gradual frailty over the last many years with decreased exercise activity and low blood pressure which has led to withdrawal of life was medications. Patient is also subsequently developed psychiatric issues with bipolar disorder and has been admitted for the same. Has had multiple falls over the last many years. Came to the hospital with a fall and weakness. Noted to have large left-sided pleural effusion with consolidation with diffuse not use. There was concern for cancer. Patient underwent a thoracocentesis yesterday at 1 L of fluid was removed and sent for analysis. Since admission patient noted be tachycardic and noted to be in atrial flutter with rapid ventricular response with intermittent ventricular pacing. Patient has no symptoms of palpitations. On admission BNP was in the 100 range. Echocardiogram done yesterday showed LVEF of 35-40% which is significantly reduced compared to prior echocardiogram results. This morning patient is somewhat short of breath diuresing well but noted to be persistently tachycardic BNP in the 300 range. Review of Systems Constitutional: Constitutional: Reports fatigue, Denies fever(s), Reports frequent falls and Reports weakness Eyes: Eyes: Reports no additional eye complaints Cardiovascular: Cardiovascular: Denies chest pain, Denies leg edema, Denies lightheadedness, Denies Loss of Consciousness and Denies palpitations Respiratory: Respiratory: Reports no additional respiratory complaints Gastrointestinal: Gastrointestinal: Reports no additional gastrointestinal complaints Musculoskeletal: Musculoskeletal: Reports no additional musculoskeletal complaints Integumentary/Breasts: Skin/Breast: Reports system reviewed and no additional complaints, except as docu Neurologic: Reports system reviewed and no additional complaints, except as documented, Reports frequent falls and Reports weakness Psychiatric: Psychiatric: Reports no additional psychiatric complaints Endocrine: Endocrine: Reports fatigue and Denies palpitations [facility] Past Medical History Medical History History of left breast cancer CAD (coronary artery disease) Cardiac pacemaker in situ Sick sinus syndrome HTN (hypertension) Diabetes Hyperlipidemia Family History Family History Father CVD (cardiovascular disease) Mother CVD (cardiovascular disease) Brother CVD (cardiovascular disease) Sister Diabetes Son Diabetes Surgical History Surgical History Hx of cataract surgery Hx of mastectomy History of permanent cardiac pacemaker placement Hx of CABG Social History Social History Household Members: Spouse Housing: Apartment Do you presently have visiting nurse or other home services: Yes (twice a week) Alcohol intake: never Patient Tobacco Use Status: Former Tobacco user Tobacco use type: Cigarette Currently Displaying Signs/Symptoms of Drug Intoxication Withdrawal: No Have you been hit, kicked, punched, or otherwise hurt by someone within the past year? If so, by whom?: No Do you feel safe in your current relationship?: Yes Is there a partner from a previous relationship who is making you feel unsafe now?: No Are you made to feel afraid or neglected: No Advance Directives: Yes Advance Directives on File: Yes Advance Directives Date on File: 03/17/21 Do you have a plan to hurt others: No Plan Recently lost weight without trying: No service: No Sexual orientation: Straight/Heterosexual Meds Allergies Allergy/AdvReac Type Severity Reaction Status Date / Time Penicillins Allergy Unknown Unknown Verified 01/13/25 12:04 metoprolol AdvReac Intermediate bradycardia Verified 01/13/25 12:04 timolol AdvReac Intermediate low bp Verified 01/13/25 12:04 tamsulosin (From Flomax) AdvReac Mild Diarrhea Verified 01/13/25 12:04 beta blockers AdvReac Hypotension Uncoded 01/13/25 12:04 Active Medications: Current Medications Acetaminophen (Acetaminophen 325 Mg Tablet) 975 mg PO Q6H PRN PRN Reason: Pain, Mild 1-3,fever,headache Atorvastatin Calcium (Atorvastatin Calcium 80 Mg Tablet) 80 mg PO DAILY [facility] Last Admin: 01/15/25 09:16 Dose: 80 mg Bupropion HCl (Bupropion Hcl Xl 150 Mg Tab.Er.24h) 150 mg PO DAILY [facility] Last Admin: 01/15/25 09:17 Dose: 150 mg Calcium Carbonate (Calcium Carbonate 750 Mg Tab.Chew) 750 mg PO Q4H PRN PRN Reason: Heartburn Cefuroxime Axetil (Cefuroxime Axetil 500 Mg Tablet) 500 mg PO Q12H [facility] Stop: 01/22/25 10:29 Last Admin: 01/15/25 11:38 Dose: 500 mg Cyanocobalamin (Cyanocobalamin (Vitamin B-12) 1,000 Mcg Tablet) 1,000 mcg PO DAILY [facility] Last Admin: 01/15/25 09:18 Dose: 1,000 mcg Dextrose (Dextrose 50 % 25 Gm/50 Ml Syringe) 25 gm IVPUSH Q15M PRN; Protocol PRN Reason: per Hypoglycemia Standing Ord. Digoxin (Digoxin 0.5 Mg/2 Ml Ampul) 0.25 mg IVPUSH Q6H [facility]; Protocol Stop: 01/16/25 01:01 Last Admin: 01/15/25 14:23 Dose: 0.25 mg Doxycycline Monohydrate (Doxycycline Monohydrate 100 Mg Capsule) 100 mg PO Q12H [facility] Stop: 01/22/25 10:29 Last Admin: 01/15/25 11:38 Dose: 100 mg Enoxaparin Sodium (Enoxaparin Sodium 40 Mg/0.4 Ml Syringe) 40 mg SUBCUT Q24H [facility] Last Admin: 01/15/25 09:18 Dose: 40 mg Finasteride (Finasteride 5 Mg Tablet) 5 mg PO DAILY [facility] Last Admin: 01/15/25 09:18 Dose: 5 mg Folic Acid (Folic Acid 1 Mg Tablet) 1 mg PO DAILY [facility] Last Admin: 01/15/25 09:17 Dose: 1 mg Glucose (Glucose Gel 15 Gm Gel..Gram.) 15 gm PO Q15M PRN; Protocol PRN Reason: per Hypoglycemia Standing Ord. Insulin Human Lispro (Insulin Lispro 100 Unit/Ml 3 Ml Vial) 0 unit SUBCUT QIDACHS [facility]; Protocol Last Admin: 01/15/25 11:38 Dose: 2 unit Lamotrigine (Lamotrigine 25 Mg Tablet) 25 mg PO BID [facility] Last Admin: 01/15/25 09:17 Dose: 25 mg Latanoprost (Latanoprost 0.005 % Ophth [place] 2.5 Ml Drops) 1 drop EYE-BOTH BEDTIME [facility] Last Admin: 01/14/25 20:43 Dose: 1 drop Magnesium Hydroxide (Milk Of Magnesia 30 Ml Oral.Susp) 30 ml PO DAILY PRN PRN Reason: Constipation Melatonin (Melatonin 3 Mg Tablet) 6 mg PO BEDTIME PRN PRN Reason: Insomnia Last Admin: 01/14/25 20:43 Dose: 6 mg Metoprolol Tartrate (Metoprolol Tartrate 25 Mg Tablet) 25 mg PO QID [facility]; Protocol Last Admin: 01/15/25 14:23 Dose: 25 mg Olanzapine (Olanzapine 10 Mg Tablet) 10 mg PO BEDTIME [facility] Last Admin: 01/14/25 20:43 Dose: 10 mg Omeprazole (Omeprazole 20 Mg Capsule.Dr) 20 mg PO DAILY@0630 [facility] Last Admin: 01/15/25 05:27 Dose: 20 mg Ondansetron HCl (Ondansetron Hcl 4 Mg/2 Ml Vial) 4 mg IVPUSH Q8H PRN PRN Reason: Nausea and Vomiting Oxycodone HCl (Oxycodone Hcl Immed Release 5 Mg Tablet) 5 mg PO Q6H PRN PRN Reason: Pain, Severe (Pain Scale 7-10) Sodium Chloride (0.9 % Sodium Chloride Flush 3 Ml Syringe) 3 ml IVFLUSH QSHIFT [facility] Last Admin: 01/15/25 08:30 Dose: Not Given Vitamin D (Cholecalciferol (Vitamin D3) 25 Mcg Tablet) 50 mcg PO DAILY [facility] Last Admin: 01/15/25 09:17 Dose: 50 mcg Home Medications ?Medication ?Instructions ?Recorded ?Confirmed ?Last Taken ?Type bimatoprost 0.01 % eye drops 1 drp ophthalmic (eye) BEDTIME 05/28/20 01/13/25 01/12/25 History (Eulalio) bupropion HCl 150 mg 24 hr tablet, 150 mg PO DAILY 05/25/21 01/13/25 01/13/25 History extended release cyanocobalamin (vitamin B-12) 1,000 mcg PO DAILY 06/09/22 01/13/25 01/13/25 History 1,000 mcg tablet (Vitamin B-12) folic acid 1 mg tablet 1 mg PO DAILY 06/09/22 01/13/25 01/13/25 History metformin 500 mg tablet,extended 1,000 mg PO DAILY 07/05/22 01/13/25 01/13/25 History release 24 hr cholecalciferol (vitamin D3) 50 50 mcg PO DAILY 02/01/24 01/13/25 01/13/25 History mcg (2,000 unit) tablet pantoprazole 40 mg tablet,delayed 40 mg PO DAILY@0630 02/01/24 01/13/25 01/13/25 History release aspirin 81 mg tablet,delayed 162 mg PO DAILY 08/22/24 01/13/25 01/13/25 History release (Adult Aspirin Regimen) melatonin 5 mg tablet 5 mg PO BEDTIME PRN insomnia 01/13/25 01/13/25 Unknown History Physical Exam Vital Signs: Vital Signs: Last Vital Signs Temp 97.2 F 01/15/25 11:51 Pulse 115 H 01/15/25 14:23 Resp 17 01/15/25 11:51 BP 119/71 01/15/25 14:23 Pulse Ox 92 01/15/25 11:51 O2 Del Method Room Air 01/15/25 11:51 BMI result Body Mass Index 22.5 Const: General: cooperative, alert, awake and in distress mild and respiratory Nutritional Appearance: thin and other (Frail appearing) Orientation/consciousness: patient oriented x3 HEENT: Head: Yes normocephalic and Yes atraumatic Neck: Neck: Yes trachea midline, Yes supple and Yes no JVD Resp: Effort & Inspection: decreased respiratory effort Auscultation: no rales, no wheezes and diminished lung sounds Cardio: Jugular venous distension: no JVD Rhythm: regular rhythm Heart sounds: S1 normal heart sound present, S2 normal heart sound present, no click, no gallops, no murmurs and no rubs GI: Auscultation: normal bowel sounds Skin: General skin exam: ecchymosis Neuro: General: patient oriented x3 and no focal motor deficits Objective Labs and Meds 01/15/25 06:53 01/15/25 06:53 Lab results: Laboratory Results - last 24 hr 01/14/25 01/14/25 01/14/25 12:15 16:07 20:41 WBC RBC Hgb Hct MCV MCH MCHC RDW Plt Count MPV Immature Gran % (Auto) Neut % (Auto) Lymph % (Auto) Steele % (Auto) Eos % (Auto) Baso % (Auto) Lymph # (Auto) Steele # (Auto) Eos # (Auto) Baso # (Auto) Abs Immat Gran (auto) Absolute Neuts (auto) Absolute Nucleated RBC Nucleated RBC % (auto) Sodium Potassium Chloride Carbon Dioxide Anion Gap BUN Creatinine Estim Creat Clear Calc Estimated GFR POC Glucose 120 H 129 H Random Glucose Calcium B-Natriuretic Peptide Vitamin B12 Folate Pleural pH 7.38 Pleural Total Protein 3.9 Pleural Albumin 2.7 Pleural LDH 149 Pleural Glucose 107 Pleural Amylase 67 01/15/25 01/15/25 01/15/25 06:53 07:49 09:56 WBC 11.7 H RBC 4.30 L Hgb 12.4 L Hct 38.0 L MCV 88.4 MCH 28.8 MCHC 32.6 RDW 15.0 Plt Count 301 MPV 9.5 Immature Gran % (Auto) 0.5 H Neut % (Auto) 85.1 H Lymph % (Auto) 6.9 L Steele % (Auto) 6.1 Eos % (Auto) 1.0 Baso % (Auto) 0.4 Lymph # (Auto) 0.8 L Steele # (Auto) 0.7 Eos # (Auto) 0.1 Baso # (Auto) 0.1 Abs Immat Gran (auto) 0.06 H Absolute Neuts (auto) 9.9 H Absolute Nucleated RBC 0.000 Nucleated RBC % (auto) 0.0 Sodium 141 Potassium 4.0 Chloride 110 H Carbon Dioxide 22 Anion Gap 13 BUN 15 Creatinine 0.85 Estim Creat Clear Calc 67.3 Estimated GFR > 60 POC Glucose 145 H Random Glucose 123 H Calcium 9.0 B-Natriuretic Peptide 381 H Vitamin B12 1441 H Folate 14.6 Pleural pH Pleural Total Protein Pleural Albumin Pleural LDH Pleural Glucose Pleural Amylase 01/15/25 11:15 WBC RBC Hgb Hct MCV MCH MCHC RDW Plt Count MPV Immature Gran % (Auto) Neut % (Auto) Lymph % (Auto) Steele % (Auto) Eos % (Auto) Baso % (Auto) Lymph # (Auto) Steele # (Auto) Eos # (Auto) Baso # (Auto) Abs Immat Gran (auto) Absolute Neuts (auto) Absolute Nucleated RBC Nucleated RBC % (auto) Sodium Potassium Chloride Carbon Dioxide Anion Gap BUN Creatinine Estim Creat Clear Calc Estimated GFR POC Glucose 166 H Random Glucose Calcium B-Natriuretic Peptide Vitamin B12 Folate Pleural pH Pleural Total Protein Pleural Albumin Pleural LDH Pleural Glucose Pleural Amylase Conclusions: - 1. Moderately reduced LV ejection fraction of 35-40% 2. Cardiac valvular Dopplers within normal limits 3. Normal measured RV systolic pressure 4. No gross pericardial effusion Imaging Radiologist's impression: Impressions Thoracentesis Ultrasound 01/14/25 11:45 IMPRESSION: Successful ultrasound-guided diagnostic left thoracentesis performed. Electronically signed by: Raphael Hilliard MD 01/14/2025 02:54 PM EDT RP Chest X-Ray 01/15/25 09:45 IMPRESSION: 1. Mild reaccumulation of left effusion. 2. No perceptible pneumothorax. 3. Mild residual opacity left base, likely residual consolidation. 4. Numerous chronic and additional findings, without change. Electronically signed by: Davis Reese MD 01/15/2025 10:09 AM EDT Assessment and Plan (1) Atrial flutter with rapid ventricular response: Status: Acute Atrial flutter with rapid ventricular response, difficult control rate at this point time. Will use digoxin loading 0.25 mg IV push q.6 hours times 3 doses. Also start metoprolol 25 mg q.6. Follow up blood pressure closely. Will see if this will lead to improvement in overall rate control in his cardiac functioning. Will also consider starting oral anticoagulation therapy with Eliquis if there are no other obvious contraindications. (2) Cardiomyopathy: Status: Acute Cardiomyopathy process which appears to be new. Could be tachycardia mediated related to his rapid atrial flutter which is uncontrolled and/or stress-induced cardiomyopathy. Less likely ischemic cardiomyopathy. Continue rate control as above with digoxin and metoprolol. Clinically BNP is increase with may be mild signs of congestive heart failure. Low-dose diuresis. Strict intake and output chart needs to be pursued. Follow clinically. (3) Cardiac pacemaker in situ: Status: Acute Cardiac pacemaker in-situ, working well. There was no issue with the pacemaker function at this point time. (4) CAD (coronary artery disease): Status: Acute CAD without any obvious signs of acute coronary syndrome. This is stable. Continue statin therapy. Can stop aspirin therapy if Eliquis is started. Will continue to follow with you Procedures Date of Service Date of Service: 01/15/25
--- NOTE | 2025-01-15 15:34 | P.CDIM_ITS ---
PROVIDER RESPONSE TEXT: To clarify, the appropriate diagnosis supported by the clinical indicators: Acute QUERY TEXT: PHYSICIAN'S DOCUMENTATION REQUEST Date of Query: 01/15/2025 01:01 PM EDT Patient Name: Kurt Henderson Admit Date: 01/13/2025 Dear Yossi Santamaria MD, A review of the medical record indicates additional documentation may be needed. Please review below and update the documentation accordingly. Clinical Indicators: lactic acidosis due to Metformin use LA 2.9 Clarify which of the following accurately represents the acuity of the lactic acidosis. Possible options might include: Acute Acute on chronic Compensated Chronic stable condition Remission Other (explain) Clinically unable to determine (explain) Thank you, Pennie Marvin RN Use of terms such as suspected, likely, concern for, or probable (associated with a specific diagnosis that is being evaluated, monitored, or treated as if it exists) are acceptable and can be coded in the inpatient setting, when documented at the time of discharge. Please use your independent medical judgment in providing your response. THIS QUERY IS PART OF THE PERMANENT MEDICAL RECORD
[2025-01-15 15:57] LABS: Glucose, Whole Blood 153 mg/dL (60-115)
[2025-01-15] MEDS: 0.9 % Sodium Chloride Flush 3 ML SYRINGE IVFLUSH ×2 (17:53→20:12)
[2025-01-15 20:33] LABS: Glucose, Whole Blood 108 mg/dL (60-115)
[2025-01-15] MEDS: Latanoprost 0.005 % Ophth Sol 2.5 ML DROPS 1 DROP EYE-BOTH (23:18)
[2025-01-16] VITALS (14 sets, daily range): BP systolic 85–146; BP diastolic 54–90; PULSE 51–115; RESP 16–20; TEMP 36.1–36.9; O2SAT 90–94
[2025-01-16 06:54] LABS: MANUAL DIFF FLAG NO
[2025-01-16 07:13] LABS: Hematocrit 38.9 % (42.0-52.0); Hemoglobin 12.5 g/dl (14.0-18.0); Imm Gran Abs Auto 0.07 X10*3/uL (0.00-0.03); Imm Gran Pct Auto 0.5 % (0.0-0.4); Lymphocytes Absolute Auto 1.0 X10*3/uL (1.2-4.9); Mean Corpuscular HGB Conc 32.1 g/dl (31.0-36.0); Mean Corpuscular Hemoglobin 28.3 pg (27.0-33.0); Mean Corpuscular Volume 88.2 fL (80.0-98.0); NRBC Abs Auto 0.000 X10*3/uL (0.0-0.012); NRBC Pct Auto 0.0 /100WBC (0.0-0.2); Platelet Count 363 X10*3/uL (160-400); Red Blood Count 4.41 X10*6/uL (4.60-5.80); White Blood Count 13.1 X10*3/uL (4.8-10.8)
[2025-01-16 07:16] LABS: Anion Gap 15 (12-20); Blood Urea Nitrogen 15 mg/dL (9-16); Calcium 9.2 mg/dL (8.4-10.2); Carbon Dioxide 24 mmol/L (22-29); Chloride 107 mmol/L (96-108); Creatinine Clr Calc Pharmacy 57.2; Estimated Glomerular Filt Rate > 60; Potassium 4.5 mmol/L (3.3-5.1); Sodium 141 mmol/L (135-145)
[2025-01-16 07:22] LABS: Glucose, Whole Blood 123 mg/dL (60-115)
--- NOTE | 2025-01-16 09:05 | P.CDIM_ITS ---
PROVIDER RESPONSE TEXT: To clarify, the appropriate diagnosis supported by the clinical indicators: Sepsis is/was present and is a clinical diagnosis QUERY TEXT: PHYSICIAN'S DOCUMENTATION REQUEST Date of Query: 01/15/2025 01:06 PM EDT Patient Name: Kurt Henderson Admit Date: 01/13/2025 Dear Yossi Santamaria MD, A review of the medical record indicates additional documentation may be needed. Please review below and update the documentation accordingly. Documentation on the H&P dated 01/13/25 included the diagnosis of sepsis. The patient's infectious clinical indicators include: WBC 13.2 LA 2.9 temperature 98.0 pulse 104 Recognized standard criteria for this condition and other infectious definitions includes: Sepsis Systemic manifestations of infection, with 2 or more SIRS criteria which include: Fever > 100.4?F or hypothermia < 96.8?F Leukocytosis - WBC > 12,000 or leukopenia, WBC < 4,000, or > 10% bands Tachycardia- > 90 beats/minute Tachypnea- RR > 20 breaths/minute or PaCO2 < 32mmHg Source: [employer] Manual 2013 Documentation should include the known or suspected organism, and the underlying infection, such as UTI or pneumonia Based on the above information and the recognized standard for sepsis, could you please clarify if this diagnoses is still accurate and reflective of the patient's condition to ensure quality of the medical record. Sepsis is/was present and is a clinical diagnosis After study, Sepsis has been ruled out Other (explain) Clinically unable to determine (explain) Thank you, Pennie Marvin RN Use of terms such as suspected, likely, concern for, or probable (associated with a specific diagnosis that is being evaluated, monitored, or treated as if it exists) are acceptable and can be coded in the inpatient setting, when documented at the time of discharge. Please use your independent medical judgment in providing your response. THIS QUERY IS PART OF THE PERMANENT MEDICAL RECORD
[2025-01-16] MEDS: 0.9 % Sodium Chloride Flush 3 ML SYRINGE IVFLUSH ×3 (09:29→21:03)
[2025-01-16] MEDS: buPROPion HCl XL 150 MG TAB.ER.24H PO (09:30)
--- NOTE | 2025-01-16 10:15 | P.PNIM_ITS ---
Subjective Subjective Date of Service: 01/16/25 Interval History: Patient without any acute events overnight. Updated daughter and at bedside. Review of Systems Review of Systems: Yes Unobtainable due to mental status Constitutional Constitutional: Denies body ache(s), Denies chills, Denies fatigue, Reports frequent falls and Denies headache(s) Eyes Eyes: Denies change in vision ENT Ears, Nose, Mouth, and Throat: Denies headache(s) Cardiovascular Cardiovascular: Denies chest pain, Denies rapid heart rate, Denies leg edema, Denies lightheadedness and Denies dyspnea Respiratory Respiratory: Denies chest congestion, Denies cough, Denies dyspnea and Denies wheezing Gastrointestinal Gastrointestinal: Denies abdominal pain, Denies nausea and Denies vomiting Genitourinary Genitourinary: Denies dysuria and Denies urinary urgency Musculoskeletal Musculoskeletal: Denies back pain Integumentary/Breasts Skin/Breast: Denies rash Neurologic Neurologic: Reports frequent falls and Denies headache(s) Endocrine Endocrine: Denies fatigue Hematologic/Lymphatic Hematologic/Lymphatic: Denies easy bleeding and Denies easy bruising Allergic/Immunologic Allergic/Immunologic: Denies wheezing Physical Exam 2 Vital Signs: Vital Signs: Last Vital Signs Temp 98.4 F 01/16/25 07:56 Pulse 97 01/16/25 09:30 Resp 20 01/16/25 07:56 BP 114/79 01/16/25 09:30 Pulse Ox 90 L 01/16/25 07:56 O2 Del Method Room Air 01/16/25 07:56 BMI result Body Mass Index 22.5 Middle-aged male lying in bed in no distress Neck supple, no JVD Regular rate and rhythm, S1-S2 heard Diminished left-sided lung sounds Abdomen soft nontender, no guarding, no rigidity Patient is awake, alert and oriented x2; no focal motor deficit Psych: Normal mood No pedal edema Objective Data Active Medications Acetaminophen (Acetaminophen 325 Mg Tablet) 975 mg PO Q6H PRN PRN Reason: Pain, Mild 1-3,fever,headache Atorvastatin Calcium (Atorvastatin Calcium 80 Mg Tablet) 80 mg PO DAILY [facility] Last Admin: 01/16/25 09:30 Dose: 80 mg Documented By: GUEVARA Bupropion HCl (Bupropion Hcl Xl 150 Mg Tab.Er.24h) 150 mg PO DAILY [facility] Last Admin: 01/16/25 09:30 Dose: 150 mg Documented By: GUEVARA Calcium Carbonate (Calcium Carbonate 750 Mg Tab.Chew) 750 mg PO Q4H PRN PRN Reason: Heartburn Cefuroxime Axetil (Cefuroxime Axetil 500 Mg Tablet) 500 mg PO Q12H [facility] Stop: 01/22/25 10:29 Last Admin: 01/16/25 09:31 Dose: 500 mg Documented By: GUEVARA Cyanocobalamin (Cyanocobalamin (Vitamin B-12) 1,000 Mcg Tablet) 1,000 mcg PO DAILY [facility] Last Admin: 01/16/25 09:30 Dose: 1,000 mcg Documented By: GUEVARA Dextrose (Dextrose 50 % 25 Gm/50 Ml Syringe) 25 gm IVPUSH Q15M PRN; Protocol PRN Reason: per Hypoglycemia Standing Ord. Digoxin (Digoxin 0.25 Mg Tablet) 0.25 mg PO DAILY [facility]; Protocol Doxycycline Monohydrate (Doxycycline Monohydrate 100 Mg Capsule) 100 mg PO Q12H [facility] Stop: 01/22/25 10:29 Last Admin: 01/16/25 09:30 Dose: 100 mg Documented By: GUEVARA Enoxaparin Sodium (Enoxaparin Sodium 40 Mg/0.4 Ml Syringe) 40 mg SUBCUT Q24H [facility] Last Admin: 01/16/25 09:29 Dose: 40 mg Documented By: GUEVARA Finasteride (Finasteride 5 Mg Tablet) 5 mg PO DAILY [facility] Last Admin: 01/16/25 09:29 Dose: 5 mg Documented By: GUEVARA Folic Acid (Folic Acid 1 Mg Tablet) 1 mg PO DAILY [facility] Last Admin: 01/16/25 09:31 Dose: 1 mg Documented By: GUEVARA Furosemide (Furosemide 20 Mg Tablet) 20 mg PO DAILY [facility]; Protocol Glucose (Glucose Gel 15 Gm Gel..Gram.) 15 gm PO Q15M PRN; Protocol PRN Reason: per Hypoglycemia Standing Ord. Insulin Human Lispro (Insulin Lispro 100 Unit/Ml 3 Ml Vial) 0 unit SUBCUT QIDACHS [facility]; Protocol Last Admin: 01/16/25 09:00 Dose: Not Given Documented By: GUEVARA Non-Admin Reason: No Insulin Coverage Lamotrigine (Lamotrigine 25 Mg Tablet) 25 mg PO BID [facility] Last Admin: 01/16/25 09:30 Dose: 25 mg Documented By: GUEVARA Latanoprost (Latanoprost 0.005 % Ophth [place] 2.5 Ml Drops) 1 drop EYE-BOTH BEDTIME [facility] Last Admin: 01/15/25 23:18 Dose: 1 drop Documented By: ARSH Magnesium Hydroxide (Milk Of Magnesia 30 Ml Oral.Susp) 30 ml PO DAILY PRN PRN Reason: Constipation Melatonin (Melatonin 3 Mg Tablet) 6 mg PO BEDTIME PRN PRN Reason: Insomnia Last Admin: 01/14/25 20:43 Dose: 6 mg Documented By: SERENITY Metoprolol Tartrate (Metoprolol Tartrate 50 Mg Tablet) 50 mg PO BID [facility]; Protocol Olanzapine (Olanzapine 10 Mg Tablet) 10 mg PO BEDTIME [facility] Last Admin: 01/15/25 20:14 Dose: 10 mg Documented By: ARSH Omeprazole (Omeprazole 20 Mg Capsule.Dr) 20 mg PO DAILY@0630 [facility] Last Admin: 01/16/25 05:41 Dose: 20 mg Documented By: ARSH Ondansetron HCl (Ondansetron Hcl 4 Mg/2 Ml Vial) 4 mg IVPUSH Q8H PRN PRN Reason: Nausea and Vomiting Oxycodone HCl (Oxycodone Hcl Immed Release 5 Mg Tablet) 5 mg PO Q6H PRN PRN Reason: Pain, Severe (Pain Scale 7-10) Sodium Chloride (0.9 % Sodium Chloride Flush 3 Ml Syringe) 3 ml IVFLUSH QSHIFT [facility] Last Admin: 01/16/25 09:29 Dose: 3 ml Documented By: GUEVARA Vitamin D (Cholecalciferol (Vitamin D3) 25 Mcg Tablet) 50 mcg PO DAILY [facility] Last Admin: 01/16/25 09:31 Dose: 50 mcg Documented By: GUEVARA Labs 01/16/25 06:20 01/16/25 06:20 Labs: Laboratory Results - last 24 hr 01/15/25 01/15/25 01/15/25 09:56 11:15 15:41 MCV MCH MCHC RDW Plt Count MPV Immature Gran % (Auto) Neut % (Auto) Lymph % (Auto) [place] % (Auto) Eos % (Auto) Baso % (Auto) Lymph # (Auto) [place] # (Auto) Eos # (Auto) Baso # (Auto) Abs Immat Gran (auto) Absolute Neuts (auto) Absolute Nucleated RBC Nucleated RBC % (auto) Anion Gap Estim Creat Clear Calc Estimated GFR POC Glucose 166 H 153 H Random Glucose Calcium B-Natriuretic Peptide 381 H 01/15/25 01/16/25 01/16/25 20:13 06:20 07:18 MCV 88.2 MCH 28.3 MCHC 32.1 RDW 15.0 Plt Count 363 MPV 9.6 Immature Gran % (Auto) 0.5 H Neut % (Auto) 82.9 H Lymph % (Auto) 7.5 L [place] % (Auto) 7.9 Eos % (Auto) 0.7 Baso % (Auto) 0.5 Lymph # (Auto) 1.0 L [place] # (Auto) 1.0 Eos # (Auto) 0.1 Baso # (Auto) 0.1 Abs Immat Gran (auto) 0.07 H Absolute Neuts (auto) 10.9 H Absolute Nucleated RBC 0.000 Nucleated RBC % (auto) 0.0 Anion Gap 15 Estim Creat Clear Calc 57.2 Estimated GFR > 60 POC Glucose 108 123 H Random Glucose 113 Calcium 9.2 B-Natriuretic Peptide Microbiology Microbiology Results: Microbiology 01/14/25 12:15 Gram Stain - Final Thoracentesis Fluid Anaerobic Culture - Preliminary No growth to date. Body Fluid Culture - Final No growth after 2 days 01/13/25 15:03 Blood Culture - Preliminary Blood - Venous No growth after 48 hours. 01/13/25 15:03 Blood Culture - Preliminary Blood - Venous No growth after 48 hours. Assessment and Plan (1) HTN (hypertension): Status: Acute (2) Atrial flutter with rapid ventricular response: Status: Acute (3) Congestive heart failure: Status: Acute Plan Patient is an 84-year-old male with a past medical history significant for CAD/CABG, HTN, HLD, bipolar, type 2 diabetes, history of breast cancer treated with surgery and radiation 10 years ago, who presented to the ED due to a witnessed mechanical fall #. Acute mild exacerbation of congestive heart failure with reduced ejection fraction: Initiated IV diuresis. Transition to p.o. Lasix before discharge. Initiated beta-priscila #. Atrial flutter with RVR: Rate controlled after IV digoxin load. Initiated p.o. digoxin daily. Will need digoxin level in a week. Also on beta-priscila as above #. 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 Underwent diagnostic and therapeutic thoracentesis by IR on 01/14 : 1L fluid drained. Pleural fluid is lymphocytic predominant. Cytology pending. #. Sepsis due to left-sided pneumonia: Initially admitted with IV antibiotics, transitioned to p.o. Ceftin and doxycycline (end date 01/22) #. Frequent falls: Orthostatics negative. B12 okay. PT recommending post acute placement. Spoke with the daughter at bedside who is agreeable. #. Mixed hyperlipidemia: On statin #. Insulin-dependent diabetes mellitus: Initiating Accu-Cheks with sliding scale insulin #. Lactic acidosis due to metformin use #. CAD status post CABG: On aspirin and statin #. Disorder: Continue home mood stabilizers DNR/DNI Lovenox Reason for continued hospitalization: IV diuresis, Safe disposition Quality Stroke Does the patient have a stroke diagnosis?: No VTE Prior VTE?: No VTE Risk Level:: Medical - moderate - high VTE Device Contraindication: N/A - Device Ordered VTE Drug Contraindication: Treatment Not Indicated
--- NOTE | 2025-01-16 10:38 | PM.PNCARD ---
Subjective Subjective Date of Service: 01/16/25 Principal diagnosis: Cardiomyopathy, atrial flutter, CHF Interval history: Denies any cardiac complaints. Rate is better controlled. Blood pressure is stable. Has diuresed about 1200 cc overnight. Most frustrated with being in the hospital. Has poor balance. Has issues with urinary catheter. Review of Systems Constitutional: Reports frequent falls and Reports weakness Eyes: Reports no additional eye complaints Cardiovascular: Denies chest pain, Denies lightheadedness, Denies Loss of Consciousness, Denies palpitations and Reports dyspnea Respiratory: Reports no additional respiratory complaints and Reports dyspnea Reports frequent falls and Reports weakness Endocrine: Denies palpitations Physical Exam Vital Signs: Last Vital Signs Temp 98.4 F 01/16/25 07:56 Pulse 97 01/16/25 09:30 Resp 20 01/16/25 07:56 BP 114/79 01/16/25 09:30 Pulse Ox 90 L 01/16/25 07:56 O2 Del Method Room Air 01/16/25 07:56 BMI result Body Mass Index 22.5 Const General: cooperative, comfortable and awake Nutritional Appearance: average body habitus Neck Neck: Yes trachea midline, Yes supple and Yes no JVD Resp Effort & Inspection: normal respiratory effort Auscultation: no wheezes and diminished lung sounds Cardio Jugular venous distension: no JVD Rhythm: regular rhythm and abnormal rhythm Heart sounds: S1 normal heart sound present, S2 normal heart sound present, no click, no gallops and no murmurs GI Auscultation: normal bowel sounds Neuro General: no focal motor deficits Extrem General: Yes no clubbing, cyanosis or edema Objective Labs and Meds 01/16/25 06:20 01/16/25 06:20 Lab results: Laboratory Results - last 24 hr 01/15/25 01/15/25 01/15/25 11:15 15:41 20:13 WBC RBC Hgb Hct MCV MCH MCHC RDW Plt Count MPV Immature Gran % (Auto) Neut % (Auto) Lymph % (Auto) [place] % (Auto) Eos % (Auto) Baso % (Auto) Lymph # (Auto) [place] # (Auto) Eos # (Auto) Baso # (Auto) Abs Immat Gran (auto) Absolute Neuts (auto) Absolute Nucleated RBC Nucleated RBC % (auto) Sodium Potassium Chloride Carbon Dioxide Anion Gap BUN Creatinine Estim Creat Clear Calc Estimated GFR POC Glucose 166 H 153 H 108 Random Glucose Calcium 01/16/25 01/16/25 06:20 07:18 WBC 13.1 H RBC 4.41 L Hgb 12.5 L Hct 38.9 L MCV 88.2 MCH 28.3 MCHC 32.1 RDW 15.0 Plt Count 363 MPV 9.6 Immature Gran % (Auto) 0.5 H Neut % (Auto) 82.9 H Lymph % (Auto) 7.5 L [place] % (Auto) 7.9 Eos % (Auto) 0.7 Baso % (Auto) 0.5 Lymph # (Auto) 1.0 L [place] # (Auto) 1.0 Eos # (Auto) 0.1 Baso # (Auto) 0.1 Abs Immat Gran (auto) 0.07 H Absolute Neuts (auto) 10.9 H Absolute Nucleated RBC 0.000 Nucleated RBC % (auto) 0.0 Sodium 141 Potassium 4.5 Chloride 107 Carbon Dioxide 24 Anion Gap 15 BUN 15 Creatinine 1.00 Estim Creat Clear Calc 57.2 Estimated GFR > 60 POC Glucose 123 H Random Glucose 113 Calcium 9.2 Progress Note: A&P Assessment and plan (1) Cardiomyopathy: Status: Acute Assessment and Plan: 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 Continue gentle diuresis. Strict intake and output chart needs to be pursued. Continue rate control as above. Metoprolol for neurohormonal modulation. Out of bed to chair and ambulate as tolerated. (2) Atrial flutter with rapid ventricular response: Status: Acute Assessment and Plan: Atrial flutter with rapid ventricular response with better rate control. Start digoxin 0.25 mg daily. Switch metoprolol to 50 mg b.i.d.. Adequate rate control is necessary. Oral anticoagulation and fall prevention rehab. Will follow with you Time Spent With Patient Time: Total time managing care of this patient today ____ minutes. Progress Note: Quality Stroke Does the patient have a stroke diagnosis?: No Procedures Date of Service Date of Service: 01/16/25
[2025-01-16] MEDS: Furosemide 20 MG/2 ML VIAL IVPUSH (11:13)
[2025-01-16 11:16] LABS: Glucose, Whole Blood 187 mg/dL (60-115)
[2025-01-16 16:17] LABS: Glucose, Whole Blood 139 mg/dL (60-115)
[2025-01-16 20:18] LABS: Glucose, Whole Blood 141 mg/dL (60-115)
[2025-01-16] MEDS: Latanoprost 0.005 % Ophth Sol 2.5 ML DROPS 1 DROP EYE-BOTH (21:52)
[2025-01-17] VITALS (9 sets, daily range): BP systolic 101–132; BP diastolic 56–80; PULSE 71–111; RESP 16–20; TEMP 35.9–36.8; O2SAT 92–94
[2025-01-17 07:03] LABS: Glucose, Whole Blood 144 mg/dL (60-115)
[2025-01-17] MEDS: 0.9 % Sodium Chloride Flush 3 ML SYRINGE IVFLUSH ×3 (08:52→20:28)
[2025-01-17] MEDS: buPROPion HCl XL 150 MG TAB.ER.24H PO (08:59)
--- NOTE | 2025-01-17 09:00 | PC.NURSE ---
Patient unable to participate for orthostatic vs, too sleepy/drowsy
[2025-01-17 09:04] LABS: CA 27.29 23 U/mL (<38)
--- NOTE | 2025-01-17 10:20 | PM.PNCARD ---
Subjective Subjective Date of Service: 01/17/25 Principal diagnosis: Cardiomyopathy, atrial flutter, CHF Interval history: Patient denies any cardiac complaints. Heart rate overnight has been controlled. Overnight had confusion as per the daughters at bedside. This has been issue with him. He has been given Ativan overnight and feels sleepy and tired this morning. Heart rate was slightly elevated this morning but later as again stabilized. Review of Systems Cardiovascular: Reports no additional cardiovascular complaints Gastrointestinal: Reports no additional gastrointestinal complaints Reports system reviewed and no additional complaints, except as documented Physical Exam Vital Signs: Last Vital Signs Temp 98.3 F 01/17/25 07:32 Pulse 111 H 01/17/25 08:58 Resp 20 01/17/25 07:32 BP 108/56 L 01/17/25 08:54 Pulse Ox 94 01/17/25 07:32 O2 Del Method Room Air 01/17/25 07:32 BMI result Body Mass Index 22.5 Objective Labs and Meds 01/16/25 06:20 01/16/25 06:20 Lab results: Laboratory Results - last 24 hr 01/14/25 01/16/25 01/16/25 07:19 11:12 16:12 POC Glucose 187 H 139 H CA - 23 01/16/25 01/17/25 20:10 06:59 POC Glucose 141 H 144 H CA Progress Note: A&P Assessment and plan (1) Cardiomyopathy: Status: Acute Assessment and Plan: 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 At this point time continue rate control approach. Clinically does not appear to be in significant heart failure. Can switch to oral diuretics. Continue metoprolol for neurohormonal modulation. Hold off on other medications given his lower blood pressure. (2) Atrial flutter with rapid ventricular response: Status: Acute Assessment and Plan: Atrial flutter with rapid ventricular response with I think overall adequate rate control. Continue metoprolol as well as digoxin. Digoxin assay in 1 week. Consider Eliquis therapy. Will sign of the case and follow as outpatient Time Spent With Patient Time: Total time managing care of this patient today ____ minutes. Progress Note: Quality Stroke Does the patient have a stroke diagnosis?: No Procedures Date of Service Date of Service: 01/17/25
[2025-01-17 11:04] LABS: Glucose, Whole Blood 156 mg/dL (60-115)
--- NOTE | 2025-01-17 12:10 | MHC.CLN ---
CONSULT PT WITH POOR PO INTAKE RECOMMEND ADDING ENSURE MAX BID TO INCREASE PO SUPP TO PROVIDE 300KCALS, 60G PROTEIN CONTINUE TO MONITOR PO INTAKE
--- NOTE | 2025-01-17 15:05 | MHC.CM.PN ---
EMR reviewed and per MD rounds, pt is not medically cleared for discharge due to management of CHF exacerbation, left pleural effusion, pneumonia, and stacy-psych consult pending.
--- NOTE | 2025-01-17 15:18 | P.PNIM_ITS ---
Subjective Subjective Date of Service: 01/17/25 Interval History: Patient with a episodes of hyperactive delirium last night. Updated 2 daughters at bedside Constitutional Constitutional: Denies body ache(s), Denies chills, Denies fatigue, Reports frequent falls and Denies headache(s) Eyes Eyes: Denies change in vision ENT Ears, Nose, Mouth, and Throat: Denies headache(s) Cardiovascular Cardiovascular: Denies chest pain, Denies rapid heart rate, Denies leg edema, Denies lightheadedness and Denies dyspnea Respiratory Respiratory: Denies chest congestion, Denies cough, Denies dyspnea and Denies wheezing Gastrointestinal Gastrointestinal: Denies abdominal pain, Denies nausea and Denies vomiting Genitourinary Genitourinary: Denies dysuria and Denies urinary urgency Musculoskeletal Musculoskeletal: Denies back pain Integumentary/Breasts Skin/Breast: Denies rash Neurologic Neurologic: Denies confusion, Reports frequent falls and Denies headache(s) Psychiatric Psychiatric: Denies confusion Endocrine Endocrine: Denies fatigue Hematologic/Lymphatic Hematologic/Lymphatic: Denies easy bleeding and Denies easy bruising Allergic/Immunologic Allergic/Immunologic: Denies wheezing Physical Exam 2 Vital Signs: Vital Signs: Last Vital Signs Temp 97.7 F 01/17/25 11:10 Pulse 71 01/17/25 11:10 Resp 20 01/17/25 11:10 BP 114/76 01/17/25 11:10 Pulse Ox 94 01/17/25 11:10 O2 Del Method Room Air 01/17/25 11:10 BMI result Body Mass Index 22.5 Const: Other: Middle-aged male lying in bed in no distress Neck supple, no JVD Regular rate and rhythm, S1-S2 heard Diminished left-sided lung sounds Abdomen soft nontender, no guarding, no rigidity Patient is awake, alert and oriented x2; no focal motor deficit Psych: Normal mood No pedal edema General: No confusion Orientation/consciousness: No confusion Neuro: General: No confusion Objective Data Active Medications Acetaminophen (Acetaminophen 325 Mg Tablet) 975 mg PO Q6H PRN PRN Reason: Pain, Mild 1-3,fever,headache Last Admin: 01/16/25 12:46 Dose: 975 mg Documented By: GUEVARA Apixaban (Apixaban 5 Mg Tablet) 5 mg PO BID [facility] Atorvastatin Calcium (Atorvastatin Calcium 80 Mg Tablet) 80 mg PO DAILY [facility] Last Admin: 01/17/25 09:00 Dose: 80 mg Documented By: GUEVARA Bupropion HCl (Bupropion Hcl Xl 150 Mg Tab.Er.24h) 150 mg PO DAILY [facility] Last Admin: 01/17/25 08:59 Dose: 150 mg Documented By: GUEVARA Calcium Carbonate (Calcium Carbonate 750 Mg Tab.Chew) 750 mg PO Q4H PRN PRN Reason: Heartburn Cefuroxime Axetil (Cefuroxime Axetil 500 Mg Tablet) 500 mg PO Q12H [facility] Stop: 01/22/25 10:29 Last Admin: 01/17/25 09:02 Dose: 500 mg Documented By: GUEVARA Cyanocobalamin (Cyanocobalamin (Vitamin B-12) 1,000 Mcg Tablet) 1,000 mcg PO DAILY [facility] Last Admin: 01/17/25 09:01 Dose: 1,000 mcg Documented By: GUEVARA Dextrose (Dextrose 50 % 25 Gm/50 Ml Syringe) 25 gm IVPUSH Q15M PRN; Protocol PRN Reason: per Hypoglycemia Standing Ord. Digoxin (Digoxin 0.25 Mg Tablet) 0.25 mg PO DAILY [facility]; Protocol Last Admin: 01/17/25 09:01 Dose: 0.25 mg Documented By: GUEVARA Doxycycline Monohydrate (Doxycycline Monohydrate 100 Mg Capsule) 100 mg PO Q12H [facility] Stop: 01/22/25 10:29 Last Admin: 01/17/25 09:00 Dose: 100 mg Documented By: GUEVARA Finasteride (Finasteride 5 Mg Tablet) 5 mg PO DAILY [facility] Last Admin: 01/17/25 08:53 Dose: 5 mg Documented By: GUEVARA Folic Acid (Folic Acid 1 Mg Tablet) 1 mg PO DAILY [facility] Last Admin: 01/17/25 09:00 Dose: 1 mg Documented By: GUEVARA Furosemide (Furosemide 20 Mg Tablet) 20 mg PO DAILY [facility]; Protocol Last Admin: 01/17/25 08:54 Dose: 20 mg Documented By: GUEVARA Glucose (Glucose Gel 15 Gm Gel..Gram.) 15 gm PO Q15M PRN; Protocol PRN Reason: per Hypoglycemia Standing Ord. Insulin Human Lispro (Insulin Lispro 100 Unit/Ml 3 Ml Vial) 0 unit SUBCUT QIDACHS [facility]; Protocol Last Admin: 01/17/25 12:06 Dose: 2 unit Documented By: GUEVARA Lamotrigine (Lamotrigine 25 Mg Tablet) 25 mg PO BID [facility] Last Admin: 01/17/25 08:54 Dose: 25 mg Documented By: GUEVARA Latanoprost (Latanoprost 0.005 % Ophth [place] 2.5 Ml Drops) 1 drop EYE-BOTH BEDTIME [facility] Last Admin: 01/16/25 21:52 Dose: 1 drop Documented By: ARSH Magnesium Hydroxide (Milk Of Magnesia 30 Ml Oral.Susp) 30 ml PO DAILY PRN PRN Reason: Constipation Melatonin (Melatonin 3 Mg Tablet) 6 mg PO BEDTIME PRN PRN Reason: Insomnia Last Admin: 01/14/25 20:43 Dose: 6 mg Documented By: SERENITY Metoprolol Tartrate (Metoprolol Tartrate 50 Mg Tablet) 50 mg PO BID [facility]; Protocol Last Admin: 01/17/25 08:58 Dose: 50 mg Documented By: GUEVARA Olanzapine (Olanzapine 10 Mg Tablet) 10 mg PO BEDTIME [facility] Last Admin: 01/16/25 21:03 Dose: 10 mg Documented By: ARSH Omeprazole (Omeprazole 20 Mg Capsule.Dr) 20 mg PO DAILY@0630 [facility] Last Admin: 01/17/25 05:57 Dose: 20 mg Documented By: ARSH Ondansetron HCl (Ondansetron Hcl 4 Mg/2 Ml Vial) 4 mg IVPUSH Q8H PRN PRN Reason: Nausea and Vomiting Oxycodone HCl (Oxycodone Hcl Immed Release 5 Mg Tablet) 5 mg PO Q6H PRN PRN Reason: Pain, Severe (Pain Scale 7-10) Sodium Chloride (0.9 % Sodium Chloride Flush 3 Ml Syringe) [facility] Last Admin: 01/17/25 08:52 Dose: 3 ml Documented By: GUEVARA Vitamin D (Cholecalciferol (Vitamin D3) 25 Mcg Tablet) 50 mcg PO DAILY [facility] Last Admin: 01/17/25 08:55 Dose: 50 mcg Documented By: GUEVARA Labs 01/16/25 06:20 01/16/25 06:20 Labs: Laboratory Results - last 24 hr 01/14/25 01/16/25 01/16/25 07:19 16:12 20:10 POC Glucose 139 H 141 H CA 23 01/17/25 01/17/25 06:59 10:58 POC Glucose 144 H 156 H CA Microbiology Microbiology Results: Microbiology 01/14/25 12:15 Direct Acid Fast Bacilli Smear - Final Thoracentesis Fluid 01/14/25 12:15 Gram Stain - Final Thoracentesis Fluid Anaerobic Culture - Preliminary No growth to date. Body Fluid Culture - Final No growth after 2 days Assessment and Plan (1) Delirium: Status: Acute Plan Patient is an 84-year-old male with a past medical history significant for CAD/CABG, HTN, HLD, bipolar, type 2 diabetes, history of breast cancer treated with surgery and radiation 10 years ago, who presented to the ED due to a witnessed mechanical fall #. Hospital induced delirium: Will consult psych to optimize medications #. Acute mild exacerbation of congestive heart failure with reduced ejection fraction: Patient currently euvolemic. Will transition from IV to p.o. lasix. Initiated beta-priscila #. Atrial flutter with RVR: Rate controlled after IV digoxin load. Initiated p.o. digoxin daily. Will need digoxin level in a week. Also on beta-priscila as above. Initiated Eliquis #. 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 Underwent diagnostic and therapeutic thoracentesis by IR on 01/14 : 1L fluid drained. Pleural fluid is lymphocytic predominant. Cytology pending. #. Sepsis due to left-sided pneumonia: Initially admitted with IV antibiotics, transitioned to p.o. Ceftin and doxycycline (end date 01/22) #. Frequent falls: Orthostatics negative. B12 okay. PT recommending post acute placement. Spoke with the daughter at bedside who is agreeable. #. Mixed hyperlipidemia: On statin #. Insulin-dependent diabetes mellitus: Initiating Accu-Cheks with sliding scale insulin #. Lactic acidosis due to metformin use #. CAD status post CABG: On aspirin and statin #. Disorder: Continue home mood stabilizers DNR/DNI Lovenox Reason for continued hospitalization: Safe disposition Quality Stroke Does the patient have a stroke diagnosis?: No VTE Prior VTE?: No VTE Risk Level:: Medical - moderate - high VTE Device Contraindication: Treatment Not Indicated VTE Drug Contraindication: N/A - Med Ordered
[2025-01-17 15:50] LABS: Glucose, Whole Blood 103 mg/dL (60-115)
--- NOTE | 2025-01-17 17:28 | P.CNPS_ITS ---
History of Present Illness Date of Service: 01/17/2025 Chief Complaint: dizziness Discussed with referring provider: Yes Sources of Information: patient interviewed, chart reviewed and crisis/core team assessment reviewed HPI Narrative: Mr. Henderson is an 84 year-old who came to the ED after a fall. 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 He underwent thoracentesis and cytology is pending. Mr. Henderson is known to psychiatry at [facility] through previous admission for depression and report of hypomanic episdes. Of interest, mood disorder appeared same year he was found to have breast cancer and underwent tx back in 2017. Psychiatry was consulted due to delirium and management. Pt seen in his room with . Pt presents somewhat tired. He does not know that he is in the hospital nor how long he has been here nor the year. He is not able to provide any more information. This ghost writer spoke with daughter over the phone who reports pt is struggling to sleep at night and gets more confused then. He received olanzapine 10mg and ativan 0.5mg last night. He is awaiting to go to [facility]. Past Psychiatric History: Diagnosed with bipolar disorder, 1st hypomanic episode 2017. IPLOC at [facility] in either 2018 or 2019, related to intrusive thoughts of a knife, and hurting his . Was IPLOC on M5 here in fall 2018, received ECT. Current psychiatrist Dr. Dick at [facility]. [facility] Medical History History of left breast cancer CAD (coronary artery disease) Cardiac pacemaker in situ Sick sinus syndrome HTN (hypertension) Diabetes Hyperlipidemia Surgical History Hx of cataract surgery Hx of mastectomy History of permanent cardiac pacemaker placement Hx of CABG Family History: Mother diagnosed with bipolar disorder after assisted, he was hospitalized in [place]. received ECT 20 years ago, has been stable since. Social History: Retired. Lives with . Has 7 daughter, 8 sons. Family is supportive. Substance History: none Trauma History: None reported. Diagnostics Vital Signs (24Hr): Vital Signs - 24 hr 01/16/25 19:36 01/16/25 23:51 01/17/25 04:00 Temperature 97.2 F 97.0 F 96.7 F L Pulse Rate 80 51 76 Respiratory Rate 16 17 16 Blood Pressure 111/71 146/77 H 132/78 Pulse Oximetry 93 94 92 Oxygen Delivery Method Room Air Room Air Room Air 01/17/25 07:32 01/17/25 08:54 01/17/25 08:58 Temperature 98.3 F Pulse Rate 111 H 111 H Respiratory Rate 20 Blood Pressure 108/56 L 108/56 L Pulse Oximetry 94 Oxygen Delivery Method Room Air 01/17/25 11:10 01/17/25 15:49 Temperature 97.7 F 96.7 F L Pulse Rate 71 80 Respiratory Rate 20 18 Blood Pressure 114/76 104/68 Pulse Oximetry 94 93 Oxygen Delivery Method Room Air Room Air BMI result Body Mass Index 22.5 Labs 01/16/25 06:20 01/16/25 06:20 Labs: Laboratory Results - last 48 hr 01/14/25 01/15/25 01/16/25 07:19 20:13 06:20 WBC 13.1 H RBC 4.41 L Hgb 12.5 L Hct 38.9 L MCV 88.2 MCH 28.3 MCHC 32.1 RDW 15.0 Plt Count 363 MPV 9.6 Immature Gran % (Auto) 0.5 H Neut % (Auto) 82.9 H Lymph % (Auto) 7.5 L Hall % (Auto) 7.9 Eos % (Auto) 0.7 Baso % (Auto) 0.5 Lymph # (Auto) 1.0 L Hall # (Auto) 1.0 Eos # (Auto) 0.1 Baso # (Auto) 0.1 Abs Immat Gran (auto) 0.07 H Absolute Neuts (auto) 10.9 H Absolute Nucleated RBC 0.000 Nucleated RBC % (auto) 0.0 Sodium 141 Potassium 4.5 Chloride 107 Carbon Dioxide 24 Anion Gap 15 BUN 15 Creatinine 1.00 Estim Creat Clear Calc 57.2 Estimated GFR > 60 POC Glucose 108 Random Glucose 113 Calcium 9.2 CA 27-29 23 01/16/25 01/16/25 01/16/25 07:18 11:12 16:12 WBC RBC Hgb Hct MCV MCH MCHC RDW Plt Count MPV Immature Gran % (Auto) Neut % (Auto) Lymph % (Auto) Hall % (Auto) Eos % (Auto) Baso % (Auto) Lymph # (Auto) Hall # (Auto) Eos # (Auto) Baso # (Auto) Abs Immat Gran (auto) Absolute Neuts (auto) Absolute Nucleated RBC Nucleated RBC % (auto) Sodium Potassium Chloride Carbon Dioxide Anion Gap BUN Creatinine Estim Creat Clear Calc Estimated GFR POC Glucose 123 H 187 H 139 H Random Glucose Calcium CA 27-29 01/16/25 01/17/25 01/17/25 20:10 06:59 10:58 WBC RBC Hgb Hct MCV MCH MCHC RDW Plt Count MPV Immature Gran % (Auto) Neut % (Auto) Lymph % (Auto) Hall % (Auto) Eos % (Auto) Baso % (Auto) Lymph # (Auto) Hall # (Auto) Eos # (Auto) Baso # (Auto) Abs Immat Gran (auto) Absolute Neuts (auto) Absolute Nucleated RBC Nucleated RBC % (auto) Sodium Potassium Chloride Carbon Dioxide Anion Gap BUN Creatinine Estim Creat Clear Calc Estimated GFR POC Glucose 141 H 144 H 156 H Random Glucose Calcium CA 27-01/17/25 15:45 WBC RBC Hgb Hct MCV MCH MCHC RDW Plt Count MPV Immature Gran % (Auto) Neut % (Auto) Lymph % (Auto) Hall % (Auto) Eos % (Auto) Baso % (Auto) Lymph # (Auto) Hall # (Auto) Eos # (Auto) Baso # (Auto) Abs Immat Gran (auto) Absolute Neuts (auto) Absolute Nucleated RBC Nucleated RBC % (auto) Sodium Potassium Chloride Carbon Dioxide Anion Gap BUN Creatinine Estim Creat Clear Calc Estimated GFR POC Glucose 103 Random Glucose Calcium CA 27-29 Imaging Radiology Impressions: ITS Impressions Chest X-Ray 01/13/25 11:14 IMPRESSION: Moderate to large left pleural effusion. Underlying atelectasis or pneumonia at the left lung base is not excluded. Electronically signed by: Isac Reddy MD 01/13/2025 12:32 PM EDT Cervical Spine CT 01/13/25 12:04 IMPRESSION: No acute fracture. New moderate left pleural effusion. Extensive pyrophosphate deposition in the cruciate ligament. 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 Stable nodular changes in the right apex including a calcified granuloma. Electronically signed by: Arron Andrea MD 01/13/2025 01:58 PM EDT RP Head CT 01/13/25 12:04 IMPRESSION: No acute intracranial abnormality. Improved changes of chronic pansinusitis. Electronically signed by: Arron Andrea MD 01/13/2025 02:01 PM EDT RP Chest CT 01/13/25 14:53 IMPRESSION: 1. Moderate to large left pleural effusion with compressive atelectasis and/or consolidation of the majority of the left lower lobe and posterior segment left upper lobe. Pneumonia cannot be excluded given the appearance. 2. There are stellate nodular abnormalities throughout both aerated lungs as described, suspicious. Some of these may be related to old granulomatous changes although the noncalcified lesions cannot be characterized as definitively benign. Cannot exclude neoplastic disease/metastases. 3. 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 4. Extensive calcified lymph nodes throughout the mediastinum and hilum in keeping with prior granulomatous disease. 5. Additional ancillary findings as discussed in the body of the report. Electronically signed by: Davis Reese MD 01/13/2025 04:38 PM EDT RP Thoracentesis Ultrasound 01/14/25 11:45 IMPRESSION: Successful ultrasound-guided diagnostic left thoracentesis performed. Electronically signed by: Raphael Hilliard MD 01/14/2025 02:54 PM EDT RP Chest X-Ray 01/14/25 12:28 IMPRESSION: 1. Interval near complete resolution of left effusion. 2. No perceptible pneumothorax. 3. Mild residual opacity left base, likely residual consolidation. 4. Numerous chronic and additional findings, without change. Electronically signed by: Davis Reese MD 01/14/2025 12:52 PM EDT RP Chest X-Ray 01/15/25 09:45 IMPRESSION: 1. Mild reaccumulation of left effusion. 2. No perceptible pneumothorax. 3. Mild residual opacity left base, likely residual consolidation. 4. Numerous chronic and additional findings, without change. Electronically signed by: Davis Reese MD 01/15/2025 10:09 AM EDT RP Mental Status Exam Mental Status Exam Narrative: Pt with fair hygiene, mildly somnolent, in NAD Pt not engaging much in conversation with this ghost writer due to sedation. He is not oriented to place, month year nor situation. Medications Medications Current Medications Acetaminophen (Acetaminophen 325 Mg Tablet) 975 mg PO Q6H PRN PRN Reason: Pain, Mild 1-3,fever,headache Last Admin: 01/16/25 12:46 Dose: 975 mg Apixaban (Apixaban 5 Mg Tablet) 5 mg PO BID COUNTS INCLUDE 234 BEDS AT THE [facility] Atorvastatin Calcium (Atorvastatin Calcium 80 Mg Tablet) 80 mg PO DAILY COUNTS INCLUDE 234 BEDS AT THE [facility] Last Admin: 01/17/25 09:00 Dose: 80 mg Bupropion HCl (Bupropion Hcl Xl 150 Mg Tab.Er.24h) 150 mg PO DAILY COUNTS INCLUDE 234 BEDS AT THE [facility] Last Admin: 01/17/25 08:59 Dose: 150 mg Calcium Carbonate (Calcium Carbonate 750 Mg Tab.Chew) 750 mg PO Q4H PRN PRN Reason: Heartburn Cefuroxime Axetil (Cefuroxime Axetil 500 Mg Tablet) 500 mg PO Q12H COUNTS INCLUDE 234 BEDS AT THE [facility] Stop: 01/22/25 10:29 Last Admin: 01/17/25 09:02 Dose: 500 mg Cyanocobalamin (Cyanocobalamin (Vitamin B-12) 1,000 Mcg Tablet) 1,000 mcg PO DAILY COUNTS INCLUDE 234 BEDS AT THE [facility] Last Admin: 01/17/25 09:01 Dose: 1,000 mcg Dextrose (Dextrose 50 % 25 Gm/50 Ml Syringe) 25 gm IVPUSH Q15M PRN; Protocol PRN Reason: per Hypoglycemia Standing Ord. Digoxin (Digoxin 0.25 Mg Tablet) 0.25 mg PO DAILY COUNTS INCLUDE 234 BEDS AT THE [facility]; Protocol Last Admin: 01/17/25 09:01 Dose: 0.25 mg Doxycycline Monohydrate (Doxycycline Monohydrate 100 Mg Capsule) 100 mg PO Q12H TEDDY Stop: 01/22/25 10:29 Last Admin: 01/17/25 09:00 Dose: 100 mg Finasteride (Finasteride 5 Mg Tablet) 5 mg PO DAILY COUNTS INCLUDE 234 BEDS AT THE [facility] Last Admin: 01/17/25 08:53 Dose: 5 mg Folic Acid (Folic Acid 1 Mg Tablet) 1 mg PO DAILY TEDDY Last Admin: 01/17/25 09:00 Dose: 1 mg Furosemide (Furosemide 20 Mg Tablet) 20 mg PO DAILY COUNTS INCLUDE 234 BEDS AT THE [facility]; Protocol Last Admin: 01/17/25 08:54 Dose: 20 mg Glucose (Glucose Gel 15 Gm Gel..Gram.) 15 gm PO Q15M PRN; Protocol PRN Reason: per Hypoglycemia Standing Ord. Insulin Human Lispro (Insulin Lispro 100 Unit/Ml 3 Ml Vial) 0 unit SUBCUT QIDACHS COUNTS INCLUDE 234 BEDS AT THE [facility]; Protocol Last Admin: 01/17/25 16:36 Dose: Not Given Lamotrigine (Lamotrigine 25 Mg Tablet) 25 mg PO BID COUNTS INCLUDE 234 BEDS AT THE [facility] Last Admin: 01/17/25 08:54 Dose: 25 mg Latanoprost (Latanoprost 0.005 % Ophth [place] 2.5 Ml Drops) 1 drop EYE-BOTH BEDTIME COUNTS INCLUDE 234 BEDS AT THE [facility] Last Admin: 01/16/25 21:52 Dose: 1 drop Magnesium Hydroxide (Milk Of Magnesia 30 Ml Oral.Susp) 30 ml PO DAILY PRN PRN Reason: Constipation Melatonin (Melatonin 3 Mg Tablet) 6 mg PO BEDTIME PRN PRN Reason: Insomnia Last Admin: 01/14/25 20:43 Dose: 6 mg Metoprolol Tartrate (Metoprolol Tartrate 50 Mg Tablet) 50 mg PO BID COUNTS INCLUDE 234 BEDS AT THE [facility]; Protocol Last Admin: 01/17/25 08:58 Dose: 50 mg Olanzapine (Olanzapine 10 Mg Tablet) 10 mg PO BEDTIME COUNTS INCLUDE 234 BEDS AT THE [facility] Last Admin: 01/16/25 21:03 Dose: 10 mg Omeprazole (Omeprazole 20 Mg Capsule.Dr) 20 mg PO DAILY@0630 COUNTS INCLUDE 234 BEDS AT THE [facility] Last Admin: 01/17/25 05:57 Dose: 20 mg Ondansetron HCl (Ondansetron Hcl 4 Mg/2 Ml Vial) 4 mg IVPUSH Q8H PRN PRN Reason: Nausea and Vomiting Oxycodone HCl (Oxycodone Hcl Immed Release 5 Mg Tablet) 5 mg PO Q6H PRN PRN Reason: Pain, Severe (Pain Scale 7-10) Sodium Chloride (0.9 % Sodium Chloride Flush 3 Ml Syringe) 3 ml IVFLUSH QSHIFT COUNTS INCLUDE 234 BEDS AT THE [facility] Last Admin: 01/17/25 16:11 Dose: 3 ml Trazodone HCl (Trazodone Hcl 50 Mg Tablet) 50 mg PO BEDTIME COUNTS INCLUDE 234 BEDS AT THE [facility] Vitamin D (Cholecalciferol (Vitamin D3) 25 Mcg Tablet) 50 mcg PO DAILY COUNTS INCLUDE 234 BEDS AT THE [facility] Last Admin: 01/17/25 08:55 Dose: 50 mcg Allergies Allergies Allergy/AdvReac Type Severity Reaction Status Date / Time Penicillins Allergy Unknown Unknown Verified 01/13/25 12:04 metoprolol AdvReac Intermediate bradycardia Verified 01/13/25 12:04 timolol AdvReac Intermediate low bp Verified 01/13/25 12:04 tamsulosin (From Flomax) AdvReac Mild Diarrhea Verified 01/13/25 12:04 beta blockers AdvReac Hypotension Uncoded 01/13/25 12:04 Assessment & Plan Assessment & Plan (1) Delirium due to general medical condition: Status: Acute Code(s): F05 - Delirium due to known physiological condition Plan Mr. Henderson is an 84 year-old male with was brought to [facility] ED due to a fall. Incidentally, it was found that he has large left pleural effusion with nodules throughout both lungs ad blastic osseous metastatic lesions throughout the spine and ribs. He underwent thoracentesis. cytology pending. He presented as more combative at night. Psychiatry consulted to provide recommendations in terms of medications for sleep and agitation. PLAN 1. recommend scheduling trazodone 50mg po qhs. can have ativan 0.5mg po PRN for sleep. If patient agitated can offer olanzapine 2.5mg-5mg q6h prn agitation, avoid over sedation. Total time managing care of this patient today ____ minutes.
[2025-01-17 20:36] LABS: Glucose, Whole Blood 104 mg/dL (60-115)
[2025-01-17] MEDS: Latanoprost 0.005 % Ophth Sol 2.5 ML DROPS 1 DROP EYE-BOTH (20:41)
[2025-01-18] VITALS (7 sets, daily range): BP systolic 93–133; BP diastolic 59–88; PULSE 80–82; RESP 16–18; TEMP 36.2–36.8; O2SAT 91–93
[2025-01-18 07:45] LABS: Glucose, Whole Blood 88 mg/dL (60-115)
[2025-01-18] MEDS: 0.9 % Sodium Chloride Flush 3 ML SYRINGE IVFLUSH (08:08)
[2025-01-18] MEDS: buPROPion HCl XL 150 MG TAB.ER.24H PO (08:08)
--- NOTE | 2025-01-18 09:46 | P.DS_ITS ---
DS: Providers Provider Date of Service: 01/18/25 Date of admission: 01/13/25 18:14 Date of discharge: 01/18/25 Primary care physician: Teresa Duran MD Consults: 01/13/25 21:36 Consult to Hematology / Oncology Routine Consulting Provider: [facility] Oncology/Hematology Reason for consultation: hx breast ca, imaging with ?mets Has provider been notified: No Consult to Pulmonology Routine Consulting Provider: [facility] Pulmonology Services Reason for consultation: pleural effusion, spiculated lung nodules, hx breast ca Has provider been notified: No 01/15/25 09:56 Consult to Cardiology Routine Consulting Provider: [facility] Cardiovascular Specialists Reason for consultation: Tachycardia, 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 01/17/25 08:47 Consult to Psychiatry Routine Consulting Provider: [facility] Psych Covering Reason for consultation: management of delirium ; family request DS: Diagnosis Discharge Diagnosis (1) Delirium due to general medical condition: Status: Acute DS: Summary Hospital Course Hospital Course: HPI as per admitting provider:Patient is an 84-year-old male with a past medical history significant for CAD/CABG, HTN, HLD, bipolar, type 2 diabetes, history of breast cancer treated with surgery and radiation 10 years ago, who presented to the ED due to a witnessed mechanical fall earlier today due to dizziness. There was no head strike or loss of consciousness. Patient reports that he fell onto his left side. He is not having any pain at this time. He denies any chest pain, shortness of breath, nausea, vomiting, URI symptoms or urinary symptoms i ncluding frequency, urgency or dysuria. His workup in the ED his workup had incidental findings including moderate to large left pleural effusion with compressive atelectasis and/or consolidation of the majority of the left lower lobe and posterior segment left lower lobe. Pneumonia can not be excluded given the appearance. There are also stellate nodular abnormalities throughout both aerated lungs as described, suspicious. Some of these may be related to old granulomatous changes although the noncalcified lesions can not be characterized as definitive fairly benign. Can not exclude neoplastic disease/metastasis. 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 Extensive calcified lymph nodes throughout the mediastinum and hilum in keeping with prior granulomatous disease. Head CT was negative for acute intracranial abnormality. Hospital course: #. Large left pleural effusion: Imaging with large left pleural effusion. Underwent diagnostic and therapeutic thoracentesis by IR on 01/14 : 1L fluid drained. Pleural fluid is lymphocytic predominant. Cytology without evidence of malignancy. Will need outpatient follow-up with pulmonology #. Blastic osseous metastatic lesions throughout spinning and drives. Does have history of breast cancer. Outpatient Oncology follow-up #. Acute mild exacerbation of congestive heart failure with reduced ejection fraction: Patient was diuresed with IV diuretics and is currently euvolemic prior to discharge. Appreciate Cardiology. Patient stable to be discharged with Lasix and beta-priscila #. Hospital induced delirium: He developed hyperactive delirium during hospitalization. Psych was consulted and trazodone 50 mg added at bedtime. Also patient will be discharged with a prescription of Ativan 0.5 mg p.r.n. at bedtime #. Atrial flutter with RVR: Rate controlled after IV digoxin load. Initiated p.o. digoxin daily. Will need digoxin level in a week. Also on beta-priscila as above. Initiated Eliquis #. Sepsis due to left-sided pneumonia: Initially admitted with IV antibiotics, transitioned to p.o. Ceftin and doxycycline (end date 01/22) #. Frequent falls: Orthostatics negative. B12 okay. PT recommending post acute placement. Spoke with the daughter at bedside who is agreeable. Patient to be discharged to [facility] rehab Time Attestation Discharge Coordination Time (in mins): 45 minutes Quality: Safe Use of Opioids Does Pt have an Active Cancer Diagnosis on the Problem List?: No Quality: Stroke Does the patient have a stroke diagnosis?: No Physical Exam Vital Signs: Vital Signs: Last Vital Signs Temp 98.3 F 01/18/25 07:27 Pulse 82 01/18/25 09:23 Resp 16 01/18/25 07:27 BP 116/88 01/18/25 09:23 Pulse Ox 91 L 01/18/25 07:27 O2 Del Method Room Air 01/18/25 07:27 BMI result Body Mass Index 22.5 Const: Other: Middle-aged male lying in bed in no distress Neck supple, no JVD Regular rate and rhythm, S1-S2 heard Diminished left-sided lung sounds Abdomen soft nontender, no guarding, no rigidity Patient is awake, alert and oriented x2; no focal motor deficit Psych: Normal mood No pedal edema DS: Data Data Completed and Pending Completed studies during hospitalization [Text1]: Pending at discharge 01/14/25 09:43 Cytology [PTH] Routine Procedures Drainage of Left Knee Joint, Percutaneous Approach (03/18/21) Other Electroconvulsive Therapy (03/18/21) Labs on day of discharge: Laboratory Results - last 24 hr 01/17/25 01/17/25 01/17/25 10:58 15:45 20:28 POC Glucose 156 H 103 104 01/18/25 07:25 POC Glucose 88 Preliminary micro results at discharge 01/14/25 12:15 Anaerobic Culture - Preliminary Thoracentesis Fluid No growth to date. 01/13/25 15:03 Blood Culture - Preliminary Blood - Venous No growth after 48 hours. 01/13/25 15:03 Blood Culture - Preliminary Blood - Venous No growth after 48 hours. Discharge Plan Discharge Anticipated Discharge Date/Time: 01/18/25 09:36 Patient Disposition: Xfer SNF Discharge Diagnosis: Large left pleural effusion Congestive heart failure with reduced ejection fraction Atrial flutter with RVR Referrals: [facility] [Outside] - 1 Week Teresa Duran MD [Primary Care Provider, Medical] - 1 Week Discharge Medications: New trazodone 50 mg Tablet 50 mg PO BEDTIME 30 Days Qty: 30 0RF digoxin 250 mcg (0.25 mg) Tablet 0.25 mg PO DAILY 30 Days Qty: 30 0RF Protocol: Hold for HR <: HOLD for HR < : 60 lorazepam 0.5 mg Tablet 0.5 mg PO BEDTIME PRN (Reason: Sleep) 10 Days Qty: 15 0RF doxycycline monohydrate 100 mg Capsule 100 mg PO Q12H 4 Days Qty: 8 0RF metoprolol tartrate 50 mg Tablet 50 mg PO BID 30 Days Qty: 60 0RF Protocol: Hold for SBP/HR < HOLD for SBP < : 90 HOLD for HR < : 60 furosemide 20 mg Tablet 20 mg PO DAILY 30 Days Qty: 30 0RF Protocol: Hold for SBP< HOLD for SBP < : 90 cefuroxime axetil 500 mg Tablet 500 mg PO Q12H 4 Days Qty: 8 0RF Eliquis 5 mg Tablet 5 mg PO BID 30 Days Qty: 60 0RF Continued metformin 500 mg tablet extended release 24 hr 1,000 mg PO DAILY olanzapine 10 mg Tablet 10 mg PO BEDTIME 30 Days Qty: 30 0RF atorvastatin 80 mg tablet 80 mg PO DAILY 90 Days Qty: 90 3RF alendronate 70 mg tablet 70 mg PO SA 30 Days Qty: 5 0RF lamotrigine 25 mg tablet 25 mg PO BID Qty: 60 0RF finasteride 5 mg tablet 5 mg PO DAILY 30 Days Qty: 30 0RF alfuzosin 10 mg tablet extended release 24 hr 1 tab PO BEDTIME 90 Days Qty: 90 0RF melatonin 5 mg tablet 5 mg PO BEDTIME PRN (Reason: insomnia) cholecalciferol (vitamin D3) 50 mcg (2,000 unit) tablet 50 mcg PO DAILY pantoprazole 40 mg tablet,delayed release (DR/EC) 40 mg PO DAILY@0630 Lumigan 0.01 % drops 1 drp ophthalmic (eye) BEDTIME bupropion HCl 150 mg tablet extended release 24 hr 150 mg PO DAILY folic acid 1 mg tablet 1 mg PO DAILY cyanocobalamin (vitamin B-12) [Vitamin B-12] 1,000 mcg tablet 1,000 mcg PO DAILY aspirin [Adult Aspirin Regimen] 81 mg tablet,delayed release (DR/EC) 162 mg PO DAILY Discharge Orders: Discharge Order (Routine); Ordered 01/18/25 Ordered By: Yossi Santamaria Diet: Low salt diet Activity on Discharge: As tolerated Stand Alone Forms: Patient Portal Discharge page Print Language: Cook Islander Care Plan Goals: Follow-up with PCP within 1 week Repeat blood work within 1 week including digoxin levels Follow-up with oncology and pulmonology Health Concerns: Large left pleural effusion Blastic osseous metastatic lesions throughout the spine Congestive heart failure with reduced ejection fraction Atrial flutter with RVR Plan of Treatment: Doxycycline twice daily x4 days (end date 01/22) Cefuroxime twice daily x4 days (end date 01/22) Digoxin daily Metoprolol twice daily Eliquis twice daily Lasix 20 mg daily Trazodone 50 mg at bedtime Ativan 0.5 mg as needed at bedtime Assessment: As above
--- NOTE | 2025-01-18 09:57 | MHC.CM.PN ---
Patient medically cleared for dc to STR at [facility]. BLS scheduled for 12pm. Patient, daughter/HCP , RN and MD aware. IMM delivered.
--- NOTE | 2025-01-18 10:57 | PC.NURSE ---
This RN attempted to call [facility] for hand off report, no one picked up the phone waited on the line for 10 minutes.
[2025-01-18 11:17] LABS: Glucose, Whole Blood 166 mg/dL (60-115)
== END 2025-01-18 13:09 | disposition skilled nursing facility (03) | DRG 871 ==
LOC: HO.ED 15:59 → HO.EDOVER 18:52 → HO.IMC 19:24
PROVIDERS: Emergency Medicine; Internal Medicine; Physician Assistant; Radiology Diagnostic Radiology; Admitting Provider Student in an Organized Health Care Education/Training Program; Emergency Provider Emergency Medicine Emergency Medical Services; PCP Internal Medicine; Visit Provider Student in an Organized Health Care Education/Training Program
PROC: 0W9B3ZZ Drainage of Left Pleural Cavity, Percutaneous Approach (ICD-10-PCS; principal; 2025-01-14 11:30)
DX: A41.9 Sepsis, unspecified organism (principal); I50.23 Acute on chronic systolic (congestive) heart failure; J18.9 Pneumonia, unspecified organism; J91.8 Pleural effusion in other conditions classified elsewhere; E87.21 Acute metabolic acidosis; J98.11 Atelectasis; C79.51 Secondary malignant neoplasm of bone; I42.9 Cardiomyopathy, unspecified; I48.92 Unspecified atrial flutter; F05 Delirium due to known physiological condition; Z95.0 Presence of cardiac pacemaker; I25.10 Atherosclerotic heart disease of native coronary artery without angina pectoris; Z66 Do not resuscitate; F39 Unspecified mood [affective] disorder; E78.2 Mixed hyperlipidemia; Z20.822 Contact with and (suspected) exposure to COVID-19; R29.6 Repeated falls; Z85.3 Personal history of malignant neoplasm of breast; Z90.12 Acquired absence of left breast and nipple; Z95.1 Presence of aortocoronary bypass graft; Z79.82 Long term (current) use of aspirin; Z79.84 Long term (current) use of oral hypoglycemic drugs; Z79.899 Other long term (current) drug therapy
CPT/HCPCS: 32555; 36415; 70450; 71045; 71046; 71250; 72125; 80048; 80076; 81003; 82042; 82150; 82378; 82607; 82746; 82945; 82947; 83605; 83615; 83690; 83880; 83986; 84153; 84157; 84484; 85025; 86300; 87040; 87070; 87073; 87116; 87205; 87206; 87637; 88112; 88305; 88341; 88342; 89051; 93005; 93306; 97110; 97162; 97530; 99285; J0616; J0696; J1160; J1271; J1650; J1938; J2003; J7120

== ENCOUNTER → 2025-01-13 11:50 | Outpatient (BNV) | payer MEDICARE, SELFPAY | PROVIDERS: Emergency Provider Emergency Medicine; PCP Internal Medicine; Visit Provider Radiology Diagnostic Radiology | DX: J98.11 Atelectasis (principal); J90 Pleural effusion, not elsewhere classified | CPT/HCPCS: 71045; 71250 ==

== ENCOUNTER → 2025-01-13 11:50 | Outpatient (BNV) | payer MEDICARE, SELFPAY | PROVIDERS: Emergency Provider Emergency Medicine; PCP Internal Medicine; Visit Provider Internal Medicine Cardiovascular Disease | DX: I48.92 Unspecified atrial flutter (principal); I44.0 Atrioventricular block, first degree | CPT/HCPCS: 93010 ==

== ENCOUNTER 2025-01-13 18:14 | Outpatient (BNV) | payer MEDICARE, SELFPAY | END 2025-01-15 09:45 | PROVIDERS: Admitting Provider Student in an Organized Health Care Education/Training Program; Emergency Provider Emergency Medicine Emergency Medical Services; PCP Internal Medicine; Visit Provider Radiology Diagnostic Radiology | DX: R06.00 Dyspnea, unspecified (principal) | CPT/HCPCS: 71045 ==

== ENCOUNTER 2025-01-13 18:14 | Outpatient (BNV) | payer MEDICARE, SELFPAY | END 2025-01-14 12:28 | PROVIDERS: Admitting Provider Student in an Organized Health Care Education/Training Program; Emergency Provider Emergency Medicine Emergency Medical Services; PCP Internal Medicine; Visit Provider Radiology Diagnostic Radiology | DX: J90 Pleural effusion, not elsewhere classified (principal); R06.00 Dyspnea, unspecified | CPT/HCPCS: 32555 ==

== ENCOUNTER 2025-01-13 18:14 | Outpatient (BNV) | payer MEDICARE, SELFPAY | END 2025-01-14 07:00 | PROVIDERS: Admitting Provider Student in an Organized Health Care Education/Training Program; Emergency Provider Emergency Medicine Emergency Medical Services; PCP Internal Medicine; Visit Provider Internal Medicine Cardiovascular Disease | DX: I48.92 Unspecified atrial flutter (principal); J90 Pleural effusion, not elsewhere classified | CPT/HCPCS: 93306 ==

== ENCOUNTER → 2025-01-13 18:14 | Outpatient (BNV) | payer MEDICARE, SELFPAY | PROVIDERS: Admitting Provider Student in an Organized Health Care Education/Training Program; Emergency Provider Emergency Medicine Emergency Medical Services; PCP Internal Medicine; Visit Provider Hospitalist | DX: J90 Pleural effusion, not elsewhere classified (principal); R91.1 Solitary pulmonary nodule; J18.9 Pneumonia, unspecified organism | CPT/HCPCS: 99233 ==

== ENCOUNTER → 2025-01-13 18:14 | Outpatient (BNV) | payer MEDICARE, SELFPAY | PROVIDERS: Admitting Provider Student in an Organized Health Care Education/Training Program; Emergency Provider Emergency Medicine Emergency Medical Services; PCP Internal Medicine; Visit Provider Student in an Organized Health Care Education/Training Program | DX: A41.9 Sepsis, unspecified organism (principal); J18.9 Pneumonia, unspecified organism; J90 Pleural effusion, not elsewhere classified; R91.1 Solitary pulmonary nodule; M89.9 Disorder of bone, unspecified; R29.6 Repeated falls | CPT/HCPCS: 99223; 99233 ==

== ENCOUNTER → 2025-01-13 18:14 | Outpatient (BNV) | payer MEDICARE, SELFPAY | PROVIDERS: Admitting Provider Student in an Organized Health Care Education/Training Program; Emergency Provider Emergency Medicine Emergency Medical Services; PCP Internal Medicine; Visit Provider Internal Medicine | DX: M89.8X9 Other specified disorders of bone, unspecified site (principal) | CPT/HCPCS: 99222 ==

== ENCOUNTER → 2025-01-13 18:14 | Outpatient (BNV) | payer MEDICARE, SELFPAY | PROVIDERS: Admitting Provider Student in an Organized Health Care Education/Training Program; Emergency Provider Emergency Medicine Emergency Medical Services; PCP Internal Medicine; Visit Provider Internal Medicine Cardiovascular Disease | DX: I48.92 Unspecified atrial flutter (principal); I42.9 Cardiomyopathy, unspecified; Z95.0 Presence of cardiac pacemaker; I25.10 Atherosclerotic heart disease of native coronary artery without angina pectoris | CPT/HCPCS: 99222 ==

== ENCOUNTER → 2025-01-13 18:14 | Outpatient (BNV) | payer MEDICARE, SELFPAY | PROVIDERS: Admitting Provider Student in an Organized Health Care Education/Training Program; Emergency Provider Emergency Medicine Emergency Medical Services; PCP Internal Medicine; Visit Provider Social Worker | DX: F03.911 Unspecified dementia, unspecified severity, with agitation (principal); F05 Delirium due to known physiological condition | CPT/HCPCS: 99232 ==

== ENCOUNTER → 2025-01-31 14:15 | Outpatient (BNV) | payer MEDICARE, SELFPAY | PROVIDERS: PCP Internal Medicine Infectious Disease; Visit Provider Internal Medicine | DX: J90 Pleural effusion, not elsewhere classified (principal); R16.2 Hepatomegaly with splenomegaly, not elsewhere classified; D64.9 Anemia, unspecified | CPT/HCPCS: 99214 ==